=== PATIENT | male | born 1970 | race Caucasian/White ===

== ENCOUNTER 2022-01-06 07:49 | Emergency (ER) | payer MEDICAID, SELFPAY ==
[2022-01-06] VITALS (64 sets, daily range): BP systolic 132–165; BP diastolic 67–99; PULSE 59–81; RESP 0–21; TEMP 36.7; O2SAT 91–97
--- NOTE | 2022-01-06 07:30 | RT.EKG_ITS ---
APPROVED REPORT Exam: Resting ECG Reason for Exam: chest pressure Patient Location: E HR:64 bpm ECG Measurements Heart Rate 64 AXIS DE 67 P -14 QRSd 108 QRS 46 QT 437 T 88 QTc 450 Conclusion Sinus rhythm...normal P axis, V-rate 60- 99. Sinus. Normal axis. T wave inversion aVL. Less than 1mm ST elevation III and aVF. No STEMI. I have reviewed and interpreted ECG and agree with software generated interpretation.
--- NOTE | 2022-01-06 08:15 | DI.RAD_ITS ---
Exam(s) XR PORTABLE CHEST AP EXAM: XR PORTABLE CHEST AP CLINICAL HISTORY: shortness of breath, r/o acute disease TECHNIQUE: 2D digital imaging was performed of the chest. Two images were obtained. AP views were obtained. COMPARISON: No exams were available for comparison FINDINGS: MEDIASTINUM: Normal. HEART: Normal. The transvenous pacing wires are in good position. PULMONARY VASCULATURE: Normal. LUNGS: Clear. PLEURAL SPACE: No pleural effusion or pneumothorax. BONE:Within normal limits for the patient's age. OTHER FINDINGS:Normal. IMPRESSION: No acute pulmonary findings. DATA REPOSITORY: RADIATION DOSE DELIVERED:
--- NOTE | 2022-01-06 08:18 | ED.GENADUL_ITS ---
Discharge Plan Disposition Patient Disposition: HOME Condition: Stable Discharge Details Clinical Impression: Dyspnea on exertion, Noncompliance with medications Primary Care Provider: Unknown,Unknown ED Provider: Lisa Nieto Home Meds and New Rx's Prescriptions: New amiodarone 200 mg tablet 200 mg PO DAILY Qty: 30 0RF atorvastatin 80 mg tablet 80 mg PO DAILY Qty: 30 0RF bumetanide 1 mg tablet 1 mg PO BID Qty: 60 0RF citalopram 20 mg tablet 20 mg PO DAILY Qty: 30 0RF clopidogrel [Plavix] 75 mg tablet 75 mg PO DAILY Qty: 30 0RF folic acid 1 mg tablet 2 mg PO DAILY Qty: 30 0RF buspirone 15 mg tablet 30 mg PO BID Qty: 120 0RF gabapentin 300 mg capsule 300 mg PO TID Qty: 90 0RF hydralazine 50 mg tablet 50 mg PO TID Qty: 90 0RF isosorbide mononitrate 30 mg tablet extended release 24 hr 30 mg PO DAILY Qty: 30 0RF losartan 25 mg tablet 25 mg PO DAILY Qty: 30 0RF metoprolol succinate 25 mg tablet extended release 24 hr 75 mg PO DAILY Qty: 90 0RF nicotine 21 mg/24 hr patch 24 hour 1 patch transdermal DAILY Qty: 28 0RF pantoprazole [Protonix] 40 mg tablet,delayed release (DR/EC) 40 mg PO DAILY Qty: 30 0RF trazodone 50 mg tablet 50 mg PO QHS Qty: 30 0RF Continued atorvastatin 80 mg Tablet 80 mg PO QHS trazodone 50 mg Tablet 50 mg PO QHS isosorbide mononitrate 30 mg Tablet Extended Release 24 Hr 30 mg PO DAILY thiamine HCl (vitamin B1) [Vitamin B-1] 100 mg Tablet 100 mg PO DAILY clopidogrel 75 mg Tablet 75 mg PO DAILY aspirin 81 mg Tablet,Delayed Release (Dr/Ec) 81 mg PO DAILY citalopram 20 mg Tablet 30 mg PO DAILY pantoprazole 40 mg Tablet,Delayed Release (Dr/Ec) 40 mg PO DAILY losartan 25 mg Tablet 25 mg PO DAILY nicotine 21 mg/24 hr Patch 24 Hour 1 patch TRANSDERMAL Q24H bumetanide 1 mg Tablet 1 mg PO BID folic acid 1 mg Tablet 2 mg PO DAILY hydralazine 50 mg Tablet 50 mg PO TID buspirone 15 mg Tablet 30 mg PO BID multivitamin with iron-mineral Tablet 1 tab PO DAILY amiodarone 100 mg Tablet 100 mg PO DAILY gabapentin 300 mg Tablet 300 mg PO TID ranolazine 500 mg Tablet Extended Release 12 Hr 500 mg PO BID buprenorphine-naloxone 2-0.5 mg Film 1 film BUCCAL DAILY Rx Instructions: place 1 strip/tab under (each) side of tongue buprenorphine-naloxone 8-2 mg Film 1 film SUBLINGUAL DAILY metoprolol succinate 25 mg Capsule,Sprinkle,Er 24hr 75 mg PO DAILY Discharge Instructions Instructions: Dyspnea (ED) Additional Instructions: Your lab work, EKGs and imaging today are reassuring and showed no evidence of acute concerning or significant findings. Take your regular medications as directed. You were given prescriptions of all of your medications to fill tomorrow. Follow-up with [facility] services at [phone] as directed. You have been placed on care management list to arrange for a follow-up appointment with a primary care doctor for evaluation. Return immediately to the emergency department if you develop any worsening or new concerning symptoms. Discharge Data Discharge Physician: Lisa Nieto Medical Decision Making 0750 -- 51-year-old male with multiple medical problems including obesity, hypertension, hyperlipidemia, cardiac arrest, defibrillator, pacemaker and co ronary artery stent placement presents with intermittent shortness of breath and substernal chest pressure for the past few days, mostly worse with exertion. Has not taken any of his regular medications for the past 4 days as they were left in a friend's car. These meds include among others, amiodarone, Plavix, metoprolol, torsemide and Bumex, ativan, suboxone. EKG on arrival notes a rate of 64, sinus, normal axis, no STEMI. There is T wave inversion in aVL and less than [address] elevation in 3 and aVF but does not meet criteria for STEMI. EKG from [facility] October 2019 appears similar with no significant change today. He has 1+ pitting edema in the proximal lower extremities bilaterally. He has diminished lung sounds in the bases bilaterally but no obvious crackles, wheezes or rhonchi. His heart rate, blood pressure, respiratory rate and oxygen saturation are within normal limits. Differential diagnosis includes acute CHF, ACS, opiate withdrawal, benzodiazepine withdrawal, electrolyte abnormality, arrhythmia. Will obtain screening labs, chest x-ray, COVID swab and give 40 mg Lasix IV and 1 mg Ativan p.o. Review of [facility] and [facility] records note that patient has had 7 coronary stents placed dating back to 2001, ischemic cardiomyopathy with an EF of 45 to 50% and apical hypokinesis on echo 01/07/2021 who had an admission at [facility] in January 2021 for type I NSTEMI and subsequently underwent a left heart cath which noted in-stent restenosis of 4 prior stents not amenable to PCI or CABG and recommended medical management. 09 -- labs and imaging reviewed. Normal white blood cell count. Bicarb 33.6, review of [facility] records note a bicarb of 35 in January 21. BNP 1956. Troponin negative. COVID-negative. Chest x-ray no obvious acute disease. 1045 -- patient evaluated by [facility] with SBIRT due to substance abuse history and endorsed depression. He admits to self cutting. He denies any active suicidal plan. We will have evaluation by [facility]. 1200 -- Pt reassessed and still c/o shortness of breath - O2 sat 92%. Will give a dose of his bumetanide and check a d dimer. Will consult [facility] cardiology for recommendations. 1330 --patient evaluated by [facility] --patient denies suicidal plan. Safety plan made. Referral to [facility] for follow-up placed. 1500 --repeat EKG unchanged. Repeat troponin negative. Discussed with [facility] cardiology who reviewed patient's EKGs and appear unchanged compared to prior and no indication for treatment. Patient reassessed and he feels better. Oxygen saturation 97 to 99% while sitting up, and decreased to 92% while sleeping. Due to body habitus, suspected sleep apnea. Patient feels comfortable going home. Patient requested doses of his medication for this evening as well as prescriptions. Patient was given his daily dose of the medications today as well as doses for home this evening and refill all of his prescriptions. He is placed on care management list to arrange for a follow-up appoint with her primary care doctor for reevaluation. Usual and customary return precautions given prior to discharge. Medical Records Medical records reviewed: Yes I reviewed the patient's medical records. Imaging Data Radiologic Study: Radiologist's impression: XR PORTABLE CHEST AP CLINICAL HISTORY:? shortness of breath, r/o acute disease TECHNIQUE:? 2D digital imaging was performed of the chest.? Two images were obtained.? AP views were obtained. COMPARISON:? No exams were available for comparison FINDINGS: MEDIASTINUM: Normal.? HEART: Normal. The transvenous pacing wires are in good position. PULMONARY VASCULATURE: Normal. LUNGS: Clear. ? PLEURAL SPACE: No pleural effusion or pneumothorax. BONE:Within normal limits for the patient's age.? OTHER FINDINGS:Normal.? IMPRESSION: No acute pulmonary findings. CT CHEST PE CTA CLINICAL HISTORY: ? chest pain, sob, r/o PE. TECHNIQUE:? Imaging Protocol:? Axial CT angiography was performed with multi- slice acquisition and multi-planar and/or 3D reconstructions. CONTRAST MATERIAL:? Intravenous: Omnipaque 350 contrast volume:100 mL COMPARISON:? CR XR PORTABLE CHEST AP from 01/06/2022 FINDINGS: The examination is limited due to patient motion artifact.? Tracheobronchial tree: Patent where visualized. Pulmonary parenchyma: No consolidation or dominant measurable mass. No architectural distortion. Pulmonary Arteries: The peripheral pulmonary arteries are under opacified limiting evaluation.? No large central pulmonary embolus is identified.? Mediastinum and Lorraine: No dominant adenopathy or fluid collection.? The esophagus is unremarkable.? Visualized thyroid gland: Unremarkable.? Pleura: No effusion or pneumothorax. Heart: The heart is not dilated. Coronary artery calcifications are present.? There is no evidence of right heart strain.? No pericardial effusion.? Aorta: Thoracic aorta non-dilated. No evidence of dissection. Upper abdomen:? Unremarkable. Tubes, Catheters, and Lines: The patient has a dual lead pacing device. ? Soft tissues: Bilateral gynecomastia is present.? Bones: Within normal limits for the patient's age.There are old healed bilateral rib fractures noted. IMPRESSION: 1. Decreased opacification of the peripheral pulmonary arteries limiting evaluation.? No large central pulmonary embolus is identified.? No evidence of right heart strain. 2. No evidence of thoracic aortic aneurysm or dissection. 3. Results of this exam have been verbally communicated with provider. Lab Data Lab results reviewed: Yes I reviewed the patient's lab results. Labs: Laboratory Tests Range/Units 01/06/22 01/06/22 01/06/22 08:03 08:03 08:03 WBC (4.4-10.8) 10^3/uL 8.44 RBC (4.36-5.78) 10^6/uL 4.18 L Hgb (13.5-17.5) g/dL 12.7 L Hct (40.0-50.0) % 39.2 L MCV (80-95) fL 94 MCH (27.0-33.0) pg 30.4 MCHC (32.0-36.0) % 32.4 RDW (11.8-14.1) % 12.8 Plt Count (130-400) 10^3/uL 323 MPV (8.0-11.0) fL 9.7 Immature Gran % 0.7 Neutrophils % 66.5 Lymphocytes % 21.7 Monocytes % 7.8 Eosinophils % 2.6 Basophils % 0.7 Nucleated RBC % (0.0-0.3) % 0.0 Absolute Neutrophils (1.2-6.7) 10^3/uL 5.61 Absolute Lymphocytes (1.2-3.4) 10^3/uL 1.83 Absolute Monocytes (0.1-0.8) 10^3/uL 0.66 Absolute Eosinophils (0.0-0.7) 10^3/uL 0.22 Absolute Basophils (0.0-0.2) 10^3/uL 0.06 D-Dimer (<500) ng/mlFEU Sodium (136-145) mmol/L 140 Potassium (3.5-5.1) mmol/L 4.2 Chloride (98-107) mmol/L 104 Carbon Dioxide (21.0-32.0) mmol/L 33.6 H Anion Gap (3-11) mmol/L 2.4 L BUN (7-18) mg/dL 12 Creatinine (0.70-1.30) mg/dL 1.1 Est GFR (CKD-EPI 2020) (mL/min/1.73m2) 80.27 Glucose (74-106) mg/dL 123 H Calcium (8.5-10.1) mg/dL 9.0 Magnesium (1.8-2.4) mg/dL 1.8 Total Bilirubin (0.2-1.0) mg/dL 0.3 AST (15-37) U/L 10 L ALT (16-63) U/L 17 Alkaline Phosphatase (46-116) U/L 91 Troponin I (<or=60) ng/L < 50 NT-Pro-B Natriuret Pep (<300) pg/mL 1957 H Cancelled Total Protein (6.4-8.2) g/dL 7.5 Albumin (3.4-5.0) g/dL 3.5 COVID-19 Source SARS-CoV-2 (PCR) (Negative) Range/Units 01/06/22 01/06/22 01/06/22 08:03 08:30 11:18 WBC (4.4-10.8) 10^3/uL RBC (4.36-5.78) 10^6/uL Hgb (13.5-17.5) g/dL Hct (40.0-50.0) % MCV (80-95) fL MCH (27.0-33.0) pg MCHC (32.0-36.0) % RDW (11.8-14.1) % Plt Count (130-400) 10^3/uL MPV (8.0-11.0) fL Immature Gran % Neutrophils % Lymphocytes % Monocytes % Eosinophils % Basophils % Nucleated RBC % (0.0-0.3) % Absolute Neutrophils (1.2-6.7) 10^3/uL Absolute Lymphocytes (1.2-3.4) 10^3/uL Absolute Monocytes (0.1-0.8) 10^3/uL Absolute Eosinophils (0.0-0.7) 10^3/uL Absolute Basophils (0.0-0.2) 10^3/uL D-Dimer (<500) ng/mlFEU 925 H Sodium (136-145) mmol/L Potassium (3.5-5.1) mmol/L Chloride (98-107) mmol/L Carbon Dioxide (21.0-32.0) mmol/L Anion Gap (3-11) mmol/L BUN (7-18) mg/dL Creatinine (0.70-1.30) mg/dL Est GFR (CKD-EPI 2020) (mL/min/1.73m2) Glucose (74-106) mg/dL Calcium (8.5-10.1) mg/dL Magnesium (1.8-2.4) mg/dL Total Bilirubin (0.2-1.0) mg/dL AST (15-37) U/L ALT (16-63) U/L Alkaline Phosphatase (46-116) U/L Troponin I (<or=60) ng/L < 50 NT-Pro-B Natriuret Pep (<300) pg/mL Total Protein (6.4-8.2) g/dL Albumin (3.4-5.0) g/dL COVID-19 Source Nasal/Nares SARS-CoV-2 (PCR) (Negative) Negative ECG Data Attestation: I personally reviewed and interpreted this ECG (s) as follows: Interpretation: #1 -- rate of 64, sinus, t wave inversion in aVL, seen in previous, no stemi, no change from previous ekg from [facility] 2019. #2 -- rate of 59, sinus, t wave inversion in aVL, Q waves in III and aVF, seen in previous, no stemi, no change from previous. HPI General Mode of arrival: EMS . Date/Time Provider Initiated Documentation: 01/06/22 07:58 . Limitations to Documentation: no limitations . Information obtained by: patient . HPI Narrative: Patient is a 51-year-old male with a history of morbid obesity, cardiac arrest resulting in AICD and pacemaker in 2020, hypertension, hyperlipidemia, coronary artery stent placement presents for intermittent chest pain shortness of breath for the past 2 days. Patient states he recently moved to this area from . He states he picked up his medications 3 days ago including his diuretics, metoprolol, Plavix and amiodarone but left his medications in his friend's car and has not had them for a total of 4 days. He states the past 2 days he has felt intermittent substernal chest pressure and intermittent shortness of breath that becomes worse with exertion but does also occur at rest. He also admits to swelling in his legs which he noted today. Patient denies fever, cough, sore throat. He states he has not vaccinated for COVID. Related Data Home Medications Medication Instructions Recorded Confirmed amiodarone 200 mg tablet 200 mg PO DAILY 01/06/22 01/06/22 amiodarone 200 mg tablet 200 mg PO DAILY #30 tabs 01/06/22 aspirin 81 mg tablet,delayed 81 mg PO DAILY 01/06/22 01/06/22 release atorvastatin 80 mg tablet 80 mg PO DAILY #30 tabs 01/06/22 atorvastatin 80 mg tablet 80 mg PO QHS 01/06/22 01/06/22 bumetanide 1 mg tablet 1 mg PO BID 01/06/22 01/06/22 bumetanide 1 mg tablet 1 mg PO BID #60 tabs 01/06/22 buprenorphine 2 mg-naloxone 0.5 mg 1 film buccal DAILY 01/06/22 01/06/22 sublingual film buprenorphine 8 mg-naloxone 2 mg 1 film sublingual DAILY 01/06/22 01/06/22 sublingual film buspirone 15 mg tablet 30 mg PO BID 01/06/22 01/06/22 buspirone 15 mg tablet 30 mg PO BID #120 tabs 01/06/22 citalopram 20 mg tablet 20 mg PO DAILY #30 tabs 01/06/22 citalopram 20 mg tablet 30 mg PO DAILY 01/06/22 01/06/22 clopidogrel 75 mg tablet 75 mg PO DAILY 01/06/22 01/06/22 clopidogrel 75 mg tablet (Plavix) 75 mg PO DAILY #30 tabs 01/06/22 folic acid 1 mg tablet 2 mg PO DAILY 01/06/22 01/06/22 folic acid 1 mg tablet 2 mg PO DAILY #30 tabs 01/06/22 gabapentin 300 mg capsule 300 mg PO TID #90 caps 01/06/22 gabapentin 300 mg tablet 300 mg PO TID 01/06/22 01/06/22 hydralazine 50 mg tablet 50 mg PO TID 01/06/22 01/06/22 hydralazine 50 mg tablet 50 mg PO TID #90 tabs 01/06/22 isosorbide mononitrate 30 mg 30 mg PO DAILY 01/06/22 01/06/22 tablet,extended release 24 hr isosorbide mononitrate 30 mg 30 mg PO DAILY #30 tabs 01/06/22 tablet,extended release 24 hr losartan 25 mg tablet 25 mg PO DAILY 01/06/22 01/06/22 losartan 25 mg tablet 25 mg PO DAILY #30 tabs 01/06/22 metoprolol succinate 25 mg capsule 75 mg PO DAILY 01/06/22 01/06/22 sprinkle, ext. release 24 hr metoprolol succinate 25 mg 75 mg PO DAILY #90 tabs 01/06/22 tablet,extended release 24 hr multivitamin with iron-mineral 1 tab PO DAILY 01/06/22 01/06/22 nicotine 21 mg/24 hr daily 1 patch transdermal DAILY #28 ea 01/06/22 transdermal patch nicotine 21 mg/24 hr daily 1 patch transdermal Q24H 01/06/22 01/06/22 transdermal patch pantoprazole 40 mg tablet,delayed 40 mg PO DAILY 01/06/22 01/06/22 release pantoprazole 40 mg tablet,delayed 40 mg PO DAILY #30 tabs 01/06/22 release (Protonix) ranolazine 500 mg tablet,extended 500 mg PO BID 01/06/22 01/06/22 release,12 hr thiamine HCl (vitamin B1) 100 mg 100 mg PO DAILY 01/06/22 01/06/22 tablet (Vitamin B-1) trazodone 50 mg tablet 50 mg PO QHS 01/06/22 01/06/22 trazodone 50 mg tablet 50 mg PO QHS #30 tabs 01/06/22 Previous Rx's Medication Instructions Recorded amiodarone 200 mg tablet 200 mg PO DAILY #30 tabs 01/06/22 atorvastatin 80 mg tablet 80 mg PO DAILY #30 tabs 01/06/22 bumetanide 1 mg tablet 1 mg PO BID #60 tabs 01/06/22 buspirone 15 mg tablet 30 mg PO BID #120 tabs 01/06/22 citalopram 20 mg tablet 20 mg PO DAILY #30 tabs 01/06/22 clopidogrel 75 mg tablet (Plavix) 75 mg PO DAILY #30 tabs 01/06/22 folic acid 1 mg tablet 2 mg PO DAILY #30 tabs 01/06/22 gabapentin 300 mg capsule 300 mg PO TID #90 caps 01/06/22 hydralazine 50 mg tablet 50 mg PO TID #90 tabs 01/06/22 isosorbide mononitrate 30 mg 30 mg PO DAILY #30 tabs 01/06/22 tablet,extended release 24 hr losartan 25 mg tablet 25 mg PO DAILY #30 tabs 01/06/22 metoprolol succinate 25 mg 75 mg PO DAILY #90 tabs 01/06/22 tablet,extended release 24 hr nicotine 21 mg/24 hr daily 1 patch transdermal DAILY #28 ea 01/06/22 transdermal patch pantoprazole 40 mg tablet,delayed 40 mg PO DAILY #30 tabs 01/06/22 release (Protonix) trazodone 50 mg tablet 50 mg PO QHS #30 tabs 01/06/22 Allergies Allergy/AdvReac Type Severity Reaction Status Date / Time hydromorphone [From Dilaudid] Allergy Unverified 01/06/22 08:46 General Stated Complaint: Chest Pain GLADIS: 2 Review of Systems All systems reviewed & are unremarkable except as noted in HPI and below Constitutional Constitutional: Denies chills, Denies excessive sweating, Denies fatigue, Denies fever(s), Denies weakness and Denies weight loss Eyes Eyes: Reports system reviewed and no additional complaints, except as documented and Denies blurry vision ENT Ears, Nose, Mouth, and Throat: Denies vertigo, Denies dizziness, Denies otalgia, Denies nasal congestion, Denies sore throat and Denies throat swelling Cardiovascular Cardiovascular: Reports chest pain, Denies syncope, Denies rapid heart rate, Reports leg edema and Reports dyspnea Respiratory Respiratory: Denies chest congestion, Denies cough, Denies pain on inspiration and Reports dyspnea Gastrointestinal Gastrointestinal: Denies abdominal pain, Denies diarrhea and Denies vomiting Genitourinary Genitourinary: Denies hematuria, Denies dysuria and Denies flank pain Musculoskeletal Musculoskeletal: Denies back pain and Denies joint swelling Integumentary/Breasts Skin/Breast: Denies lesions and Denies rash Neurologic Neurologic: Denies behavioral changes, Denies confusion, Denies vertigo, Denies dizziness, Denies syncope, Denies localized weakness and Denies weakness Psychiatric Psychiatric: Denies behavioral changes, Denies confusion and Denies depression Endocrine Endocrine: Denies excessive sweating and Denies fatigue Hematologic/Lymphatic Hematologic/Lymphatic: Denies easy bruising and Denies lymphadenopathy Allergic/Immunologic Allergic/Immunologic: Denies throat swelling PFSH All Active Problems (Updated 01/06/22 @ 15:30 by Lisa Nieto DO) Dyspnea on exertion (Acute) Noncompliance with medications (Acute) Medical History (Updated 01/06/22 @ 15:30 by Lisa Nieto DO) Cardiac arrest HTN (hypertension) Hx of hyperlipidemia Morbid obesity Pacemaker Surgical History (Updated 01/06/22 @ 08:20 by Lisa Nieto DO) AICD (automatic cardioverter/defibrillator) present History of coronary artery stent placement History of hernia repair History of right knee joint replacement History of tonsillectomy Social History (Updated 01/06/22 @ 08:55 by Lisa Nieto DO) Smoking/Tobacco Use Status: Current-Occasional Tobacco Type: cigarettes Smoking risk assessment performed?: Yes Alcohol Intake: former Year quit: 2020 Details: Former heavy alcohol use. Substance use type: former substance user, marijuana and prescription drug Do you feel safe at home: Yes Do you feel safe in your relationship?: Yes Exam Const General: cooperative and anxious Orientation: alert, awake and oriented x3 HENMT Head: normal to inspection Ears: hearing grossly normal bilaterally and external ears normal General nose exam: external nose normal Face and sinus: normal facial exam Mouth: oral mucosae normal Throat: posterior oropharynx normal Eyes General: appearance normal, both eyes and all related structures Eyelids: eyelids normal Pupils: PERRL EOM: EOM intact bilaterally Neck Neck: normal visual inspection Chest Chest: normal inspection of the chest Resp Effort & Inspection: normal respiratory effort and able to speak in complete sentences Auscultation: diminished lung sounds bilaterally in the lower lung [place] Cardio Rate: regular rate Rhythm: regular rhythm GI Inspection: normal to inspection and obesity Palpation: soft, not firm, no guarding, no hepatosplenomegaly, no masses and nontender Auscultation: normal bowel sounds Back/Spine/Pelvis Back: no CVA tenderness Skin General skin exam: no rashes or lesions noted Neuro General: patient alert and patient awake Cognition: normal cognition Speech: speech normal Gait: normal gait Motor: muscle tone normal throughout Sensory Exam: no sensory deficits noted Extrem General: normal to inspection, full ROM, capillary refill normal and edema Laterality: bilateral (1+ pitting proximal lower legs) Psych Appearance: grossly normal Mental Status: mental status grossly normal Speech and Movement: speech and movement normal Affect: normal affect Thought Process: normal Course Vital Signs Vital signs: Vital Signs Temperature 98.1 F 01/06/22 07:48 Pulse 70 01/06/22 07:48 Respiratory Rate 21 01/06/22 07:48 Blood Pressure 148/78 H 01/06/22 07:48 Pulse Oximetry 97 01/06/22 07:48 Temperature 98.1 F 01/06/22 07:48 Temperature Source Temporal Artery Scan 01/06/22 07:48 Pulse 70 01/06/22 07:48 Respiratory Rate 21 01/06/22 08:05 Respiratory Effort Non-Labored 01/06/22 08:05 Respiratory Depth Normal 01/06/22 08:05 Respiratory Pattern Normal 01/06/22 08:05 Blood Pressure 148/78 H 01/06/22 07:48 Blood Pressure Position Sitting 01/06/22 07:48 Pulse Oximetry 97 01/06/22 07:48 Pain Level 8 01/06/22 07:48
[2022-01-06 08:24] LABS: Source Nasal/Nares
[2022-01-06] MEDS: LORazepam 1 MG TAB PO ×2 (08:24→11:25)
[2022-01-06] MEDS: Normal Saline Flush 10 ML SYR IVP ×3 (08:26→13:52)
[2022-01-06] MEDS: Furosemide 40 MG/4 ML VIAL IVP (08:26)
[2022-01-06 08:38] LABS: Abs Immature Grans 0.06 10^3/uL (0.0-0.06); Absolute Basophil Count 0.06 10^3/uL (0.0-0.2); Absolute Eosinophil Count 0.22 10^3/uL (0.0-0.7); Absolute Lymphocyte Count 1.83 10^3/uL (1.2-3.4); Absolute Monocyte Count 0.66 10^3/uL (0.1-0.8); Absolute Neutrophil Count 5.61 10^3/uL (1.2-6.7); Basophils % 0.7; Eosinophils % 2.6; HCT 39.2 % (40.0-50.0); HGB 12.7 g/dL (13.5-17.5); Immature Grans % 0.7; Lymphocytes % 21.7; MCH 30.4 pg (27.0-33.0); MCHC 32.4 % (32.0-36.0); MCV 94 fL (80-95); MPV 9.7 fL (8.0-11.0); Monocytes % 7.8; Neutrophils % 66.5; Platelet Count 323 10^3/uL (130-400); RBC 4.18 10^6/uL (4.36-5.78); RDW 12.8 % (11.8-14.1); RDW-SD 43.9 fL; WBC 8.44 10^3/uL (4.4-10.8)
[2022-01-06 08:50] LABS: ALT 17 U/L (16-63); AST 10 U/L (15-37); Albumin 3.5 g/dL (3.4-5.0); Alkaline Phosphatase 91 U/L (46-116); Anion Gap 2.4 mmol/L (3-11); BUN 12 mg/dL (7-18); Bilirubin, Total 0.3 mg/dL (0.2-1.0); CO2 33.6 mmol/L (21.0-32.0); CREATININE 1.1 mg/dL (0.70-1.30); Chloride 104 mmol/L (98-107); Estimated GFR 80.27 (mL/min/1.73m2); Glucose 123 mg/dL (74-106); Magnesium 1.8 mg/dL (1.8-2.4); NT-proBNP 1957 pg/mL (<300); Potassium 4.2 mmol/L (3.5-5.1); Sodium 140 mmol/L (136-145); Total Protein 7.5 g/dL (6.4-8.2); Troponin I < 50 ng/L (<or=60)
[2022-01-06 09:22] LABS: COVID-19 PCR Negative (Negative)
--- NOTE | 2022-01-06 09:30 | RT.EKG_ITS ---
APPROVED REPORT Exam: Resting ECG Reason for Exam: chest pain Patient Location: E HR:59 bpm ECG Measurements Heart Rate 59 AXIS DC 169 P 1 QRSd 107 QRS 45 QT 469 T 92 QTc 467 Conclusion Atrial-paced complexes...other complexes also detected Probable inferior infarct, old...Q>35mS, II III aVF. PACs. Q waves inferior leads. No STEMI. I have reviewed and interpreted ECG and agree with software generated interpretation.
[2022-01-06] MEDS: Buprenorphine/Naloxone 8 mg/2 mg FILM 1 EACH SL (11:26)
[2022-01-06 11:45] LABS: Troponin I < 50 ng/L (<or=60)
[2022-01-06 12:41] LABS: D-Dimer 925 ng/mlFEU (<500)
--- NOTE | 2022-01-06 12:45 | DI.CT_ITS ---
Exam(s) CT CHEST PE CTA EXAM: CT CHEST PE CTA CLINICAL HISTORY: chest pain, sob, r/o PE. TECHNIQUE: Imaging Protocol: Axial CT angiography was performed with multi-slice acquisition and mu lti-planar and/or 3D reconstructions. CONTRAST MATERIAL: Intravenous: Omnipaque 350 contrast volume:100 mL COMPARISON: CR XR PORTABLE CHEST AP from 01/06/2022 FINDINGS: The examination is limited due to patient motion artifact. Tracheobronchial tree: Patent where visualized. Pulmonary parenchyma: No consolidation or dominant measurable mass. No architectural distortion. Pulmonary Arteries: The peripheral pulmonary arteries are under opacified limiting evaluation. No la rge central pulmonary embolus is identified. Mediastinum and Lorraine: No dominant adenopathy or fluid collection. The esophagus is unremarkable. Visualized thyroid gland: Unremarkable. Pleura: No effusion or pneumothorax. Heart: The heart is not dilated. Coronary artery calcifications are present. There is no evidence of right heart strain. No pericardial effusion. Aorta: Thoracic aorta non-dilated. No evidence of dissection. Upper abdomen: Unremarkable. Tubes, Catheters, and Lines: The patient has a dual lead pacing device. Soft tissues: Bilateral gynecomastia is present. Bones: Within normal limits for the patient's age.There are old healed bilateral rib fractures noted. IMPRESSION: 1. Decreased opacification of the peripheral pulmonary arteries limiting evaluation. No large centra l pulmonary embolus is identified. No evidence of right heart strain. 2. No evidence of thoracic aortic aneurysm or dissection. 3. Results of this exam have been verbally communicated with provider. RADIATION DOSE DELIVERED: 740.33mGy.cm Total DLP DATA REPOSITORY: All CT scans at this facility are submitted to the National Radiology Data Registry (NRDR) Dose Index Registry (DIR) with the [employer] (A[employer]). RADIATION OPTIMIZATION: All CT scans at this facility use at least one of these dose optimization te chniques: automated exposure control; mA and/or kV adjustment per patient size (includes targeted exa ms where dose is matched to clinical indication); or iterative reconstruction.
[2022-01-06] MEDS: Bumetanide 1 MG TAB PO ×2 (12:55→16:18)
--- NOTE | 2022-01-06 13:39 | PDOC.MHCN ---
Date of service: 01/06/22 Time of Service: 13:00 PHQ-9 Over the last 2 weeks, how often have you been bothered by any of the following problems? 1. Little interest or pleasure in doing things: more than half the days 2. Feeling down, depressed, or hopeless: nearly every day 3. Trouble falling or staying asleep, or sleeping too much: nearly every day 4. Feeling tired or having little energy: nearly every day 5. Poor appetite or overeating: nearly every day 6. Feeling bad about yourself - or that you are a failure or have let yourself and your family down: nearly every day 7. Trouble concentrating on things, such as reading the newspaper or watching television: more than half the days 8. Moving or speaking so slowly that other people could have noticed? - Or the opposite - being so fidgety or restless that you have been moving around a lot more than usual: several days 9. Thoughts that you would be better off or of hurting yourself in some way: nearly every day Total score: 23 If you checked off any problems, how difficult have these problems made it for you to do your work, take care of things at home, or get along with other people?: somewhat difficult Source: Developed by Drs. Juan José Jovel, Camryn Romero, Jose Bryant and colleagues, with an educational bertha from [employer] Suicide Severity Rate CSSRS Have you wished you were or wished you could go to sleep and not wake up?: Yes Have you actually had any thoughts of killing yourself?: Yes CSSRS2 Have you been thinking about how you might do this?: Yes Have you had these thoughts and had some intention of acting on them?: No Have you started to work out or worked out the details of how to kill yourself? Do you intend to carry out this plan?: No CSSRS3 Have you ever done anything, started to do anything or prepared to do anything to end your life?: Yes CSSRS4 Was this within the past three months?: Yes Screening Score Total Score: 8 Screening: Positive Mental Health Emergency Note Release [facility] release signed:: Yes Reason for Visit Client presented to [facility] ED due to chest pains. Screener at [facility] talked with client about past drinking and drug use and at that time client endorsed SI and stated that he believes he would be better off sometimes. In the last 2 weeks has the pt presented for ES prior to today?: No Client Information Client is: Adult Outpatient Well Housed: No,status: Homeless Current Treatment Team if applicable First care steamer gum candy: Name: Julio Gaona Role: Outpatient therapist Contact Info: [phone] Second care steamer gum candy: Name: Augustina Hendrix Role: Medication provider Contact Info: [phone] Non Suicidal Self Injury Current: No History: yes, superficial cuts to forearms Safety Risk/Harm to Self or Others Current Ideation to Harm Self or Others: No Risk: Does risk to harm exist?: No Risk: Low Risk Duty to warn indicated: No Asssessment/Mental Status Appearance: Unremarkable Attitude: Cooperative Behavior: Unremarkable Speech: Normal Affect: Cogruent with mood Mood: Stressed and Anxious Thought process: Unremarkable Hallucinations: No Delusions: No Attention: Unremarkable Perception: Not impaired Orientation: Fully orientated Memory: Intact Insight: Fair Judgement: Fair Neurovegetative Symptoms Sleep: Decrease (Client states that he does not sleep at night due to racing thoughts. ) Appetitie: No change Interests: Decrease (Client states that he has no interest in doing anything. ) Energy: Decrease Libido: Not applicable Substance Use: Do you use nicotine?: Yes Have you used substances in the last 7 days?: No Additional Issues: Assaultive/Threatening Behavior: No Medical Concerns: Yes Client engaged in active self harm w/weapon: No Threatening to run away: No Child reported abuse/neglect: No Voluntarily presenting for services: Yes Domestic violence is a concern: No Extreme Psychosis or extreme behavior is present: No Impression Client appears laying down in hospital bed dressed in hospital attire when this tag writer arrives via zoom. Client is cooperative with assessment and answers all of the questions that are asked of him. Client appears to be guarded at the beginning of the assessment stating to this tag writer: I am fine for today, I am not going to do anything. As the assessment continued client stated: I am trying to get help before I get where I was a few weeks ago and need to seek treatment. Client appears to be showing fair insight and judgment, however will benefit from follow-up with outpatient service providers and [facility] ES. Resources Reosurces reviewed and given:: 988, Crisis Bed (Referral will be made for [facility] care bed) and [facility] (Therapy and medication management. ) Plan/Disposition Recommended Disposition: Crisis bed, No and [facility] Services [facility] Services: Therapy and Other (Medication management appointment). Plan: Client will be discharged from ED with pro-active safety plan which includes: referral for [facility] care bed, daily check-in phone calls initiated by [facility] at 9a through 01/09, follow-up appointment scheduled with outpatient therapist Bill Gaona 01/13/22, and outpatient medication provider Augustina Hendrix 01/26/22 @ 10a via zoom. Client is also able to provide warning signs that a crisis may be developing (isolation, anxious all of the time, deep depression, and not taking care of self) as well as internal coping strategies (deep breathes, meditation, reading, and going for a walk.) Client provided with [facility] ES phone number as well at 988 and [place] crisis text line. Person reported agreement to plan: Yes Reports/communication Outcome discussed with: ED/Personnel (Verbal passover given to ED attending physician Dr. Nieto)
[2022-01-06] MEDS: Omnipaque 350 MG/ML 100 ML BTL IJ (13:51)
[2022-01-06] MEDS: Aspirin 81 MG CHEW CH (16:15)
[2022-01-06] MEDS: Losartan 25 MG TAB PO (16:15)
[2022-01-06] MEDS: Amiodarone 200 MG TAB 100 MG PO (16:15)
[2022-01-06] MEDS: Clopidogrel 75 MG TAB PO (16:16)
[2022-01-06] MEDS: Gabapentin 300 MG CAP PO (16:16)
[2022-01-06] MEDS: busPIRone 15 MG TAB 60 MG PO (16:16)
[2022-01-06] MEDS: Isosorbide Mononitrate 30 MG TABCR PO (16:16)
[2022-01-06] MEDS: Pantoprazole 40 MG TABCR PO (16:17)
[2022-01-06] MEDS: hydrALAZINE 25 MG TAB 100 MG PO (16:17)
[2022-01-06] MEDS: Atorvastatin 40 MG TAB 80 MG PO (16:18)
[2022-01-06] MEDS: Gabapentin 300 MG CAP 600 MG PO (16:18)
[2022-01-06] MEDS: traZODone 50 MG TAB PO (16:18)
[2022-01-06] MEDS: LORazepam 1 MG TAB 2 MG PO (16:19)
--- NOTE | 2022-01-06 16:31 | NUR.NOTE ---
Nursing Note: Referral given to Care Management to call patient to see about assistance in getting prescriptions filled. Also, needs PCP for chest pain/SOB; within 1 week.
--- NOTE | 2022-01-07 11:38 | PDOC.ERCMACT ---
- If Service Date Differs Date of service: 01/07/22 Time of Service: 11:38 Care Management Activity Note Pramod is seen in the ED on 01/06/22 for chest pain and shortness of breath. CM receives a request from ED to assist patient in getting prescriptions filled and to help him establish care with a PCP. When CM calls the phone number on file ([phone]), the call is rejected. Patient has no other contact numbers listed, no one on his HIPAA, and no pharmacy listed in the chart.
== END 2022-01-06 16:28 | disposition home or self-care (01) ==
PROVIDERS: Emergency Provider Physician Assistant
DX: R06.00 Dyspnea, unspecified (principal); Z91.14 Patient's other noncompliance with medication regimen; I10 Essential (primary) hypertension; Z20.822 Contact with and (suspected) exposure to COVID-19; Z79.82 Long term (current) use of aspirin; F17.210 Nicotine dependence, cigarettes, uncomplicated
CPT/HCPCS: 36415; 71275; 80053; 87635; 93005; 96374; 99285; 71045; 83735; 83880; 84484; 85025; 85379; 93010; J1940; J3490

== ENCOUNTER 2022-01-08 16:15 | Emergency (ER) | payer OTHER, MEDICAID, SELFPAY ==
[2022-01-08] VITALS (42 sets, daily range): BP systolic 103–148; BP diastolic 48–88; PULSE 60–92; RESP 10–20; TEMP 36.6; O2SAT 94–95
--- NOTE | 2022-01-08 16:15 | RT.EKG_ITS ---
APPROVED REPORT Exam: Resting ECG Reason for Exam: CHEST PAIN Patient Location: E HR:85 bpm ECG Measurements Heart Rate 85 AXIS OR 117 P -3 QRSd 104 QRS 43 QT 390 T 93 QTc 465 Conclusion Sinus rhythm...normal P axis, V-rate 60- 99 Consider inferior infarct...Q >35mS in II III aVF. Sinus. Normal axis. No STEMI. I have reviewed and interpreted ECG and agree with software generated interpretation.
--- NOTE | 2022-01-08 17:02 | ED.GENADUL_ITS ---
Discharge Plan Disposition Patient Disposition: HOME Condition: Stable Discharge Details Clinical Impression: Chest pain, Acute exacerbation of chronic obstructive pulmonary disease Primary Care Provider: Unknown,Unknown ED Provider: Israel Rosa Home Meds and New Rx's Prescriptions: New prednisone 20 mg tablet See Rx Instructions .ROUTE .COMPLEX Qty: 18 0RF Rx Instructions: Take 3 tabs daily for 3 days, then 2 tabs daily for 3 days, then 1 tab daily for 3 days. doxycycline hyclate 100 mg tablet 100 mg PO BID 7 Days Qty: 14 0RF Continued isosorbide mononitrate 30 mg Tablet Extended Release 24 Hr 30 mg PO DAILY thiamine HCl (vitamin B1) [Vitamin B-1] 100 mg Tablet 100 mg PO DAILY aspirin 81 mg Tablet,Delayed Release (Dr/Ec) 81 mg PO DAILY multivitamin with iron-mineral Tablet 1 tab PO DAILY gabapentin 300 mg Tablet 300 mg PO TID ranolazine 500 mg Tablet Extended Release 12 Hr 500 mg PO BID buprenorphine-naloxone 8-2 mg Film 1 film SUBLINGUAL DAILY atorvastatin 80 mg tablet 80 mg PO DAILY Qty: 30 0RF bumetanide 1 mg tablet 1 mg PO BID Qty: 60 0RF citalopram 20 mg tablet 20 mg PO DAILY Qty: 30 0RF clopidogrel [Plavix] 75 mg tablet 75 mg PO DAILY Qty: 30 0RF folic acid 1 mg tablet 2 mg PO DAILY Qty: 30 0RF buspirone 15 mg tablet 30 mg PO BID Qty: 120 0RF hydralazine 50 mg tablet 50 mg PO TID Qty: 90 0RF losartan 25 mg tablet 25 mg PO DAILY Qty: 30 0RF metoprolol succinate 25 mg tablet extended release 24 hr 75 mg PO DAILY Qty: 90 0RF nicotine 21 mg/24 hr patch 24 hour 1 patch transdermal DAILY Qty: 28 0RF pantoprazole [Protonix] 40 mg tablet,delayed release (DR/EC) 40 mg PO DAILY Qty: 30 0RF trazodone 50 mg tablet 50 mg PO QHS Qty: 30 0RF amiodarone 200 mg Tablet 200 mg PO DAILY lorazepam 1 mg Tablet 1 mg PO BID Discharge Instructions Instructions: Chest Pain (ED), COPD (Chronic Obstructive Pulmonary Disease) (ED) Additional Instructions: Your blood tests, EKG and imaging today are reassuring and show no evidence of acute concerning or significant findings. Your symptoms may be secondary to a COPD exacerbation. Prescriptions for antibiotics and steroids sent electronically to your pharmacy. Use the inhaler as needed and directed for shortness of breath. Follow-up with your primary care doctor in 1 week. Return to the emergency department with any worsening or new concerning symptoms. Discharge Data Discharge Date/Time-TO BE ENTERED AT DEPARTURE: 01/08/22 20:49 Discharge Physician: Lisa Nieto Medical Decision Making <Lisa Nieto, DO - Last Filed: 01/12/22 08:40> Dr. Nieto 1640 -- 51-year-old male with a history of multiple medical problems including obesity, copd, hypertension, hyperlipidemia, cardiac arrest, defibrillator, pacemaker and coronary artery stent placement presents with persistent intermittent chest pain and shortness of breath for the past 5 days. Seen here 2 days ago for same complaint after he had not taken his medications for 4 days and had a reassuring work-up and was discharged home. He is requesting Ativan on arrival. This is not on his medication list but he states he has been prescribed this by [facility] but reports they were unable to refill this for him. Vitals within normal limits. EKG notes a rate of 85, sinus, normal axis, Q waves in inferior leads and no STEMI. His oxygen saturation is 93 to 96% on room air. He has diminished breath sounds throughout. Differential diagnosis includes COPD exacerbation, pneumonia, ACS, CHF,covid. Will obtain screening labs, portable chest x-ray, give albuterol and a dose of Ativan p.o. 1830 --labs and imaging reviewed. Normal white blood cell count. Troponin negative. BNP 786 which is better than previous result. Chest x-ray negative for acute disease. Covid negative. Patient reassessed and he feels better after neb treatment. Improved breath sounds throughout. Oxygen saturation 95% on room air. Patient is declining an additional albuterol neb. Considering his extensive cardiac history, will obtain a repeat troponin and EKG. If troponin EKG unremarkable, will plan for discharge to home with treatment for possible COPD exacerbation. 1999 --Case endorsed to Dr. Rosa to follow-up on repeat troponin. Dr. Rosa's documentation Patient was signed out pending repeat troponin. Plan was to discharge for peak troponin was negative. Repeat troponin has returned and is negative. Patient is chest free. Anxiety has diminished. Symptoms inconsistent with ACS. Patient stable for discharge. I have extensively reviewed the treatment plan and discharge instructions with the patient. I have addressed all patient concerns at this time. The patient was made aware of what symptoms to monitor for that would warrant a return to the emergency department. Discussed the plan with the patient, they demonstrate verbal understanding and agreement with our assessment and plan at this time. The documentation in this chart was dictated using Fusion[employer] dictation software. Please excuse any dictation errors. Medical Records Medical records reviewed: Yes I reviewed the patient's medical records. Imaging Data Radiologic Study: Radiologist's impression: XR Chest Exam date and time: 01/08/2022 5:26 PM Age: 51 years old Clinical indication: Shortness of breath TECHNIQUE: Imaging protocol: Radiologic exam of the chest. Views: 1 view. COMPARISON: CR XR PORTABLE CHEST AP 01/06/2022 8:53 AM FINDINGS: Tubes, catheters and devices: There is a left-sided pacemaker again seen. Lungs: Unremarkable. No consolidation. Pleural spaces: Unremarkable. No pleural effusion. No pneumothorax. Heart/Mediastinum: No change mild cardiomegaly. Bones/joints: Unremarkable. Other findings: The patient is slightly rotated to the right. IMPRESSION: No evidence for acute abnormality in the chest. Lab Data Lab results reviewed: Yes I reviewed the patient's lab results. Labs: Laboratory Tests Range/Units 01/08/22 01/08/22 01/08/22 16:54 16:54 16:54 WBC (4.4-10.8) 10^3/uL 10.48 RBC (4.36-5.78) 10^6/uL 3.96 L Hgb (13.5-17.5) g/dL 12.2 L Hct (40.0-50.0) % 36.5 L MCV (80-95) fL 92 MCH (27.0-33.0) pg 30.8 MCHC (32.0-36.0) % 33.4 RDW (11.8-14.1) % 12.8 Plt Count (130-400) 10^3/uL 297 MPV (8.0-11.0) fL 9.2 Immature Gran % 0.3 Neutrophils % 57.7 Lymphocytes % 28.5 Monocytes % 8.6 Eosinophils % 4.1 Basophils % 0.8 Nucleated RBC % (0.0-0.3) % 0.0 Absolute Neutrophils (1.2-6.7) 10^3/uL 6.05 Absolute Lymphocytes (1.2-3.4) 10^3/uL 2.99 Absolute Monocytes (0.1-0.8) 10^3/uL 0.90 H Absolute Eosinophils (0.0-0.7) 10^3/uL 0.43 Absolute Basophils (0.0-0.2) 10^3/uL 0.08 Sodium (136-145) mmol/L 139 Potassium (3.5-5.1) mmol/L 3.7 Chloride (98-107) mmol/L 101 Carbon Dioxide (21.0-32.0) mmol/L 32.6 H Anion Gap (3-11) mmol/L 5.4 BUN (7-18) mg/dL 15 Creatinine (0.70-1.30) mg/dL 1.0 Est GFR (CKD-EPI 2020) (mL/min/1.73m2) 90.00 Glucose (74-106) mg/dL 101 Calcium (8.5-10.1) mg/dL 8.8 Magnesium (1.8-2.4) mg/dL 1.9 Total Bilirubin (0.2-1.0) mg/dL 0.4 AST (15-37) U/L 13 L ALT (16-63) U/L 17 Alkaline Phosphatase (46-116) U/L 92 Troponin I (<or=60) ng/L < 50 NT-Pro-B Natriuret Pep (<300) pg/mL 786 H Total Protein (6.4-8.2) g/dL 7.1 Albumin (3.4-5.0) g/dL 3.4 COVID-19 Source SARS-CoV-2 (PCR) (Negative) Range/Units 01/08/22 01/08/22 18:00 20:00 WBC (4.4-10.8) 10^3/uL RBC (4.36-5.78) 10^6/uL Hgb (13.5-17.5) g/dL Hct (40.0-50.0) % MCV (80-95) fL MCH (27.0-33.0) pg MCHC (32.0-36.0) % RDW (11.8-14.1) % Plt Count (130-400) 10^3/uL MPV (8.0-11.0) fL Immature Gran % Neutrophils % Lymphocytes % Monocytes % Eosinophils % Basophils % Nucleated RBC % (0.0-0.3) % Absolute Neutrophils (1.2-6.7) 10^3/uL Absolute Lymphocytes (1.2-3.4) 10^3/uL Absolute Monocytes (0.1-0.8) 10^3/uL Absolute Eosinophils (0.0-0.7) 10^3/uL Absolute Basophils (0.0-0.2) 10^3/uL Sodium (136-145) mmol/L Potassium (3.5-5.1) mmol/L Chloride (98-107) mmol/L Carbon Dioxide (21.0-32.0) mmol/L Anion Gap (3-11) mmol/L BUN (7-18) mg/dL Creatinine (0.70-1.30) mg/dL Est GFR (CKD-EPI 2020) (mL/min/1.73m2) Glucose (74-106) mg/dL Calcium (8.5-10.1) mg/dL Magnesium (1.8-2.4) mg/dL Total Bilirubin (0.2-1.0) mg/dL AST (15-37) U/L ALT (16-63) U/L Alkaline Phosphatase (46-116) U/L Troponin I (<or=60) ng/L < 50 NT-Pro-B Natriuret Pep (<300) pg/mL Total Protein (6.4-8.2) g/dL Albumin (3.4-5.0) g/dL COVID-19 Source Nasal/Nares SARS-CoV-2 (PCR) (Negative) Negative ECG Data Attestation: I personally reviewed and interpreted this ECG (s) as follows: Interpretation: #1-- rate of 85, normal axis, sinus, no stemi. #2 -- rate of 60, normal axis, sinus, prolonged QT, no stemi. <Israel Rosa DO - Last Filed: 01/08/22 20:47> 1640 -- 51-year-old male with a history of multiple medical problems including obesity, copd, hypertension, hyperlipidemia, cardiac arrest, defibrillator, pacemaker and coronary artery stent placement presents with persistent intermittent chest pain and shortness of breath for the past 5 days. Seen here 2 days ago for same complaint after he had not taken his medications for 4 days and had a reassuring work-up and was discharged home. He is requesting Ativan on arrival. This is not on his medication list but he states he has been prescribed this by [facility] but reports they were unable to refill this for him. Vitals within normal limits. EKG notes a rate of 85, sinus, normal axis, Q waves in inferior leads and no STEMI. His oxygen saturation is 93 to 96% on room air. He has diminished breath sounds throughout. Differential diagnosis includes COPD exacerbation, pneumonia, ACS, CHF,covid. Will obtain screening labs, portable chest x-ray, give albuterol and a dose of Ativan p.o. 1830 --labs and imaging reviewed. Normal white blood cell count. Troponin negative. BNP 786 which is better than previous result. Chest x-ray negative for acute disease. Covid negative. Patient reassessed and he feels better after neb treatment. Improved breath sounds throughout. Oxygen saturation 95% on room air. Patient is declining an additional albuterol neb. Considering his extensive cardiac history, will obtain a repeat troponin and EKG. If troponin EKG unremarkable, will plan for discharge to home with treatment for possible COPD exacerbation. 1999 --Case endorsed to Dr. Rosa to follow-up on repeat troponin. Dr. Rosa's documentation Patient was signed out pending repeat troponin. Plan was to discharge for peak troponin was negative. Repeat troponin has returned and is negative. Patient is chest free. Anxiety has diminished. Symptoms inconsistent with ACS. Patient stable for discharge. I have extensively reviewed the treatment plan and discharge instructions with the patient. I have addressed all patient concerns at this time. The patient was made aware of what symptoms to monitor for that would warrant a return to the emergency department. Discussed the plan with the patient, they demonstrate verbal understanding and agreement with our assessment and plan at this time. The documentation in this chart was dictated using Fusion[employer] dictation software. Please excuse any dictation errors. HPI <Lisa Nieto DO - Last Filed: 01/12/22 08:40> General Mode of arrival: ambulatory . Date/Time Provider Initiated Documentation: 01/08/22 16:18 . Limitations to Documentation: no limitations . Information obtained by: patient . HPI Narrative: Patient is a 51-year-old male with a history of multiple medical problems including obesity, hypertension, hyperlipidemia, cardiac arrest, defibrillator, pacemaker and coronary artery stent placement presents with persistent intermittent chest pain and shortness of breath now with radiation of chest pain to his left arm. Patient was seen here 2 days ago for the same complaint after he was without all of his medications including multiple cardiac meds for 4 days and had a reassuring cardiac work-up and was discharged home. Patient states he was able to refill all of his medications and has been taking them as scheduled. He states he has had persistent intermittent left-sided chest pressure with intermittent radiation to his left arm in addition to intermittent shortness of breath. He states Soham is on his prescribed medications for NK cells but they were unable to refill this for him. Review of medications notes that this is not on his medication list from 2 days ago. Patient admits to a history of COPD and states he smokes occasionally. He denies any alcohol use since April 2021. He admits to a chronic nonproductive cough but denies fever, lower extremity swelling, vomiting or diarrhea. He states he did take his Suboxone this morning. Related Data Home Medications Medication Instructions Recorded Confirmed amiodarone 200 mg tablet 200 mg PO DAILY 01/06/22 01/08/22 aspirin 81 mg tablet,delayed 81 mg PO DAILY 01/06/22 01/08/22 release atorvastatin 80 mg tablet 80 mg PO DAILY #30 tabs 01/06/22 01/08/22 bumetanide 1 mg tablet 1 mg PO BID #60 tabs 01/06/22 01/08/22 buprenorphine 8 mg-naloxone 2 mg 1 film sublingual DAILY 01/06/22 01/08/22 sublingual film buspirone 15 mg tablet 30 mg PO BID #120 tabs 01/06/22 01/08/22 citalopram 20 mg tablet 20 mg PO DAILY #30 tabs 01/06/22 01/08/22 clopidogrel 75 mg tablet (Plavix) 75 mg PO DAILY #30 tabs 01/06/22 01/08/22 folic acid 1 mg tablet 2 mg PO DAILY #30 tabs 01/06/22 01/08/22 gabapentin 300 mg tablet 300 mg PO TID 01/06/22 01/08/22 hydralazine 50 mg tablet 50 mg PO TID #90 tabs 01/06/22 01/08/22 isosorbide mononitrate 30 mg 30 mg PO DAILY 01/06/22 01/08/22 tablet,extended release 24 hr losartan 25 mg tablet 25 mg PO DAILY #30 tabs 01/06/22 01/08/22 metoprolol succinate 25 mg 75 mg PO DAILY #90 tabs 01/06/22 01/08/22 tablet,extended release 24 hr multivitamin with iron-mineral 1 tab PO DAILY 01/06/22 01/08/22 nicotine 21 mg/24 hr daily 1 patch transdermal DAILY #28 ea 01/06/22 01/08/22 transdermal patch pantoprazole 40 mg tablet,delayed 40 mg PO DAILY #30 tabs 01/06/22 01/08/22 release (Protonix) ranolazine 500 mg tablet,extended 500 mg PO BID 01/06/22 01/08/22 release,12 hr thiamine HCl (vitamin B1) 100 mg 100 mg PO DAILY 01/06/22 01/08/22 tablet (Vitamin B-1) trazodone 50 mg tablet 50 mg PO QHS #30 tabs 01/06/22 01/08/22 doxycycline hyclate 100 mg tablet 100 mg PO BID 7 days #14 tabs 01/08/22 lorazepam 1 mg tablet 1 mg PO BID 01/08/22 01/08/22 prednisone 20 mg tablet See Rx Instructions .Route 01/08/22 .COMPLEX #18 tabs Previous Rx's Medication Instructions Recorded atorvastatin 80 mg tablet 80 mg PO DAILY #30 tabs 01/06/22 bumetanide 1 mg tablet 1 mg PO BID #60 tabs 01/06/22 buspirone 15 mg tablet 30 mg PO BID #120 tabs 01/06/22 citalopram 20 mg tablet 20 mg PO DAILY #30 tabs 01/06/22 clopidogrel 75 mg tablet (Plavix) 75 mg PO DAILY #30 tabs 01/06/22 folic acid 1 mg tablet 2 mg PO DAILY #30 tabs 01/06/22 hydralazine 50 mg tablet 50 mg PO TID #90 tabs 01/06/22 losartan 25 mg tablet 25 mg PO DAILY #30 tabs 01/06/22 metoprolol succinate 25 mg 75 mg PO DAILY #90 tabs 01/06/22 tablet,extended release 24 hr nicotine 21 mg/24 hr daily 1 patch transdermal DAILY #28 ea 01/06/22 transdermal patch pantoprazole 40 mg tablet,delayed 40 mg PO DAILY #30 tabs 01/06/22 release (Protonix) trazodone 50 mg tablet 50 mg PO QHS #30 tabs 01/06/22 doxycycline hyclate 100 mg tablet 100 mg PO BID 7 days #14 tabs 01/08/22 prednisone 20 mg tablet See Rx Instructions .Route 01/08/22 .COMPLEX #18 tabs Allergies Allergy/AdvReac Type Severity Reaction Status Date / Time hydromorphone [From Dilaudid] Allergy Unverified 01/08/22 16:27 General Stated Complaint: Chest Pain GLADIS: 2 Review of Systems <Lisa Nieto DO - Last Filed: 01/12/22 08:40> All systems reviewed & are unremarkable except as noted in HPI and below Constitutional Constitutional: Denies chills, Denies excessive sweating, Denies fatigue, Denies fever(s), Denies weakness and Denies weight loss Eyes Eyes: Reports system reviewed and no additional complaints, except as documented and Denies blurry vision ENT Ears, Nose, Mouth, and Throat: Denies vertigo, Denies dizziness, Denies otalgia, Denies nasal congestion, Denies sore throat and Denies throat swelling Cardiovascular Cardiovascular: Reports chest pain, Denies syncope, Denies rapid heart rate, Reports radiating jaw, neck or arm pain and Reports dyspnea Respiratory Respiratory: Denies chest congestion, Denies cough, Denies pain on inspiration and Reports dyspnea Gastrointestinal Gastrointestinal: Denies abdominal pain, Denies diarrhea and Denies vomiting Genitourinary Genitourinary: Denies hematuria, Denies dysuria and Denies flank pain Musculoskeletal Musculoskeletal: Denies back pain and Denies joint swelling Integumentary/Breasts Skin/Breast: Denies lesions and Denies rash Neurologic Neurologic: Denies behavioral changes, Denies confusion, Denies vertigo, Denies dizziness, Denies syncope, Denies localized weakness and Denies weakness Psychiatric Psychiatric: Denies behavioral changes, Denies confusion and Denies depression Endocrine Endocrine: Denies excessive sweating and Denies fatigue Hematologic/Lymphatic Hematologic/Lymphatic: Denies easy bruising and Denies lymphadenopathy Allergic/Immunologic Allergic/Immunologic: Denies throat swelling PFSH <Lisa Nieto DO - Last Filed: 01/12/22 08:40> All Active Problems (Updated 01/08/22 @ 20:15 by Lisa Nieto DO) Dyspnea on exertion (Acute) Noncompliance with medications (Acute) Chest pain (Acute) Acute exacerbation of chronic obstructive pulmonary disease (Acute) Medical History (Updated 01/08/22 @ 20:15 by Lisa Nieto DO) Cardiac arrest HTN (hypertension) Hx of hyperlipidemia Morbid obesity Pacemaker Surgical History (Updated 01/06/22 @ 08:20 by Lisa Nieto DO) AICD (automatic cardioverter/defibrillator) present History of coronary artery stent placement History of hernia repair History of right knee joint replacement History of tonsillectomy Social History (Updated 01/06/22 @ 08:55 by Lisa Nieto DO) Smoking/Tobacco Use Status: Current-Occasional Tobacco Type: cigarettes Smoking risk assessment performed?: Yes Alcohol Intake: former Year quit: 2020 Details: Former heavy alcohol use. Substance use type: former substance user, marijuana and prescription drug Do you feel safe at home: Yes Do you feel safe in your relationship?: Yes Exam <Lisa Nieto DO - Last Filed: 01/12/22 08:40> Const General: cooperative and no acute distress Orientation: alert, awake and oriented x3 HENMT Head: normal to inspection Ears: hearing grossly normal bilaterally and external ears normal General nose exam: external nose normal Face and sinus: normal facial exam Mouth: oral mucosae normal Eyes General: appearance normal, both eyes and all related structures Eyelids: eyelids normal Pupils: PERRL EOM: EOM intact bilaterally Neck Neck: normal visual inspection Lymphatic: no lymphadenopathy noted Chest Chest: normal inspection of the chest Resp Effort & Inspection: normal respiratory effort and able to speak in complete sentences Auscultation: diminished lung sounds bilaterally throughout Cardio Rate: regular rate Rhythm: regular rhythm GI Inspection: normal to inspection and obesity Palpation: soft, not firm, no guarding, no hepatosplenomegaly, no masses and nontender Auscultation: hypoactive bowel sounds Skin General skin exam: no rashes or lesions noted Neuro General: patient alert and patient awake Cognition: normal cognition Speech: speech normal Motor: muscle tone normal throughout Sensory Exam: no sensory deficits noted Extrem General: normal to inspection, full ROM, capillary refill normal and no edema Psych Appearance: grossly normal Mental Status: mental status grossly normal Speech and Movement: speech and movement normal Affect: normal affect Thought Process: normal Course <Lisa Nieto DO - Last Filed: 01/12/22 08:40> Vital Signs Vital signs: Vital Signs Temperature 97.9 F 01/08/22 16:18 Pulse 92 H 01/08/22 16:18 Respiratory Rate 18 01/08/22 16:18 Pulse Oximetry 95 01/08/22 16:18 Temperature 97.9 F 01/08/22 16:18 Temperature Source Temporal Artery Scan 01/08/22 16:18 Pulse 66 01/08/22 16:33 Respiratory Rate 12 01/08/22 16:43 Respiratory Effort Non-Labored 01/08/22 16:43 Respiratory Depth Normal 01/08/22 16:43 Respiratory Pattern Normal 01/08/22 16:43 Blood Pressure 125/70 01/08/22 16:33 Blood Pressure Mean 84 01/08/22 16:33 Blood Pressure Position Sitting 01/08/22 16:18 Pulse Oximetry 95 01/08/22 16:18 Oxygen Delivery Method Room Air 01/08/22 16:18 Oxygen Flow Rate 0 01/08/22 16:18 Pain Level 7 01/08/22 16:43 Sign Out <Lisa Nieto DO - Last Filed: 01/12/22 08:40> Sign Out Data: Sign Out Comment: Chest pain and shortness of breath. Follow-up on repeat troponin and EKG after 8:00. Consider COPD exacerbation with plan for discharge home with antibiotics, steroid prescription and inhaler. Last updated by Lisa Nieto DO at 01/08/22 19:14
[2022-01-08 17:04] LABS: Abs Immature Grans 0.03 10^3/uL (0.0-0.06); Absolute Basophil Count 0.08 10^3/uL (0.0-0.2); Absolute Eosinophil Count 0.43 10^3/uL (0.0-0.7); Absolute Lymphocyte Count 2.99 10^3/uL (1.2-3.4); Absolute Neutrophil Count 6.05 10^3/uL (1.2-6.7); Basophils % 0.8; Eosinophils % 4.1; HCT 36.5 % (40.0-50.0); HGB 12.2 g/dL (13.5-17.5); Immature Grans % 0.3; Lymphocytes % 28.5; MCH 30.8 pg (27.0-33.0); MCHC 33.4 % (32.0-36.0); MCV 92 fL (80-95); MPV 9.2 fL (8.0-11.0); Monocytes % 8.6; Neutrophils % 57.7; Platelet Count 297 10^3/uL (130-400); RBC 3.96 10^6/uL (4.36-5.78); RDW 12.8 % (11.8-14.1); RDW-SD 43.4 fL; WBC 10.48 10^3/uL (4.4-10.8)
--- NOTE | 2022-01-08 17:06 | DI.RAD_ITS ---
Exam(s) XR PORTABLE CHEST AP EXAM: XR PORTABLE CHEST AP CLINICAL HISTORY: chest pain, sob, r/o acute disease TECHNIQUE: 2D digital imaging was performed of the chest. Two images were obtained. AP views were obtained. COMPARISON: CR XR PORTABLE CHEST AP from 01/06/2022 FINDINGS: MEDIASTINUM: Normal. HEART: Normal. Transvenous pacing wires are stable. PULMONARY VASCULATURE: Normal. LUNGS: Clear. PLEURAL SPACE: No pleural effusion or pneumothorax. BONE:Within normal limits for the patient's age. OTHER FINDINGS:Normal. IMPRESSION: No acute pulmonary findings. DATA REPOSITORY: RADIATION DOSE DELIVERED:
[2022-01-08] MEDS: Normal Saline 1,000 ML 1000 ML IV (17:11)
[2022-01-08] MEDS: LORazepam 1 MG TAB PO (17:18)
[2022-01-08] MEDS: Albuterol/Ipratropium 3 ML UPD VIAL UPD (17:19)
[2022-01-08 17:36] LABS: ALT 17 U/L (16-63); AST 13 U/L (15-37); Albumin 3.4 g/dL (3.4-5.0); Alkaline Phosphatase 92 U/L (46-116); Anion Gap 5.4 mmol/L (3-11); BUN 15 mg/dL (7-18); Bilirubin, Total 0.4 mg/dL (0.2-1.0); CO2 32.6 mmol/L (21.0-32.0); Calcium 8.8 mg/dL (8.5-10.1); Chloride 101 mmol/L (98-107); Glucose 101 mg/dL (74-106); Magnesium 1.9 mg/dL (1.8-2.4); Potassium 3.7 mmol/L (3.5-5.1); Sodium 139 mmol/L (136-145); Total Protein 7.1 g/dL (6.4-8.2); Troponin I < 50 ng/L (<or=60)
[2022-01-08 17:37] LABS: NT-proBNP 786 pg/mL (<300)
[2022-01-08 18:02] LABS: Source Nasal/Nares
[2022-01-08 18:34] LABS: COVID-19 PCR Negative (Negative)
[2022-01-08] MEDS: methylPREDNISolone SUCC 125 MG VIAL IVP (18:53)
[2022-01-08] MEDS: ACETAMINOPHEN 1,000 MG/100 ML BTL 400 MG IVPB (18:56)
--- NOTE | 2022-01-08 19:24 | DI.VRAD_ITS ---
PROCEDURE INFORMATION: Exam: XR Chest Exam date and time: 01/08/2022 5:26 PM Age: 51 years old Clinical indication: Shortness of breath TECHNIQUE: Imaging protocol: Radiologic exam of the chest. Views: 1 view. COMPARISON: CR XR PORTABLE CHEST AP 01/06/2022 8:53 AM FINDINGS: Tubes, catheters and devices: There is a left-sided pacemaker again seen. Lungs: Unremarkable. No consolidation. Pleural spaces: Unremarkable. No pleural effusion. No pneumothorax. Heart/Mediastinum: No change mild cardiomegaly. Bones/joints: Unremarkable. Other findings: The patient is slightly rotated to the right. IMPRESSION: No evidence for acute abnormality in the chest. Dictated and Authenticated by: Ghazal Paulson MD. Ordering:REJI Gonzalez MD
--- NOTE | 2022-01-08 20:00 | RT.EKG_ITS ---
APPROVED REPORT Exam: Resting ECG Reason for Exam: chest pain Patient Location: E HR:60 bpm ECG Measurements Heart Rate 60 AXIS WI 109 P 10 QRSd 102 QRS 37 QT 502 T 65 QTc 501 Conclusion Atrial-paced complexes...other complexes also detected Prolonged QT interval...QTc >500mS. Sinus. PACs. Prolonged QT. No STEMI. I have reviewed and interpreted ECG and agree with software generated interpretation.
[2022-01-08 20:25] LABS: Troponin I < 50 ng/L (<or=60)
[2022-01-08] MEDS: Inhaler, Assist Device 1 EACH MC (20:37)
[2022-01-08] MEDS: Albuterol HFA 8 GM 60 PUFF INH IH (20:37)
--- NOTE | 2022-01-12 10:21 | PDOC.ERCMACT ---
- If Service Date Differs Date of service: 01/12/22 Time of Service: 10:21 Care Management Activity Note Pramod is seen in the ED for chest pain and exacerbation of COPD. At the request of ED provider, BENJI coordinates a referral to Dr. Mable Bhat of [facility], on-call provider, to assist Pramod in obtaining a follow up appointment and in establishing care with a PCP. He has [employer] for insurance.
== END 2022-01-08 20:49 | disposition home or self-care (01) ==
PROVIDERS: Physician Assistant; Emergency Provider Student in an Organized Health Care Education/Training Program
DX: J44.1 Chronic obstructive pulmonary disease with (acute) exacerbation (principal); R07.9 Chest pain, unspecified; I10 Essential (primary) hypertension; F17.210 Nicotine dependence, cigarettes, uncomplicated; Z86.74 Personal history of sudden cardiac arrest; Z95.0 Presence of cardiac pacemaker; Z20.822 Contact with and (suspected) exposure to COVID-19; Z95.5 Presence of coronary angioplasty implant and graft; Z79.82 Long term (current) use of aspirin
CPT/HCPCS: 36415; 36416; 80053; 82962; 87635; 93005; 96361; 96374; 99284; 71045; 83735; 83880; 84484; 85025; 93010; 99285; J0131; J2930; J7620

== ENCOUNTER 2022-01-26 10:47 | Emergency (ER) | payer MEDICAID, SELFPAY ==
[2022-01-26 10:53] VITALS: BP 130/67; PULSE 80; RESP 18; TEMP 36.6; O2SAT 96
[2022-01-26 11:18] LABS: Bilirubin Negative (Negative); Blood Trace-intact (Negative); Clarity Clear (Clear); Glucose Negative (Negative); Ketones Negative (Negative); Leukocyte Esterase Negative (Negative); Nitrite Negative (Negative); Urobilinogen 0.2 EU/dL (Up TO 0.2)
--- NOTE | 2022-01-26 11:18 | NUR.NOTE ---
Nursing Note:this person is sitting 1:1 with pt. nurse is in room for assessment. pt is sitting on bed. observed pt sweating heavily, rocking back and forth, holding chest.
[2022-01-26 11:24] LABS: Bacteria Negative HPF (Negative); C & S Indicated? No; Casts Negative LPF (Negative); Crystals Negative HPF (Negative); Epithelial Cells Rare HPF (Negative); Mucus Negative (Negative); WBC Negative HPF (0-5)
--- NOTE | 2022-01-26 11:32 | ED.GENADUL_ITS ---
Discharge Plan Disposition Patient Disposition: [facility] Condition: Serious Discharge Details Clinical Impression: Suicidal ideation Primary Care Provider: Unknown,Unknown ED Provider: Vance Wood Home Meds and New Rx's Prescriptions: New lorazepam [Ativan] 0.5 mg tablet 0.5 mg PO BID PRN (Reason: anxiety) Qty: 10 0RF Continued isosorbide mononitrate 30 mg Tablet Extended Release 24 Hr 30 mg PO DAILY thiamine HCl (vitamin B1) [Vitamin B-1] 100 mg Tablet 100 mg PO DAILY aspirin 81 mg Tablet,Delayed Release (Dr/Ec) 81 mg PO DAILY multivitamin with iron-mineral Tablet 1 tab PO DAILY gabapentin 300 mg Tablet 300 mg PO TID ranolazine 500 mg Tablet Extended Release 12 Hr 500 mg PO BID atorvastatin 80 mg tablet 80 mg PO DAILY Qty: 30 0RF bumetanide 1 mg tablet 1 mg PO BID Qty: 60 0RF citalopram 20 mg tablet 20 mg PO DAILY Qty: 30 0RF clopidogrel [Plavix] 75 mg tablet 75 mg PO DAILY Qty: 30 0RF folic acid 1 mg tablet 2 mg PO DAILY Qty: 30 0RF buspirone 15 mg tablet 30 mg PO BID Qty: 120 0RF hydralazine 50 mg tablet 50 mg PO TID Qty: 90 0RF losartan 25 mg tablet 25 mg PO DAILY Qty: 30 0RF metoprolol succinate 25 mg tablet extended release 24 hr 75 mg PO DAILY Qty: 90 0RF nicotine 21 mg/24 hr patch 24 hour 1 patch transdermal DAILY Qty: 28 0RF pantoprazole [Protonix] 40 mg tablet,delayed release (DR/EC) 40 mg PO DAILY Qty: 30 0RF trazodone 50 mg tablet 50 mg PO QHS Qty: 30 0RF amiodarone 200 mg Tablet 200 mg PO DAILY lorazepam 1 mg Tablet 1 mg PO BID buprenorphine-naloxone 2-0.5 mg Tablet, Sublingual 1 tab SUBLINGUAL buprenorphine-naloxone 2-0.5 mg Film 1 film sublingual DAILY Discharge Instructions Instructions: Depression (ED) Additional Instructions: Medical work-up in the emergency department included a negative SARS-CoV-2 test. You are medically stable for discharge from the emergency department. Discharge Data Discharge Date/Time-TO BE ENTERED AT DEPARTURE: 01/27/22 15:18 Medical Decision Making <SHERINE Porter - Last Filed: 01/27/22 11:11> Patient is a pleasant 51-year-old male with past medical history of hypertension, morbid obesity, anxiety, depression, presenting today for increase of his anxiety and depression as well as suicidal ideation. Patient reports that he has been hospitalized x1 for his mental health, states this is about 1 month ago at which time he is hospitalized at [facility]. He states that he was started on citalopram at that time. He reports that he has lost about 10 members of his family over the past year and also went through a divorce and has had unstable housing. He is currently placed will tell and states that this housing should be available to him through the winter. He states that he has been attempting suicide at home with a broken plastic cutlery but has not been able to get deep enough to truly cause any damage. He does not have alternative methods of suicidal plan but reports he often looks for a sharper blade to be able to harm himself with. He does reference having friends locally but sounds somewhat embarrassed around his mental health and having them involved in this. Patient states that he suffers from crippling anxiety attacks that make him have chest pain so short of breath. He states that he has been ongoing for the past several months. He denies any chest pain currently. He has been using his Ativan with some relief. On exam, patient appears nontoxic. He is resting comfortably. Has good eye contact. He seems to be forward thinking, is concerned about his future housing that may be limited by seeking care fo [facility]. He has multiple linear abrasions to the left forearm, no deep wound. Has old/scared areas in this area as well. No surrounding erythema, warmth, drainage. No pain with palpation. No active bleeding, no drainage. Lungs clear, normal cardiac exam. Concerned at this time for patient MH. He has had several panic attacks recently. He states that he has sensation of CP and SOB, with his PMH will check ECG and troponin as well. Will consult with regardin ghis deteriorating MH and suicidal intent. One to one observer. As patient appears anxiousa nd endourses anxiety currently, offered anxiolytic which patient agrees to. Patient feels much improved with ativan. Was also given his daily Citalopram as he reports he did not take it as of yet today. Eating/drinking, anxiety controlled. He reports feeling safe here. He has been safe and agreeable, remains voluntary. Evaluated by , they agree with inpatient admission in either psychiatric facility or care bed. At hte end of my shift, care transition to Neel Blackman NP with disposition from pending. Patient given another dose of Ativan as his anxiety did begin to increase. 1699-care received from SHERINE Porter. Patient pending voluntary admission to psychiatric facility. Patient in stable condition with no worsening of symptoms. We will continue to monitor and treat anxiety as needed. 1899-patient asleep and resting comfortably in bed. We will continue to monitor. 1999-patient requesting nightly meds and is otherwise calm. Will order all of patient's medications that he typically takes in the evening. 2114-patient states that he is starting to have increased anxiety so requesting a Ativan which I feel is appropriate. Will give patient 1 mg p.o. dose. Patient did take all of his evening meds <Tyrone Blackman NP - Last Filed: 01/27/22 16:13> Patient is a pleasant 51-year-old male with past medical history of hypertensi on, morbid obesity, anxiety, depression, presenting today for increase of his anxiety and depression as well as suicidal ideation. Patient reports that he has been hospitalized x1 for his mental health, states this is about 1 month ago at which time he is hospitalized at [facility]. He states that he was started on citalopram at that time. He reports that he has lost about 10 members of his family over the past year and also went through a divorce and has had unstable housing. He is currently placed will tell and states that this housing should be available to him through the winter. He states that he has been attempting suicide at home with a broken plastic cutlery but has not been able to get deep enough to truly cause any damage. He does not have alternative methods of suicidal plan but reports he often looks for a sharper blade to be able to harm himself with. He does reference having friends locally but sounds somewhat embarrassed around his mental health and having them involved in this. Patient states that he suffers from crippling anxiety attacks that make him have chest pain so short of breath. He states that he has been ongoing for the past several months. He denies any chest pain currently. He has been using his Ativan with some relief. 1699-care received from SHERINE Porter. Patient pending voluntary admission to psychiatric facility. Patient in stable condition with no worsening of symptoms. We will continue to monitor and treat anxiety as needed. 1899-patient asleep and resting comfortably in bed. We will continue to monitor. 1999-patient requesting nightly meds and is otherwise calm. Will order all of patient's medications that he typically takes in the evening. 2114-patient states that he is starting to have increased anxiety so requesting a Ativan which I feel is appropriate. Will give patient 1 mg p.o. dose. Patient did take all of his evening meds HPI <SHERINE Porter - Last Filed: 01/27/22 11:11> General Date/Time Provider Initiated Documentation: 01/26/22 11:32 . Limitations to Documentation: no limitations . Information obtained by: patient, EMS and RN notes reviewed . History of Present Illness 51 year old M presents to the emergency department with the chief complaint of suicidal ideation, described as severe, Patient started experiencing this year(s) (past year has had several increased social stressors, increased anxiety/depression) and it has been constant. No relieving factors improve symptom(s), Other factors that worsen symptoms (social stressors) . Patient notes chest pain (states he has had CP associated with his known panic attacks) and shortness of breath (associated with panic attacks); denies confusion, cough, diaphoresis, fever/chills, headaches, loss of appetite, malaise, nausea/vomiting, rash, syncope and weakness. Patient did receive the following treatments prior to arrival, none Related Data Home Medications Medication Instructions Recorded Confirmed amiodarone 200 mg tablet 200 mg PO DAILY 01/06/22 01/26/22 aspirin 81 mg tablet,delayed 81 mg PO DAILY 01/06/22 01/26/22 release atorvastatin 80 mg tablet 80 mg PO DAILY #30 tabs 01/06/22 01/26/22 bumetanide 1 mg tablet 1 mg PO BID #60 tabs 01/06/22 01/26/22 buspirone 15 mg tablet 30 mg PO BID #120 tabs 01/06/22 01/26/22 citalopram 20 mg tablet 20 mg PO DAILY #30 tabs 01/06/22 01/26/22 clopidogrel 75 mg tablet (Plavix) 75 mg PO DAILY #30 tabs 01/06/22 01/26/22 folic acid 1 mg tablet 2 mg PO DAILY #30 tabs 01/06/22 01/26/22 gabapentin 300 mg tablet 300 mg PO TID 01/06/22 01/26/22 hydralazine 50 mg tablet 50 mg PO TID #90 tabs 01/06/22 01/26/22 isosorbide mononitrate 30 mg 30 mg PO DAILY 01/06/22 01/26/22 tablet,extended release 24 hr losartan 25 mg tablet 25 mg PO DAILY #30 tabs 01/06/22 01/26/22 metoprolol succinate 25 mg 75 mg PO DAILY #90 tabs 01/06/22 01/26/22 tablet,extended release 24 hr multivitamin with iron-mineral 1 tab PO DAILY 01/06/22 01/26/22 nicotine 21 mg/24 hr daily 1 patch transdermal DAILY #28 ea 01/06/22 01/26/22 transdermal patch pantoprazole 40 mg tablet,delayed 40 mg PO DAILY #30 tabs 01/06/22 01/26/22 release (Protonix) ranolazine 500 mg tablet,extended 500 mg PO BID 01/06/22 01/26/22 release,12 hr thiamine HCl (vitamin B1) 100 mg 100 mg PO DAILY 01/06/22 01/26/22 tablet (Vitamin B-1) trazodone 50 mg tablet 50 mg PO QHS #30 tabs 01/06/22 01/26/22 lorazepam 1 mg tablet 1 mg PO BID 01/08/22 01/26/22 buprenorphine 2 mg-naloxone 0.5 mg 1 film sublingual DAILY 01/26/22 01/26/22 sublingual film buprenorphine 2 mg-naloxone 0.5 mg 1 tab sublingual 01/26/22 sublingual tablet lorazepam 0.5 mg tablet (Ativan) 0.5 mg PO BID PRN anxiety #10 tabs 01/27/22 Previous Rx's Medication Instructions Recorded atorvastatin 80 mg tablet 80 mg PO DAILY #30 tabs 01/06/22 bumetanide 1 mg tablet 1 mg PO BID #60 tabs 01/06/22 buspirone 15 mg tablet 30 mg PO BID #120 tabs 09/06/22 citalopram 20 mg tablet 20 mg PO DAILY #30 tabs 01/06/22 clopidogrel 75 mg tablet (Plavix) 75 mg PO DAILY #30 tabs 01/06/22 folic acid 1 mg tablet 2 mg PO DAILY #30 tabs 01/06/22 hydralazine 50 mg tablet 50 mg PO TID #90 tabs 01/06/22 losartan 25 mg tablet 25 mg PO DAILY #30 tabs 01/06/22 metoprolol succinate 25 mg 75 mg PO DAILY #90 tabs 01/06/22 tablet,extended release 24 hr nicotine 21 mg/24 hr daily 1 patch transdermal DAILY #28 ea 01/06/22 transdermal patch pantoprazole 40 mg tablet,delayed 40 mg PO DAILY #30 tabs 01/06/22 release (Protonix) trazodone 50 mg tablet 50 mg PO QHS #30 tabs 01/06/22 lorazepam 0.5 mg tablet (Ativan) 0.5 mg PO BID PRN anxiety #10 tabs 01/27/22 Allergies Allergy/AdvReac Type Severity Reaction Status Date / Time hydromorphone [From Dilaudid] Allergy Unverified 01/08/22 16:27 General Stated Complaint: Anxiety GLADIS: 2 Review of Systems <SHERINE Porter - Last Filed: 01/27/22 11:11> Constitutional Constitutional: Reports as per HPI, Denies chills, Denies fever(s), Reports increased appetite (feels that with the decreasein ETOH and drug use, has been eating more, gai), Denies lethargy, Denies poor appetite, Denies weakness and Reports weight gain Cardiovascular Cardiovascular: Reports as per HPI, Reports chest pain (with increased anxiety), Denies chest pain with activity, Denies irregular heart rhythm, Denies lightheadedness, Denies radiating jaw, neck or arm pain, Denies dyspnea and Denies dyspnea on exertion Respiratory Respiratory: Reports as per HPI, Denies chest congestion, Denies cough, Denies pain on inspiration, Denies pain with cough, Denies dyspnea, Denies dyspnea on exertion and Denies wheezing Gastrointestinal Gastrointestinal: Reports as per HPI, Denies abdominal pain, Denies diarrhea, Denies nausea and Denies vomiting Genitourinary Genitourinary: Denies system reviewed and no additional complaints, except as documented (denies change in urinary habits) Integumentary/Breasts Skin/Breast: Reports as per HPI and Reports wounds (self inflicted cutting to DAMON E) Neurologic Neurologic: Reports as per HPI, Denies behavioral changes, Denies paresthesias and Denies weakness Psychiatric Psychiatric: Denies abnormal sleep pattern, Reports anxiety, Denies behavioral changes, Reports depression, Denies auditory hallucinations, Reports hopelessness, Denies paranoia, Denies visual hallucinations, Denies hallucinations, Denies homicidal ideation and Reports suicidal ideation Allergic/Immunologic Allergic/Immunologic: Denies wheezing PFSH <SHERINE Porter - Last Filed: 01/27/22 11:11> All Active Problems (Updated 01/27/22 @ 11:11 by SHERINE Porter) Dyspnea on exertion (Acute) Noncompliance with medications (Acute) Chest pain (Acute) Acute exacerbation of chronic obstructive pulmonary disease (Acute) Suicidal ideation (Acute) Medical History (Updated 01/27/22 @ 11:11 by SHERINE Porter) Cardiac arrest HTN (hypertension) Hx of hyperlipidemia Morbid obesity Pacemaker Surgical History (Updated 01/06/22 @ 08:20 by Lisa Nieto DO) AICD (automatic cardioverter/defibrillator) present History of coronary artery stent placement History of hernia repair History of right knee joint replacement History of tonsillectomy Social History (Updated 01/06/22 @ 08:55 by Lisa Nieto DO) Smoking/Tobacco Use Status: Current-Occasional Tobacco Type: cigarettes Smoking risk assessment performed?: Yes Alcohol Intake: former Year quit: 2020 Details: Former heavy alcohol use. Substance use type: former substance user, marijuana and prescription drug Do you feel safe at home: Yes Do you feel safe in your relationship?: Yes Exam <SHERINE Porter - Last Filed: 01/27/22 11:11> Const General: cooperative, comfortable, no acute distress, well developed and ill appearing chronically Nutritional Appearance: well nourished and obese Orientation: alert, awake, oriented x3, oriented to person, oriented to place and oriented to time HENCT Head: normal to inspection Ears: hearing grossly normal bilaterally Mouth: moist mucous membranes Eyes General: appearance normal, both eyes and all related structures Pupils: PERRL and normal by confrontation EOM: EOM intact bilaterally Chest Chest: normal inspection of the chest, normal palpation of entire chest wall and no crepitus Resp Effort & Inspection: normal respiratory effort, able to speak in complete sentences and no respiratory distress Auscultation: clear to auscultation bilaterally, no rales, no rhonchi and no wheezes Cardio Rate: regular rate Rhythm: regular rhythm Heart Sounds: S1 normal and S2 normal GI Auscultation: normal bowel sounds Skin General skin exam: no erythema, no fluctuance, no mottling and other (sloughing, appears wet on index/thumb bilat and great toes) Trauma: abrasion (linear abrasions to LUE, no deep wounds, various stages of healing/scaring) Neuro General: patient alert, patient awake and patient oriented x3 Cognition: normal cognition Speech: speech normal Gait: normal gait Motor: muscle tone normal throughout Psych Appearance: grossly normal and well kempt Mental Status: mental status grossly normal Speech and Movement: speech and movement normal Mood: congruent mood Affect: normal affect Attitude: cooperative Thought Process: normal Thought Content: normal Insight: fair Judgment: fair Course <SHERINE Porter - Last Filed: 01/27/22 11:11> Vital Signs Vital signs: Vital Signs Temperature 36.6 C 01/26/22 10:53 Pulse 80 01/26/22 10:53 Respiratory Rate 18 01/26/22 10:53 Blood Pressure 130/67 01/26/22 10:53 Pulse Oximetry 96 01/26/22 10:53 Temperature 36.6 C 01/26/22 10:53 Temperature Source Tympanic 01/26/22 10:53 Pulse 80 01/26/22 10:53 Respiratory Rate 18 01/26/22 10:53 Respiratory Effort 01/26/22 10:57 Respiratory Depth Normal 01/26/22 10:57 Respiratory Pattern Normal 01/26/22 10:57 Blood Pressure 130/67 01/26/22 10:53 Blood Pressure Position Supine 01/26/22 10:53 Pulse Oximetry 96 01/26/22 10:53 Oxygen Delivery Method Room Air 01/26/22 10:53 Oxygen Flow Rate 0 01/26/22 10:53 Pain Level 5 01/26/22 10:53 Lab/Test Results Lab/Test Results: Laboratory Tests Range/Units 01/26/22 11:02 Urine Color (Yellow) Yellow Urine Clarity (Clear) Clear Urine pH (5-8) 6.0 Ur Specific [place] (1.005-1.025) 1.020 Urine Protein (Negative) mg/dL Negative Urine Ketones (Negative) mg/dL Negative Urine Blood (Negative) Trace-intact H Urine Nitrite (Negative) Negative Urine Bilirubin (Negative) Negative Urine Urobilinogen (Up TO 0.2) EU/dL 0.2 Ur Leukocyte Esterase (Negative) Negative Urine RBC (0-2) HPF 3-5 H Urine WBC (0-5) HPF Negative Ur Epithelial Cells (Negative) HPF Rare Urine Crystals (Negative) HPF Negative Urine Bacteria (Negative) HPF Negative Urine Casts (Negative) LPF Negative Urine Mucus (Negative) Negative Ur Culture Indicated? No Urine Glucose (Negative) mg/dL Negative Sign Out <SHERINE Porter - Last Filed: 01/27/22 11:11> Sign Out Data: Sign Out Comment: Care transition to Tyrone Blackman NP. Patient here for suicidal ideation. Patient planning to be voluntarily admitted. Has been self cutting at home. Plans to have a suicidal intent if allowed to leave the department. Last updated by Krystyna Hutchison PA at 01/26/22 17:00 Sign Out Comment: Patient pending voluntary admission for suicidal ideations which include self-harm by slitting wrist. Patient also has significant worsening anxiety. Patient has remained stable throughout emergency department stay. Last updated by Tyrone Blackman NP at 01/26/22 23:03 Sign Out Comment: Patient is a voluntary psychiatric admission who has been calm and cooperative all night. He did ask for some lorazepam early this morning for anxiety which was given. Otherwise no further issues. Last updated by Juan José Roach MD at 01/27/22 07:47
[2022-01-26 11:38] LABS: *AMPHETAMINES SCREEN URINE Negative (Negative); *BARBITURATES SCREEN URINE Negative (Negative); *BENZODIAZEPINES SCREEN URINE Negative (Negative); Cannabinoids THC Negative (Negative); Cocaine Screen,Urine Negative (Negative); METHADONE URINE SCREEN Negative (Negative); OPIATES URINE SCREEN Negative (Negative)
--- NOTE | 2022-01-26 11:38 | NUR.NOTE ---
Nursing Note:this person is sitting 1:1 with pt. provider is meeting with pt.
[2022-01-26 11:40] LABS: Tricyclic Antidepressants Negative (Negative)
[2022-01-26] MEDS: Citalopram 20 MG TAB PO (12:00)
[2022-01-26] MEDS: LORazepam 1 MG TAB PO ×3 (12:00→21:28)
[2022-01-26 12:02] VITALS: BP 111/72; PULSE 64; TEMP 36.5; O2SAT 90
[2022-01-26 12:23] LABS: Source Nasal/Nares
[2022-01-26 12:25] LABS: Abs Immature Grans 0.02 10^3/uL (0.0-0.06); Absolute Basophil Count 0.06 10^3/uL (0.0-0.2); Absolute Lymphocyte Count 2.83 10^3/uL (1.2-3.4); Absolute Monocyte Count 0.84 10^3/uL (0.1-0.8); Absolute Neutrophil Count 5.53 10^3/uL (1.2-6.7); Basophils % 0.6; Eosinophils % 4.1; HCT 41.4 % (40.0-50.0); HGB 13.1 g/dL (13.5-17.5); Immature Grans % 0.2; Lymphocytes % 29.2; MCHC 31.6 % (32.0-36.0); MCV 95 fL (80-95); Monocytes % 8.7; Neutrophils % 57.2; Platelet Count 267 10^3/uL (130-400); RBC 4.36 10^6/uL (4.36-5.78); RDW 13.1 % (11.8-14.1); RDW-SD 45.8 fL; WBC 9.68 10^3/uL (4.4-10.8)
[2022-01-26 12:45] LABS: ALT 18 U/L (16-63); AST 8 U/L (15-37); Albumin 3.4 g/dL (3.4-5.0); Alkaline Phosphatase 89 U/L (46-116); Anion Gap 2.5 mmol/L (3-11); BUN 13 mg/dL (7-18); Bilirubin, Total 0.3 mg/dL (0.2-1.0); CO2 35.5 mmol/L (21.0-32.0); CREATININE 0.9 mg/dL (0.70-1.30); Calcium 9.1 mg/dL (8.5-10.1); Chloride 100 mmol/L (98-107); ETHANOL BLOOD < 3.0 mg/dL (<10); Estimated GFR 102.12 (mL/min/1.73m2); Glucose 91 mg/dL (74-106); Potassium 4.1 mmol/L (3.5-5.1); Sodium 138 mmol/L (136-145); Total Protein 7.3 g/dL (6.4-8.2); Troponin I < 50 ng/L (<or=60)
[2022-01-26 12:52] LABS: Acetaminophen < 2 ug/mL (10-30); Salicylate 3.5 mg/dL (<2.8)
[2022-01-26 12:54] LABS: COVID-19 PCR Negative (Negative)
[2022-01-26 15:13] LABS: Acetaminophen < 2 ug/mL (10-30)
--- NOTE | 2022-01-26 15:29 | PDOC.MHCN_ITS ---
Date of service: 01/26/22 Time of Service: 13:53 PHQ-9 Over the last 2 weeks, how often have you been bothered by any of the following problems? 1. Little interest or pleasure in doing things: nearly every day 2. Feeling down, depressed, or hopeless: nearly every day 3. Trouble falling or staying asleep, or sleeping too much: nearly every day 4. Feeling tired or having little energy: nearly every day 5. Poor appetite or overeating: nearly every day (Overeating) 6. Feeling bad about yourself - or that you are a failure or have let yourself and your family down: nearly every day 7. Trouble concentrating on things, such as reading the newspaper or watching television: nearly every day 8. Moving or speaking so slowly that other people could have noticed? - Or the opposite - being so fidgety or restless that you have been moving around a lot more than usual: nearly every day (Moving slowly) 9. Thoughts that you would be better off or of hurting yourself in some way: nearly every day (Everyday, camryn) Total score: 27 If you checked off any problems, how difficult have these problems made it for you to do your work, take care of things at home, or get along with other people?: very difficult PHQ-9 Results: Positive Source: Developed by Drs. Juan José Jovel, Camryn Romero, Jose Bryant and colleagues, with an educational bertha from [employer]. Suicide Severity Rate CSSRS Have you wished you were or wished you could go to sleep and not wake up?: Yes Have you actually had any thoughts of killing yourself?: Yes CSSRS2 Have you been thinking about how you might do this?: Yes Have you had these thoughts and had some intention of acting on them?: Yes Have you started to work out or worked out the details of how to kill yourself? Do you intend to carry out this plan?: No CSSRS3 Have you ever done anything, started to do anything or prepared to do anything to end your life?: Yes CSSRS4 Was this within the past three months?: Yes Screening Score Total Score: 8 Screening: Positive Mental Health Emergency Note Release [facility] release signed:: Yes Reason for Visit Client presented to [facility] with chief complaint of panic attacks and NSSI. Client currently endorsing SI and states to ED provider that he wants to seek voluntary treatment. In the last 2 weeks has the pt presented for ES prior to today?: No Client Information Client is: Adult Outpatient Non Suicidal Self Injury Current: Yes, Client has superficial cuts on left forearm. History: yes, Superficial cuts on forearms as well as intentional overdoses. Safety Risk/Harm to Self or Others Current Ideation to Harm Self or Others: Yes to self. (Client endorsing fleeting SI, rating intent 8/10 if he were to leave the hospital with plan to slit wrists. ) Intent: yes, has intent. Plan: yes,has a plan. History of suicide attempt: No history of suicide attempt reported Risk: Does risk to harm exist?: yes. Risk: Moderate Risk Asssessment/Mental Status Appearance: Disheveled Attitude: Cooperative Behavior: Unremarkable Speech: Normal Affect: Flat Mood: Stressed, Depressed and Anxious Thought process: Unremarkable Hallucinations: yes, Auditory (Client reports that he continuously hears people calling his name, however there is never anybody there. ) Delusions: No Attention: Unremarkable Perception: Not impaired Orientation: Fully orientated Memory: Intact Insight: Poor Judgement: Poor Neurovegetative Symptoms Sleep: Decrease (Client states that he does not sleep at night due to panic attacks. ) Appetitie: No change Interests: No change Energy: No change Libido: Not applicable Substance Use: Do you use nicotine?: No Have you used substances in the last 7 days?: No Additional Issues: Assaultive/Threatening Behavior: No Medical Concerns: No Client engaged in active self harm w/weapon: No Threatening to run away: No Child reported abuse/neglect: No Voluntarily presenting for services: Yes Domestic violence is a concern: No Extreme Psychosis or extreme behavior is present: No Impression Client is a 51 y/o male that presents to [facility] due to increasing panic attacks and fleeting SI as well as NSSI. Client appears laying down in hospital bed dressed in hospital attire when this residential mortgage underwriter arrives via zoom. Client is cooperative with assessment and answers all of the questions that are asked of him. Client appears to be showing poor insight and judgment as he states that he will not be safe if he is to return home. Client appears to be struggling with depression as well as grief and loss of family members within the past year. Client would benefit from a crisis bed or inpatient treatment to learn coping skills and look at medications. Client would also benefit from case management referral to help with community resources and group therapy referral for socialization. Resources Reosurces reviewed and given:: Crisis Bed Plan/Disposition Recommended Disposition: Hospitalization facilities contacted. Plan: Client will remain at [facility] ED on voluntary status as when safety planning is mentioned by this residential mortgage underwriter client states that he does not feel that he would be safe at home if were to be released. Ref[place] will be [place] to [facility], [facility], and [facility] as well as referrals for a crisis bed. Client will be re-assessed by [facility] ES daily until placement is secured or client is able to be safety planned home.? ? Person reported agreement to plan: Yes Facilities contacted if Applicable [facility] Not accepted, No bed available [facility] Not accepted, No bed available [facility] Not accepted, No bed available, [facility] Not accepted, No bed available Reports/communication Outcome discussed with: ED/Personnel (Verbal passover given to ED provider Krystyna Wagoner) Final Disposition/Discharge Transportation Checklist completed and faxed: No
--- NOTE | 2022-01-26 17:47 | PDOC.CMSAFED ---
- If Service Date Differs Date of service: 01/26/22 Time of Service: 17:47 Care Management Safety Plan Status: Voluntary - Reason for Wait Reason for Wait: Inpatient Admission VOLUNTARY FOR INPATIENT PSYCHIATRIC STABILIZATION. Patient is appropriate in all interactions since arriving at [facility]; Pt has demonstrated appropriate coping and communication skills, has articulated his or her needs and concerns and is fully engaged during staff interactions. Safety plan has been established with patient, and care team, to adhere to patient goals, identify restrictions based on behavioral status, address nutrition, and determine allowed personal belongings, tools for hygiene and personal care. Determine level of activity including ambulation, level of supervision, visitors, and determine privileges based on behaviors and level of engagement by pt. SAFETY PLAN: 1. Will remain on suicide precautions. In Paper Clothes 2. Will remain in room under direct supervision of one-on-one staff at all times provided by [employer]; DAVID, FREIGHT CLAIM INVESTIGATOR catalyst concentration operator. 3. May have paper cups, plates, finger foods as well as a cardboard spoon with which to eat meals. 4. Follow [facility] Management of the Admitted Behavioral Health Patient policy. 5. Comfort bath system, shower permitted with escort at RN discretion. 6. No personal belongings-soft items permitted at RN discretion. 7. Visitors-none at this time. 8. Activities: soft cart items approved per RN discretion. 9. Bathroom privileges with escort in the ED, available in room without limitation on M/S. 10. Phone: via cordless phone at RN discretion. 11. Due to VOLUNTARY status, if patient wishes to leave [facility], staff will contact [facility] Crisis Screener ([phone]) and On-Call Supply And Distribution Manager ([phone]) as soon as possible. In the event of elopement, notify [facility] Police ([phone]). Patient is currently voluntarily at [facility] and seeking inpatient admission when a bed becomes available. [facility] Frontline Director Of Therapy Services will continue seeking placement. Please contact the Commissions Analyst Supply And Distribution Manager ([phone]) and [facility] Director Of Therapy Services ([phone]) for any needed changes in the Safety Plan. Safety plan has been provided to interdepartmental care team.
[2022-01-26 19:43] VITALS: BP 135/97; PULSE 83; RESP 18; TEMP 36.4; O2SAT 95
[2022-01-26] MEDS: traZODone 50 MG TAB PO (21:12)
[2022-01-26] MEDS: Gabapentin 300 MG CAP PO (21:12)
[2022-01-26] MEDS: hydrALAZINE 25 MG TAB 50 MG PO (21:12)
[2022-01-26] MEDS: busPIRone 15 MG TAB 30 MG PO (21:12)
[2022-01-27] MEDS: LORazepam 1 MG TAB PO ×3 (05:34→12:38)
[2022-01-27 08:51] VITALS: BP 127/84; PULSE 85; RESP 20; TEMP 36.5; O2SAT 95
[2022-01-27 13:08] LABS: Source Nasal/Nares
--- NOTE | 2022-01-27 13:25 | PDOC.CMSAFED ---
- If Service Date Differs Date of service: 01/27/22 Time of Service: 13:25 Care Management Safety Plan Status: Voluntary - Reason for Wait Reason for Wait: Inpatient Admission VOLUNTARY FOR INPATIENT PSYCHIATRIC STABILIZATION. Patient is appropriate in all interactions since arriving at [facility]; Pt has demonstrated appropriate coping and communication skills, has articulated his or her needs and concerns and is fully engaged during staff interactions. Safety plan has been established with patient, and care team, to adhere to patient goals, identify restrictions based on behavioral status, address nutrition, and determine allowed personal belongings, tools for hygiene and personal care. Determine level of activity including ambulation, level of supervision, visitors, and determine privileges based on behaviors and level of engagement by pt. SAFETY PLAN: 1. Will remain on suicide precautions. In Paper Clothes 2. Will remain in room under direct supervision of one-on-one staff at all times provided by [employer], LOSS PREVENTION INVESTIGATOR, FOOD BEVERAGE MANAGER edi coordinator. 3. May have paper cups, plates, finger foods as well as a cardboard spoon with which to eat meals. 4. Follow [facility] Management of the Admitted Behavioral Health Patient policy. 5. Comfort bath system, shower permitted with escort at RN discretion. 6. No personal belongings-soft items permitted at RN discretion. 7. Visitors-none at this time. 8. Activities: soft cart items approved per RN discretion. 9. Bathroom privileges with escort in the ED, available in room without limitation on M/S. 10. Phone: via cordless phone at RN discretion. 11. Due to VOLUNTARY status, if patient wishes to leave [facility], staff will contact [facility] Crisis Screener ([phone]) and On-Call Radio Sportscaster ([phone]) as soon as possible. In the event of elopement, notify [facility] Police ([phone]). Patient is currently voluntarily at [facility] and seeking inpatient admission when a bed becomes available. [facility] Frontline Last Inserter will continue seeking placement. Please contact the Audience Coordinator Radio Sportscaster ([phone]) and [facility] Last Inserter ([phone]) for any needed changes in the Safety Plan. Safety plan has been provided to interdepartmental care team.
[2022-01-27 13:44] LABS: COVID-19 PCR Negative (Negative)
--- NOTE | 2022-01-27 14:19 | NUR.NOTE ---
optimization manager in room. Nursing Note:
--- NOTE | 2022-01-27 15:04 | W.EDPROG ---
Date of service: 01/27/22 Time of Service: 15:04 Medical Decision Making Received signout from Dr. Roach on the patient for the day on January 27; see recent notes regarding details of the initial presentation, exam and plan of care. Stable throughout the day for some mild anxiety. He is accepted for placement to local care bed. He will be discharged from the ER. Sign Out Sign Out Data: Sign Out Comment: Care transition to Tyrone Blackman NP. Patient here for suicidal ideation. Patient planning to be voluntarily admitted. Has been self cutting at home. Plans to have a suicidal intent if allowed to leave the department. Last updated by Krystyna Hutchison PA at 01/26/22 17:00 Sign Out Comment: Patient pending voluntary admission for suicidal ideations which include self-harm by slitting wrist. Patient also has significant worsening anxiety. Patient has remained stable throughout emergency department stay. Last updated by Tyrone Blackman NP at 01/26/22 23:03 Sign Out Comment: Patient is a voluntary psychiatric admission who has been calm and cooperative all night. He did ask for some lorazepam early this morning for anxiety which was given. Otherwise no further issues. Last updated by Juan José Roach MD at 01/27/22 07:47 Discharge Plan Disposition Patient Disposition: COMMUNITY CARE FACILITY Condition: Serious Discharge Details Clinical Impression: Suicidal ideation Primary Care Provider: Unknown,Unknown ED Provider: Vance Wood Home Meds and New Rx's Prescriptions: New lorazepam [Ativan] 0.5 mg tablet 0.5 mg PO BID PRN (Reason: anxiety) Qty: 10 0RF Continued isosorbide mononitrate 30 mg Tablet Extended Release 24 Hr 30 mg PO DAILY thiamine HCl (vitamin B1) [Vitamin B-1] 100 mg Tablet 100 mg PO DAILY aspirin 81 mg Tablet,Delayed Release (Dr/Ec) 81 mg PO DAILY multivitamin with iron-mineral Tablet 1 tab PO DAILY gabapentin 300 mg Tablet 300 mg PO TID ranolazine 500 mg Tablet Extended Release 12 Hr 500 mg PO BID atorvastatin 80 mg tablet 80 mg PO DAILY Qty: 30 0RF bumetanide 1 mg tablet 1 mg PO BID Qty: 60 0RF citalopram 20 mg tablet 20 mg PO DAILY Qty: 30 0RF clopidogrel [Plavix] 75 mg tablet 75 mg PO DAILY Qty: 30 0RF folic acid 1 mg tablet 2 mg PO DAILY Qty: 30 0RF buspirone 15 mg tablet 30 mg PO BID Qty: 120 0RF hydralazine 50 mg tablet 50 mg PO TID Qty: 90 0RF losartan 25 mg tablet 25 mg PO DAILY Qty: 30 0RF metoprolol succinate 25 mg tablet extended release 24 hr 75 mg PO DAILY Qty: 90 0RF nicotine 21 mg/24 hr patch 24 hour 1 patch transdermal DAILY Qty: 28 0RF pantoprazole [Protonix] 40 mg tablet,delayed release (DR/EC) 40 mg PO DAILY Qty: 30 0RF trazodone 50 mg tablet 50 mg PO QHS Qty: 30 0RF amiodarone 200 mg Tablet 200 mg PO DAILY lorazepam 1 mg Tablet 1 mg PO BID buprenorphine-naloxone 2-0.5 mg Tablet, Sublingual 1 tab SUBLINGUAL buprenorphine-naloxone 2-0.5 mg Film 1 film sublingual DAILY Discharge Instructions Instructions: Depression (ED) Additional Instructions: Medical work-up in the emergency department included a negative SARS-CoV-2 test. You are medically stable for discharge from the emergency department.
[2022-01-27 15:18] VITALS: BP 127/84; PULSE 85; RESP 20; TEMP 36.5; O2SAT 95
--- NOTE | 2022-01-27 15:20 | CMPROGNOTE_ITS ---
- If Service Date Differs Date of service: 01/27/22 Time of Service: 15:20 Care Management Progress Note Pramod is accepted by the [facility] Care Bed for mood stabilization. He will follow up with [facility] and other community providers upon discharge from the crisis bed. Care Bed staff provide transportation via private vehicle. - Status Status: Voluntary - Reason for Wait Reason for Wait: Community Placement ([facility] Care Bed)
--- NOTE | 2022-01-27 15:20 | PDOC.ERCMPRO ---
- If Service Date Differs Date of service: 01/27/22 Time of Service: 15:20 Care Management Progress Note Pramod is accepted by the [facility] Care Bed for mood stabilization. He will follow up with [facility] and other community providers upon discharge from the crisis bed. Care Bed staff provide transportation via private vehicle. - Status Status: Voluntary - Reason for Wait Reason for Wait: Community Placement ([facility] Care Bed)
--- NOTE | 2022-01-28 17:21 | PDOC.ERCMPRO ---
- If Service Date Differs Date of service: 01/28/22 Time of Service: 17:21 Care Management Progress Note CM received call from Elisa Johnson [facility] RN stating the following: [facility], Trina reported they would be unable to see Pramod in follow up for at least three months. -CM called the center, and was given the same information from Trina. CM provided education central to ED PCP Follow up protocol, and reviewed CM note stating referral was faxed on 01/12/22. Trina transferred CM to MONI Gaitan CM who stated inability to reach Pramod resulted in patient letter and Ray not being added to the chart for tracking. BENJI advised patient had been in the ED and was now at the [facility] Care Bed. Kandy reported she would outreach to Elisa this afternoon with follow up appointment. CM provided Elisa's contact number: . Albuterol inhaler was empty and Pramod needed another. -CM looked in chart to determine inhaler had been ordered by ED provider on previous visit. CM advised unless Pramod was an active patient, it was unlikely refills could be provided. Elisa stated she had outreached to Augustina Lopez for orders from [facility]. - MH Services (Omit if N/A) Current MH Services: Internal [facility] (At Care Bed, uncertain if INSTRUMENT REPAIRER participant)
== END 2022-01-27 15:18 | disposition designated cancer center or children's hospital (05) ==
PROVIDERS: Physician Assistant; Emergency Provider Emergency Medicine
DX: R45.851 Suicidal ideations (principal)
CPT/HCPCS: 36415; 80053; 80307; 87635; 99285; 80320; 80329; 81003; 81015; 83735; 84484; 85025

== ENCOUNTER 2022-02-17 15:34 | Outpatient (REF) | payer MEDICAID, SELFPAY ==
[2022-02-17 20:01] LABS: Abs Immature Grans 0.03 10^3/uL (0.0-0.06); Absolute Basophil Count 0.09 10^3/uL (0.0-0.2); Absolute Eosinophil Count 0.39 10^3/uL (0.0-0.7); Absolute Lymphocyte Count 2.91 10^3/uL (1.2-3.4); Absolute Monocyte Count 1.05 10^3/uL (0.1-0.8); Absolute Neutrophil Count 5.85 10^3/uL (1.2-6.7); Basophils % 0.9; Eosinophils % 3.8; HCT 39.5 % (40.0-50.0); HGB 13.2 g/dL (13.5-17.5); Immature Grans % 0.3; Lymphocytes % 28.2; MCH 30.6 pg (27.0-33.0); MCHC 33.4 % (32.0-36.0); MCV 91 fL (80-95); MPV 9.7 fL (8.0-11.0); Monocytes % 10.2; Neutrophils % 56.6; Platelet Count 304 10^3/uL (130-400); RBC 4.32 10^6/uL (4.36-5.78); RDW-SD 43.9 fL; WBC 10.32 10^3/uL (4.4-10.8)
[2022-02-17 20:32] LABS: ALT 22 U/L (16-63); AST 12 U/L (15-37); Albumin 3.7 g/dL (3.4-5.0); Alkaline Phosphatase 93 U/L (46-116); Anion Gap 4.4 mmol/L (3-11); BUN 14 mg/dL (7-18); Bilirubin, Total 0.3 mg/dL (0.2-1.0); CO2 33.6 mmol/L (21.0-32.0); CREATININE 0.9 mg/dL (0.70-1.30); Calcium 9.2 mg/dL (8.5-10.1); Calculated LDL 63 mg/dL (<100); Chloride 102 mmol/L (98-107); Cholesterol 130 mg/dL (<200); Estimated GFR 102.12 (mL/min/1.73m2); Glucose 95 mg/dL (74-106); HDL Cholesterol 45 mg/dL (40-60); Potassium 3.9 mmol/L (3.5-5.1); Sodium 140 mmol/L (136-145); Total Protein 7.1 g/dL (6.4-8.2); Triglyceride 113 mg/dL (<150)
[2022-02-17 20:36] LABS: Hemoglobin A1C 6.1 % (<5.7)
== END 2022-02-17 15:35 | disposition home or self-care (01) ==
LOC: NCHCN 15:34
PROVIDERS: Visit Provider Nurse Practitioner Family
DX: I10 Essential (primary) hypertension (principal); E78.5 Hyperlipidemia, unspecified; R07.89 Other chest pain; I25.10 Atherosclerotic heart disease of native coronary artery without angina pectoris; E66.01 Morbid (severe) obesity due to excess calories; R73.09 Other abnormal glucose
CPT/HCPCS: 80053; 80061; 83036; 84484; 85025

== ENCOUNTER 2022-02-22 14:49 | Emergency (ER) | payer MEDICAID, SELFPAY ==
[2022-02-22] VITALS (34 sets, daily range): BP systolic 94–140; BP diastolic 45–70; PULSE 70–90; RESP 10–23; TEMP 36.6; O2SAT 91–97
--- NOTE | 2022-02-22 14:45 | RT.EKG_ITS ---
APPROVED REPORT Exam: Resting ECG Reason for Exam: sob Patient Location: E HR:83 bpm ECG Measurements Heart Rate 83 AXIS AK 160 P 45 QRSd 107 QRS 32 QT 416 T 89 QTc 489 Conclusion Sinus rhythm.Q >35mS, II III aVF Nonspecific T abnormalities, lateral leads.
--- NOTE | 2022-02-22 15:00 | DI.RAD_ITS ---
Exam(s) XR PORTABLE CHEST AP EXAM: XR PORTABLE CHEST AP CLINICAL HISTORY: cough/sob. TECHNIQUE: 2D digital imaging was performed. COMPARISON: CR,XR XR PORTABLE CHEST AP from 01/08/2022 FINDINGS: Single AP portable view. Bipolar left subclavian pacemaker with lead tips in right atrium and right ventricle again noted. Heart size is upper normal. The mediastinum is not widened. Lungs are clear. No infiltrates nor obvious pleural effusions. No evidence of pulmonary edema. IMPRESSION: No acute pulmonary findings on this single AP portable view of the chest. Cardiac pacemaker. No pulmonary edema. DATA REPOSITORY: RADIATION DOSE DELIVERED:
--- NOTE | 2022-02-22 15:08 | ED.GENADUL_ITS ---
Discharge Plan Disposition Patient Disposition: STILL A PATIENT Discharge Details Chief Complaint: SOB Primary Care Provider: Unknown,Unknown ED Provider: Bola Shepherd Home Meds and New Rx's Prescriptions: No Action isosorbide mononitrate 30 mg Tablet Extended Release 24 Hr 30 mg PO DAILY thiamine HCl (vitamin B1) [Vitamin B-1] 100 mg Tablet 100 mg PO DAILY aspirin 81 mg Tablet,Delayed Release (Dr/Ec) 81 mg PO DAILY multivitamin with iron-mineral Tablet 1 tab PO DAILY gabapentin 300 mg Tablet 300 mg PO TID ranolazine 500 mg Tablet Extended Release 12 Hr 500 mg PO BID atorvastatin 80 mg tablet 80 mg PO DAILY Qty: 30 0RF bumetanide 1 mg tablet 1 mg PO BID Qty: 60 0RF citalopram 20 mg tablet 20 mg PO DAILY Qty: 30 0RF clopidogrel [Plavix] 75 mg tablet 75 mg PO DAILY Qty: 30 0RF folic acid 1 mg tablet 2 mg PO DAILY Qty: 30 0RF buspirone 15 mg tablet 30 mg PO BID Qty: 120 0RF hydralazine 50 mg tablet 50 mg PO TID Qty: 90 0RF losartan 25 mg tablet 25 mg PO DAILY Qty: 30 0RF metoprolol succinate 25 mg tablet extended release 24 hr 75 mg PO DAILY Qty: 90 0RF nicotine 21 mg/24 hr patch 24 hour 1 patch transdermal DAILY Qty: 28 0RF pantoprazole [Protonix] 40 mg tablet,delayed release (DR/EC) 40 mg PO DAILY Qty: 30 0RF trazodone 50 mg tablet 50 mg PO QHS Qty: 30 0RF amiodarone 200 mg Tablet 200 mg PO DAILY lorazepam 1 mg Tablet 1 mg PO BID buprenorphine-naloxone 2-0.5 mg Tablet, Sublingual 1 tab SUBLINGUAL buprenorphine-naloxone 2-0.5 mg Film 1 film sublingual DAILY lorazepam [Ativan] 0.5 mg tablet 0.5 mg PO BID PRN (Reason: anxiety) Qty: 10 0RF Medical Decision Making 50-year-old gentleman with a past trauma history that includes morbid obesity, pacemaker, defibrillator, hypertension, anxiety, presenting with not feeling well for a few days with multiple complaints. Given his complicated past medical history overall presentation difficult to say whether this is secondary to infectious process, cardiac and/or pulmonary etiology, anxiety, benzodiazepine withdrawal, etc. Plan to obtain a cardiac work-up including D- dimer, provide 3 baby aspirin, 0.5 mg p.o. Ativan, and a Fluvid. I have also asked that we interrogate his pacemaker. This documentation was generated using Open-Plugation system, please disregard any oddities of phrase or misspellings. Medical Records Medical records reviewed: Yes I reviewed the patient's medical records. ECG Data Attestation: I personally reviewed and interpreted this ECG (s) as follows: Interpretation: Sinus rhythm, ventricular rate of 83, nonspecific T wave abnormalities. No STEMI HPI General Mode of arrival: ambulatory . Date/Time Provider Initiated Documentation: 02/22/22 14:51 . Limitations to Documentation: no limitations . Information obtained by: patient . HPI Narrative: The this is a 51-year-old gentleman, smoker, history of PR, pacemaker with defibrillator, multiple stent placement, anxiety, hypertension, presenting to the ER with multiple complaints that include body aches, nasal congestion, feeling warm, shortness of breath, dry cough, chest pain with coughing. Patient reports that he is out of his Ativan and wonders if he is having worsening anxiety and/or panic attacks. He is not vaccinated against COVID. Denies recent illness or trauma. Denies taking his temperature or documented fever, headaches, neck pain, sore throat, abdominal pain, vomiting. Does admit to mild nausea. Denies change in bowel or bladder function. Reports that he does occasionally get some swelling in his legs but they are actually improved at this time. Related Data Home Medications Medication Instructions Recorded Confirmed amiodarone 200 mg tablet 200 mg PO DAILY 01/06/22 01/26/22 aspirin 81 mg tablet,delayed 81 mg PO DAILY 01/06/22 01/26/22 release atorvastatin 80 mg tablet 80 mg PO DAILY #30 tabs 01/06/22 01/26/22 bumetanide 1 mg tablet 1 mg PO BID #60 tabs 01/06/22 01/26/22 buspirone 15 mg tablet 30 mg PO BID #120 tabs 01/06/22 01/26/22 citalopram 20 mg tablet 20 mg PO DAILY #30 tabs 01/06/22 01/26/22 clopidogrel 75 mg tablet (Plavix) 75 mg PO DAILY #30 tabs 01/06/22 01/26/22 folic acid 1 mg tablet 2 mg PO DAILY #30 tabs 01/06/22 01/26/22 gabapentin 300 mg tablet 300 mg PO TID 01/06/22 01/26/22 hydralazine 50 mg tablet 50 mg PO TID #90 tabs 01/06/22 01/26/22 isosorbide mononitrate 30 mg 30 mg PO DAILY 01/06/22 01/26/22 tablet,extended release 24 hr losartan 25 mg tablet 25 mg PO DAILY #30 tabs 01/06/22 01/26/22 metoprolol succinate 25 mg 75 mg PO DAILY #90 tabs 01/06/22 01/26/22 tablet,extended release 24 hr multivitamin with iron-mineral 1 tab PO DAILY 01/06/22 01/26/22 nicotine 21 mg/24 hr daily 1 patch transdermal DAILY #28 ea 01/06/22 01/26/22 transdermal patch pantoprazole 40 mg tablet,delayed 40 mg PO DAILY #30 tabs 01/06/22 01/26/22 release (Protonix) ranolazine 500 mg tablet,extended 500 mg PO BID 01/06/22 01/26/22 release,12 hr thiamine HCl (vitamin B1) 100 mg 100 mg PO DAILY 01/06/22 01/26/22 tablet (Vitamin B-1) trazodone 50 mg tablet 50 mg PO QHS #30 tabs 01/06/22 01/26/22 lorazepam 1 mg tablet 1 mg PO BID 01/08/22 01/26/22 buprenorphine 2 mg-naloxone 0.5 mg 1 film sublingual DAILY 01/26/22 01/26/22 sublingual film buprenorphine 2 mg-naloxone 0.5 mg 1 tab sublingual 01/26/22 sublingual tablet lorazepam 0.5 mg tablet (Ativan) 0.5 mg PO BID PRN anxiety #10 tabs 01/27/22 Previous Rx's Medication Instructions Recorded atorvastatin 80 mg tablet 80 mg PO DAILY #30 tabs 01/06/22 bumetanide 1 mg tablet 1 mg PO BID #60 tabs 01/06/22 buspirone 15 mg tablet 30 mg PO BID #120 tabs 01/06/22 citalopram 20 mg tablet 20 mg PO DAILY #30 tabs 01/06/22 clopidogrel 75 mg tablet (Plavix) 75 mg PO DAILY #30 tabs 01/06/22 folic acid 1 mg tablet 2 mg PO DAILY #30 tabs 01/06/22 hydralazine 50 mg tablet 50 mg PO TID #90 tabs 01/06/22 losartan 25 mg tablet 25 mg PO DAILY #30 tabs 01/06/22 metoprolol succinate 25 mg 75 mg PO DAILY #90 tabs 01/06/22 tablet,extended release 24 hr nicotine 21 mg/24 hr daily 1 patch transdermal DAILY #28 ea 01/06/22 transdermal patch pantoprazole 40 mg tablet,delayed 40 mg PO DAILY #30 tabs 01/06/22 release (Protonix) trazodone 50 mg tablet 50 mg PO QHS #30 tabs 01/06/22 lorazepam 0.5 mg tablet (Ativan) 0.5 mg PO BID PRN anxiety #10 tabs 01/27/22 Allergies Allergy/AdvReac Type Severity Reaction Status Date / Time hydromorphone [From Dilaudid] Allergy Unverified 01/08/22 16:27 General Stated Complaint: SOB GLADIS: 2 Review of Systems Constitutional Constitutional: Denies fatigue, Reports fever(s) and Reports headache(s) Eyes Eyes: Denies change in vision ENT Ears, Nose, Mouth, and Throat: Reports headache(s) and Denies neck pain Cardiovascular Cardiovascular: Reports chest pain and Reports dyspnea Respiratory Respiratory: Reports cough and Reports dyspnea Gastrointestinal Gastrointestinal: Denies abdominal pain, Reports nausea and Denies vomiting Genitourinary Genitourinary: Denies dysuria Musculoskeletal Musculoskeletal: Reports myalgias, Denies neck pain, Denies numbness and Denies tingling Integumentary/Breasts Skin/Breast: Denies rash Neurologic Neurologic: Reports headache(s), Denies numbness and Denies tingling Endocrine Endocrine: Denies fatigue Hematologic/Lymphatic Hematologic/Lymphatic: Reports easy bleeding and Reports easy bruising PFSH All Active Problems Suicidal ideation (Acute) Medical History Cardiac arrest HTN (hypertension) Hx of hyperlipidemia Morbid obesity Pacemaker Surgical History AICD (automatic cardioverter/defibrillator) present History of coronary artery stent placement History of hernia repair History of right knee joint replacement History of tonsillectomy Social History Smoking/Tobacco Use Status: Current-Occasional Tobacco Type: cigarettes Smoking risk assessment performed?: Yes Alcohol Intake: former Year quit: 2020 Details: Former heavy alcohol use. Substance use type: former substance user, marijuana and prescription drug Do you feel safe at home: Yes Do you feel safe in your relationship?: Yes Exam Const General: cooperative, comfortable and anxious Orientation: alert, awake and oriented x3 HENMT Head: normal to inspection, normocephalic and atraumatic Face and sinus: normal facial exam Mouth: moist mucous membranes Eyes General: appearance normal, both eyes and all related structures Conjunctivae: conjunctivae normal Neck Neck: normal visual inspection, full ROM, no meningeal signs, trachea midline and supple Resp Effort & Inspection: normal respiratory effort and able to speak in complete sentences Auscultation: diminished lung sounds bilaterally in the lower lung [place] Cardio Rate: regular rate Rhythm: regular rhythm GI Inspection: obesity Palpation: soft, not firm, no guarding and nontender Back/Spine/Pelvis Back: No back tenderness Skin General skin exam: no rashes or lesions noted Neuro General: patient alert, patient awake, moves all extremities and no focal motor deficits Cognition: normal cognition Speech: speech normal Gait: normal gait Motor: muscle tone normal throughout Sensory Exam: no sensory deficits noted Extrem General: normal to inspection, full ROM, capillary refill normal, no pedal edema and no calf tenderness Psych Appearance: grossly normal Mental Status: mental status grossly normal Course Vital Signs Vital signs: Vital Signs Temperature 36.6 C 02/22/22 14:52 Pulse 85 02/22/22 14:52 Respiratory Rate 20 02/22/22 14:52 Blood Pressure 140/70 02/22/22 14:52 Pulse Oximetry 97 02/22/22 14:52 Temperature 36.6 C 02/22/22 14:52 Temperature Source Oral 02/22/22 14:52 Pulse 85 02/22/22 14:52 Respiratory Rate 20 02/22/22 14:52 Blood Pressure 140/70 02/22/22 14:52 Pulse Oximetry 97 02/22/22 14:52 Oxygen Delivery Method Room Air 02/22/22 14:52 Oxygen Flow Rate 0 02/22/22 14:52 Pain Level 7 02/22/22 14:52
--- NOTE | 2022-02-22 15:49 | W.EDPROG ---
Date of service: 02/22/22 Time of Service: 15:49 Medical Decision Making Care assumed from provider (SHERINE Tucker) Please see their initial HPI, PE, and documentation. Discussed patient details and case and pending workup and disposition. Patient is hemodynamically stable, and alert and oriented. At the time of sign out workup is pending including labs and FLUVID swabs. CBC shows slight leukocytosis of white blood cell count 11.28, neutrophils 7.30, D-dimer is elevated at 721 which is over the age-adjusted D-dimer, sodium testing within normal limits, carbon dioxide is 35.2, anion gap 2.8 glucose 115, negative COVID flu and RSV. I will consider and probably do a CT chest to rule out PE. Initial troponin within normal limits. After patient reevaluation, he is still complaining of anxiety and headache. I did discuss his return of his lab work with him. We will go ahead with the CT chest rule out PE. CT is negative for PE and no acute abnormality in the chest. Will wait for serial troponin at approximately 6 PM. Patient has received an additional 0.5 of lorazepam 500 cc normal saline and Tylenol for headache. Due to differential diagnosis includes benzo withdrawal, anxiety, coronary artery disease, PE CT chest negative for PE, repeat troponin less than 50 within normal limits. Patient to be discharged with probable benzo withdrawal and anxiety. Patient was given 2 tablets of 0.5 mg of lorazepam here in the department to go. Discussed follow-up care and strict return instructions, verbalized understanding. Medical Records Medical records reviewed: Yes I reviewed the patient's medical records. Imaging Data Radiologic Study: Imaging: CT Scan Radiologist's impression: FINDINGS: Tubes, catheters and devices: Pacemaker wire noted. Left-sided pacemaker in place. Pulmonary arteries: Normal. No pulmonary emboli. Aorta: Unremarkable. No aortic aneurysm. No aortic dissection. Lungs: Unremarkable. No consolidation. No masses. Pleural spaces: Unremarkable. No pneumothorax. No pleural effusion. Heart: Coronary artery calcifications/stents identified. Lymph nodes: Unremarkable. No enlarged lymph nodes. Bones/joints: Unremarkable. No acute fracture. Soft tissues: Unremarkable. IMPRESSION: No evidence for acute abnormality in the chest. No pulmonary embolus. Thank you for allowing us to participate in the care of your patient. Dictated and Authenticated by: Ghazal Paulson MD Lab Data Lab results reviewed: Yes I reviewed the patient's lab results. Labs: Laboratory Tests Range/Units 02/22/22 02/22/22 02/22/22 15:25 15:42 15:42 WBC (4.4-10.8) 10^3/uL RBC (4.36-5.78) 10^6/uL Hgb (13.5-17.5) g/dL Hct (40.0-50.0) % MCV (80-95) fL MCH (27.0-33.0) pg MCHC (32.0-36.0) % RDW (11.8-14.1) % Plt Count (130-400) 10^3/uL MPV (8.0-11.0) fL Immature Gran % Neutrophils % Lymphocytes % Monocytes % Eosinophils % Basophils % Nucleated RBC % (0.0-0.3) % Absolute Neutrophils (1.2-6.7) 10^3/uL Absolute Lymphocytes (1.2-3.4) 10^3/uL Absolute Monocytes (0.1-0.8) 10^3/uL Absolute Eosinophils (0.0-0.7) 10^3/uL Absolute Basophils (0.0-0.2) 10^3/uL PT (9.3-11.0) sec 10.5 INR (0.9-1.1) 1.0 APTT (21.0-27.5) sec 25.2 D-Dimer (<500) ng/mlFEU 721 H Sodium (136-145) mmol/L Potassium (3.5-5.1) mmol/L Chloride (98-107) mmol/L Carbon Dioxide (21.0-32.0) mmol/L Anion Gap (3-11) mmol/L BUN (7-18) mg/dL Creatinine (0.70-1.30) mg/dL Est GFR (CKD-EPI 2020) (mL/min/1.73m2) Glucose (74-106) mg/dL Calcium (8.5-10.1) mg/dL Magnesium (1.8-2.4) mg/dL 1.9 Total Bilirubin (0.2-1.0) mg/dL AST (15-37) U/L ALT (16-63) U/L Alkaline Phosphatase (46-116) U/L Troponin I (<or=60) ng/L < 50 NT-Pro-B Natriuret Pep (<300) pg/mL 286 Total Protein (6.4-8.2) g/dL Albumin (3.4-5.0) g/dL COVID-19 Source Nasopharynx SARS-CoV-2 (PCR) (Negative) Negative Influenza Type A (PCR) (Negative) Negative Influenza Type B (PCR) (Negative) Negative RSV (PCR) (Negative) Negative Range/Units 02/22/22 02/22/22 15:42 15:42 WBC (4.4-10.8) 10^3/uL 11.28 H RBC (4.36-5.78) 10^6/uL 5.23 Hgb (13.5-17.5) g/dL 15.7 Hct (40.0-50.0) % 47.3 MCV (80-95) fL 90 MCH (27.0-33.0) pg 30.0 MCHC (32.0-36.0) % 33.2 RDW (11.8-14.1) % 13.0 Plt Count (130-400) 10^3/uL 335 MPV (8.0-11.0) fL 8.8 Immature Gran % 0.3 Neutrophils % 64.7 Lymphocytes % 23.8 Monocytes % 7.7 Eosinophils % 2.6 Basophils % 0.9 Nucleated RBC % (0.0-0.3) % 0.0 Absolute Neutrophils (1.2-6.7) 10^3/uL 7.30 H Absolute Lymphocytes (1.2-3.4) 10^3/uL 2.68 Absolute Monocytes (0.1-0.8) 10^3/uL 0.87 H Absolute Eosinophils (0.0-0.7) 10^3/uL 0.29 Absolute Basophils (0.0-0.2) 10^3/uL 0.10 PT (9.3-11.0) sec INR (0.9-1.1) APTT (21.0-27.5) sec D-Dimer (<500) ng/mlFEU Sodium (136-145) mmol/L 138 Potassium (3.5-5.1) mmol/L 4.7 Chloride (98-107) mmol/L 100 Carbon Dioxide (21.0-32.0) mmol/L 35.2 H Anion Gap (3-11) mmol/L 2.8 L BUN (7-18) mg/dL 14 Creatinine (0.70-1.30) mg/dL 0.8 Est GFR (CKD-EPI 2020) (mL/min/1.73m2) 105.82 Glucose (74-106) mg/dL 115 H Calcium (8.5-10.1) mg/dL 9.7 Magnesium (1.8-2.4) mg/dL Total Bilirubin (0.2-1.0) mg/dL 0.5 AST (15-37) U/L 18 ALT (16-63) U/L 21 Alkaline Phosphatase (46-116) U/L 115 Troponin I (<or=60) ng/L NT-Pro-B Natriuret Pep (<300) pg/mL Total Protein (6.4-8.2) g/dL 8.6 H Albumin (3.4-5.0) g/dL 4.1 COVID-19 Source SARS-CoV-2 (PCR) (Negative) Influenza Type A (PCR) (Negative) Influenza Type B (PCR) (Negative) RSV (PCR) (Negative) Sign Out Sign Out Data: Sign Out Comment: Patient presents simply not feeling well for 4 days, body aches, cough, chest pain with coughing, out of Ativan for 4 days. Presentation is unclear whether this may be an infectious process, cardiac and/or pulmonary etiology, anxiety/panic attack with benzodiazepine withdrawal. Have initiated a cardiac work-up, Fluvid, given 3 baby aspirin and 0.5 p.o. Ativan. Last updated by Bola Shepherd PA at 02/22/22 15:47 Discharge Plan Disposition Patient Disposition: HOME Condition: Stable Discharge Details Clinical Impression: Anxiety, Acute dyspnea Primary Care Provider: Unknown,Unknown ED Provider: Jennifer Waldron Home Meds and New Rx's Prescriptions: Continued isosorbide mononitrate 30 mg Tablet Extended Release 24 Hr 30 mg PO DAILY thiamine HCl (vitamin B1) [Vitamin B-1] 100 mg Tablet 100 mg PO DAILY aspirin 81 mg Tablet,Delayed Release (Dr/Ec) 81 mg PO DAILY multivitamin with iron-mineral Tablet 1 tab PO DAILY gabapentin 300 mg Tablet 300 mg PO TID ranolazine 500 mg Tablet Extended Release 12 Hr 500 mg PO BID atorvastatin 80 mg tablet 80 mg PO DAILY Qty: 30 0RF bumetanide 1 mg tablet 1 mg PO BID Qty: 60 0RF citalopram 20 mg tablet 20 mg PO DAILY Qty: 30 0RF clopidogrel [Plavix] 75 mg tablet 75 mg PO DAILY Qty: 30 0RF folic acid 1 mg tablet 2 mg PO DAILY Qty: 30 0RF buspirone 15 mg tablet 30 mg PO BID Qty: 120 0RF hydralazine 50 mg tablet 50 mg PO TID Qty: 90 0RF losartan 25 mg tablet 25 mg PO DAILY Qty: 30 0RF metoprolol succinate 25 mg tablet extended release 24 hr 75 mg PO DAILY Qty: 90 0RF nicotine 21 mg/24 hr patch 24 hour 1 patch transdermal DAILY Qty: 28 0RF pantoprazole [Protonix] 40 mg tablet,delayed release (DR/EC) 40 mg PO DAILY Qty: 30 0RF trazodone 50 mg tablet 50 mg PO QHS Qty: 30 0RF amiodarone 200 mg Tablet 200 mg PO DAILY lorazepam 1 mg Tablet 1 mg PO BID buprenorphine-naloxone 2-0.5 mg Tablet, Sublingual 1 tab SUBLINGUAL buprenorphine-naloxone 2-0.5 mg Film 1 film sublingual DAILY lorazepam [Ativan] 0.5 mg tablet 0.5 mg PO BID PRN (Reason: anxiety) Qty: 10 0RF Discharge Instructions Instructions: Anxiety (ED) Additional Instructions: At this time you have had a negative work-up for heart and lungs. I do feel that this is has been related to the lorazepam withdrawal. You have been given 2 tablets here in the department to go until you can get your prescription filled. Please take them twice daily as needed. Follow up with primary care provider in 3-5 days. Return to ED sooner if any worsening or concerns. Increase oral fluids.
[2022-02-22 15:50] LABS: Abs Immature Grans 0.03 10^3/uL (0.0-0.06); Absolute Eosinophil Count 0.29 10^3/uL (0.0-0.7); Absolute Lymphocyte Count 2.68 10^3/uL (1.2-3.4); Absolute Monocyte Count 0.87 10^3/uL (0.1-0.8); Basophils % 0.9; Eosinophils % 2.6; HCT 47.3 % (40.0-50.0); HGB 15.7 g/dL (13.5-17.5); Immature Grans % 0.3; Lymphocytes % 23.8; MCHC 33.2 % (32.0-36.0); MCV 90 fL (80-95); MPV 8.8 fL (8.0-11.0); Monocytes % 7.7; Neutrophils % 64.7; Platelet Count 335 10^3/uL (130-400); RBC 5.23 10^6/uL (4.36-5.78); RDW-SD 43.1 fL; WBC 11.28 10^3/uL (4.4-10.8)
[2022-02-22] MEDS: Aspirin 81 MG CHEW 243 MG CH (15:53)
[2022-02-22] MEDS: LORazepam 0.5 MG TAB PO ×2 (15:53→18:04)
[2022-02-22 16:10] LABS: PTT Activated 25.2 sec (21.0-27.5); Prothrombin Time 10.5 sec (9.3-11.0)
[2022-02-22 16:11] LABS: ALT 21 U/L (16-63); AST 18 U/L (15-37); Albumin 4.1 g/dL (3.4-5.0); Alkaline Phosphatase 115 U/L (46-116); Anion Gap 2.8 mmol/L (3-11); BUN 14 mg/dL (7-18); Bilirubin, Total 0.5 mg/dL (0.2-1.0); CO2 35.2 mmol/L (21.0-32.0); CREATININE 0.8 mg/dL (0.70-1.30); Calcium 9.7 mg/dL (8.5-10.1); Chloride 100 mmol/L (98-107); Estimated GFR 105.82 (mL/min/1.73m2); Glucose 115 mg/dL (74-106); Potassium 4.7 mmol/L (3.5-5.1); Sodium 138 mmol/L (136-145); Total Protein 8.6 g/dL (6.4-8.2)
[2022-02-22 16:13] LABS: COVID-19 PCR Negative (Negative); Influenza A PCR Negative (Negative); Influenza B PCR Negative (Negative); RSV PCR Negative (Negative)
[2022-02-22 16:17] LABS: Magnesium 1.9 mg/dL (1.8-2.4); NT-proBNP 286 pg/mL (<300); Troponin I < 50 ng/L (<or=60)
--- NOTE | 2022-02-22 16:17 | DI.VRAD_ITS ---
PROCEDURE INFORMATION: Exam: XR Chest Exam date and time: 02/22/2022 3:41 PM Age: 51 years old Clinical indication: Cough and shortness of breath; Patient HX: Cough/sob TECHNIQUE: Imaging protocol: Radiologic exam of the chest. Views: 1 view. Other technique: Portable exam. COMPARISON: CR XR PORTABLE CHEST AP 01/08/2022 5:26 PM FINDINGS: Tubes, catheters and devices: Left-sided pacemaker in place. Lungs: Unremarkable. No consolidation. Pleural spaces: Unremarkable. No pleural effusion. No pneumothorax. Heart/Mediastinum: No change mild cardiomegaly. Bones/joints: Unremarkable. IMPRESSION: No evidence for acute abnormality in the chest. Dictated and Authenticated by: Ghazal Paulson MD. Ordering:PATRICIA Plaza MD
[2022-02-22 16:19] LABS: Source Nasopharynx
[2022-02-22 16:45] LABS: D-Dimer 721 ng/mlFEU (<500)
--- NOTE | 2022-02-22 17:00 | DI.CT_ITS ---
Exam(s) CT CHEST PE CTA EXAM: CT CHEST PE CTA CLINICAL HISTORY: Elevated Ddimer, SOB, Anxiety, R/O PE. TECHNIQUE: Imaging Protocol: Axial CT angiography was performed with multi-slice acquisition and mu lti-planar reconstructions as well as axial, coronal and sagittal MIP reconstructions. CONTRAST MATERIAL: Intravenous: Omnipaque 350 Contrast volume:100 ml COMPARISON: CT CT CHEST PE CTA from 01/06/2022 CR,XR XR PORTABLE CHEST AP from 02/22/2022 FINDINGS: Pulmonary Arteries: No evidence of filling defect to suggest pulmonary emboli. Tracheobronchial tree: Patent where visualized. Mediastinum and [place]raine: No dominant adenopathy or fluid collection. Pulmonary parenchyma: No consolidation or dominant measurable mass. Pleura: No effusion or pneumothorax. Heart: The heart is not dilated. coronary artery stents and calcifications are seen. Aorta: Thoracic aorta non-dilated. No aneurysm. No dissection. Upper abdomen: Lower enlarged and shows fatty infiltration. Pancreas somewhat atrophic. Bones: prominent osteophytes. Tubes, Catheters, and Lines: Pacemaker. IMPRESSION: No evidence of pulmonary embolism or other acute abnormality.. RADIATION DOSE DELIVERED: 784.77mGy.cm Total DLP DATA REPOSITORY: All CT scans at this facility are submitted to the National Radiology Data Registry (NRDR) Dose Index Registry (DIR) with the [employer] (A[employer]). RADIATION OPTIMIZATION: All CT scans at this facility use at least one of these dose optimization te chniques: automated exposure control; mA and/or kV adjustment per patient size (includes targeted exa ms where dose is matched to clinical indication); or iterative reconstruction.
[2022-02-22] MEDS: Omnipaque 350 MG/ML 100 ML BTL IJ (17:15)
--- NOTE | 2022-02-22 17:40 | DI.VRAD_ITS ---
PROCEDURE INFORMATION: Exam: CTA Chest With Contrast Exam date and time: 02/22/2022 5:15 PM Age: 51 years old Clinical indication: Other: SOB, elevated d dimer, anxiety TECHNIQUE: Imaging protocol: Computed tomographic angiography of the chest with contrast. 3D rendering (Not supervised by radiologist): MIP and/or 3D reconstructed images were created by the technologist. Radiation optimization: All CT scans at this facility use at least one of these dose optimization techniques: automated exposure control; mA and/or kV adjustment per patient size (includes targeted exams where dose is matched to clinical indication); or iterative reconstruction. Contrast material: OMNIPAQUE 350; Contrast volume: 100 ml; Contrast route: INTRAVENOUS (IV); COMPARISON: CT CHEST PE CTA 01/06/2022 1:38 PM FINDINGS: Tubes, catheters and devices: Pacemaker wire noted. Left-sided pacemaker in place. Pulmonary arteries: Normal. No pulmonary emboli. Aorta: Unremarkable. No aortic aneurysm. No aortic dissection. Lungs: Unremarkable. No consolidation. No masses. Pleural spaces: Unremarkable. No pneumothorax. No pleural effusion. Heart: Coronary artery calcifications/stents identified. Lymph nodes: Unremarkable. No enlarged lymph nodes. Bones/joints: Unremarkable. No acute fracture. Soft tissues: Unremarkable. IMPRESSION: No evidence for acute abnormality in the chest. No pulmonary embolus. Dictated and Authenticated by: Ghazal Paulson MD. Ordering:DEVANTE Rodriguez MD
[2022-02-22] MEDS: Acetaminophen 325 MG TAB 650 MG PO (18:04)
[2022-02-22] MEDS: Normal Saline 250 ML 500 ML IV (18:04)
[2022-02-22 18:22] LABS: Troponin I < 50 ng/L (<or=60)
[2022-02-22] MEDS: LORazepam 0.5 MG TAB 1 MG PO (18:44)
== END 2022-02-22 18:44 | disposition home or self-care (01) ==
PROVIDERS: Physician Assistant; Emergency Provider Registered Nurse Emergency
DX: F41.9 Anxiety disorder, unspecified (principal); R06.00 Dyspnea, unspecified; R79.89 Other specified abnormal findings of blood chemistry; D72.829 Elevated white blood cell count, unspecified; I10 Essential (primary) hypertension; I25.2 Old myocardial infarction; F17.210 Nicotine dependence, cigarettes, uncomplicated; Z28.310 Unvaccinated for COVID-19; Z20.822 Contact with and (suspected) exposure to COVID-19; Z95.0 Presence of cardiac pacemaker
CPT/HCPCS: 71275; 80053; 87637; 93005; 99285; 71045; 83735; 83880; 84484; 85025; 85379; 85610; 85730; 93010; J3490

== ENCOUNTER 2022-03-31 08:55 | Outpatient (CLI) | payer MEDICAID, SELFPAY ==
--- NOTE | 2022-03-31 08:45 | RT.EKG_ITS ---
APPROVED REPORT Exam: Resting ECG Reason for Exam: afib Patient Location: O HR:82 bpm ECG Measurements Heart Rate 82 AXIS HI 108 P 51 QRSd 109 QRS 31 QT 398 T 109 QTc 465 Conclusion Sinus rhythm...normal P axis, V-rate 50- 99 Short HI interval...HI <110mS Inferior infarct, old...Q >35mS, II III aVF Lateral leads are also involved...lat Q or ST-T abnormalities Minor nondiagnostic ST abnormalities
== END 2022-03-31 08:56 | disposition home or self-care (01) ==
LOC: DI.CARD 08:55
PROVIDERS: Visit Provider Internal Medicine Cardiovascular Disease
DX: I46.9 Cardiac arrest, cause unspecified (principal); I48.91 Unspecified atrial fibrillation; R94.31 Abnormal electrocardiogram [ECG] [EKG]
CPT/HCPCS: 93010

== ENCOUNTER 2022-04-20 09:06 | Inpatient (IN) | payer MEDICAID, SELFPAY ==
[2022-04-20] VITALS (94 sets, daily range): BP systolic 112–158; BP diastolic 47–91; PULSE 63–89; RESP 9–23; TEMP 36.7–37.2; O2SAT 79–98
--- NOTE | 2022-04-20 09:15 | RT.EKG_ITS ---
APPROVED REPORT Exam: Resting ECG Reason for Exam: sob Patient Location: E HR:81 bpm ECG Measurements Heart Rate 81 AXIS MA 165 P 43 QRSd 107 QRS 35 QT 403 T 97 QTc 470 Conclusion Sinus rhythm...normal P axis, V-rate 60- 99 Probable anterolateral infarct, old...Q>35mS, abnrm ST-T, V2-V6,I,aVL st dep I, aVL unchangeed from prior
--- NOTE | 2022-04-20 09:37 | DI.RAD_ITS ---
Exam(s) XR CHEST 1V IN DI DEPT EXAM: XR CHEST 1V IN DI DEPT CLINICAL HISTORY: cough, sob TECHNIQUE: 2D digital imaging was performed. COMPARISON: CT CT CHEST PE CTA from 02/22/2022 CR,XR XR PORTABLE CHEST AP from 02/22/2022 FINDINGS: Exam is limited by patient body habitus and under penetration. LUNGS: No focal infiltrate visible.. No pleural abnormality seen. HEART: Within normal limits of size for projection. Pacemaker. AORTA: Normal diameter. BONES: Unremarkable for age. Soft tissues: Unremarkable. IMPRESSION: Limited exam. No acute findings. DATA REPOSITORY: RADIATION DOSE DELIVERED:
--- NOTE | 2022-04-20 09:41 | ED.GENADUL_ITS ---
Discharge Plan Disposition Patient Disposition: Admit to [facility] Condition: Serious Discharge Details Clinical Impression: Gabapentin overdose, Somnolence, Hypercarbia, Hypoxia Admit Date/Time: 04/20/22 12:48 Admit Provider: Andriy Collier Attending Provider: Andriy Collier Primary Care Provider: TIKI DOMINGUEZ ED Provider: Gino Dodd Discharge Data Discharge Date/Time-TO BE ENTERED AT DEPARTURE: 04/20/22 16:17 Medical Decision Making 945 --51-year-old male with multiple medical problems including history of ischemic cardiomyopathy, COPD, chronic pain, opioid use disorder, here with somnolence, fatigue and frequent falls. Patient intentionally increased dosing of gabapentin to 1800 mg a day over the past week. Patient is hypoxic and requiring nasal cannula oxygen. Patient is hemodynamically stable. Suspect gabapentin overdose combined with likely acute exacerbation of CHF. Supplemental oxygen being provided. Will check VBG. EKG was reviewed and interpreted by me, please see report, ST depressions are noted lead I and aVL, no STEMI. I compared to prior EKG from 03/31/[address] depressions at that time in same leads as well. Consider ACS and CHF. Plan to check troponin and trend and will check BNP. Also obtain chest x-ray, COVID/flu testing and assess for infectious etiologies. 1155 --labs reviewed and leukocytosis noted. Influenza/COVID/RSV negative. VBG PCO2 was 71. Chest x-ray interpreted by radiology and noted be limited but no acute cardiopulmonary disease noted. Respiratory therapy was consulted and patient initiated on BiPAP. --CT head was interpreted by radiology: No acute intracranial process. Plan for hospitalization for continued treatment of suspected gabapentin overdose. Urinalysis pending. -- I spoke with Dr. Collier, discussed ED presentation course, he will admit the patient Lab Data Lab results reviewed: Yes I reviewed the patient's lab results. Labs: Laboratory Tests Range/Units 04/20/22 04/20/22 04/20/22 09:59 10:15 10:15 WBC (4.4-10.8) 10^3/uL 14.94 H RBC (4.36-5.78) 10^6/uL 4.18 L Hgb (13.5-17.5) g/dL 12.6 L Hct (40.0-50.0) % 39.2 L MCV (80-95) fL 94 MCH (27.0-33.0) pg 30.1 MCHC (32.0-36.0) % 32.1 RDW (11.8-14.1) % 14.0 Plt Count (130-400) 10^3/uL 307 MPV (8.0-11.0) fL 8.7 Immature Gran % 0.5 Neutrophils % 78.9 Lymphocytes % 11.3 Monocytes % 7.1 Eosinophils % 1.7 Basophils % 0.5 Nucleated RBC % (0.0-0.3) % 0.0 Absolute Neutrophils (1.2-6.7) 10^3/uL 11.79 H Absolute Lymphocytes (1.2-3.4) 10^3/uL 1.69 Absolute Monocytes (0.1-0.8) 10^3/uL 1.06 H Absolute Eosinophils (0.0-0.7) 10^3/uL 0.25 Absolute Basophils (0.0-0.2) 10^3/uL 0.07 VBG pH (7.31-7.41) VBG pCO2 (41-51) mmHg VBG pO2 mmHg VBG HCO3 (23-28) mmol/L VBG Total CO2 (24-29) mmol/L VBG O2 Saturation % VBG Base Excess (-2-3) mmol/L Sodium (136-145) mmol/L 140 Potassium (3.5-5.1) mmol/L 4.2 Chloride (98-107) mmol/L 100 Carbon Dioxide (21.0-32.0) mmol/L 38.7 H Anion Gap (3-11) mmol/L 1.3 L BUN (7-18) mg/dL 10 Creatinine (0.70-1.30) mg/dL 0.8 Est GFR (CKD-EPI 2020) (mL/min/1.73m2) 105.82 Glucose (74-106) mg/dL 123 H Calcium (8.5-10.1) mg/dL 8.6 Magnesium (1.8-2.4) mg/dL 2.1 Total Bilirubin (0.2-1.0) mg/dL 0.4 AST (15-37) U/L 22 ALT (16-63) U/L 21 Alkaline Phosphatase (46-116) U/L 88 Troponin I (<or=60) ng/L 78 H* NT-Pro-B Natriuret Pep (<300) pg/mL 803 H Total Protein (6.4-8.2) g/dL 7.1 Albumin (3.4-5.0) g/dL 3.2 L TSH (0.36-3.74) uIU/mL 0.69 COVID-19 Source Nasopharynx SARS-CoV-2 (PCR) (Negative) Negative Influenza Type A (PCR) (Negative) Negative Influenza Type B (PCR) (Negative) Negative RSV (PCR) (Negative) Negative Range/Units 04/20/22 10:15 WBC (4.4-10.8) 10^3/uL RBC (4.36-5.78) 10^6/uL Hgb (13.5-17.5) g/dL Hct (40.0-50.0) % MCV (80-95) fL MCH (27.0-33.0) pg MCHC (32.0-36.0) % RDW (11.8-14.1) % Plt Count (130-400) 10^3/uL MPV (8.0-11.0) fL Immature Gran % Neutrophils % Lymphocytes % Monocytes % Eosinophils % Basophils % Nucleated RBC % (0.0-0.3) % Absolute Neutrophils (1.2-6.7) 10^3/uL Absolute Lymphocytes (1.2-3.4) 10^3/uL Absolute Monocytes (0.1-0.8) 10^3/uL Absolute Eosinophils (0.0-0.7) 10^3/uL Absolute Basophils (0.0-0.2) 10^3/uL VBG pH (7.31-7.41) 7.34 VBG pCO2 (41-51) mmHg 71 H* VBG pO2 mmHg 66 VBG HCO3 (23-28) mmol/L 38 H VBG Total CO2 (24-29) mmol/L 35 H VBG O2 Saturation % 94 VBG Base Excess (-2-3) mmol/L 13 H Sodium (136-145) mmol/L Potassium (3.5-5.1) mmol/L Chloride (98-107) mmol/L Carbon Dioxide (21.0-32.0) mmol/L Anion Gap (3-11) mmol/L BUN (7-18) mg/dL Creatinine (0.70-1.30) mg/dL Est GFR (CKD-EPI 2020) (mL/min/1.73m2) Glucose (74-106) mg/dL Calcium (8.5-10.1) mg/dL Magnesium (1.8-2.4) mg/dL Total Bilirubin (0.2-1.0) mg/dL AST (15-37) U/L ALT (16-63) U/L Alkaline Phosphatase (46-116) U/L Troponin I (<or=60) ng/L NT-Pro-B Natriuret Pep (<300) pg/mL Total Protein (6.4-8.2) g/dL Albumin (3.4-5.0) g/dL TSH (0.36-3.74) uIU/mL COVID-19 Source SARS-CoV-2 (PCR) (Negative) Influenza Type A (PCR) (Negative) Influenza Type B (PCR) (Negative) RSV (PCR) (Negative) HPI General Mode of arrival: ambulatory . Date/Time Provider Initiated Documentation: 04/20/22 09:26 . Limitations to Documentation: no limitations . Information obtained by: patient . HPI Narrative: 51-year-old male with multiple medical problems including history of COPD, coronary artery disease, ischemic cardiomyopathy, AICD, hypertension, opioid use disorder on Suboxone, chronic pain, here with chief complaint of fatigue. Patient notes increasing fatigue over the past couple days. He went to [facility] clinic today was noted to be feeling dizzy and having presyncope. He has not lost consciousness but has fallen multiple times. No head trauma or other trauma. Patient states he has been increasing his dose of gabapentin and taking approximately 1800 mg daily for the past week as opposed to the 900 mg daily that he was prescribed. He does also take Ativan 1 mg which he has been taking as prescribed and Suboxone 10 mg as prescribed daily. Patient notes he is feels like he is falling asleep today multiple times and having increased shortness of breath as well as increased bilateral lower extremity edema over the past few days. He has no chest pain. He has no pain in his lower legs. Related Data Home Medications Medication Instructions Recorded Confirmed amiodarone 200 mg tablet 200 mg PO DAILY 01/06/22 03/31/22 aspirin 81 mg tablet,delayed 81 mg PO DAILY 01/06/22 04/20/22 release atorvastatin 80 mg tablet 80 mg PO DAILY #30 tabs 01/06/22 04/20/22 bumetanide 1 mg tablet 1 mg PO BID #60 tabs 01/06/22 04/20/22 clopidogrel 75 mg tablet (Plavix) 75 mg PO DAILY #30 tabs 01/06/22 04/20/22 folic acid 1 mg tablet 2 mg PO DAILY #30 tabs 01/06/22 04/20/22 gabapentin 300 mg tablet 300 mg PO TID 01/06/22 04/20/22 hydralazine 50 mg tablet 50 mg PO TID #90 tabs 01/06/22 04/20/22 isosorbide mononitrate 30 mg 30 mg PO DAILY 01/06/22 04/20/22 tablet,extended release 24 hr losartan 25 mg tablet 25 mg PO DAILY #30 tabs 01/06/22 04/20/22 multivitamin with iron-mineral 1 tab PO DAILY 01/06/22 04/20/22 pantoprazole 40 mg tablet,delayed 40 mg PO DAILY #30 tabs 01/06/22 04/20/22 release (Protonix) ranolazine 500 mg tablet,extended 500 mg PO BID 01/06/22 04/20/22 release,12 hr thiamine HCl (vitamin B1) 100 mg 100 mg PO DAILY 01/06/22 04/20/22 tablet (Vitamin B-1) buprenorphine 2 mg-naloxone 0.5 mg 1 film sublingual DAILY 01/26/22 04/20/22 sublingual film buspirone 15 mg tablet 15 mg PO BID 03/31/22 04/20/22 citalopram 10 mg tablet 20 mg PO DAILY 03/31/22 04/20/22 nitroglycerin 0.4 mg sublingual 0.4 mg sublingual Q5-15M PRN 03/31/22 04/20/22 tablet buprenorphine 8 mg-naloxone 2 mg 1 film sublingual DAILY 04/20/22 04/20/22 sublingual film (Suboxone) lorazepam 0.5 mg tablet 0.5 mg PO BID 04/20/22 04/20/22 metoprolol succinate 25 mg 25 mg PO DAILY 04/20/22 04/20/22 tablet,extended release 24 hr trazodone 50 mg tablet 50 mg PO HS PRN 04/20/22 04/20/22 Previous Rx's Medication Instructions Recorded atorvastatin 80 mg tablet 80 mg PO DAILY #30 tabs 01/06/22 bumetanide 1 mg tablet 1 mg PO BID #60 tabs 01/06/22 clopidogrel 75 mg tablet (Plavix) 75 mg PO DAILY #30 tabs 01/06/22 folic acid 1 mg tablet 2 mg PO DAILY #30 tabs 01/06/22 hydralazine 50 mg tablet 50 mg PO TID #90 tabs 01/06/22 losartan 25 mg tablet 25 mg PO DAILY #30 tabs 01/06/22 pantoprazole 40 mg tablet,delayed 40 mg PO DAILY #30 tabs 01/06/22 release (Protonix) Allergies Allergy/AdvReac Type Severity Reaction Status Date / Time hydromorphone [From Dilaudid] Allergy Verified 04/20/22 09:17 General Stated Complaint: [id number] GLADIS: 3 Review of Systems All systems reviewed & are unremarkable except as noted in HPI and below Constitutional Constitutional: Denies fever(s) Cardiovascular Cardiovascular: Denies chest pain and Reports dyspnea Respiratory Respiratory: Reports cough and Reports dyspnea PFSH All Active Problems (Updated 04/22/22 @ 00:05 by BANDAR MORROW) Ischemic cardiomyopathy (Acute) Afib (Chronic) Tobacco use disorder (Acute) Hx of hyperlipidemia (Acute) HTN (hypertension) (Chronic) CHF (congestive heart failure) (Chronic) CAD (coronary artery disease) (Chronic) Medical History Alcohol use disorder, severe, dependence [facility] 01/21 Cardiac arrest COPD (chronic obstructive pulmonary disease) Dental infection Drug dependence ETOH abuse Exertional chest pain HLD (hyperlipidemia) Homelessness Morbid obesity Pacemaker Surgical History AICD (automatic cardioverter/defibrillator) present placed at [facility] for ischemic dilated cardiomyopathy Sruthi Robles DR 01/27/21 RH History of coronary artery stent placement History of hernia repair History of right knee joint replacement History of tonsillectomy Social History Smoking/Tobacco Use Status: Current-Occasional Tobacco Type: cigarettes Smoking risk assessment performed?: Yes Alcohol Intake: former Year quit: 2020 Details: Former heavy alcohol use. Drug use: Current Sobriety Substance use type: former substance user, marijuana and prescription drug Do you feel safe at home: Yes Do you feel safe in your relationship?: Yes Exam Const General: cooperative and no acute distress Nutritional Appearance: obese Orientation: alert Limitations: altered mental status (somnolent, arouses to voice) HENMT Mouth: moist mucous membranes Eyes Conjunctivae: normal conjunctivae Sclera: normal sclerae Neck Neck: trachea midline and supple Resp Effort & Inspection: other (depressed respirations) Auscultation: no rales, no rhonchi and wheezes (faint bilateral) Cardio Rate: regular rate and not tachycardic Rhythm: regular rhythm Heart Sounds: no murmurs GI Palpation: soft, not firm, no guarding, no masses, not rigid and nontender Skin General skin exam: no rashes or lesions noted Neuro General: patient awake, patient oriented x3 and tone normal Cognition: abnormal cognition (slowed) Extrem General: no calf tenderness and edema Laterality: bilateral (2+ pitting up to knees) Psych Appearance: grossly normal Speech and Movement: speech and movement normal Course Vital Signs Vital signs: Vital Signs Temperature 37.2 C 04/20/22 09:06 Pulse 89 04/20/22 09:06 Respiratory Rate 20 04/20/22 09:06 Blood Pressure 117/61 04/20/22 09:06 Pulse Oximetry 94 04/20/22 09:06 Temperature 37.2 C 04/20/22 09:06 Temperature Source Oral 04/20/22 09:06 Pulse 89 04/20/22 09:06 Respiratory Rate 20 04/20/22 09:06 Respiratory Effort 04/20/22 09:17 Blood Pressure 117/61 04/20/22 09:06 Blood Pressure Position Sitting 04/20/22 09:06 Pulse Oximetry 94 04/20/22 09:06 Oxygen Delivery Method Nasal Cannula 04/20/22 09:06 Oxygen Flow Rate 3 04/20/22 09:06 Critical Care Time Critical Care Time Critical Care Time: Yes Total Critical Care Time: 40 Attestation: I spent greater than 40 minutes addressing this patient's immediate life threats. Please see MDM section of note. This time was spent engaged in work d irectly related to the patient's care, exclusive of separate procedures, and failure to initiate these interventions would have likely resulted in clinically significant or life threatening deterioration in the patient's condition.
--- NOTE | 2022-04-20 09:45 | DI.CT_ITS ---
Exam(s) CT HEAD WO EXAM: CT HEAD WO CLINICAL HISTORY: altered mentation. TECHNIQUE: Imaging Protocol: Axial computed tomography images with coronal and sagittal reformatted images were created and reviewed COMPARISON: No exams were available for comparison FINDINGS: Ventricles and Extra axial spaces: Normal in size and morphology for the patient's age. Hemorrhage: None. Cerebral parenchyma: Normal. Midline shift: None. Brainstem/Cerebellum: Normal. Calvarium: Normal. Visualized Paranasal sinuses/Mastoids: Clear. Soft Tissues: Unremarkable. IMPRESSION: No acute intracranial process. RADIATION DOSE DELIVERED: 1,004.07mGy.cm Total DLP DATA REPOSITORY: All CT scans at this facility are submitted to the National Radiology Data Registry (NRDR) Dose Index Registry (DIR) with the [employer] (A[employer]). RADIATION OPTIMIZATION: All CT scans at this facility use at least one of these dose optimization te chniques: automated exposure control; mA and/or kV adjustment per patient size (includes targeted exa ms where dose is matched to clinical indication); or iterative reconstruction.
[2022-04-20 10:20] LABS: Abs Immature Grans 0.08 10^3/uL (0.0-0.06); Absolute Eosinophil Count 0.25 10^3/uL (0.0-0.7); Absolute Lymphocyte Count 1.69 10^3/uL (1.2-3.4); Absolute Monocyte Count 1.06 10^3/uL (0.1-0.8); BE (Venous) 13 mmol/L (-2-3); Basophils % 0.5; Eosinophils % 1.7; HCO3 (Venous) 38 mmol/L (23-28); HCT 39.2 % (40.0-50.0); HGB 12.6 g/dL (13.5-17.5); Immature Grans % 0.5; Lymphocytes % 11.3; MCH 30.1 pg (27.0-33.0); MCHC 32.1 % (32.0-36.0); MCV 94 fL (80-95); MPV 8.7 fL (8.0-11.0); Monocytes % 7.1; Neutrophils % 78.9; O2 Sat (Venous) 94 %; Platelet Count 307 10^3/uL (130-400); RBC 4.18 10^6/uL (4.36-5.78); RDW-SD 47.7 fL; TCO2 (Venous) 35 mmol/L (24-29); WBC 14.94 10^3/uL (4.4-10.8); pH (Venous) 7.34 (7.31-7.41); pO2 (Venous) 66 mmHg
[2022-04-20 10:21] LABS: Absolute Basophil Count 0.07 10^3/uL (0.0-0.2); Absolute Neutrophil Count 11.79 10^3/uL (1.2-6.7)
[2022-04-20 10:24] LABS: pCO2 (Venous) 71 mmHg (41-51)
[2022-04-20 10:45] LABS: COVID-19 PCR Negative (Negative); Influenza A PCR Negative (Negative); Influenza B PCR Negative (Negative); RSV PCR Negative (Negative)
[2022-04-20 10:47] LABS: Source Nasopharynx
[2022-04-20 10:50] LABS: ALT 21 U/L (16-63); AST 22 U/L (15-37); Albumin 3.2 g/dL (3.4-5.0); Alkaline Phosphatase 88 U/L (46-116); Anion Gap 1.3 mmol/L (3-11); BUN 10 mg/dL (7-18); Bilirubin, Total 0.4 mg/dL (0.2-1.0); CO2 38.7 mmol/L (21.0-32.0); CREATININE 0.8 mg/dL (0.70-1.30); Calcium 8.6 mg/dL (8.5-10.1); Chloride 100 mmol/L (98-107); Estimated GFR 105.82 (mL/min/1.73m2); Glucose 123 mg/dL (74-106); Magnesium 2.1 mg/dL (1.8-2.4); NT-proBNP 803 pg/mL (<300); Potassium 4.2 mmol/L (3.5-5.1); Sodium 140 mmol/L (136-145); TSH (W/Ref FT4) 0.69 uIU/mL (0.36-3.74); Total Protein 7.1 g/dL (6.4-8.2)
[2022-04-20 10:55] LABS: Troponin I 78 ng/L (<or=60)
[2022-04-20] MEDS: Furosemide 20 MG/2 ML VIAL IVP (12:16)
[2022-04-20 12:25] LABS: Lab Add On Test DONE
[2022-04-20 12:57] LABS: Procalcitonin < 0.1 ng/mL
[2022-04-20 14:03] LABS: Troponin I 117 ng/L (<or=60)
--- NOTE | 2022-04-20 14:57 | DI.US_ITS ---
APPROVED REPORT EXAM: Comprehensive 2D, Doppler, and color-flow Echocardiogram Patient Location: In-Patient Room/Bed: [id number] [employer] Apprentice: Erin Puri RDCS (AE) Indications: Acute CHF, Ischemic cardiomyopahty Echo Enhancing Agent Indication: Endocardial border delineation Agent(s) / Amount(s) Used: Definity 6.0 cc Comments: Contrast study was performed with 1 IV injection of 2cc of diluted definity. Other Information Study Quality: Poor. Technically limited study due to body habitus, inability to position patient exa m done supine bedside ICU. Conclusion Technically very difficult and suboptimal study Mild concentric left ventricular hypertrophy. Normal left ventricular chamber size. Estimated eject ion fraction is 60 to 65%. There may be an apical wall motion abnormality Right ventricle was not well visualized Device lead noted in the right heart Both atria are normal in size Aortic valve is sclerotic, probably trileaflet without stenosis or regurgitation No other structural or hemodynamically significant valvular disease was identified Wall motion Left Ventricle The left ventricle is normal size. The left ventricular systolic function is normal. The left ventric ular ejection fraction is within the normal range. Definity microbubble contrast injection was given. Mild concentric left ventricular hypertrophy. Possible apical wall motion abnormality LVEF is 60-65 %. Right Ventricle Right ventricle is not well visualized. Right ventricular systolic function could not be assessed. De vice lead is present in the right ventricle. Atria The left atrium size is normal. The right atrium size is normal. Aortic Valve The Aortic valve is sclerotic. Aortic valve is probably trileaflet. There is no aortic valvular steno sis. No aortic regurgitation is present. Mitral Valve The mitral valve is normal in structure. No evidence of mitral valve stenosis. Trace mitral regurgita tion. Tricuspid Valve The tricuspid valve is normal in structure. There is no tricuspid valve stenosis. Trace tricuspid reg urgitation. Pulmonic Valve Pulmonic valve is not well visualized. There is no pulmonic valvular stenosis. There is no pulmonic v alvular regurgitation. Great Vessels The aortic root is normal in size. The ascending aorta is normal in size. The IVC was not well visual ized. Pericardium There is no pericardial effusion. Technically limited sub costal imaging. 2D Dimensions IVSD d PLAX 1.31 cm M: 0.6-1.2 LV Vol A2C d MOD 61.8 mL LVPW d PLAX 1.31 cm M: 0.6 - 1.2 LV Vol A4C d MOD 180.7 mL LVID d PLAX 4.67 cm M: 4.2 - 5.8 LV EF A4C MOD 69.4 % LVDs 2.95 cm M: 2.5 - 4.0 LV EF A2C MOD 59.8 % Ao Root d 2.97 cm M: 3.1 - 3.7 LV EF Biplane MOD 65.5 % RA Area A4C 17.65 cm2 SV 74.14 mL RA Vol/ BSA A4C s A-L 19.7 mL/m2 SV Index 28.65 mL/m2 Ao Asc Diam d 3.19 cm M: 2.6 - 3.4 LV EF Teichholz 65.5 % LVEF (Singletary's) 65.55 % M: 52 - 72 LV Volume 78.41 mL M: 62 - 150 LV Volume Index 30.27 mL/m2 M: 34 - 74 LV Vol Biplane MOD 113.1 mL FS 35.85 % LV Diastology MV E' medial 0.089 (>0.07 m/s) E/A Ratio 1.1 LV E/e MED 9.90 (<14) MV E Vmax 0.88 (0.4-1.3 m/s) MV E' lateral 0.105 (>0.1 m/s) MV A Vmax 0.80 (0.4-1.3 m/s) LV E/e LAT 8.40 (<14) MV E/A Ratio 1.04 MV E/E' medial 9.90 MV E/E' lateral 8.42 Aortic Valve LVOT Area 3.50 cm2 AoV Area Vmax 3.16 cm2 LVOT Vmax 1.39 m/s AoV Area/ BSA (Vmax) 1.22 cm2/m2 LVOT Mean Sunil. 0.91 m/s JESSIE Mean Sunil. 2.87 cm2 LVOT Peak Grad 7.8 mmHg JESSIE Mean Sunil. Index 1.11 cm2/m2 LVOT Mean Grad 3.9 mmHg LVOT VTI 0.296 m LVOT Diam s 2.10 cm AoV Vmax 1.54 m/s Velocity Ratio 0.90 AoV Mean Sunil. 1.11 m/s AoV Peak Grad 9.5 mmHg LVOT SV 103.65 mL AoV Mean Grad 5.4 mmHg AoV VTI 0.283 m AoV Area VTI 3.66 cm2 AoV Area/ BSA (VTI) 1.42 cm/m2 Mitral Valve MV DT 209 (160-240 msec) MV PHT 60 msec MV Area PHT 3.64 cm2 MV VTI 0.290 m MV Area VTI 3.58 (4.0-6.0 cm2) Pulmonary Valve PV Vmax 1.24 (0.5-1.5 m/s) RVOT Peak Gr. 3.21 mmHg PV Peak Grad 6.1 mmHg RVOT Mean Gr. 1.55 mmHg PV Mean Grad 3.6 mmHg RVOT VTI 0.199 m PV VTI 0.251 m RVOT Vmax 0.90 m/s Tricuspid Valve TR Peak Grad 26.0 mmHg TR Vmax 2.55 m/s
[2022-04-20] MEDS: Perflutren Lipid Microspheres 1.5 ML VIAL IVP (16:38)
[2022-04-20] MEDS: Enoxaparin 40 MG/0.4 ML SYR SC (16:46)
[2022-04-20 17:01] LABS: Troponin I 128 ng/L (<or=60)
--- NOTE | 2022-04-20 18:20 | W.PM.HP.N ---
Date of service: 04/20/22 Time of Service: 18:21 Assessment and Plan Assessment and plan (1) Gabapentin overdose: Status: Acute Assessment and plan: Pt taking more daily for 1 week. Developed somnolence. Handling secretions and mentates normally. Hold gabapentin until more alert then resume at his prescribed dosage. (2) Ischemic cardiomyopathy: Status: Acute Assessment and plan: Followed by cardiology who was arranging an outpt echocardiogram. Will order echocardiogram. (3) AICD (automatic cardioverter/defibrillator) present: Assessment and plan: No firing reported. (4) COPD (chronic obstructive pulmonary disease): Assessment and plan: Does occasionally smoke per chart. Encourage cessation. Not on any inhalers at home. (5) CHF (congestive heart failure): Status: Chronic Assessment and plan: NTProBNP of 800. Lasix iv given in ED. Continue in AM. Troponin 78 > 128. Monitor. Echocardiogram ordered. (6) Tobacco use disorder: Status: Acute Assessment and plan: Offer nicoderm. (7) Alcohol use disorder, severe, dependence: Assessment and plan: In remission. (8) Morbid obesity: Assessment and plan: + evidence of OHS. Slept well on Bipap. He had a sleep study that indicated LARA but he did not follow through with CPAP trial. Referral to pulmonary medicine. May be would qualify for noninvasive ventilation device for home use. History of Present Illness History of Present Illness Chief Complaint: Fatigue, Presyncope Narrative: This is a 51 yo male with a PMH of ischemic cardiomyopahty, AICD, CAD, COPD, HTN, chronic pain on suboxone. He endorsed feeling increasingly fatigued for several days along with bilateral LE edema developing. + mild shortness of air on day of admission. He went to the [facility] clinic on the day of this admission and there he was feeling dizzy and felt as if he might pass out, but did not. He also endorsed falling several times recently. He did not c/o pain from the falls. He has been prescribed gabapentin 300mg TID but has increased this on his own volition to a total of 1800mg day for one week. He reported taking his ativan and suboxone as prescribed. No F/C/sputum. No abd pain/N/V. Review of Systems All systems reviewed & are unremarkable except as noted in HPI and below PFSH All Active Problems Gabapentin overdose (Acute) Somnolence (Acute) Hypercarbia (Acute) Hypoxia (Acute) Ischemic cardiomyopathy (Acute) Afib (Chronic) Tobacco use disorder (Acute) Hx of hyperlipidemia (Acute) HTN (hypertension) (Chronic) CHF (congestive heart failure) (Chronic) CAD (coronary artery disease) (Chronic) Medical History Alcohol use disorder, severe, dependence [facility] 01/21 Cardiac arrest COPD (chronic obstructive pulmonary disease) Dental infection Drug dependence ETOH abuse Exertional chest pain HLD (hyperlipidemia) Homelessness Morbid obesity Pacemaker Surgical History AICD (automatic cardioverter/defibrillator) present placed at [facility] for ischemic dilated cardiomyopathy Medrosangela Robles DR 01/27/21 [facility] History of coronary artery stent placement History of hernia repair History of right knee joint replacement History of tonsillectomy Social History Smoking/Tobacco Use Status: Current-Occasional Tobacco Type: cigarettes Smoking risk assessment performed?: Yes Alcohol Intake: former Year quit: 2020 Details: Former heavy alcohol use. Drug use: Current Sobriety Substance use type: former substance user, marijuana and prescription drug Do you feel safe at home: Yes Do you feel safe in your relationship?: Yes Meds Allergies and Home Medications Allergies Allergy/AdvReac Type Severity Reaction Status Date / Time hydromorphone [From Dilaudid] Allergy Verified 04/20/22 09:17 Home Medications Medication Instructions Recorded Confirmed Type amiodarone 200 mg tablet 200 mg PO DAILY 01/06/22 03/31/22 History aspirin 81 mg tablet,delayed 81 mg PO DAILY 01/06/22 04/20/22 History release atorvastatin 80 mg tablet 80 mg PO DAILY #30 tabs 01/06/22 04/20/22 Rx bumetanide 1 mg tablet 1 mg PO BID #60 tabs 01/06/22 04/20/22 Rx clopidogrel 75 mg tablet (Plavix) 75 mg PO DAILY #30 tabs 01/06/22 04/20/22 Rx folic acid 1 mg tablet 2 mg PO DAILY #30 tabs 01/06/22 04/20/22 Rx gabapentin 300 mg tablet 300 mg PO TID 01/06/22 04/20/22 History hydralazine 50 mg tablet 50 mg PO TID #90 tabs 01/06/22 04/20/22 Rx isosorbide mononitrate 30 mg 30 mg PO DAILY 01/06/22 04/20/22 History tablet,extended release 24 hr losartan 25 mg tablet 25 mg PO DAILY #30 tabs 01/06/22 04/20/22 Rx multivitamin with iron-mineral 1 tab PO DAILY 01/06/22 04/20/22 History pantoprazole 40 mg tablet,delayed 40 mg PO DAILY #30 tabs 01/06/22 04/20/22 Rx release (Protonix) ranolazine 500 mg tablet,extended 500 mg PO BID 01/06/22 04/20/22 History release,12 hr thiamine HCl (vitamin B1) 100 mg 100 mg PO DAILY 01/06/22 04/20/22 History tablet (Vitamin B-1) buprenorphine 2 mg-naloxone 0.5 mg 1 film sublingual DAILY 01/26/22 04/20/22 History sublingual film buspirone 15 mg tablet 15 mg PO BID 03/31/22 04/20/22 History citalopram 10 mg tablet 20 mg PO DAILY 03/31/22 04/20/22 History nitroglycerin 0.4 mg sublingual 0.4 mg sublingual Q5-15M PRN 03/31/22 04/20/22 History tablet buprenorphine 8 mg-naloxone 2 mg 1 film sublingual DAILY 04/20/22 04/20/22 History sublingual film (Suboxone) lorazepam 0.5 mg tablet 0.5 mg PO BID 04/20/22 04/20/22 History metoprolol succinate 25 mg 25 mg PO DAILY 04/20/22 04/20/22 History tablet,extended release 24 hr trazodone 50 mg tablet 50 mg PO HS PRN 04/20/22 04/20/22 History Exam Narrative Exam Narrative: Asleep with BiPAP in place. Arouses to verbal stimuli but remains lethargic. Does answer questions appropriately. Const Nutritional Appearance: obese Eyes General: appearance normal, both eyes and all related structures Sclera: sclerae normal Resp Effort & Inspection: normal respiratory effort Auscultation: diminished lung sounds and wheezes scattered wheezes (faint) Cardio Rate: regular rate Rhythm: regular rhythm Heart Sounds: S2 normal GI Inspection: non-distended and obesity Palpation: soft and nontender Skin General skin exam: no rashes or lesions noted Neuro General: no focal motor deficits Extrem General: no calf tenderness and edema Laterality: bilateral Results Labs Result diagrams: 04/21/22 05:30 04/21/22 05:30 Labs: Laboratory Results - last 24 hr 04/20/22 04/20/22 04/20/22 09:59 10:15 10:15 WBC 14.94 H RBC 4.18 L Hgb 12.6 L Hct 39.2 L MCV 94 MCH 30.1 MCHC 32.1 RDW 14.0 Plt Count 307 MPV 8.7 Immature Gran % 0.5 Neutrophils % 78.9 Lymphocytes % 11.3 Monocytes % 7.1 Eosinophils % 1.7 Basophils % 0.5 Nucleated RBC % 0.0 Absolute Neutrophils 11.79 H Absolute Lymphocytes 1.69 Absolute Monocytes 1.06 H Absolute Eosinophils 0.25 Absolute Basophils 0.07 VBG pH VBG pCO2 VBG pO2 VBG HCO3 VBG Total CO2 VBG O2 Saturation VBG Base Excess Sodium 140 Potassium 4.2 Chloride 100 Carbon Dioxide 38.7 H Anion Gap 1.3 L BUN 10 Creatinine 0.8 Est GFR (CKD-EPI 2020) 105.82 Glucose 123 H Calcium 8.6 Magnesium 2.1 Total Bilirubin 0.4 AST 22 ALT 21 Alkaline Phosphatase 88 Troponin I 78 H* NT-Pro-B Natriuret Pep 803 H Total Protein 7.1 Albumin 3.2 L Procalcitonin TSH 0.69 COVID-19 Source Nasopharynx SARS-CoV-2 (PCR) Negative Influenza Type A (PCR) Negative Influenza Type B (PCR) Negative RSV (PCR) Negative Add-On Test Request 04/20/22 04/20/22 04/20/22 10:15 10:15 10:15 WBC RBC Hgb Hct MCV MCH MCHC RDW Plt Count MPV Immature Gran % Neutrophils % Lymphocytes % Monocytes % Eosinophils % Basophils % Nucleated RBC % Absolute Neutrophils Absolute Lymphocytes Absolute Monocytes Absolute Eosinophils Absolute Basophils VBG pH 7.34 VBG pCO2 71 H* VBG pO2 66 VBG HCO3 38 H VBG Total CO2 35 H VBG O2 Saturation 94 VBG Base Excess 13 H Sodium Potassium Chloride Carbon Dioxide Anion Gap BUN Creatinine Est GFR (CKD-EPI 2020) Glucose Calcium Magnesium Total Bilirubin AST ALT Alkaline Phosphatase Troponin I NT-Pro-B Natriuret Pep Total Protein Albumin Procalcitonin < 0.1 TSH COVID-19 Source SARS-CoV-2 (PCR) Influenza Type A (PCR) Influenza Type B (PCR) RSV (PCR) Add-On Test Request DONE 04/20/22 04/20/22 13:37 16:28 WBC RBC Hgb Hct MCV MCH MCHC RDW Plt Count MPV Immature Gran % Neutrophils % Lymphocytes % Monocytes % Eosinophils % Basophils % Nucleated RBC % Absolute Neutrophils Absolute Lymphocytes Absolute Monocytes Absolute Eosinophils Absolute Basophils VBG pH VBG pCO2 VBG pO2 VBG HCO3 VBG Total CO2 VBG O2 Saturation VBG Base Excess Sodium Potassium Chloride Carbon Dioxide Anion Gap BUN Creatinine Est GFR (CKD-EPI 2020) Glucose Calcium Magnesium Total Bilirubin AST ALT Alkaline Phosphatase Troponin I 117 H* 128 H* NT-Pro-B Natriuret Pep Total Protein Albumin Procalcitonin TSH COVID-19 Source SARS-CoV-2 (PCR) Influenza Type A (PCR) Influenza Type B (PCR) RSV (PCR) Add-On Test Request Last Vital Signs Temp 37.2 C 04/20/22 09:06 Pulse 68 04/20/22 15:31 Resp 9 L 04/20/22 15:31 BP 114/65 04/20/22 14:33 Pulse Ox 93 04/20/22 15:31
[2022-04-20 18:47] LABS: Bilirubin Negative (Negative); Blood Negative (Negative); Clarity Clear (Clear); Glucose Negative (Negative); Ketones Negative (Negative); Leukocyte Esterase Negative (Negative); Nitrite Negative (Negative); Specific Gravity 1.025 (1.005-1.025); Urobilinogen 0.2 EU/dL (Up TO 0.2); pH 5.5 (5-8)
--- NOTE | 2022-04-20 20:02 | TELEP.MEDR_ITS ---
Date of service: 04/20/22 Time of Service: 20:02 [facility] Med Rec Allergies Allergies: hydromorphone [From Dilaudid] Allergy (Verified 04/20/22 09:17) Interview Person Interviewed: * Patient Quality Quality of Interview/Accuracy of Medication List: Good Sources Sources used to compile medication list: [employer] Medication List and SureScripts Changes made to Home Medication List: ADDITIONS: * none DELETIONS: * Buprenorphine patch CHANGES: * Buspirone 15mg PO BID * Citalopram 20mg QD * Hydralazine 50mg PO TID * Lorazepam 0.5mg PO BID * Metoprolol succinate 25mg PO daily * Trazodone 50mg PO qHS PRN * Suboxone: 10mg buprenorphine component daily Additional Notes Additional Notes: * Suboxone dose: Patient reports he goes to the [facility] clinic every day to get dose. They were not open at this time so I could not verify the dose with them * Trazodone: patient reports he does not like to take as it makes him dry Recommended Changes Recommended Changes(reason for recommendation): * none Attestation: The home medication list is now updated to the best of my knowledge and is ready to be reconciled by the provider. [facility] Medication Reconciliation Pharmacist at for any questions.
--- NOTE | 2022-04-20 20:02 | TELEP.MEDREC ---
Date of service: 04/20/22 Time of Service: 20:02 Telepharmacy Home Med Rec Allergies Allergies: hydromorphone [From Dilaudid] Allergy (Verified 04/20/22 09:17) Interview Person Interviewed: Patient Quality Quality of Interview/Accuracy of Medication List: Good Sources Sources used to compile medication list: [employer] Medication List and SureScripts Changes made to Home Medication List: ADDITIONS: none DELETIONS: Buprenorphine patch CHANGES: Buspirone 15mg PO BID Citalopram 20mg QD Hydralazine 50mg PO TID Lorazepam 0.5mg PO BID Metoprolol succinate 25mg PO daily Trazodone 50mg PO qHS PRN Suboxone: 10mg buprenorphine component daily Additional Notes Additional Notes: Suboxone dose: Patient reports he goes to the [facility] every day to get dose. They were not open at this time so I could not verify the dose with them Trazodone: patient reports he does not like to take as it makes him dry Recommended Changes Recommended Changes(reason for recommendation): none Attestation: The home medication list is now updated to the best of my knowledge and is ready to be reconciled by the provider. Please contact the TelePharmacy Medication Reconciliation Pharmacist at for any questions.
[2022-04-20] MEDS: Acetaminophen 325 MG TAB PO (22:24)
[2022-04-20] MEDS: Ranolazine 500 MG TABCR PO (22:24)
[2022-04-20] MEDS: Atorvastatin 40 MG TAB 80 MG PO (22:24)
[2022-04-20] MEDS: Gabapentin 300 MG CAP PO (22:25)
[2022-04-20] MEDS: Nicotine 21 MG/24 HR PATCH TD (22:25)
[2022-04-20] MEDS: Bumetanide 1 MG TAB PO (22:25)
[2022-04-21] VITALS (17 sets, daily range): BP systolic 91–105; BP diastolic 55–64; PULSE 60–95; RESP 9–19; TEMP 35.8–36.7; O2SAT 86–94
[2022-04-21] MEDS: LORazepam 0.5 MG TAB PO ×2 (00:49→08:47)
[2022-04-21] MEDS: Normal Saline Flush 10 ML SYR IVP ×2 (05:35→08:49)
[2022-04-21 06:21] LABS: Abs Immature Grans 0.04 10^3/uL (0.0-0.06); Absolute Basophil Count 0.07 10^3/uL (0.0-0.2); Absolute Eosinophil Count 0.52 10^3/uL (0.0-0.7); Absolute Lymphocyte Count 2.57 10^3/uL (1.2-3.4); Absolute Monocyte Count 0.98 10^3/uL (0.1-0.8); Absolute Neutrophil Count 5.65 10^3/uL (1.2-6.7); Basophils % 0.7; Eosinophils % 5.3; HGB 11.9 g/dL (13.5-17.5); Immature Grans % 0.4; Lymphocytes % 26.1; MCH 30.2 pg (27.0-33.0); MCHC 32.2 % (32.0-36.0); MCV 94 fL (80-95); MPV 9.1 fL (8.0-11.0); Neutrophils % 57.5; Platelet Count 274 10^3/uL (130-400); RBC 3.94 10^6/uL (4.36-5.78); RDW 14.2 % (11.8-14.1); RDW-SD 48.9 fL; WBC 9.83 10^3/uL (4.4-10.8)
[2022-04-21 06:41] LABS: Anion Gap -0.4 mmol/L (3-11); BUN 12 mg/dL (7-18); CO2 40.4 mmol/L (21.0-32.0); CREATININE 0.8 mg/dL (0.70-1.30); Calcium 8.5 mg/dL (8.5-10.1); Chloride 101 mmol/L (98-107); Estimated GFR 105.82 (mL/min/1.73m2); Glucose 115 mg/dL (74-106); Potassium 3.4 mmol/L (3.5-5.1); Sodium 141 mmol/L (136-145); Troponin I 51 ng/L (<or=60)
--- NOTE | 2022-04-21 08:25 | NUR.NOTE ---
Patient set up with breakfast tray. Patient sitting up at side of bed speaking to MD.Nursing Note:
[2022-04-21] MEDS: Amiodarone 200 MG TAB PO (08:31)
[2022-04-21] MEDS: Aspirin E.C. 81 MG TABEC PO (08:31)
[2022-04-21] MEDS: Citalopram 20 MG TAB PO (08:32)
[2022-04-21] MEDS: busPIRone 15 MG TAB PO (08:32)
[2022-04-21] MEDS: Folic Acid 1 MG TAB 2 MG PO (08:32)
[2022-04-21] MEDS: Clopidogrel 75 MG TAB PO (08:32)
[2022-04-21] MEDS: Isosorbide Mononitrate 30 MG TABCR PO (08:33)
[2022-04-21] MEDS: Furosemide 20 MG/2 ML VIAL IVP (08:33)
[2022-04-21] MEDS: Gabapentin 300 MG CAP PO (08:33)
[2022-04-21] MEDS: Pantoprazole 40 MG TABCR PO (08:34)
[2022-04-21] MEDS: Losartan 25 MG TAB PO (08:34)
[2022-04-21] MEDS: Ranolazine 500 MG TABCR PO (08:35)
[2022-04-21] MEDS: Thiamine 100 MG TAB PO (08:35)
[2022-04-21] MEDS: Buprenorphine/Naloxone 8 mg/2 mg FILM 1 EACH SL (08:46)
[2022-04-21] MEDS: Bumetanide 1 MG TAB PO (08:46)
[2022-04-21] MEDS: Buprenorphine/Naloxone 2 mg/0.5 mg FILM 1 EACH SL (08:46)
[2022-04-21] MEDS: Potassium Chloride 20 MEQ TABCR PO (08:47)
[2022-04-21] MEDS: Metoprolol CR 25 MG TABCR PO (08:47)
--- NOTE | 2022-04-21 08:54 | INITIAL_ITS ---
- If Service Date Differs Date of service: 04/21/22 Time of Service: 08:54 Care Management Initial Assess REASON FOR HOSPITALIZATION:: Unintentional overdose, Acute CHF PAST MEDICAL HISTORY/PAST SURGICAL HISTORY:: Medical History . Alcohol use disorder, severe, dependence. [facility] 01/21. Cardiac arrest. COPD (chronic obstructive pulmonary disease). Dental infection. Drug dependence. ETOH abuse. Exertional chest pain. HLD (hyperlipidemia). Homelessness. Morbid obesity. Pacemaker. Surgical History . AICD (automatic cardioverter/defibrillator) present. placed at [facility] for ischemic dilated cardiomyopathy Sruthi Robles DR 01/27/21 . History of coronary artery stent placement. History of hernia repair. History of right knee joint replacement. History of tonsillectomy PREVIOUS FUNCTIONAL STATUS/SOCIAL/FAMILY SUPPORTS:: Resides alone in [place], no contacts listed. CURRENT FUNCTIONAL STATUS:: In ICU, he was up on the side of his bed, eating breakfast and meeting with MD this morning. Per MD, he will discharge to home today. Has patient been provided with info about the portal/API?: Yes Did the patient sign up for the portal?: No CODE STATUS:: Full Code INSURANCE COVERAGE / FINANCIAL ISSUES:: Medicaid. [employer] CURRENT HOME/COMMUNITY SERVICES/EQUIPMENT:: [facility] PR[facility]ARE PHYSICIAN:: Gerri Silverman POTENTIAL DISCHARGE NEEDS:: Last dose letter, follow up appointments. PATIENT/FAMILY EDUCATION NEEDS:: Review discharge instructions, discuss [employer]. ANTICIPATED BARRIERS TO DISCHARGE:: None identified. TRANSPORTATION:: Via private vehicle with [id number]. PLAN:: Pramod will return home with no additional services at this time, last dose letter provided for [facility] follow up. He will also follow up with Pulmonology at [facility] and his PCP. He will transport via private vehicle with [facility], coordinated by [facility].
--- NOTE | 2022-04-21 09:56 | NUR.NOTE ---
Patient passes walking 02 trial with respiratory therapist.Nursing Note:
--- NOTE | 2022-04-21 10:33 | W.PM.DS.N ---
Date of service: 04/21/22 Time of Service: 10:43 DS: Diagnosis Discharge Diagnosis (1) Gabapentin overdose: Status: Acute (2) Ischemic cardiomyopathy: Status: Acute (3) AICD (automatic cardioverter/defibrillator) present: (4) COPD (chronic obstructive pulmonary disease): (5) CHF (congestive heart failure): Status: Chronic (6) Tobacco use disorder: Status: Acute (7) Alcohol use disorder, severe, dependence: (8) Morbid obesity: Discharge Plan Disposition Patient Disposition: Home Condition: Improving Discharge Details Reason For Visit: Unintentional Overdose, Acute CHF Admit Date/Time: 04/20/22 12:48 Admit Provider: Andriy Collier Attending Provider: Andriy Collier Primary Care Provider: TIKI DOMINGUEZ Hospital Course Hospital Course: This is a 51 yo male with a PMH of ischemic cardiomyopahty, AICD, CAD, COPD, HTN, chronic pain on suboxone.? He endorsed feeling increasingly fatigued for several days along with bilateral LE edema developing.? + mild shortness of air on day of admission. He went to the [facility] clinic on the day of this admission and there he was feeling dizzy and felt as if he might pass out, but did not.? He also endorsed falling several times recently.? He did not c/o pain from the falls.? He has been prescribed gabapentin 300mg TID but has increased this on his own volition to a total of 1800mg day for one week. He reported taking his ativan and suboxone as prescribed.? No F/C/sputum.? No abd pain/N/V.? He remained on BiPAP overnight and stabilized. The following morning he was tired but oriented and desired to go home. He walked with respiratory therapy and his oxygen saturations remained in the 90-93% range. Echocardiogram performed and showed: Technically very difficult and suboptimal study Mild concentric left ventricular hypertrophy.? Normal left ventricular chamber size.? Estimated ejection fraction is 60 to 65%.? There may be an apical wall motion abnormality He will resume his prescribed dose of gabapentin. He has a scheduled appt with Dr Reese, Cardiology. Referral made to Dr Hoffman, Pulmonary medicine for COPD and obesity hypoventilation syndrome. He is likely a candidate for an AVAPS device. Home Meds and New Rx's Prescriptions: Continued buspirone 15 mg tablet 15 mg PO BID citalopram 10 mg tablet 20 mg PO DAILY nitroglycerin 0.4 mg tablet, sublingual 0.4 mg sublingual Q5-15M PRN Rx Instructions: do not exceed 3 doses per episode lorazepam 0.5 mg tablet 0.5 mg PO BID metoprolol succinate 25 mg tablet extended release 24 hr 25 mg PO DAILY buprenorphine-naloxone [Suboxone] 8-2 mg Film 1 film sublingual DAILY Rx Instructions: In addition to 2mg-0.5mg film (total daily dose: 10-2.5mg SL daily) trazodone 50 mg tablet 50 mg PO HS PRN isosorbide mononitrate 30 mg Tablet Extended Release 24 Hr 30 mg PO DAILY thiamine HCl (vitamin B1) [Vitamin B-1] 100 mg Tablet 100 mg PO DAILY aspirin 81 mg Tablet,Delayed Release (Dr/Ec) 81 mg PO DAILY multivitamin with iron-mineral Tablet 1 tab PO DAILY gabapentin 300 mg Tablet 300 mg PO TID ranolazine 500 mg Tablet Extended Release 12 Hr 500 mg PO BID atorvastatin 80 mg tablet 80 mg PO DAILY Qty: 30 0RF bumetanide 1 mg tablet 1 mg PO BID Qty: 60 0RF Rx Instructions: @ 0800 & 1200 clopidogrel [Plavix] 75 mg tablet 75 mg PO DAILY Qty: 30 0RF folic acid 1 mg tablet 2 mg PO DAILY Qty: 30 0RF hydralazine 50 mg tablet 50 mg PO TID Qty: 90 0RF losartan 25 mg tablet 25 mg PO DAILY Qty: 30 0RF pantoprazole [Protonix] 40 mg tablet,delayed release (DR/EC) 40 mg PO DAILY Qty: 30 0RF amiodarone 200 mg Tablet 200 mg PO DAILY buprenorphine-naloxone 2-0.5 mg Film 1 film sublingual DAILY Rx Instructions: In addition to 8-2mg film (total daily dose: 10-2.5mg SL daily) Discharge Instructions Referrals: TIKI DOMINGUEZ [Primary Care Provider] - 05/05/22 10:00 am (An apppointment has been made for you with your primary care physician at [facility]. If you cannot make this appointment, call them at [phone] to reschedule. ) May Hoffman MD [ [facility] STAFF PHYSICIAN] - ([facility], evaluate for noninvasive ventilation device) Activity:: Activity as Tolerated Equipment/Supplies:: No Equipment Needed Diet:: Heart healthy, low Na Discharge Orders Discharge Orders: Discharge Order (Routine); Ordered 04/21/22 Ordered By: Andriy Collier Discharge Data Discharge Date/Time-TO BE ENTERED AT DEPARTURE: 04/21/22 11:45 Discharge Comment: Patient pleased with care received. DS: Summary Time Spent with Patient providing and/or coordinating discharge services: Greater than 30 minutes Status at Discharge Functional status at discharge: independent ambulation Overall status at discharge: patient is progressing back to baseline Mental Status: mental status grossly normal Speech and Movement: speech and movement normal Mood: congruent mood Affect: normal affect Exam Narrative Exam Narrative: Appears tired but is awake and conversant. Also observed walking with resp therapy in hallway while performing exercise oximetry. Const General: cooperative and no acute distress Nutritional Appearance: obese Orientation: oriented x3 Eyes General: appearance normal, both eyes and all related structures Sclera: sclerae normal Resp Effort & Inspection: normal respiratory effort Auscultation: diminished lung sounds and wheezes scattered wheezes (faint) Cardio Rate: regular rate Rhythm: regular rhythm Heart Sounds: S2 normal GI Inspection: non-distended and obesity Palpation: soft and nontender Skin General skin exam: no rashes or lesions noted Neuro General: no focal motor deficits Extrem General: no calf tenderness and edema Laterality: bilateral Psych Mental Status: mental status grossly normal Speech and Movement: speech and movement normal Mood: congruent mood Affect: normal affect DS: Data Vitals/I&O Vitals and I&O: Vital Signs Temperature 35.9 C L 04/21/22 10:27 Temperature Source Temporal Artery Scan 04/21/22 10:27 Pulse 72 04/21/22 10:27 Pulse 70 04/21/22 05:31 Respiratory Rate 15 04/21/22 10:27 Respiratory Effort 04/21/22 08:57 Respiratory Depth Normal 04/21/22 08:57 Respiratory Pattern Normal 04/21/22 08:57 Blood Pressure 102/64 04/21/22 10:27 Blood Pressure Mean 73 04/21/22 08:57 Blood Pressure Position Sitting 04/21/22 08:57 Pulse Oximetry 93 04/21/22 10:27 Oxygen Delivery Method Room Air 04/21/22 10:27 Oxygen Flow Rate 0 04/21/22 10:27 Fraction of Inspired Oxygen (FIO2) 30 04/21/22 08:19 Pain Level 4 04/21/22 10:27 Intake & Output 04/20/22 04/20/22 04/21/22 11:59 23:59 11:59 Intake Total 460 / 460 290 / 290 Output Total 850 / 850 1700 / 1700 Balance -390 / -390 -1410 / -1410 Weight 154.221 kg 154.221 kg Intake: IV Oral 450 / 450 290 / 290 Output: Urine 850 / 850 1700 / 1700 Other: Urine Color Light Lashay Yellow Urine Appearance Clear Clear Urine Odor Strong None Comment reports trouble urinating when not private but pt was able Also voided in bedside commode. unknown amount. Stool Size Large Stool Characteristics Hard Brown Voiding Methods Urinal Urinal Data Completed and Pending Labs on day of discharge: Labs from last 24 hours 04/21/22 04/21/22 04/20/22 05:30 05:30 18:31 WBC 9.83 RBC 3.94 L Hgb 11.9 L Hct 37.0 L MCV 94 MCH 30.2 MCHC 32.2 RDW 14.2 H Plt Count 274 MPV 9.1 Immature Gran % 0.4 Neutrophils % 57.5 Lymphocytes % 26.1 Monocytes % 10.0 Eosinophils % 5.3 Basophils % 0.7 Nucleated RBC % 0.0 Absolute Neutrophils 5.65 Absolute Lymphocytes 2.57 Absolute Monocytes 0.98 H Absolute Eosinophils 0.52 Absolute Basophils 0.07 Sodium 141 Potassium 3.4 L Chloride 101 Carbon Dioxide 40.4 H Anion Gap -0.4 L BUN 12 Creatinine 0.8 Est GFR (CKD-EPI 2020) 105.82 Glucose 115 H Calcium 8.5 Magnesium Total Bilirubin AST ALT Alkaline Phosphatase Troponin I 51 NT-Pro-B Natriuret Pep Total Protein Albumin Procalcitonin TSH Urine Color Yellow Urine Clarity Clear Urine pH 5.5 Ur Specific [place] 1.025 Urine Protein Negative Urine Ketones Negative Urine Blood Negative Urine Nitrite Negative Urine Bilirubin Negative Urine Urobilinogen 0.2 Ur Leukocyte Esterase Negative Urine Glucose Negative COVID-19 Source SARS-CoV-2 (PCR) Influenza Type A (PCR) Influenza Type B (PCR) RSV (PCR) Add-On Test Request 04/20/22 04/20/22 04/20/22 16:28 13:37 10:15 WBC RBC Hgb Hct MCV MCH MCHC RDW Plt Count MPV Immature Gran % Neutrophils % Lymphocytes % Monocytes % Eosinophils % Basophils % Nucleated RBC % Absolute Neutrophils Absolute Lymphocytes Absolute Monocytes Absolute Eosinophils Absolute Basophils Sodium Potassium Chloride Carbon Dioxide Anion Gap BUN Creatinine Est GFR (CKD-EPI 2020) Glucose Calcium Magnesium Total Bilirubin AST ALT Alkaline Phosphatase Troponin I 128 H* 117 H* NT-Pro-B Natriuret Pep Total Protein Albumin Procalcitonin < 0.1 TSH Urine Color Urine Clarity Urine pH Ur Specific [place] Urine Protein Urine Ketones Urine Blood Urine Nitrite Urine Bilirubin Urine Urobilinogen Ur Leukocyte Esterase Urine Glucose COVID-19 Source SARS-CoV-2 (PCR) Influenza Type A (PCR) Influenza Type B (PCR) RSV (PCR) Add-On Test Request 04/20/22 04/20/22 04/20/22 10:15 10:15 09:59 WBC RBC Hgb Hct MCV MCH MCHC RDW Plt Count MPV Immature Gran % Neutrophils % Lymphocytes % Monocytes % Eosinophils % Basophils % Nucleated RBC % Absolute Neutrophils Absolute Lymphocytes Absolute Monocytes Absolute Eosinophils Absolute Basophils Sodium 140 Potassium 4.2 Chloride 100 Carbon Dioxide 38.7 H Anion Gap 1.3 L BUN 10 Creatinine 0.8 Est GFR (CKD-EPI 2020) 105.82 Glucose 123 H Calcium 8.6 Magnesium 2.1 Total Bilirubin 0.4 AST 22 ALT 21 Alkaline Phosphatase 88 Troponin I 78 H* NT-Pro-B Natriuret Pep 803 H Total Protein 7.1 Albumin 3.2 L Procalcitonin TSH 0.69 Urine Color Urine Clarity Urine pH Ur Specific [place] Urine Protein Urine Ketones Urine Blood Urine Nitrite Urine Bilirubin Urine Urobilinogen Ur Leukocyte Esterase Urine Glucose COVID-19 Source Nasopharynx SARS-CoV-2 (PCR) Negative Influenza Type A (PCR) Negative Influenza Type B (PCR) Negative RSV (PCR) Negative Add-On Test Request DONE PFS All Active Problems Gabapentin overdose (Acute) Somnolence (Acute) Hypercarbia (Acute) Hypoxia (Acute) Ischemic cardiomyopathy (Acute) Afib (Chronic) Tobacco use disorder (Acute) Hx of hyperlipidemia (Acute) HTN (hypertension) (Chronic) CHF (congestive heart failure) (Chronic) CAD (coronary artery disease) (Chronic) Medical History Alcohol use disorder, severe, dependence [facility] 01/21 Cardiac arrest COPD (chronic obstructive pulmonary disease) Dental infection Drug dependence ETOH abuse Exertional chest pain HLD (hyperlipidemia) Homelessness Morbid obesity Pacemaker Surgical History AICD (automatic cardioverter/defibrillator) present placed at [facility] for ischemic dilated cardiomyopathy Medrosangela Robles DR 01/27/21 RH History of coronary artery stent placement History of hernia repair History of right knee joint replacement History of tonsillectomy Social History Smoking/Tobacco Use Status: Current-Occasional Tobacco Type: cigarettes Smoking risk assessment performed?: Yes Alcohol Intake: former Year quit: 2020 Details: Former heavy alcohol use. Drug use: Current Sobriety Substance use type: former substance user, marijuana and prescription drug Do you feel safe at home: Yes Do you feel safe in your relationship?: Yes
--- NOTE | 2022-04-21 11:08 | PDOC.CMDIS ---
- If Service Date Differs Date of service: 04/21/22 Time of Service: 11:08 LACE Index Scoring Tool - Questions: Length of Stay (in days): 4 - 6 Acuity (Admit via E.D.?): Yes Comorbidities: Chronic Pulmonary Disease E.D. Visits: 5 - Answers: Total Score: 13 Risk of Readmission: High Risk Care Management Discharge Reason for Hospitalization: Unintentional overdose, Acute CHF Discharge Plan: Pramod will return home with no additional services at this time, last dose letter provided for KADEN follow up. He will also follow up with Pulmonology at [facility] and his PCP. He will [facility] private [facility] with [facility] Patient/Family Education Needs: Review discharge instructions, discuss Ask Me Three. Services Needed at Discharge: Transportation ([facility])
--- NOTE | 2022-04-21 11:38 | NUR.NOTE ---
Discharge paperwork reviewed with patient. Dr. Romano's office did not return a phone call for an appointment so patient is instructed to call Dr. Romano's office to schedule the appointment himself. Patient is given a pair of scrub bottoms for transport home by [facility]. Patient is returning to the [facility] where he is temporarily residing. Discharge paperwork if reviewed with patient. There are no new medication going home with patient.Nursing Note:
== END 2022-04-21 11:45 | disposition home or self-care (01) | DRG 918 ==
LOC: ER 12:57 → ICU 14:12
PROVIDERS: Admitting Provider Family Medicine; Emergency Provider Student in an Organized Health Care Education/Training Program; PCP Nurse Practitioner Family; Visit Provider Family Medicine
DX: T42.6X1A Poisoning by other antiepileptic and sedative-hypnotic drugs, accidental (unintentional), initial encounter (principal); Z68.43 Body mass index [BMI] 50.0-59.9, adult; I25.5 Ischemic cardiomyopathy; Z95.810 Presence of automatic (implantable) cardiac defibrillator; J44.9 Chronic obstructive pulmonary disease, unspecified; I50.9 Heart failure, unspecified; F17.210 Nicotine dependence, cigarettes, uncomplicated; E66.01 Morbid (severe) obesity due to excess calories; F11.10 Opioid abuse, uncomplicated; R29.6 Repeated falls; R09.02 Hypoxemia; R40.0 Somnolence; I48.91 Unspecified atrial fibrillation; I11.0 Hypertensive heart disease with heart failure; I25.10 Atherosclerotic heart disease of native coronary artery without angina pectoris; E78.5 Hyperlipidemia, unspecified; Z86.74 Personal history of sudden cardiac arrest; Z95.5 Presence of coronary angioplasty implant and graft; Z96.651 Presence of right artificial knee joint; G47.33 Obstructive sleep apnea (adult) (pediatric); F10.21 Alcohol dependence, in remission
CPT/HCPCS: 36415; 80048; 80053; 82805; 84145; 87637; 93005; 94618; 96374; 99291; C8929; J1650; 70450; 71045; 81003; 83735; 83880; 84443; 84484; 85025; 93010; 94660; 99223; 99239; J1941; J3490

== ENCOUNTER 2022-05-20 05:35 | Inpatient (IN) | payer MEDICAID, SELFPAY ==
[2022-05-20] VITALS (59 sets, daily range): BP systolic 115–167; BP diastolic 58–97; PULSE 60–97; RESP 12–27; TEMP 36.1–37.4; O2SAT 87–95
--- NOTE | 2022-05-20 05:30 | RT.EKG_ITS ---
APPROVED REPORT Exam: Resting ECG Reason for Exam: SOB Patient Location: E HR:80 bpm ECG Measurements Heart Rate 80 AXIS MS 162 P 50 QRSd 97 QRS 32 QT 415 T 92 QTc 482 Conclusion Sinus rhythm...normal P axis, V-rate 60- 99 Probable LVH with secondary repol abnrm...multiple LVH criteria
--- NOTE | 2022-05-20 05:52 | W.ED.GENAD ---
Discharge Plan Discharge Details Chief Complaint: SOB Primary Care Provider: TIKI DOMINGUEZ ED Provider: Vance Wood Home Meds and New Rx's Prescriptions: No Action buspirone 15 mg tablet 15 mg PO BID citalopram 10 mg tablet 20 mg PO DAILY nitroglycerin 0.4 mg tablet, sublingual 0.4 mg sublingual Q5-15M PRN Rx Instructions: do not exceed 3 doses per episode lorazepam 0.5 mg tablet 0.5 mg PO BID metoprolol succinate 25 mg tablet extended release 24 hr 25 mg PO DAILY buprenorphine-naloxone [Suboxone] 8-2 mg Film 1 film sublingual DAILY Rx Instructions: In addition to 2mg-0.5mg film (total daily dose: 10-2.5mg SL daily) trazodone 50 mg tablet 50 mg PO HS PRN isosorbide mononitrate 30 mg Tablet Extended Release 24 Hr 30 mg PO DAILY thiamine HCl (vitamin B1) [Vitamin B-1] 100 mg Tablet 100 mg PO DAILY aspirin 81 mg Tablet,Delayed Release (Dr/Ec) 81 mg PO DAILY multivitamin with iron-mineral Tablet 1 tab PO DAILY gabapentin 300 mg Tablet 300 mg PO TID ranolazine 500 mg Tablet Extended Release 12 Hr 500 mg PO BID atorvastatin 80 mg tablet 80 mg PO DAILY Qty: 30 0RF bumetanide 1 mg tablet 1 mg PO BID Qty: 60 0RF Rx Instructions: @ 0800 & 1200 clopidogrel [Plavix] 75 mg tablet 75 mg PO DAILY Qty: 30 0RF folic acid 1 mg tablet 2 mg PO DAILY Qty: 30 0RF hydralazine 50 mg tablet 50 mg PO TID Qty: 90 0RF losartan 25 mg tablet 25 mg PO DAILY Qty: 30 0RF pantoprazole [Protonix] 40 mg tablet,delayed release (DR/EC) 40 mg PO DAILY Qty: 30 0RF amiodarone 200 mg Tablet 200 mg PO DAILY buprenorphine-naloxone 2-0.5 mg Film 1 film sublingual DAILY Rx Instructions: In addition to 8-2mg film (total daily dose: 10-2.5mg SL daily) Medical Decision Making This is a 51-year-old male who presents from home. He has noticed 4 to 5 days of shortness of breath that is worsened with exertion and associated with lower extremity edema. The patient notes a question of weight gain but does not check his daily weight. He does continue take his previously prescribed medications including bumetanide 1 mg twice daily which he states he increased to 3 times daily the past 2 days. On arrival to the ER the patient has room air oxygenation in the low 80% range. He corrects to mid 90s with 2 L oxygen. Patient has history of coronary artery disease, previous CHF, COPD, obesity. Presentation is most consistent with acute exacerbation of chronic CHF. Patient has known underlying ischemic coronary disease, no further indication for intervention based on his last cardiac catheterization. Patient referred for laboratory testing, chest x-ray and EKG. He has diuresis initiated with 80 mg of IV Lasix. He reports some anxiety, does have daily use of Ativan and was given 0.5 mg of Ativan. Patient's laboratories noted a white count of 12, hematocrit 41, platelets 343. Sodium 133, potassium 3.5, chloride 95, bicarb 35. BUN 11, creatinine 0.9. Troponin is 296. proBNP of 1445. Patient is beginning to improve. Will sign patient out to Dr. Langley pending repeat troponin and anticipation of admission. Please see his final impression. HPI General Mode of arrival: ambulatory. Date/Time Provider Initiated Documentation: 05/20/22 05:39. Limitations to Documentation: no limitations. Information obtained by: patient. History of Present Illness 51 year old M presents to the emergency department with the chief complaint of Shortness of breath for 4-5 days, described as moderate and similar to prior episodes, and is localized to the chest. Patient reports no radiation. Patient started experiencing this day(s) and it has been intermittent. Rest improves symptom(s), Movement worsens symptoms . Patient notes shortness of breath; denies chest pain and syncope. Patient did receive the following treatments prior to arrival, none Related Data Home Medications Medication Instructions Recorded Confirmed amiodarone 200 mg tablet 200 mg PO DAILY 01/06/22 03/31/22 aspirin 81 mg tablet,delayed 81 mg PO DAILY 01/06/22 04/20/22 release atorvastatin 80 mg tablet 80 mg PO DAILY #30 tabs 01/06/22 04/20/22 bumetanide 1 mg tablet 1 mg PO BID #60 tabs 01/06/22 04/20/22 clopidogrel 75 mg tablet (Plavix) 75 mg PO DAILY #30 tabs 09/06/22 12/19/22 folic acid 1 mg tablet 2 mg PO DAILY #30 tabs 01/06/22 04/20/22 gabapentin 300 mg tablet 300 mg PO TID 01/06/22 04/20/22 hydralazine 50 mg tablet 50 mg PO TID #90 tabs 01/06/22 04/20/22 isosorbide mononitrate 30 mg 30 mg PO DAILY 01/06/22 04/20/22 tablet,extended release 24 hr losartan 25 mg tablet 25 mg PO DAILY #30 tabs 01/06/22 04/20/22 multivitamin with iron-mineral 1 tab PO DAILY 01/06/22 04/20/22 pantoprazole 40 mg tablet,delayed 40 mg PO DAILY #30 tabs 01/06/22 04/20/22 release (Protonix) ranolazine 500 mg tablet,extended 500 mg PO BID 01/06/22 04/20/22 release,12 hr thiamine HCl (vitamin B1) 100 mg 100 mg PO DAILY 01/06/22 04/20/22 tablet (Vitamin B-1) buprenorphine 2 mg-naloxone 0.5 mg 1 film sublingual DAILY 01/26/22 04/20/22 sublingual film buspirone 15 mg tablet 15 mg PO BID 03/31/22 04/20/22 citalopram 10 mg tablet 20 mg PO DAILY 03/31/22 04/20/22 nitroglycerin 0.4 mg sublingual 0.4 mg sublingual Q5-15M PRN 03/31/22 04/20/22 tablet buprenorphine 8 mg-naloxone 2 mg 1 film sublingual DAILY 04/20/22 04/20/22 sublingual film (Suboxone) lorazepam 0.5 mg tablet 0.5 mg PO BID 04/20/22 04/20/22 metoprolol succinate 25 mg 25 mg PO DAILY 04/20/22 04/20/22 tablet,extended release 24 hr trazodone 50 mg tablet 50 mg PO HS PRN 04/20/22 04/20/22 Previous Rx's Medication Instructions Recorded atorvastatin 80 mg tablet 80 mg PO DAILY #30 tabs 01/06/22 bumetanide 1 mg tablet 1 mg PO BID #60 tabs 01/06/22 clopidogrel 75 mg tablet (Plavix) 75 mg PO DAILY #30 tabs 01/06/22 folic acid 1 mg tablet 2 mg PO DAILY #30 tabs 01/06/22 hydralazine 50 mg tablet 50 mg PO TID #90 tabs 01/06/22 losartan 25 mg tablet 25 mg PO DAILY #30 tabs 01/06/22 pantoprazole 40 mg tablet,delayed 40 mg PO DAILY #30 tabs 01/06/22 release (Protonix) Allergies Allergy/AdvReac Type Severity Reaction Status Date / Time hydromorphone [From Dilaudid] Allergy Verified 04/20/22 09:17 General Stated Complaint: SOB GLADIS: 3 Review of Systems Narrative: States he is taking his medications. No upper respiratory illness. Denies chest pain. 8 systems were reviewed [facility] All Active Problems Ischemic cardiomyopathy (Acute) Afib (Chronic) Tobacco use disorder (Acute) Hx of hyperlipidemia (Acute) HTN (hypertension) (Chronic) CHF (congestive heart failure) (Chronic) CAD (coronary artery disease) (Chronic) Medical History Alcohol use disorder, severe, dependence [facility] 01/21 Cardiac arrest COPD (chronic obstructive pulmonary disease) Dental infection Drug dependence ETOH abuse Exertional chest pain HLD (hyperlipidemia) Homelessness Morbid obesity Pacemaker Surgical History AICD (automatic cardioverter/defibrillator) present placed at [facility] for ischemic dilated cardiomyopathy Medrosangela Robles DR 01/27/21 RH History of coronary artery stent placement History of hernia repair History of right knee joint replacement History of tonsillectomy Social History Smoking/Tobacco Use Status: Current-Occasional Tobacco Type: cigarettes Smoking risk assessment performed?: Yes Alcohol Intake: former Year quit: 2020 Details: Former heavy alcohol use. Drug use: Current Sobriety Substance use type: former substance user, marijuana and prescription drug Do you feel safe at home: Yes Do you feel safe in your relationship?: Yes Exam Narrative Exam Narrative: GEN: awake, alert, oriented 3. Pleasant, well groomed, interactive. HEAD: Normocephalic, atraumatic ENT: Mucous membranes moist, oropharynx unremarkable, External ear exam unremarkable EYES: PERRL, EOMI NECK: Full ROM, no LEAH, no menigismus CHEST/RESP: Nontender, basilar rhonchi bilaterally CARDIOVASCULAR: Distant, RRR, no murmur, rub moira. 2+ Rad pulse bilateral ABDOMEN: Soft, nontender, no mass. +Bowel sounds EXT: Full ROM, 2-3+ symmetric lower extremity edema Neuro: Grossly normal neurologic exam, conversant, interactive. Psych: Speech fluent, thoughts congruent, affect normal Course Vital Signs Vital signs: Vital Signs Temperature 36.7 C 05/20/22 05:40 Pulse 85 05/20/22 05:40 Respiratory Rate 20 05/20/22 05:40 Blood Pressure 164/82 H 05/20/22 05:40 Temperature 36.7 C 05/20/22 05:40 Pulse 85 05/20/22 05:40 Respiratory Rate 20 05/20/22 05:40 Respiratory Effort Labored 05/20/22 05:46 Respiratory Pattern Normal 05/20/22 05:46 Blood Pressure 164/82 H 05/20/22 05:40 Blood Pressure Position Sitting 05/20/22 05:40 Oxygen Delivery Method Nasal Cannula 05/20/22 05:40 Oxygen Flow Rate 2 05/20/22 05:40 Pain Level 0 05/20/22 05:40 Sign Out Sign Out Data: Sign Out Comment: CHF exacerbation. Repeat troponin and probable admission Last updated by Vance Wood MD at 05/20/22 07:05
--- NOTE | 2022-05-20 06:00 | DI.RAD_ITS ---
Exam(s) XR CHEST 2V PA LATERAL EXAM: XR CHEST 2V PA LATERAL CLINICAL HISTORY: SOB, hx CHF. TECHNIQUE: 2D digital imaging was performed. COMPARISON: CR XR CHEST 1V IN DI DEPT from 04/20/2022 FINDINGS: 2 views: Bipolar left subclavian pacemaker is again noted. Heart size is unchanged. Mediastinum not widened. There are nodular infiltrates in the right lung now evident. Similar findings are not seen on the le ft side. There are no obvious pleural effusions. IMPRESSION: Right-sided nodular infiltrates.. Both infectious and neoplastic etiologies are main considerations here. Recommend CT scan. DATA REPOSITORY: RADIATION DOSE DELIVERED:
[2022-05-20 06:01] LABS: Abs Immature Grans 0.07 10^3/uL (0.0-0.06); Absolute Basophil Count 0.09 10^3/uL (0.0-0.2); Absolute Monocyte Count 1.18 10^3/uL (0.1-0.8); Basophils % 0.7; Eosinophils % 3.9; HCT 41.1 % (40.0-50.0); HGB 13.2 g/dL (13.5-17.5); Immature Grans % 0.5; Lymphocytes % 18.1; MCH 30.6 pg (27.0-33.0); MCHC 32.1 % (32.0-36.0); MCV 95 fL (80-95); MPV 8.6 fL (8.0-11.0); Monocytes % 9.2; Neutrophils % 67.6; Nucleated RBC 0.2 % (0.0-0.3); Platelet Count 343 10^3/uL (130-400); RBC 4.31 10^6/uL (4.36-5.78); RDW 13.9 % (11.8-14.1); RDW-SD 48.8 fL; WBC 12.79 10^3/uL (4.4-10.8)
[2022-05-20 06:05] LABS: Absolute Lymphocyte Count 2.31 10^3/uL (1.2-3.4); Absolute Neutrophil Count 8.65 10^3/uL (1.2-6.7)
[2022-05-20] MEDS: Furosemide 100 MG/10 ML VIAL 80 MG IVP ×2 (06:05→14:39)
[2022-05-20 06:25] LABS: ALT 22 U/L (16-63); AST 16 U/L (15-37); Albumin 3.3 g/dL (3.4-5.0); Alkaline Phosphatase 102 U/L (46-116); Anion Gap 2.1 mmol/L (3-11); BUN 11 mg/dL (7-18); Bilirubin, Total 0.7 mg/dL (0.2-1.0); CO2 35.9 mmol/L (21.0-32.0); CREATININE 0.9 mg/dL (0.70-1.30); Calcium 9.1 mg/dL (8.5-10.1); Chloride 95 mmol/L (98-107); Estimated GFR 102.12 (mL/min/1.73m2); Glucose 161 mg/dL (74-106); NT-proBNP 1445 pg/mL (<300); Potassium 3.5 mmol/L (3.5-5.1); Sodium 133 mmol/L (136-145); Total Protein 7.8 g/dL (6.4-8.2)
[2022-05-20 06:29] LABS: Troponin I 296 ng/L (<or=60)
[2022-05-20] MEDS: Aspirin 325 MG TAB PO (06:38)
[2022-05-20] MEDS: LORazepam 2 MG/ML VIAL 0.5 MG IVP (06:38)
[2022-05-20 06:46] LABS: COVID-19 PCR Negative (Negative); Influenza A PCR Negative (Negative); Influenza B PCR Negative (Negative); RSV PCR Negative (Negative)
[2022-05-20 06:48] LABS: Source Nasopharynx
--- NOTE | 2022-05-20 07:31 | DI.VRAD_ITS ---
PROCEDURE INFORMATION: Exam: XR Chest Exam date and time: 05/20/2022 6:50 AM Age: 51 years old Clinical indication: Shortness of breath; Prior surgery; Surgery date: 6+ months; Surgery type: Pacemaker; Patient HX: SOB, HX chf TECHNIQUE: Imaging protocol: Radiologic exam of the chest. Views: 2 views. COMPARISON: CR XR CHEST 1V IN DI DEPT 04/20/2022 10:32 AM FINDINGS: Tubes, catheters and devices: Cardiac pacing device. Lungs: Multifocal parenchymal opacities in both lungs right greater than left. Pleural spaces: No pleural effusion seen. Heart/Mediastinum: Cardiac silhouette not enlarged allowing for technique. Bones/joints: Degenerative changes in the spine. IMPRESSION: Bilateral pulmonary parenchymal opacities, suspicious for pneumonia. There could be a component of edema as well. Nodules or neoplasm cannot be excluded. Follow-up as clinically warranted. Dictated and Authenticated by: Anai Crawford MD. Ordering:MARILIA Woodard MD
[2022-05-20 08:30] LABS: Troponin I 322 ng/L (<or=60)
--- NOTE | 2022-05-20 09:00 | NUR.NOTE ---
Nursing Note: Accessed chart to determine orders for EKG and to determine whether or not one needs to be cancelled.
--- NOTE | 2022-05-20 09:13 | ED.PROG_ITS ---
Date of service: 05/20/22 Time of Service: 09:13 Medical Decision Making pt signed out to me pending damien troponin which is minimally elevated compared to the first troponin. Pt stable, has been making urine. Still requiring oxygen. Xray read as possible pneumonia but has no cough or fevers, discussed with hosp italist who accepts for admission and requests procalcitonin to determine if antibiotics indicated. Sign Out Sign Out Data: Sign Out Comment: CHF exacerbation. Repeat troponin and probable admission Last updated by Vance Wood MD at 05/20/22 07:05 Discharge Plan Disposition Patient Disposition: Admit to [facility] Condition: Stable Discharge Details Chief Complaint: SOB Clinical Impression: CHF (congestive heart failure) Primary Care Provider: TIKI DOMINGUEZ ED Provider: Giovani Langley [place] Meds and New Rx's Prescriptions: No Action buspirone 15 mg tablet 15 mg PO BID citalopram 10 mg tablet 20 mg PO DAILY nitroglycerin 0.4 mg tablet, sublingual 0.4 mg sublingual Q5-15M PRN Rx Instructions: do not exceed 3 doses per episode lorazepam 0.5 mg tablet 0.5 mg PO BID metoprolol succinate 25 mg tablet extended release 24 hr 25 mg PO DAILY buprenorphine-naloxone [Suboxone] 8-2 mg Film 1 film sublingual DAILY Rx Instructions: In addition to 2mg-0.5mg film (total daily dose: 10-2.5mg SL daily) trazodone 50 mg tablet 50 mg PO HS PRN isosorbide mononitrate 30 mg Tablet Extended Release 24 Hr 30 mg PO DAILY thiamine HCl (vitamin B1) [Vitamin B-1] 100 mg Tablet 100 mg PO DAILY aspirin 81 mg Tablet,Delayed Release (Dr/Ec) 81 mg PO DAILY multivitamin with iron-mineral Tablet 1 tab PO DAILY gabapentin 300 mg Tablet 300 mg PO TID ranolazine 500 mg Tablet Extended Release 12 Hr 500 mg PO BID atorvastatin 80 mg tablet 80 mg PO DAILY Qty: 30 0RF bumetanide 1 mg tablet 1 mg PO BID Qty: 60 0RF Rx Instructions: @ 0800 & 1200 clopidogrel [Plavix] 75 mg tablet 75 mg PO DAILY Qty: 30 0RF folic acid 1 mg tablet 2 mg PO DAILY Qty: 30 0RF hydralazine 50 mg tablet 50 mg PO TID Qty: 90 0RF losartan 25 mg tablet 25 mg PO DAILY Qty: 30 0RF pantoprazole [Protonix] 40 mg tablet,delayed release (DR/EC) 40 mg PO DAILY Qty: 30 0RF amiodarone 200 mg Tablet 200 mg PO DAILY buprenorphine-naloxone 2-0.5 mg Film 1 film sublingual DAILY Rx Instructions: In addition to 8-2mg film (total daily dose: 10-2.5mg SL daily)
[2022-05-20 10:10] LABS: Procalcitonin < 0.1 ng/mL
--- NOTE | 2022-05-20 13:31 | W.PM.HP.N ---
Date of service: 05/20/22 Time of Service: 13:32 Assessment and Plan Assessment and plan (1) Acute on chronic heart failure with reduced ejection fraction and diastolic dysfunction: Status: Acute Assessment and plan: Continue IV Lasix 80 mg IV every 12 hours, add spironolactone. Continue his home regimen of losartan, hydralazine, isosorbide mononitrate, metoprolol. Check a follow-up echocardiogram in the morning. Continue to trend his troponin levels. For not getting adequate response from IV Lasix pushes and we will put him on a Lasix drip. Will consult w/ cardiology in the a.m. for continuity of care. Patient is established w/ Dr. Reese. Professional time spent interviewing and examining patient, discussion of goals of care with hospital team (care management, nursing and consulting professionals) was 60 minutes. (2) Ischemic cardiomyopathy: Status: Acute Assessment and plan: As above (3) HTN (hypertension): Status: Chronic Assessment and plan: As above (4) CAD (coronary artery disease): Status: Chronic Assessment and plan: continue Ranexa and Imdur (5) Pulmonary nodules: Status: Suspected Assessment and plan: will repeat his CXR once he is diuresed and arrange CT scan of his chest once he is euvolemic. History of Present Illness History of Present Illness Chief Complaint: dyspnea Narrative: 51-year-old male with history of coronary artery disease and ischemic cardiomyopathy, LVEF reported 60 to 65% as of 04/20/2022 although previously diagnosed with an EF 40 to 45%, multiple previous PCI's with at least 7 drug-eluting stents with his last cardiac catheterization in January 2021 after V. fib arrest he had an implanted defibrillator ([employer]) and has been on long-term amiodarone as cardiac cath at that time showed in-stent restenosis of at least 4 stents none of which were amenable to percutaneous intervention and he reportedly was a poor candidate for CABG due to poor target vessels. Patient presents emergency department with 5-day history of increasing dyspnea not associated with any cough or sputum production or fever chills has had progressive bilateral leg edema. He denies any chest pain or pressure. Evaluation in the ER included routine labs chest x-ray and EKG. CMP was fairly unremarkable his troponin on admission was elevated at 296 with a 3-hour troponin of 322. His proBNP was 1445 pg/mL. Procalcitonin level is normal at less than 0.1 CBC demonstrated mild leukocytosis of 12,700 with no anemia. Chest x-ray was read by [facility] as showing bilateral pulmonary parenchymal opacities suspicious for pneumonia but a component of pulmonary edema cannot be excluded and nodules or neoplasm could not be excluded. Reading by in-house radiologist was interpreted as showing bipolar left subclavian pacemaker right sided nodular infiltrates for which both infectious and neoplastic etiologies remain considerations. No pleural effusions were seen. Similar nodular findings were seen on the left side. My independent interpretation as well as that of Dr. Langley's was that this looks like pulmonary edema. His EKG demonstrated sinus rhythm with ventricular rate of 80 bpm with LVH with secondary repolarization ST changes particularly noted in the lateral leads limb lead I and aVL as well as V4 through V6. He has inferior Q waves that are unchanged from prior ECGs. Treatment emergency department included 80 mg of Lasix IV push and was put on supplemental oxygen. He is now admitted to the medical/surgical floor for treatment of acute exacerbation of chronic heart failure with reduced ejection fraction and ischemic cardiomyopathy. Serial troponins will be monitored patient will continue to receive IV Lasix and we will work on goal-directed CHF therapy. Of note patient is already on a pretty good regimen with beta-blockers, long-acting nitrates, loop diuretics, statins as well as hydralazine. Once he is adequately diuresed we may consider adding spironolactone and Jardiance. Review of Systems All systems reviewed & are unremarkable except as noted in HPI and below Constitutional Constitutional: Reports as per HPI Cardiovascular Cardiovascular: Reports as per HPI, Denies chest pain, Reports leg edema, Reports dyspnea and Reports dyspnea on exertion Respiratory Respiratory: Reports as per HPI, Denies cough, Denies hemoptysis, Reports excessive phlegm production, Reports dyspnea and Reports dyspnea on exertion Gastrointestinal Gastrointestinal: Reports as per HPI Genitourinary Genitourinary: Reports system reviewed and no additional complaints, except as documented Musculoskeletal Musculoskeletal: Reports system reviewed and no additional complaints, except as documented Integumentary/Breasts Skin/Breast: Reports system reviewed and no additional complaints, except as documented Neurologic Neurologic: Reports system reviewed and no additional complaints, except as documented Psychiatric Psychiatric: Reports system reviewed and no additional complaints, except as documented Endocrine Endocrine: Reports system reviewed and no additional complaints, except as documented Hematologic/Lymphatic Hematologic/Lymphatic: Reports system reviewed and no additional complaints, except as documented Allergic/Immunologic Allergic/Immunologic: Reports system reviewed and no additional complaints, except as documented PFSH All Active Problems (Updated 05/20/22 @ 16:54 by Bola Coombs MD) Acute on chronic heart failure with reduced ejection fraction and diastolic dysfunction (Acute) Ischemic cardiomyopathy (Acute) Afib (Chronic) Tobacco use disorder (Acute) Hx of hyperlipidemia (Acute) HTN (hypertension) (Chronic) CHF (congestive heart failure) (Chronic) CAD (coronary artery disease) (Chronic) Medical History Alcohol use disorder, severe, dependence [facility] 01/21 Cardiac arrest COPD (chronic obstructive pulmonary disease) Dental infection Drug dependence ETOH abuse Exertional chest pain HLD (hyperlipidemia) Homelessness Morbid obesity Pacemaker Surgical History AICD (automatic cardioverter/defibrillator) present placed at [facility] for ischemic dilated cardiomyopathy [facility] [address] DR 01/27/21 History of coronary artery stent placement History of hernia repair History of right knee joint replacement History of tonsillectomy Social History Smoking/Tobacco Use Status: Current-Occasional Tobacco Type: cigarettes Smoking risk assessment performed?: Yes Alcohol Intake: former Year quit: 2020 Details: Former heavy alcohol use. Drug use: Current Sobriety Substance use type: former substance user, marijuana and prescription drug Do you feel safe at home: Yes Do you feel safe in your relationship?: Yes Meds Allergies and Home Medications Allergies Allergy/AdvReac Type Severity Reaction Status Date / Time hydromorphone [From Dilaudid] Allergy Verified 04/20/22 09:17 Home Medications Medication Instructions Recorded Confirmed Type amiodarone 200 mg tablet 200 mg PO DAILY 01/06/22 05/20/22 History aspirin 81 mg tablet,delayed 81 mg PO DAILY 01/06/22 05/20/22 History release atorvastatin 80 mg tablet 80 mg PO DAILY #30 tabs 01/06/22 05/20/22 Rx bumetanide 1 mg tablet 1 mg PO BID #60 tabs 01/06/22 05/20/22 Rx clopidogrel 75 mg tablet (Plavix) 75 mg PO DAILY #30 tabs 01/06/22 05/20/22 Rx folic acid 1 mg tablet 2 mg PO DAILY #30 tabs 01/06/22 05/20/22 Rx gabapentin 300 mg tablet 300 mg PO TID 01/06/22 05/20/22 History hydralazine 50 mg tablet 50 mg PO TID #90 tabs 01/06/22 05/20/22 Rx isosorbide mononitrate 30 mg 30 mg PO DAILY 01/06/22 05/20/22 History tablet,extended release 24 hr losartan 25 mg tablet 25 mg PO DAILY #30 tabs 01/06/22 05/20/22 Rx multivitamin with iron-mineral 1 tab PO DAILY 01/06/22 05/20/22 History pantoprazole 40 mg tablet,delayed 40 mg PO DAILY #30 tabs 01/06/22 05/20/22 Rx release (Protonix) ranolazine 500 mg tablet,extended 500 mg PO BID 01/06/22 05/20/22 History release,12 hr thiamine HCl (vitamin B1) 100 mg 100 mg PO DAILY 01/06/22 05/20/22 History tablet (Vitamin B-1) buprenorphine 2 mg-naloxone 0.5 mg 1 film sublingual DAILY 01/26/22 05/20/22 History sublingual film buspirone 15 mg tablet 15 mg PO BID 03/31/22 05/20/22 History citalopram 10 mg tablet 20 mg PO DAILY 03/31/22 05/20/22 History nitroglycerin 0.4 mg sublingual 0.4 mg sublingual Q5-15M PRN 03/31/22 05/20/22 History tablet buprenorphine 8 mg-naloxone 2 mg 1 film sublingual DAILY 04/20/22 05/20/22 History sublingual film (Suboxone) lorazepam 0.5 mg tablet 0.5 mg PO BID 04/20/22 05/20/22 History metoprolol succinate 25 mg 25 mg PO DAILY 04/20/22 05/20/22 History tablet,extended release 24 hr trazodone 50 mg tablet 50 mg PO HS PRN 04/20/22 05/20/22 History Exam Narrative Exam Narrative: Morbidly obese white male lying in bed appears to be in no acute respiratory distress is slightly lethargic but he does wake up easily answers questions appropriately he is oriented person place time circumstance. HEENT is unremarkable Neck is obese difficult to discern JVD he has normal carotid pulses no bruits Lungs with diffuse bilateral rales from the bases to usp up his chest on both sides. Heart is regular I do not appreciate a murmur or rub or gallop. No palpable thrill. No heave. Abdomen obese soft nontender no bruits no palpable organomegaly Extremities 2+ borderline 3+ pitting edema of his feet ankles and pretibial surfaces to just below his knees. Pedal pulses are intact Neuro exam grossly intact no focal cranial nerve deficits no focal motor or sensory deficits speech is clear and coherent extraocular motions intact. Results Imaging Chest x-ray: image reviewed EKG: image reviewed Labs Result diagrams: 05/20/22 05:54 05/20/22 13:58 Labs: Laboratory Results - last 24 hr 05/20/22 05/20/22 05/20/22 05:54 05:54 06:03 WBC 12.79 H RBC 4.31 L Hgb 13.2 L Hct 41.1 MCV 95 MCH 30.6 MCHC 32.1 RDW 13.9 Plt Count 343 MPV 8.6 Immature Gran % 0.5 Neutrophils % 67.6 Lymphocytes % 18.1 Monocytes % 9.2 Eosinophils % 3.9 Basophils % 0.7 Nucleated RBC % 0.2 Absolute Neutrophils 8.65 H Absolute Lymphocytes 2.31 Absolute Monocytes 1.18 H Absolute Eosinophils 0.50 Absolute Basophils 0.09 Sodium 133 L Potassium 3.5 Chloride 95 L Carbon Dioxide 35.9 H Anion Gap 2.1 L BUN 11 Creatinine 0.9 Est GFR (CKD-EPI 2020) 102.12 Glucose 161 H Calcium 9.1 Magnesium 2.0 Total Bilirubin 0.7 AST 16 ALT 22 Alkaline Phosphatase 102 Troponin I 296 H* NT-Pro-B Natriuret Pep 1445 H Total Protein 7.8 Albumin 3.3 L Procalcitonin COVID-19 Source Nasopharynx SARS-CoV-2 (PCR) Negative Influenza Type A (PCR) Negative Influenza Type B (PCR) Negative RSV (PCR) Negative 05/20/22 05/20/22 07:59 07:59 WBC RBC Hgb Hct MCV MCH MCHC RDW Plt Count MPV Immature Gran % Neutrophils % Lymphocytes % Monocytes % Eosinophils % Basophils % Nucleated RBC % Absolute Neutrophils Absolute Lymphocytes Absolute Monocytes Absolute Eosinophils Absolute Basophils Sodium Potassium Chloride Carbon Dioxide Anion Gap BUN Creatinine Est GFR (CKD-EPI 2020) Glucose Calcium Magnesium Total Bilirubin AST ALT Alkaline Phosphatase Troponin I 322 H* NT-Pro-B Natriuret Pep Total Protein Albumin Procalcitonin < 0.1 COVID-19 Source SARS-CoV-2 (PCR) Influenza Type A (PCR) Influenza Type B (PCR) RSV (PCR) Last Vital Signs Temp 36.2 C L 05/20/22 12:51 Pulse 66 05/20/22 12:51 Resp 12 05/20/22 12:51 BP 123/83 05/20/22 12:51 Pulse Ox 92 05/20/22 12:51 Time Spent Time spent with Patient: 55-74 minutes Time was spent: preparing to see the patient(eg.review tests), obtaining and/or reviewing separately otained hiistory, ordering medications,tests, procedures, referring, communicating with other health animal daycare provider, indepentently interpreting results, counseling the patient and care coordination
[2022-05-20 14:16] LABS: Anion Gap -3.3 mmol/L (3-11); BUN 12 mg/dL (7-18); CO2 41.3 mmol/L (21.0-32.0); CREATININE 0.8 mg/dL (0.70-1.30); Calcium 8.9 mg/dL (8.5-10.1); Chloride 97 mmol/L (98-107); Estimated GFR 105.82 (mL/min/1.73m2); Glucose 114 mg/dL (74-106); Potassium 3.4 mmol/L (3.5-5.1); Sodium 135 mmol/L (136-145)
[2022-05-20 14:30] LABS: Troponin I 378 ng/L (<or=60)
[2022-05-20] MEDS: Pantoprazole 40 MG TABCR PO (14:35)
[2022-05-20] MEDS: Metoprolol CR 25 MG TABCR PO (14:36)
[2022-05-20] MEDS: Isosorbide Mononitrate 30 MG TABCR PO (14:36)
[2022-05-20] MEDS: Losartan 25 MG TAB PO (14:36)
[2022-05-20] MEDS: Aspirin E.C. 81 MG TABEC PO (14:36)
[2022-05-20] MEDS: Enoxaparin 40 MG/0.4 ML SYR SC (14:37)
[2022-05-20] MEDS: Amiodarone 200 MG TAB PO (14:37)
[2022-05-20] MEDS: Normal Saline Flush 10 ML SYR IVP ×2 (14:39→23:56)
[2022-05-20] MEDS: Buprenorphine/Naloxone 8 mg/2 mg FILM 1 EACH SL (14:40)
[2022-05-20] MEDS: Buprenorphine/Naloxone 2 mg/0.5 mg FILM 1 EACH SL (14:40)
[2022-05-20] MEDS: Gabapentin 300 MG CAP PO ×2 (14:45→21:37)
[2022-05-20] MEDS: hydrALAZINE 25 MG TAB 50 MG PO ×2 (14:45→21:36)
[2022-05-20] MEDS: LORazepam 0.5 MG TAB PO (21:36)
[2022-05-20] MEDS: Atorvastatin 40 MG TAB 80 MG PO (21:36)
[2022-05-20] MEDS: busPIRone 15 MG TAB PO (21:37)
[2022-05-20] MEDS: Ranolazine 500 MG TABCR PO (21:37)
[2022-05-21] VITALS (11 sets, daily range): BP systolic 109–137; BP diastolic 68–83; PULSE 60–77; RESP 18; TEMP 36–36.6; O2SAT 91–95
--- NOTE | 2022-05-21 | DI.US_ITS ---
APPROVED REPORT EXAM: Comprehensive 2D, Doppler, and color-flow Echocardiogram Patient Location: In-Patient Room/Bed: 231 Tool Room Lathe Operator: Erin Puri RDCS (AE) Indications: Acute on chronic heart failure, Limited echo for function Other Information Study Quality: Fair. Technically limited study due to body habitus echo done bedside supine. Conclusion It was a limited echocardiogram to reassess LV function Left ventricle is top normal in size, normal wall thickness, EF 60%. No segmental wall motion abnorm alities are identified LV function is similar to previous Wall motion Left Ventricle The left ventricular systolic function is normal. The left ventricular ejection fraction is within th e normal range. There is normal LV segmental wall motion. LVEF is 60%. 2D Dimensions LVEF (Singletary's) 60.85 % M: 52 - 72 LV Vol A2C d MOD 206.4 mL LV Volume 132.39 mL M: 62 - 150 LV Vol A4C d MOD 170.3 mL LV Volume Index 49.95 mL/m2 M: 34 - 74 LV EF A4C MOD 59.9 % LV Vol Biplane MOD 192.3 mL LV EF A2C MOD 60.0 % LV EF Biplane MOD 60.9 % SV 117.00 mL SV Index 44.13 mL/m2
[2022-05-21 07:05] LABS: Abs Immature Grans 0.04 10^3/uL (0.0-0.06); Absolute Basophil Count 0.08 10^3/uL (0.0-0.2); Absolute Eosinophil Count 0.72 10^3/uL (0.0-0.7); Absolute Lymphocyte Count 2.24 10^3/uL (1.2-3.4); Absolute Monocyte Count 1.05 10^3/uL (0.1-0.8); Absolute Neutrophil Count 5.77 10^3/uL (1.2-6.7); Basophils % 0.8; Eosinophils % 7.3; HGB 12.4 g/dL (13.5-17.5); Immature Grans % 0.4; Lymphocytes % 22.6; MCH 29.7 pg (27.0-33.0); MCV 96 fL (80-95); MPV 8.8 fL (8.0-11.0); Monocytes % 10.6; Neutrophils % 58.3; Platelet Count 337 10^3/uL (130-400); RBC 4.17 10^6/uL (4.36-5.78); RDW 14.1 % (11.8-14.1); RDW-SD 49.1 fL
[2022-05-21 07:30] LABS: Anion Gap 1.1 mmol/L (3-11); BUN 13 mg/dL (7-18); CO2 40.9 mmol/L (21.0-32.0); CREATININE 0.8 mg/dL (0.70-1.30); Calcium 9.3 mg/dL (8.5-10.1); Chloride 98 mmol/L (98-107); Estimated GFR 105.82 (mL/min/1.73m2); Glucose 118 mg/dL (74-106); Magnesium 2.2 mg/dL (1.8-2.4); Potassium 3.7 mmol/L (3.5-5.1); Sodium 140 mmol/L (136-145)
[2022-05-21 07:36] LABS: Troponin I 349 ng/L (<or=60)
[2022-05-21] MEDS: Ranolazine 500 MG TABCR PO (08:26)
[2022-05-21] MEDS: Aspirin E.C. 81 MG TABEC PO (08:26)
[2022-05-21] MEDS: Citalopram 20 MG TAB PO (08:26)
[2022-05-21] MEDS: Thiamine 100 MG TAB PO (08:26)
[2022-05-21] MEDS: Gabapentin 300 MG CAP PO ×2 (08:26→13:41)
[2022-05-21] MEDS: Isosorbide Mononitrate 30 MG TABCR PO (08:27)
[2022-05-21] MEDS: Multivitamin w/Minerals TAB 1 TAB PO (08:27)
[2022-05-21] MEDS: Folic Acid 1 MG TAB 2 MG PO (08:27)
[2022-05-21] MEDS: hydrALAZINE 25 MG TAB 50 MG PO ×2 (08:27→13:41)
[2022-05-21] MEDS: LORazepam 0.5 MG TAB PO (08:27)
[2022-05-21] MEDS: Spironolactone 25 MG TAB PO (08:27)
[2022-05-21] MEDS: Losartan 25 MG TAB PO (08:27)
[2022-05-21] MEDS: Metoprolol CR 25 MG TABCR PO (08:27)
[2022-05-21] MEDS: busPIRone 15 MG TAB PO (08:28)
[2022-05-21] MEDS: Pantoprazole 40 MG TABCR PO (08:28)
[2022-05-21] MEDS: Amiodarone 200 MG TAB PO (08:28)
[2022-05-21] MEDS: Clopidogrel 75 MG TAB PO (08:28)
[2022-05-21] MEDS: Buprenorphine/Naloxone 2 mg/0.5 mg FILM 1 EACH SL (08:34)
[2022-05-21] MEDS: Buprenorphine/Naloxone 8 mg/2 mg FILM 1 EACH SL (08:34)
[2022-05-21] MEDS: Bumetanide 1 MG TAB 2 MG PO (08:34)
--- NOTE | 2022-05-21 14:38 | DSE_ITS ---
Date of service: 05/21/22 Time of Service: 14:38 DS: Diagnosis Discharge Diagnosis (1) Acute on chronic heart failure with reduced ejection fraction and diastolic dysfunction: Status: Acute Asessment and Plan: Luis is a 51-year-old male with history of coronary artery disease and ischemic cardiomyopathy with last reported LVEF at 60 to 65% as of 04/20/2022 although previous to that his EF had been 40 to 45% with a history of multiple PCI's with at least 7 drug-eluting stents but his last cardiac catheterization January 2021 after V. fib arrest he underwent implanted defibrillator and was found to have 4 stents that showed in-stent restenosis. He was noted candidate for coronary artery bypass graft due to poor target vessels and now the stents were amenable to percutaneous intervention. He presented the emergency department with increasing bilateral leg edema worsening dyspnea PND orthopnea but no chest pain or pressure. Chest x-ray on admission suggested right lower lobe pulmonary nodules admission labs showed elevated white count 12,790 which normalized to 9900 the next day without any intervention. His proBNP was elevated at 1445 pg/mL and his troponin I level was elevated at 296 ng/L and peaked at 378 for dropping down to 349 at the time of his discharge. BUN and creatinine were normal at 12 and 0.8 and remained normal at discharge. Patient was aggressively treated with IV diuretics including Lasix 80 mg IV every 12 hours he was kept on his usual goal-directed therapy for his heart failure including his losartan, spironolactone, metoprolol succinate, hydralazine, and was kept on his dual antiplatelet therapy with Plavix and aspirin. He was kept on his antiarrhythmic amiodarone. Patient diuresed 4300 mL overnight and felt markedly improved and was able to be weaned off of oxygen. Patient was insisting on leaving the hospital even though I felt medically he would benefit from another day of adjustment of his diuretics. Patient was counseled on improving his diet as the patient is not careful about his sodium intake although he does not add salt to his diet he does eat a lot of processed foods including processed meats and cheeses that are high in sodium. We talked about the importance of him following up with his tray casting machine operator and weigh himself daily and reporting any significant weight gain of 2 pounds or more per day. Patient states he is compl iant with his medications and he indicated that he will follow-up with his tray casting machine operator. Condition on discharge markedly improved. Currently hemodynamically stable. (2) Ischemic cardiomyopathy: Status: Chronic (3) HTN (hypertension): Status: Chronic (4) CAD (coronary artery disease): Status: Chronic Asessment and Plan: History of previous heart attacks and multiple coronary stents including at least 7 drug-eluting stents. Last cardiac catheterization from January 2022 showed at least 4 stents had restenosed and he was not a candidate for any new stenting or coronary artery bypass graft. Currently on aggressive med treatment including Ranexa and Imdur as well as beta-blockers Gustavo and dual antiplatelet therapy. (5) Pulmonary nodules: Status: Suspected Asessment and Plan: Patient was made aware of the radiologic findings suspicious for nodular infiltrates in the right lung and the need for follow-up CT scan of his chest in the next week. Orders are written for the CT scan. Patient understands that these could represent a malignancy although it also could be secondary changes from his acute congestive failure hence the need for repeat radiologic study now that he is adequately diuresed. Discharge Plan Disposition Patient Disposition: Home Condition: Improving Discharge Details Reason For Visit: CHF Exacerbation Admit Date/Time: 05/20/22 09:15 Admit Provider: Bola Coombs Attending Provider: Bola Coombs Primary Care Provider: TIKI DOMINGUEZ Home Meds and New Rx's Prescriptions: New spironolactone [Aldactone] 50 mg tablet 25 mg PO DAILY Qty: 30 0RF Continued buspirone 15 mg tablet 15 mg PO BID citalopram 10 mg tablet 20 mg PO DAILY nitroglycerin 0.4 mg tablet, sublingual 0.4 mg sublingual Q5-15M PRN Rx Instructions: do not exceed 3 doses per episode lorazepam 0.5 mg tablet 0.5 mg PO BID metoprolol succinate 25 mg tablet extended release 24 hr 25 mg PO DAILY buprenorphine-naloxone [Suboxone] 8-2 mg Film 1 film sublingual DAILY Rx Instructions: In addition to 2mg-0.5mg film (total daily dose: 10-2.5mg SL daily) trazodone 50 mg tablet 50 mg PO HS PRN isosorbide mononitrate 30 mg Tablet Extended Release 24 Hr 30 mg PO DAILY thiamine HCl (vitamin B1) [Vitamin B-1] 100 mg Tablet 100 mg PO DAILY aspirin 81 mg Tablet,Delayed Release (Dr/Ec) 81 mg PO DAILY multivitamin with iron-mineral Tablet 1 tab PO DAILY gabapentin 300 mg Tablet 300 mg PO TID ranolazine 500 mg Tablet Extended Release 12 Hr 500 mg PO BID atorvastatin 80 mg tablet 80 mg PO DAILY Qty: 30 0RF clopidogrel [Plavix] 75 mg tablet 75 mg PO DAILY Qty: 30 0RF folic acid 1 mg tablet 2 mg PO DAILY Qty: 30 0RF hydralazine 50 mg tablet 50 mg PO TID Qty: 90 0RF losartan 25 mg tablet 25 mg PO DAILY Qty: 30 0RF pantoprazole [Protonix] 40 mg tablet,delayed release (DR/EC) 40 mg PO DAILY Qty: 30 0RF amiodarone 200 mg Tablet 200 mg PO DAILY buprenorphine-naloxone 2-0.5 mg Film 1 film sublingual DAILY Rx Instructions: In addition to 8-2mg film (total daily dose: 10-2.5mg SL daily) Changed bumetanide 1 mg tablet 2 mg PO BID Qty: 60 0RF Rx Instructions: @ 0800 & 1200 Discharge Instructions Instructions: Spironolactone (By mouth), Heart Failure (DC), Low-Sodium Diet (DC), Pulmonary Nodules (DC) Additional Instructions: Your chest xray was read by the radiologist as showing right sided lung nodules. You should get a follow up CT scan in a week and go over these finding w/ your PCP. You have been prescribed and additional diuretic, spironolactone which you should take as prescribed and you should have repeat labs within one week to monitor your kidney function and your electrolytes. Please avoid high potassium and high sodium foods. High sodium foods can worsen your retention of water and worsen your heart failure. Because you are on losartan and spironolactone, you may retain more potassium, so avoid high potassium foods. Stand Alone Forms: Nursing Discharge Form Referrals: TIKI DOMINGUEZ [Primary Care Provider] - 06/04/22 12:15 pm Talisha Reese MD [ [facility] STAFF PHYSICIAN] - 05/28/22 2:00 pm Activity:: Activity as Tolerated Equipment/Supplies:: No Equipment Needed Diet:: Low Sodium Discharge Orders Discharge Orders: Discharge Order (Routine); Ordered 05/21/22 Ordered By: Bola Coombs Other Ambulatory Orders: Basic Metabolic Panel (Routine) Timeframe: 1 Week Facility: [facility] - Location: Laboratory Outpatient - [facility] Ordered By: Bola Coombs CT chest w (Routine) Timeframe: 1 Week Facility: [facility] - Location: DIAGNOSTIC IMAGING Ordered By: Bola Coombs Discharge Data Discharge Date/Time-TO BE ENTERED AT DEPARTURE: 05/21/22 15:29 DS: Summary Time Spent with Patient providing and/or coordinating discharge services: Greater than 30 minutes Specific discharge activities: Interview/exam of patient; review of discharge instructions, completion of prescriptions/discharge instructions; discussion w/ nursing and CM; documentation of hospital visit Status at Discharge Functional status at discharge: independent ambulation Overall status at discharge: patient is progressing back to baseline Mental Status: mental status grossly normal Speech and Movement: speech and movement normal Mood: congruent mood Affect: normal affect Exam Narrative Exam Narrative: Morbidly obese when male who is alert and oriented per his place time circumstance he is fully dressed has removed his night monitor is ready to leave the hospital whether or not he is officially discharged. I talked with him about why he is so anxious to leave the hospital. Apparently he and his he is now living at a motel and received a large bass settlement and left the bass in the hotel room. He is willing to follow-up with his tray casting machine operator and we will try to arrange for outpatient follow-up with his tray casting machine operator. Overall he feels markedly better in terms of his breathing. He denies any chest pain or pressure. He is not having any acute respiratory distress Lungs clear anteriorly posterior he has bibasilar rales no rhonchi or wheezing Heart is regular Review of his telemetry he is in sinus rhythm with occasional episodes of atrial pacing Legs are edematous but they are not taut there are 2+ pitting edema retirement up the tibia bilaterally. They are nontender to palpation Psych Mental Status: mental status grossly normal Speech and Movement: speech and movement normal Mood: congruent mood Affect: normal affect DS: Data Vitals/I&O Vitals and I&O: Vital Signs Temperature 36.0 C L 05/21/22 11:18 Temperature Source Tympanic 05/21/22 11:18 Pulse 63 05/21/22 11:18 Pulse Rhythm Regular 05/21/22 08:30 Pulse 64 05/20/22 12:01 Respiratory Rate 18 05/21/22 11:18 Respiratory Effort Non-Labored 05/21/22 08:30 Respiratory Depth Normal 05/21/22 08:30 Respiratory Pattern Normal 05/21/22 00:00 Blood Pressure 109/68 05/21/22 11:18 Blood Pressure Mean 86 05/20/22 12:01 Blood Pressure Position Sitting 05/20/22 05:40 Pulse Oximetry 92 05/21/22 13:26 Oxygen Delivery Method Nasal Cannula 05/21/22 13:26 Oxygen Flow Rate 0.5 05/21/22 13:26 Pain Level 0 05/21/22 11:18 Comment 05/21/22 07:58 Intake & Output 05/20/22 05/21/22 05/21/22 23:59 11:59 23:59 Intake Total 250 / 250 100 / 100 Output Total 2975 / 4125 800 / 1200 400 / 1200 Balance -2725 / -3875 -700 / -1100 -400 / -1100 Weight 167.7 kg 164.3 kg Intake: IV 10 / 10 Oral 240 / 240 100 / 100 Output: Urine 2975 / 4125 800 / 1200 400 / 1200 Other: Urine Color Yellow Dark Lashay Straw Urine Appearance Clear Clear Cloudy Urine Odor Normal Comment amount measured at this time. pt was forethinking and poured the urinal into the bucket of the bedside commode for the last couple hours Voiding Methods Urinal Urinal Urinal Data Completed and Pending Completed studies during hospitalization [Text1]: Chest 2 Views dated 05/20/2022 FINDINGS: 2 views: Bipolar left subclavian pacemaker is again noted. Heart size is unchanged.? Mediastinum not widened. There are nodular infiltrates in the right lung now evident.? Similar findings are not seen on the left side.? There are no obvious pleural effusions. IMPRESSION: Right-sided nodular infiltrates..? Both infectious and neoplastic etiologies are main considerations here.? Recommend CT scan. Labs on day of discharge: Labs from last 24 hours 05/21/22 05/21/22 05/21/22 06:25 06:25 06:25 WBC 9.90 RBC 4.17 L Hgb 12.4 L Hct 40.0 MCV 96 H MCH 29.7 MCHC 31.0 L RDW 14.1 Plt Count 337 MPV 8.8 Immature Gran % 0.4 Neutrophils % 58.3 Lymphocytes % 22.6 Monocytes % 10.6 Eosinophils % 7.3 Basophils % 0.8 Nucleated RBC % 0.0 Absolute Neutrophils 5.77 Absolute Lymphocytes 2.24 Absolute Monocytes 1.05 H Absolute Eosinophils 0.72 H Absolute Basophils 0.08 Sodium 140 Potassium 3.7 Chloride 98 Carbon Dioxide 40.9 H Anion Gap 1.1 L BUN 13 Creatinine 0.8 Est GFR (CKD-EPI 2020) 105.82 Glucose 118 H Calcium 9.3 Magnesium 2.2 Cancelled Troponin I 349 H* Cancelled Preliminary micro results at discharge 05/20/22 08:40 Blood Culture - Preliminary Blood NO GROWTH 24 HOURS 05/20/22 08:17 Blood Culture - Preliminary Blood NO GROWTH 24 HOURS PFSH All Active Problems (Updated 05/22/22 @ 14:12 by Bola Coombs MD) Medication monitoring encounter (Acute) Acute on chronic heart failure with reduced ejection fraction and diastolic dysfunction (Acute) Ischemic cardiomyopathy (Chronic) Afib (Chronic) Tobacco use disorder (Acute) Hx of hyperlipidemia (Acute) HTN (hypertension) (Chronic) CHF (congestive heart failure) (Chronic) CAD (coronary artery disease) (Chronic) Medical History Alcohol use disorder, severe, dependence [facility] 01/21 Cardiac arrest COPD (chronic obstructive pulmonary disease) Dental infection Drug dependence ETOH abuse Exertional chest pain HLD (hyperlipidemia) Homelessness Morbid obesity Pacemaker Surgical History AICD (automatic cardioverter/defibrillator) present placed at [facility] for ischemic dilated cardiomyopathy Sruthi Robles DR 01/27/21 RH History of coronary artery stent placement History of hernia repair History of right knee joint replacement History of tonsillectomy Social History Smoking/Tobacco Use Status: Current-Occasional Tobacco Type: cigarettes Smoking risk assessment performed?: Yes Alcohol Intake: former Year quit: 2020 Details: Former heavy alcohol use. Drug use: Current Sobriety Substance use type: former substance user, marijuana and prescription drug Do you feel safe at home: Yes Do you feel safe in your relationship?: Yes Time Spent with Patient Time Spent with Patient: <45 minutes Time was spent: obtaining and/or reviewing separately otained hiistory, ordering medications,tests, procedures, indepentently interpreting results, counseling the patient and care coordination
--- NOTE | 2022-05-21 15:05 | INITIAL_ITS ---
- If Service Date Differs Date of service: 05/21/22 Time of Service: 15:05 Care Management Initial Assess REASON FOR HOSPITALIZATION:: CHF exacerbation PAST MEDICAL HISTORY/PAST SURGICAL HISTORY:: All Active Problems. Acute on chronic heart failure with reduced ejection fraction and diastolic dysfunction (Acute). Ischemic cardiomyopathy (Acute). Afib (Chronic). Tobacco use disorder (Acute). Hx of hyperlipidemia (Acute). HTN (hypertension) (Chronic). CHF (congestive heart failure) (Chronic). CAD (coronary artery disease) (Chronic). Medical History. Alcohol use disorder, severe, dependence. [facility] 01/21. Cardiac arrest. COPD (chronic obstructive pulmonary disease). Dental infection. Drug dependence. ETOH abuse. Exertional chest pain. HLD (hyperlipidemia). Homelessness. Morbid obesity. Pacemaker. Surgical History. AICD (automatic cardioverter/defibrillator) present. placed at [facility] for ischemic dilated cardiomyopathy Medrosangela Robles DR 01/27/21 . History of coronary artery stent placement. History of hernia repair. History of right knee joint replacement. History of tonsillectomy PREVIOUS FUNCTIONAL STATUS/SOCIAL/FAMILY SUPPORTS:: Pramod lives in [place], currently at the [facility], as he is going through a separation. He has two adult children who live out of state. He is currently not employed, due to his medical needs. He is independent at baseline. CURRENT FUNCTIONAL STATUS:: Pramod was sitting up on the edge of the bed when CM met with him. He reported that he is feeling much better today, and would like to return home, if possible. Per report, he was on 3L O2 last night, and has been weaned down to .5L O2. CM discussed his O2 needs as a potential barrier to discharge, as he does not require supplemental O2 at baseline. CM will continue to follow. ADVANCE DIRECTIVES:: Not on file. Has patient been provided with info about the portal/API?: Yes Did the patient sign up for the portal?: No CODE STATUS:: Full Code INSURANCE COVERAGE / FINANCIAL ISSUES:: [employer] CURRENT HOME/COMMUNITY SERVICES/EQUIPMENT:: No known services or equipment. PRIMARY CARE PHYSICIAN:: Gerri Silverman POTENTIAL DISCHARGE NEEDS:: Evaluations for further needs, CHF education, follow up appointments. PATIENT/FAMILY EDUCATION NEEDS:: Review discharge instructions and limitations, discussion of self care needs including ask me three. ANTICIPATED BARRIERS TO DISCHARGE:: O2 requirement. TRANSPORTATION:: Via private vehicle PLAN:: Anticipate Pramod will return home once medically cleared. He will be evaluated to determine his O2 needs. He will drive himself home via private vehicle. He will follow up with his PCP and discharge plan of care. CM will continue to follow.
--- NOTE | 2022-05-21 15:38 | PDOC.CMDIS ---
- If Service Date Differs Date of service: 05/21/22 Time of Service: 15:38 LACE Index Scoring Tool - Questions: Length of Stay (in days): 1 Acuity (Admit via E.D.?): Yes Comorbidities: Previous M.I., Congestive Heart Failure, Chronic Pulmonary Disease E.D. Visits: 6 - Answers: Total Score: 13 Risk of Readmission: High Risk Care Management Discharge Reason for Hospitalization: CHF exacerbation Discharge Plan: Pramod returned home today with no new services. He drove himself home via private vehicle. He will follow up with his PCP and discharge plan of care. He is happy to be going home. Patient/Family Education Needs: Review discharge instructions and limitations, discussion of self care needs including ask me three.
== END 2022-05-21 15:29 | disposition home or self-care (01) | DRG 291 ==
LOC: ER 11:22 → MS 12:50
PROVIDERS: Emergency Medicine; Admitting Provider Internal Medicine; Emergency Provider Emergency Medicine; PCP Nurse Practitioner Family; Visit Provider Internal Medicine
DX: I11.0 Hypertensive heart disease with heart failure (principal); I50.43 Acute on chronic combined systolic (congestive) and diastolic (congestive) heart failure; Z68.43 Body mass index [BMI] 50.0-59.9, adult; T82.855A Stenosis of coronary artery stent, initial encounter; I25.5 Ischemic cardiomyopathy; I25.10 Atherosclerotic heart disease of native coronary artery without angina pectoris; R91.8 Other nonspecific abnormal finding of lung field; Z95.5 Presence of coronary angioplasty implant and graft; Z95.810 Presence of automatic (implantable) cardiac defibrillator; F17.210 Nicotine dependence, cigarettes, uncomplicated; E78.5 Hyperlipidemia, unspecified; E66.01 Morbid (severe) obesity due to excess calories; Z96.651 Presence of right artificial knee joint; Z59.01 Sheltered homelessness
CPT/HCPCS: 36415; 80048; 80053; 84145; 87040; 87637; 93005; 93308; 96374; 96375; 99285; J1650; 71046; 83735; 83880; 84484; 85025; 93010; 99223; 99238; J1940; J2060; J3490

== ENCOUNTER 2022-06-10 02:55 | Outpatient (CLI) | payer MEDICAID, SELFPAY ==
--- NOTE | 2022-06-10 07:07 | DI.CT_ITS ---
Exam(s) CT CHEST WO EXAM: CT CHEST WO CLINICAL HISTORY: rt pulmonary nodule, r91.8. TECHNIQUE: Imaging protocol: Axial computed tomography images were obtained and coronal and sagittal reformatted images were created and reviewed. COMPARISON: CT CT CHEST PE CTA from 02/22/2022 CR,XR XR CHEST 2V PA LATERAL from 05/20/2022 FINDINGS: Tracheobronchial tree: Patent where visualized. Pulmonary parenchyma: There are scattered patchy ground-glass opacities present. The findings are mo st marked in the left lower lobe. There is a pleural-based area of consolidation/opacity measuring 1 .7 x 3 cm in the medial aspect of the left lower lobe. There is a 1.2 cm nodule in the left lower lo be. None of these areas were present on the CT scan from 02/22/2022. No architectural distortion. Mediastinum and Lorraine: No dominant adenopathy or fluid collection. The esophagus is unremarkable. Thyroid gland: Unremarkable. Pleura: No pneumothorax is present. There is mild pleural thickening or tiny effusion in the medial aspect of the left lower lobe. No right pleural effusion is seen. Heart: The heart is not dilated. Moderate coronary artery calcification is present. No pericardial e ffusion. Cardiac pacing wires are in place. Aorta: Thoracic aorta non-dilated. Upper abdomen: Unremarkable. Lymph nodes: Within normal limits. Tubes, Catheters, and Lines: There is a cardiac pacing device in place. Soft tissues: There is mild gynecomastia. Bones:Within normal limits for the patient's age. There are old healed left rib fractures. IMPRESSION: 1. Scattered patchy ground-glass opacities bilaterally, most marked in the left lower lobe. An infec tious or inflammatory process should be considered. 2. Pleural based consolidation/opacity in the medial aspect of the left lower lobe. This may represe nt a rounded atelectasis or pneumonia. This was not present in January 2022. Mass cannot be entirel y excluded. A follow-up examination in 3 months is recommended. PET/CT or tissue sampling can be con sidered for re-evaluation. (Stefan et al, 2017). 3. Please correlate with patient's clinical history. RADIATION DOSE DELIVERED: 917.35mGy.cm Total DLP 917.35mGy.cm Total DLP DATA REPOSITORY: All CT scans at this facility are submitted to the National Radiology Data Registry (NRDR) Dose Index Registry (DIR) with the [employer] (A[employer]). RADIATION OPTIMIZATION: All CT scans at this facility use at least one of these dose optimization te chniques: automated exposure control; mA and/or kV adjustment per patient size (includes targeted exa ms where dose is matched to clinical indication); or iterative reconstruction.
== END 2022-06-10 03:15 ==
LOC: DI 02:55
PROVIDERS: PCP Nurse Practitioner Family; Visit Provider Internal Medicine
DX: R91.8 Other nonspecific abnormal finding of lung field (principal)
CPT/HCPCS: 71250

== ENCOUNTER 2022-06-14 10:13 | Inpatient (IN) | payer MEDICAID, SELFPAY ==
[2022-06-14] VITALS (168 sets, daily range): BP systolic 100–155; BP diastolic 49–100; PULSE 58–100; RESP 7–35; TEMP 36.6–37.1; O2SAT 86–98
--- NOTE | 2022-06-14 10:30 | DI.CT_ITS ---
Exam(s) CT CHEST PE CTA EXAM: CT CHEST PE CTA CLINICAL HISTORY: Shortness of breath. TECHNIQUE: Imaging Protocol: CT angiography of the chest was performed using pulmonary embolus candace col. Multi planar reconstructions were performed. CONTRAST MATERIAL: Intravenous: Omnipaque 350 Contrast volume: 100 cc COMPARISON: CT CT CHEST WO from 06/10/2022 FINDINGS: CHEST: PULMONARY ARTERIES: There are no obvious intraluminal filling defects to suggest acute pulmonary embo li. LUNGS: There is now a small-moderate sized left pleural effusion which was not present 4 days ago and there is increasing nodular infiltrate in the left lower lobe. There is no evidence of infiltrate n or nodules nor pleural effusion on the opposite-right side. No focal findings in the trachea and mil nstem bronchi. MEDIASTINUM: There is adenopathy in the left hilum which is probably reactive. No subcarinal adenopa thy. No adenopathy in the anterior mediastinal fat. Visualized thyroid unremarkable. CARDIAC: Heart size is upper normal. There is no pericardial effusion.Caliber of the thoracic aorta is within normal limits. Cardiac pacemaker wires noted. There is no significant shift of the interve ntricular septum. PARTIALLY VISUALIZED UPPERMOST ABDOMEN: No obvious findings OSSEOUS: No significant osseous lesions.. IMPRESSION: 1. No evidence of acute pulmonary emboli..However, there is increasing nodular infiltrate in the left lower lobe and there is now a small-moderate sized left pleural effusion which was not evident 4 day s ago. These findings require close imaging follow-up to resolution to rule out malignancy. 2. There is some adenopathy in the left hilum which is probably reactive. 3. No significant findings in the opposite-right hemithorax. RADIATION DOSE DELIVERED: 927.23mGy.cm Total DLP DATA REPOSITORY: All CT scans at this facility are submitted to the National Radiology Data Registry (NRDR) Dose Index Registry (DIR) with the [employer] (ACR). RADIATION OPTIMIZATION: All CT scans at this facility use at least one of these dose optimization te chniques: automated exposure control; mA and/or kV adjustment per patient size (includes targeted exa ms where dose is matched to clinical indication); or iterative reconstruction.
--- NOTE | 2022-06-14 10:30 | RT.EKG_ITS ---
APPROVED REPORT Exam: Resting ECG Reason for Exam: Shortness of breath Patient Location: E HR:69 bpm ECG Measurements Heart Rate 69 AXIS DE 167 P 61 QRSd 106 QRS 28 QT 454 T 103 QTc 487 Conclusion Sinus rhythm...normal P axis, V-rate 60- 99 Probable inferior infarct, old...Q>35mS, II III aVF Nonspecific T abnormalities, lateral leads...T <-0.10mV, I aVL V5 V6 Physician: no stemi, q wave in III,no significant change since prior ekg on 05/20/22
[2022-06-14 11:07] LABS: Abs Immature Grans 0.03 10^3/uL (0.0-0.06); Absolute Basophil Count 0.07 10^3/uL (0.0-0.2); Absolute Lymphocyte Count 1.67 10^3/uL (1.2-3.4); Absolute Monocyte Count 0.75 10^3/uL (0.1-0.8); Basophils % 0.7; Eosinophils % 10.6; HCT 41.7 % (40.0-50.0); HGB 12.9 g/dL (13.5-17.5); Immature Grans % 0.3; Lymphocytes % 17.7; MCH 29.3 pg (27.0-33.0); MCHC 30.9 % (32.0-36.0); MCV 95 fL (80-95); MPV 8.8 fL (8.0-11.0); Neutrophils % 62.7; Platelet Count 302 10^3/uL (130-400); RDW 13.5 % (11.8-14.1); RDW-SD 46.6 fL; WBC 9.42 10^3/uL (4.4-10.8)
--- NOTE | 2022-06-14 11:13 | W.ED.GENAD ---
Discharge Plan Disposition Condition: Improving Discharge Details Chief Complaint: SOB Admit Date/Time: 06/14/22 16:41 Admit Provider: Tanja Gaines Attending Provider: Tanja Gaines Primary Care Provider: TIKI DOMINGUEZ ED Provider: Mary Hankins Discharge Instructions Activity:: Activity as Tolerated Equipment/Supplies:: No Equipment Needed Diet:: As Tolerated Discharge Orders Discharge Orders: Discharge Order (Routine); Ordered 06/17/22 Ordered By: Mallory Booth Discharge Data Discharge Date/Time-TO BE ENTERED AT DEPARTURE: 06/16/22 15:44 Medical Decision Making Patient presenting to the emergency department for chief complaint of shortness of breath and left leg swelling and pain. Patient states this is been going on persistently for the past 4 days. Patient does report recent admission for CHF but was discharged with none of the symptoms. Patient has significant past medical history of COPD, EtOH abuse, morbid obesity, CHF, defibrillator placement, coronary stent placements hyperlipidemia. Review of vital signs show that patient is slightly hypoxic on room air with monitor showing patient at 89% on room air. Not tachycardic, slightly hypotensive with blood pressure of 100/79, not tachypneic and not febrile. Patient does not know his medications he takes he does know he takes Plavix but unsure of all other medications. Physical exam shows significant diminished lung sounds with slight crackles, significant bilateral lower extremity edema with left greater than right along with left mid thigh being acutely tender erythematous and significant edema noted to the thigh that is not present on right leg. Otherwise there is bilateral pitting edema from the knees down. I have high clinical suspicion for DVT and PE given patient's reported history along with physical exam findings. Will order labs EKG and CTA of chest. Unfortunate this time no ultrasound is available. Pending results will give patient's dose of morphine given left lower extremity pain. Please see physician interpretation for full interpretation of EKG but upon my review patient is in sinus rhythm, no findings to suggest STEMI. There is Q waves present in lead III but overall EKG is unchanged from previous EKGs. Review of labs show slightly low hemoglobin of 12.9, platelets within normal range with count of 302, PT/INR and APTT is within normal limits, D-dimer is elevated at 1896. CMP shows elevated carbon dioxide 37.3, anion gap of 0.7, glucose of 120 otherwise unremarkable. Initial troponin is negative, BNP slightly elevated at 459 but significantly lower than previous admission. I did review previous echo which showed EF of 60% and this was done mid May. At this time I have low suspicion for acute CHF being primary seasonal driver of patient's dyspnea. Reviewed CT imaging with radiologist states negative for acute PE, patchy airspace densities in the left lower lobe having infectious or inflammatory appearance recommend follow-up given nodular appearance, small left pleural effusion, and mild left hilar lymphadenopathy with them stating this is reactive. Given negative for PE we will give patient DuoNeb to see if this helps with his shortness of breath given history of COPD. I am still clinically concerned for DVT with no availability for ultrasound imaging of the leg today. Given patient's history, recent admission, hypoxia, high clinical suspicion of DVT with dyspnea I do feel patient should be admitted. We will start patient on Lovenox pending admission but unfortunately our facility has no beds available so we will call around to local facilities for discussion of admitting patient to [facility] for further monitoring, anticoagulation, and ultrasound studies when available. Patient signed out to Mary BASURTO pending transfer or bed availability Medical Records Medical records reviewed: Yes I reviewed the patient's medical records. HPI General Mode of arrival: ambulatory. Date/Time Provider Initiated Documentation: 06/14/22 10:36. Limitations to Documentation: no limitations. Information obtained by: patient and RN notes reviewed. History of Present Illness 51 year old M presents to the emergency department with the chief complaint of Shortness of breath, left leg swelling, described as severe, with intensity rated at 8. Quality is described as sharp, and is localized to the left and lower extremity. Patient reports no radiation. Patient started experiencing this day(s) (4) and it has been constant. No relieving factors improve symptom(s), No exacerbating factors reported . Patient notes shortness of breath; denies chest pain, cough and syncope. Patient did receive the following treatments prior to arrival, none Related Data Home Medications Medication Instructions Recorded Confirmed amiodarone 200 mg tablet 200 mg PO DAILY 01/06/22 06/14/22 aspirin 81 mg tablet,delayed 81 mg PO DAILY 01/06/22 06/14/22 release atorvastatin 80 mg tablet 80 mg PO DAILY #30 tabs 01/06/22 06/14/22 clopidogrel 75 mg tablet (Plavix) 75 mg PO DAILY #30 tabs 01/06/22 06/14/22 folic acid 1 mg tablet 2 mg PO DAILY #30 tabs 01/06/22 06/14/22 hydralazine 50 mg tablet 50 mg PO TID #90 tabs 01/06/22 06/14/22 isosorbide mononitrate 30 mg 30 mg PO DAILY 01/06/22 06/14/22 tablet,extended release 24 hr losartan 25 mg tablet 25 mg PO DAILY #30 tabs 01/06/22 06/14/22 pantoprazole 40 mg tablet,delayed 40 mg PO DAILY #30 tabs 01/06/22 06/14/22 release (Protonix) ranolazine 500 mg tablet,extended 500 mg PO BID 01/06/22 06/14/22 release,12 hr buprenorphine 2 mg-naloxone 0.5 mg 1 film sublingual DAILY 01/26/22 06/14/22 sublingual film buspirone 15 mg tablet 15 mg PO BID 03/31/22 06/14/22 nitroglycerin 0.4 mg sublingual 0.4 mg sublingual Q5-15M PRN 03/31/22 06/14/22 tablet buprenorphine 8 mg-naloxone 2 mg 1 film sublingual DAILY 04/20/22 06/14/22 sublingual film (Suboxone) lorazepam 0.5 mg tablet 0.5 mg PO BID PRN 04/20/22 06/14/22 metoprolol succinate 25 mg 25 mg PO DAILY 04/20/22 06/14/22 tablet,extended release 24 hr citalopram 20 mg tablet 20 mg PO DAILY 06/14/22 06/14/22 bumetanide 1 mg tablet 1 mg PO BID 06/15/22 06/15/22 gabapentin 300 mg capsule 300 mg PO TID 06/15/22 06/15/22 trazodone 50 mg tablet 50 mg PO HS 06/15/22 06/15/22 albuterol sulfate 90 mcg/actuation 2 inh inhalation Q4H PRN #1 ea 06/17/22 breath activated powder inhaler levofloxacin 750 mg tablet 750 mg PO DAILY #10 tabs 06/17/22 tiotropium 2.5 mcg-olodaterol 2.5 2 puff inhalation DAILY #4 grams 06/17/22 mcg/actuation mist for inhalation (Stiolto Respimat) Previous Rx's Medication Instructions Recorded atorvastatin 80 mg tablet 80 mg PO DAILY #30 tabs 01/06/22 clopidogrel 75 mg tablet (Plavix) 75 mg PO DAILY #30 tabs 01/06/22 folic acid 1 mg tablet 2 mg PO DAILY #30 tabs 01/06/22 hydralazine 50 mg tablet 50 mg PO TID #90 tabs 01/06/22 losartan 25 mg tablet 25 mg PO DAILY #30 tabs 01/06/22 pantoprazole 40 mg tablet,delayed 40 mg PO DAILY #30 tabs 01/06/22 release (Protonix) albuterol sulfate 90 mcg/actuation 2 inh inhalation Q4H PRN #1 ea 06/17/22 breath activated powder inhaler levofloxacin 750 mg tablet 750 mg PO DAILY #10 tabs 06/17/22 tiotropium 2.5 mcg-olodaterol 2.5 2 puff inhalation DAILY #4 grams 06/17/22 mcg/actuation mist for inhalation (Stiolto Respimat) Allergies Allergy/AdvReac Type Severity Reaction Status Date / Time hydromorphone [From Dilaudid] Allergy Verified 06/14/22 10:37 General Stated Complaint: SOB GLADIS: 2 Review of Systems Constitutional Constitutional: Denies chills and Denies fever(s) Cardiovascular Cardiovascular: Denies chest pain, Denies chest pain with activity, Denies syncope, Denies irregular heart rhythm, Reports leg edema (Left more than right), Denies palpitations, Reports dyspnea and Reports dyspnea on exertion Respiratory Respiratory: Reports as per HPI, Denies cough, Denies hemoptysis, Reports dyspnea and Reports dyspnea on exertion Gastrointestinal Gastrointestinal: Denies abdominal pain, Denies nausea and Denies vomiting Musculoskeletal Musculoskeletal: Reports other (Left leg pain) Neurologic Neurologic: Denies syncope Psychiatric Psychiatric: Denies anxiety Endocrine Endocrine: Denies palpitations PFSH All Active Problems (Updated 06/18/22 @ 00:05 by BANDAR MORROW) Consolidation of left lower lobe of lung (Acute) Anxiety (Acute) Cellulitis of leg, left (Acute) Angina pectoris (Chronic) GERD (gastroesophageal reflux disease) (Chronic) Depression (Chronic) Morbid obesity (Chronic) AICD (automatic cardioverter/defibrillator) present (Acute) placed at [facility] for ischemic dilated cardiomyopathy Sruthi Robles DR 01/27/21 RH HLD (hyperlipidemia) (Acute) ETOH abuse (Chronic) Drug dependence (Acute) COPD (chronic obstructive pulmonary disease) (Chronic) Acute on chronic heart failure with reduced ejection fraction and diastolic dysfunction (Acute) Ischemic cardiomyopathy (Chronic) Afib (Chronic) Tobacco use disorder (Acute) Hx of hyperlipidemia (Acute) HTN (hypertension) (Chronic) CAD (coronary artery disease) (Chronic) Medical History (Updated 06/18/22 @ 00:05 by BANDAR MORROW) Alcohol use disorder, severe, dependence [facility] 01/21 Cardiac arrest CHF (congestive heart failure) Dental infection Exertional chest pain Homelessness Medication monitoring encounter Pacemaker Pulmonary nodules Surgical History (Updated 06/14/22 @ 17:47 by Mallory Booth NP) History of coronary artery stent placement History of hernia repair History of right knee joint replacement History of tonsillectomy Social History Smoking/Tobacco Use Status: Current-Occasional Tobacco Type: cigarettes Smoking risk assessment performed?: Yes Alcohol Intake: former Year quit: 2020 Details: Former heavy alcohol use. Drug use: Current Sobriety Substance use type: former substance user, marijuana and prescription drug Do you feel safe at home: Yes Do you feel safe in your relationship?: Yes Exam Const General: cooperative and not diaphoretic Orientation: alert, awake and oriented x3 Limitations: mental status not altered Neck Neck: normal visual inspection, full ROM, trachea midline, supple and no anterior neck swelling Carotids: normal carotid upstroke and no bruits Chest Chest: normal inspection of the chest Resp Effort & Inspection: normal respiratory effort, able to speak in complete sentences and not labored Auscultation: diminished lung sounds (With some slight crackles) Cardio Jugular venous pressure: no JVD Palpation: normal PMI Rate: regular rate Rhythm: regular rhythm Heart Sounds: S1 normal, S2 normal, no click, no gallops, no murmurs and no rubs Bruits: no abdominal aortic bruits and no carotid bruits Pulses: radial pulses present bilaterally 2+ Neuro General: patient alert, patient awake, patient oriented x3, tone normal and moves all extremities Extrem General: no calf tenderness Right lower extremity: edema (Knee down) Details: 2+ Left lower extremity: edema (From the thigh down) Details: pitting and 3+ and hip/thigh Details: tenderness Location: of the proximal upper leg Location: medially, warmth (Medial thigh) and other (Erythema to medial thigh) Course Vital Signs Vital signs: Vital Signs Temperature 36.9 C 06/14/22 10:23 Pulse 77 06/14/22 10:23 Respiratory Rate 20 06/14/22 10:23 Blood Pressure 100/79 06/14/22 10:23 Pulse Oximetry 95 06/14/22 10:23 Temperature 36.9 C 06/14/22 10:23 Temperature Source Oral 06/14/22 10:23 Pulse 77 06/14/22 10:23 Respiratory Rate 23 06/14/22 10:31 Respiratory Effort Short of Breath 06/14/22 10:36 Respiratory Depth Shallow 06/14/22 10:31 Respiratory Pattern Normal 06/14/22 10:31 Blood Pressure 100/79 06/14/22 10:23 Blood Pressure Position Sitting 06/14/22 10:23 Pulse Oximetry 95 06/14/22 10:23 Oxygen Delivery Method Room Air 06/14/22 10:23 Oxygen Flow Rate 0 06/14/22 10:23 Pain Level 8 06/14/22 10:23 Lab/Test Results Lab/Test Results: Laboratory Tests Range/Units 06/14/22 10:55 WBC (4.4-10.8) 10^3/uL 9.42 RBC (4.36-5.78) 10^6/uL 4.40 Hgb (13.5-17.5) g/dL 12.9 L Hct (40.0-50.0) % 41.7 MCV (80-95) fL 95 MCH (27.0-33.0) pg 29.3 MCHC (32.0-36.0) % 30.9 L RDW (11.8-14.1) % 13.5 Plt Count (130-400) 10^3/uL 302 MPV (8.0-11.0) fL 8.8 Immature Gran % 0.3 Neutrophils % 62.7 Lymphocytes % 17.7 Monocytes % 8.0 Eosinophils % 10.6 Basophils % 0.7 Nucleated RBC % (0.0-0.3) % 0.0 Absolute Neutrophils (1.2-6.7) 10^3/uL 5.90 Absolute Lymphocytes (1.2-3.4) 10^3/uL 1.67 Absolute Monocytes (0.1-0.8) 10^3/uL 0.75 Absolute Eosinophils (0.0-0.7) 10^3/uL 1.00 H Absolute Basophils (0.0-0.2) 10^3/uL 0.07 Sign Out Sign Out Data: Sign Out Comment: Patient pending bed availability for admission for DVT with hypoxia and shortness of breath. Plan of care if no bed availability is to consult with hospitalist for boarding patient in the emergency department to continue Lovenox every 12 along with monitoring and symptomatic treatment as needed. Last updated by Tyrone Blackman NP at 06/14/22 16:00
[2022-06-14] MEDS: Furosemide 20 MG/2 ML VIAL IVP (11:18)
[2022-06-14 11:19] LABS: INR 1.1 (0.9-1.1); PTT Activated 25.2 sec (21.5-31.9)
[2022-06-14] MEDS: MORPHine 4 MG/ML SYR IVP ×3 (11:19→21:23)
[2022-06-14 11:28] LABS: ALT 31 U/L (16-63); AST 32 U/L (15-37); Alkaline Phosphatase 91 U/L (46-116); Anion Gap 0.7 mmol/L (3-11); BUN 11 mg/dL (7-18); Bilirubin, Total 0.6 mg/dL (0.2-1.0); CO2 37.3 mmol/L (21.0-32.0); CREATININE 0.9 mg/dL (0.70-1.30); Chloride 101 mmol/L (98-107); Estimated GFR 102.12 (mL/min/1.73m2); Glucose 120 mg/dL (74-106); NT-proBNP 459 pg/mL (<300); Potassium 4.1 mmol/L (3.5-5.1); Sodium 139 mmol/L (136-145); Total Protein 7.6 g/dL (6.4-8.2); Troponin I < 50 ng/L (<or=60)
[2022-06-14] MEDS: Normal Saline - Diluent 50 ML VIAL IJ (11:47)
[2022-06-14] MEDS: Normal Saline Flush 10 ML SYR IVP (11:47)
[2022-06-14] MEDS: Omnipaque 350 MG/ML 100 ML BTL IJ (11:47)
[2022-06-14 11:48] LABS: D-Dimer 1896 ng/mlFEU (<500)
--- NOTE | 2022-06-14 12:17 | DI.VRAD_ITS ---
PROCEDURE INFORMATION: Exam: CTA Chest With Contrast Exam date and time: 06/14/2022 11:49 AM Age: 51 years old Clinical indication: Other: SOB; Prior surgery; Surgery date: 6+ months; Surgery type: Pacemaker TECHNIQUE: Imaging protocol: Computed tomographic angiography of the chest with contrast. 3D rendering (Not supervised by radiologist): MIP and/or 3D reconstructed images were created by the technologist. Radiation optimization: All CT scans at this facility use at least one of these dose optimization techniques: automated exposure control; mA and/or kV adjustment per patient size (includes targeted exams where dose is matched to clinical indication); or iterative reconstruction. Contrast material: OMNIPAQUE 350; Contrast volume: 100 ml; Contrast route: INTRAVENOUS (IV); COMPARISON: CT CHEST PE CTA 02/22/2022 5:15 PM FINDINGS: Pulmonary arteries: Negative for acute pulmonary embolism. Aorta: Unremarkable. No aortic aneurysm. No aortic dissection. Lungs: Patchy airspace densities in the left lower lobe, having infectious or inflammatory appearance. Recommend follow-up to resolution given somewhat nodular appearance. Pleural spaces: Small left pleural effusion. Heart: Unremarkable. No cardiomegaly. No pericardial effusion. Lymph nodes: Mild left hilar lymphadenopathy, likely reactive. Bones/joints: Unremarkable. No acute fracture. Soft tissues: Unremarkable. IMPRESSION: 1. Negative for acute pulmonary embolism. 2. Patchy airspace densities in the left lower lobe, having infectious or inflammatory appearance. Recommend follow-up to resolution given somewhat nodular appearance. 3. Small left pleural effusion. 4. Mild left hilar lymphadenopathy, likely reactive. Dictated and Authenticated by: Nohelia Estrada MD. Ordering:PAUL Hansen MD
[2022-06-14] MEDS: Albuterol/Ipratropium 3 ML UPD VIAL UPD (12:37)
[2022-06-14 12:49] LABS: Source Nasal/Nares
[2022-06-14] MEDS: LORazepam 1 MG TAB PO (12:50)
[2022-06-14 13:26] LABS: COVID-19 PCR Negative (Negative)
[2022-06-14 14:19] LABS: Troponin I < 50 ng/L (<or=60)
[2022-06-14] MEDS: Nicotine 21 MG/24 HR PATCH TD (14:56)
[2022-06-14 16:35] LABS: C-Reactive Protein 2.08 mg/dL (0.0-0.3)
[2022-06-14] MEDS: PIPERACILLIN/TAZO 4.5 GM in Normal Saline 100 ML IVPB (17:02)
[2022-06-14 17:23] LABS: Procalcitonin < 0.1 ng/mL
--- NOTE | 2022-06-14 17:38 | HPE_ITS ---
Date of service: 06/14/22 Time of Service: 17:00 Assessment and Plan Assessment and plan (1) CAD (coronary artery disease): Status: Chronic Assessment and plan: AICD - s/p cardiac arrest 2021 Continue Amiodarone Continue Aspirin Continue Clopidogrel Continue Metoprolol (2) Anxiety: Status: Acute Assessment and plan: Very anxious - not new; lorazepam oral PRN; conitnue Buspar (3) Cellulitis of leg, left: Status: Acute Assessment and plan: Red, warm area to left mid medial thigh; no fevers, states he fell and was on the ground for quite sometime needing help up (a few days ago) - scabbed area to left knee - that is a prosthetic knee. Zosyn coverage Dilaudid for pain (4) AICD (automatic cardioverter/defibrillator) present: Status: Acute Assessment and plan: No firing reported. Concern for bacteremia - Zosyn started (5) Acute on chronic heart failure with reduced ejection fraction and diastolic dysfunction: Status: Acute Assessment and plan: NTProBNP of 459 Continue Bumetanide Monitor. Echocardiogram done in May 2022 (6) COPD (chronic obstructive pulmonary disease): Status: Chronic Assessment and plan: Does occasionally smoke per chart. Encourage cessation. Albuterol/Duo neb (7) Morbid obesity: Status: Chronic Assessment and plan: OHS. Does not use CPAP at home Did not go pulmonary appointment (8) Angina pectoris: Status: Chronic Assessment and plan: Continue isosorbide Continue Nitroglycerin PRN Continue Ranolazine (9) GERD (gastroesophageal reflux disease): Status: Chronic Assessment and plan: Continue Pantoprazole (10) Hx of hyperlipidemia: Status: Acute Assessment and plan: Stable, continue home meds Atorvastatin 80 mg daily (11) Tobacco use disorder: Status: Acute Assessment and plan: Offer nicoderm. (12) Alcohol use disorder, severe, dependence: Assessment and plan: In remission. Continue folic acid (13) Drug dependence: Status: Acute Assessment and plan: Continue Suboxone (14) Depression: Status: Chronic Assessment and plan: Continue Citalopram (15) DVT prophylaxis: Status: Acute Assessment and plan: Recieved enoxaparin 150 mg sc in ED for possible DVT, will provide therapeutic enoxaparin 150 mg BID (16) Discharge planning issues: Status: Acute Assessment and plan: Home when stable +/- HH Discussed with Dr Gaines History of Present Illness History of Present Illness Chief Complaint: Shortness of breath and LLE pain/swelling for four days Narrative: This is a 51 year old male patient with past medical history of COPD, ETOH abuse, morbid obesity, CHF, defibrillator placement, coronary stent placements and hyperlipidemia who presented to the [facility] emergency department with the chief complaint of shortness of breath and left lower leg swelling for 4 days. ?Patient reports no chest pain, no dizziness, no fever. No relieving or exacerbating factors.? Patient had a recent admission to [facility] for CHF. Vital signs in the ED, patient is slightly hypoxic - 89% on room air.? Not tachycardic, slightly hypotensive with blood pressure of 100/79, not tachypneic and not febrile.? Patient does not know his medications he takes he does know he takes Plavix but unsure of all other medications.?EKG in the ED read as sinus rhythm, no findings to suggest STEMI.? There is Q waves present in lead III but overall EKG is unchanged from previous EKGs. Review of labs showed slightly low hemoglobin of 12.9, platelets within normal range with count of 302, PT/INR and APTT is within normal limits, D-dimer is elevated at 1896.? CMP showed elevated carbon dioxide 37.3, anion gap of 0.7, glucose of 120 otherwise unremarkable.? Initial troponin was negative, BNP slightly elevated at 459 but significantly lower than previous admission.? Echo from 05/21/2022 showed EF of 60%. CTA chest negative for acute PE, does show patchy airspace densities in the left lower lobe having infectious or inflammatory appearance recommend follow-up given nodular appearance, small left pleural effusion, and mild left hilar lymphadenopathy with them stating this is reactive.? Given negative for PE we will give patient DuoNeb to see if this helps with his shortness of breath given history of COPD.? Clinical concern for DVT with no availability for ultrasound imaging of the leg today, patient was started on Lovenox.? Patient is being admitted to the medical surgical floor for shortness of breath requiring oxygen at rest. Patient is boarding in the ED s/t capacity on med surg. Review of Systems All systems reviewed & are unremarkable except as noted in HPI and below PFSH All Active Problems (Updated 06/15/22 @ 12:53 by May Hoffman MD) Consolidation of left lower lobe of lung (Acute) Anxiety (Acute) Cellulitis of leg, left (Acute) DVT prophylaxis (Acute) Discharge planning issues (Acute) Angina pectoris (Chronic) GERD (gastroesophageal reflux disease) (Chronic) Depression (Chronic) Morbid obesity (Chronic) AICD (automatic cardioverter/defibrillator) present (Acute) placed at [facility] for ischemic dilated cardiomyopathy [employer] Margaret MACDONALD 01/27/21 RH HLD (hyperlipidemia) (Acute) ETOH abuse (Chronic) Drug dependence (Acute) COPD (chronic obstructive pulmonary disease) (Chronic) Acute on chronic heart failure with reduced ejection fraction and diastolic dysfunction (Acute) Ischemic cardiomyopathy (Chronic) Afib (Chronic) Tobacco use disorder (Acute) Hx of hyperlipidemia (Acute) HTN (hypertension) (Chronic) CAD (coronary artery disease) (Chronic) Medical History (Updated 06/15/22 @ 12:53 by May Hoffman MD) Alcohol use disorder, severe, dependence [facility] 01/21 Cardiac arrest CHF (congestive heart failure) Dental infection Exertional chest pain Homelessness Medication monitoring encounter Pacemaker Pulmonary nodules Surgical History (Updated 06/14/22 @ 17:47 by Mallory Booth NP) History of coronary artery stent placement History of hernia repair History of right knee joint replacement History of tonsillectomy Social History Smoking/Tobacco Use Status: Current-Occasional Tobacco Type: cigarettes Smoking risk assessment performed?: Yes Alcohol Intake: former Year quit: 2020 Details: Former heavy alcohol use. Drug use: Current Sobriety Substance use type: former substance user, marijuana and prescription drug Do you feel safe at home: Yes Do you feel safe in your relationship?: Yes Meds Allergies and Home Medications Allergies Allergy/AdvReac Type Severity Reaction Status Date / Time hydromorphone [From Dilaudid] Allergy Verified 06/14/22 10:37 Home Medications Medication Instructions Recorded Confirmed Type amiodarone 200 mg tablet 200 mg PO DAILY 01/06/22 06/14/22 History aspirin 81 mg tablet,delayed 81 mg PO DAILY 01/06/22 06/14/22 History release atorvastatin 80 mg tablet 80 mg PO DAILY #30 tabs 01/06/22 06/14/22 Rx clopidogrel 75 mg tablet (Plavix) 75 mg PO DAILY #30 tabs 01/06/22 06/14/22 Rx folic acid 1 mg tablet 2 mg PO DAILY #30 tabs 01/06/22 06/14/22 Rx hydralazine 50 mg tablet 50 mg PO TID #90 tabs 01/06/22 06/14/22 Rx isosorbide mononitrate 30 mg 30 mg PO DAILY 01/06/22 06/14/22 History tablet,extended release 24 hr losartan 25 mg tablet 25 mg PO DAILY #30 tabs 01/06/22 06/14/22 Rx pantoprazole 40 mg tablet,delayed 40 mg PO DAILY #30 tabs 01/06/22 06/14/22 Rx release (Protonix) ranolazine 500 mg tablet,extended 500 mg PO BID 01/06/22 06/14/22 History release,12 hr buprenorphine 2 mg-naloxone 0.5 mg 1 film sublingual DAILY 01/26/22 06/14/22 History sublingual film buspirone 15 mg tablet 15 mg PO BID 03/31/22 06/14/22 History nitroglycerin 0.4 mg sublingual 0.4 mg sublingual Q5-15M PRN 03/31/22 06/14/22 History tablet buprenorphine 8 mg-naloxone 2 mg 1 film sublingual DAILY 04/20/22 06/14/22 History sublingual film (Suboxone) lorazepam 0.5 mg tablet 0.5 mg PO BID PRN 04/20/22 06/14/22 History metoprolol succinate 25 mg 25 mg PO DAILY 04/20/22 06/14/22 History tablet,extended release 24 hr citalopram 20 mg tablet 20 mg PO DAILY 06/14/22 06/14/22 History bumetanide 1 mg tablet 1 mg PO BID 06/15/22 06/15/22 History gabapentin 300 mg capsule 300 mg PO TID 06/15/22 06/15/22 History trazodone 50 mg tablet 50 mg PO HS 06/15/22 06/15/22 History albuterol sulfate 90 mcg/actuation 2 inh inhalation Q4H PRN #1 ea 06/17/22 Rx breath activated powder inhaler levofloxacin 750 mg tablet 750 mg PO DAILY #10 tabs 06/17/22 Rx tiotropium 2.5 mcg-olodaterol 2.5 2 puff inhalation DAILY #4 grams 06/17/22 Rx mcg/actuation mist for inhalation (Stiolto Respimat) Exam Const General: cooperative and no acute distress Orientation: alert, awake and oriented x3 HENMT Head: normal to inspection Ears: hearing grossly normal bilaterally and external ears normal General nose exam: external nose normal Face and sinus: normal facial exam Mouth: oral mucosae normal Eyes General: appearance normal, both eyes and all related structures Eyelids: eyelids normal EOM: EOM intact bilaterally Neck Neck: normal visual inspection Lymphatic: no lymphadenopathy noted Chest Chest: normal inspection of the chest Resp Effort & Inspection: normal respiratory effort and able to speak in complete sentences Auscultation: crackles bilaterally in the lower lung [place] and diminished lung sounds bilaterally throughout Cardio Rate: regular rate Rhythm: regular rhythm GI Inspection: normal to inspection Palpation: soft, not firm, no guarding and nontender Auscultation: normal bowel sounds Neuro General: patient alert and patient awake Cognition: normal cognition Speech: speech normal Sensory Exam: no sensory deficits noted Extrem General: full ROM and capillary refill normal Other: significant bilateral lower extremity edema with left greater than right along with left mid thigh being acutely tender erythematous and significant edema noted to the thigh that is not present on right leg.? Otherwise there is bilateral pitting edema from the knees down.? Left calf measures 50 cm and right calf measures 50.5 cm Psych Appearance: grossly normal Mental Status: mental status grossly normal Speech and Movement: speech and movement normal Affect: normal affect Thought Process: normal Results Labs 06/14/22 10:55 06/14/22 10:55 Labs: Laboratory Results - last 24 hr 06/14/22 06/14/22 06/14/22 10:55 10:55 10:55 WBC 9.42 RBC 4.40 Hgb 12.9 L Hct 41.7 MCV 95 MCH 29.3 MCHC 30.9 L RDW 13.5 Plt Count 302 MPV 8.8 Immature Gran % 0.3 Neutrophils % 62.7 Lymphocytes % 17.7 Monocytes % 8.0 Eosinophils % 10.6 Basophils % 0.7 Nucleated RBC % 0.0 Absolute Neutrophils 5.90 Absolute Lymphocytes 1.67 Absolute Monocytes 0.75 Absolute Eosinophils 1.00 H Absolute Basophils 0.07 PT 11.0 INR 1.1 APTT 25.2 D-Dimer 1896 H Sodium 139 Potassium 4.1 Chloride 101 Carbon Dioxide 37.3 H Anion Gap 0.7 L BUN 11 Creatinine 0.9 Est GFR (CKD-EPI 2020) 102.12 Glucose 120 H Calcium 9.0 Magnesium 2.0 Total Bilirubin 0.6 AST 32 ALT 31 Alkaline Phosphatase 91 Troponin I < 50 C-Reactive Protein NT-Pro-B Natriuret Pep 459 H Total Protein 7.6 Albumin 3.0 L Procalcitonin COVID-19 Source SARS-CoV-2 (PCR) 06/14/22 06/14/22 06/14/22 12:35 13:47 13:47 WBC RBC Hgb Hct MCV MCH MCHC RDW Plt Count MPV Immature Gran % Neutrophils % Lymphocytes % Monocytes % Eosinophils % Basophils % Nucleated RBC % Absolute Neutrophils Absolute Lymphocytes Absolute Monocytes Absolute Eosinophils Absolute Basophils PT INR APTT D-Dimer Sodium Potassium Chloride Carbon Dioxide Anion Gap BUN Creatinine Est GFR (CKD-EPI 2020) Glucose Calcium Magnesium Total Bilirubin AST ALT Alkaline Phosphatase Troponin I < 50 C-Reactive Protein 2.08 H NT-Pro-B Natriuret Pep Total Protein Albumin Procalcitonin COVID-19 Source Nasal/Nares SARS-CoV-2 (PCR) Negative 06/14/22 16:40 WBC RBC Hgb Hct MCV MCH MCHC RDW Plt Count MPV Immature Gran % Neutrophils % Lymphocytes % Monocytes % Eosinophils % Basophils % Nucleated RBC % Absolute Neutrophils Absolute Lymphocytes Absolute Monocytes Absolute Eosinophils Absolute Basophils PT INR APTT D-Dimer Sodium Potassium Chloride Carbon Dioxide Anion Gap BUN Creatinine Est GFR (CKD-EPI 2020) Glucose Calcium Magnesium Total Bilirubin AST ALT Alkaline Phosphatase Troponin I C-Reactive Protein NT-Pro-B Natriuret Pep Total Protein Albumin Procalcitonin < 0.1 COVID-19 Source SARS-CoV-2 (PCR) Last Vital Signs Temp 36.6 C 06/14/22 15:09 Pulse 58 L 06/14/22 14:31 Resp 14 06/14/22 14:40 BP 127/64 06/14/22 14:31 Pulse Ox 94 06/14/22 14:31 Time Spent Time spent with Patient: 55-74 minutes Time was spent: preparing to see the patient(eg.review tests), obtaining and/or reviewing separately otained hiistory, ordering medications,tests, procedures, referring, communicating with other health home health care case manager, indepentently interpreting results, counseling the patient and care coordination
[2022-06-14] MEDS: LORazepam 0.5 MG TAB PO (21:23)
[2022-06-14] MEDS: Gabapentin 300 MG CAP PO (21:34)
[2022-06-14] MEDS: busPIRone 15 MG TAB PO (21:38)
[2022-06-14] MEDS: Bumetanide 1 MG TAB 2 MG PO (21:39)
[2022-06-14] MEDS: Ranolazine 500 MG TABCR PO (21:40)
[2022-06-14] MEDS: PIPERACILLIN/TAZO 3.375 GM in Normal Saline 50 ML IVPB (23:48)
[2022-06-15] VITALS (148 sets, daily range): BP systolic 91–162; BP diastolic 46–115; PULSE 58–116; RESP 7–35; TEMP 36–36.9; O2SAT 87–96
--- NOTE | 2022-06-15 | DI.US_ITS ---
Exam(s) US EXTREMITY VENOUS BI EXAM: US EXTREMITY VENOUS BI CLINICAL HISTORY: BLE edema, ?DVT. TECHNIQUE: Bilateral lower extremity venous ultrasound performed using grayscale, color-flow, and sp ectral Doppler analysis. COMPARISON: No exams were available for comparison FINDINGS: The bilateral common femoral, femoral and popliteal veins demonstrate normal compressibility, augment ation, and color Doppler. The posterior tibial veins are patent. Edema in the subcutaneous fat of th e lower leg bilaterally IMPRESSION: Right: Negative for DVT Left: Negative for DVT DATA REPOSITORY:
--- NOTE | 2022-06-15 | DI.CT_ITS ---
Exam(s) CT LOWER EXTREMITY LT W EXAM: CT LOWER EXTREMITY LT W CLINICAL HISTORY: Possible abscess. TECHNIQUE: Imaging Protocol: Axial computed tomography images with coronal and sagittal reformatted images were created and reviewed. CONTRAST MATERIAL: Intravenous: Omnipaque 350 Contrast volume:100 ml Contrast route:IV - COMPARISON: No exams were available for comparison FINDINGS: Bones: A knee prosthesis is noted. There is no evidence of fracture or dislocation. No osteomyeliti c changes are identified. Soft Tissues: Soft tissue edema and venous varicosities in the upper thigh. No evidence of abscess. Normal appearing groin lymph nodes. IMPRESSION: Findings consistent with cellulitis in the medial thigh. No evidence of abscess. RADIATION DOSE DELIVERED: 398.18mGy.cm Total DLP DATA REPOSITORY: All CT scans at this facility are submitted to the National Radiology Data Registry (NRDR) Dose Index Registry (DIR) with the [employer] (ACR). RADIATION OPTIMIZATION: All CT scans at this facility use at least one of these dose optimization te chniques: automated exposure control; mA and/or kV adjustment per patient size (includes targeted exa ms where dose is matched to clinical indication); or iterative reconstruction.
[2022-06-15 05:30] LABS: Abs Immature Grans 0.04 10^3/uL (0.0-0.06); Absolute Basophil Count 0.06 10^3/uL (0.0-0.2); Absolute Eosinophil Count 0.86 10^3/uL (0.0-0.7); Absolute Lymphocyte Count 2.39 10^3/uL (1.2-3.4); Absolute Monocyte Count 0.71 10^3/uL (0.1-0.8); Basophils % 0.6; Eosinophils % 9.3; HCT 41.6 % (40.0-50.0); HGB 12.9 g/dL (13.5-17.5); Immature Grans % 0.4; Lymphocytes % 25.8; MCH 29.2 pg (27.0-33.0); MCV 94 fL (80-95); MPV 8.5 fL (8.0-11.0); Monocytes % 7.7; Neutrophils % 56.2; Platelet Count 285 10^3/uL (130-400); RBC 4.42 10^6/uL (4.36-5.78); RDW 13.7 % (11.8-14.1); RDW-SD 46.7 fL; WBC 9.26 10^3/uL (4.4-10.8)
[2022-06-15 05:49] LABS: Anion Gap 2.7 mmol/L (3-11); BUN 12 mg/dL (7-18); CO2 38.3 mmol/L (21.0-32.0); CREATININE 0.9 mg/dL (0.70-1.30); Calcium 8.9 mg/dL (8.5-10.1); Chloride 96 mmol/L (98-107); Estimated GFR 102.12 (mL/min/1.73m2); Glucose 98 mg/dL (74-106); Magnesium 1.9 mg/dL (1.8-2.4); Sodium 137 mmol/L (136-145)
[2022-06-15] MEDS: PIPERACILLIN/TAZO 3.375 GM in Normal Saline 50 ML IVPB ×3 (06:04→22:26)
[2022-06-15] MEDS: Clopidogrel 75 MG TAB PO (07:50)
[2022-06-15] MEDS: Pantoprazole 40 MG TABCR PO (07:50)
[2022-06-15] MEDS: Gabapentin 300 MG CAP PO ×2 (07:50→19:29)
[2022-06-15] MEDS: Folic Acid 1 MG TAB 2 MG PO (07:51)
[2022-06-15] MEDS: Buprenorphine/Naloxone 2 mg/0.5 mg FILM 1 EACH SL (07:51)
[2022-06-15] MEDS: LORazepam 0.5 MG TAB PO ×2 (07:51→19:29)
[2022-06-15] MEDS: Buprenorphine/Naloxone 8 mg/2 mg FILM 1 EACH SL (07:51)
[2022-06-15] MEDS: Citalopram 20 MG TAB PO (08:54)
[2022-06-15] MEDS: Multivitamin w/Minerals TAB 1 TAB PO (08:54)
[2022-06-15] MEDS: Isosorbide Mononitrate 30 MG TABCR PO (08:54)
[2022-06-15] MEDS: Metoprolol CR 25 MG TABCR PO (08:55)
[2022-06-15] MEDS: Bumetanide 1 MG TAB 2 MG PO (08:55)
[2022-06-15] MEDS: Amiodarone 200 MG TAB PO (08:55)
[2022-06-15] MEDS: Losartan 25 MG TAB PO (08:55)
[2022-06-15] MEDS: busPIRone 15 MG TAB PO ×2 (08:57→19:29)
--- NOTE | 2022-06-15 10:19 | NUR.NOTE ---
reported low oxygen level of 86-87 % room air. I left a message for the hospitalist with this information. CLB
[2022-06-15] MEDS: Acetaminophen 325 MG TAB PO (10:33)
--- NOTE | 2022-06-15 11:15 | TELEP.MEDR_ITS ---
Date of service: 06/15/22 Time of Service: 11:15 Telepharmacy Home Med Rec Allergies Allergies: hydromorphone [From Dilaudid] Allergy (Verified 06/14/22 10:37) Interview Person Interviewed: * No interview, patient reports he does not know his medications. Med list updated from [employer] bubble packing list and [facility] records Quality Quality of Interview/Accuracy of Medication List: Good Sources Sources used to compile medication list: [facility] Medication List, Retail Pharmacy ([employer]) and Other ([facility] (suboxone dose)) Changes made to Home Medication List: ADDITIONS: * Trazodone 50mg PO qHS DELETIONS: * Multivitamin CHANGES: * Bumex 1mg PO BID (@) Additional Notes Additional Notes: * Per [facility]: pt takes 10mg of opioid once daily (8-2 film + 2-0.5mg film). Patient was last sent home with a take home dose this past weekend, with an expected last dose to be taken on 06/13 Recommended Changes Recommended Changes(reason for recommendation): * None Attestation: The home medication list is now updated to the best of my knowledge and is ready to be reconciled by the provider. Please contact the TelePharmacy Medication Reconciliation Pharmacist at for any questions.
--- NOTE | 2022-06-15 11:15 | TELEP.MEDREC ---
Date of service: 06/15/22 Time of Service: 11:15 Telepharmacy Home Med Rec Allergies Allergies: hydromorphone [From Dilaudid] Allergy (Verified 06/14/22 10:37) Interview Person Interviewed: No interview, patient reports he does not know his medications. Med list updated from [employer] bubble packing list and [facility] records Quality Quality of Interview/Accuracy of Medication List: Good Sources Sources used to compile medication list: [facility] [facility] Medication List, Retail Pharmacy ([facility]) and Other ([facility] (suboxone dose)) Changes made to Home Medication List: ADDITIONS: Trazodone 50mg PO qHS DELETIONS: Multivitamin CHANGES: Bumex 1mg PO BID (@) Additional Notes Additional Notes: Per [facility]: pt takes 10mg of opioid once daily (8-2 film + 2-0.5mg film). Patient was last sent home with a take home dose this past weekend, with an expected last dose to be taken on 06/13 Recommended Changes Recommended Changes(reason for recommendation): None Attestation: The home medication list is now updated to the best of my knowledge and is ready to be reconciled by the provider. Please contact the TelePharmacy Medication Reconciliation Pharmacist at for any questions.
[2022-06-15] MEDS: Aspirin E.C. 81 MG TABEC PO (11:19)
[2022-06-15] MEDS: Ranolazine 500 MG TABCR PO ×2 (11:20→19:30)
[2022-06-15] MEDS: hydrALAZINE 25 MG TAB 50 MG PO ×2 (11:20→19:30)
[2022-06-15] MEDS: MORPHine 4 MG/ML SYR IVP ×3 (11:41→22:24)
--- NOTE | 2022-06-15 12:04 | NUR.NOTE ---
Nursing Note:Pt sitting up on side of bed, eating lunch. O2 sat 92% on 2LNC. Pt denies any need at this time.
--- NOTE | 2022-06-15 12:05 | W.PULMCON ---
General Date Of Service Date of service: 06/15/22 Time of Service: 12:07 Reason for Consult: Abnormal chest CT Assessment and Plan Assessment and plan (1) COPD (chronic obstructive pulmonary disease): Status: Chronic (2) Tobacco use disorder: Status: Acute (3) Consolidation of left lower lobe of lung: Status: Acute Assessment and plan: This is a 51 yo co-morbid man with a LLL consolidation. This was present 5 days ago and seems to have progressed with a pleural effusion now present. His CT from January found no masses or nodules, nor effusions. This makes malignancy lower on the differential. A repeat CT from an admission in May was ordered by the hospitalist, however I cannot see any follow up on this scan at that time. His most recent scan is concerning for a progressive infection (as the patient has not been treated for any infection until this admission). it is most likely that this consolidation represents an evolving untreated infectious process. He is not overtly immunocompromised, although I would argue his obesity is a risk factor for the possibility of atypical infection. I will non-invasively test for bacterial and fungal infections as well as rule out other potential causes of waxing and waning pulmonary infiltrates, such as autoimmune disease. I will see him in my clinic in 2 months time with a repeat chest CT that I will order prior to this visit. I will start him on inhaler therapy for COPD and will plan on PFT's once he is less acutely ill. As an aside, I am concerned about his upper thigh/perineal exam, specifically with the potential for an abscess so would recommend imaging of this area to ensure there is nothing drainable present. Pulmonary consolidation - agree with Zosyn - Urine antigens for: strep, legionella, histoplasma, blastomycosis - Lab testing: ANTONIO, RF, anti-CCP, ANCA panel - repeat chest CT in 2 months, will book appointment with me at this time as well Presumptive COPD - start Stiolto - on nebs - DC with albuterol inhaler prn as well as Stiolto please - will work up more fully as an outpatient History of Present Illness Narrative: This is a 51 yo comorbid man admitted for left leg cellulitis. I was consulted to assess an abnormal chest CT, namely a LLL consolidation. He has had a CT scan in January 2022 which did not find any abnormalities. in the LLL. He did have a CT scan 5 days ago which did find this infiltrate and again his CT from yesterday redemonstrates this consolidation, but now with some growth and a small left pleural effusion. He denies any respiratory prodromic illness. He has been concerned about his leg, but did not notice any worsening pulmonary symptoms. No chest pains, no cough or sputum production. he tells me he is an ex-smoker, approx 35-40 pack years but now vapes nicotine. He tells me he holds a diagnosis of COPD, although has no PFT's in our system and is not on any inhalers as an outpatient. He is not immunocompromised. Review of Systems All systems reviewed & are unremarkable except as noted in HPI and below PFSH All Active Problems (Updated 06/15/22 @ 12:53 by May Hoffman MD) Consolidation of left lower lobe of lung (Acute) Anxiety (Acute) Cellulitis of leg, left (Acute) DVT prophylaxis (Acute) Discharge planning issues (Acute) Angina pectoris (Chronic) GERD (gastroesophageal reflux disease) (Chronic) Depression (Chronic) Morbid obesity (Chronic) AICD (automatic cardioverter/defibrillator) present (Acute) placed at [facility] for ischemic dilated cardiomyopathy [employer] MACDONALD 01/27/21 RH HLD (hyperlipidemia) (Acute) ETOH abuse (Chronic) Drug dependence (Acute) COPD (chronic obstructive pulmonary disease) (Chronic) Acute on chronic heart failure with reduced ejection fraction and diastolic dysfunction (Acute) Ischemic cardiomyopathy (Chronic) Afib (Chronic) Tobacco use disorder (Acute) Hx of hyperlipidemia (Acute) HTN (hypertension) (Chronic) CAD (coronary artery disease) (Chronic) Medical History (Updated 06/15/22 @ 12:53 by May Hoffman MD) Alcohol use disorder, severe, dependence [facility] 01/21 Cardiac arrest CHF (congestive heart failure) Dental infection Exertional chest pain Homelessness Medication monitoring encounter Pacemaker Pulmonary nodules Surgical History (Updated 06/14/22 @ 17:47 by Mallory Booth NP) History of coronary artery stent placement History of hernia repair History of right knee joint replacement History of tonsillectomy Social History Smoking/Tobacco Use Status: Current-Occasional Tobacco Type: cigarettes Smoking risk assessment performed?: Yes Alcohol Intake: former Year quit: 2020 Details: Former heavy alcohol use. Drug use: Current Sobriety Substance use type: former substance user, marijuana and prescription drug Do you feel safe at home: Yes Do you feel safe in your relationship?: Yes Visit Medication and Allergies Active Medications Generic Name Dose Route Start Last Admin Trade Name Freq PRN Reason Stop Dose Admin Acetaminophen 0 mg 06/14/22 16:41 06/15/22 10:33 Acetaminophen 325 Mg Tab PO 650 mg Q4H PRN PRN Administration Al Hydrox/Mg Hydrox/Simethicone 30 ml 06/14/22 16:41 Mylanta Suspension 30 Ml Cup PO Q2H PRN PRN Albuterol Sulfate 2.5 mg 06/14/22 16:41 Albuterol 2.5 Mg/3 Ml Inh Soln Vial UPD Q2H PRN PRN Albuterol/Ipratropium 3 ml 06/14/22 16:41 Albuterol/Ipratropium 3 Ml Upd Vial UPD Q6H PRN PRN Amiodarone HCl 200 mg 06/15/22 08:30 06/15/22 08:55 Amiodarone 200 Mg Tab PO 200 mg DAILY ALFREDITO Administration Aspirin 81 mg 06/15/22 08:30 06/15/22 11:19 Aspirin E.C. 81 Mg Tabec PO 81 mg DAILY ALFREDITO Administration Atorvastatin Calcium 80 mg 06/15/22 20:00 Atorvastatin 40 Mg Tab PO QPM ALFREDITO Bumetanide 2 mg 06/14/22 20:00 06/15/22 08:55 Bumetanide 1 Mg Tab PO 2 mg BID ALFREDITO Administration Buprenorphine/Naloxone 1 each 06/15/22 08:30 06/15/22 07:51 Buprenorphine/Naloxone 2 Mg/0.5 Mg Film SL 1 each DAILY ALFREDITO Administration Buprenorphine/Naloxone 1 each 06/15/22 08:30 06/15/22 07:51 Buprenorphine/Naloxone 8 Mg/2 Mg Film SL 1 each DAILY ALFREDITO Administration Buspirone HCl 15 mg 06/14/22 20:00 06/15/22 08:57 Buspirone 15 Mg Tab PO 15 mg BID ALFREDITO Administration Citalopram Hydrobromide 20 mg 06/15/22 08:30 06/15/22 08:54 Citalopram 20 Mg Tab PO 20 mg DAILY ALFREDITO Administration Clopidogrel Bisulfate 75 mg 06/15/22 08:30 06/15/22 07:50 Clopidogrel 75 Mg Tab PO 75 mg DAILY [facility] Administration Clotrimazole 40 gm/ Zinc Oxide 0 gm 06/15/22 12:01 40 gm/ Vitamin A/Vitamin D 40 TP gm TID PRN PRN Dimethicone/Zinc Oxide 0 gm 06/14/22 16:41 Branden Protect Cream 142 Gm Tube TP PRN PRN Docusate Sodium 100 mg 06/14/22 16:41 Docusate Sodium 100 Mg Cap PO TID PRN PRN Enoxaparin Sodium 150 mg 06/14/22 23:00 06/14/22 23:54 Enoxaparin 150 Mg/Ml Syr SC 150 mg Q12H ALFREDITO Administration Folic Acid 2 mg 06/15/22 08:30 06/15/22 07:51 Folic Acid 1 Mg Tab PO 2 mg DAILY [facility] Administration Gabapentin 300 mg 06/14/22 21:30 06/15/22 07:50 Gabapentin 300 Mg Cap PO 300 mg TID [facility] Administration Hydralazine HCl 50 mg 06/15/22 08:30 06/15/22 11:20 Hydralazine 25 Mg Tab PO 50 mg TID [facility] Administration Sodium Chloride 500 mls @ 0 mls/hr 06/14/22 10:36 Saline 500ml Bag IV PRN PRN As Directed Sodium Chloride 500 mls @ 0 mls/hr 06/14/22 16:41 Saline 500ml Bag IV PRN PRN As Directed Piperacillin Sod/Tazobactam 50 mls @ 100 mls/hr 06/15/22 06:00 06/15/22 07:36 Sod 3.375 gm/ Sodium Chloride IVPB Infused Q6H [facility] Infusion Protocol IV Miscellaneous Supplies 1 each 06/14/22 16:45 Iv Access IV DIRECTED [facility] Iron/Minerals/Multivitamins 1 tab 06/15/22 08:30 06/15/22 08:54 Multivitamin W/Minerals Tab PO 1 tab DAILY [facility] Administration Isosorbide Mononitrate 30 mg 06/15/22 08:30 06/15/22 08:54 Isosorbide Mononitrate 30 Mg Tabcr PO 30 mg DAILY [facility] Administration Lorazepam 0.5 mg 06/14/22 20:00 06/15/22 07:51 Lorazepam 0.5 Mg Tab PO 0.5 mg BID ALFREDITO Administration Lorazepam 1 mg 06/14/22 18:40 Lorazepam 1 Mg Tab PO TID PRN PRN Losartan Potassium 25 mg 06/15/22 08:30 06/15/22 08:55 Losartan 25 Mg Tab PO 25 mg DAILY ALFREDIT[facility] Administration Magnesium Hydroxide 30 ml 06/14/22 16:41 Milk Of Magnesia 30 Ml Cup PO DAILY PRN PRN Metoprolol Succinate 25 mg 06/15/22 08:30 06/15/22 08:55 Metoprolol Cr 25 Mg Tabcr PO 25 mg DAILY ALFREDITO Administration Morphine Sulfate 4 mg 06/15/22 11:00 Morphine 4 Mg/Ml Syr IVP Q4H PRN PRN Nitroglycerin 0.4 mg 06/14/22 17:18 Nitroglycerin 0.4 Mg Tab SL PRN PRN Pantoprazole Sodium 40 mg 06/15/22 08:30 06/15/22 07:50 Pantoprazole 40 Mg Tabcr PO 40 mg DAILY ALFREDITO Administration Ranolazine 500 mg 06/14/22 20:00 06/15/22 11:20 Ranolazine 500 Mg Tabcr PO 500 mg BID ALFREDITO Administration Sodium Chloride 0 ml 06/14/22 16:41 Normal Saline Flush 10 Ml Syr IVP PRN PRN Allergies hydromorphone [From Dilaudid] Allergy (Verified 06/14/22 10:37) Exam Narrative Exam Narrative: Gen: NAD, normal respiratory effort, obese HENT: PERRL Chest: No respiratory distress, normal appearance of chest, clear to auscultation bilaterally, no crackles or wheezes, normal inspiratory effort Heart: regular rate and rhythym, no murmurs, rubs or gallops Abdomen: Non-distended, soft, non tender Extremities: No clubbing, + bilateral edema with stasis changes. Left thigh cellulitis patch and hardening of upper left thigh into pubis region. Neuro: AAOx3 , non focal Psych: cooperative, appropriate mental affect Results Last Vital Signs Temp 36.5 C 06/15/22 11:28 Pulse 65 06/15/22 11:40 Resp 18 06/15/22 11:40 BP 104/71 06/15/22 11:40 Pulse Ox 94 06/15/22 11:40 Labs 06/15/22 05:25 06/15/22 05:25 Labs: Laboratory Results - last 24 hr 06/14/22 06/14/22 06/14/22 12:35 13:47 13:47 WBC RBC Hgb Hct MCV MCH MCHC RDW Plt Count MPV Immature Gran % Neutrophils % Lymphocytes % Monocytes % Eosinophils % Basophils % Nucleated RBC % Absolute Neutrophils Absolute Lymphocytes Absolute Monocytes Absolute Eosinophils Absolute Basophils Sodium Potassium Chloride Carbon Dioxide Anion Gap BUN Creatinine Est GFR (CKD-EPI 2020) Glucose Calcium Magnesium Troponin I < 50 C-Reactive Protein 2.08 H Procalcitonin COVID-19 Source Nasal/Nares SARS-CoV-2 (PCR) Negative 06/14/22 06/15/22 06/15/22 16:40 05:25 05:25 WBC 9.26 RBC 4.42 Hgb 12.9 L Hct 41.6 MCV 94 MCH 29.2 MCHC 31.0 L RDW 13.7 Plt Count 285 MPV 8.5 Immature Gran % 0.4 Neutrophils % 56.2 Lymphocytes % 25.8 Monocytes % 7.7 Eosinophils % 9.3 Basophils % 0.6 Nucleated RBC % 0.0 Absolute Neutrophils 5.20 Absolute Lymphocytes 2.39 Absolute Monocytes 0.71 Absolute Eosinophils 0.86 H Absolute Basophils 0.06 Sodium 137 Potassium 4.0 Chloride 96 L Carbon Dioxide 38.3 H Anion Gap 2.7 L BUN 12 Creatinine 0.9 Est GFR (CKD-EPI 2020) 102.12 Glucose 98 Calcium 8.9 Magnesium 1.9 Troponin I C-Reactive Protein 2.00 H Procalcitonin < 0.1 COVID-19 Source SARS-CoV-2 (PCR) Imaging CT scan - chest: report reviewed and image reviewed
[2022-06-15] MEDS: Omnipaque 350 MG/ML 100 ML BTL IJ (13:42)
[2022-06-15] MEDS: Normal Saline - Diluent 50 ML VIAL IJ (13:43)
[2022-06-15] MEDS: LORazepam 1 MG TAB PO (16:41)
[2022-06-15] MEDS: Normal Saline Flush 10 ML SYR IVP (16:43)
[2022-06-15] MEDS: VANCOMYCIN/WATER (PEG) 2 GM/400 ML BAG IVPB (17:28)
--- NOTE | 2022-06-15 19:11 | PGE_ITS ---
Date of Service Date of service: 06/15/22 Time of Service: 19:11 Assessment and Plan Assessment and plan (1) Consolidation of left lower lobe of lung: Status: Acute Assessment and plan: LLL pneumonia Zosyn Started on Vancomycin Urine antigens for: strep, legionella, histoplasma, blastomycosis sent Lab testing: ANTONIO, RF, anti-CCP, ANCA panel pending pulmonary recommends repeat chest CT in 2 months, FU w pulmonary Acapella Incentive Spirometer (2) CAD (coronary artery disease): Status: Chronic Assessment and plan: AICD - s/p cardiac arrest 2021 Continue Amiodarone Continue Aspirin Continue Clopidogrel Continue Metoprolol (3) COPD (chronic obstructive pulmonary disease): Status: Chronic Assessment and plan: Does occasionally smoke per chart. Encourage cessation. Albuterol/Duo neb Started on Tiotropium Olodaterol per recommendation of pulmonary (4) Cellulitis of leg, left: Status: Acute Assessment and plan: Red, warm area to left mid medial thigh; no fevers, states he fell and was on the ground for quite sometime needing help up (a few days ago) - scabbed area to left knee - that is a prosthetic knee. Zosyn coverage Dilaudid for pain CT scan for abscess of left upper leg negative for abscess (5) Anxiety: Status: Acute Assessment and plan: Very anxixous - not new; lorazepam oral PRN; conitnue Buspar (6) AICD (automatic cardioverter/defibrillator) present: Status: Acute Assessment and plan: No firing reported. Concern for bacteremia - Zosyn continued, vancomycin added. blood culture positive for gram positive cocci (7) Acute on chronic heart failure with reduced ejection fraction and diastolic dysfunction: Status: Acute Assessment and plan: NTProBNP of 459 Continue Bumetanide Monitor. Echocardiogram done in May 2022 (8) Morbid obesity: Status: Chronic Assessment and plan: OHS. Does not use CPAP at home Did not go pulmonary appointment (9) Angina pectoris: Status: Chronic Assessment and plan: Continue isosorbide Continue Nitroglycerin PRN Continue Ranolazine (10) GERD (gastroesophageal reflux disease): Status: Chronic Assessment and plan: Continue Pantoprazole (11) Hx of hyperlipidemia: Status: Acute Assessment and plan: Stable, continue home meds Atorvastatin 80 mg daily (12) Tobacco use disorder: Status: Acute Assessment and plan: Offer nicoderm. (13) Alcohol use disorder, severe, dependence: Assessment and plan: In remission. Continue folic acid (14) Drug dependence: Status: Acute Assessment and plan: Continue Suboxone (15) Depression: Status: Chronic Assessment and plan: Continue Citalopram (16) DVT prophylaxis: Status: Acute Assessment and plan: CTA for PE negative, BLE US negative For BMI > 50 increased enoxaparin dose by 30% every 12h (uptodate) - 60 mg BID Discussed with Dr Gaines (17) Discharge planning issues: Status: Acute Assessment and plan: Home when stable +/- HH Discussed with Dr Gaines Subjective Subjective Patient reports: no new complaints, tolerating a regular diet, voiding w/o difficulty, bowel movement, shortness of breath and afebrile; denies diarrhea or vomiting Interval history since last seen: Reports pain is less, breathing easier, SPO2s ? 94% w 2 LPM NC; seen by Dr Hoffman Exam Const General: cooperative and no acute distress Orientation: alert, awake and oriented x3 HENMT Head: normal to inspection Ears: hearing grossly normal bilaterally and external ears normal General nose exam: external nose normal Face and sinus: normal facial exam Mouth: oral mucosae normal Eyes General: appearance normal, both eyes and all related structures Eyelids: eyelids normal EOM: EOM intact bilaterally Neck Neck: normal visual inspection Lymphatic: no lymphadenopathy noted Chest Chest: normal inspection of the chest Resp Effort & Inspection: normal respiratory effort and able to speak in complete sentences Auscultation: crackles bilaterally in the lower lung [place] and diminished lung sounds bilaterally throughout Cardio Rate: regular rate Rhythm: regular rhythm GI Inspection: normal to inspection Palpation: soft, not firm, no guarding and nontender Auscultation: normal bowel sounds Neuro General: patient alert and patient awake Cognition: normal cognition Speech: speech normal Sensory Exam: no sensory deficits noted Extrem General: full ROM and capillary refill normal Other: significant bilateral lower extremity edema with left greater than right along with left mid thigh being acutely tender erythematous and significant edema noted to the thigh that is not present on right leg.? Otherwise there is bilateral pitting edema from the knees down.? Psych Appearance: grossly normal Mental Status: mental status grossly normal Speech and Movement: speech and movement normal Affect: normal affect Thought Process: normal Objective Last Vital Signs Temp 36 C L 02/13/23 17:17 Pulse 64 06/15/22 17:22 Resp 20 06/15/22 17:17 BP 133/83 06/15/22 17:17 Pulse Ox 95 06/15/22 17:17 Laboratory Results - last 24 hr 06/15/22 06/15/22 06/15/22 05:25 05:25 13:58 WBC 9.26 RBC 4.42 Hgb 12.9 L Hct 41.6 MCV 94 MCH 29.2 MCHC 31.0 L RDW 13.7 Plt Count 285 MPV 8.5 Immature Gran % 0.4 Neutrophils % 56.2 Lymphocytes % 25.8 Monocytes % 7.7 Eosinophils % 9.3 Basophils % 0.6 Nucleated RBC % 0.0 Absolute Neutrophils 5.20 Absolute Lymphocytes 2.39 Absolute Monocytes 0.71 Absolute Eosinophils 0.86 H Absolute Basophils 0.06 Sodium 137 Potassium 4.0 Chloride 96 L Carbon Dioxide 38.3 H Anion Gap 2.7 L BUN 12 Creatinine 0.9 Est GFR (CKD-EPI 2020) 102.12 Glucose 98 Calcium 8.9 Magnesium 1.9 C-Reactive Protein 2.00 H Blastomyces Ag Result Cancelled Blastomyces Ag Comment Cancelled Reviewed Pertinent PMH: Yes Time Spent with Patient Time Spent with Patient: 35-49 minutes Time was spent: preparing to see the patient(eg.review tests), obtaining and/or reviewing separately otained hiistory, ordering medications,tests, procedures, referring, communicating with other health progressive care unit registered nurse, indepentently interpreting results, counseling the patient and care coordination
[2022-06-15] MEDS: Atorvastatin 40 MG TAB 80 MG PO (19:29)
[2022-06-15 21:49] LABS: Rheumatoid Factor 9.2 IU/mL (<12.0)
[2022-06-16] VITALS (7 sets, daily range): BP systolic 118–127; BP diastolic 67–90; PULSE 58–72; RESP 18–20; TEMP 36–36.9; O2SAT 92–94
[2022-06-16] MEDS: LORazepam 1 MG TAB PO ×3 (02:31→17:58)
[2022-06-16] MEDS: PIPERACILLIN/TAZO 3.375 GM in Normal Saline 50 ML IVPB ×4 (03:45→23:15)
[2022-06-16] MEDS: VANCOMYCIN/WATER (PEG) 1.5 GM/300 ML BAG IVPB ×2 (04:40→14:38)
[2022-06-16 07:03] LABS: Abs Immature Grans 0.03 10^3/uL (0.0-0.06); Absolute Basophil Count 0.06 10^3/uL (0.0-0.2); Absolute Eosinophil Count 0.92 10^3/uL (0.0-0.7); Absolute Lymphocyte Count 1.62 10^3/uL (1.2-3.4); Absolute Monocyte Count 0.74 10^3/uL (0.1-0.8); Absolute Neutrophil Count 5.33 10^3/uL (1.2-6.7); Basophils % 0.7; Eosinophils % 10.6; HCT 41.7 % (40.0-50.0); HGB 12.9 g/dL (13.5-17.5); Immature Grans % 0.3; Lymphocytes % 18.6; MCH 29.6 pg (27.0-33.0); MCHC 30.9 % (32.0-36.0); MCV 96 fL (80-95); Monocytes % 8.5; Neutrophils % 61.3; Platelet Count 320 10^3/uL (130-400); RBC 4.36 10^6/uL (4.36-5.78); RDW 13.8 % (11.8-14.1); RDW-SD 47.8 fL
[2022-06-16 07:14] LABS: Anion Gap 4.2 mmol/L (3-11); BUN 11 mg/dL (7-18); CO2 37.8 mmol/L (21.0-32.0); Calcium 9.3 mg/dL (8.5-10.1); Chloride 97 mmol/L (98-107); Glucose 99 mg/dL (74-106); Magnesium 2.1 mg/dL (1.8-2.4); Potassium 3.7 mmol/L (3.5-5.1); Sodium 139 mmol/L (136-145)
[2022-06-16] MEDS: Tiotropium/Olodaterol 10 PUFF INHALER 2 PUFF IH (08:34)
[2022-06-16] MEDS: Amiodarone 200 MG TAB PO (08:44)
[2022-06-16] MEDS: Aspirin E.C. 81 MG TABEC PO (08:44)
[2022-06-16] MEDS: Buprenorphine/Naloxone 2 mg/0.5 mg FILM 1 EACH SL (08:45)
[2022-06-16] MEDS: Buprenorphine/Naloxone 8 mg/2 mg FILM 1 EACH SL (08:45)
[2022-06-16] MEDS: Bumetanide 1 MG TAB 2 MG PO (08:45)
[2022-06-16] MEDS: Clopidogrel 75 MG TAB PO (08:47)
[2022-06-16] MEDS: busPIRone 15 MG TAB PO ×2 (08:47→20:43)
[2022-06-16] MEDS: Citalopram 20 MG TAB PO (08:47)
[2022-06-16] MEDS: Folic Acid 1 MG TAB 2 MG PO (08:48)
[2022-06-16] MEDS: LORazepam 0.5 MG TAB PO ×2 (08:49→20:43)
[2022-06-16] MEDS: Isosorbide Mononitrate 30 MG TABCR PO (08:49)
[2022-06-16] MEDS: Gabapentin 300 MG CAP PO ×3 (08:49→20:43)
[2022-06-16] MEDS: Losartan 25 MG TAB PO (08:49)
[2022-06-16] MEDS: hydrALAZINE 25 MG TAB 50 MG PO ×3 (08:49→20:43)
[2022-06-16] MEDS: Metoprolol CR 25 MG TABCR PO (08:50)
[2022-06-16] MEDS: Ranolazine 500 MG TABCR PO ×2 (08:53→20:43)
[2022-06-16] MEDS: Pantoprazole 40 MG TABCR PO (08:53)
[2022-06-16] MEDS: Multivitamin w/Minerals TAB 1 TAB PO (08:53)
[2022-06-16] MEDS: Normal Saline Flush 10 ML SYR IVP ×2 (08:54→15:15)
[2022-06-16] MEDS: MORPHine 4 MG/ML SYR IVP ×3 (09:00→23:43)
[2022-06-16 09:02] LABS: Cyclic Citrullinated Peptide <2.5 U/mL (<5.0)
--- NOTE | 2022-06-16 09:02 | W.PULMPROG ---
Assessment and Plan Assessment and plan (1) COPD (chronic obstructive pulmonary disease): Status: Chronic (2) Tobacco use disorder: Status: Acute (3) Consolidation of left lower lobe of lung: Status: Acute Assessment and plan: This is a 51 yo co-morbid man with a LLL consolidation. This was present 6 days ago and seems to have progressed with a pleural effusion now present. His CT from January found no masses or nodules, nor effusions. This makes malignancy lower on the differential. A repeat CT from an admission in May was ordered by the hospitalist, however I cannot see any follow up on this scan at that time. His most recent scan is concerning for a progressive infection (as the patient has not been treated for any infection until this admission). It is most likely that this consolidation represents an evolving untreated infectious process. He is not overtly immunocompromised, although I would argue his obesity is a risk factor for the possibility of atypical infection. I will non-invasively test for bacterial and fungal infections as well as rule out other potential causes of waxing and waning pulmonary infiltrates, such as autoimmune disease. I will see him in my clinic in 2 months time with a repeat chest CT that I will order prior to this visit. I will start him on inhaler therapy for COPD and will plan on PFT's once he is less acutely ill. Pulmonary consolidation - agree with Zosyn - Urine antigens for: strep, legionella, histoplasma, blastomycosis pending - Lab testing: ANTONIO, ANCA panel; RF and anti-CCP negative - Fungitell pending - repeat chest CT in 2 months, will book appointment with me at this time as well Presumptive COPD - Stiolto - on nebs - DC with albuterol inhaler prn as well as Stiolto please - will work up more fully as an outpatient General Date Of Service Date of service: 06/16/22 Time of Service: 08:40 Reason for Consult: Abnormal chest CT Subjective 24 Hour Events: Leg CT with no abscess Note Note: Ray is feeling ok today. No significant changes in his breathing symptoms. He is sitting in chair comfortably upon muy assessment. Exam Narrative Exam Narrative: Gen:?NAD, normal respiratory effort, obese HENT:?PERRL Chest:?No respiratory distress, normal appearance of chest, clear to auscultation bilaterally, no crackles or wheezes, normal inspiratory effort Heart:?regular rate and rhythym, no murmurs, rubs or gallops Abdomen:?Non-distended, soft, non tender Extremities:?No clubbing, + bilateral edema with stasis changes. Left thigh erythematous patch and hardening of upper left thigh into pubis region. Neuro:?AAOx3 , non focal Psych:?cooperative, appropriate mental affect Objective Last Vital Signs Temp 36.1 C L 06/16/22 07:38 Pulse 72 06/16/22 08:55 Resp 19 06/16/22 07:38 BP 121/71 06/16/22 07:38 Pulse Ox 92 06/16/22 08:55 Laboratory Results - last 24 hr 06/15/22 06/16/22 06/16/22 13:58 06:23 06:23 WBC 8.70 RBC 4.36 Hgb 12.9 L Hct 41.7 MCV 96 H MCH 29.6 MCHC 30.9 L RDW 13.8 Plt Count 320 MPV 9.0 Immature Gran % 0.3 Neutrophils % 61.3 Lymphocytes % 18.6 Monocytes % 8.5 Eosinophils % 10.6 Basophils % 0.7 Nucleated RBC % 0.0 Absolute Neutrophils 5.33 Absolute Lymphocytes 1.62 Absolute Monocytes 0.74 Absolute Eosinophils 0.92 H Absolute Basophils 0.06 Sodium 139 Potassium 3.7 Chloride 97 L Carbon Dioxide 37.8 H Anion Gap 4.2 BUN 11 Creatinine 1.0 Est GFR (CKD-EPI 2020) 90.00 Glucose 99 Calcium 9.3 Magnesium 2.1 Blastomyces Ag Result Cancelled Blastomyces Ag Comment Cancelled Results Medications Medications: Active Medications Generic Name Dose Route Start Last Admin Trade Name Freq PRN Reason Stop Dose Admin Acetaminophen 0 mg 06/14/22 16:41 06/15/22 10:33 Acetaminophen 325 Mg Tab PO 650 mg Q4H PRN PRN Administration Al Hydrox/Mg Hydrox/Simethicone 30 ml 06/14/22 16:41 Mylanta Suspension 30 Ml Cup PO Q2H PRN PRN Albuterol Sulfate 2.5 mg 06/14/22 16:41 Albuterol 2.5 Mg/3 Ml Inh Soln Vial UPD Q2H PRN PRN Albuterol/Ipratropium 3 ml 06/14/22 16:41 Albuterol/Ipratropium 3 Ml Upd Vial UPD Q6H PRN PRN Amiodarone HCl 200 mg 06/15/22 08:30 06/16/22 08:44 Amiodarone 200 Mg Tab PO 200 mg DAILY ALFREDITO Administration Aspirin 81 mg 06/15/22 08:30 06/16/22 08:44 Aspirin E.C. 81 Mg Tabec PO 81 mg DAILY ALFREDITO Administration Atorvastatin Calcium 80 mg 06/15/22 20:00 06/15/22 19:29 Atorvastatin 40 Mg Tab PO 80 mg QPM ALFREDITO Administration Bumetanide 2 mg 06/14/22 20:00 06/16/22 08:45 Bumetanide 1 Mg Tab PO 2 mg BID ALFREDITO Administration Buprenorphine/Naloxone 1 each 06/15/22 08:30 06/16/22 08:45 Buprenorphine/Naloxone 2 Mg/0.5 Mg Film SL 1 each DAILY ALFREDITO Administration Buprenorphine/Naloxone 1 each 06/15/22 08:30 06/16/22 08:45 Buprenorphine/Naloxone 8 Mg/2 Mg Film SL 1 each DAILY ALFREDITO Administration Buspirone HCl 15 mg 06/14/22 20:00 06/16/22 08:47 Buspirone 15 Mg Tab PO 15 mg BID ALFREDITO Administration Citalopram Hydrobromide 20 mg 06/15/22 08:30 06/16/22 08:47 Citalopram 20 Mg Tab PO 20 mg DAILY ALFREDITO Administration Clopidogrel Bisulfate 75 mg 06/15/22 08:30 06/16/22 08:47 Clopidogrel 75 Mg Tab PO 75 mg DAILY ALFREDITO Administration Clotrimazole 40 gm/ Zinc Oxide 0 gm 06/15/22 12:01 06/16/22 08:54 40 gm/ Vitamin A/Vitamin D 40 TP 1 applicatio gm TID PRN PRN Administration Device 1 each 06/15/22 14:00 Inhaler, Assist Device [facility] DIRECTED [facility] Dimethicone/Zinc Oxide 0 gm 06/14/22 16:41 Branden Protect Cream 142 Gm Tube TP PRN PRN Docusate Sodium 100 mg 06/14/22 16:41 Docusate Sodium 100 Mg Cap PO TID PRN PRN Enoxaparin Sodium 60 mg 06/15/22 20:00 06/16/22 08:48 Enoxaparin 150 Mg/Ml Syr SC 60 mg Q12H ALFREDITO Administration Folic Acid 2 mg 06/15/22 08:30 06/16/22 08:48 Folic Acid 1 Mg Tab PO 2 mg DAILY ALFREDITO Administration Gabapentin 300 mg 06/14/22 21:30 06/16/22 08:49 Gabapentin 300 Mg Cap PO 300 mg TID ALFREDITO Administration Hydralazine HCl 50 mg 06/15/22 08:30 06/16/22 08:49 Hydralazine 25 Mg Tab PO 50 mg TID ALFREDITO Administration Sodium Chloride 500 mls @ 0 mls/hr 06/14/22 10:36 Saline 500ml Bag IV PRN PRN As Directed Sodium Chloride 500 mls @ 0 mls/hr 06/14/22 16:41 Saline 500ml Bag IV PRN PRN As Directed Vancomycin/PEG/NADA/Lysine/Water 1.5 gm in 300 mls @ 200 mls/hr 06/16/22 04:00 06/16/22 04:40 Vancocin Injection IVPB 200 mls/hr Q10H ALFREDITO Administration Protocol Per Protocol Piperacillin Sod/Tazobactam 50 mls @ 100 mls/hr 06/15/22 16:00 06/16/22 07:49 Sod 3.375 gm/ Sodium Chloride IVPB Infused Q6H ALFREDITO Infusion Protocol IV Miscellaneous Supplies 1 each 06/14/22 16:45 Iv Access IV DIRECTED ALFREDITO Iron/Minerals/Multivitamins 1 tab 06/15/22 08:30 06/16/22 08:53 Multivitamin W/Minerals Tab PO 1 tab DAILY ALFREDITO Administration Isosorbide Mononitrate 30 mg 06/15/22 08:30 06/16/22 08:49 Isosorbide Mononitrate 30 Mg Tabcr PO 30 mg DAILY ALFREDITO Administration Lorazepam 0.5 mg 06/14/22 20:00 06/16/22 08:49 Lorazepam 0.5 Mg Tab PO 0.5 mg BID ALFREDITO Administration Lorazepam 1 mg 06/14/22 18:40 06/16/22 02:31 Lorazepam 1 Mg Tab PO 1 mg TID PRN PRN Administration Losartan Potassium 25 mg 06/15/22 08:30 06/16/22 08:49 Losartan 25 Mg Tab PO 25 mg DAILY ALFREDITO Administration Magnesium Hydroxide 30 ml 06/14/22 16:41 Milk Of Magnesia 30 Ml Cup PO DAILY PRN PRN Metoprolol Succinate 25 mg 06/15/22 08:30 06/16/22 08:50 Metoprolol Cr 25 Mg Tabcr PO 25 mg DAILY ALFREDITO Administration Morphine Sulfate 4 mg 06/15/22 11:00 06/16/22 09:00 Morphine 4 Mg/Ml Syr IVP 4 mg Q4H PRN PRN Administration Nitroglycerin 0.4 mg 06/14/22 17:18 Nitroglycerin 0.4 Mg Tab SL PRN PRN Pantoprazole Sodium 40 mg 06/15/22 08:30 06/16/22 08:53 Pantoprazole 40 Mg Tabcr PO 40 mg DAILY ALFREDITO Administration Ranolazine 500 mg 06/14/22 20:00 06/16/22 08:53 Ranolazine 500 Mg Tabcr PO 500 mg BID ALFREDITO Administration Sodium Chloride 0 ml 06/14/22 16:41 06/16/22 08:54 Normal Saline Flush 10 Ml Syr IVP 20 ml PRN PRN Administration Tiotropium [place]/Olodaterol 2 puff 06/16/22 08:30 06/16/22 08:34 Tiotropium/Olodaterol 10 Puff Inhaler IH 2 inh DAILY ALFREDITO Administration Allergies hydromorphone [From Dilaudid] Allergy (Verified 06/14/22 10:37) Labs 06/16/22 06:23 06/16/22 06:23 Labs: 06/15/22 19:20 Nose MRSA Screen - Pending 06/14/22 17:05 Blood Blood Culture - Preliminary NO GROWTH 24 HOURS 06/14/22 17:20 Blood Blood Culture - Preliminary Gram Positive Cocci Laboratory Tests Range/Units 06/14/22 06/14/22 06/14/22 10:55 10:55 10:55 WBC (4.4-10.8) 10^3/uL 9.42 RBC (4.36-5.78) 10^6/uL 4.40 Hgb (13.5-17.5) g/dL 12.9 L Hct (40.0-50.0) % 41.7 MCV (80-95) fL 95 MCH (27.0-33.0) pg 29.3 MCHC (32.0-36.0) % 30.9 L RDW (11.8-14.1) % 13.5 Plt Count (130-400) 10^3/uL 302 MPV (8.0-11.0) fL 8.8 Immature Gran % 0.3 Neutrophils % 62.7 Lymphocytes % 17.7 Monocytes % 8.0 Eosinophils % 10.6 Basophils % 0.7 Nucleated RBC % (0.0-0.3) % 0.0 Absolute Neutrophils (1.2-6.7) 10^3/uL 5.90 Absolute Lymphocytes (1.2-3.4) 10^3/uL 1.67 Absolute Monocytes (0.1-0.8) 10^3/uL 0.75 Absolute Eosinophils (0.0-0.7) 10^3/uL 1.00 H Absolute Basophils (0.0-0.2) 10^3/uL 0.07 PT (9.3-11.0) sec 11.0 INR (0.9-1.1) 1.1 APTT (21.5-31.9) sec 25.2 D-Dimer (<500) ng/mlFEU 1896 H Sodium (136-145) mmol/L 139 Potassium (3.5-5.1) mmol/L 4.1 Chloride (98-107) mmol/L 101 Carbon Dioxide (21.0-32.0) mmol/L 37.3 H Anion Gap (3-11) mmol/L 0.7 L BUN (7-18) mg/dL 11 Creatinine (0.70-1.30) mg/dL 0.9 Est GFR (CKD-EPI 2020) (mL/min/1.73m2) 102.12 Glucose (74-106) mg/dL 120 H Calcium (8.5-10.1) mg/dL 9.0 Magnesium (1.8-2.4) mg/dL 2.0 Total Bilirubin (0.2-1.0) mg/dL 0.6 AST (15-37) U/L 32 ALT (16-63) U/L 31 Alkaline Phosphatase (46-116) U/L 91 Troponin I (<or=60) ng/L < 50 C-Reactive Protein (0.0-0.3) mg/dL NT-Pro-B Natriuret Pep (<300) pg/mL 459 H Total Protein (6.4-8.2) g/dL 7.6 Albumin (3.4-5.0) g/dL 3.0 L Procalcitonin ng/mL Blastomyces Ag Result Blastomyces Ag Comment COVID-19 Source SARS-CoV-2 (PCR) (Negative) Range/Units 06/14/22 06/14/22 06/14/22 12:35 13:47 13:47 WBC (4.4-10.8) 10^3/uL RBC (4.36-5.78) 10^6/uL Hgb (13.5-17.5) g/dL Hct (40.0-50.0) % MCV (80-95) fL MCH (27.0-33.0) pg MCHC (32.0-36.0) % RDW (11.8-14.1) % Plt Count (130-400) 10^3/uL MPV (8.0-11.0) fL Immature Gran % Neutrophils % Lymphocytes % Monocytes % Eosinophils % Basophils % Nucleated RBC % (0.0-0.3) % Absolute Neutrophils (1.2-6.7) 10^3/uL Absolute Lymphocytes (1.2-3.4) 10^3/uL Absolute Monocytes (0.1-0.8) 10^3/uL Absolute Eosinophils (0.0-0.7) 10^3/uL Absolute Basophils (0.0-0.2) 10^3/uL PT (9.3-11.0) sec INR (0.9-1.1) APTT (21.5-31.9) sec D-Dimer (<500) ng/mlFEU Sodium (136-145) mmol/L Potassium (3.5-5.1) mmol/L Chloride (98-107) mmol/L Carbon Dioxide (21.0-32.0) mmol/L Anion Gap (3-11) mmol/L BUN (7-18) mg/dL Creatinine (0.70-1.30) mg/dL Est GFR (CKD-EPI 2020) (mL/min/1.73m2) Glucose (74-106) mg/dL Calcium (8.5-10.1) mg/dL Magnesium (1.8-2.4) mg/dL Total Bilirubin (0.2-1.0) mg/dL AST (15-37) U/L ALT (16-63) U/L Alkaline Phosphatase (46-116) U/L Troponin I (<or=60) ng/L < 50 C-Reactive Protein (0.0-0.3) mg/dL 2.08 H NT-Pro-B Natriuret Pep (<300) pg/mL Total Protein (6.4-8.2) g/dL Albumin (3.4-5.0) g/dL Procalcitonin ng/mL Blastomyces Ag Result Blastomyces Ag Comment COVID-19 Source Nasal/Nares SARS-CoV-2 (PCR) (Negative) Negative Range/Units 06/14/22 06/15/22 06/15/22 16:40 05:25 05:25 WBC (4.4-10.8) 10^3/uL 9.26 RBC (4.36-5.78) 10^6/uL 4.42 Hgb (13.5-17.5) g/dL 12.9 L Hct (40.0-50.0) % 41.6 MCV (80-95) fL 94 MCH (27.0-33.0) pg 29.2 MCHC (32.0-36.0) % 31.0 L RDW (11.8-14.1) % 13.7 Plt Count (130-400) 10^3/uL 285 MPV (8.0-11.0) fL 8.5 Immature Gran % 0.4 Neutrophils % 56.2 Lymphocytes % 25.8 Monocytes % 7.7 Eosinophils % 9.3 Basophils % 0.6 Nucleated RBC % (0.0-0.3) % 0.0 Absolute Neutrophils (1.2-6.7) 10^3/uL 5.20 Absolute Lymphocytes (1.2-3.4) 10^3/uL 2.39 Absolute Monocytes (0.1-0.8) 10^3/uL 0.71 Absolute Eosinophils (0.0-0.7) 10^3/uL 0.86 H Absolute Basophils (0.0-0.2) 10^3/uL 0.06 PT (9.3-11.0) sec INR (0.9-1.1) APTT (21.5-31.9) sec D-Dimer (<500) ng/mlFEU Sodium (136-145) mmol/L 137 Potassium (3.5-5.1) mmol/L 4.0 Chloride (98-107) mmol/L 96 L Carbon Dioxide (21.0-32.0) mmol/L 38.3 H Anion Gap (3-11) mmol/L 2.7 L BUN (7-18) mg/dL 12 Creatinine (0.70-1.30) mg/dL 0.9 Est GFR (CKD-EPI 2020) (mL/min/1.73m2) 102.12 Glucose (74-106) mg/dL 98 Calcium (8.5-10.1) mg/dL 8.9 Magnesium (1.8-2.4) mg/dL 1.9 Total Bilirubin (0.2-1.0) mg/dL AST (15-37) U/L ALT (16-63) U/L Alkaline Phosphatase (46-116) U/L Troponin I (<or=60) ng/L C-Reactive Protein (0.0-0.3) mg/dL 2.00 H NT-Pro-B Natriuret Pep (<300) pg/mL Total Protein (6.4-8.2) g/dL Albumin (3.4-5.0) g/dL Procalcitonin ng/mL < 0.1 Blastomyces Ag Result Blastomyces Ag Comment COVID-19 Source SARS-CoV-2 (PCR) (Negative) Range/Units 06/15/22 06/16/22 06/16/22 13:58 06:23 06:23 WBC (4.4-10.8) 10^3/uL 8.70 RBC (4.36-5.78) 10^6/uL 4.36 Hgb (13.5-17.5) g/dL 12.9 L Hct (40.0-50.0) % 41.7 MCV (80-95) fL 96 H MCH (27.0-33.0) pg 29.6 MCHC (32.0-36.0) % 30.9 L RDW (11.8-14.1) % 13.8 Plt Count (130-400) 10^3/uL 320 MPV (8.0-11.0) fL 9.0 Immature Gran % 0.3 Neutrophils % 61.3 Lymphocytes % 18.6 Monocytes % 8.5 Eosinophils % 10.6 Basophils % 0.7 Nucleated RBC % (0.0-0.3) % 0.0 Absolute Neutrophils (1.2-6.7) 10^3/uL 5.33 Absolute Lymphocytes (1.2-3.4) 10^3/uL 1.62 Absolute Monocytes (0.1-0.8) 10^3/uL 0.74 Absolute Eosinophils (0.0-0.7) 10^3/uL 0.92 H Absolute Basophils (0.0-0.2) 10^3/uL 0.06 PT (9.3-11.0) sec INR (0.9-1.1) APTT (21.5-31.9) sec D-Dimer (<500) ng/mlFEU Sodium (136-145) mmol/L 139 Potassium (3.5-5.1) mmol/L 3.7 Chloride (98-107) mmol/L 97 L Carbon Dioxide (21.0-32.0) mmol/L 37.8 H Anion Gap (3-11) mmol/L 4.2 BUN (7-18) mg/dL 11 Creatinine (0.70-1.30) mg/dL 1.0 Est GFR (CKD-EPI 2020) (mL/min/1.73m2) 90.00 Glucose (74-106) mg/dL 99 Calcium (8.5-10.1) mg/dL 9.3 Magnesium (1.8-2.4) mg/dL 2.1 Total Bilirubin (0.2-1.0) mg/dL AST (15-37) U/L ALT (16-63) U/L Alkaline Phosphatase (46-116) U/L Troponin I (<or=60) ng/L C-Reactive Protein (0.0-0.3) mg/dL NT-Pro-B Natriuret Pep (<300) pg/mL Total Protein (6.4-8.2) g/dL Albumin (3.4-5.0) g/dL Procalcitonin ng/mL Blastomyces Ag Result Cancelled Blastomyces Ag Comment Cancelled COVID-19 Source SARS-CoV-2 (PCR) (Negative)
[2022-06-16 15:12] LABS: ANA Interpretation Positive (Negative); ANA Titer Pattern 1:320 Speckled
--- NOTE | 2022-06-16 16:13 | W.EDPROG ---
Date of service: 06/14/22 Time of Service: 16:14 Medical Decision Making Care is accepted and transition from [facility] pending admission to the hospital, I personally evaluated the patient and am questioning a cellulitis on his inner thigh, he has been treated empirically for DVT with elevated D-dimer pending ultrasound as this is not available to us on weekends and I will also initiate Zosyn to treat patient for a possible infiltrate on CT scan and cellulitis on his leg Case was discussed with Dr. Gaines who admits patients to our service Patient has been cooperative throughout evaluation, secondary to capacity issues patient is boarding in the emergency department but will be admitted under Dr. Gaines pending admission likely in the morning Sign Out Sign Out Data: Sign Out Comment: Patient pending bed availability for admission for DVT with hypoxia and shortness of breath. Plan of care if no bed availability is to consult with hospitalist for boarding patient in the emergency department to continue Lovenox every 12 along with monitoring and symptomatic treatment as needed. Last updated by Tyrone Blackman NP at 06/14/22 16:00 Discharge Plan Discharge Details Chief Complaint: SOB Admit Date/Time: 06/14/22 16:41 Admit Provider: Tanja Gaines Attending Provider: Tanja Gaines Primary Care Provider: TIKI DOMINGUEZ ED Provider: Mary Hankins Discharge Data Discharge Date/Time-TO BE ENTERED AT DEPARTURE: 06/16/22 15:44
--- NOTE | 2022-06-16 17:09 | PDOC.CMIN ---
- If Service Date Differs Date of service: 06/16/22 Time of Service: 17:09 Care Management Initial Assess REASON FOR HOSPITALIZATION:: CHF, Hypoxia, Cellulitis LLE PAST MEDICAL HISTORY/PAST SURGICAL HISTORY:: Acute on chronic heart failure with reduced ejection fraction and diastolic dysfunction (Acute). Ischemic cardiomyopathy (Acute). Afib (Chronic). Tobacco use disorder (Acute). Hx of hyperlipidemia (Acute). HTN (hypertension) (Chronic). CHF (congestive heart failure) (Chronic). CAD (coronary artery disease) (Chronic). Medical History. Alcohol use disorder, severe, dependence. [facility] 01/21. Cardiac arrest. COPD (chronic obstructive pulmonary disease). Dental infection. Drug dependence. ETOH abuse. Exertional chest pain. HLD (hyperlipidemia). Homelessness. Morbid obesity. Pacemaker. Surgical History. AICD (automatic cardioverter/defibrillator) present. placed at [facility] for ischemic dilated cardiomyopathy [employer] Margaret MACDONALD 01/27/21 . History of coronary artery stent placement. History of hernia repair. History of right knee joint replacement. History of tonsillectomy PREVIOUS FUNCTIONAL STATUS/SOCIAL/FAMILY SUPPORTS:: Pramod lives in [place], currently at the [facility], as he is going through a separation. He has two adult children who live out of state. He is currently not employed, due to his medical needs. He is independent at baseline. ADVANCE DIRECTIVES:: Not on file. Has patient been provided with info about the portal/API?: Yes Did the patient sign up for the portal?: No CODE STATUS:: Full Code INSURANCE COVERAGE / FINANCIAL ISSUES:: [employer] CURRENT HOME/COMMUNITY SERVICES/EQUIPMENT:: [place] PRIMARY CARE PHYSICIAN:: Gerri Silverman POTENTIAL DISCHARGE NEEDS:: Evaluations for further needs, CHF education, follow up appointments. PATIENT/FAMILY EDUCATION NEEDS:: Review discharge instructions and limitations, discussion of self care needs including ask me three. ANTICIPATED BARRIERS TO DISCHARGE:: None identified. TRANSPORTATION:: Via private vehicle PLAN:: Pramod will follow up with community providers and discharge plan of care as prescribed. New RX's are transmitted to [facility]. He will transport home via private vehicle.
[2022-06-16 18:56] LABS: Myeloperoxidase Ab IgG <0.2 U; Proteinase 3 Ab (PR3) <0.2 U
--- NOTE | 2022-06-16 19:42 | PGE_ITS ---
Date of Service Date of service: 06/16/22 Time of Service: 13:30 Assessment and Plan Assessment and plan (1) Consolidation of left lower lobe of lung: Status: Acute Assessment and plan: LLL pneumonia Zosyn Started on Vancomycin MRSA swab pending Urine antigens for: strep, legionella, histoplasma, blastomycosis sent Lab testing: ANTONIO, RF, anti-CCP, ANCA panel pending pulmonary recommends repeat chest CT in 2 months, FU w pulmonary Acapella Incentive Spirometer (2) CAD (coronary artery disease): Status: Chronic Assessment and plan: AICD - s/p cardiac arrest 2021 Continue Amiodarone Continue Aspirin Continue Clopidogrel Continue Metoprolol (3) COPD (chronic obstructive pulmonary disease): Status: Chronic Assessment and plan: Does occasionally smoke per chart. Encourage cessation. Albuterol/Duo neb Started on Tiotropium Olodaterol per recommendation of pulmonary (4) Cellulitis of leg, left: Status: Acute Assessment and plan: Red, warm area to left mid medial thigh; no fevers, states he fell and was on the ground for quite sometime needing help up (a few days ago) - scabbed area to left knee - that is a prosthetic knee. Zosyn coverage Dilaudid for pain CT scan for abscess of left upper leg negative for abscess (5) Anxiety: Status: Acute Assessment and plan: Very anxixous - not new; lorazepam oral PRN; conitnue Buspar (6) AICD (automatic cardioverter/defibrillator) present: Status: Acute Assessment and plan: No firing reported. Concern for bacteremia - Zosyn continued, vancomycin added since blood culture positive for gram positive cocci (1/4 bottles on admission) (7) Acute on chronic heart failure with reduced ejection fraction and diastolic dysfunction: Status: Acute Assessment and plan: NTProBNP of 459 Continue Bumetanide Monitor. Echocardiogram done in May 2022 (8) Morbid obesity: Status: Chronic Assessment and plan: OHS. Does not use CPAP at home Did not go to pulmonary appointment (9) Angina pectoris: Status: Chronic Assessment and plan: Continue isosorbide Continue Nitroglycerin PRN Continue Ranolazine (10) GERD (gastroesophageal reflux disease): Status: Chronic Assessment and plan: Continue Pantoprazole (11) Hx of hyperlipidemia: Status: Acute Assessment and plan: Stable, continue home meds Atorvastatin 80 mg daily (12) Tobacco use disorder: Status: Acute Assessment and plan: Offer nicoderm. (13) Alcohol use disorder, severe, dependence: Assessment and plan: In remission. Continue folic acid (14) Drug dependence: Status: Acute Assessment and plan: Continue Suboxone (15) Depression: Status: Chronic Assessment and plan: Continue Citalopram (16) DVT prophylaxis: Status: Acute Assessment and plan: CTA for PE negative, BLE US negative For BMI > 50 increased enoxaparin dose by 30% every 12h (uptodate) - 60 mg BID Discussed with Dr Gaines (17) Discharge planning issues: Status: Acute Assessment and plan: Home when stable +/- HH Discussed with Dr Gaines Subjective Subjective Patient reports: no new complaints, tolerating a regular diet, bowel movement and afebrile; denies diarrhea, blood in stool, vomiting or shortness of breath Interval history since last seen: Sitting up in a chair, comfortable, states he slept all night in the chair, but chose that and was comfortable. Exam Narrative Exam Narrative: Awake, alert, conversant, pleasant sitting in the chair, reclined. Const General: cooperative and no acute distress Orientation: alert, awake and oriented x3 HENMT Head: normal to inspection Ears: hearing grossly normal bilaterally and external ears normal General nose exam: external nose normal Face and sinus: normal facial exam Mouth: oral mucosae normal Eyes General: appearance normal, both eyes and all related structures Eyelids: eyelids normal EOM: EOM intact bilaterally Neck Neck: normal visual inspection Lymphatic: no lymphadenopathy noted Chest Chest: normal inspection of the chest Resp Effort & Inspection: normal respiratory effort and able to speak in complete sentences Auscultation: crackles bilaterally in the lower lung mans[place] and diminished lung sounds bilaterally throughout Cardio Rate: regular rate Rhythm: regular rhythm GI Inspection: normal to inspection Palpation: soft, not firm, no guarding and nontender Auscultation: normal bowel sounds Neuro General: patient alert and patient awake Cognition: normal cognition Speech: speech normal Sensory Exam: no sensory deficits noted Extrem General: full ROM Other: significant bilateral lower extremity edema with left greater than right along with left mid thigh being acutely tender erythematous and significant edema noted to the thigh that is not present on right leg.? Otherwise there is bilateral pitting edema from the knees down.? Psych Appearance: grossly normal Mental Status: mental status grossly normal Speech and Movement: speech and movement normal Affect: normal affect Thought Process: normal Objective Last Vital Signs Temp 36.0 C L 06/16/22 19:25 Pulse 58 L 06/16/22 19:25 Resp 20 06/16/22 19:25 BP 119/67 06/16/22 19:25 Pulse Ox 93 06/16/22 19:25 Laboratory Results - last 24 hr 06/15/22 06/15/22 06/16/22 13:58 13:58 06:23 WBC RBC Hgb Hct MCV MCH MCHC RDW Plt Count MPV Immature Gran % Neutrophils % Lymphocytes % Monocytes % Eosinophils % Basophils % Nucleated RBC % Absolute Neutrophils Absolute Lymphocytes Absolute Monocytes Absolute Eosinophils Absolute Basophils Sodium 139 Potassium 3.7 Chloride 97 L Carbon Dioxide 37.8 H Anion Gap 4.2 BUN 11 Creatinine 1.0 Est GFR (CKD-EPI 2020) 90.00 Glucose 99 Calcium 9.3 Magnesium 2.1 Rheumatoid Factor 9.2 Cyclic Citrull Peptide <2.5 ANTONIO Titer 1:320 Speckled ANTONIO Titer 2 Not Applicable ANTONIO Titer 3 Not Applicable ANTONIO Interpretation Positive A 06/16/22 06:23 WBC 8.70 RBC 4.36 Hgb 12.9 L Hct 41.7 MCV 96 H MCH 29.6 MCHC 30.9 L RDW 13.8 Plt Count 320 MPV 9.0 Immature Gran % 0.3 Neutrophils % 61.3 Lymphocytes % 18.6 Monocytes % 8.5 Eosinophils % 10.6 Basophils % 0.7 Nucleated RBC % 0.0 Absolute Neutrophils 5.33 Absolute Lymphocytes 1.62 Absolute Monocytes 0.74 Absolute Eosinophils 0.92 H Absolute Basophils 0.06 Sodium Potassium Chloride Carbon Dioxide Anion Gap BUN Creatinine Est GFR (CKD-EPI 2020) Glucose Calcium Magnesium Rheumatoid Factor Cyclic Citrull Peptide ANTONIO Titer ANTONIO Titer 2 ANTONIO Titer 3 ANTONIO Interpretation Time Spent with Patient Time Spent with Patient: 35-49 minutes Time was spent: preparing to see the patient(eg.review tests), obtaining and/or reviewing separately otained hiistory, ordering medications,tests, procedures, referring, communicating with other health critical care nurse practitioner, indepentently interpreting results, counseling the patient and care coordination
[2022-06-16 20:17] LABS: Legionella Ag Detection Urine Negative (Negative)
[2022-06-16] MEDS: Atorvastatin 40 MG TAB 80 MG PO (20:43)
[2022-06-17 00:43] LABS: Fungitell Qualitative Negative (Negative); Fungitell Quantitative Value <31 pg/mL (<60 pg/mL)
[2022-06-17 00:45] VITALS: BP 111/69; PULSE 62; RESP 24; TEMP 36.4; O2SAT 94
[2022-06-17] MEDS: VANCOMYCIN/WATER (PEG) 1.5 GM/300 ML BAG IVPB (00:48)
[2022-06-17] MEDS: LORazepam 1 MG TAB PO ×2 (04:54→13:29)
[2022-06-17] MEDS: PIPERACILLIN/TAZO 3.375 GM in Normal Saline 50 ML IVPB ×2 (04:54→09:55)
[2022-06-17 04:57] VITALS: BP 107/74; PULSE 65; RESP 20; TEMP 36.4; O2SAT 94
[2022-06-17 06:21] LABS: Abs Immature Grans 0.03 10^3/uL (0.0-0.06); Absolute Basophil Count 0.07 10^3/uL (0.0-0.2); Absolute Eosinophil Count 0.95 10^3/uL (0.0-0.7); Absolute Lymphocyte Count 1.78 10^3/uL (1.2-3.4); Absolute Monocyte Count 0.84 10^3/uL (0.1-0.8); Absolute Neutrophil Count 4.95 10^3/uL (1.2-6.7); Basophils % 0.8; HCT 40.1 % (40.0-50.0); HGB 12.5 g/dL (13.5-17.5); Immature Grans % 0.3; Lymphocytes % 20.6; MCH 29.7 pg (27.0-33.0); MCHC 31.2 % (32.0-36.0); MCV 95 fL (80-95); MPV 9.1 fL (8.0-11.0); Monocytes % 9.7; Neutrophils % 57.6; Platelet Count 293 10^3/uL (130-400); RBC 4.21 10^6/uL (4.36-5.78); RDW 13.9 % (11.8-14.1); RDW-SD 47.7 fL; WBC 8.62 10^3/uL (4.4-10.8)
--- NOTE | 2022-06-17 07:06 | PGE_ITS ---
Assessment and Plan Assessment and plan (1) COPD (chronic obstructive pulmonary disease): Status: Chronic (2) Tobacco use disorder: Status: Acute (3) Consolidation of left lower lobe of lung: Status: Acute Assessment and plan: This is a 51 yo co-morbid man with a LLL consolidation. This was present several days ago and seems to have progressed with a pleural effusion now present. His CT from January found no masses or nodules, nor effusions. This makes malignancy lower on the differential. A repeat CT from an admission in May was ordered by the hospitalist, however I cannot see any follow up on this scan at that time. His most recent scan is concerning for a progressive infection (as the patient has not been treated for any infection until this admission). It is most likely that this consolidation represents an evolving untreated infectious process. He is not overtly immunocompromised, although I would argue his obesity is a risk factor for the possibility of atypical infection. I will non-invasively test for bacterial and fungal infections as well as rule out other potential causes of waxing and waning pulmonary infiltrates, such as autoimmune disease. I will see him in my clinic in 2 months time with a repeat chest CT that I will order prior to this visit. I will start him on inhaler therapy for COPD and will plan on PFT's once he is less acutely ill. Pulmonary consolidation - agree with Zosyn - can discharge on Levaquin to complete a 7 day course when ready for discharge - Urine antigens for: strep, histoplasma, blastomycosis pending - added more immunologic testing given positive ANTONIO - Fungitell negative - repeat chest CT in 2 months, will book appointment with me at this time as well Presumptive COPD - Stiolto - on [facility] with albuterol inhaler prn as well as Stiolto please - will work up more fully as an outpatient General Date Of Service Date of service: 06/17/22 Time of Service: 07:07 Reason for Consult: Abnormal chest CT Subjective 24 Hour Events: His ANTONIO did return positive at 1:320 with a speckled pattern. RA serologies were negative. Fungitell and urine antigen for legionella is negative Note Note: Pramod is doing well. He is very anxious to get home. Denies any breathing difficulty this morning. Exam Narrative Exam Narrative: Gen:?NAD, normal respiratory effort, obese HENT:?PERRL Chest:?No respiratory distress, normal appearance of chest, clear to auscultation bilaterally, no crackles or wheezes, normal inspiratory effort Heart:?regular rate and rhythym, no murmurs, rubs or gallops Abdomen:?Non-distended, soft, non tender Extremities:?No clubbing, + bilateral edema with stasis changes. Left thigh erythematous patch and hardening of upper left thigh into pubis region. Neuro:?AAOx3 , non focal Psych:?cooperative, appropriate mental affect Objective Last Vital Signs Temp 36.4 C L 06/17/22 04:57 Pulse 65 06/17/22 04:57 Resp 20 06/17/22 04:57 BP 107/74 06/17/22 04:57 Pulse Ox 94 06/17/22 04:57 Laboratory Results - last 24 hr 06/15/22 06/15/22 06/16/22 13:58 13:58 06:23 WBC RBC Hgb Hct MCV MCH MCHC RDW Plt Count MPV Immature Gran % Neutrophils % Lymphocytes % Monocytes % Eosinophils % Basophils % Nucleated RBC % Absolute Neutrophils Absolute Lymphocytes Absolute Monocytes Absolute Eosinophils Absolute Basophils Sodium 139 Potassium 3.7 Chloride 97 L Carbon Dioxide 37.8 H Anion Gap 4.2 BUN 11 Creatinine 1.0 Est GFR (CKD-EPI 2020) 90.00 Glucose 99 Calcium 9.3 Magnesium 2.1 Rheumatoid Factor 9.2 Cyclic Citrull Peptide <2.5 ANTONIO Titer 1:320 Speckled ANTONIO Titer 2 Not Applicable ANTONIO Titer 3 Not Applicable ANTONIO Interpretation Positive A 06/16/22 06/17/22 06:23 06:08 WBC 8.70 8.62 RBC 4.36 4.21 L Hgb 12.9 L 12.5 L Hct 41.7 40.1 MCV 96 H 95 MCH 29.6 29.7 MCHC 30.9 L 31.2 L RDW 13.8 13.9 Plt Count 320 293 MPV 9.0 9.1 Immature Gran % 0.3 0.3 Neutrophils % 61.3 57.6 Lymphocytes % 18.6 20.6 Monocytes % 8.5 9.7 Eosinophils % 10.6 11.0 Basophils % 0.7 0.8 Nucleated RBC % 0.0 0.0 Absolute Neutrophils 5.33 4.95 Absolute Lymphocytes 1.62 1.78 Absolute Monocytes 0.74 0.84 H Absolute Eosinophils 0.92 H 0.95 H Absolute Basophils 0.06 0.07 Sodium Potassium Chloride Carbon Dioxide Anion Gap BUN Creatinine Est GFR (CKD-EPI 2020) Glucose Calcium Magnesium Rheumatoid Factor Cyclic Citrull Peptide ANTONIO Titer ANTONIO Titer 2 ANTONIO Titer 3 ANTONIO Interpretation Results Medications Medications: Active Medications Generic Name Dose Route Start Last Admin Trade Name Freq PRN Reason Stop Dose Admin Acetaminophen 0 mg 06/14/22 16:41 06/15/22 10:33 Acetaminophen 325 Mg Tab PO 650 mg Q4H PRN PRN Administration Al Hydrox/Mg Hydrox/Simethicone 30 ml 06/14/22 16:41 Mylanta Suspension 30 Ml Cup PO Q2H PRN PRN Albuterol Sulfate 2.5 mg 06/14/22 16:41 Albuterol 2.5 Mg/3 Ml Inh Soln Vial UPD Q2H PRN PRN Albuterol/Ipratropium 3 ml 06/14/22 16:41 Albuterol/Ipratropium 3 Ml Upd Vial UPD Q6H PRN PRN Amiodarone HCl 200 mg 06/15/22 08:30 06/16/22 08:44 Amiodarone 200 Mg Tab PO 200 mg DAILY ALFREDITO Administration Aspirin 81 mg 06/15/22 08:30 06/16/22 08:44 Aspirin E.C. 81 Mg Tabec PO 81 mg DAILY ALFREDITO Administration Atorvastatin Calcium 80 mg 06/15/22 20:00 06/16/22 20:43 Atorvastatin 40 Mg Tab PO 80 mg QPM ALFREDITO Administration Bumetanide 2 mg 06/14/22 20:00 06/16/22 20:44 Bumetanide 1 Mg Tab PO Not Given BID ALFREDITO Buprenorphine/Naloxone 1 each 06/15/22 08:30 06/16/22 08:45 Buprenorphine/Naloxone 2 Mg/0.5 Mg Film SL 1 each DAILY ALFREDITO Administration Buprenorphine/Naloxone 1 each 06/15/22 08:30 06/16/22 08:45 Buprenorphine/Naloxone 8 Mg/2 Mg Film SL 1 each DAILY ALFREDITO Administration Buspirone HCl 15 mg 06/14/22 20:00 06/16/22 20:43 Buspirone 15 Mg Tab PO 15 mg BID ALFREDITO Administration Citalopram Hydrobromide 20 mg 06/15/22 08:30 06/16/22 08:47 Citalopram 20 Mg Tab PO 20 mg DAILY ALFREDITO Administration Clopidogrel Bisulfate 75 mg 06/15/22 08:30 06/16/22 08:47 Clopidogrel 75 Mg Tab PO 75 mg DAILY [facility] Administration Clotrimazole 40 gm/ Zinc Oxide 0 gm 06/15/22 12:01 06/16/22 08:54 40 gm/ Vitamin A/Vitamin D 40 TP 1 applicatio gm TID PRN PRN Administration Device 1 each 06/15/22 14:00 Inhaler, Assist Device DIRECTED [facility] Dimethicone/Zinc Oxide 0 gm 06/14/22 16:41 Branden Protect Cream 142 Gm Tube TP PRN PRN Docusate Sodium 100 mg 06/14/22 16:41 Docusate Sodium 100 Mg Cap PO TID PRN PRN Enoxaparin Sodium 60 mg 06/15/22 20:00 06/16/22 20:43 Enoxaparin 150 Mg/Ml Syr SC 60 mg Q12H ALFREDITO Administration Folic Acid 2 mg 06/15/22 08:30 06/16/22 08:48 Folic Acid 1 Mg Tab PO 2 mg DAILY ALFREDITO Administration Gabapentin 300 mg 06/14/22 21:30 06/16/22 20:43 Gabapentin 300 Mg Cap PO 300 mg TID ALFREDITO Administration Hydralazine HCl 50 mg 06/15/22 08:30 06/16/22 20:43 Hydralazine 25 Mg Tab PO 50 mg TID ALFREDITO Administration Sodium Chloride 500 mls @ 0 mls/hr 06/14/22 10:36 Saline 500ml Bag IV PRN PRN As Directed Sodium Chloride 500 mls @ 0 mls/hr 06/14/22 16:41 Saline 500ml Bag IV PRN PRN As Directed Vancomycin/PEG/NADA/Lysine/Water 1.5 gm in 300 mls @ 200 mls/hr 06/16/22 04:00 06/17/22 02:20 Vancocin Injection IVPB Infused Q10H [facility] Infusion Protocol Per Protocol Piperacillin Sod/Tazobactam 50 mls @ 100 mls/hr 06/15/22 16:00 06/17/22 04:54 Sod 3.375 gm/ Sodium Chloride IVPB 100 mls/hr Q6H [facility] Administration Protocol IV Miscellaneous Supplies 1 each 06/14/22 16:45 Iv Access IV DIRECTED [facility] Iron/Minerals/Multivitamins 1 tab 06/15/22 08:30 06/16/22 08:53 Multivitamin W/Minerals Tab PO 1 tab DAILY ALFREDITO Administration Isosorbide Mononitrate 30 mg 06/15/22 08:30 06/16/22 08:49 Isosorbide Mononitrate 30 Mg Tabcr PO 30 mg DAILY ALFREDITO Administration Lorazepam 0.5 mg 06/14/22 20:00 06/16/22 20:43 Lorazepam 0.5 Mg Tab PO 0.5 mg BID ALFREDITO Administration Lorazepam 1 mg 06/14/22 18:40 06/17/22 04:54 Lorazepam 1 Mg Tab PO 1 mg TID PRN PRN Administration Losartan Potassium 25 mg 06/15/22 08:30 06/16/22 08:49 Losartan 25 Mg Tab PO 25 mg DAILY ALFREDITO Administration Magnesium Hydroxide 30 ml 06/14/22 16:41 Milk Of Magnesia 30 Ml Cup PO DAILY PRN PRN Metoprolol Succinate 25 mg 06/15/22 08:30 06/16/22 08:50 Metoprolol Cr 25 Mg Tabcr PO 25 mg DAILY ALFREDITO Administration Morphine Sulfate 4 mg 06/15/22 11:00 06/16/22 23:43 Morphine 4 Mg/Ml Syr IVP 4 mg Q4H PRN PRN Administration Nitroglycerin 0.4 mg 06/14/22 17:18 Nitroglycerin 0.4 Mg Tab SL PRN PRN Pantoprazole Sodium 40 mg 06/15/22 08:30 06/16/22 08:53 Pantoprazole 40 Mg Tabcr PO 40 mg DAILY ALFREDITO Administration Ranolazine 500 mg 06/14/22 20:00 06/16/22 20:43 Ranolazine 500 Mg Tabcr PO 500 mg BID ALFREDITO Administration Sodium Chloride 0 ml 06/14/22 16:41 06/16/22 15:15 Normal Saline Flush 10 Ml Syr IVP 20 ml PRN PRN Administration Tiotropium [place]/Olodaterol 2 puff 06/16/22 08:30 06/16/22 08:34 Tiotropium/Olodaterol 10 Puff Inhaler IH 2 inh DAILY ALFREDITO Administration Allergies hydromorphone [From Dilaudid] Allergy (Verified 06/14/22 10:37) Labs 06/17/22 06:08 06/16/22 06:23 Labs: 06/14/22 17:05 Blood Blood Culture - Preliminary NO GROWTH 48 HOURS 06/14/22 17:20 Blood Blood Culture - Preliminary Staphylococcus Species 06/15/22 19:20 Nose MRSA Screen - Pending Laboratory Tests Range/Units 06/14/22 06/14/22 06/14/22 10:55 10:55 10:55 WBC (4.4-10.8) 10^3/uL 9.42 RBC (4.36-5.78) 10^6/uL 4.40 Hgb (13.5-17.5) g/dL 12.9 L Hct (40.0-50.0) % 41.7 MCV (80-95) fL 95 MCH (27.0-33.0) pg 29.3 MCHC (32.0-36.0) % 30.9 L RDW (11.8-14.1) % 13.5 Plt Count (130-400) 10^3/uL 302 MPV (8.0-11.0) fL 8.8 Immature Gran % 0.3 Neutrophils % 62.7 Lymphocytes % 17.7 Monocytes % 8.0 Eosinophils % 10.6 Basophils % 0.7 Nucleated RBC % (0.0-0.3) % 0.0 Absolute Neutrophils (1.2-6.7) 10^3/uL 5.90 Absolute Lymphocytes (1.2-3.4) 10^3/uL 1.67 Absolute Monocytes (0.1-0.8) 10^3/uL 0.75 Absolute Eosinophils (0.0-0.7) 10^3/uL 1.00 H Absolute Basophils (0.0-0.2) 10^3/uL 0.07 PT (9.3-11.0) sec 11.0 INR (0.9-1.1) 1.1 APTT (21.5-31.9) sec 25.2 D-Dimer (<500) ng/mlFEU 1896 H Sodium (136-145) mmol/L 139 Potassium (3.5-5.1) mmol/L 4.1 Chloride (98-107) mmol/L 101 Carbon Dioxide (21.0-32.0) mmol/L 37.3 H Anion Gap (3-11) mmol/L 0.7 L BUN (7-18) mg/dL 11 Creatinine (0.70-1.30) mg/dL 0.9 Est GFR (CKD-EPI 2021) (mL/min/1.73m2) 102.12 Glucose (74-106) mg/dL 120 H Calcium (8.5-10.1) mg/dL 9.0 Magnesium (1.8-2.4) mg/dL 2.0 Total Bilirubin (0.2-1.0) mg/dL 0.6 AST (15-37) U/L 32 ALT (16-63) U/L 31 Alkaline Phosphatase (46-116) U/L 91 Troponin I (<or=60) ng/L < 50 C-Reactive Protein (0.0-0.3) mg/dL NT-Pro-B Natriuret Pep (<300) pg/mL 459 H Total Protein (6.4-8.2) g/dL 7.6 Albumin (3.4-5.0) g/dL 3.0 L Procalcitonin ng/mL Rheumatoid Factor (<12.0) IU/mL Cyclic Citrull Peptide (<5.0) U/mL ANTONIO Titer ANTONIO Titer 2 ANTONIO Titer 3 ANTONIO Interpretation (Negative) Blastomyces Ag Result Blastomyces Ag Comment COVID-19 Source SARS-CoV-2 (PCR) (Negative) Range/Units 06/14/22 06/14/22 06/14/22 12:35 13:47 13:47 WBC (4.4-10.8) 10^3/uL RBC (4.36-5.78) 10^6/uL Hgb (13.5-17.5) g/dL Hct (40.0-50.0) % MCV (80-95) fL MCH (27.0-33.0) pg MCHC (32.0-36.0) % RDW (11.8-14.1) % Plt Count (130-400) 10^3/uL MPV (8.0-11.0) fL Immature Gran % Neutrophils % Lymphocytes % Monocytes % Eosinophils % Basophils % Nucleated RBC % (0.0-0.3) % Absolute Neutrophils (1.2-6.7) 10^3/uL Absolute Lymphocytes (1.2-3.4) 10^3/uL Absolute Monocytes (0.1-0.8) 10^3/uL Absolute Eosinophils (0.0-0.7) 10^3/uL Absolute Basophils (0.0-0.2) 10^3/uL PT (9.3-11.0) sec INR (0.9-1.1) APTT (21.5-31.9) sec D-Dimer (<500) ng/mlFEU Sodium (136-145) mmol/L Potassium (3.5-5.1) mmol/L Chloride (98-107) mmol/L Carbon Dioxide (21.0-32.0) mmol/L Anion Gap (3-11) mmol/L BUN (7-18) mg/dL Creatinine (0.70-1.30) mg/dL Est GFR (CKD-EPI 2020) (mL/min/1.73m2) Glucose (74-106) mg/dL Calcium (8.5-10.1) mg/dL Magnesium (1.8-2.4) mg/dL Total Bilirubin (0.2-1.0) mg/dL AST (15-37) U/L ALT (16-63) U/L Alkaline Phosphatase (46-116) U/L Troponin I (<or=60) ng/L < 50 C-Reactive Protein (0.0-0.3) mg/dL 2.08 H NT-Pro-B Natriuret Pep (<300) pg/mL Total Protein (6.4-8.2) g/dL Albumin (3.4-5.0) g/dL Procalcitonin ng/mL Rheumatoid Factor (<12.0) IU/mL Cyclic Citrull Peptide (<5.0) U/mL ANTONIO Titer ANTONIO Titer 2 ANTONIO Titer 3 ANTONIO Interpretation (Negative) Blastomyces Ag Result Blastomyces Ag Comment COVID-19 Source Nasal/Nares SARS-CoV-2 (PCR) (Negative) Negative Range/Units 06/14/22 06/15/22 06/15/22 16:40 05:25 05:25 WBC (4.4-10.8) 10^3/uL 9.26 RBC (4.36-5.78) 10^6/uL 4.42 Hgb (13.5-17.5) g/dL 12.9 L Hct (40.0-50.0) % 41.6 MCV (80-95) fL 94 MCH (27.0-33.0) pg 29.2 MCHC (32.0-36.0) % 31.0 L RDW (11.8-14.1) % 13.7 Plt Count (130-400) 10^3/uL 285 MPV (8.0-11.0) fL 8.5 Immature Gran % 0.4 Neutrophils % 56.2 Lymphocytes % 25.8 Monocytes % 7.7 Eosinophils % 9.3 Basophils % 0.6 Nucleated RBC % (0.0-0.3) % 0.0 Absolute Neutrophils (1.2-6.7) 10^3/uL 5.20 Absolute Lymphocytes (1.2-3.4) 10^3/uL 2.39 Absolute Monocytes (0.1-0.8) 10^3/uL 0.71 Absolute Eosinophils (0.0-0.7) 10^3/uL 0.86 H Absolute Basophils (0.0-0.2) 10^3/uL 0.06 PT (9.3-11.0) sec INR (0.9-1.1) APTT (21.5-31.9) sec D-Dimer (<500) ng/mlFEU Sodium (136-145) mmol/L 137 Potassium (3.5-5.1) mmol/L 4.0 Chloride (98-107) mmol/L 96 L Carbon Dioxide (21.0-32.0) mmol/L 38.3 H Anion Gap (3-11) mmol/L 2.7 L BUN (7-18) mg/dL 12 Creatinine (0.70-1.30) mg/dL 0.9 Est GFR (CKD-EPI 2020) (mL/min/1.73m2) 102.12 Glucose (74-106) mg/dL 98 Calcium (8.5-10.1) mg/dL 8.9 Magnesium (1.8-2.4) mg/dL 1.9 Total Bilirubin (0.2-1.0) mg/dL AST (15-37) U/L ALT (16-63) U/L Alkaline Phosphatase (46-116) U/L Troponin I (<or=60) ng/L C-Reactive Protein (0.0-0.3) mg/dL 2.00 H NT-Pro-B Natriuret Pep (<300) pg/mL Total Protein (6.4-8.2) g/dL Albumin (3.4-5.0) g/dL Procalcitonin ng/mL < 0.1 Rheumatoid Factor (<12.0) IU/mL Cyclic Citrull Peptide (<5.0) U/mL ANTONIO Titer ANTONIO Titer 2 ANTONIO Titer 3 ANTONIO Interpretation (Negative) Blastomyces Ag Result Blastomyces Ag Comment COVID-19 Source SARS-CoV-2 (PCR) (Negative) Range/Units 06/15/22 06/15/22 06/16/22 13:58 13:58 06:23 WBC (4.4-10.8) 10^3/uL RBC (4.36-5.78) 10^6/uL Hgb (13.5-17.5) g/dL Hct (40.0-50.0) % MCV (80-95) fL MCH (27.0-33.0) pg MCHC (32.0-36.0) % RDW (11.8-14.1) % Plt Count (130-400) 10^3/uL MPV (8.0-11.0) fL Immature Gran % Neutrophils % Lymphocytes % Monocytes % Eosinophils % Basophils % Nucleated RBC % (0.0-0.3) % Absolute Neutrophils (1.2-6.7) 10^3/uL Absolute Lymphocytes (1.2-3.4) 10^3/uL Absolute Monocytes (0.1-0.8) 10^3/uL Absolute Eosinophils (0.0-0.7) 10^3/uL Absolute Basophils (0.0-0.2) 10^3/uL PT (9.3-11.0) sec INR (0.9-1.1) APTT (21.5-31.9) sec D-Dimer (<500) ng/mlFEU Sodium (136-145) mmol/L 139 Potassium (3.5-5.1) mmol/L 3.7 Chloride (98-107) mmol/L 97 L Carbon Dioxide (21.0-32.0) mmol/L 37.8 H Anion Gap (3-11) mmol/L 4.2 BUN (7-18) mg/dL 11 Creatinine (0.70-1.30) mg/dL 1.0 Est GFR (CKD-EPI 2020) (mL/min/1.73m2) 90.00 Glucose (74-106) mg/dL 99 Calcium (8.5-10.1) mg/dL 9.3 Magnesium (1.8-2.4) mg/dL 2.1 Total Bilirubin (0.2-1.0) mg/dL AST (15-37) U/L ALT (16-63) U/L Alkaline Phosphatase (46-116) U/L Troponin I (<or=60) ng/L C-Reactive Protein (0.0-0.3) mg/dL NT-Pro-B Natriuret Pep (<300) pg/mL Total Protein (6.4-8.2) g/dL Albumin (3.4-5.0) g/dL Procalcitonin ng/mL Rheumatoid Factor (<12.0) IU/mL 9.2 Cyclic Citrull Peptide (<5.0) U/mL <2.5 ANTONIO Titer 1:320 Speckled ANTONIO Titer 2 Not Applicable ANTONIO Titer 3 Not Applicable ANTONIO Interpretation (Negative) Positive A Blastomyces Ag Result Cancelled Blastomyces Ag Comment Cancelled COVID-19 Source SARS-CoV-2 (PCR) (Negative) Range/Units 06/16/22 06/17/22 06:23 06:08 WBC (4.4-10.8) 10^3/uL 8.70 8.62 RBC (4.36-5.78) 10^6/uL 4.36 4.21 L Hgb (13.5-17.5) g/dL 12.9 L 12.5 L Hct (40.0-50.0) % 41.7 40.1 MCV (80-95) fL 96 H 95 MCH (27.0-33.0) pg 29.6 29.7 MCHC (32.0-36.0) % 30.9 L 31.2 L RDW (11.8-14.1) % 13.8 13.9 Plt Count (130-400) 10^3/uL 320 293 MPV (8.0-11.0) fL 9.0 9.1 Immature Gran % 0.3 0.3 Neutrophils % 61.3 57.6 Lymphocytes % 18.6 20.6 Monocytes % 8.5 9.7 Eosinophils % 10.6 11.0 Basophils % 0.7 0.8 Nucleated RBC % (0.0-0.3) % 0.0 0.0 Absolute Neutrophils (1.2-6.7) 10^3/uL 5.33 4.95 Absolute Lymphocytes (1.2-3.4) 10^3/uL 1.62 1.78 Absolute Monocytes (0.1-0.8) 10^3/uL 0.74 0.84 H Absolute Eosinophils (0.0-0.7) 10^3/uL 0.92 H 0.95 H Absolute Basophils (0.0-0.2) 10^3/uL 0.06 0.07 PT (9.3-11.0) sec INR (0.9-1.1) APTT (21.5-31.9) sec D-Dimer (<500) ng/mlFEU Sodium (136-145) mmol/L Potassium (3.5-5.1) mmol/L Chloride (98-107) mmol/L Carbon Dioxide (21.0-32.0) mmol/L Anion Gap (3-11) mmol/L BUN (7-18) mg/dL Creatinine (0.70-1.30) mg/dL Est GFR (CKD-EPI 2020) (mL/min/1.73m2) Glucose (74-106) mg/dL Calcium (8.5-10.1) mg/dL Magnesium (1.8-2.4) mg/dL Total Bilirubin (0.2-1.0) mg/dL AST (15-37) U/L ALT (16-63) U/L Alkaline Phosphatase (46-116) U/L Troponin I (<or=60) ng/L C-Reactive Protein (0.0-0.3) mg/dL NT-Pro-B Natriuret Pep (<300) pg/mL Total Protein (6.4-8.2) g/dL Albumin (3.4-5.0) g/dL Procalcitonin ng/mL Rheumatoid Factor (<12.0) IU/mL Cyclic Citrull Peptide (<5.0) U/mL ANTONIO Titer ANTONIO Titer 2 ANTONIO Titer 3 ANTONIO Interpretation (Negative) Blastomyces Ag Result Blastomyces Ag Comment COVID-19 Source SARS-CoV-2 (PCR) (Negative)
[2022-06-17 07:23] LABS: Anion Gap 6.1 mmol/L (3-11); BUN 15 mg/dL (7-18); CO2 33.9 mmol/L (21.0-32.0); Chloride 97 mmol/L (98-107); Glucose 134 mg/dL (74-106); Magnesium 2.2 mg/dL (1.8-2.4); Potassium 3.8 mmol/L (3.5-5.1); Sodium 137 mmol/L (136-145)
[2022-06-17 07:35] VITALS: BP 109/70; PULSE 65; RESP 14; TEMP 36.5; O2SAT 94
[2022-06-17] MEDS: hydrALAZINE 25 MG TAB 50 MG PO ×2 (09:34→13:28)
[2022-06-17] MEDS: Metoprolol CR 25 MG TABCR PO (09:34)
[2022-06-17] MEDS: Losartan 25 MG TAB PO (09:34)
[2022-06-17] MEDS: Folic Acid 1 MG TAB 2 MG PO (09:34)
[2022-06-17] MEDS: Bumetanide 1 MG TAB 2 MG PO (09:34)
[2022-06-17] MEDS: Citalopram 20 MG TAB PO (09:34)
[2022-06-17] MEDS: Aspirin E.C. 81 MG TABEC PO (09:35)
[2022-06-17] MEDS: Multivitamin w/Minerals TAB 1 TAB PO (09:35)
[2022-06-17] MEDS: Isosorbide Mononitrate 30 MG TABCR PO (09:35)
[2022-06-17] MEDS: Clopidogrel 75 MG TAB PO (09:35)
[2022-06-17] MEDS: Gabapentin 300 MG CAP PO ×2 (09:35→13:28)
[2022-06-17] MEDS: LORazepam 0.5 MG TAB PO (09:35)
[2022-06-17] MEDS: busPIRone 15 MG TAB PO (09:35)
[2022-06-17] MEDS: Pantoprazole 40 MG TABCR PO (09:35)
[2022-06-17] MEDS: Ranolazine 500 MG TABCR PO (09:35)
[2022-06-17] MEDS: Amiodarone 200 MG TAB PO (09:35)
[2022-06-17] MEDS: Buprenorphine/Naloxone 8 mg/2 mg FILM 1 EACH SL (09:36)
[2022-06-17] MEDS: Buprenorphine/Naloxone 2 mg/0.5 mg FILM 1 EACH SL (09:36)
[2022-06-17] MEDS: MORPHine 4 MG/ML SYR IVP (09:38)
[2022-06-17] MEDS: Tiotropium/Olodaterol 10 PUFF INHALER 2 PUFF IH (11:54)
[2022-06-17 11:56] VITALS: BP 113/77; PULSE 64; RESP 16; TEMP 35.5; O2SAT 94
[2022-06-17 12:03] VITALS: PULSE 103; PULSE 65; PULSE 85; RESP 12; RESP 16; O2SAT 92; O2SAT 95
--- NOTE | 2022-06-17 13:40 | DSE_ITS ---
Date of service: 06/17/22 Time of Service: 13:40 DS: Diagnosis Discharge Diagnosis (1) COPD (chronic obstructive pulmonary disease): Status: Chronic Asessment and Plan: Continue home COPD medications; start Stiolto per recommendation of Dr Hoffman, continue albuterol prn (2) Tobacco use disorder: Status: Acute (3) Consolidation of left lower lobe of lung: Status: Acute Asessment and Plan: Start levofloxacin 750 mg daily for 5 days; follow up with Dr Hoffman Discharge Plan Disposition Patient Disposition: Home Condition: Improving Discharge Details Reason For Visit: CHF, Hypoxia, Cellulitis LLE, ?PNA Admit Date/Time: 06/14/22 16:41 Admit Provider: Tanja Gaines Attending Provider: Tanja Gaines Primary Care Provider: GERRI SILVERMAN Hospital Course Hospital Course: This is a 51 year old male patient with past medical history of COPD, ETOH abuse, morbid obesity, CHF, defibrillator placement, coronary stent placements and hyperlipidemia who presented to the [facility] emergency department on 06/14/2022 with the chief complaint of shortness of breath and left lower leg swelling for 4 days. ?Patient reported no chest pain, no dizziness, no fever. Patient had a recent admission to [facility] for CHF. Vital signs in the ED, patient was slightly hypoxic - 89% on room air.? Not tachycardic, slightly hypotensive with blood pressure of 100/79, not tachypneic and not febrile.? Patient did not know his medications he takes, he does know he takes Plavix but unsure of all other medications.?EKG in the ED read as sinus rhythm, no findings to suggest STEMI.? There is Q waves present in lead III but overall EKG is unchanged from previous EKGs. Review of labs showed slightly low hemoglobin of 12.9, platelets within normal range with count of 302, PT/INR and APTT is within normal limits, D-dimer is elevated at 1896.? CMP showed elevated carbon dioxide 37.3, anion gap of 0.7, glucose of 120 otherwise unremarkable.? Initial troponin was negative, BNP slightly elevated at 459 but significantly lower than previous admission.? Echo from 05/21/2022 showed EF of 60%. CTA chest negative for acute PE, does show patchy airspace densities in the left lower lobe having infectious or inflammatory appearance recommend follow-up given nodular appearance, small left pleural effusion, and mild left hilar lymphadenopathy with them stating this is reactive.? Clinical concern for DVT with no availability for ultrasound imaging of the leg today.? Patient was started on Lovenox.? Patient was admitted to the medical surgical floor for shortness of breath requiring oxygen at rest. Patient improved and no longer required oxygen. He was able to walk around the unit without needing oxygen, oxygen saturation did not go below 94% with exertion. He was seen by pulmonology.? The cellulitis on his upper left thigh has improved significantly, and pain is mostly alleviated.? He is anxious to go home.? His blood cultures, 1 pedi bottle is positive for staph epi, probable contaminant.? We will have PCP follow up on repeat BC.? He will take Levofloxacin for 5 days and follow up in 2 months with pulmonary and have a repeat chest CT.? He is discharged home, stable, improved.? He is in agreement with this plan. Discussed with Dr Coombs [place] Meds and New Rx's Prescriptions: New Stiolto Respimat 2.5-2.5 mcg/actuation mist 2 puff inhalation DAILY Qty: 4 0RF albuterol sulfate 90 mcg/actuation aerosol powdr breath activated 2 inh inhalation Q4H PRNQty: 1 0RF levofloxacin 750 mg tablet 750 mg PO DAILY Qty: 10 0RF No Action buspirone 15 mg tablet 15 mg PO BID nitroglycerin 0.4 mg tablet, sublingual 0.4 mg sublingual Q5-15M PRN Rx Instructions: do not exceed 3 doses per episode lorazepam 0.5 mg tablet 0.5 mg PO BID PRN metoprolol succinate 25 mg tablet extended release 24 hr 25 mg PO DAILY buprenorphine-naloxone [Suboxone] 8-2 mg Film 1 film sublingual DAILY Rx Instructions: In addition to 2mg-0.5mg film (total daily dose: 10-2.5mg SL daily) citalopram 20 mg Tablet 20 mg PO DAILY bumetanide 1 mg Tablet 1 mg PO BID Rx Instructions: @ 12 trazodone 50 mg tablet 50 mg PO HS gabapentin 300 mg Capsule 300 mg PO TID isosorbide mononitrate 30 mg Tablet Extended Release 24 Hr 30 mg PO DAILY aspirin 81 mg Tablet,Delayed Release (Dr/Ec) 81 mg PO DAILY ranolazine 500 mg Tablet Extended Release 12 Hr 500 mg PO BID atorvastatin 80 mg tablet 80 mg PO DAILY Qty: 30 0RF clopidogrel [Plavix] 75 mg tablet 75 mg PO DAILY Qty: 30 0RF folic acid 1 mg tablet 2 mg PO DAILY Qty: 30 0RF hydralazine 50 mg tablet 50 mg PO TID Qty: 90 0RF losartan 25 mg tablet 25 mg PO DAILY Qty: 30 0RF pantoprazole [Protonix] 40 mg tablet,delayed release (DR/EC) 40 mg PO DAILY Qty: 30 0RF amiodarone 200 mg Tablet 200 mg PO DAILY buprenorphine-naloxone 2-0.5 mg Film 1 film sublingual DAILY Rx Instructions: In addition to 8-2mg film (total daily dose: 10-2.5mg SL daily) Discharge Instructions Instructions: Cellulitis (DC) Additional Instructions: Start Stiolto,use inhaler. Take Levoquin once a day for 5 days. Stand Alone Forms: Nursing Discharge Form Referrals: GERRI SILVERMAN [Primary Care Provider] - (A Nurse from your PCP will give you a call with an Appointment Gerri Silverman should review blood culture that is pending to assure it is negative; continue Levofloxacin until it is finished. ) May Hoffman MD [ [facility] STAFF PHYSICIAN] - 08/19/22 10:00 am () Activity:: Activity as Tolerated Equipment/Supplies:: No Equipment Needed Diet:: As Tolerated Discharge Orders Discharge Orders: Discharge Order (Routine); Ordered 06/17/22 Ordered By: Mallory Booth Discharge Data Discharge Date/Time-TO BE ENTERED AT DEPARTURE: 06/17/22 15:01 DS: Summary Time Spent with Patient providing and/or coordinating discharge services: Greater than 30 minutes Status at Discharge Functional status at discharge: independent ambulation Overall status at discharge: patient is progressing back to baseline Mental Status: mental status grossly normal Speech and Movement: speech and movement normal Mood: congruent mood Affect: normal affect Exam Narrative Exam Narrative: Awake, alert, conversant, pleasant sitting in the chair, reclined. Const General: cooperative and no acute distress Orientation: alert, awake and oriented x3 HENMT Head: normal to inspection Ears: hearing grossly normal bilaterally and external ears normal General nose exam: external nose normal Face and sinus: normal facial exam Mouth: oral mucosae normal Eyes General: appearance normal, both eyes and all related structures Eyelids: eyelids normal EOM: EOM intact bilaterally Neck Neck: normal visual inspection Lymphatic: no lymphadenopathy noted Chest Chest: normal inspection of the chest Resp Effort & Inspection: normal respiratory effort and able to speak in complete sentences Auscultation: crackles bilaterally in the lower lung [place] and diminished lung sounds bilaterally throughout Cardio Rate: regular rate Rhythm: regular rhythm GI Inspection: normal to inspection Palpation: soft, not firm, no guarding and nontender Auscultation: normal bowel sounds Neuro General: patient alert and patient awake Cognition: normal cognition Speech: speech normal Sensory Exam: no sensory deficits noted Extrem General: full ROM Other: significant bilateral lower extremity edema with left greater than right along with left mid thigh being acutely tender erythematous and significant edema noted to the thigh that is not present on right leg.? Otherwise there is bilateral pitting edema from the knees down.? Psych Appearance: grossly normal Mental Status: mental status grossly normal Speech and Movement: speech and movement normal Mood: congruent mood Affect: normal affect Thought Process: normal DS: Data Vitals/I&O Vitals and I&O: Vital Signs Temperature 35.5 C L 06/17/22 11:56 Temperature Source Tympanic 06/17/22 11:56 Pulse 64 06/17/22 11:56 Pulse Rhythm Regular 06/17/22 06:05 Pulse 69 06/15/22 09:34 Respiratory Rate 16 06/17/22 11:56 Respiratory Effort Normal 06/17/22 11:16 Respiratory Depth Normal 06/17/22 11:16 Respiratory Pattern Tachypnea 06/15/22 17:17 Blood Pressure 113/77 06/17/22 11:56 Blood Pressure Mean 73 06/15/22 09:16 Blood Pressure Position Sitting 06/14/22 10:23 Pulse Oximetry 94 06/17/22 11:56 Oxygen Delivery Method Room Air 06/17/22 11:56 Oxygen Flow Rate 0 06/17/22 11:56 Pain Level 1 06/17/22 11:56 Comment patient O2 was increased to 2L as he sated to desat while sleeping (90%) 06/17/22 00:45 Intake & Output 06/16/22 06/17/22 06/17/22 23:59 11:59 23:59 Intake Total 400 / 1280 350 / 350 Output Total 525 / 2000 350 / 350 Balance -125 / -720 0 / 0 Intake: IV 400 / 800 350 / 350 Output: Urine / 1999 350 / 350 Other: Urine Color Yellow Yellow Urine Appearance Clear Clear Voiding Methods Urinal Urinal Data Completed and Pending Labs on day of discharge: Labs from last 24 hours 06/17/22 06/17/22 06/17/22 09:27 09:27 09:00 WBC RBC Hgb Hct MCV MCH MCHC RDW Plt Count MPV Immature Gran % Neutrophils % Lymphocytes % Monocytes % Eosinophils % Basophils % Nucleated RBC % Absolute Neutrophils Absolute Lymphocytes Absolute Monocytes Absolute Eosinophils Absolute Basophils Sodium Potassium Chloride Carbon Dioxide Anion Gap BUN Creatinine Est GFR (CKD-EPI 2020) Glucose Calcium Magnesium Vancomycin Trough Cancelled ANTONIO Titer ANTONIO Titer 2 ANTONIO Titer 3 ANTONIO Interpretation Proteinase 3 (PR3) Myeloperoxidase Ab FLOWER-1 Antibody Pending EJ Antibody Pending Ku Antibody Pending OJ Antibody Pending Mi-2 Antibody Pending NXP-[address]-12 Antibody Pending [id number] Pending Myositis TIF1-gamma Ab Pending SS-A Antibody Pending SS-A/Ro 52 kDa Ab Pending SS-B Antibody Pending Sm (Yusuf) Antibody Pending Scl-70 IgG Ab Pending A-PM Scleroderma 100 Ab Pending Anti-U1-MUSIC THEORY PROFESSOR IgG, Quant Pending U2-snRNP Antibody Pending U3-MUSIC THEORY PROFESSOR (Fibrillarin) Ab Pending Anti-SRP Antibody Pending Urine Legionella Ag B-(1,3)-D-Glucan Quant B-(1,3)-D-Glucan Qual 06/17/22 06/17/22 06/15/22 06:08 06:08 16:18 WBC 8.62 RBC 4.21 L Hgb 12.5 L Hct 40.1 MCV 95 MCH 29.7 MCHC 31.2 L RDW 13.9 Plt Count 293 MPV 9.1 Immature Gran % 0.3 Neutrophils % 57.6 Lymphocytes % 20.6 Monocytes % 9.7 Eosinophils % 11.0 Basophils % 0.8 Nucleated RBC % 0.0 Absolute Neutrophils 4.95 Absolute Lymphocytes 1.78 Absolute Monocytes 0.84 H Absolute Eosinophils 0.95 H Absolute Basophils 0.07 Sodium 137 Potassium 3.8 Chloride 97 L Carbon Dioxide 33.9 H Anion Gap 6.1 BUN 15 Creatinine 1.0 Est GFR (CKD-EPI 2020) 90.00 Glucose 134 H Calcium 9.0 Magnesium 2.2 Vancomycin Trough ANTONIO Titer ANTONIO Titer 2 ANTONIO Titer 3 ANTONIO Interpretation Proteinase 3 (PR3) Myeloperoxidase Ab FLOWER-1 Antibody EJ Antibody Ku Antibody OJ Antibody Mi-2 Antibody NXP-[address]12 Antibody [id number] Myositis TIF1-gamma Ab SS-A Antibody SS-A/Ro 52 kDa Ab SS-B Antibody Sm (Yusuf) Antibody Scl-70 IgG Ab A-PM Scleroderma 100 Ab Anti-U1-MUSIC THEORY PROFESSOR IgG, Quant U2-snRNP Antibody U3-MUSIC THEORY PROFESSOR (Fibrillarin) Ab Anti-SRP Antibody Urine Legionella Ag Negative B-(1,3)-D-Glucan Quant B-(1,3)-D-Glucan Qual 06/15/22 06/15/22 06/15/22 13:58 13:58 13:58 WBC RBC Hgb Hct MCV MCH MCHC RDW Plt Count MPV Immature Gran % Neutrophils % Lymphocytes % Monocytes % Eosinophils % Basophils % Nucleated RBC % Absolute Neutrophils Absolute Lymphocytes Absolute Monocytes Absolute Eosinophils Absolute Basophils Sodium Potassium Chloride Carbon Dioxide Anion Gap BUN Creatinine Est GFR (CKD-EPI 2020) Glucose Calcium Magnesium Vancomycin Trough ANTONIO Titer 1:320 Speckled ANTONIO Titer 2 Not Applicable ANTONIO Titer 3 Not Applicable ANTONIO Interpretation Positive A Proteinase 3 (PR3) <0.2 Myeloperoxidase Ab <0.2 FLOWER-1 Antibody EJ Antibody Ku Antibody OJ Antibody Mi-2 Antibody NXP-[address]-12 Antibody [id number] Myositis TIF1-gamma Ab SS-A Antibody SS-A/Ro 52 kDa Ab SS-B Antibody Sm (Yusuf) Antibody Scl-70 IgG Ab A-PM Scleroderma 100 Ab Anti-U1-MUSIC THEORY PROFESSOR IgG, Quant U2-snRNP Antibody U3-MUSIC THEORY PROFESSOR (Fibrillarin) Ab Anti-SRP Antibody Urine Legionella Ag B-(1,3)-D-Glucan Quant <31 B-(1,3)-D-Glucan Qual Negative 06/17/22 09:44 Blood Blood Culture - Pending 06/17/22 09:27 Blood Blood Culture - Pending Preliminary micro results at discharge 06/17/22 09:44 Blood Culture - Pending Blood 06/17/22 09:27 Blood Culture - Pending Blood 06/14/22 17:05 Blood Culture - Preliminary Blood NO GROWTH 48 HOURS PFSH All Active Problems (Updated 06/15/22 @ 12:53 by May Hoffman MD) Consolidation of left lower lobe of lung (Acute) Anxiety (Acute) Cellulitis of leg, left (Acute) DVT prophylaxis (Acute) Discharge planning issues (Acute) Angina pectoris (Chronic) GERD (gastroesophageal reflux disease) (Chronic) Depression (Chronic) Morbid obesity (Chronic) AICD (automatic cardioverter/defibrillator) present (Acute) placed at [facility] for ischemic dilated cardiomyopathy [employer] Margaert MACDONALD 01/27/21 RH HLD (hyperlipidemia) (Acute) ETOH abuse (Chronic) Drug dependence (Acute) COPD (chronic obstructive pulmonary disease) (Chronic) Acute on chronic heart failure with reduced ejection fraction and diastolic dysfunction (Acute) Ischemic cardiomyopathy (Chronic) Afib (Chronic) Tobacco use disorder (Acute) Hx of hyperlipidemia (Acute) HTN (hypertension) (Chronic) CAD (coronary artery disease) (Chronic) Medical History (Updated 06/15/22 @ 12:53 by May Hoffman MD) Alcohol use disorder, severe, dependence [facility] 01/21 Cardiac arrest CHF (congestive heart failure) Dental infection Exertional chest pain Homelessness Medication monitoring encounter Pacemaker Pulmonary nodules Surgical History (Updated 06/14/22 @ 17:47 by Mallory Booth NP) History of coronary artery stent placement History of hernia repair History of right knee joint replacement History of tonsillectomy Social History Smoking/Tobacco Use Status: Current-Occasional Tobacco Type: cigarettes Smoking risk assessment performed?: Yes Alcohol Intake: former Year quit: 2020 Details: Former heavy alcohol use. Drug use: Current Sobriety Substance use type: former substance user, marijuana and prescription drug Do you feel safe at home: Yes Do you feel safe in your relationship?: Yes Time Spent with Patient Time Spent with Patient: <45 minutes Time was spent: preparing to see the patient(eg.review tests), obtaining and/or reviewing separately otained hiistory, ordering medications,tests, procedures, referring, communicating with other health foster care worker, indepentently interpreting results, counseling the patient and care coordination
--- NOTE | 2022-06-17 13:51 | CHAPLAIN ---
Pramod was dressed and ready to be discharged. He was waiting for the discharge paperwork when I stopped. We remembered meeting during his last admission. Pramod said he is anxious waiting and is hoping to get his paperwork soon. The hospitalist told him at 11 am he'd be discharged, Pramod said, and it was after 1:30 pm when I saw him. He has friends waiting in the parking lot to give him a ride home. He was going to suggest they go to the cafeteria to wait.
--- NOTE | 2022-06-17 14:25 | PDOC.CMDIS ---
- If Service Date Differs Date of service: 06/17/22 Time of Service: 14:25 LACE Index Scoring Tool - Questions: Length of Stay (in days): 3 Acuity (Admit via E.D.?): Yes Comorbidities: Congestive Heart Failure E.D. Visits: 7 - Answers: Total Score: 12 Risk of Readmission: High Risk Care Management Discharge Reason for Hospitalization: CHF, Hypoxia, Cellulites, PNA Discharge Plan: Pramod is discharged home via private vehicle. He will follow up with community providers and discharge plan of care as prescribed. New RX's are transmitted to [facility]. No new services are ordered. Patient/Family Education Needs: Review discharge instructions, limitations, medications and plan to follow up with community providers. Discuss ask me three.
[2022-06-17 16:37] LABS: Streptococcus Pneumoniae Ag, U Negative (Negative)
[2022-06-18 16:10] LABS: Blastomyces Ag Result Not Detected; Blastomyces Ag Value Not Detected
[2022-06-18 17:12] LABS: Scl 70 Antibodies, IgG <0.2 U
[2022-06-19 15:19] LABS: SS-A Antibody 5.9 Units (<20.0)
[2022-06-19 15:23] LABS: SS-B (La) Ab, IgG 14.5 Units (<20.0)
[2022-06-19 15:33] LABS: Sm (Smith) Ab, IgG 6.9 Units (<20.0)
[2022-07-03 04:10] LABS: Anti-EJ Ab Negative (Negative); Anti-Jo-1 Ab <20 Units (<20); Anti-Ku Ab Negative (Negative); Anti-MDA-5 Ab (CADM-140) <20 Units (<20); Anti-Mi-2-Ab Negative (Negative); Anti-NXP-2 (P140) Ab <20 Units (<20); Anti-OJ Ab Negative (Negative); Anti-PL-12 Ab Negative (Negative); Anti-PL-7 Ab Negative (Negative); Anti-PM/Scl-100 Ab <20 Units (<20); Anti-SRP Ab Negative (Negative); Anti-SS-A 52kD Ab, IgG <20 Units (<20); Anti-TIF-1gamma Ab <20 Units (<20); Anti-U1 RNP Ab 25 Units (<20); Anti-U2 RNP Ab Negative (Negative); Anti-U3 RNP (Fibrillarin) Negative (Negative)
== END 2022-06-17 15:01 | disposition home or self-care (01) | DRG 291 ==
LOC: ER 17:13 → MS 06-15 15:21
PROVIDERS: Nurse Practitioner Family; Student in an Organized Health Care Education/Training Program; Admitting Provider Internal Medicine; Emergency Provider Physician Assistant; PCP Nurse Practitioner Family; Visit Provider Internal Medicine
DX: I11.0 Hypertensive heart disease with heart failure (principal); I50.43 Acute on chronic combined systolic (congestive) and diastolic (congestive) heart failure; J18.9 Pneumonia, unspecified organism; L03.116 Cellulitis of left lower limb; F11.20 Opioid dependence, uncomplicated; Z68.43 Body mass index [BMI] 50.0-59.9, adult; J44.0 Chronic obstructive pulmonary disease with (acute) lower respiratory infection; F41.9 Anxiety disorder, unspecified; F17.210 Nicotine dependence, cigarettes, uncomplicated; E66.01 Morbid (severe) obesity due to excess calories; I25.118 Atherosclerotic heart disease of native coronary artery with other forms of angina pectoris; I25.5 Ischemic cardiomyopathy; K21.9 Gastro-esophageal reflux disease without esophagitis; E78.5 Hyperlipidemia, unspecified; F10.20 Alcohol dependence, uncomplicated; Z96.652 Presence of left artificial knee joint; F32.A Depression, unspecified; Z95.5 Presence of coronary angioplasty implant and graft; Z95.810 Presence of automatic (implantable) cardiac defibrillator; W19.XXXA Unspecified fall, initial encounter; R79.1 Abnormal coagulation profile; R59.0 Localized enlarged lymph nodes
CPT/HCPCS: 36410; 36415; 71275; 80048; 80053; 83516; 84145; 86200; 86235; 87040; 87077; 87081; 87449; 87635; 93005; 94618; 94640; 96365; 96366; 96367; 96375; 96376; 99285; 73701; 80202; 83735; 83880; 84484; 85025; 85379; 85610; 85730; 86038; 86140; 86431; 87186; 87385; 87581; 87899; 93010; 93970; 94664; 94667; 94668; 99223; 99232; 99239; J1650; J1941; J2270; J2543; J3490; J7620

== ENCOUNTER 2022-06-26 06:30 | Emergency (ER) | payer MEDICAID, SELFPAY ==
[2022-06-26] VITALS (26 sets, daily range): BP systolic 87–133; BP diastolic 43–84; PULSE 60–93; RESP 11–27; TEMP 36.1; O2SAT 87–97
--- NOTE | 2022-06-26 06:30 | RT.EKG_ITS ---
APPROVED REPORT Exam: Resting ECG Reason for Exam: SOB Patient Location: E HR:66 bpm ECG Measurements Heart Rate 66 AXIS WV 107 P 34 QRSd 106 QRS 35 QT 424 T 76 QTc 444 Conclusion Sinus rhythm...normal P axis, V-rate 60- 99 Probable anterolateral infarct, old...Q>35mS, abnrm ST-T, V2-V6,I,aVL Borderline ST depression, lateral leads...ST <-0.07mV, I aVL V5 V6. Sinus. Normal axis. No STEMI. I have reviewed and interpreted ECG and agree with software generated interpretation.
--- NOTE | 2022-06-26 07:30 | DI.US_ITS ---
Exam(s) US LOWER EXTREMITY VENOUS LT EXAM: US LOWER EXTREMITY VENOUS LT CLINICAL HISTORY: leg swelling, L thigh mass, r/o abscess/dvt. TECHNIQUE: Lower extremity venous ultrasound performed using grayscale, color-flow, and spectral Do ppler analysis. COMPARISON: No exams were available for comparison FINDINGS: The common femoral, femoral and popliteal veins demonstrate normal compressibility, augmentation, and color Doppler. The posterior tibial veins are patent. No saphenous vein thrombosis or other superfi cial venous thrombosis is seen. No hematoma or Brennan's cyst is seen. No evidence of mass. There is some soft tissue edema in the subcutaneous fat of the thigh. IMPRESSION: Soft tissue swelling left thigh. No evidence of DVT. DATA REPOSITORY:
--- NOTE | 2022-06-26 07:30 | DI.CT_ITS ---
Exam(s) CT CHEST PE CTA EXAM: CT CHEST PE CTA CLINICAL HISTORY: shortness of breath, r/o pe, pneumonia. TECHNIQUE: Imaging Protocol: Axial CT angiography was performed with multi-slice acquisition and mu lti-planar reconstructions as well as axial, coronal and sagittal MIP reconstructions. CONTRAST MATERIAL: Intravenous: Omnipaque 350 Contrast volume:100 ml COMPARISON: CT CT CHEST WO from 06/10/[address] CHEST PE CTA from 06/14/2022 FINDINGS: Exam mildly limited by respiratory motion. Lungs poorly evaluated due to expiratory scanning which i s part of the pulmonary embolism protocol. Stable appearance of left pleural effusion. Basilar atel ectasis left greater than right, mildly Increasing from prior exam. The previously noted rounded are a of consolidation is much less prominent on the current exam. The heart is enlarged. Pacemaker leads are again noted.. There is no evidence of pulmonary emboli. IMPRESSION: No evidence of pulmonary embolism. Stable size of right pleural effusion. Mildly increased basilar atelectasis. The previous infiltrat e medially has decreased in size on the current exam. RADIATION DOSE DELIVERED: 744.43mGy.cm Total DLP DATA REPOSITORY: All CT scans at this facility are submitted to the National Radiology Data Registry (NRDR) Dose Index Registry (DIR) with the [employer] ([employer]). RADIATION OPTIMIZATION: All CT scans at this facility use at least one of these dose optimization te chniques: automated exposure control; mA and/or kV adjustment per patient size (includes targeted exa ms where dose is matched to clinical indication); or iterative reconstruction.
--- NOTE | 2022-06-26 07:41 | ED.GENADUL_ITS ---
Discharge Plan Disposition Patient Disposition: Home Condition: Good Discharge Details Chief Complaint: SOB Clinical Impression: Cough Primary Care Provider: TIKI DOMINGUEZ ED Provider: Israel Rosa Home Meds and New Rx's Prescriptions: No Action buspirone 15 mg tablet 15 mg PO BID nitroglycerin 0.4 mg tablet, sublingual 0.4 mg sublingual Q5-15M PRN Rx Instructions: do not exceed 3 doses per episode lorazepam 0.5 mg tablet 0.5 mg PO BID PRN metoprolol succinate 25 mg tablet extended release 24 hr 25 mg PO DAILY buprenorphine-naloxone [Suboxone] 8-2 mg Film 1 film sublingual DAILY Rx Instructions: In addition to 2mg-0.5mg film (total daily dose: 10-2.5mg SL daily) citalopram 20 mg Tablet 20 mg PO DAILY bumetanide 1 mg Tablet 1 mg PO BID Rx Instructions: @ 08,12 trazodone 50 mg tablet 50 mg PO HS gabapentin 300 mg Capsule 300 mg PO TID Stiolto Respimat 2.5-2.5 mcg/actuation mist 2 puff inhalation DAILY Qty: 4 0RF albuterol sulfate 90 mcg/actuation aerosol powdr breath activated 2 inh inhalation Q4H PRNQty: 1 0RF levofloxacin 750 mg tablet 750 mg PO DAILY Qty: 10 0RF isosorbide mononitrate 30 mg Tablet Extended Release 24 Hr 30 mg PO DAILY aspirin 81 mg Tablet,Delayed Release (Dr/Ec) 81 mg PO DAILY ranolazine 500 mg Tablet Extended Release 12 Hr 500 mg PO BID atorvastatin 80 mg tablet 80 mg PO DAILY Qty: 30 0RF clopidogrel [Plavix] 75 mg tablet 75 mg PO DAILY Qty: 30 0RF folic acid 1 mg tablet 2 mg PO DAILY Qty: 30 0RF hydralazine 50 mg tablet 50 mg PO TID Qty: 90 0RF losartan 25 mg tablet 25 mg PO DAILY Qty: 30 0RF pantoprazole [Protonix] 40 mg tablet,delayed release (DR/EC) 40 mg PO DAILY Qty: 30 0RF amiodarone 200 mg Tablet 200 mg PO DAILY buprenorphine-naloxone 2-0.5 mg Film 1 film sublingual DAILY Rx Instructions: In addition to 8-2mg film (total daily dose: 10-2.5mg SL daily) Discharge Instructions Instructions: Chronic Cough (ED) Additional Instructions: At this time your CT scan shows no evidence of blood clots. Your pneumonia is improving on your CAT scan. Your blood work shows no evidence of sepsis. Your heart markers are normal, your COVID/flu/RSV is negative. Your ultrasound shows no clots, and there is no evidence of significant infection. Please finish your antibiotic dose. Please follow-up closely with your primary care provider and your banquet manager for reassessment. If you notice any worsening of your symptoms, or any new symptoms such as vomiting, diarrhea, fever, chills, shortness of breath, chest pain, numbness, weakness, or fainting , please return immediately to the emergency department for reevaluation. Please follow up with your primary care provider as soon as possible for reassessment and reevaluation. As always, it was a pleasure participating in your medical care today. Referrals: TIKI DOMINGUEZ [Primary Care Provider] - Medical Decision Making <Lisa Nieto DO - Last Filed: 06/26/22 08:05> 0715 -- 51-year-old male with a history of morbid obesity, hypertension, hyperlipidemia, GERD, coronary artery disease, cardiac arrest with history of ischemic cardiomyopathy and AICD, atrial fibrillation, GERD, depression, anxiety, formal alcohol and opiate use in remission on Suboxone presents with worsening shortness of breath with exertion and worsening left thigh pain and swelling. EKG notes a rate of 66, sinus, normal axis, no STEMI and nondiagnostic. Patient is morbidly obese. His oxygen saturation is 91% on room air but he appears in no acute respiratory distress. He is afebrile and appears nontoxic. He has diminished breath sounds throughout, mostly in lower lobes. He has +1 pitting edema and rubor discoloration to bilateral lower extremities likely consistent with venous stasis. He has a 4 x 4 centimeter area of induration to the left proximal medial thigh which he reports is worse than previous. There is no significant erythema or fluctuance. History and presentation does not appear consistent with ACS or dissection. Considered PE with report of worsening left leg swelling. Consider worsening pneumonia. Differential diagnosis also includes COPD, COVID, RSV. We will place an IV, small bolus IV fluids, screening labs, fluid, CT chest, left leg ultrasound and give a dose of IV Tylenol and DuoNeb. Patient also requests medication for anxiety as he reports he is significantly anxious when in the hospital due to his previous history. We will give a dose of Ativan IV. 0800 -- Case endorsed to Dr. Rosa to follow-up on labs and imaging and final disposition. Medical Records Medical records reviewed: Yes I reviewed the patient's medical records. ECG Data Attestation: I personally reviewed and interpreted this ECG (s) as follows: Interpretation: Rate of 66, sinus, normal axis, no STEMI. No significant ST depression noted. <Israel Rosa, DO - Last Filed: 06/26/22 09:44> 0715 -- 51-year-old male with a history of morbid obesity, hypertension, hyperlipidemia, GERD, coronary artery disease, cardiac arrest with history of ischemic cardiomyopathy and AICD, atrial fibrillation, GERD, depression, anxiety, formal alcohol and opiate use in remission on Suboxone presents with worsening shortness of breath with exertion and worsening left thigh pain and swelling. EKG notes a rate of 66, sinus, normal axis, no STEMI and nondiagnostic. Patient is morbidly obese. His oxygen saturation is 91% on room air but he appears in no acute respiratory distress. He is afebrile and appears nontoxic. He has diminished breath sounds throughout, mostly in lower lobes. He has +1 pitting edema and rubor discoloration to bilateral lower extremities likely consistent with venous stasis. He has a 4 x 4 centimeter area of induration to the left proximal medial thigh which he reports is worse than previous. There is no significant erythema or fluctuance. History and presentation does not appear consistent with ACS or dissection. Considered PE with report of worsening left leg swelling. Consider worsening pneumonia. Differential diagnosis also includes COPD, COVID, RSV. We will place an IV, small bolus IV fluids, screening labs, fluid, CT chest, left leg ultrasound and give a dose of IV Tylenol and DuoNeb. Patient also requests medication for anxiety as he reports he is significantly anxious when in the hospital due to his previous history. We will give a dose of Ativan IV. 0800 -- Case endorsed to Dr. Rosa to follow-up on labs and imaging and final disposition. 9:38 AM Patient was signed out to me by my colleague Dr. Lisa Nieto. Please refer to HPI, physical exam, assessment and plan. Laboratory work-up demonstrates stable white count, no bandemia or left shift whatsoever. There were few low blood pressures initially noted, but his blood pressure is now 120/80, he feels well and is afebrile. No clinical evidence of sepsis on exam whatsoever. Blood pressure cuff was not fitting well initially, and I do attribute this for a component of the atypical blood pressures. Patient is morbidly obese. CTA shows no evidence of blood clot, but does show improving pneumonia. Atelectasis is still present. Patient's oxygen remained stable. Patient's COVID flu and RSV is negative. Patient looks clinically well. The area on his thigh demonstrates no evidence of clots, no redness, no erythema. He does have a birthmark which is atypically but is the baseline. No evidence of infection. Patient is otherwise clinically stable for discharge. Recommend continued use of his Levaquin until the prescription is finished. Discussed red flags which to return. Symptoms at this time are inconsistent with ACS, PE, sepsis, or other life-threatening etiology currently based on clinical reassessment at time of discharge. I have extensively reviewed the treatment plan and discharge instructions with the patient. I have addressed all patient concerns at this time. The patient was made aware of what symptoms to monitor for that would warrant a return to the emergency department. Discussed the plan with the patient, they demonstrate verbal understanding and agreement with our assessment and plan at this time. The documentation in this chart was dictated using [employer] dictation software. Please excuse any dictation errors. FINDINGS: The common femoral, femoral and popliteal veins demonstrate normal compressibility, augmentation, and color Doppler. The posterior tibial veins are patent. No saphenous vein thrombosis or other superficial venous thrombosis is seen. No hematoma or Brennan's cyst is seen. No evidence of mass. There is some soft tissue edema in the subcutaneous fat of the thigh. IMPRESSION: Soft tissue swelling left thigh. No evidence of DVT. FINDINGS: Exam mildly limited by respiratory motion. Lungs poorly evaluated due to expiratory scanning which is part of the pulmonary embolism protocol. Stable appearance of left pleural effusion. Basilar atelectasis left greater than right, mildly Increasing from prior exam. The previously noted rounded area of consolidation is much less prominent on the current exam. The heart is enlarged. Pacemaker leads are again noted.. There is no evidence of pulmonary emboli. IMPRESSION: No evidence of pulmonary embolism. Stable size of right pleural effusion. Mildly increased basilar atelectasis. The previous infiltrate medially has decreased in size on the current exam. HPI <Lisa Nieto DO - Last Filed: 06/26/22 08:05> General Mode of arrival: ambulatory . Date/Time Provider Initiated Documentation: 06/26/22 06:32 . Limitations to Documentation: no limitations . Information obtained by: patient . HPI Narrative: Patient is a 51-year-old male with a history of multiple comorbidities including morbid obesity, hypertension, hyperlipidemia, COPD, CHF, GERD, coronary artery disease, history of cardiac arrest, AICD, former alcohol abuse now in remission, former opiate abuse now on Suboxone presents for worsening shortness of breath and left leg pain and swelling. Patient was admitted here 2 weeks ago for left lower node pneumonia and left thigh cellulitis and found to be negative for DVT and discharged home on Levaquin. He states he is taking his last dose of Levaquin today. He states his shortness of breath is significantly worse with exertion and states he can only walk a few steps without becoming significantly short of breath. He does also endorse a cough with green-kolb sputum. He states he has had worsening left foot and leg swelling as well. He denies any known fever, chest pain, vomiting, abdominal pain or diarrhea. Related Data Home Medications Medication Instructions Recorded Confirmed amiodarone 200 mg tablet 200 mg PO DAILY 01/06/22 06/26/22 aspirin 81 mg tablet,delayed 81 mg PO DAILY 01/06/22 06/26/22 release atorvastatin 80 mg tablet 80 mg PO DAILY #30 tabs 01/06/22 06/26/22 clopidogrel 75 mg tablet (Plavix) 75 mg PO DAILY #30 tabs 01/06/22 06/26/22 folic acid 1 mg tablet 2 mg PO DAILY #30 tabs 01/06/22 06/26/22 hydralazine 50 mg tablet 50 mg PO TID #90 tabs 01/06/22 06/26/22 isosorbide mononitrate 30 mg 30 mg PO DAILY 01/06/22 06/26/22 tablet,extended release 24 hr losartan 25 mg tablet 25 mg PO DAILY #30 tabs 01/06/22 06/26/22 pantoprazole 40 mg tablet,delayed 40 mg PO DAILY #30 tabs 01/06/22 06/26/22 release (Protonix) ranolazine 500 mg tablet,extended 500 mg PO BID 01/06/22 06/26/22 release,12 hr buprenorphine 2 mg-naloxone 0.5 mg 1 film sublingual DAILY 01/26/22 06/26/22 sublingual film buspirone 15 mg tablet 15 mg PO BID 03/31/22 06/26/22 nitroglycerin 0.4 mg sublingual 0.4 mg sublingual Q5-15M PRN 03/31/22 06/26/22 tablet buprenorphine 8 mg-naloxone 2 mg 1 film sublingual DAILY 04/20/22 06/26/22 sublingual film (Suboxone) lorazepam 0.5 mg tablet 0.5 mg PO BID PRN 04/20/22 06/26/22 metoprolol succinate 25 mg 25 mg PO DAILY 04/20/22 06/26/22 tablet,extended release 24 hr citalopram 20 mg tablet 20 mg PO DAILY 06/14/22 06/26/22 bumetanide 1 mg tablet 1 mg PO BID 06/15/22 06/26/22 gabapentin 300 mg capsule 300 mg PO TID 06/15/22 06/26/22 trazodone 50 mg tablet 50 mg PO HS 06/15/22 06/26/22 albuterol sulfate 90 mcg/actuation 2 inh inhalation Q4H PRN #1 ea 06/17/22 06/26/22 breath activated powder inhaler levofloxacin 750 mg tablet 750 mg PO DAILY #10 tabs 06/17/22 06/26/22 tiotropium 2.5 mcg-olodaterol 2.5 2 puff inhalation DAILY #4 grams 06/17/22 06/26/22 mcg/actuation mist for inhalation (Stiolto Respimat) Previous Rx's Medication Instructions Recorded atorvastatin 80 mg tablet 80 mg PO DAILY #30 tabs 01/06/22 clopidogrel 75 mg tablet (Plavix) 75 mg PO DAILY #30 tabs 01/06/22 folic acid 1 mg tablet 2 mg PO DAILY #30 tabs 01/06/22 hydralazine 50 mg tablet 50 mg PO TID #90 tabs 01/06/22 losartan 25 mg tablet 25 mg PO DAILY #30 tabs 01/06/22 pantoprazole 40 mg tablet,delayed 40 mg PO DAILY #30 tabs 01/06/22 release (Protonix) albuterol sulfate 90 mcg/actuation 2 inh inhalation Q4H PRN #1 ea 06/17/22 breath activated powder inhaler levofloxacin 750 mg tablet 750 mg PO DAILY #10 tabs 06/17/22 tiotropium 2.5 mcg-olodaterol 2.5 2 puff inhalation DAILY #4 grams 06/17/22 mcg/actuation mist for inhalation (Stiolto Respimat) Allergies Allergy/AdvReac Type Severity Reaction Status Date / Time hydromorphone [From Dilaudid] Allergy Verified 06/26/22 07:18 General Stated Complaint: SOB GLADIS: 3 Review of Systems <Lisa Nieto DO - Last Filed: 06/26/22 08:05> All systems reviewed & are unremarkable except as noted in HPI and below Constitutional Constitutional: Reports as per HPI, Denies chills and Denies fever(s) Eyes Eyes: Denies blurry vision ENT Ears, Nose, Mouth, and Throat: Denies dizziness, Denies sore throat and Denies throat swelling Cardiovascular Cardiovascular: Denies chest pain and Denies dyspnea Respiratory Respiratory: Denies cough and Denies dyspnea Gastrointestinal Gastrointestinal: Denies abdominal pain, Denies diarrhea and Denies vomiting Genitourinary Genitourinary: Denies hematuria and Denies dysuria Musculoskeletal Musculoskeletal: Denies back pain and Denies numbness Integumentary/Breasts Skin/Breast: Denies lesions and Denies rash Neurologic Neurologic: Denies dizziness, Denies localized weakness and Denies numbness Allergic/Immunologic Allergic/Immunologic: Denies throat swelling PFSH <Lisa Nieto DO - Last Filed: 06/26/22 08:05> All Active Problems (Updated 06/26/22 @ 09:37 by Israel Rosa DO) Cough (Acute) Consolidation of left lower lobe of lung (Acute) Anxiety (Acute) Cellulitis of leg, left (Acute) Angina pectoris (Chronic) GERD (gastroesophageal reflux disease) (Chronic) Depression (Chronic) Morbid obesity (Chronic) AICD (automatic cardioverter/defibrillator) present (Acute) placed at [facility] for ischemic dilated cardiomyopathy Sruthi Robles DR 01/27/21 RH HLD (hyperlipidemia) (Acute) ETOH abuse (Chronic) Drug dependence (Acute) COPD (chronic obstructive pulmonary disease) (Chronic) Acute on chronic heart failure with reduced ejection fraction and diastolic dysfunction (Acute) Ischemic cardiomyopathy (Chronic) Afib (Chronic) Tobacco use disorder (Acute) Hx of hyperlipidemia (Acute) HTN (hypertension) (Chronic) CAD (coronary artery disease) (Chronic) Medical History (Updated 06/26/22 @ 09:37 by Israel Rosa DO) Alcohol use disorder, severe, dependence [id number] 01/21 Cardiac arrest CHF (congestive heart failure) Dental infection Exertional chest pain Homelessness Medication monitoring encounter Pacemaker Pulmonary nodules Surgical History (Updated 06/14/22 @ 17:47 by Mallory Booth NP) History of coronary artery stent placement History of hernia repair History of right knee joint replacement History of tonsillectomy Social History Smoking/Tobacco Use Status: Current-Occasional Tobacco Type: cigarettes Smoking risk assessment performed?: Yes Alcohol Intake: former Year quit: 2020 Details: Former heavy alcohol use. Drug use: Current Sobriety Substance use type: former substance user, marijuana and prescription drug Do you feel safe at home: Yes Do you feel safe in your relationship?: Yes Exam <Lisa Nieto DO - Last Filed: 06/26/22 08:05> Const General: cooperative and no acute distress Nutritional Appearance: obese morbidly obese Orientation: alert, awake and oriented x3 HENMT Head: normal to inspection Face and sinus: normal facial exam Eyes General: appearance normal, both eyes and all related structures Pupils: PERRL EOM: EOM intact bilaterally Neck Neck: normal visual inspection and No submandibular swelling Lymphatic: no lymphadenopathy noted Chest Chest: normal inspection of the chest and no tenderness Resp Effort & Inspection: normal respiratory effort and able to speak in complete sentences Auscultation: diminished lung sounds bilaterally throughout Cardio Rate: regular rate Rhythm: regular rhythm GI Inspection: normal to inspection and obesity Palpation: soft, not firm, not rigid and nontender Auscultation: hypoactive bowel sounds Skin General skin exam: no rashes or lesions noted Neuro General: patient alert, patient awake and patient oriented x3 Cognition: normal cognition Speech: speech normal Motor: muscle tone normal throughout Sensory Exam: no sensory deficits noted Extrem General: full ROM and calf tenderness Upper/lower leg/hip images: 1. There is an approximate 4 x 4 centimeter area of induration and tenderness to the left medial thigh. There is minimal surrounding erythema. There is no obvious fluctuance, drainage or bleeding. No crepitus. Other: 1+ pitting edema bilateral lower extremities. Rubor discoloration to bilateral lower extremities likely consistent with venous stasis. Psych Appearance: grossly normal Mental Status: mental status grossly normal Speech and Movement: speech and movement normal Affect: normal affect Course <Lisa Nieto DO - Last Filed: 06/26/22 08:05> Vital Signs Vital signs: Vital Signs Temperature 97.0 F L 06/26/22 06:34 Pulse 76 06/26/22 06:34 Respiratory Rate 22 06/26/22 06:34 Blood Pressure 133/75 06/26/22 06:34 Pulse Oximetry 97 06/26/22 06:34 Temperature 97.0 F L 06/26/22 06:34 Temperature Source Oral 06/26/22 06:34 Pulse 68 06/26/22 07:20 Pulse 65 06/26/22 07:21 Respiratory Rate 23 06/26/22 07:21 Respiratory Effort Short of Breath 06/26/22 07:02 Respiratory Depth Normal 06/26/22 07:02 Respiratory Pattern Tachypnea 06/26/22 07:02 Blood Pressure 120/84 06/26/22 07:20 Blood Pressure Mean 93 06/26/22 07:20 Pulse Oximetry 91 L 06/26/22 07:21 Oxygen Delivery Method Room Air 06/26/22 06:34 Oxygen Flow Rate 0 06/26/22 06:34 Pain Level 8 06/26/22 06:34 Sign Out <Lisa Nieto DO - Last Filed: 06/26/22 08:05> Sign Out Data: Sign Out Comment: Worsening shortness of breath and left thigh pain and swelling. Admitted here recently and treated for left lower lobe pneumonia and left thigh cellulitis. Last dose of oral Levaquin today. Follow-up on labs and imaging and disposition. Last updated by Lisa Nieto DO at 06/26/22 08:08
[2022-06-26 07:51] LABS: Abs Immature Grans 0.04 10^3/uL (0.0-0.06); Absolute Eosinophil Count 1.21 10^3/uL (0.0-0.7); Absolute Lymphocyte Count 2.42 10^3/uL (1.2-3.4); Absolute Monocyte Count 0.87 10^3/uL (0.1-0.8); Absolute Neutrophil Count 6.19 10^3/uL (1.2-6.7); Basophils % 0.9; Eosinophils % 11.2; HCT 40.8 % (40.0-50.0); HGB 12.7 g/dL (13.5-17.5); Immature Grans % 0.4; Lymphocytes % 22.3; MCH 29.1 pg (27.0-33.0); MCHC 31.1 % (32.0-36.0); MCV 93 fL (80-95); MPV 9.1 fL (8.0-11.0); Neutrophils % 57.2; Platelet Count 490 10^3/uL (130-400); RBC 4.37 10^6/uL (4.36-5.78); RDW 14.1 % (11.8-14.1); RDW-SD 47.8 fL; WBC 10.83 10^3/uL (4.4-10.8)
[2022-06-26] MEDS: Albuterol/Ipratropium 3 ML UPD VIAL UPD (07:55)
[2022-06-26] MEDS: LORazepam 2 MG/ML VIAL 1 MG IVP (07:55)
[2022-06-26] MEDS: ACETAMINOPHEN 1,000 MG/100 ML BTL 400 MG IVPB (07:55)
[2022-06-26] MEDS: Normal Saline 250 ML IV (07:56)
[2022-06-26 08:13] LABS: ALT 17 U/L (16-63); AST 16 U/L (15-37); Albumin 3.3 g/dL (3.4-5.0); Alkaline Phosphatase 86 U/L (46-116); Anion Gap 5.6 mmol/L (3-11); BUN 9 mg/dL (7-18); Bilirubin, Total 0.6 mg/dL (0.2-1.0); CO2 30.4 mmol/L (21.0-32.0); Calcium 9.1 mg/dL (8.5-10.1); Chloride 99 mmol/L (98-107); Glucose 134 mg/dL (74-106); Lipase 14 U/L (16-77); Magnesium 1.8 mg/dL (1.8-2.4); Potassium 3.6 mmol/L (3.5-5.1); Sodium 135 mmol/L (136-145); Total Protein 8.3 g/dL (6.4-8.2); Troponin I < 50 ng/L (<or=60)
[2022-06-26] MEDS: Normal Saline - Diluent 50 ML VIAL IJ (08:28)
[2022-06-26] MEDS: Omnipaque 350 MG/ML 100 ML BTL IJ (08:28)
[2022-06-26 09:11] LABS: COVID-19 PCR Negative (Negative); Influenza A PCR Negative (Negative); Influenza B PCR Negative (Negative); RSV PCR Negative (Negative)
[2022-06-26 09:13] LABS: Source Nasopharynx
== END 2022-06-26 09:51 | disposition home or self-care (01) ==
PROVIDERS: Physician Assistant; Emergency Provider Student in an Organized Health Care Education/Training Program; PCP Nurse Practitioner Family
DX: R05.9 Cough, unspecified (principal); R06.02 Shortness of breath; M79.652 Pain in left thigh; M79.89 Other specified soft tissue disorders; E66.01 Morbid (severe) obesity due to excess calories; J98.11 Atelectasis; I11.0 Hypertensive heart disease with heart failure; I50.9 Heart failure, unspecified; J44.9 Chronic obstructive pulmonary disease, unspecified; I25.10 Atherosclerotic heart disease of native coronary artery without angina pectoris; F17.210 Nicotine dependence, cigarettes, uncomplicated; Z86.74 Personal history of sudden cardiac arrest; Z79.82 Long term (current) use of aspirin; Z95.5 Presence of coronary angioplasty implant and graft; Z20.822 Contact with and (suspected) exposure to COVID-19
CPT/HCPCS: 71275; 80053; 83690; 87637; 93005; 94640; 96365; 96375; 99285; 83735; 84484; 85025; 93010; 93971; J0131; J2060; J3490; J7620

== ENCOUNTER 2022-07-01 08:26 | Outpatient (CLI) | payer MEDICAID, SELFPAY ==
--- NOTE | 2022-07-01 08:15 | RT.EKG_ITS ---
APPROVED REPORT Exam: Resting ECG Reason for Exam: NPW, Baseline needed Patient Location: O HR:79 bpm ECG Measurements Heart Rate 79 AXIS RI 110 P 63 QRSd 108 QRS 36 QT 408 T 104 QTc 468 Conclusion Sinus rhythm...normal P axis, V-rate 50- 99 Borderline short RI interval...RI int <120mS Abnormal inferior Q waves...Qs add to 80 mS in II III aVF Abnormal T, consider ischemia, lateral leads...T <-0.20mV, I aVL V5 V6
== END 2022-07-01 08:27 | disposition home or self-care (01) ==
LOC: DI.CARD 08:27
PROVIDERS: PCP Nurse Practitioner Family; Visit Provider Internal Medicine Cardiovascular Disease
DX: I25.10 Atherosclerotic heart disease of native coronary artery without angina pectoris (principal); R94.31 Abnormal electrocardiogram [ECG] [EKG]
CPT/HCPCS: 93010

== ENCOUNTER 2022-07-22 16:50 | Inpatient (IN) | payer MEDICAID, SELFPAY ==
[2022-07-22] VITALS (28 sets, daily range): BP systolic 100–166; BP diastolic 61–97; PULSE 68–85; RESP 11–24; TEMP 36.5–36.8; O2SAT 92–100
--- NOTE | 2022-07-22 | DI.RAD_ITS ---
Exam(s) XR PORTABLE CHEST AP EXAM: XR PORTABLE CHEST AP CLINICAL HISTORY: CHEST PAIN TECHNIQUE: 2D digital imaging was performed of the chest. One images were obtained. AP views were obtained. COMPARISON: CR,XR XR PORTABLE CHEST AP from 02/22/2022 FINDINGS: MEDIASTINUM: Normal. HEART: Normal. There is a stable cardiac pacing device. PULMONARY VASCULATURE: There is mild pulmonary venous congestion. LUNGS: Clear. PLEURAL SPACE: No pleural effusion or pneumothorax. BONE:Within normal limits for the patient's age. OTHER FINDINGS:Normal. IMPRESSION: Question of mild pulmonary venous congestion. No focal consolidating infiltrates. Please correlate clinically. DATA REPOSITORY: RADIATION DOSE DELIVERED:
--- NOTE | 2022-07-22 16:45 | RT.EKG_ITS ---
APPROVED REPORT Exam: Resting ECG Reason for Exam: SOB Patient Location: E HR:73 bpm ECG Measurements Heart Rate 73 AXIS AZ 173 P 42 QRSd 109 QRS 18 QT 412 T 111 QTc 455 Conclusion Sinus rhythm...normal P axis, V-rate 60- 99 Inferior infarct, old...Q >35mS, II III aVF Nonspecific T abnormalities, lateral leads...T <-0.10mV, I aVL V5 V6 st dep I, aVL
[2022-07-22 22:30] LABS: Source Nasal/Nares
[2022-07-22 23:06] LABS: COVID-19 PCR Negative (Negative)
--- NOTE | 2022-07-22 23:29 | HPE_ITS ---
Date of service: 07/22/22 Time of Service: 23:29 Assessment and Plan Assessment and plan (1) Acute on chronic diastolic (congestive) heart failure: Status: Acute Assessment and plan: Will diurese with furosemide 40 mg IV BID. Monitor on tele. Monitor I/Os, daily weights, Cr. (2) Intermittent chest pain: Status: Acute Assessment and plan: No evidence of ACS by troponins or EKGs. CP is musculoskeletal based on my evaluation. No further testing needed. Will trial a lidocaine patch. (3) COPD (chronic obstructive pulmonary disease): Status: Chronic Assessment and plan: Continue home therapy (4) Drug dependence: Status: Chronic Assessment and plan: Continue suboxone. (5) CAD (coronary artery disease): Status: Chronic Assessment and plan: Continue home therapy (6) DVT prophylaxis: Status: Acute Assessment and plan: SC enoxaparin (7) Discharge planning issues: Status: Acute Assessment and plan: Full code History of Present Illness History of Present Illness Chief Complaint: BLE swelling and discomfort Narrative: Mr Gunderson is a 51 year old male with PMHx of CAD [place] [place]ICD, as well as h/o chronic diastolic CHF, ICMO, Afib on amiodarone and not on anticoagulation, HTN, hyperlipidemia, who presented to [facility] ED today c/o worsening swelling of BLEs despite compliance with home torsemide 20 mg PO BID. The patient does state that he is not watching his salt intake like he should and does not currently have a weight scale at home. Good response to 20 mg of IV furosemide in the ER. The patient also reported ongoing intermittent chest pains. They are described as sharp, like a broken rib, at the left of his anterior chest, reproducible with palpation. He ruled out for ACS by serial troponins and EKGs. Hospitalist admission was requested for continued diuresis. His last admission with us at [facility] was 06/14/22-06/17/22 for CHF as well as COPD exacerbations. Review of Systems All systems reviewed & are unremarkable except as noted in HPI and below PFSH All Active Problems (Updated 07/22/22 @ 23:55 by Tanja Gaines MD) Discharge planning issues (Acute) DVT prophylaxis (Acute) Intermittent chest pain (Acute) Acute on chronic diastolic (congestive) heart failure (Acute) Diastolic heart failure (Acute) Cough (Acute) Consolidation of left lower lobe of lung (Acute) Anxiety (Acute) Cellulitis of leg, left (Acute) Angina pectoris (Chronic) GERD (gastroesophageal reflux disease) (Chronic) Depression (Chronic) Morbid obesity (Chronic) AICD (automatic cardioverter/defibrillator) present (Acute) placed at [facility] for ischemic dilated cardiomyopathy [employer] Stephonpeter MACDONALD 01/27/21 RH HLD (hyperlipidemia) (Acute) ETOH abuse (Chronic) Drug dependence (Chronic) COPD (chronic obstructive pulmonary disease) (Chronic) Acute on chronic heart failure with reduced ejection fraction and diastolic dysfunction (Acute) Ischemic cardiomyopathy (Chronic) Afib (Chronic) Tobacco use disorder (Acute) Hx of hyperlipidemia (Acute) HTN (hypertension) (Chronic) CAD (coronary artery disease) (Chronic) Medical History Alcohol use disorder, severe, dependence [facility] 01/21 Cardiac arrest CHF (congestive heart failure) Dental infection Exertional chest pain Homelessness Medication monitoring encounter Pacemaker Pulmonary nodules Surgical History History of coronary artery stent placement History of hernia repair History of right knee joint replacement History of tonsillectomy Social History Smoking/Tobacco Use Status: Current-Occasional Tobacco Type: cigarettes Smoking risk assessment performed?: Yes Alcohol Intake: former Year quit: 2020 Details: Former heavy alcohol use. Drug use: Current Sobriety Substance use type: former substance user, marijuana and prescription drug Do you feel safe at home: Yes Do you feel safe in your relationship?: Yes Meds Allergies and Home Medications Allergies Allergy/AdvReac Type Severity Reaction Status Date / Time hydromorphone [From Dilaudid] Allergy Verified 07/03/22 09:47 Home Medications Medication Instructions Recorded Confirmed Type amiodarone 200 mg tablet 200 mg PO DAILY 01/06/22 07/22/22 History aspirin 81 mg tablet,delayed 81 mg PO DAILY 01/06/22 07/22/22 History release atorvastatin 80 mg tablet 80 mg PO DAILY #30 tabs 01/06/22 07/22/22 Rx clopidogrel 75 mg tablet (Plavix) 75 mg PO DAILY #30 tabs 01/06/22 07/22/22 Rx folic acid 1 mg tablet 2 mg PO DAILY #30 tabs 01/06/22 07/22/22 Rx hydralazine 50 mg tablet 50 mg PO TID #90 tabs 01/06/22 07/22/22 Rx isosorbide mononitrate 30 mg 30 mg PO DAILY 01/06/22 07/22/22 History tablet,extended release 24 hr losartan 25 mg tablet 25 mg PO DAILY #30 tabs 01/06/22 07/22/22 Rx pantoprazole 40 mg tablet,delayed 40 mg PO DAILY #30 tabs 01/06/22 07/22/22 Rx release (Protonix) ranolazine 500 mg tablet,extended 500 mg PO BID 01/06/22 07/22/22 History release,12 hr buprenorphine 2 mg-naloxone 0.5 mg 1 film sublingual DAILY 01/26/22 07/22/22 History sublingual film buspirone 15 mg tablet 15 mg PO BID 03/31/22 07/22/22 History buprenorphine 8 mg-naloxone 2 mg 1 film sublingual DAILY 04/20/22 07/22/22 History sublingual film (Suboxone) lorazepam 0.5 mg tablet 0.5 mg PO BID PRN 04/20/22 07/22/22 History metoprolol succinate 25 mg 25 mg PO DAILY 04/20/22 07/22/22 History tablet,extended release 24 hr citalopram 20 mg tablet 20 mg PO DAILY 06/14/22 07/22/22 History gabapentin 300 mg capsule 300 mg PO TID 06/15/22 07/22/22 History albuterol sulfate 90 mcg/actuation 2 inh inhalation Q4H PRN #1 ea 06/17/22 07/22/22 Rx breath activated powder inhaler tiotropium 2.5 mcg-olodaterol 2.5 2 puff inhalation DAILY #4 grams 06/17/22 07/22/22 Rx mcg/actuation mist for inhalation (Stiolto Respimat) nitroglycerin 0.4 mg sublingual 0.4 mg sublingual Q5-15M PRN chest 07/03/22 Rx tablet pain #90 tabs torsemide 20 mg tablet 20 mg PO BID #180 tabs 07/03/22 07/22/22 Rx Exam Narrative Exam Narrative: General: Somnolent arousable middle-aged male who is A&Ox3, NAD Neurological: A&Ox3, no focal deficits Psychiatric: Appropriate speech pattern/content Skin: Visible skin dry, intact; BLE chronic venous stasis. HEENT: Atraumatic, normocephalic, EOMI, MMM, large neck diameter, no submandibular or cervical lymphadenopathy, ?goiter/JVD (unable to tell due to a natomy) Cardiovascular: RRR, no m/r/g, CP is reproducible with palpation Lungs: very faint bibasilar crackles Gastrointestinal: soft, nontender, nondsistended Genitourinary: deferred Extremities: 2+ BLE edema to B thighs, R>L, no c/c; I am unable to palpate pedal pulses Results Imaging Additional studies: CXR: possible mild CHF EKG #1: HR 73, NSR, nonspecific ST-T changes, no acute ischemia EKG #2: HR 71, NSR, unchanged Labs 07/22/22 17:28 07/22/22 17:28 Labs: Laboratory Results - last 24 hr 07/22/22 22:26 COVID-19 Source Nasal/Nares SARS-CoV-2 (PCR) Negative Labs in the ER: CBC: WBC 7.96, H/H 13.1/42.0, Plts 441 Chemistry: Na 140 K 4.0 Cl 103 Bicarb 34 BUN 5 Cr 0.91 Glucose 126 NT-proBNP 450 Troponin negative x 2 Last Vital Signs Temp 36.8 C 07/22/22 16:56 Pulse 75 07/22/22 20:01 Resp 15 07/22/22 20:01 BP 166/97 H 07/22/22 20:01 Pulse Ox 97 07/22/22 19:46 Time Spent Time spent with Patient: 55-74 minutes Time was spent: preparing to see the patient(eg.review tests), obtaining and/or reviewing separately otained hiistory, ordering medications,tests, procedures, referring, communicating with other health care consultant, indepentently interpreting results, counseling the patient and care coordination
[2022-07-23] VITALS (9 sets, daily range): BP systolic 101–130; BP diastolic 63–71; PULSE 62–78; RESP 14–18; TEMP 36.1–36.7; O2SAT 89–94
[2022-07-23] MEDS: Enoxaparin 40 MG/0.4 ML SYR SC (00:12)
[2022-07-23] MEDS: Acetaminophen 325 MG TAB PO ×2 (02:29→10:53)
[2022-07-23] MEDS: LORazepam 0.5 MG TAB PO ×2 (02:30→18:51)
[2022-07-23 07:02] LABS: Abs Immature Grans 0.01 10^3/uL (0.0-0.06); Absolute Basophil Count 0.07 10^3/uL (0.0-0.2); Absolute Eosinophil Count 0.69 10^3/uL (0.0-0.7); Absolute Lymphocyte Count 2.04 10^3/uL (1.2-3.4); Absolute Monocyte Count 0.84 10^3/uL (0.1-0.8); Absolute Neutrophil Count 3.72 10^3/uL (1.2-6.7); Basophils % 0.9; Eosinophils % 9.4; HCT 37.8 % (40.0-50.0); HGB 11.8 g/dL (13.5-17.5); Immature Grans % 0.1; Lymphocytes % 27.7; MCH 28.9 pg (27.0-33.0); MCHC 31.2 % (32.0-36.0); MCV 92 fL (80-95); MPV 8.6 fL (8.0-11.0); Monocytes % 11.4; Neutrophils % 50.5; Platelet Count 365 10^3/uL (130-400); RBC 4.09 10^6/uL (4.36-5.78); RDW 13.9 % (11.8-14.1); RDW-SD 46.9 fL; WBC 7.37 10^3/uL (4.4-10.8)
[2022-07-23 07:28] LABS: Anion Gap 2.2 mmol/L (3-11); BUN 6 mg/dL (7-18); CO2 33.8 mmol/L (21.0-32.0); CREATININE 0.9 mg/dL (0.70-1.30); Calcium 8.7 mg/dL (8.5-10.1); Chloride 104 mmol/L (98-107); Estimated GFR 102.12 (mL/min/1.73m2); Glucose 109 mg/dL (74-106); Magnesium 1.8 mg/dL (1.8-2.4); Potassium 3.7 mmol/L (3.5-5.1); Sodium 140 mmol/L (136-145); TSH (W/Ref FT4) 1.85 uIU/mL (0.36-3.74)
--- NOTE | 2022-07-23 08:00 | DI.US_ITS ---
Exam(s) US EXTREMITY VENOUS BI EXAM: US EXTREMITY VENOUS BI CLINICAL HISTORY: BLE edema. TECHNIQUE: Bilateral lower extremity venous ultrasound performed using grayscale, color-flow, and sp ectral Doppler analysis. COMPARISON: US US EXTREMITY VENOUS BI from 06/15/2022 FINDINGS: The right common femoral, femoral and popliteal veins demonstrate normal compressibility, augmentatio n, and color Doppler. The posterior tibial veins are patent. The saphenofemoral junctions are unremar kable. There is no evidence of a Brennan's cyst. The soft tissues are unremarkable. The left common femoral, femoral and popliteal veins demonstrate normal compressibility, augmentation , and color Doppler. The posterior tibial veins are patent. The saphenofemoral junctions are unremark able. There is no evidence of a Brennan's cyst. The soft tissues are unremarkable. IMPRESSION: 1. No evidence of a right lower extremity DVT. 2. No evidence of a left lower extremity DVT. DATA REPOSITORY:
[2022-07-23] MEDS: Atorvastatin 40 MG TAB 80 MG PO (08:35)
[2022-07-23] MEDS: Isosorbide Mononitrate 30 MG TABCR PO (08:35)
[2022-07-23] MEDS: hydrALAZINE 25 MG TAB 50 MG PO ×2 (08:35→13:38)
[2022-07-23] MEDS: Folic Acid 1 MG TAB 2 MG PO (08:35)
[2022-07-23] MEDS: Citalopram 20 MG TAB PO (08:36)
[2022-07-23] MEDS: Pantoprazole 40 MG TABCR PO (08:36)
[2022-07-23] MEDS: Ranolazine 500 MG TABCR PO ×2 (08:36→18:59)
[2022-07-23] MEDS: Gabapentin 300 MG CAP PO ×3 (08:36→18:51)
[2022-07-23] MEDS: Losartan 25 MG TAB PO (08:40)
[2022-07-23] MEDS: Metoprolol CR 25 MG TABCR PO (08:41)
[2022-07-23] MEDS: Aspirin E.C. 81 MG TABEC PO (08:41)
[2022-07-23] MEDS: Clopidogrel 75 MG TAB PO (08:41)
[2022-07-23] MEDS: Amiodarone 200 MG TAB PO (08:41)
[2022-07-23] MEDS: Lidocaine 5% Patch 1 PATCH TP (08:41)
[2022-07-23] MEDS: Tiotropium/Olodaterol 10 PUFF INHALER 2 PUFF IH (08:57)
--- NOTE | 2022-07-23 09:03 | PDOC.CMIN ---
- If Service Date Differs Date of service: 07/23/22 Time of Service: 09:03 Care Management Initial Assess REASON FOR HOSPITALIZATION:: CHF PAST MEDICAL HISTORY/PAST SURGICAL HISTORY:: All Active Problems (Updated 07/22/22 @ 23:55 by Tanja Gaines MD). Discharge planning issues (Acute). DVT prophylaxis (Acute). Intermittent chest pain (Acute). Acute on chronic diastolic (congestive) heart failure (Acute). Diastolic heart failure (Acute). Cough (Acute). Consolidation of left lower lobe of lung (Acute). Anxiety (Acute). Cellulitis of leg, left (Acute). Angina pectoris (Chronic). GERD (gastroesophageal reflux disease) (Chronic). Depression (Chronic). Morbid obesity (Chronic). AICD (automatic cardioverter/defibrillator) present (Acute). placed at [facility] for ischemic dilated cardiomyopathy [employer] Margaret MACDONALD 01/27/21 RH. HLD (hyperlipidemia) (Acute). ETOH abuse (Chronic). Drug dependence (Chronic). COPD (chronic obstructive pulmonary disease) (Chronic). Acute on chronic heart failure with reduced ejection fraction and diastolic dysfunction (Acute). Ischemic cardiomyopathy (Chronic). Afib (Chronic). Tobacco use disorder (Acute). Hx of hyperlipidemia (Acute). HTN (hypertension) (Chronic). CAD (coronary artery disease) (Chronic). Medical History . Alcohol use disorder, severe, dependence. [facility] 01/21. Cardiac arrest. CHF (congestive heart failure). Dental infection. Exertional chest pain. Homelessness. Medication monitoring encounter. Pacemaker. Pulmonary nodules. Surgical History . History of coronary artery stent placement. History of hernia repair. History of right knee joint replacement. History of tonsillectomy PREVIOUS FUNCTIONAL STATUS/SOCIAL/FAMILY SUPPORTS:: Pramod lives in [place]. He has a room at the [facility] through [employer]. Luis is going through a separation. He has two adult children who live out of state. He is currently not employed, due to his medical needs. He is independent at baseline but uses a cane on occasion. Luis also receives [employer] CURRENT FUNCTIONAL STATUS:: BENJI agreed to follow up tomorrow. Luis was laying in bed dozing when CM met with him. He apologized for being so sleepy and asked if CM could continue the conversation tomorrow. He explained that he has been up for over 24 hours and just needs rest. CM agreed to follow up tomorrow. ADVANCE DIRECTIVES:: none on file Has patient been provided with info about the portal/API?: Yes Did the patient sign up for the portal?: No CODE STATUS:: Full Code INSURANCE COVERAGE / FINANCIAL ISSUES:: Medicaid CURRENT HOME/COMMUNITY SERVICES/EQUIPMENT:: none PRIMARY CARE PHYSICIAN:: Gerri Silverman POTENTIAL DISCHARGE NEEDS:: Follow up with PCP, cardiology and plan of care PATIENT/FAMILY EDUCATION NEEDS:: Review of discharge instructions, activity, limitations, follow up plan, discuss Ask Me Three. TRANSPORTATION:: likely RCT coordinated by CM PLAN:: Anticipate Pramod will be discharged home with no new services. He will follow up with his community providers and plan of care and transport via [facility]. CM will follow and assess for dischgarge planning concerns.
[2022-07-23] MEDS: busPIRone 15 MG TAB PO ×2 (09:40→18:51)
[2022-07-23] MEDS: Buprenorphine/Naloxone 8 mg/2 mg FILM 1 EACH SL (09:40)
[2022-07-23] MEDS: Buprenorphine/Naloxone 2 mg/0.5 mg FILM 1 EACH SL (09:40)
[2022-07-23 11:04] LABS: Calcium 9.1 mg/dL (8.5-10.1)
[2022-07-23 11:05] LABS: ALT 84 U/L (16-63); AST 42 U/L (15-37); Alkaline Phosphatase 84 U/L (46-116); Anion Gap 2.9 mmol/L (3-11); BUN 5 mg/dL (7-18); Bilirubin, Total 0.6 mg/dL (0.2-1.0); CO2 34.1 mmol/L (21.0-32.0); CREATININE 0.9 mg/dL (0.70-1.30); Chloride 103 mmol/L (98-107); Estimated GFR 102.12 (mL/min/1.73m2); Glucose 126 mg/dL (74-106); Magnesium 1.8 mg/dL (1.8-2.4); NT-proBNP 450 pg/mL (<300); Sodium 140 mmol/L (136-145); Total Protein 7.8 g/dL (6.4-8.2); Troponin I < 50 ng/L (<or=60)
[2022-07-23 11:06] LABS: HGB 13.1 g/dL (13.5-17.5); MCH 28.9 pg (27.0-33.0); MCHC 31.2 % (32.0-36.0); MCV 93 fL (80-95); Platelet Count 441 10^3/uL (130-400); RBC 4.53 10^6/uL (4.36-5.78); RDW 14.2 % (11.8-14.1); RDW-SD 47.8 fL; WBC 7.96 10^3/uL (4.4-10.8)
[2022-07-23 11:07] LABS: Abs Immature Grans 0.02 10^3/uL (0.0-0.06); Absolute Basophil Count 0.06 10^3/uL (0.0-0.2); Absolute Eosinophil Count 0.73 10^3/uL (0.0-0.7); Absolute Lymphocyte Count 2.18 10^3/uL (1.2-3.4); Absolute Monocyte Count 0.81 10^3/uL (0.1-0.8); Absolute Neutrophil Count 4.16 10^3/uL (1.2-6.7); Basophils % 0.8; Eosinophils % 9.2; Immature Grans % 0.3; Lymphocytes % 27.4; Monocytes % 10.2; Neutrophils % 52.1
[2022-07-23] MEDS: metOLazone 2.5 MG TAB PO (12:11)
[2022-07-23] MEDS: Normal Saline Flush 10 ML SYR IVP ×2 (12:11→17:11)
[2022-07-23] MEDS: Furosemide 40 MG/4 ML VIAL IVP (12:11)
[2022-07-23] MEDS: Spironolactone 50 MG TAB PO (12:11)
[2022-07-23 12:37] LABS: Troponin I < 50 ng/L (<or=60)
--- NOTE | 2022-07-23 16:16 | W.PM.PROGNOT ---
Date of Service Date of service: 07/23/22 Time of Service: 16:16 Assessment and Plan Assessment and plan (1) Acute on chronic diastolic (congestive) heart failure: Status: Acute Assessment and plan: Begin spironolactone. Started Lasix drip goal is to diurese him to a net negative intake and output of 1 to 2 L/day. Patient is currently on losartan. Consider switching him to a Entresto once he is euvolemic. Continue hydralazine and isosorbide. Consider Jardiance once he is euvolemic. Professional time spent interviewing and examining patient, discussion of goals of care with hospital team (care management, nursing and consulting professionals) was 30 minutes. (2) COPD (chronic obstructive pulmonary disease): Status: Chronic Assessment and plan: Continue home therapy which includes Stiolto Respimat and albuterol as needed. (3) Drug dependence: Status: Chronic Assessment and plan: Continue suboxone. (4) CAD (coronary artery disease): Status: Chronic Assessment and plan: Continue home therapy which is at spread and and told to stay at noon as well as Plavix and isosorbide mononitrate and metoprolol succinate (5) DVT prophylaxis: Status: Acute Assessment and plan: SC enoxaparin Consider the addition of a D.O.A.C. given his known history of atrial fibrillation. (6) Discharge planning issues: Status: Acute Assessment and plan: Full code Subjective Subjective Interval history since last seen: Mr Gunderson is admitted for acute on chronic HFPEF. He reports progressive bilateral leg edema and dyspnea including orthopnea. He has a history of coronary artery disease with previous [place], [place] [facility] [place] post AICD placement, ischemic cardiomyopathy, atrial fibrillation on amiodarone but not anticoagulated, hypertension hyperlipidemia. Patient reportedly has been compliant with taking his home torsemide 20 mg twice a day. He says he does not add salt to his food but he is not careful about the type of foods he eats including salty crackers and chips etc. Does not have a weight scale at home so has not been monitoring his weight. Patient reportedly had a good response to 20 mg of Lasix in the emergency department last night. He was admitted for treatment of his acute CHF exacerbation however he was not put on any ongoing diuretics. Tonight we will get a put him on a Lasix drip give him spironolactone and I will give him a dose of metolazone. Exam Narrative Exam Narrative: Morbidly obese male lying in bed in semirecumbent position. He is alert and oriented person place time circumstance. Neck is obese difficult to discern JVD. Lungs with diminished breath sounds at the bases no rhonchi he does have some fine bibasilar rales. Heart is regular no appreciable murmur rub or thrill Abdomen is obese soft and nontender Lower extremities with 3+ pitting edema from his feet all the way up to his thighs. Neuro exam grossly intact nonfocal Objective Last Vital Signs Temp 36.1 C L 07/23/22 15:37 Pulse 62 07/23/22 15:37 Resp 18 07/23/22 15:37 BP 101/63 07/23/22 15:37 Pulse Ox 91 L 07/23/22 15:37 Laboratory Results - last 24 hr 07/22/22 07/22/22 07/22/22 17:20 17:20 20:05 WBC 7.96 RBC 4.53 Hgb 13.1 L Hct 42.0 MCV 93 MCH 28.9 MCHC 31.2 L RDW 14.2 H Plt Count 441 H MPV 9.0 Immature Gran % 0.3 Neutrophils % 52.1 Lymphocytes % 27.4 Monocytes % 10.2 Eosinophils % 9.2 Basophils % 0.8 Nucleated RBC % 0.0 Absolute Neutrophils 4.16 Absolute Lymphocytes 2.18 Absolute Monocytes 0.81 H Absolute Eosinophils 0.73 H Absolute Basophils 0.06 Sodium 140 Potassium 4.0 Chloride 103 Carbon Dioxide 34.1 H Anion Gap 2.9 L BUN 5 L Creatinine 0.9 Est GFR (CKD-EPI 2020) 102.12 Glucose 126 H Calcium 9.1 Magnesium 1.8 Total Bilirubin 0.6 AST 42 H ALT 84 H Alkaline Phosphatase 84 Troponin I < 50 < 50 NT-Pro-B Natriuret Pep 450 H Total Protein 7.8 Albumin 3.0 L TSH COVID-19 Source SARS-CoV-2 (PCR) 07/22/22 07/23/22 07/23/22 22:26 06:54 06:54 WBC 7.37 RBC 4.09 L Hgb 11.8 L Hct 37.8 L MCV 92 MCH 28.9 MCHC 31.2 L RDW 13.9 Plt Count 365 MPV 8.6 Immature Gran % 0.1 Neutrophils % 50.5 Lymphocytes % 27.7 Monocytes % 11.4 Eosinophils % 9.4 Basophils % 0.9 Nucleated RBC % 0.0 Absolute Neutrophils 3.72 Absolute Lymphocytes 2.04 Absolute Monocytes 0.84 H Absolute Eosinophils 0.69 Absolute Basophils 0.07 Sodium 140 Potassium 3.7 Chloride 104 Carbon Dioxide 33.8 H Anion Gap 2.2 L BUN 6 L Creatinine 0.9 Est GFR (CKD-EPI 2020) 102.12 Glucose 109 H Calcium 8.7 Magnesium 1.8 Total Bilirubin AST ALT Alkaline Phosphatase Troponin I NT-Pro-B Natriuret Pep Total Protein Albumin TSH 1.85 COVID-19 Source Nasal/Nares SARS-CoV-2 (PCR) Negative Time Spent with Patient Time Spent with Patient: 25-34 minutes Time was spent: preparing to see the patient(eg.review tests), obtaining and/or reviewing separately otained hiistory, ordering medications,tests, procedures, referring, communicating with other health intensive care ambulance paramedic, indepentently interpreting results, counseling the patient and care coordination
[2022-07-24] VITALS (10 sets, daily range): BP systolic 100–122; BP diastolic 50–74; PULSE 66–75; RESP 16–19; TEMP 36.1–36.8; O2SAT 93–98
[2022-07-24] MEDS: Enoxaparin 40 MG/0.4 ML SYR SC ×2 (00:39→23:10)
[2022-07-24] MEDS: Normal Saline Flush 10 ML SYR IVP (02:40)
[2022-07-24] MEDS: LORazepam 0.5 MG TAB PO ×3 (02:40→23:10)
[2022-07-24 07:11] LABS: Anion Gap 1.9 mmol/L (3-11); BUN 10 mg/dL (7-18); CO2 40.1 mmol/L (21.0-32.0); CREATININE 1.3 mg/dL (0.70-1.30); Calcium 9.7 mg/dL (8.5-10.1); Chloride 93 mmol/L (98-107); Estimated GFR 65.69 (mL/min/1.73m2); Glucose 107 mg/dL (74-106); Magnesium 1.9 mg/dL (1.8-2.4); Potassium 3.7 mmol/L (3.5-5.1); Sodium 135 mmol/L (136-145)
[2022-07-24] MEDS: Tiotropium/Olodaterol 10 PUFF INHALER 2 PUFF IH (08:32)
[2022-07-24] MEDS: Pantoprazole 40 MG TABCR PO (09:17)
[2022-07-24] MEDS: Aspirin E.C. 81 MG TABEC PO (09:18)
[2022-07-24] MEDS: Isosorbide Mononitrate 30 MG TABCR PO (09:18)
[2022-07-24] MEDS: Acetaminophen 325 MG TAB PO (09:18)
[2022-07-24] MEDS: Clopidogrel 75 MG TAB PO (09:18)
[2022-07-24] MEDS: Atorvastatin 40 MG TAB 80 MG PO (09:18)
[2022-07-24] MEDS: Losartan 25 MG TAB PO (09:18)
[2022-07-24] MEDS: Citalopram 20 MG TAB PO (09:18)
[2022-07-24] MEDS: Potassium Chloride 20 MEQ TABCR PO (09:19)
[2022-07-24] MEDS: Ranolazine 500 MG TABCR PO ×2 (09:19→20:17)
[2022-07-24] MEDS: Gabapentin 300 MG CAP PO ×3 (09:19→20:17)
[2022-07-24] MEDS: busPIRone 15 MG TAB PO ×2 (09:19→20:16)
[2022-07-24] MEDS: Spironolactone 50 MG TAB PO (09:19)
[2022-07-24] MEDS: Amiodarone 200 MG TAB PO (09:19)
[2022-07-24] MEDS: Buprenorphine/Naloxone 2 mg/0.5 mg FILM 1 EACH SL (09:20)
[2022-07-24] MEDS: Furosemide 40 MG/4 ML VIAL IVP ×2 (09:20→15:08)
[2022-07-24] MEDS: Buprenorphine/Naloxone 8 mg/2 mg FILM 1 EACH SL (09:20)
[2022-07-24] MEDS: hydrALAZINE 25 MG TAB 50 MG PO ×3 (09:20→20:17)
[2022-07-24] MEDS: Folic Acid 1 MG TAB 2 MG PO (09:20)
[2022-07-24] MEDS: Metoprolol CR 25 MG TABCR PO (09:20)
[2022-07-24] MEDS: Lidocaine 5% Patch 1 PATCH TP (09:21)
--- NOTE | 2022-07-24 14:06 | CMPROGNOTE_ITS ---
- If Service Date Differs Date of service: 07/24/22 Time of Service: 14:06 Care Management Progress Note S/O: Per report, Pramod continues to diurese well, and his lasiks was changed from a drip to IV push BID. He may require some medication changes. He continues to be closely monitored, and is not yet medically cleared. CM will continue to follow. A: Pramod is a 51 year old male admitted to [facility] on 07/22/22 for acute on chronic diastolic CHF. P: Anticipate Pramod will be discharged home with no new services. He will follow up with his community providers and plan of care and transport via [facility]. CM will follow and assess for dischgarge planning concerns.
--- NOTE | 2022-07-24 14:17 | W.PM.PROGNOT ---
Date of Service Date of service: 07/24/22 Time of Service: 14:17 Assessment and Plan Assessment and plan (1) Acute on chronic diastolic (congestive) heart failure: Status: Acute Assessment and plan: Continue spironolactone. Initiated on Lasix drip over night goal is to diurese him to a net negative intake and output of 1 to 2 L/day. He responded better than expected with I&O balance of -[id number] yesterday and -[phone] so far today. Changed from lasix drip to IV lasix pushes, 40mg BID. Patient is currently on losartan. Consider switching him to a Entresto once he is euvolemic. Continue hydralazine and isosorbide. Consider Jardiance once he is euvolemic. (2) COPD (chronic obstructive pulmonary disease): Status: Chronic Assessment and plan: Continue home therapy which includes Stiolto Respimat and albuterol as needed. (3) Drug dependence: Status: Chronic Assessment and plan: Continue suboxone. (4) CAD (coronary artery disease): Status: Chronic Assessment and plan: Continue home therapy of ASA, Plavix, isosorbide mononitrate and metoprolol succinate Denies CP. (5) DVT prophylaxis: Status: Acute Assessment and plan: SC enoxaparin Consider the addition of a D.O.A.C. given his known history of atrial fibrillation. (6) Discharge planning issues: Status: Acute Assessment and plan: Full code Subjective Subjective Patient reports: no new complaints (Somewhat less short of air with ambulation. ), tolerating a regular diet and afebrile; denies diarrhea or nausea Exam Narrative Exam Narrative: Morbidly obese male lying in bed in semirecumbent position. Neck is obese difficult to discern JVD. + FROM Lungs with diminished breath sounds at the bases. Clear. NC at 2L O2 in place. Heart is regular no appreciable murmur Abdomen is obese soft and nontender Lower extremities with 2+ pitting edema from his feet all the way up to his thighs. Neuro exam grossly intact nonfocal Objective Last Vital Signs Temp 36.8 C 07/24/22 07:30 Pulse 75 07/24/22 12:51 Resp 16 07/24/22 07:30 BP 122/74 07/24/22 07:30 Pulse Ox 93 07/24/22 08:33 Laboratory Results - last 24 hr 07/24/22 06:50 Sodium 135 L Potassium 3.7 Chloride 93 L Carbon Dioxide 40.1 H Anion Gap 1.9 L BUN 10 Creatinine 1.3 Est GFR (CKD-EPI 2020) 65.69 Glucose 107 H Calcium 9.7 Magnesium 1.9 Time Spent with Patient Time Spent with Patient: 25-34 minutes Time was spent: preparing to see the patient(eg.review tests), obtaining and/or reviewing separately otained hiistory, ordering medications,tests, procedures and indepentently interpreting results
[2022-07-24] MEDS: Docusate Sodium 100 MG CAP PO (15:02)
[2022-07-24] MEDS: diazePAM 2 MG TAB PO ×2 (15:45→20:17)
[2022-07-24] MEDS: Patch Removal 1 EACH TP (22:16)
[2022-07-25 03:28] VITALS: BP 116/67; PULSE 70; RESP 20; TEMP 36.5; O2SAT 96
[2022-07-25] MEDS: LORazepam 0.5 MG TAB PO (03:49)
[2022-07-25] MEDS: Acetaminophen 325 MG TAB PO (03:49)
[2022-07-25 06:22] VITALS: BP 133/81; PULSE 68; RESP 18; TEMP 36.4; O2SAT 94
[2022-07-25 06:49] LABS: ALT 52 U/L (16-63); AST 22 U/L (15-37); Albumin 3.1 g/dL (3.4-5.0); Alkaline Phosphatase 81 U/L (46-116); Anion Gap 3.2 mmol/L (3-11); BUN 15 mg/dL (7-18); Bilirubin, Total 0.5 mg/dL (0.2-1.0); CO2 39.8 mmol/L (21.0-32.0); Calcium 9.5 mg/dL (8.5-10.1); Chloride 95 mmol/L (98-107); Glucose 118 mg/dL (74-106); Potassium 3.6 mmol/L (3.5-5.1); Sodium 138 mmol/L (136-145); Total Protein 8.4 g/dL (6.4-8.2)
[2022-07-25] MEDS: Gabapentin 300 MG CAP PO ×2 (07:31→14:01)
[2022-07-25] MEDS: Losartan 25 MG TAB PO (07:31)
[2022-07-25] MEDS: Metoprolol CR 25 MG TABCR PO (07:32)
[2022-07-25] MEDS: Folic Acid 1 MG TAB 2 MG PO (07:32)
[2022-07-25] MEDS: Spironolactone 50 MG TAB PO (07:32)
[2022-07-25] MEDS: Ranolazine 500 MG TABCR PO (07:32)
[2022-07-25] MEDS: busPIRone 15 MG TAB PO (07:33)
[2022-07-25] MEDS: hydrALAZINE 25 MG TAB 50 MG PO ×2 (07:33→14:02)
[2022-07-25] MEDS: Amiodarone 200 MG TAB PO (07:33)
[2022-07-25] MEDS: Isosorbide Mononitrate 30 MG TABCR PO (07:33)
[2022-07-25] MEDS: Aspirin E.C. 81 MG TABEC PO (07:34)
[2022-07-25] MEDS: Potassium Chloride 20 MEQ TABCR PO (07:34)
[2022-07-25] MEDS: Atorvastatin 40 MG TAB 80 MG PO (07:34)
[2022-07-25] MEDS: diazePAM 2 MG TAB PO ×2 (07:34→14:02)
[2022-07-25] MEDS: Citalopram 20 MG TAB PO (07:34)
[2022-07-25] MEDS: Buprenorphine/Naloxone 2 mg/0.5 mg FILM 1 EACH SL (07:35)
[2022-07-25] MEDS: Buprenorphine/Naloxone 8 mg/2 mg FILM 1 EACH SL (07:35)
[2022-07-25] MEDS: Clopidogrel 75 MG TAB PO (07:52)
[2022-07-25] MEDS: Normal Saline Flush 10 ML SYR IVP (07:52)
[2022-07-25] MEDS: Pantoprazole 40 MG TABCR PO (07:52)
[2022-07-25] MEDS: Docusate Sodium 100 MG CAP PO (07:52)
[2022-07-25] MEDS: Furosemide 40 MG/4 ML VIAL IVP (07:53)
[2022-07-25] MEDS: Tiotropium/Olodaterol 10 PUFF INHALER 2 PUFF IH (08:40)
[2022-07-25] MEDS: Lidocaine 5% Patch 1 PATCH TP (09:15)
[2022-07-25 12:41] VITALS: PULSE 80; PULSE 82; PULSE 96; RESP 17; RESP 18; RESP 22; O2SAT 91; O2SAT 95; O2SAT 96
--- NOTE | 2022-07-25 13:08 | DSE_ITS ---
Date of service: 07/25/22 Time of Service: 13:08 DS: Diagnosis Discharge Diagnosis (1) Acute on chronic diastolic (congestive) heart failure: Status: Acute Asessment and Plan: Initiated on lasix 40mg IV BID initially, then changed to lasix drip then back to IV push lasix. He diuresed over 10L with a 5+ kg wt decrease. He was weaned from supplemental O2. He is well-versed on the need to maintain a low Na diet and has resources for reference regarding Na in foods. He will resume his home torsemide and may need this increased by his PCP if he starts to accumulate extra fluid again. (2) COPD (chronic obstructive pulmonary disease): Status: Chronic Asessment and Plan: Stable. Cont Stiolto and albuterol. (3) Drug dependence: Status: Chronic Asessment and Plan: Cont Suboxone. (4) CAD (coronary artery disease): Status: Chronic Asessment and Plan: Negative troponins x 2. No EKG changes concerning for acute ischemia. Cont ASA, Plavix, Imdur, Metoprolol. Also continue Ranolazine. Discharge Plan Disposition Patient Disposition: Home Condition: Good Discharge Details Reason For Visit: Acute on Chronic Diastolic CHF Admit Date/Time: 07/22/22 22:09 Admit Provider: Tanja Gaines Attending Provider: Tnaja Gaines Primary Care Provider: TIKI DOMINGUEZ Hospital Course Hospital Course: Mr Gunderson is a 51 year old male with PMHx of CAD s/p [place] [place]ICD, as well as h/o chronic diastolic CHF, ICMO, Afib on amiodarone and not on anticoagulation, HTN, hyperlipidemia, who presented to [facility] ED today c/o worsening swelling of BLEs despite compliance with home torsemide 20 mg PO BID. The patient does state that he is not watching his salt intake like he should and does not currently have a weight scale at home. Good response to 20 mg of IV furosemide in the ER. The patient also reported ongoing intermittent chest pains. They are described as sharp, like a broken rib, at the left of his anterior chest, reproducible with palpation. He ruled out for ACS by serial troponins and EKGs.? Hospitalist admission was requested for continued diuresis. His last admission with us at [facility] was 06/14/22-06/17/22 for CHF as well as COPD exacerbations. See Diagnosis PCP follow up in 1-2 weeks. Home Meds and New Rx's Prescriptions: Continued buspirone 15 mg tablet 15 mg PO BID nitroglycerin 0.4 mg tablet, sublingual 0.4 mg sublingual Q5-15M PRN (Reason: chest pain) Qty: 90 3RF Rx Instructions: do not exceed 3 doses per episode torsemide 20 mg tablet 20 mg PO BID Qty: 180 3RF lorazepam 0.5 mg tablet 0.5 mg PO BID PRN metoprolol succinate 25 mg tablet extended release 24 hr 25 mg PO DAILY citalopram 20 mg Tablet 20 mg PO DAILY gabapentin 300 mg Capsule 300 mg PO TID Stiolto Respimat 2.5-2.5 mcg/actuation mist 2 puff inhalation DAILY Qty: 4 0RF albuterol sulfate 90 mcg/actuation aerosol powdr breath activated 2 inh inhalation Q4H PRNQty: 1 0RF isosorbide mononitrate 30 mg Tablet Extended Release 24 Hr 30 mg PO DAILY aspirin 81 mg Tablet,Delayed Release (Dr/Ec) 81 mg PO DAILY ranolazine 500 mg Tablet Extended Release 12 Hr 500 mg PO BID atorvastatin 80 mg tablet 80 mg PO DAILY Qty: 30 0RF clopidogrel [Plavix] 75 mg tablet 75 mg PO DAILY Qty: 30 0RF folic acid 1 mg tablet 2 mg PO DAILY Qty: 30 0RF hydralazine 50 mg tablet 50 mg PO TID Qty: 90 0RF losartan 25 mg tablet 25 mg PO DAILY Qty: 30 0RF pantoprazole [Protonix] 40 mg tablet,delayed release (DR/EC) 40 mg PO DAILY Qty: 30 0RF amiodarone 200 mg Tablet 200 mg PO DAILY buprenorphine-naloxone 2-0.5 mg Film 1 film sublingual DAILY Rx Instructions: In addition to 8-2mg film (total daily dose: 10-2.5mg SL daily) No Action buprenorphine-naloxone [Suboxone] 8-2 mg Film 1 film sublingual DAILY Rx Instructions: In addition to 2mg-0.5mg film (total daily dose: 10-2.5mg SL daily) Discharge Instructions Instructions: Heart Failure (DC) Stand Alone Forms: Nursing Discharge Form Referrals: TIKI DOMINGUEZ [Primary Care Provider] - (Please call [phone] Wednesday to make an Appointment in the next 1-2 weeks ) Activity:: Activity as Tolerated Equipment/Supplies:: No Equipment Needed Diet:: heart healthy Discharge Orders Discharge Orders: Discharge Order (Routine); Ordered 07/25/22 Ordered By: Andriy Collier DS: Summary Time Spent with Patient providing and/or coordinating discharge services: Greater than 30 minutes Status at Discharge Functional status at discharge: independent ambulation Overall status at discharge: patient is progressing back to baseline Mental Status: mental status grossly normal Speech and Movement: speech clear Mood: congruent mood Affect: normal affect Exam Psych Mental Status: mental status grossly normal Speech and Movement: speech clear Mood: congruent mood Affect: normal affect DS: Data Vitals/I&O Vitals and I&O: Vital Signs Temperature 36.4 C L 07/25/22 06:22 Temperature Source Tympanic 07/25/22 06:22 Pulse 68 07/25/22 06:22 Pulse Rhythm Regular 07/25/22 07:40 Pulse 77 07/22/22 20:01 Respiratory Rate 18 07/25/22 06:22 Respiratory Effort Normal, Non-Labored 07/25/22 07:40 Respiratory Depth Normal 07/25/22 07:40 Respiratory Pattern Normal 07/25/22 07:40 Blood Pressure 133/81 07/25/22 06:22 Blood Pressure Mean 113 07/22/22 20:01 Pulse Oximetry 94 07/25/22 06:22 Oxygen Delivery Method Nasal Cannula 07/25/22 06:22 Oxygen Flow Rate 1 07/25/22 06:22 Pain Level 8 07/25/22 07:40 Comment Pt O2 was 89% so O2 via nasal cannula was applied. 07/23/22 07:40 Intake & Output 07/24/22 07/25/22 07/25/22 23:59 11:59 23:59 Output Total 1625 / 4650 1175 / 1175 Balance -1625 / -4536.833 -1175 / -1175 Weight 161.3 kg Output: Urine 1625 / 4650 1175 / 1175 Other: Urine Color Yellow Yellow Straw Urine Appearance Clear Clear Urine Odor Normal Normal Voiding Methods Urinal Urinal Data Completed and Pending Labs on day of discharge: Labs from last 24 hours 07/25/22 05:23 Sodium 138 Potassium 3.6 Chloride 95 L Carbon Dioxide 39.8 H Anion Gap 3.2 BUN 15 Creatinine 1.0 Est GFR (CKD-EPI 2020) 90.00 Glucose 118 H Calcium 9.5 Total Bilirubin 0.5 AST 22 ALT 52 Alkaline Phosphatase 81 Total Protein 8.4 H Albumin 3.1 L PFSH All Active Problems Discharge planning issues (Acute) DVT prophylaxis (Acute) Intermittent chest pain (Acute) Acute on chronic diastolic (congestive) heart failure (Acute) Diastolic heart failure (Acute) Cough (Acute) Consolidation of left lower lobe of lung (Acute) Anxiety (Acute) Cellulitis of leg, left (Acute) Angina pectoris (Chronic) GERD (gastroesophageal reflux disease) (Chronic) Depression (Chronic) Morbid obesity (Chronic) AICD (automatic cardioverter/defibrillator) present (Acute) placed at [facility] for ischemic dilated cardiomyopathy [employer] 01/27/21 RH HLD (hyperlipidemia) (Acute) ETOH abuse (Chronic) Drug dependence (Chronic) COPD (chronic obstructive pulmonary disease) (Chronic) Acute on chronic heart failure with reduced ejection fraction and diastolic dysfunction (Acute) Ischemic cardiomyopathy (Chronic) Afib (Chronic) Tobacco use disorder (Acute) Hx of hyperlipidemia (Acute) HTN (hypertension) (Chronic) CAD (coronary artery disease) (Chronic) Medical History Alcohol use disorder, severe, dependence [facility] 01/21 Cardiac arrest CHF (congestive heart failure) Dental infection Exertional chest pain Homelessness Medication monitoring encounter Pacemaker Pulmonary nodules Surgical History History of coronary artery stent placement History of hernia repair History of right knee joint replacement History of tonsillectomy Social History Smoking/Tobacco Use Status: Current-Occasional Tobacco Type: cigarettes Smoking risk assessment performed?: Yes Alcohol Intake: former Year quit: 2020 Details: Former heavy alcohol use. Drug use: Current Sobriety Substance use type: former substance user, marijuana and prescription drug Do you feel safe at home: Yes Do you feel safe in your relationship?: Yes Time Spent with Patient Time Spent with Patient: <45 minutes Time was spent: preparing to see the patient(eg.review tests), indepentently interpreting results, counseling the patient and care coordination
[2022-07-25 14:08] VITALS: BP 122/68; PULSE 72; RESP 17; TEMP 36.5; O2SAT 93
--- NOTE | 2022-07-25 18:16 | PDOC.CMDIS ---
- If Service Date Differs Date of service: 07/25/22 Time of Service: 18:16 LACE Index Scoring Tool - Questions: Length of Stay (in days): 3 Acuity (Admit via E.D.?): Yes Comorbidities: Congestive Heart Failure, Chronic Pulmonary Disease E.D. Visits: 9 - Answers: Total Score: 15 Risk of Readmission: High Risk Care Management Discharge Reason for Hospitalization: CHF Discharge Plan: Pramod returned home today with no new services. He will need to return to the ED tomorrow to have his dose of Suboxone, as [facility] is closed on Sundays. CM communicated this with the pharmacy (through the CC), and the ED. CM will provide his last dose letter after his visit tomorrow. He transported via private vehicle. He will follow up with his PCP and discharge plan of care. Patient/Family Education Needs: Review discharge instructions and limitations, discussion of self care needs including ask me three.
== END 2022-07-25 15:42 | disposition home or self-care (01) | DRG 291 ==
LOC: ER 17:13 → MS 23:08
PROVIDERS: Family Medicine; Internal Medicine; Admitting Provider Internal Medicine; Emergency Provider Student in an Organized Health Care Education/Training Program; PCP Nurse Practitioner Family; Visit Provider Internal Medicine
DX: I11.0 Hypertensive heart disease with heart failure (principal); I50.33 Acute on chronic diastolic (congestive) heart failure; Z68.43 Body mass index [BMI] 50.0-59.9, adult; F19.20 Other psychoactive substance dependence, uncomplicated; R07.89 Other chest pain; J44.9 Chronic obstructive pulmonary disease, unspecified; I25.10 Atherosclerotic heart disease of native coronary artery without angina pectoris; I25.2 Old myocardial infarction; Z95.810 Presence of automatic (implantable) cardiac defibrillator; Z86.74 Personal history of sudden cardiac arrest; I48.91 Unspecified atrial fibrillation; E78.5 Hyperlipidemia, unspecified; R05.9 Cough, unspecified; K21.9 Gastro-esophageal reflux disease without esophagitis; F17.210 Nicotine dependence, cigarettes, uncomplicated; I25.5 Ischemic cardiomyopathy; F10.10 Alcohol abuse, uncomplicated; E66.01 Morbid (severe) obesity due to excess calories; Z95.5 Presence of coronary angioplasty implant and graft; Z96.651 Presence of right artificial knee joint; R91.8 Other nonspecific abnormal finding of lung field; F32.A Depression, unspecified; F41.9 Anxiety disorder, unspecified
CPT/HCPCS: 36415; 80048; 80053; 87635; 93005; 94618; 94640; 99285; J1650; 71045; 83735; 83880; 84443; 84484; 85025; 93010; 93970; 94664; 94760; 99223; 99232; 99239; J1940; J3490

== ENCOUNTER 2022-07-26 09:22 | Emergency (ER) | payer MEDICAID, SELFPAY ==
[2022-07-26 09:24] VITALS: BP 129/78; PULSE 80; RESP 18; TEMP 36.7; O2SAT 98
--- NOTE | 2022-07-26 09:29 | W.ED.GENAD ---
Discharge Plan Disposition Patient Disposition: Home Discharge Details Clinical Impression: Patient receiving medication management services from refill clinic Primary Care Provider: TIKI DOMINGUEZ ED Provider: Tyrone Blackman Home Meds and New Rx's Prescriptions: Continued buspirone 15 mg tablet 15 mg PO BID nitroglycerin 0.4 mg tablet, sublingual 0.4 mg sublingual Q5-15M PRN (Reason: chest pain) Qty: 90 3RF Rx Instructions: do not exceed 3 doses per episode torsemide 20 mg tablet 20 mg PO BID Qty: 180 3RF lorazepam 0.5 mg tablet 0.5 mg PO BID PRN metoprolol succinate 25 mg tablet extended release 24 hr 25 mg PO DAILY buprenorphine-naloxone [Suboxone] 8-2 mg Film 1 film sublingual DAILY Rx Instructions: In addition to 2mg-0.5mg film (total daily dose: 10-2.5mg SL daily) citalopram 20 mg Tablet 20 mg PO DAILY gabapentin 300 mg Capsule 300 mg PO TID Stiolto Respimat 2.5-2.5 mcg/actuation mist 2 puff inhalation DAILY Qty: 4 0RF albuterol sulfate 90 mcg/actuation aerosol powdr breath activated 2 inh inhalation Q4H PRNQty: 1 0RF isosorbide mononitrate 30 mg Tablet Extended Release 24 Hr 30 mg PO DAILY aspirin 81 mg Tablet,Delayed Release (Dr/Ec) 81 mg PO DAILY ranolazine 500 mg Tablet Extended Release 12 Hr 500 mg PO BID atorvastatin 80 mg tablet 80 mg PO DAILY Qty: 30 0RF clopidogrel [Plavix] 75 mg tablet 75 mg PO DAILY Qty: 30 0RF folic acid 1 mg tablet 2 mg PO DAILY Qty: 30 0RF hydralazine 50 mg tablet 50 mg PO TID Qty: 90 0RF losartan 25 mg tablet 25 mg PO DAILY Qty: 30 0RF pantoprazole [Protonix] 40 mg tablet,delayed release (DR/EC) 40 mg PO DAILY Qty: 30 0RF amiodarone 200 mg Tablet 200 mg PO DAILY buprenorphine-naloxone 2-0.5 mg Film 1 film sublingual DAILY Rx Instructions: In addition to 8-2mg film (total daily dose: 10-2.5mg SL daily) Discharge Instructions Additional Instructions: Please continue to follow your discharge instructions and follow-up from your inpatient admission. If you have any new or significant worsening of symptoms or concerns feel free to return the emergency department for reassessment otherwise follow-up your primary care provider. Referrals: TIKI DOMINGUEZ [Primary Care Provider] - Medical Decision Making Patient presenting to the emergency department for Suboxone dose. Patient was discharged from inpatient unit yesterday but due to clinic closure he is unable to have his Suboxone. He is here for a 10 mg dose along with a last dose letter so that he can return to the clinic tomorrow. Patient actually states that he is improving and feels a lot better. Patient has clear lung sounds normal cardiac exam and is not short of breath. Verify that patient was receiving 10 mg of Suboxone inpatient so we will order this and get patient his last dose letter. Patient states no other needs at this time and I feel he is safe to discharge home and continue previous recommended follow-up. After discussion of diagnosis and plan of care patient has no further needs, questions, or concerns and states clear understanding to return to the emergency department for any worsening symptoms. This documentation was generated using [employer] dictation system, please disregard any oddities of phrase or misspellings. HPI General Mode of arrival: ambulatory. Date/Time Provider Initiated Documentation: 07/26/22 09:26. Limitations to Documentation: no limitations. Information obtained by: patient and RN notes reviewed. History of Present Illness 51 year old M presents to the emergency department with the chief complaint of Need of methadone and last dose letter, Patient notes no other symptoms.. Related Data Home Medications Medication Instructions Recorded Confirmed amiodarone 200 mg tablet 200 mg PO DAILY 01/06/22 07/26/22 aspirin 81 mg tablet,delayed 81 mg PO DAILY 01/06/22 07/26/22 release atorvastatin 80 mg tablet 80 mg PO DAILY #30 tabs 01/06/22 07/26/22 clopidogrel 75 mg tablet (Plavix) 75 mg PO DAILY #30 tabs 01/06/22 07/26/22 folic acid 1 mg tablet 2 mg PO DAILY #30 tabs 01/06/22 07/26/22 hydralazine 50 mg tablet 50 mg PO TID #90 tabs 01/06/22 07/26/22 isosorbide mononitrate 30 mg 30 mg PO DAILY 01/06/22 07/26/22 tablet,extended release 24 hr losartan 25 mg tablet 25 mg PO DAILY #30 tabs 01/06/22 07/26/22 pantoprazole 40 mg tablet,delayed 40 mg PO DAILY #30 tabs 01/06/22 07/26/22 release (Protonix) ranolazine 500 mg tablet,extended 500 mg PO BID 01/06/22 07/26/22 release,12 hr buprenorphine 2 mg-naloxone 0.5 mg 1 film sublingual DAILY 01/26/22 07/26/22 sublingual film buspirone 15 mg tablet 15 mg PO BID 03/31/22 07/26/22 buprenorphine 8 mg-naloxone 2 mg 1 film sublingual DAILY 04/20/22 07/26/22 sublingual film (Suboxone) lorazepam 0.5 mg tablet 0.5 mg PO BID PRN 04/20/22 07/26/22 metoprolol succinate 25 mg 25 mg PO DAILY 04/20/22 07/26/22 tablet,extended release 24 hr citalopram 20 mg tablet 20 mg PO DAILY 06/14/22 07/26/22 gabapentin 300 mg capsule 300 mg PO TID 06/15/22 07/26/22 albuterol sulfate 90 mcg/actuation 2 inh inhalation Q4H PRN #1 ea 06/17/22 07/26/22 breath activated powder inhaler tiotropium 2.5 mcg-olodaterol 2.5 2 puff inhalation DAILY #4 grams 06/17/22 07/26/22 mcg/actuation mist for inhalation (Stiolto Respimat) nitroglycerin 0.4 mg sublingual 0.4 mg sublingual Q5-15M PRN chest 07/03/22 07/26/22 tablet pain #90 tabs torsemide 20 mg tablet 20 mg PO BID #180 tabs 07/03/22 07/26/22 Previous Rx's Medication Instructions Recorded atorvastatin 80 mg tablet 80 mg PO DAILY #30 tabs 01/06/22 clopidogrel 75 mg tablet (Plavix) 75 mg PO DAILY #30 tabs 01/06/22 folic acid 1 mg tablet 2 mg PO DAILY #30 tabs 01/06/22 hydralazine 50 mg tablet 50 mg PO TID #90 tabs 01/06/22 losartan 25 mg tablet 25 mg PO DAILY #30 tabs 01/06/22 pantoprazole 40 mg tablet,delayed 40 mg PO DAILY #30 tabs 01/06/22 release (Protonix) albuterol sulfate 90 mcg/actuation 2 inh inhalation Q4H PRN #1 ea 06/17/22 breath activated powder inhaler tiotropium 2.5 mcg-olodaterol 2.5 2 puff inhalation DAILY #4 grams 06/17/22 mcg/actuation mist for inhalation (Stiolto Respimat) nitroglycerin 0.4 mg sublingual 0.4 mg sublingual Q5-15M PRN chest 07/03/22 tablet pain #90 tabs torsemide 20 mg tablet 20 mg PO BID #180 tabs 07/03/22 Allergies Allergy/AdvReac Type Severity Reaction Status Date / Time hydromorphone [From Dilaudid] Allergy Verified 07/03/22 09:47 General Stated Complaint: RX Refill GLADIS: 5 Review of Systems Narrative: 6 systems reviewed and unremarkable except what is marked below. PFSH All Active Problems (Updated 07/26/22 @ 09:42 by Tyrone Blackman NP) Patient receiving medication management services from refill clinic (Acute) Diastolic heart failure (Acute) Cough (Acute) Consolidation of left lower lobe of lung (Acute) Anxiety (Acute) Cellulitis of leg, left (Acute) Angina pectoris (Chronic) GERD (gastroesophageal reflux disease) (Chronic) Depression (Chronic) Morbid obesity (Chronic) AICD (automatic cardioverter/defibrillator) present (Acute) placed at [facility] for ischemic dilated cardiomyopathy [employer] Margaret MACDONALD 01/27/21 RH HLD (hyperlipidemia) (Acute) ETOH abuse (Chronic) Drug dependence (Chronic) COPD (chronic obstructive pulmonary disease) (Chronic) Acute on chronic heart failure with reduced ejection fraction and diastolic dysfunction (Acute) Ischemic cardiomyopathy (Chronic) Afib (Chronic) Tobacco use disorder (Acute) Hx of hyperlipidemia (Acute) HTN (hypertension) (Chronic) CAD (coronary artery disease) (Chronic) Medical History Alcohol use disorder, severe, dependence [facility] 01/21 Cardiac arrest CHF (congestive heart failure) Dental infection Exertional chest pain Homelessness Medication monitoring encounter Pacemaker Pulmonary nodules Surgical History History of coronary artery stent placement History of hernia repair History of right knee joint replacement History of tonsillectomy Social History Smoking/Tobacco Use Status: Current-Occasional Tobacco Type: cigarettes Smoking risk assessment performed?: Yes Alcohol Intake: former Year quit: 2020 Details: Former heavy alcohol use. Drug use: Current Sobriety Substance use type: former substance user, marijuana and prescription drug Do you feel safe at home: Yes Do you feel safe in your relationship?: Yes Exam Const General: cooperative, no acute distress and not ill appearing Orientation: alert, awake and oriented x3 Resp Effort & Inspection: normal respiratory effort, able to speak in complete sentences and no respiratory distress Auscultation: clear to auscultation bilaterally Cardio Rate: regular rate Rhythm: regular rhythm Heart Sounds: S1 normal and S2 normal Skin General skin exam: no rashes or lesions noted Neuro General: patient alert, patient awake, patient oriented x3, moves all extremities and no focal motor deficits Sensory Exam: no sensory deficits noted Course Vital Signs Vital signs: Vital Signs Temperature 36.7 C 07/26/22 09:24 Pulse 80 07/26/22 09:24 Respiratory Rate 18 07/26/22 09:24 Blood Pressure 129/78 07/26/22 09:24 Pulse Oximetry 98 07/26/22 09:24 Temperature 36.7 C 07/26/22 09:24 Temperature Source Tympanic 07/26/22 09:24 Pulse 80 07/26/22 09:24 Respiratory Rate 18 07/26/22 09:24 Blood Pressure 129/78 07/26/22 09:24 Blood Pressure Position Sitting 07/26/22 09:24 Pulse Oximetry 98 07/26/22 09:24 Oxygen Delivery Method Room Air 07/26/22 09:24 Oxygen Flow Rate 0 07/26/22 09:24 Pain Level 0 07/26/22 09:24
[2022-07-26] MEDS: Buprenorphine/Naloxone 2 mg/0.5 mg FILM 1 EACH SL (10:14)
[2022-07-26] MEDS: Buprenorphine/Naloxone 8 mg/2 mg FILM 1 EACH SL (10:14)
== END 2022-07-26 10:16 | disposition home or self-care (01) ==
PROVIDERS: Emergency Provider Nurse Practitioner Family; PCP Nurse Practitioner Family
DX: Z79.891 Long term (current) use of opiate analgesic (principal); Z51.81 Encounter for therapeutic drug level monitoring
CPT/HCPCS: 99283; 99284

== ENCOUNTER 2022-08-19 05:28 | Emergency (ER) | payer MEDICAID, SELFPAY ==
[2022-08-19] VITALS (37 sets, daily range): BP systolic 75–129; BP diastolic 21–83; PULSE 52–98; RESP 8–27; TEMP 37.1; O2SAT 94
--- NOTE | 2022-08-19 05:15 | RT.EKG_ITS ---
APPROVED REPORT Exam: Resting ECG Reason for Exam: chest pain Patient Location: E HR:87 bpm ECG Measurements Heart Rate 87 AXIS LA 172 P 54 QRSd 94 QRS 36 QT 388 T 100 QTc 468 Conclusion Sinus rhythm...normal P axis, V-rate 60- 99 Physician: minimal elevation in v1, no stemi, old q waves, stable from prior ekg on 07/22/22
--- NOTE | 2022-08-19 05:54 | DI.CT_ITS ---
Exam(s) CT CHEST PE ABD PELVIS W EXAM: CT CHEST PE ABD PELVIS W CLINICAL HISTORY: CP, SOB, drug use. TECHNIQUE: Imaging Protocol: Axial CT angiography was performed with multi-slice acquisition and mu lti-planar and/or 3D reconstructions. CONTRAST MATERIAL: Intravenous: Omnipaque 350contrast volume:100 mL COMPARISON: CT CT CHEST PE CTA from 06/14/[address] CHEST PE CTA from 06/26/2022 FINDINGS: The examination is limited due to patient motion artifact. CHEST: Tracheobronchial tree: Patent where visualized. Pulmonary parenchyma: No consolidation or dominant measurable mass. No architectural distortion. Ther e are dependent areas of atelectasis seen in the lungs posteriorly bilaterally. No focal consolidati ng infiltrates are seen. There are low lung volumes. Pulmonary Arteries: No evidence of filling defect to suggest pulmonary emboli. Mediastinum and Lorraine: No dominant adenopathy or fluid collection. The esophagus is unremarkable. Visualized thyroid gland: Unremarkable. Pleura: No effusion or pneumothorax. Heart: The heart is not dilated. Coronary artery calcification and/or stents are present. No pericar dial effusion. Aorta: Thoracic aorta non-dilated. No evidence of dissection. Bones: Within normal limits for the patient's age. There is a fracture of the anterolateral aspect of the left 7th rib. There is some callus formation about the fracture suggesting some interval healin g. This likely is a subacute fracture or nonunion possibly. There are old healed left rib fractures present. Soft tissues: Mild gynecomastia. There is a pacer in the left chest wall. ABDOMEN: Liver: Normal density. No measurable mass. Portal, Superior Mesenteric, and Splenic Veins: Unremarkable. Gallbladder and Biliary Tract: No stones are seen. No biliary ductal dilatation. Appears to be gallbl adder sludge present. Pancreas: There is fatty replacement of the pancreas. No peripancreatic inflammatory changes are seen . Spleen: Normal. Adrenals: No masses seen. Kidneys: Normal size, contour and axis. No radiodense stones or obstructive uropathy. No masses seen. Abdominal Aorta: Abdominal portion non-dilated. Atherosclerosis is present. Bowel: No obstruction or bowel wall thickening. Appendix is unremarkable. Peritoneal Cavity: No ascites, collection or mesenteric inflammatory response. No free air. Lymph Nodes: There are enlarged external iliac and inguinal lymph nodes bilaterally. The largest lymp h node in the left is in the left inguinal region and measures 2.9 cm. There is a 3.2 cm right inguin al lymph node which is the largest. Bones: Within normal limits for the patient's age. Soft Tissues: There bilateral small fat containing inguinal hernias. There is a 5.3 x 2.3 cm fluid co llection within the medial left thigh musculature. No fluid level is seen. PELVIS: Bladder: Symmetric distention, no gross wall thickening. Reproductive Organs: There is scrotal skin thickening. Lymph Nodes: Within normal limits. Bones: Within normal limits. IMPRESSION: 1. No evidence pulmonary embolism, thoracic aortic dissection or aneurysm. 2. No acute pulmonary process. 3. Mild skin thickening of the scrotum there is also some air demonstrated in the posterior scrotal m argin. This may represent skin ulceration or emphysematous inflammation. Please correlate with physic al exam. 4. Intramuscular fluid collection in the medial left thigh musculature. Abscess cannot be excluded. H ematoma should also be considered. Please correlate with physical exam. 5. No acute intra-abdominal or pelvic abnormality. RADIATION DOSE DELIVERED: 2,823.03mGy.cm Total DLP DATA REPOSITORY: All CT scans at this facility are submitted to the National Radiology Data Registry (NRDR) Dose Index Registry (DIR) with the [employer] (ACR). RADIATION OPTIMIZATION: All CT scans at this facility use at least one of these dose optimization te chniques: automated exposure control; mA and/or kV adjustment per patient size (includes targeted exa ms where dose is matched to clinical indication); or iterative reconstruction.
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
[2022-08-19 06:05] LABS: BE (Venous) 10 mmol/L (-2-3); HCO3 (Venous) 35 mmol/L (23-28); O2 Sat (Venous) 82 %; TCO2 (Venous) 32 mmol/L (24-29); pCO2 (Venous) 58 mmHg (41-51); pH (Venous) 7.39 (7.31-7.41); pO2 (Venous) 43 mmHg
[2022-08-19 06:11] LABS: Lactate 2.1 mmol/L (0.6-1.4)
[2022-08-19 06:13] LABS: Abs Immature Grans 0.14 10^3/uL (0.0-0.06); Absolute Monocyte Count 1.59 10^3/uL (0.1-0.8); Basophils % 0.3; Eosinophils % 0.8; HCT 39.1 % (40.0-50.0); HGB 12.6 g/dL (13.5-17.5); Immature Grans % 0.7; Lymphocytes % 9.5; MCH 29.3 pg (27.0-33.0); MCHC 32.2 % (32.0-36.0); MCV 91 fL (80-95); MPV 8.9 fL (8.0-11.0); Monocytes % 7.8; Neutrophils % 80.9; Platelet Count 440 10^3/uL (130-400); RDW-SD 49.9 fL; WBC 20.36 10^3/uL (4.4-10.8)
[2022-08-19 06:17] LABS: Absolute Basophil Count 0.06 10^3/uL (0.0-0.2); Absolute Eosinophil Count 0.16 10^3/uL (0.0-0.7); Absolute Lymphocyte Count 1.93 10^3/uL (1.2-3.4); Absolute Neutrophil Count 16.47 10^3/uL (1.2-6.7); ESR 60 mm/hr (0-20)
[2022-08-19] MEDS: Albuterol/Ipratropium 3 ML UPD VIAL 6 ML UPD (06:20)
[2022-08-19] MEDS: LORazepam 2 MG/ML VIAL 1 MG IVP (06:31)
[2022-08-19 06:40] LABS: C-Reactive Protein 15.83 mg/dL (0.0-0.3)
[2022-08-19 06:42] LABS: Troponin I 642 ng/L (<or=60)
[2022-08-19 06:43] LABS: ALT 19 U/L (16-63); AST 19 U/L (15-37); Albumin 3.2 g/dL (3.4-5.0); Alkaline Phosphatase 78 U/L (46-116); Anion Gap 5.5 mmol/L (3-11); BUN 12 mg/dL (7-18); Bilirubin, Total 0.9 mg/dL (0.2-1.0); CO2 34.5 mmol/L (21.0-32.0); CREATININE 1.1 mg/dL (0.70-1.30); Calcium 8.8 mg/dL (8.5-10.1); Chloride 97 mmol/L (98-107); Estimated GFR 80.27 (mL/min/1.73m2); Glucose 176 mg/dL (74-106); NT-proBNP 3288 pg/mL (<300); Potassium 3.6 mmol/L (3.5-5.1); Sodium 137 mmol/L (136-145); Total Protein 7.9 g/dL (6.4-8.2)
[2022-08-19 06:44] LABS: PTT Activated 25.9 sec (21.5-31.9); Prothrombin Time 12.7 sec (9.3-11.0)
[2022-08-19] MEDS: PIPERACILLIN/TAZO 4.5 GM in Normal Saline 100 ML IVPB (06:44)
[2022-08-19] MEDS: CLINDAMYCIN 600 MG/50 ML BAG 100 MG IVPB (06:45)
[2022-08-19 06:48] LABS: INR 1.2 (0.9-1.1)
[2022-08-19] MEDS: Omnipaque 350 MG/ML 100 ML BTL IJ (06:56)
[2022-08-19 06:57] LABS: COVID-19 PCR Negative (Negative); Influenza A PCR Negative (Negative); Influenza B PCR Negative (Negative); RSV PCR Negative (Negative)
[2022-08-19] MEDS: Normal Saline - Diluent 50 ML VIAL IJ (07:00)
--- NOTE | 2022-08-19 07:11 | NUR.NOTE ---
BP 84/48 reported to MD Shelley. Report given to day shift RN.
[2022-08-19 07:13] LABS: Source Nasopharynx
[2022-08-19] MEDS: Normal Saline 500 ML IV (07:19)
[2022-08-19] MEDS: VANCOMYCIN/WATER (PEG) 2 GM/400 ML BAG IVPB (07:40)
--- NOTE | 2022-08-19 10:02 | DI.VRAD_ITS ---
Addendum created by Gabino Henson MD on 08/19/2022 10:03:38 AM EDT: THIS REPORT CONTAINS FINDINGS THAT MAY BE CRITICAL TO PATIENT CARE. The findings were verbally communicated via telephone conference at 10:03 AM EDT on 08/19/[address] Pineda. The findings were acknowledged and understood. Initial report created on 08/19/2022 10:01:34 AM EDT: PROCEDURE INFORMATION: Exam: CTA Chest With Contrast Exam date and time: 08/19/2022 6:53 AM Age: 51 years old Clinical indication: Abdominal pain; Localized; Other: Scrotum; On breathing; Prior surgery; Surgery date: 6+ months; Surgery type: Pacemaker; Additional info: Cp, SOB, drug use. scrotum, infection.No history of trauma or recent surgery is provided. TECHNIQUE: Imaging protocol: Computed tomographic angiography of the chest with contrast. 3D rendering (Not supervised by radiologist): MIP and/or 3D reconstructed images were created by the technologist. Radiation optimization: All CT scans at this facility use at least one of these dose optimization techniques: automated exposure control; mA and/or kV adjustment per patient size (includes targeted exams where dose is matched to clinical indication); or iterative reconstruction. Contrast material: OMNI 350; Contrast volume: 100 ml; Contrast route: INTRAVENOUS (IV); Other technique: Axial images are available with sagittal and coronal reconstruction views. Automated dose exposure control is utilized. The DLP is 2823. COMPARISON: 1. CT CHEST PE CTA 06/26/2022 8:[address] chest report of 06/10/2022. 2. CR XR PORTABLE CHEST AP 07/22/2022 7:11 PM FINDINGS: Pulmonary arteries: No pulmonary thromboembolism is appreciated. Aorta: The aortic contours are unremarkable. No aneurysmal dilatation, intimal irregularity or periaortic fluid collections are appreciated. Trachea: The central airways are patent. Lungs: There are some apical blebs present similar overall. There is linear subsegmental atelectasis versus post inflammatory scarring demonstrated.No lobar consolidation is appreciated. There is some subpleural patchy opacification anterior right upper lobe which could be seen with some inflammatory related sequela in the interval. There is some subpleural ground-glass nodularity or bronchovascular thickening similar posterior aspect left apicoposterior segment. Pleural spaces: No significant interval layering pleural effusion is appreciated as compared to the previous study. Heart: No cardiac chamber enlargement or significant pericardial effusion is appreciated. Lymph nodes: There are subcentimeter predominant short axis mediastinal and hilar lymph nodes relatively similar overall. Intraperitoneal space: The intraperitoneal space abdominal findings correlates with the dedicated CT abdomen description same day. Bones/joints: Osseous alignment is maintained.No interval displaced fracture or dislocation is appreciated. There is some flowing thoracic osteophytosis demonstrated. There is some chronic appearing rib deformities present. There is some nonunion fracture appearance without significant displacement at approximally the 7th rib level. Soft tissues: No radiopaque foreign body or subcutaneous emphysema is appreciated. Other findings: There is streak artifact from the cardiac lead hardware. There is some motion artifact present. There is some slight fissure thickening similar overall. IMPRESSION: 1. No interval pulmonary thromboembolism is appreciated. 2. There are multiple rib deformities with some chronicity overall bilaterally. One demonstrates nonunion for example left 7th rib. PROCEDURE INFORMATION: Exam: CT Abdomen And Pelvis With Contrast Exam date and time: 08/19/2022 6:53 AM Age: 51 years old Clinical indication: Abdominal pain; Localized; Other: Scrotum; On breathing; Prior surgery; Surgery date: 6+ months; Surgery type: Pacemaker; Additional info: Cp, SOB, drug use. scrotum, infection.No history of trauma or recent surgery is provided. TECHNIQUE: Imaging protocol: Computed tomography of the abdomen and pelvis with contrast. 4035image(s) are provided. Contrast material: OMNI 350; Contrast volume: 100 ml; Contrast route: INTRAVENOUS (IV); Other technique: Axial images are available with sagittal and coronal reconstruction views. Automated dose exposure control is utilized. The DLP is 2823. COMPARISON: CT CHEST PE CTA 06/26/2022 8:17 AM FINDINGS: Liver: There is some hepatic steatosis appearance overall. Gallbladder and bile ducts: There appears to be some trace gallbladder sludge. Pancreas: There is some fatty replacement of the pancreas overall. Spleen: Unremarkable. Adrenal glands: Unremarkable. Kidneys and ureters: There is homogeneous renal parenchymal enhancement with no radiopaque obstructive renal calculus or hydronephrosis appreciated. Stomach and bowel: Some aspects of the colon are undistended. This may also be peristaltic related.There is abundant stool present limiting mucosal detail evaluation. The bowel gas pattern appears nonobstructive overall. There is a small sliding-type hiatal hernia demonstrated with slight gastroesophageal fold thickening. Appendix: There is an unremarkable appearance of the appendix demonstrated. Intraperitoneal space: No significant abdominal fluid or free air is currently appreciated. There is some trace pelvic fluid present. Vasculature: No abdominal aortic aneurysmal dilatation or periaortic fluid is appreciated. Lymph nodes: There are borderline periaortic and mesenteric lymph nodes are appreciated.This can be seen with previous inflammation or adenitis sequela. There are some enlarged groin and inguinal level lymph nodes demonstrated overall bilaterally. Urinary bladder: The bladder is incompletely fluid filled for evaluation which may exagerate the wall thickness. This can also be seen with post inflammation sequela. Reproductive: There appears to be some scrotal and peritesticular fluid present with otherwise limited internal evaluation. Bones/joints: Osseous alignment is maintained.No displaced fracture or dislocation is appreciated. There is some multilevel spurring along with vacuum phenomenon of the lower lumbar spine predominantly. This contributes to some osseous neural foraminal narrowing. Soft tissues: No radiopaque foreign body or diffuse subcutaneous emphysema is appreciated. There is some slight edematous stranding of the anterior abdominal bernard left slightly more so than right. There is soft tissue swelling demonstrated about the penile base and scrotal margin. Also appears to be some scrotal margin air present at the posterior aspect. Consider if there is history of skin ulceration or laceration as this can also be seen with processes including some emphysematous inflammation. There is some nonspecific fluid density also present about the left medial thigh musculature measuring approximally 6.1 x 2 cm series 16, image 23. No air-fluid level within is currently appreciated. Other findings: The chest findings correlate with the CT chest description same day. IMPRESSION: 1. There is penile base and scrotal soft tissue swelling along with fluid overall demonstrated. There is also some air demonstrated of the posterior scrotal margin which could be seen with processes including skin ulceration as well as emphysematous inflammation including gangrenous change. There are associated abnormally enlarged groin as well as inguinal level lymph nodes. 2. There is some fluid which could represent inflammation or early abscess related change about the left medial thigh musculature. No definite tract to the skin surface is currently appreciated. Dictated and Authenticated by: Gabino Henson MD. Ordering:ELEUTERIO Wood MD
[2022-08-19 10:23] LABS: Troponin I 657 ng/L (<or=60)
[2022-08-19] MEDS: Normal Saline 1,000 ML 1000 ML IV (10:33)
--- NOTE | 2022-08-19 11:12 | ED.PROG_ITS ---
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 Patient started empiric antibiotics by prior provider started on vancomycin Zosyn and clindamycin. Was given light fluid on initial presentation given history of CHF and lower extremity edema, I have added further fluid bolus given soft blood pressures in the 90s systolic. Despite normal heart rate patient may likely have advanced tachycardia due to beta-donald use. Discussed case with team at [facility], has been accepted ED to ED for transfer for likely surgical debridement. Patient currently resting comfortably chest pain-free no respiratory symptoms. Heparin has been discontinued given likelihood of surgical intervention needed. Patient is consented for transfer. Sign Out Sign Out Data: Sign Out Comment: NSTEMI, sepsis. Pending imaging and expecting transfer to [facility] Last updated by Israel Rosa DO at 08/19/22 07:36 Discharge Plan Discharge Details Chief Complaint: Chest Pain Primary Care Provider: TIKI DOMINGUEZ ED Provider: Andriy Negro Home Meds and New Rx's Prescriptions: No Action buspirone 15 mg tablet 15 mg PO BID nitroglycerin 0.4 mg tablet, sublingual 0.4 mg sublingual Q5-15M PRN (Reason: chest pain) Qty: 90 3RF Rx Instructions: do not exceed 3 doses per episode torsemide 20 mg tablet 20 mg PO BID Qty: 180 3RF amiodarone 100 mg tablet 100 mg PO DAILY Patient Comments: 08/05/[address] More on 07/01/22, PCP office noticed change RH lorazepam 0.5 mg tablet 0.5 mg PO BID PRN metoprolol succinate 25 mg tablet extended release 24 hr 25 mg PO DAILY buprenorphine-naloxone [Suboxone] 8-2 mg Film 1 film sublingual DAILY Rx Instructions: In addition to 2mg-0.5mg film (total daily dose: 10-2.5mg SL daily) citalopram 20 mg Tablet 20 mg PO DAILY gabapentin 300 mg Capsule 300 mg PO TID Stiolto Respimat 2.5-2.5 mcg/actuation mist 2 puff inhalation DAILY Qty: 4 0RF albuterol sulfate 90 mcg/actuation aerosol powdr breath activated 2 inh inhalation Q4H PRNQty: 1 0RF isosorbide mononitrate 30 mg Tablet Extended Release 24 Hr 30 mg PO DAILY aspirin 81 mg Tablet,Delayed Release (Dr/Ec) 81 mg PO DAILY ranolazine 500 mg Tablet Extended Release 12 Hr 500 mg PO BID atorvastatin 80 mg tablet 80 mg PO DAILY Qty: 30 0RF clopidogrel [Plavix] 75 mg tablet 75 mg PO DAILY Qty: 30 0RF folic acid 1 mg tablet 2 mg PO DAILY Qty: 30 0RF hydralazine 50 mg tablet 50 mg PO TID Qty: 90 0RF losartan 25 mg tablet 25 mg PO DAILY Qty: 30 0RF pantoprazole [Protonix] 40 mg tablet,delayed release (DR/EC) 40 mg PO DAILY Qty: 30 0RF buprenorphine-naloxone 2-0.5 mg Film 1 film sublingual DAILY Rx Instructions: In addition to 8-2mg film (total daily dose: 10-2.5mg SL daily)
[2022-08-19] MEDS: LORazepam 0.5 MG TAB PO (11:28)
== END 2022-08-19 11:53 | disposition short-term general hospital (02) ==
PROVIDERS: Student in an Organized Health Care Education/Training Program; Emergency Provider Emergency Medicine; PCP Nurse Practitioner Family
DX: I21.4 Non-ST elevation (NSTEMI) myocardial infarction (principal); A41.9 Sepsis, unspecified organism; N49.3 Fournier gangrene; F11.90 Opioid use, unspecified, uncomplicated; I50.9 Heart failure, unspecified; I25.10 Atherosclerotic heart disease of native coronary artery without angina pectoris; Z95.0 Presence of cardiac pacemaker; Z95.5 Presence of coronary angioplasty implant and graft
CPT/HCPCS: 36415; 71275; 74177; 80053; 82805; 85652; 87040; 87637; 93005; 94640; 96361; 96365; 96366; 96367; 96368; 96375; 99285; 83605; 83880; 84484; 85025; 85610; 85730; 86140; 93010; J2060; J2543; J3490; J7620

== ENCOUNTER 2022-09-17 07:35 | Inpatient (IN) | payer MEDICAID, SELFPAY ==
[2022-09-17] VITALS (100 sets, daily range): BP systolic 102–149; BP diastolic 53–97; PULSE 64–168; RESP 2–26; TEMP 36.3–37.3; O2SAT 45–98
--- NOTE | 2022-09-17 07:45 | DI.RAD_ITS ---
Exam(s) XR PORTABLE CHEST AP EXAM: XR PORTABLE CHEST AP CLINICAL HISTORY: sob, cough, r/o acute disease TECHNIQUE: 2D digital imaging was performed of the chest. One image was obtained. An AP view was ob tained. COMPARISON: CR,XR XR PORTABLE CHEST AP from 07/22/[address] CHEST PE ABD PELVIS W from 08/19/2022 FINDINGS: MEDIASTINUM: Normal. HEART: Normal. There is again seen a dual lead cardiac pacer in place. PULMONARY VASCULATURE: Normal. LUNGS: Since the prior CT scan on 08/19/2022 there have developed bilateral pulmonary airspace opaciti es. PLEURAL SPACE: No pleural effusion or pneumothorax. BONE:Within normal limits for the patient's age. OTHER FINDINGS:Normal. IMPRESSION: Development of bilateral pulmonary infiltrates. The findings may represent multifocal pneumonia. Pl ease correlate clinically. Pulmonary edema cannot be entirely excluded. DATA REPOSITORY: RADIATION DOSE DELIVERED:
--- NOTE | 2022-09-17 07:45 | RT.EKG_ITS ---
APPROVED REPORT Exam: Resting ECG Reason for Exam: sob Patient Location: E HR:107 bpm ECG Measurements Heart Rate 107 AXIS MN 191 P 59 QRSd 96 QRS 45 QT 361 T 169 QTc 461 Conclusion Sinus rhythm...normal P axis, V-rate 60- 99 Paired ventricular premature complexes...sequence of 2 V complexes Probable left atrial enlargement...P >50mS, <-0.10mV V1 Anterior infarct, old...Q >40mS, abnormal ST-T, V2-V5 Repol abnrm suggests ischemia, anterolateral...ST dep, T neg, I aVL V2-V6. Sinus, p waves visible with rate variation, PVCs. Normal axis. Morphology in V2-3 appears different compared to previous. No STEMI.
[2022-09-17 08:00] LABS: Abs Immature Grans 0.04 10^3/uL (0.0-0.06); Absolute Lymphocyte Count 1.78 10^3/uL (1.2-3.4); Basophils % 0.7; Eosinophils % 5.4; HCT 46.6 % (40.0-50.0); Immature Grans % 0.3; Lymphocytes % 12.1; MCH 27.9 pg (27.0-33.0); MCV 93 fL (80-95); MPV 8.3 fL (8.0-11.0); Monocytes % 2.7; Neutrophils % 78.8; Platelet Count 619 10^3/uL (130-400); RBC 5.02 10^6/uL (4.36-5.78); RDW 15.9 % (11.8-14.1)
[2022-09-17 08:02] LABS: Absolute Eosinophil Count 0.79 10^3/uL (0.0-0.7); Absolute Neutrophil Count 11.58 10^3/uL (1.2-6.7)
--- NOTE | 2022-09-17 08:03 | ED.GENADUL_ITS ---
Discharge Plan Discharge Details Chief Complaint: SOB Primary Care Provider: Gerri Silverman ED Provider: Giovani Langley Home Meds and New Rx's Prescriptions: No Action buspirone 15 mg tablet 15 mg PO BID nitroglycerin 0.4 mg tablet, sublingual 0.4 mg sublingual Q5-15M PRN (Reason: chest pain) Qty: 90 3RF Rx Instructions: do not exceed 3 doses per episode torsemide 20 mg tablet 20 mg PO BID Qty: 180 3RF amiodarone 100 mg tablet 100 mg PO DAILY Patient Comments: 08/05/[address] More on 07/01/22, PCP office noticed change RH lorazepam 0.5 mg tablet 0.5 mg PO BID PRN metoprolol succinate 25 mg tablet extended release 24 hr 25 mg PO DAILY buprenorphine-naloxone [Suboxone] 8-2 mg Film 1 film sublingual DAILY Rx Instructions: In addition to 2mg-0.5mg film (total daily dose: 10-2.5mg SL daily) citalopram 20 mg Tablet 20 mg PO DAILY gabapentin 300 mg Capsule 300 mg PO TID Stiolto Respimat 2.5-2.5 mcg/actuation mist 2 puff inhalation DAILY Qty: 4 0RF albuterol sulfate 90 mcg/actuation aerosol powdr breath activated 2 inh inhalation Q4H PRNQty: 1 0RF isosorbide mononitrate 30 mg Tablet Extended Release 24 Hr 30 mg PO DAILY aspirin 81 mg Tablet,Delayed Release (Dr/Ec) 81 mg PO DAILY ranolazine 500 mg Tablet Extended Release 12 Hr 500 mg PO BID atorvastatin 80 mg tablet 80 mg PO DAILY Qty: 30 0RF clopidogrel [Plavix] 75 mg tablet 75 mg PO DAILY Qty: 30 0RF folic acid 1 mg tablet 2 mg PO DAILY Qty: 30 0RF hydralazine 50 mg tablet 50 mg PO TID Qty: 90 0RF losartan 25 mg tablet 25 mg PO DAILY Qty: 30 0RF pantoprazole [Protonix] 40 mg tablet,delayed release (DR/EC) 40 mg PO DAILY Qty: 30 0RF buprenorphine-naloxone 2-0.5 mg Film 1 film sublingual DAILY Rx Instructions: In addition to 8-2mg film (total daily dose: 10-2.5mg SL daily) Medical Decision Making 4047 -- 51-year-old male with history of morbid obesity, coronary artery disease with history of cardiac arrest, pacemaker, AICD, coronary stent placement, COPD, CHF, hypertension, hyperlipidemia, atrial fibrillation, chronic tobacco abuse, former alcohol abuse, anxiety, depression, GERD presents for shortness of breath this morning. Patient reports he was recently discharged from [facility] for leg surgery secondary to infection. 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 Patient appeared kolb and diaphoretic while being wheeled into room 3. He is morbidly obese. He is speaking fairly comfortably however his oxygen saturation is 46% on room air. Patient placed immediately on nonrebreather and respiratory paged. Patient placed on BiPAP with DuoNebs and oxygen saturation increased to 93%. Patient appears to be breathing more comfortably, and color improved, more pink. He has crackles and rhonchi throughout. Heart rate 120s and appears sinus. Reassuring blood pressure on monitor. He has pitting bilateral lower extremity edema which appear consistent with chronic lymphedema versus venous stasis. He denies any tearing or ripping chest pain to suggest dissection. Considering his extensive history, consider COPD, CHF, pneumonia, ACS. Will obtain screening labs, portable chest, give IV Solu-Medrol, IV Lasix. 0800 -- Case endorsed to Dr. Langley to follow-up on labs and imaging and final disposition. Medical Records Medical records reviewed: Yes I reviewed the patient's medical records. ECG Data Attestation: I personally reviewed and interpreted this ECG (s) as follows: Interpretation: Rate of 107, sinus with rate variation, PVCs, normal axis, morphology in V2 and V3 appears different compared to previous August 2022 but no acute ischemic findings. HPI General Mode of arrival: wheelchair . Date/Time Provider Initiated Documentation: 09/17/22 07:48 . Limitations to Documentation: no limitations . Information obtained by: patient . HPI Narrative: Patient is a 51-year-old male with a history of morbid obesity, COPD, CHF, coronary artery disease, NSTEMI, cardiac arrest with history of pacemaker/AICD, coronary stent placement, chronic tobacco abuse, former alcohol abuse, hypertension, hyperlipidemia, ischemic cardiomyopathy, atrial fibrillation, anxiety, depression, GERD presents for shortness of breath worse with activity this morning. Patient reports he was recently at [facility] for a leg surgery related to an infection. He states he is not currently on any antibiotics. Patient states he is not on home oxygen. Patient states he has had chest congestion but denies any sputum production. He denies any known fever. Patient states he drove himself to the ED. Related Data Home Medications Medication Instructions Recorded Confirmed aspirin 81 mg tablet,delayed 81 mg PO DAILY 01/06/22 08/19/22 release atorvastatin 80 mg tablet 80 mg PO DAILY #30 tabs 01/06/22 08/19/22 clopidogrel 75 mg tablet (Plavix) 75 mg PO DAILY #30 tabs 01/06/22 08/19/22 folic acid 1 mg tablet 2 mg PO DAILY #30 tabs 01/06/22 08/19/22 hydralazine 50 mg tablet 50 mg PO TID #90 tabs 01/06/22 08/19/22 isosorbide mononitrate 30 mg 30 mg PO DAILY 01/06/22 08/19/22 tablet,extended release 24 hr losartan 25 mg tablet 25 mg PO DAILY #30 tabs 01/06/22 08/19/22 pantoprazole 40 mg tablet,delayed 40 mg PO DAILY #30 tabs 01/06/22 08/19/22 release (Protonix) ranolazine 500 mg tablet,extended 500 mg PO BID 01/06/22 08/19/22 release,12 hr buprenorphine 2 mg-naloxone 0.5 mg 1 film sublingual DAILY 01/26/22 08/19/22 sublingual film buspirone 15 mg tablet 15 mg PO BID 03/31/22 08/19/22 buprenorphine 8 mg-naloxone 2 mg 1 film sublingual DAILY 04/20/22 08/19/22 sublingual film (Suboxone) lorazepam 0.5 mg tablet 0.5 mg PO BID PRN 04/20/22 08/19/22 metoprolol succinate 25 mg 25 mg PO DAILY 04/20/22 08/19/22 tablet,extended release 24 hr citalopram 20 mg tablet 20 mg PO DAILY 06/14/22 08/19/22 gabapentin 300 mg capsule 300 mg PO TID 06/15/22 08/19/22 albuterol sulfate 90 mcg/actuation 2 inh inhalation Q4H PRN #1 ea 06/17/22 08/19/22 breath activated powder inhaler tiotropium 2.5 mcg-olodaterol 2.5 2 puff inhalation DAILY #4 grams 06/17/22 08/19/22 mcg/actuation mist for inhalation (Stiolto Respimat) nitroglycerin 0.4 mg sublingual 0.4 mg sublingual Q5-15M PRN chest 07/03/22 08/19/22 tablet pain #90 tabs torsemide 20 mg tablet 20 mg PO BID #180 tabs 07/03/22 08/19/22 amiodarone 100 mg tablet 100 mg PO DAILY 08/05/22 08/19/22 Previous Rx's Medication Instructions Recorded atorvastatin 80 mg tablet 80 mg PO DAILY #30 tabs 01/06/22 clopidogrel 75 mg tablet (Plavix) 75 mg PO DAILY #30 tabs 01/06/22 folic acid 1 mg tablet 2 mg PO DAILY #30 tabs 01/06/22 hydralazine 50 mg tablet 50 mg PO TID #90 tabs 01/06/22 losartan 25 mg tablet 25 mg PO DAILY #30 tabs 01/06/22 pantoprazole 40 mg tablet,delayed 40 mg PO DAILY #30 tabs 01/06/22 release (Protonix) albuterol sulfate 90 mcg/actuation 2 inh inhalation Q4H PRN #1 ea 06/17/22 breath activated powder inhaler tiotropium 2.5 mcg-olodaterol 2.5 2 puff inhalation DAILY #4 grams 06/17/22 mcg/actuation mist for inhalation (Stiolto Respimat) nitroglycerin 0.4 mg sublingual 0.4 mg sublingual Q5-15M PRN chest 07/03/22 tablet pain #90 tabs torsemide 20 mg tablet 20 mg PO BID #180 tabs 07/03/22 Allergies Allergy/AdvReac Type Severity Reaction Status Date / Time hydromorphone [From Dilaudid] Allergy Verified 08/19/22 10:14 General Stated Complaint: SOB GLADIS: 2 Review of Systems All systems reviewed & are unremarkable except as noted in HPI and below Constitutional Constitutional: Reports as per HPI, Denies chills and Denies fever(s) Eyes Eyes: Denies blurry vision ENT Ears, Nose, Mouth, and Throat: Denies dizziness, Denies sore throat and Denies throat swelling Cardiovascular Cardiovascular: Denies chest pain, Reports dyspnea and Reports dyspnea on exertion Respiratory Respiratory: Reports cough, Reports dyspnea and Reports dyspnea on exertion Gastrointestinal Gastrointestinal: Denies abdominal pain, Denies diarrhea and Denies vomiting Genitourinary Genitourinary: Denies hematuria and Denies dysuria Musculoskeletal Musculoskeletal: Denies back pain and Denies numbness Integumentary/Breasts Skin/Breast: Denies lesions and Denies rash Neurologic Neurologic: Denies dizziness, Denies localized weakness and Denies numbness Allergic/Immunologic Allergic/Immunologic: Denies throat swelling PFSH All Active Problems (Updated 08/26/22 @ 00:05 by BANDAR MORROW) Brittany gangrene (Acute) Non-ST elevation MD (NSTEMI) (Acute) Diastolic heart failure (Acute) Consolidation of left lower lobe of lung (Acute) Anxiety (Acute) Cellulitis of leg, left (Acute) Angina pectoris (Chronic) GERD (gastroesophageal reflux disease) (Chronic) Depression (Chronic) Morbid obesity (Chronic) AICD (automatic cardioverter/defibrillator) present (Acute) placed at [facility] for ischemic dilated cardiomyopathy Medrosangela Robles DR 01/27/21 RH HLD (hyperlipidemia) (Acute) ETOH abuse (Chronic) Drug dependence (Chronic) COPD (chronic obstructive pulmonary disease) (Chronic) Acute on chronic heart failure with reduced ejection fraction and diastolic dysfunction (Acute) Ischemic cardiomyopathy (Chronic) Afib (Chronic) Tobacco use disorder (Acute) Hx of hyperlipidemia (Acute) HTN (hypertension) (Chronic) CAD (coronary artery disease) (Chronic) Medical History Alcohol use disorder, severe, dependence [facility] 01/21 Cardiac arrest CHF (congestive heart failure) Dental infection Exertional chest pain Homelessness Medication monitoring encounter Pacemaker Pulmonary nodules Surgical History History of coronary artery stent placement History of hernia repair History of right knee joint replacement History of tonsillectomy Social History Smoking/Tobacco Use Status: Current-Occasional Tobacco Type: cigarettes Smoking risk assessment performed?: Yes Alcohol Intake: former Year quit: 2020 Details: Former heavy alcohol use. Drug use: Current Sobriety Substance use type: former substance user, marijuana and prescription drug Do you feel safe at home: Yes Do you feel safe in your relationship?: Yes Exam Const General: cooperative and acute distress respiratory Nutritional Appearance: obese morbidly obese Orientation: alert, awake and oriented x3 HENMT Head: normal to inspection Face and sinus: normal facial exam Eyes General: appearance normal, both eyes and all related structures Neck Neck: normal visual inspection and No submandibular swelling Lymphatic: no lymphadenopathy noted Chest Chest: normal inspection of the chest and no tenderness Resp Effort & Inspection: normal respiratory effort and able to speak in complete sentences Auscultation: crackles bilaterally throughout and rhonchi upper bilaterally and lower bilaterally Cardio Rate: tachycardic Rhythm: regular rhythm GI Inspection: normal to inspection and obesity Palpation: soft, not firm, not rigid and nontender Auscultation: hypoactive bowel sounds Skin General skin exam: no rashes or lesions noted Neuro General: patient alert, patient awake and patient oriented x3 Cognition: normal cognition Speech: speech normal Motor: muscle tone normal throughout Sensory Exam: no sensory deficits noted Extrem General: edema Laterality: bilateral (red/purple discoloration, indurated, pitting 1+) Psych Appearance: grossly normal Mental Status: mental status grossly normal Speech and Movement: speech and movement normal Affect: normal affect Course Vital Signs Vital signs: Vital Signs Pulse 121 H 09/17/22 07:40 Pulse Oximetry 45 L 09/17/22 07:40 Pulse 102 H 09/17/22 07:51 Respiratory Rate 22 09/17/22 07:51 Respiratory Effort Short of Breath, Accessory Muscle Use 09/17/22 07:59 Respiratory Pattern Normal 09/17/22 07:48 Pulse Oximetry 93 09/17/22 07:51 Oxygen Delivery Method Room Air 09/17/22 07:40 Oxygen Flow Rate 0 09/17/22 07:40 Fraction of Inspired Oxygen (FIO2) 55 09/17/22 07:51 Lab/Test Results Lab/Test Results: Laboratory Tests Range/Units 09/17/22 07:53 WBC (4.4-10.8) 10^3/uL 14.70 H RBC (4.36-5.78) 10^6/uL 5.02 Hgb (13.5-17.5) g/dL 14.0 Hct (40.0-50.0) % 46.6 MCV (80-95) fL 93 MCH (27.0-33.0) pg 27.9 MCHC (32.0-36.0) % 30.0 L RDW (11.8-14.1) % 15.9 H Plt Count (130-400) 10^3/uL 619 H MPV (8.0-11.0) fL 8.3 Immature Gran % 0.3 Neutrophils % 78.8 Lymphocytes % 12.1 Monocytes % 2.7 Eosinophils % 5.4 Basophils % 0.7 Nucleated RBC % (0.0-0.3) % 0.0 Absolute Neutrophils (1.2-6.7) 10^3/uL 11.58 H Absolute Lymphocytes (1.2-3.4) 10^3/uL 1.78 Absolute Monocytes (0.1-0.8) 10^3/uL 0.40 Absolute Eosinophils (0.0-0.7) 10^3/uL 0.79 H Absolute Basophils (0.0-0.2) 10^3/uL 0.10 Critical Care Time Critical Care Time Critical Care Time: Yes Total Critical Care Time: 30 Attestation: I spent 30 minutes of critical care time with this patient. This does not include time spent on separately reported billable procedures. Sign Out Sign Out Data: Sign Out Comment: Morbidly obese male with history of AICD, COPD and CHF here for shortness of breath since this morning. Oxygen saturation 46% on room air on arrival. Reportedly discharged from [facility] recently for leg surgery status post infection. Patient now doing better after DuoNebs and on BiPAP. Follow-up on labs and imaging and final disposition. Last updated by Lisa Nieto DO at 09/17/22 08:10
[2022-09-17 08:07] LABS: Lactate 3.3 mmol/L (0.6-1.4)
[2022-09-17] MEDS: LORazepam 2 MG/ML VIAL 1 MG IVP (08:08)
[2022-09-17] MEDS: Furosemide 100 MG/10 ML VIAL 80 MG IVP ×2 (08:08→11:29)
--- NOTE | 2022-09-17 08:15 | DI.CT_ITS ---
Exam(s) CT CHEST PE ABD PELVIS W EXAM: CT CHEST PE ABD PELVIS W CLINICAL HISTORY: hypoxia, recent cuba's gangrene. TECHNIQUE: Imaging Protocol: Axial CT angiography was performed with multi-slice acquisition and mu lti-planar and/or 3D reconstructions. CONTRAST MATERIAL: Intravenous: Omnipaque 350contrast volume:125 mL COMPARISON: CT CT CHEST PE CTA from 02/22/[address] CHEST PE CTA from 06/14/[address] CHEST PE ABD PELVIS W from 08/19/2022 FINDINGS: The examination is limited due to patient motion artifact. CHEST: Tracheobronchial tree: Patent where visualized. Pulmonary parenchyma: Multifocal bilateral airspace opacities are present consistent with multifocal pneumonia. No architectural distortion. Pulmonary Arteries: No evidence of filling defect to suggest pulmonary emboli. Mediastinum and Lorraine: There are mildly enlarged lymph nodes in the mediastinum and hilum likely react jenni. The esophagus is unremarkable. Visualized thyroid gland: Unremarkable. Pleura: There is a small left pleural effusion. No pneumothorax or right pleural effusion. Heart: The heart is not dilated. Coronary artery calcification and/or stents are present. No pericar dial effusion. Aorta: Thoracic aorta non-dilated. No evidence of dissection. Bones: Within normal limits for the patient's age. There is again seen a healing left 7th rib fractur e. Soft tissues: Unremarkable. Tubes, Catheters, and Lines: There is a cardiac pacer seen. ABDOMEN: Liver: Normal density. No measurable mass. Portal, Superior Mesenteric, and Splenic Veins: Unremarkable. Gallbladder and Biliary Tract: No radiodense calculus or dilation. Pancreas: There is unchanged fatty atrophy the head and body of the pancreas. Spleen: Normal. Adrenals: No masses seen. Kidneys: Normal size, contour and axis. No radiodense stones or obstructive uropathy. No masses seen. Abdominal Aorta: Abdominal portion non-dilated. Mild atherosclerosis. Bowel: No obstruction or bowel wall thickening. Appendix is unremarkable. Peritoneal Cavity: No ascites, collection or mesenteric inflammatory response. No free air. Lymph Nodes: Within normal limits. Bones: Within normal limits for the patient's age. Soft Tissues: Unremarkable. PELVIS: Bladder: Symmetric distention, no gross wall thickening. Reproductive Organs: Unremarkable as visualized. There is still mild edema seen in the scrotal soft t issues. No focal fluid collection is seen. There is a persistent fluid collection in the soft tissu es in the medial left thigh musculature. It measures 4.2 x 1.6 cm. This compares to a 5.3 x 2.3 cm. Lymph Nodes: Within normal limits. Bones: Within normal limits. IMPRESSION: 1. No evidence pulmonary embolism, thoracic aortic dissection or aneurysm. 2. Bilateral multifocal pneumonia. 3. Interval decrease in size of the fluid collection in the medial left thigh musculature. 4. No acute abdominal or pelvic process. 5. Findings were discussed with Dr. Langley at 9:25 a.m. on 09/17/2022. RADIATION DOSE DELIVERED: Total DLP DATA REPOSITORY: All CT scans at this facility are submitted to the National Radiology Data Registry (NRDR) Dose Index Registry (DIR) with the [employer] (ACR). RADIATION OPTIMIZATION: All CT scans at this facility use at least one of these dose optimization te chniques: automated exposure control; mA and/or kV adjustment per patient size (includes targeted exa ms where dose is matched to clinical indication); or iterative reconstruction.
[2022-09-17] MEDS: methylPREDNISolone SUCC 125 MG VIAL IVP (08:20)
[2022-09-17 08:29] LABS: ALT 25 U/L (16-63); AST 20 U/L (15-37); Albumin 3.3 g/dL (3.4-5.0); Alkaline Phosphatase 120 U/L (46-116); Anion Gap 3.7 mmol/L (3-11); BUN 9 mg/dL (7-18); Bilirubin, Total 0.4 mg/dL (0.2-1.0); CO2 38.3 mmol/L (21.0-32.0); CREATININE 1.1 mg/dL (0.70-1.30); Calcium 9.2 mg/dL (8.5-10.1); Chloride 95 mmol/L (98-107); Estimated GFR 80.27 (mL/min/1.73m2); Glucose 189 mg/dL (74-106); Magnesium 1.8 mg/dL (1.8-2.4); NT-proBNP 1439 pg/mL (<300); Potassium 3.3 mmol/L (3.5-5.1); Sodium 137 mmol/L (136-145); Troponin I < 50 ng/L (<or=60)
[2022-09-17 08:49] LABS: BE 11 mmol/L (-2-3); HCO3 38 mmol/L (22-26); pH 7.27 (7.35-7.45); pO2 73 mmHg (80-105); sO2 94 % (95-98); tCO2 35 mmol/L (23-27)
[2022-09-17 08:51] LABS: FIO2 55 %; Site Left Radial
[2022-09-17 08:53] LABS: pCO2 83 mmHg (35-45)
[2022-09-17] MEDS: Normal Saline - Diluent 50 ML VIAL IJ (08:57)
[2022-09-17 09:01] LABS: Procalcitonin < 0.1 ng/mL
[2022-09-17] MEDS: Omnipaque 350 MG/ML 500 ML BTL-Imaging package IJ (09:05)
--- NOTE | 2022-09-17 10:07 | ED.PROG_ITS ---
Date of service: 09/17/22 Time of Service: 10:08 Medical Decision Making pt signed out to me pending lab work, ct and reassessment. He is feeling better on the bipap, speaking in 3-4 word sentences, has diminished breath sounds at the bases bilaterally. He is noted to be hypercarbic on abg and on ct has no acute findings in the ct abd/pelvis, does have smaller fluid collection in the left medial thigh on ct today then [place] [facility] [place] but does have multifocal bilateral pneumonia, given recent hospital admission and severity of illness on presentation vanco and zosyn ordered. Discussed case with general surgery given continued left medial thigh fluid collection though is smaller in size, spoke with Dr. Yusuf who advised likely not the cause of his current illness but would consult and possibly do bedside u/s to evaluate for possible drainage. Will discuss with hospitalist about admission hospitalist accepts for admission, pt doing well on bipap. after patient was sent to the icu his second troponin came back elevated, he denies chest pain when I last saw him in the ED, hospitalist paged to inform of lab abnormality, suspect demand ischemic in setting of sepsis. Imaging Data Radiologic Study: Attestation: I personally reviewed and interpreted this imaging study as follows: Imaging: CT Scan Radiologist's impression: multifocal pneumonia Lab Data Lab results reviewed: Yes I reviewed the patient's lab results. Sign Out Sign Out Data: Sign Out Comment: Morbidly obese male with history of AICD, COPD and CHF here for shortness of breath since this morning. Oxygen saturation 46% on room air on arrival. Reportedly discharged from [facility] recently for leg surgery status post infection. Patient now doing better after DuoNebs and on BiPAP. Follow-up on labs and imaging and final disposition. Last updated by Lisa Nieto DO at 09/17/22 08:10 Discharge Plan Disposition Patient Disposition: Admit to [facility] Condition: Serious Discharge Details Chief Complaint: SOB Clinical Impression: Acute respiratory failure with hypoxia, Multifocal pneumonia Admit Date/Time: 09/17/22 10:56 Admit Provider: Bola Coombs Attending Provider: Bola Coombs Primary Care Provider: Gerri Silverman ED Provider: Giovani Langley
[2022-09-17 10:25] LABS: BE 12 mmol/L (-2-3); HCO3 38 mmol/L (22-26); pH 7.27 (7.35-7.45); pO2 68 mmHg (80-105); sO2 93 % (95-98); tCO2 36 mmol/L (23-27)
[2022-09-17 10:27] LABS: pCO2 83 mmHg (35-45)
[2022-09-17 10:29] LABS: Site Left Radial
[2022-09-17] MEDS: Albuterol/Ipratropium 3 ML UPD VIAL UPD ×2 (10:30→13:42)
--- NOTE | 2022-09-17 11:25 | PUCC_ITS ---
General Date of Service Date of service: 09/17/22 Time of Service: 11:25 Reason for Admission to ICU: Hypoxic and Hypercapnic respiratory failure Assessment and Plan Assessment and plan (1) Cellulitis of leg, left: Status: Acute (2) Respiratory failure with hypoxia and hypercapnia: Status: Acute (3) CHF exacerbation: Status: Acute (4) COPD (chronic obstructive pulmonary disease): Status: Chronic (5) Leukocytosis: Status: Acute (6) Thrombocytosis: Status: Acute (7) Lactic acidosis: Status: Acute (8) Hypokalemia: Status: Acute (9) Non-ST elevation [place] (NSTEMI): Status: Acute (10) CAD (coronary artery disease): Status: Chronic (11) Morbid obesity: Status: Chronic (12) AICD (automatic cardioverter/defibrillator) present: Status: Acute Assessment and plan: This is a 51 yo man with ischemic CHF s/p AICD, COPD and a recent [facility] hospitalization for cellulitis. Surgery has been consulted to assess this infection (although by imaging is is smaller). Clinically, I beleive he is in heart failure. He responded well to diuresis and I was able to decrease his BiPAP settings from 22/10, 50% to 16/10, 40% with sats maintaining over 90%. His chest CT is likely pulmonary edema (particularly given the clinical presentation), however cannot rule out infection. He had a recent MRSA screen which was negative, so Zosyn or cefepime should be sufficient (recent hospitalization). I do recommend repeat CXR tomorrow morning to assess for radiologic improvement of pulmonary edema. I agree with a repeat echo. I do recommend aggressive diuresis (with bid electrolytes). He has a history of COPD, although I do not feel strongly that he is in exacerbation of this. We can give him prednisone 40mg daily for 5 days for possible pneumonia. His bicarb is chronically elevated, indicating a significant degree of chronic hypercapnia (likely combo of OHS and COPD). I would keep him on BiPAP overnight to facilitate diuresis and attempt to wean off in the morning. A repeat VBG in the am would be helpful. He has troponin elevation, that could easily be ischemic or demand in nature (given his history). I agree with trending troponins and recommend repeat EKG at time of troponin jump. (13) Somnolence: Status: Acute Recommendations Pulmonary: Acute on Chronic Hypoxic and Hypercapnic respiratory failure - CHF exacerbation, OHS, COPD - agree with BiPAP, settings weaned to 16/10 at 40% s/p diuresius - O2 sat goal >90% - recommend diuresis as below COPD - I do not feel strongly that he is in exacerbation - Duonebs QID - continue home Stiolto when able - albuterol HFA prn Cardiac: CHF Exacerbaiton - likely has 30lbs+ excess fluid - recommend diuresis - 2L negative within 24 hours - electrolytes bid during aggressive diuresis - would hold blood pressure lowering agents currently, with reassessment tomorrow - has AICD NSTEMI - unclear Type 1 versus Type 2 versus combination - trend troponins, EKG prn and with troponin bump Renal: Lactic acidosis - repeat lactate, if decreasing no need to trend Hypokalemia - goal 4.0 I&O: Intake & Output 09/14/22 09/15/22 09/16/22 09/17/22 23:59 23:59 23:59 23:59 Output Total 1100 / 1100 Balance -1100 / -1100 Weight 154.221 kg Daily Fluid Goal:: negative 2 L in 24 hours GI Nutrition: NPO for now - BiPAP Infectious Disease: Possible HAP - negative MRSA nares 06/2022 - Cefepime for 5 days - prednisone 40mg daily for 5 days - sputum culture if able - blood cultures pending - recommend CXR tomorrow Cellulitis - blood cultures pending - on cefepime - surgery has been consulted Hematologic: Leukocytosis - reactive versus infection - continue to monitor Thrombocytosis - reactive Neurologic: Somnolence - due to hypoxia and hypercapnia - BiPAP and diuresis - continue to assess Endocrine: No acute concerns Lines: PIV Puente Prophylaxis: Lovenox Code Status: Full Subjective Critical and life-threatening events over the past 24 hours: This is a 51 yo man with a significant cardiac history including CAD (JULIETH, non surgical candidate), CHF with AICD and COPD who is being admitted to the ICU for hypoxic and hypercapnic respiratory failure. In the ED he has been given Lasix (with excellent response) and placed on BiPAP. He recently was admitted at [facility] for a skin infection. He had a C/A/P CT in the ED which found bilateral multifocal airspace opacities with mildly enlarged mediastinal lymph nodes. It was also significant for a persistent fluid collection in the soft tissues in the medial left thigh musculature (4.2x1.6cm - which is smaller than prior). On my evaluation of the chest CT: the infiltrates are alveolar 'fluffy' infiltrates with a vascular distribution that would be consistent with volume overload. Certainly infection is on the differential as well. He was unable to participate in interview given sleepiness, however he was arousable. Exam Narrative Exam Narrative: Gen: NAD, normal respiratory effort, obese HENT: PERRL Chest: No respiratory distress, on BiPAP. Bilateral crackles present. Heart: regular rate and rhythym, no murmurs, rubs or gallops Abdomen: Non-distended, soft, non tender Extremities: No clubbing, 3++ edema up through abdomen. Left upper inner thigh erythematous region Neuro: AAOx1, sleepy Psych: unable to assess Most Recent VS/Results Last Vital Signs Pulse 83 09/17/22 10:30 Resp 18 09/17/22 10:30 Pulse Ox 93 09/17/22 10:30 Laboratory Results - last 24 hr 09/17/22 09/17/22 09/17/22 07:53 07:53 07:53 WBC 14.70 H RBC 5.02 Hgb 14.0 Hct 46.6 MCV 93 MCH 27.9 MCHC 30.0 L RDW 15.9 H Plt Count 619 H MPV 8.3 Immature Gran % 0.3 Neutrophils % 78.8 Lymphocytes % 12.1 Monocytes % 2.7 Eosinophils % 5.4 Basophils % 0.7 Nucleated RBC % 0.0 Absolute Neutrophils 11.58 H Absolute Lymphocytes 1.78 Absolute Monocytes 0.40 Absolute Eosinophils 0.79 H Absolute Basophils 0.10 ABG Sample Site ABG pH ABG pCO2 ABG pO2 ABG HCO3 ABG Total CO2 ABG O2 Saturation ABG Base Excess VBG Lactate 3.3 H* FiO2 Sodium 137 Potassium 3.3 L Chloride 95 L Carbon Dioxide 38.3 H Anion Gap 3.7 BUN 9 Creatinine 1.1 Est GFR (CKD-EPI 2020) 80.27 Glucose 189 H Calcium 9.2 Magnesium 1.8 Total Bilirubin 0.4 AST 20 ALT 25 Alkaline Phosphatase 120 H Troponin I < 50 NT-Pro-B Natriuret Pep 1439 H Total Protein 9.0 H Albumin 3.3 L Procalcitonin < 0.1 09/17/22 09/17/22 08:46 10:00 WBC RBC Hgb Hct MCV MCH MCHC RDW Plt Count MPV Immature Gran % Neutrophils % Lymphocytes % Monocytes % Eosinophils % Basophils % Nucleated RBC % Absolute Neutrophils Absolute Lymphocytes Absolute Monocytes Absolute Eosinophils Absolute Basophils ABG Sample Site Left Radial Left Radial ABG pH 7.27 L 7.27 L ABG pCO2 83 H* 83 H* ABG pO2 73 L 68 L ABG HCO3 38 H 38 H ABG Total CO2 35 H 36 H ABG O2 Saturation 94 L 93 L ABG Base Excess 11 H 12 H VBG Lactate FiO2 55 Sodium Potassium Chloride Carbon Dioxide Anion Gap BUN Creatinine Est GFR (CKD-EPI 2020) Glucose Calcium Magnesium Total Bilirubin AST ALT Alkaline Phosphatase Troponin I NT-Pro-B Natriuret Pep Total Protein Albumin Procalcitonin Review of Systems Unobtainable due to mental status Time spent with patient Time spent in Critical Care: 60 Time spent in Critical care included: Chart review, Documenting critically ill care, Time at immediate bedside and Discussing critically ill care with other medical staff Multi-Disciplinary Checklist Lines/Tubes CENTRAL LINE: no ARTERIAL LINE: no PUENTE: yes, Puente Day#: 0 ENDOTRACHEAL TUBE: no ICU Maintenance GLUCOSE 140-180mg/dL: yes NUTRITION AT GOAL: no, Reason/Intervention: NPO while on BiPAP PRESSURE ULCER: yes, Left thigh and sacral cellulitis/infection, POA RESTRAINTS: no ANTIBIOTICS(if yes, consider Stewardship): Yes Social Issues FAMILY UPDATED: no, Reason/Intervention: deferred to hospitalist team PT/OT: no, Reason/Intervention: not currently appropriate GOALS/DISPOSITION/ROOF DESIGNER: yes CODE STATUS: Full Prophylaxis DVT PROPHYLAXIS: yes GI PROPHYLAXIS: no
[2022-09-17] MEDS: Albuterol/Ipratropium 3 ML UPD VIAL ×2 (11:28→11:29)
[2022-09-17] MEDS: VANCOMYCIN/WATER (PEG) 2 GM/400 ML BAG IV (11:28)
[2022-09-17] MEDS: Furosemide 40 MG/4 ML VIAL (11:28)
[2022-09-17] MEDS: PIPERACILLIN/TAZO 4.5 GM in Normal Saline 100 ML IVPB (11:29)
[2022-09-17 11:30] LABS: Source Nasal/Nares
--- NOTE | 2022-09-17 11:57 | W.SURGCON ---
Date of service: 09/17/22 Time of Service: 11:58 Assessment and Plan Assessment and plan (1) Left thigh pain: Status: Acute Assessment and plan: The CAT scan shows a fluid collection and what appears to be the area of the abductor kale muscle, just deep to the overlying gracilis muscle. It looks like he has some changes in the area back on the CAT scan performed in June, and there is certainly present on the CAT scan performed on August 19. I agree that the collection seems smaller on this more recent CAT scan, and there really is not much evidence of it on superficial physical exam. I think right now the most important thing is to treat his pneumonia and/or heart failure to improve his pulmonary mechanics. Once he is more comfortable, we can try to get some more detailed history and perhaps a better physical exam to help localize the area. I did attempt a bedside ultrasound to see if I could find the collection, but given his body habitus it is nearly impossible for me to see. Draining this area would require a big incision, with a fair amount of dissection into the deep muscle planes, which I do not think would add much benefit at this point. Percutaneous drainage would also be an option, but he would need to go down to [facility] to have it accessed with the assistance of some other imaging modality. We can follow along with exams to see how it evolves over the next few days. History of Present Illness History of Present Illness Chief Complaint: shortness of breath Narrative: Pramod is a 51-year-old male who comes to the emergency department with a chief complaint of difficulty breathing. He reports a subjective sense of dyspnea on exertion, that has been getting worse through the morning time. He is now short of breath with any activity at all. On initial evaluation in the emergency department, he had a pulse oximetry of 40s to 50s on room air. This improved with the addition of a nonrebreather. He was treated for acute hypoxic respiratory failure, with improvement of his dyspnea and pulse oximetry. Significant findings from that work-up include bilateral multifocal pneumonia, as well as a fluid collection in the medial aspect of the left thigh. On further review, he was recently hospitalized at [facility] with some type of cellulitis or soft tissue infection. It looks like he underwent some kind of surgical debridement of the scrotum and perineum. Other records are not available to me at this point. I was asked to see him for the fluid collection in the left thigh. By the time I saw the patient, he had been moved to the intensive care unit. He is being treated with BiPAP therapy. He tells me he has pain in both legs. The right and left side are about equal. Pain radiates from his hips down through his feet. He is dependent upon position. He is not able to fully communicate the history of the perineal incision and drainage. Review of Systems Constitutional Constitutional: Denies chills, Reports difficulty sleeping and Reports snoring Eyes Eyes: Reports system reviewed and no additional complaints, except as documented ENT Ears, Nose, Mouth, and Throat: Reports system reviewed and no additional complaints, except as documented Cardiovascular Cardiovascular: Denies chest pain, Reports claudication, Reports dyspnea and Reports dyspnea on exertion Respiratory Respiratory: Reports chest congestion, Reports cough, Reports dyspnea, Reports dyspnea on exertion and Reports snoring Gastrointestinal Gastrointestinal: Denies abdominal pain, Denies nausea and Denies vomiting Genitourinary Genitourinary: Denies dysuria and Denies scrotal swelling Musculoskeletal Musculoskeletal: Reports abnormal gait, Reports back pain and Reports myalgias Neurologic Neurologic: Reports abnormal gait Hematologic/Lymphatic Hematologic/Lymphatic: Denies easy bleeding and Denies easy bruising PFSH All Active Problems (Updated 09/17/22 @ 19:19 by Zenon Yusuf MD) Left thigh pain (Acute) Acute respiratory failure with hypoxia (Acute) Multifocal pneumonia (Acute) Somnolence (Acute) Hypokalemia (Acute) Lactic acidosis (Acute) Thrombocytosis (Acute) Leukocytosis (Acute) CHF exacerbation (Acute) Respiratory failure with hypoxia and hypercapnia (Acute) Brittany gangrene (Acute) Non-ST elevation [place] (NSTEMI) (Acute) Diastolic heart failure (Acute) Consolidation of left lower lobe of lung (Acute) Anxiety (Acute) Cellulitis of leg, left (Acute) Angina pectoris (Chronic) GERD (gastroesophageal reflux disease) (Chronic) Depression (Chronic) Morbid obesity (Chronic) AICD (automatic cardioverter/defibrillator) present (Acute) placed at [facility] for ischemic dilated cardiomyopathy Sruthi Robles DR 01/27/21 RH HLD (hyperlipidemia) (Acute) ETOH abuse (Chronic) Drug dependence (Chronic) COPD (chronic obstructive pulmonary disease) (Chronic) Acute on chronic heart failure with reduced ejection fraction and diastolic dysfunction (Acute) Ischemic cardiomyopathy (Chronic) Afib (Chronic) Tobacco use disorder (Acute) Hx of hyperlipidemia (Acute) HTN (hypertension) (Chronic) CAD (coronary artery disease) (Chronic) Medical History Alcohol use disorder, severe, dependence [facility] 01/21 Cardiac arrest CHF (congestive heart failure) Dental infection Exertional chest pain Homelessness Medication monitoring encounter Pacemaker Pulmonary nodules Surgical History History of coronary artery stent placement History of hernia repair History of right knee joint replacement History of tonsillectomy Social History Smoking/Tobacco Use Status: Current-Occasional Tobacco Type: cigarettes Smoking risk assessment performed?: Yes Alcohol Intake: former Year quit: 2020 Details: Former heavy alcohol use. Drug use: Current Sobriety Substance use type: former substance user, marijuana and prescription drug Do you feel safe at home: Yes Do you feel safe in your relationship?: Yes Exam Other: He has some mild erythema of the posterior portion of the scrotum down onto the perineal body. Is not tender. There is no fluctuance. The incision is clean and there is no obvious infection. He does have some absorbable sutures along the midline raphae Extrem General: full ROM, edema (Bilateral lower extremities) and pedal edema Right lower extremity: edema Left lower extremity: edema Other: There is no fluctuance or erythema over the left thigh. He does have a birthmark on the left anterior thigh. Results Last Vital Signs Pulse 83 09/17/22 10:30 Resp 18 09/17/22 10:30 Pulse Ox 93 09/17/22 10:30 Labs 09/17/22 07:53 09/17/22 18:03 Labs: Laboratory Results - last 24 hr 09/17/22 09/17/22 09/17/22 07:53 07:53 07:53 WBC 14.70 H RBC 5.02 Hgb 14.0 Hct 46.6 MCV 93 MCH 27.9 MCHC 30.0 L RDW 15.9 H Plt Count 619 H MPV 8.3 Immature Gran % 0.3 Neutrophils % 78.8 Lymphocytes % 12.1 Monocytes % 2.7 Eosinophils % 5.4 Basophils % 0.7 Nucleated RBC % 0.0 Absolute Neutrophils 11.58 H Absolute Lymphocytes 1.78 Absolute Monocytes 0.40 Absolute Eosinophils 0.79 H Absolute Basophils 0.10 ABG Sample Site ABG pH ABG pCO2 ABG pO2 ABG HCO3 ABG Total CO2 ABG O2 Saturation ABG Base Excess VBG Lactate 3.3 H* FiO2 Sodium 137 Potassium 3.3 L Chloride 95 L Carbon Dioxide 38.3 H Anion Gap 3.7 BUN 9 Creatinine 1.1 Est GFR (CKD-EPI 2020) 80.27 Glucose 189 H Calcium 9.2 Magnesium 1.8 Total Bilirubin 0.4 AST 20 ALT 25 Alkaline Phosphatase 120 H Troponin I < 50 NT-Pro-B Natriuret Pep 1439 H Total Protein 9.0 H Albumin 3.3 L Procalcitonin < 0.1 COVID-19 Source 09/17/22 09/17/22 09/17/22 08:46 10:00 11:25 WBC RBC Hgb Hct MCV MCH MCHC RDW Plt Count MPV Immature Gran % Neutrophils % Lymphocytes % Monocytes % Eosinophils % Basophils % Nucleated RBC % Absolute Neutrophils Absolute Lymphocytes Absolute Monocytes Absolute Eosinophils Absolute Basophils ABG Sample Site Left Radial Left Radial ABG pH 7.27 L 7.27 L ABG pCO2 83 H* 83 H* ABG pO2 73 L 68 L ABG HCO3 38 H 38 H ABG Total CO2 35 H 36 H ABG O2 Saturation 94 L 93 L ABG Base Excess 11 H 12 H VBG Lactate FiO2 55 Sodium Potassium Chloride Carbon Dioxide Anion Gap BUN Creatinine Est GFR (CKD-EPI 2020) Glucose Calcium Magnesium Total Bilirubin AST ALT Alkaline Phosphatase Troponin I NT-Pro-B Natriuret Pep Total Protein Albumin Procalcitonin COVID-19 Source Nasal/Nares Imaging Abdomen CT scan report/results: report reviewed and image reviewed CT scan - chest: report reviewed and image reviewed CT scan - pelvis: report reviewed and image reviewed
[2022-09-17 12:14] LABS: COVID-19 PCR Negative (Negative)
--- NOTE | 2022-09-17 12:24 | HPE_ITS ---
Date of service: 09/17/22 Time of Service: 12:24 Assessment and Plan Assessment and plan (1) Acute on chronic heart failure with reduced ejection fraction and diastolic dysfunction: Status: Acute Assessment and plan: although most recent echo demonstrates his LVEF to be preserved at 60 to 65%, historically he has HFrEF w/ prior LVEF 40 TO 45% and hx of VT arrest requiring AICD and 7 prior drug elution stents. Patient now is decompensated and in acute CHF exacerbation w/ elevated troponin. Unclear whether this is primary ACS vs secondary stress induced ischemic troponin leak from his CHF. We will heparinize him continue ASA and Plavix, begin Ntg drip and lasix drip, support him w/ BIPAP, monitor urine output and electrolytes; repeat his CXR in the morning. I will request formal echocardiogram in the morning. I did put in an order for echo but d/t time constraints this did not get done today. Critical care time spent interviewing and examining the patient, reviewing studies, discussing case with patient's nurse and consulting physicians was 60 minutes (2) Respiratory failure with hypoxia and hypercapnia: Status: Acute Assessment and plan: He initially was billed as a multifocal pneumonia but it is now more clear that the primary process is CHF. Nevertheless, he recently was hospitalized for cellulitis of his groin and has leukocytosis (may be reactive to his NSTEMI and CHF), I laina continue w/ cefepime pending his blood cultures (3) Non-ST elevation [place] (NSTEMI): Status: Acute Assessment and plan: as above. 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 He was discharged last Friday 09/08. He presents to the ED this morning w/ acute dyspnea and bilateral leg edema, orthopnea and PND that began 2 to 3 days ago. He has had intermitted chest tightness that he describes as like a pulled muscle in his chest. His comorbidites include CAD w/ prior stents, in hospital cardiac arrest w/ placement of AICD (@ [facility] [place]), chronic diastolic CHF, ischemic cardiomyopathy, afib on amiodarone (but not anticoagulated), HTN, HLD. Patient denies use of home oxygen. he has had referral to Dr. Hoffman to be evaluated for LARA and get set up on home CPAP, however, has failed to follow up in the office. He denies any symptoms of sputum production, cough, fever, rigors. Evaluation in the ED included CXR and CT of chest/abdomen and pelvis. Results are as follows: CXR: Development of bilateral pulmonary infiltrates.? The findings may represent multifocal pneumonia.? Please correlate clinically.? Pulmonary edema cannot be entirely excluded.? EXAM: ? CT CHEST PE ABD ? PELVIS W: IMPRESSION: 1. No evidence pulmonary embolism, thoracic aortic dissection or aneurysm. 2. Bilateral multifocal pneumonia.? 3. Interval decrease in size of the fluid collection in the medial left thigh musculature. 4. No acute abdominal or pelvic process. 5. Findings were discussed with Dr. Langley at 9:25 a.m. on 09/17/2022. Patient was given lasix 80 mg IVP w/ good urine output of 2400 mL, he was also given mutlitple DuoNeb treatments in the ED and started on Zosyn and Vancomycin empirically for multifocal pneumonia. Labs were pertinent for WBC 14,000, normal Hb 14 GM, pro-BNP 1400, initial troponin I <50 but repeat levels of 756 and 1027. K of 3.3, normal BUN and creatinine of 9 and 1.1. chronically elevated HCO3 of 38. normal procalcitonin of <0.1, Elevated lactated of 3.3 and ABG consistent w/ acute on chronic respiratory acidosis w/ pH of 7.27 and pCO2 of 83. Patient was placed on BIPAP. After initial diuresis his BIPAP was weaned from 222/10 cm and 50% FIO2 to 40% FIO2 and 16/8. Patient is now admitted to ICU for treatment of acute on chronic CHF, NSTEMI. He will be placed on heparin drip and NTG drip and continued on his ASA and plavix, placed on lasix drip (goal of urine output 100 mL/hr), supported on BIPAP. He will receive empiric cefepime but we will not continue vancomycin. Monitor electrolytes, troponin; get formal repeat echocardiogram (last one done was 04/20/22 and was difficult and had to have echo contrast. Lvef 60 to 65%, mild concentric LVH, RV was not well visualized. Review of Systems All systems reviewed & are unremarkable except as noted in HPI and below PFSH All Active Problems Acute respiratory failure with hypoxia (Acute) Multifocal pneumonia (Acute) Somnolence (Acute) Hypokalemia (Acute) Lactic acidosis (Acute) Thrombocytosis (Acute) Leukocytosis (Acute) CHF exacerbation (Acute) Respiratory failure with hypoxia and hypercapnia (Acute) Brittany gangrene (Acute) Non-ST elevation [place] (NSTEMI) (Acute) Diastolic heart failure (Acute) Consolidation of left lower lobe of lung (Acute) Anxiety (Acute) Cellulitis of leg, left (Acute) Angina pectoris (Chronic) GERD (gastroesophageal reflux disease) (Chronic) Depression (Chronic) Morbid obesity (Chronic) AICD (automatic cardioverter/defibrillator) present (Acute) placed at [facility] for ischemic dilated cardiomyopathy [employer] Margaret MACDONALD 01/27/21 HLD (hyperlipidemia) (Acute) ETOH abuse (Chronic) Drug dependence (Chronic) COPD (chronic obstructive pulmonary disease) (Chronic) Acute on chronic heart failure with reduced ejection fraction and diastolic dysfunction (Acute) Ischemic cardiomyopathy (Chronic) Afib (Chronic) Tobacco use disorder (Acute) Hx of hyperlipidemia (Acute) HTN (hypertension) (Chronic) CAD (coronary artery disease) (Chronic) Medical History Alcohol use disorder, severe, dependence [facility] 01/21 Cardiac arrest CHF (congestive heart failure) Dental infection Exertional chest pain Homelessness Medication monitoring encounter Pacemaker Pulmonary nodules Surgical History History of coronary artery stent placement History of hernia repair History of right knee joint replacement History of tonsillectomy Social History Smoking/Tobacco Use Status: Current-Occasional Tobacco Type: cigarettes Smoking risk assessment performed?: Yes Alcohol Intake: former Year quit: 2020 Details: Former heavy alcohol use. Drug use: Current Sobriety Substance use type: former substance user, marijuana and prescription drug Do you feel safe at home: Yes Do you feel safe in your relationship?: Yes Meds Allergies and Home Medications Allergies Allergy/AdvReac Type Severity Reaction Status Date / Time hydromorphone [From Dilaudid] Allergy Verified 08/19/22 10:14 Home Medications Medication Instructions Recorded Confirmed Type aspirin 81 mg tablet,delayed 81 mg PO DAILY 01/06/22 08/19/22 History release atorvastatin 80 mg tablet 80 mg PO DAILY #30 tabs 01/06/22 08/19/22 Rx clopidogrel 75 mg tablet (Plavix) 75 mg PO DAILY #30 tabs 01/06/22 08/19/22 Rx folic acid 1 mg tablet 2 mg PO DAILY #30 tabs 01/06/22 08/19/22 Rx hydralazine 50 mg tablet 50 mg PO TID #90 tabs 01/06/22 08/19/22 Rx isosorbide mononitrate 30 mg 30 mg PO DAILY 01/06/22 08/19/22 History tablet,extended release 24 hr losartan 25 mg tablet 25 mg PO DAILY #30 tabs 01/06/22 08/19/22 Rx pantoprazole 40 mg tablet,delayed 40 mg PO DAILY #30 tabs 01/06/22 08/19/22 Rx release (Protonix) ranolazine 500 mg tablet,extended 500 mg PO BID 01/06/22 08/19/22 History release,12 hr buprenorphine 2 mg-naloxone 0.5 mg 1 film sublingual DAILY 01/26/22 08/19/22 History sublingual film buspirone 15 mg tablet 15 mg PO BID 03/31/22 08/19/22 History buprenorphine 8 mg-naloxone 2 mg 1 film sublingual DAILY 04/20/22 08/19/22 History sublingual film (Suboxone) lorazepam 0.5 mg tablet 0.5 mg PO BID PRN 04/20/22 08/19/22 History metoprolol succinate 25 mg 25 mg PO DAILY 04/20/22 08/19/22 History tablet,extended release 24 hr citalopram 20 mg tablet 20 mg PO DAILY 06/14/22 08/19/22 History gabapentin 300 mg capsule 300 mg PO TID 06/15/22 08/19/22 History albuterol sulfate 90 mcg/actuation 2 inh inhalation Q4H PRN #1 ea 06/17/22 08/19/22 Rx breath activated powder inhaler tiotropium 2.5 mcg-olodaterol 2.5 2 puff inhalation DAILY #4 grams 06/17/22 08/19/22 Rx mcg/actuation mist for inhalation (Stiolto Respimat) nitroglycerin 0.4 mg sublingual 0.4 mg sublingual Q5-15M PRN chest 07/03/22 08/19/22 Rx tablet pain #90 tabs torsemide 20 mg tablet 20 mg PO BID #180 tabs 07/03/22 08/19/22 Rx amiodarone 100 mg tablet 100 mg PO DAILY 08/05/22 08/19/22 History Exam Narrative Exam Narrative: Morbidly obese white male wearing BiPAP. Bearded. Slow lethargic but arousable answers questions appropriately. Neck is short obese difficult to discern JVD Lungs with diffuse bilateral rales heard throughout his chest Heart is regular rate and rhythm no appreciable murmur rub Abdomen obese soft nontender normal bowel sounds. Lower extremities 3+ pitting edema from the feet up to the groin. no cyanosis. pedal pulses intact Groin is examined he has diffuse erythema of the inguinal skin folds. Evaluation of the scrotum shows healing surgical scar over the raphae no purulent drainage no palpable induration Results Imaging Chest x-ray: report reviewed and image reviewed Abdomen CT scan report/results: report reviewed CT scan - chest: report reviewed and image reviewed CT scan - pelvis: report reviewed EKG: image reviewed Labs 09/17/22 07:53 09/17/22 07:53 Labs: Laboratory Results - last 24 hr 09/17/22 09/17/22 09/17/22 07:53 07:53 07:53 WBC 14.70 H RBC 5.02 Hgb 14.0 Hct 46.6 MCV 93 MCH 27.9 MCHC 30.0 L RDW 15.9 H Plt Count 619 H MPV 8.3 Immature Gran % 0.3 Neutrophils % 78.8 Lymphocytes % 12.1 Monocytes % 2.7 Eosinophils % 5.4 Basophils % 0.7 Nucleated RBC % 0.0 Absolute Neutrophils 11.58 H Absolute Lymphocytes 1.78 Absolute Monocytes 0.40 Absolute Eosinophils 0.79 H Absolute Basophils 0.10 ABG Sample Site ABG pH ABG pCO2 ABG pO2 ABG HCO3 ABG Total CO2 ABG O2 Saturation ABG Base Excess VBG Lactate 3.3 H* FiO2 Sodium 137 Potassium 3.3 L Chloride 95 L Carbon Dioxide 38.3 H Anion Gap 3.7 BUN 9 Creatinine 1.1 Est GFR (CKD-EPI 2020) 80.27 Glucose 189 H Calcium 9.2 Magnesium 1.8 Total Bilirubin 0.4 AST 20 ALT 25 Alkaline Phosphatase 120 H Troponin I < 50 NT-Pro-B Natriuret Pep 1439 H Total Protein 9.0 H Albumin 3.3 L Procalcitonin < 0.1 COVID-19 Source SARS-CoV-2 (PCR) 09/17/22 09/17/22 09/17/22 08:46 10:00 11:25 WBC RBC Hgb Hct MCV MCH MCHC RDW Plt Count MPV Immature Gran % Neutrophils % Lymphocytes % Monocytes % Eosinophils % Basophils % Nucleated RBC % Absolute Neutrophils Absolute Lymphocytes Absolute Monocytes Absolute Eosinophils Absolute Basophils ABG Sample Site Left Radial Left Radial ABG pH 7.27 L 7.27 L ABG pCO2 83 H* 83 H* ABG pO2 73 L 68 L ABG HCO3 38 H 38 H ABG Total CO2 35 H 36 H ABG O2 Saturation 94 L 93 L ABG Base Excess 11 H 12 H VBG Lactate FiO2 55 Sodium Potassium Chloride Carbon Dioxide Anion Gap BUN Creatinine Est GFR (CKD-EPI 2020) Glucose Calcium Magnesium Total Bilirubin AST ALT Alkaline Phosphatase Troponin I NT-Pro-B Natriuret Pep Total Protein Albumin Procalcitonin COVID-19 Source Nasal/Nares SARS-CoV-2 (PCR) Negative Last Vital Signs Pulse 71 09/17/22 12:18 Resp 16 09/17/22 12:18 Pulse Ox 93 09/17/22 12:18 Time Spent Time spent with Patient: 55-74 minutes Time was spent: preparing to see the patient(eg.review tests), obtaining and/or reviewing separately otained hiistory, ordering medications,tests, procedures, referring, communicating with other health chronic care nurse, indepentently interpreting results, counseling the patient and care coordination
[2022-09-17 12:54] LABS: Troponin I 756 ng/L (<or=60)
[2022-09-17 13:55] LABS: BE (Venous) 12 mmol/L (-2-3); HCO3 (Venous) 38 mmol/L (23-28); O2 Sat (Venous) 99 %; TCO2 (Venous) 35 mmol/L (24-29); pH (Venous) 7.33 (7.31-7.41); pO2 (Venous) 96 mmHg
[2022-09-17 14:00] LABS: pCO2 (Venous) 73 mmHg (41-51)
[2022-09-17 15:10] LABS: Lactate 3.3 mmol/L (0.6-1.4)
[2022-09-17] MEDS: CEFEPIME 2 GM in Normal Saline 100 ML IVPB ×2 (15:30→23:18)
--- NOTE | 2022-09-17 15:30 | RT.EKG_ITS ---
APPROVED REPORT Exam: Resting ECG Reason for Exam: elevated troponin Patient Location: I HR:75 bpm ECG Measurements Heart Rate 75 AXIS MT 173 P 61 QRSd 113 QRS 34 QT 428 T 78 QTc 479 Conclusion Sinus rhythm...normal P axis, V-rate 50- 99 Left atrial enlargement...P, P'>60mS, <-0.15mV V1 Borderline intraventricular conduction delay...QRSd >112mS Abnormal inferior Q waves...Qs add to 80 mS in II III aVF Nonspecific repol abnormality, diffuse leads...ST dep, T flat/neg, ant/lat/inf Borderline prolonged QT interval...QTc >475mS Baseline wander in lead(s) V1
[2022-09-17 15:37] LABS: Troponin I 1027 ng/L (<or=60)
[2022-09-17] MEDS: Enoxaparin 40 MG/0.4 ML SYR SC (15:43)
[2022-09-17] MEDS: Normal Saline Flush 10 ML SYR IVP (16:30)
[2022-09-17] MEDS: POTASSIUM CHLORIDE 20 MEQ/100 ML BAG 50 MEQ IVPB ×2 (16:30→23:18)
[2022-09-17] MEDS: Aspirin E.C. 325 MG TABEC PO ×2 (16:32→17:05)
[2022-09-17] MEDS: methylPREDNISolone SUCC 125 MG VIAL 60 MG IVP (16:33)
[2022-09-17 16:38] LABS: INR 1.1 (0.9-1.1); PTT Activated 25.4 sec (21.5-31.9); Prothrombin Time 11.6 sec (9.3-11.0)
--- NOTE | 2022-09-17 16:38 | W.POCUS ---
Pocus Exam Limited Cardiac Exam DATE OF EXAM: 09/17/22 TIME OF EXAM: 16:12 PROVIDER THAT PERFORMED THE STUDY: Bola Coombs REASON FOR EXAM: Congestive heart failure and RI VISUALIZED STRUCTURES: four chambers, LVOT, aortic valve and IVC VIEW OBTAINED: Apical 4-Chamber, Parasternal long-axis and Subxiphoid PERTINENT FINDINGS/IMPRESSION: LV dysfunction :mild; no IVC inspiratory collapsability, No RV dilation and No RV dysfunction INCIDENTAL FINDINGS: Suboptimal images. Recommend full echo w/ echo enhancing contrast. LV appears to have mild dysfunction particularly apical and anterolateral apical segments, however I would perform contrast enhancing study to better visualize LV endocardial borders. IVC is not plethoric however, it has less than 50% inspiratory variability consistent w/ moderate RAP of 8 cm. RV is not dilated and appears to have good contractility. Exam complete
[2022-09-17] MEDS: Clopidogrel 75 MG TAB PO (17:04)
[2022-09-17] MEDS: Allopurinol 100 MG TAB PO (17:04)
[2022-09-17] MEDS: Pantoprazole 40 MG TABCR PO (17:04)
[2022-09-17] MEDS: Normal Saline 500 ML IV (17:42)
[2022-09-17 18:23] LABS: Anion Gap 4.1 mmol/L (3-11); BUN 11 mg/dL (7-18); CO2 37.9 mmol/L (21.0-32.0); CREATININE 1.1 mg/dL (0.70-1.30); Calcium 8.7 mg/dL (8.5-10.1); Chloride 96 mmol/L (98-107); Estimated GFR 80.27 (mL/min/1.73m2); Glucose 189 mg/dL (74-106); Potassium 3.9 mmol/L (3.5-5.1); Sodium 138 mmol/L (136-145)
[2022-09-17 18:33] LABS: Troponin I 995 ng/L (<or=60)
[2022-09-17] MEDS: busPIRone 15 MG TAB PO (21:02)
[2022-09-17] MEDS: Atorvastatin 40 MG TAB 80 MG PO (21:02)
[2022-09-17] MEDS: Gabapentin 300 MG CAP PO (21:02)
[2022-09-17 23:51] LABS: PTT Activated 27.1 sec (21.5-31.9)
[2022-09-18] VITALS (130 sets, daily range): BP systolic 91–168; BP diastolic 48–124; PULSE 49–145; RESP 7–30; TEMP 36–36.9; O2SAT 83–97
--- NOTE | 2022-09-18 | DI.US_ITS ---
APPROVED REPORT EXAM: Comprehensive 2D, Doppler, and color-flow Echocardiogram Patient Location: In-Patient Room/Bed: icu [place] Bender: Erin Puri RDCS (AE) Indications: CHF,Evaluate LV and RV function, AICD, CAD Echo Enhancing Agent Indication: Endocardial border delineation Agent(s) / Amount(s) Used: Definity 3.0 cc Comments: Contrast study was performed with 1 IV injection of 2cc of diluted definity. Other Information Study Quality: Poor. Technically limited study due to body habitus, inability to position patient exa m done supine. Conclusion LV appears mildly dilated. Ejection fraction is 55%. Left ventricular apex and anteroapical segment are akinetic Right ventricle appears grossly normal in size and systolic function The left atrium is mildly dilated. Right atrial size is normal Device lead noted in the right heart Aortic valve is sclerotic without stenosis or regurgitation No additional structural valvular disease is identified Immediate right ventricular systolic pressure is 42 mmHg Wall motion Left Ventricle Technically limited imaging. LV appears mildly dilated Definity microbubble contrast injection was gi josé. Able to assess wall thickness There is no ventricular septal defect visualized. LVEF is 55%. Right Ventricle Right ventricle is not well visualized, grossly normal. Right ventricular systolic function is gross ly normal. The RVSP is 42.6mmHg. Device lead is present in the right ventricle. Atria The left atrium size is mildly dilated The right atrium size is normal. The interatrial septum is int act with no evidence for an atrial septal defect. Aortic Valve The Aortic valve is sclerotic. Aortic valve is probably trileaflet. No hemodynamically significant va lvular aortic stenosis. No aortic regurgitation is present. Mitral Valve Mitral valve is normal in structure. No evidence of mitral valve stenosis. Trace mitral regurgitation . Tricuspid Valve The tricuspid valve is normal in structure. There is no tricuspid valve stenosis. Trace to mild tricu spid regurgitation. Pulmonic Valve Pulmonic valve is not well visualized. There is no pulmonic valvular stenosis. There is no pulmonic v alvular regurgitation. Great Vessels The aortic root is normal in size. The ascending aorta is normal in size. The IVC collapses <50% with inspiration. Pericardium There is no pericardial effusion. 2D Dimensions Ao Root d 3.13 cm M: 3.1 - 3.7 LV Vol A2C d MOD 280.2 mL Ao Asc Diam d 3.21 cm M: 2.6 - 3.4 LV Vol A4C d MOD 379.6 mL LVEF (Singletary's) 36.84 % M: 52 - 72 LV EF A4C MOD 31.8 % LV Volume 235.57 mL M: 62 - 150 LV EF A2C MOD 40.4 % LV Volume Index 89.91 mL/m2 M: 34 - 74 LV EF Biplane MOD 36.8 % LV Vol Biplane MOD 340.8 mL SV 125.55 mL SV Index 48.03 mL/m2 M-Mode TAPSE 2.52 cm (M/F) >1.7 LV Diastology MV E' medial 0.158 (>0.07 m/s) E/A Ratio 1.6 LV E/e MED 8.10 (<14) MV E Vmax 1.28 (0.4-1.3 m/s) MV E' lateral 0.140 (>0.1 m/s) MV A Vmax 0.80 (0.4-1.3 m/s) LV E/e LAT 9.15 (<14) MV E/A Ratio 1.59 MV E/E' medial 8.11 MV E/E' lateral 9.15 Aortic Valve LVOT Area 3.46 cm2 AoV Area Vmax 2.56 cm2 LVOT Vmax 1.43 m/s AoV Area/ BSA (Vmax) 0.98 cm2/m2 LVOT Mean Sunil. 0.91 m/s JESSIE Mean Sunil. 2.22 cm2 LVOT Peak Grad 8.2 mmHg JESSIE Mean Sunil. Index 0.85 cm2/m2 LVOT Mean Grad 3.9 mmHg LVOT VTI 0.304 m LVOT Diam s 2.05 cm AoV Vmax 1.94 m/s Velocity Ratio 0.74 AoV Mean Sunil. 1.41 m/s AoV Peak Grad 15.0 mmHg LVOT SV 105.23 mL AoV Mean Grad 8.8 mmHg AoV VTI 0.437 m AoV Area VTI 2.41 cm2 AoV Area/ BSA (VTI) 0.92 cm/m2 Mitral Valve MV DT 173 (160-240 msec) MV PHT 50 msec MV Area PHT 4.39 cm2 Pulmonary Valve PV Vmax 1.14 (0.5-1.5 m/s) RVOT Peak Gr. 2.70 mmHg PV Peak Grad 5.2 mmHg RVOT Mean Gr. 1.40 mmHg PV Mean Grad 3.3 mmHg RVOT VTI 0.191 m PV VTI 0.248 m RVOT Vmax 0.82 m/s Tricuspid Valve TR Peak Grad 34.6 mmHg TR Vmax 2.94 m/s RA Pressure 8.00 mmHg RVSP (TR) 42.6 mmHg
--- NOTE | 2022-09-18 | DI.RAD_ITS ---
Exam(s) XR PORTABLE CHEST AP EXAM: XR PORTABLE CHEST AP CLINICAL HISTORY: pulmonary edema TECHNIQUE: 2D digital imaging was performed of the chest. Two images were obtained. AP views were obtained. COMPARISON: CR XR PORTABLE CHEST AP from 09/17/2022 FINDINGS: MEDIASTINUM: Normal. HEART: Normal. The dual lead pacing device is stable in position. PULMONARY VASCULATURE: Normal. LUNGS: There are bilateral airspace opacities again noted. There does appear to be improved aeration particularly in the right lung base. No new infiltrates are seen. PLEURAL SPACE: No pleural effusion or pneumothorax. BONE:Within normal limits for the patient's age. OTHER FINDINGS:Normal. IMPRESSION: Persistent bilateral airspace opacities with a question of slight improved appearance in the right lyndsey ng base. DATA REPOSITORY: RADIATION DOSE DELIVERED:
[2022-09-18] MEDS: POTASSIUM CHLORIDE 10 MEQ/100 ML BAG 50 MEQ (02:28)
[2022-09-18] MEDS: POTASSIUM CHLORIDE 20 MEQ/100 ML BAG 25 MEQ (02:35)
[2022-09-18 06:35] LABS: Abs Immature Grans 0.11 10^3/uL (0.0-0.06); Absolute Basophil Count 0.04 10^3/uL (0.0-0.2); Absolute Eosinophil Count 0.06 10^3/uL (0.0-0.7); Basophils % 0.2; Eosinophils % 0.3; HCT 37.5 % (40.0-50.0); HGB 11.3 g/dL (13.5-17.5); Immature Grans % 0.5; Lymphocytes % 5.4; MCH 27.6 pg (27.0-33.0); MCHC 30.1 % (32.0-36.0); MCV 92 fL (80-95); MPV 8.6 fL (8.0-11.0); Monocytes % 4.7; Neutrophils % 88.9; Platelet Count 453 10^3/uL (130-400); RBC 4.09 10^6/uL (4.36-5.78); WBC 20.54 10^3/uL (4.4-10.8)
[2022-09-18 06:45] LABS: Absolute Lymphocyte Count 1.11 10^3/uL (1.2-3.4); Absolute Monocyte Count 0.97 10^3/uL (0.1-0.8); Absolute Neutrophil Count 18.26 10^3/uL (1.2-6.7); PTT Activated 37.9 sec (21.5-31.9)
[2022-09-18 06:48] LABS: ALT 15 U/L (16-63); AST 17 U/L (15-37); Albumin 2.4 g/dL (3.4-5.0); Alkaline Phosphatase 81 U/L (46-116); Anion Gap 2.2 mmol/L (3-11); BUN 15 mg/dL (7-18); Bilirubin, Total 0.4 mg/dL (0.2-1.0); CO2 40.8 mmol/L (21.0-32.0); CREATININE 0.9 mg/dL (0.70-1.30); Calcium 8.4 mg/dL (8.5-10.1); Calculated LDL 36 mg/dL (<100); Chloride 98 mmol/L (98-107); Cholesterol 95 mg/dL (<200); Estimated GFR 102.12 (mL/min/1.73m2); Glucose 144 mg/dL (74-106); HDL Cholesterol 48 mg/dL (40-60); Potassium 4.4 mmol/L (3.5-5.1); Sodium 141 mmol/L (136-145); Total Protein 7.6 g/dL (6.4-8.2); Triglyceride 55 mg/dL (<150)
[2022-09-18 07:01] LABS: Hemoglobin A1C 5.8 % (<5.7)
--- NOTE | 2022-09-18 07:04 | PUCC_ITS ---
General Date of Service Date of service: 09/18/22 Time of Service: 08:00 Reason for Admission to ICU: Hypoxic and Hypercapnic respiratory failure Assessment and Plan Assessment and plan (1) Cellulitis of leg, left: Status: Acute (2) Respiratory failure with hypoxia and hypercapnia: Status: Acute (3) CHF exacerbation: Status: Acute (4) COPD (chronic obstructive pulmonary disease): Status: Chronic (5) Leukocytosis: Status: Acute (6) Somnolence: Status: Acute (7) Thrombocytosis: Status: Acute (8) Lactic acidosis: Status: Acute (9) Hypokalemia: Status: Acute (10) Non-ST elevation DC (NSTEMI): Status: Acute (11) CAD (coronary artery disease): Status: Chronic (12) Morbid obesity: Status: Chronic (13) AICD (automatic cardioverter/defibrillator) present: Status: Acute Assessment and plan: This is a 51 yo man with ischemic CHF s/p AICD, COPD and a recent [facility] hospitalization for cellulitis. Surgery has been consulted to assess this infection (although by imaging is is smaller) and does not feel as though an additional incision would be beneficial at this point. Clinically, I believe he is in heart failure. He responded well to diuresis and his respiratory support continues to decrease. His chest CT is likely pulmonary edema (particularly given the clinical presentation), however cannot rule out infection so he is on cefepime. I do recommend repeat CXRand have ordered this to assess for radiologic improvement of pulmonary edema. I agree with a repeat echo. I do recommend aggressive diuresis (with bid electrolytes). I do not think he needs a Lasix drip and would recommend bolus Lasix dosing as needed to achieve -1 to -2 L fluid balance in 24 hours. He has troponin elevation, that could easily be ischemic or demand in nature (given his history), however do not think a heparin drip offers any benefit, so would discontinue this. Recommendations Pulmonary: Acute on Chronic Hypoxic and Hypercapnic respiratory failure - CHF exacerbation, OHS, COPD - agree with BiPAP, settings weaned to 16/10 at 40% s/p diuresius - O2 sat goal >90% - recommend diuresis as below - once more medically stable will work on Trilogy qualification - he will need: ABG, inpatient spirometry, overnight oximetry, likely early next week COPD - I do not feel strongly that he is in exacerbation - Duonebs QID - continue home Stiolto when able - albuterol HFA prn Cardiac: CHF Exacerbaiton - likely has 30lbs+ excess fluid - recommend diuresis -1 to -2L negative within 24 hours - electrolytes bid during aggressive diuresis - recommend stopping Lasix drip and giving bolus Lasix as needed to achieve I/O goal - would hold blood pressure lowering agents currently, with reassessment tomorrow - has AICD NSTEMI - unclear Type 1 versus Type 2 versus combination - heparin unlikely to add clinical benefit Renal: Lactic acidosis - repeat lactate, if decreasing no need to trend - I have ordered a repeat Hypokalemia - goal 4.0 I&O: Intake & Output 09/15/22 09/16/22 09/17/22 09/18/22 23:59 23:59 23:59 23:59 Intake Total 387.250 / 387.250 332.675 / 332.675 Output Total 3960 / 3960 625 / 625 Balance -3572.750 / -3572.750 -292.325 / -292.325 Weight 158.3 kg 154.3 kg Daily Fluid Goal:: negative 2 L in 24 hours GI Nutrition: OK for diet Date of Last Bowel Movement: 09/14/22 Infectious Disease: Possible HAP - negative MRSA nares 06/2022 - Cefepime for 5 days - sputum culture if able - blood cultures pending - recommend CXR tomorrow Cellulitis - blood cultures pending - on cefepime - surgery has been consulted Hematologic: Leukocytosis - reactive versus infection - continue to monitor Thrombocytosis - reactive Neurologic: Somnolence - due to hypoxia and hypercapnia - BiPAP and diuresis - continue to assess Endocrine: No acute concerns Lines: PIV Puente Prophylaxis: on heparin Protonix - home med Code Status: Resuscitation Status Full Code Subjective Critical and life-threatening events over the past 24 hours: Luis is much more awake today. He was transitioned to nasal cannula, although is still somewhat sleepy. He is feeling much better and does not remember much of yesterday aside from saying he needed to go the the ED in the morning. Exam Narrative Exam Narrative: Gen: NAD, normal respiratory effort, obese HENT: PERRL Chest: No respiratory distress, on BiPAP. Bilateral crackles present. Heart: regular rate and rhythym, no murmurs, rubs or gallops Abdomen: Non-distended, soft, non tender Extremities: No clubbing, 3++ edema up through abdomen. Left upper inner thigh erythematous region Neuro: AAOx1, sleepy Psych: unable to assess Most Recent VS/Results Last Vital Signs Temp 36.9 C 09/18/22 04:00 Pulse 58 L 09/18/22 06:01 Resp 11 L 09/18/22 06:20 BP 118/54 L 09/18/22 06:01 Pulse Ox 91 L 09/18/22 06:20 Laboratory Results - last 24 hr 09/17/22 09/17/22 09/17/22 07:53 07:53 07:53 WBC 14.70 H RBC 5.02 Hgb 14.0 Hct 46.6 MCV 93 MCH 27.9 MCHC 30.0 L RDW 15.9 H Plt Count 619 H MPV 8.3 Immature Gran % 0.3 Neutrophils % 78.8 Lymphocytes % 12.1 Monocytes % 2.7 Eosinophils % 5.4 Basophils % 0.7 Nucleated RBC % 0.0 Absolute Neutrophils 11.58 H Absolute Lymphocytes 1.78 Absolute Monocytes 0.40 Absolute Eosinophils 0.79 H Absolute Basophils 0.10 PT INR APTT ABG Sample Site ABG pH ABG pCO2 ABG pO2 ABG HCO3 ABG Total CO2 ABG O2 Saturation ABG Base Excess VBG pH VBG pCO2 VBG pO2 VBG HCO3 VBG Total CO2 VBG O2 Saturation VBG Base Excess VBG Lactate 3.3 H* FiO2 Sodium 137 Potassium 3.3 L Chloride 95 L Carbon Dioxide 38.3 H Anion Gap 3.7 BUN 9 Creatinine 1.1 Est GFR (CKD-EPI 2020) 80.27 Glucose 189 H Hemoglobin A1c Calcium 9.2 Magnesium 1.8 Total Bilirubin 0.4 AST 20 ALT 25 Alkaline Phosphatase 120 H Troponin I < 50 NT-Pro-B Natriuret Pep 1439 H Total Protein 9.0 H Albumin 3.3 L Triglycerides Total Cholesterol LDL Cholesterol, Calc HDL Cholesterol Procalcitonin < 0.1 COVID-19 Source SARS-CoV-2 (PCR) 09/17/22 09/17/22 09/17/22 08:46 10:00 10:48 WBC RBC Hgb Hct MCV MCH MCHC RDW Plt Count MPV Immature Gran % Neutrophils % Lymphocytes % Monocytes % Eosinophils % Basophils % Nucleated RBC % Absolute Neutrophils Absolute Lymphocytes Absolute Monocytes Absolute Eosinophils Absolute Basophils PT INR APTT ABG Sample Site Left Radial Left Radial ABG pH 7.27 L 7.27 L ABG pCO2 83 H* 83 H* ABG pO2 73 L 68 L ABG HCO3 38 H 38 H ABG Total CO2 35 H 36 H ABG O2 Saturation 94 L 93 L ABG Base Excess 11 H 12 H VBG pH VBG pCO2 VBG pO2 VBG HCO3 VBG Total CO2 VBG O2 Saturation VBG Base Excess VBG Lactate FiO2 55 Sodium Potassium Chloride Carbon Dioxide Anion Gap BUN Creatinine Est GFR (CKD-EPI 2020) Glucose Hemoglobin A1c Calcium Magnesium Total Bilirubin AST ALT Alkaline Phosphatase Troponin I 756 H* NT-Pro-B Natriuret Pep Total Protein Albumin Triglycerides Total Cholesterol LDL Cholesterol, Calc HDL Cholesterol Procalcitonin COVID-19 Source SARS-CoV-2 (PCR) 09/17/22 09/17/22 09/17/22 11:25 13:45 14:59 WBC RBC Hgb Hct MCV MCH MCHC RDW Plt Count MPV Immature Gran % Neutrophils % Lymphocytes % Monocytes % Eosinophils % Basophils % Nucleated RBC % Absolute Neutrophils Absolute Lymphocytes Absolute Monocytes Absolute Eosinophils Absolute Basophils PT INR APTT ABG Sample Site ABG pH ABG pCO2 ABG pO2 ABG HCO3 ABG Total CO2 ABG O2 Saturation ABG Base Excess VBG pH 7.33 VBG pCO2 73 H* VBG pO2 96 VBG HCO3 38 H VBG Total CO2 35 H VBG O2 Saturation 99 VBG Base Excess 12 H VBG Lactate 3.3 H* FiO2 Sodium Potassium Chloride Carbon Dioxide Anion Gap BUN Creatinine Est GFR (CKD-EPI 2020) Glucose Hemoglobin A1c Calcium Magnesium Total Bilirubin AST ALT Alkaline Phosphatase Troponin I NT-Pro-B Natriuret Pep Total Protein Albumin Triglycerides Total Cholesterol LDL Cholesterol, Calc HDL Cholesterol Procalcitonin COVID-19 Source Nasal/Nares SARS-CoV-2 (PCR) Negative 09/17/22 09/17/22 09/17/22 14:59 15:06 16:14 WBC RBC Hgb Hct MCV MCH MCHC RDW Plt Count MPV Immature Gran % Neutrophils % Lymphocytes % Monocytes % Eosinophils % Basophils % Nucleated RBC % Absolute Neutrophils Absolute Lymphocytes Absolute Monocytes Absolute Eosinophils Absolute Basophils PT 11.6 H INR 1.1 APTT 25.4 ABG Sample Site ABG pH ABG pCO2 ABG pO2 ABG HCO3 ABG Total CO2 ABG O2 Saturation ABG Base Excess VBG pH VBG pCO2 VBG pO2 VBG HCO3 VBG Total CO2 VBG O2 Saturation VBG Base Excess VBG Lactate FiO2 Sodium Potassium Chloride Carbon Dioxide Anion Gap BUN Creatinine Est GFR (CKD-EPI 2020) Glucose Hemoglobin A1c Calcium Magnesium Total Bilirubin AST ALT Alkaline Phosphatase Troponin I 1027 H* Cancelled NT-Pro-B Natriuret Pep Total Protein Albumin Triglycerides Total Cholesterol LDL Cholesterol, Calc HDL Cholesterol Procalcitonin COVID-19 Source SARS-CoV-2 (PCR) 09/17/22 09/17/22 09/17/22 18:03 18:03 23:05 WBC RBC Hgb Hct MCV MCH MCHC RDW Plt Count MPV Immature Gran % Neutrophils % Lymphocytes % Monocytes % Eosinophils % Basophils % Nucleated RBC % Absolute Neutrophils Absolute Lymphocytes Absolute Monocytes Absolute Eosinophils Absolute Basophils PT INR APTT 27.1 ABG Sample Site ABG pH ABG pCO2 ABG pO2 ABG HCO3 ABG Total CO2 ABG O2 Saturation ABG Base Excess VBG pH VBG pCO2 VBG pO2 VBG HCO3 VBG Total CO2 VBG O2 Saturation VBG Base Excess VBG Lactate FiO2 Sodium 138 Potassium 3.9 Chloride 96 L Carbon Dioxide 37.9 H Anion Gap 4.1 BUN 11 Creatinine 1.1 Est GFR (CKD-EPI 2020) 80.27 Glucose 189 H Hemoglobin A1c Calcium 8.7 Magnesium Total Bilirubin AST ALT Alkaline Phosphatase Troponin I 995 H* NT-Pro-B Natriuret Pep Total Protein Albumin Triglycerides Total Cholesterol LDL Cholesterol, Calc HDL Cholesterol Procalcitonin COVID-19 Source SARS-CoV-2 (PCR) 09/18/22 09/18/22 09/18/22 06:20 06:20 06:20 WBC 20.54 H RBC 4.09 L Hgb 11.3 L D Hct 37.5 L MCV 92 MCH 27.6 MCHC 30.1 L RDW 16.0 H Plt Count 453 H MPV 8.6 Immature Gran % 0.5 Neutrophils % 88.9 Lymphocytes % 5.4 Monocytes % 4.7 Eosinophils % 0.3 Basophils % 0.2 Nucleated RBC % 0.0 Absolute Neutrophils 18.26 H Absolute Lymphocytes 1.11 L Absolute Monocytes 0.97 H Absolute Eosinophils 0.06 Absolute Basophils 0.04 PT INR APTT ABG Sample Site ABG pH ABG pCO2 ABG pO2 ABG HCO3 ABG Total CO2 ABG O2 Saturation ABG Base Excess VBG pH VBG pCO2 VBG pO2 VBG HCO3 VBG Total CO2 VBG O2 Saturation VBG Base Excess VBG Lactate FiO2 Sodium 141 Potassium 4.4 Chloride 98 Carbon Dioxide 40.8 H Anion Gap 2.2 L BUN 15 Creatinine 0.9 Est GFR (CKD-EPI 2020) 102.12 Glucose 144 H Hemoglobin A1c 5.8 H Calcium 8.4 L Magnesium Total Bilirubin 0.4 AST 17 ALT 15 L Alkaline Phosphatase 81 Troponin I NT-Pro-B Natriuret Pep Total Protein 7.6 Albumin 2.4 L Triglycerides 55 Total Cholesterol 95 LDL Cholesterol, Calc 36 HDL Cholesterol 48 Procalcitonin COVID-19 Source SARS-CoV-2 (PCR) 09/18/22 06:20 WBC RBC Hgb Hct MCV MCH MCHC RDW Plt Count MPV Immature Gran % Neutrophils % Lymphocytes % Monocytes % Eosinophils % Basophils % Nucleated RBC % Absolute Neutrophils Absolute Lymphocytes Absolute Monocytes Absolute Eosinophils Absolute Basophils PT INR APTT 37.9 H ABG Sample Site ABG pH ABG pCO2 ABG pO2 ABG HCO3 ABG Total CO2 ABG O2 Saturation ABG Base Excess VBG pH VBG pCO2 VBG pO2 VBG HCO3 VBG Total CO2 VBG O2 Saturation VBG Base Excess VBG Lactate FiO2 Sodium Potassium Chloride Carbon Dioxide Anion Gap BUN Creatinine Est GFR (CKD-EPI 2020) Glucose Hemoglobin A1c Calcium Magnesium Total Bilirubin AST ALT Alkaline Phosphatase Troponin I NT-Pro-B Natriuret Pep Total Protein Albumin Triglycerides Total Cholesterol LDL Cholesterol, Calc HDL Cholesterol Procalcitonin COVID-19 Source SARS-CoV-2 (PCR) Review of Systems All systems reviewed & are unremarkable except as noted in HPI and below Time spent with patient Time spent in Critical Care: 40 Time spent in Critical care included: Chart review, Documenting critically ill care, Time at immediate bedside and Discussing critically ill care with other medical staff Multi-Disciplinary Checklist Lines/Tubes CENTRAL LINE: no ARTERIAL LINE: no PUENTE: yes, Puente Day#: 1 ENDOTRACHEAL TUBE: no ICU Maintenance GLUCOSE 140-180mg/dL: yes NUTRITION AT GOAL: yes PRESSURE ULCER: yes, RESTRAINTS: no ANTIBIOTICS(if yes, consider Stewardship): Yes Social Issues FAMILY UPDATED: no, Reason/Intervention: patient capable of this today PT/OT: no, Reason/Intervention: not currently appropriate GOALS/DISPOSITION/ENVIRONMENTAL HEALTH AND SAFETY INTERN: yes CODE STATUS: Full Prophylaxis DVT PROPHYLAXIS: yes GI PROPHYLAXIS: yes, Indication: home med
[2022-09-18] MEDS: Tiotropium/Olodaterol 10 PUFF INHALER 2 PUFF IH (07:56)
[2022-09-18] MEDS: busPIRone 15 MG TAB PO ×2 (08:01→20:04)
[2022-09-18] MEDS: Clopidogrel 75 MG TAB PO (08:01)
[2022-09-18] MEDS: Aspirin E.C. 81 MG TABEC PO (08:01)
[2022-09-18] MEDS: Citalopram 20 MG TAB PO (08:01)
[2022-09-18] MEDS: Folic Acid 1 MG TAB 2 MG PO (08:03)
[2022-09-18] MEDS: Allopurinol 100 MG TAB PO (08:04)
[2022-09-18] MEDS: Pantoprazole 40 MG TABCR PO (08:04)
[2022-09-18] MEDS: Gabapentin 300 MG CAP PO ×3 (08:04→20:04)
[2022-09-18] MEDS: CEFEPIME 2 GM in Normal Saline 100 ML IVPB ×3 (08:40→23:25)
[2022-09-18] MEDS: Buprenorphine/Naloxone 2 mg/0.5 mg FILM 2 EACH SL (08:45)
[2022-09-18] MEDS: Buprenorphine/Naloxone 8 mg/2 mg FILM 1 EACH SL (08:45)
--- NOTE | 2022-09-18 08:51 | PDOC.CMIN ---
Date of service: 09/18/22 Time of Service: 08:51 Care Management Initial Assmt Initial Assessment REASON FOR HOSPITALIZATION:: heart failure PREVIOUS FUNCTIONAL STATUS/SOCIAL/FAMILY SUPPORTS:: Pramod lives in [place] He has a room at the [facility] through [employer] [facility] until 10/30/22. Luis is going through a separation. He has two adult children who live out of state in [place]. He is currently not employed, and, just recently, was granted disability. He is independent at baseline with ADLs but uses a walker and a cane as needed. Luis also receives home health services for RN, PT and OT and [employer]. CURRENT FUNCTIONAL STATUS:: Luis was sitting on the side of the bed when CM met with him. He was cordial and agreeable to conversation. Luis informed CM that he has been sick and in and out of hospitals most of the past 2-3 of months. He was at [facility] in July, [facility] for almost a month in August and now he is at [facility] again after only a week at home. He is still living at [facility] but only until 10/30/22. Luis stated that he has no ides where he will go from there. He has just begun receiving disability payments of about $1200 per month so may be eligible for subsidized housing. He verbalized that he recognizes the need to meet with [employer] regarding housing options after October. CM suggested [facility] and Luis stated that he felt it may be helpful, particularly if he is able to have community case management. The referral was sent. ADVANCE DIRECTIVES:: does not have advanced directives Has patient been provided with info about the portal/API?: Yes Did the patient sign up for the portal?: No CODE STATUS:: Full Code INSURANCE COVERAGE / FINANCIAL ISSUES:: Medicaid CURRENT HOME/COMMUNITY SERVICES/EQUIPMENT:: has a cane and a walker Receives home health services for nursing, PT and OT. PRIMARY CARE PHYSICIAN:: Gerri Silverman POTENTIAL DISCHARGE NEEDS:: Follow up with PCP and plan of care PATIENT/FAMILY EDUCATION NEEDS:: Review of discharge instructions, activity, limitations, follow up plan, Ask Me Three TRANSPORTATION:: via RCT coordinated by CM PLAN:: Anticipate Luis will return to the community when medically cleared with a resumption of home health services for nursing, PT and OT. A referral has been sent to [facility] for Options Counseling and community case management. He will follow up with his PCP, Cardiology and plan of care and transport via [facility]. CM will follow and assess for discharge concerns. PFSH All Active Problems (Updated 09/17/22 @ 19:19 by Zenon Yusuf MD) Left thigh pain (Acute) Acute respiratory failure with hypoxia (Acute) Multifocal pneumonia (Acute) Somnolence (Acute) Hypokalemia (Acute) Lactic acidosis (Acute) Thrombocytosis (Acute) Leukocytosis (Acute) CHF exacerbation (Acute) Respiratory failure with hypoxia and hypercapnia (Acute) Brittany gangrene (Acute) Non-ST elevation ID (NSTEMI) (Acute) Diastolic heart failure (Acute) Consolidation of left lower lobe of lung (Acute) Anxiety (Acute) Cellulitis of leg, left (Acute) Angina pectoris (Chronic) GERD (gastroesophageal reflux disease) (Chronic) Depression (Chronic) Morbid obesity (Chronic) AICD (automatic cardioverter/defibrillator) present (Acute) placed at [facility] for ischemic dilated cardiomyopathy [employer] Margaret MACDONALD 01/27/21 RH HLD (hyperlipidemia) (Acute) ETOH abuse (Chronic) Drug dependence (Chronic) COPD (chronic obstructive pulmonary disease) (Chronic) Acute on chronic heart failure with reduced ejection fraction and diastolic dysfunction (Acute) Ischemic cardiomyopathy (Chronic) Afib (Chronic) Tobacco use disorder (Acute) Hx of hyperlipidemia (Acute) HTN (hypertension) (Chronic) CAD (coronary artery disease) (Chronic) Medical History Alcohol use disorder, severe, dependence [facility] 01/21 Cardiac arrest CHF (congestive heart failure) Dental infection Exertional chest pain Homelessness Medication monitoring encounter Pacemaker Pulmonary nodules Surgical History History of coronary artery stent placement History of hernia repair History of right knee joint replacement History of tonsillectomy Social History Smoking/Tobacco Use Status: Current-Occasional Tobacco Type: cigarettes Smoking risk assessment performed?: Yes Alcohol Intake: former Year quit: 2020 Details: Former heavy alcohol use. Drug use: Current Sobriety Substance use type: former substance user, marijuana and prescription drug Do you feel safe at home: Yes Do you feel safe in your relationship?: Yes
[2022-09-18 09:13] LABS: Lab Add On Test DONE
[2022-09-18 09:53] LABS: NT-proBNP 3108 pg/mL (<300)
[2022-09-18 09:55] LABS: Troponin I 619 ng/L (<or=60)
--- NOTE | 2022-09-18 09:59 | NUR.NOTE ---
RN gives patient some wheat bread with butter and a cup of custard and a glass of orange juice.Nursing Note:
--- NOTE | 2022-09-18 10:14 | NUR.NOTE ---
Blood sugar is 160.Nursing Note:
[2022-09-18 10:43] LABS: Lactate 3.2 mmol/L (0.6-1.4)
--- NOTE | 2022-09-18 11:18 | NUR.NOTE ---
Patient placed back on BIPAP.Nursing Note:
--- NOTE | 2022-09-18 11:25 | TELEP.MEDR_ITS ---
Date of service: 09/18/22 Time of Service: 11:25 Telepharmacy Home Med Rec Allergies Allergies: hydromorphone [From Dilaudid] Allergy (Verified 08/19/22 10:14) Interview Person Interviewed: Patient with nurse to assist with BIPAP Quality Quality of Interview/Accuracy of Medication List: Good Sources Sources used to compile medication list: [employer] Medication List and [employer] Changes made to Home Medication List: ADDITIONS: none DELETIONS: metoprolol CHANGES: Buprenophine increased from 10mg to 12 mg daily via film Siri is unsure if he takes hydralazine Additional Notes Additional Notes: none Recommended Changes Recommended Changes(reason for recommendation): none Attestation: The home medication list is now updated to the best of my knowledge and is ready to be reconciled by the provider. Please contact the TelePharmacy Medication Reconciliation Pharmacist at for any questions.
--- NOTE | 2022-09-18 12:03 | NUR.NOTE ---
RN calls cafeteria to bring up a lunch for patient.Nursing Note:
--- NOTE | 2022-09-18 12:12 | NUR.NOTE ---
Patient taken off BIPAP and is placed on high flow nasal cannulat at 7 liters. Nursing Note:
--- NOTE | 2022-09-18 12:13 | NUR.NOTE ---
Patient is set up with lunch tray.Nursing Note:
[2022-09-18] MEDS: LORazepam 0.5 MG TAB PO ×2 (12:25→21:10)
[2022-09-18] MEDS: Perflutren Lipid Microspheres 1.5 ML VIAL IVP (13:57)
--- NOTE | 2022-09-18 14:03 | PGE_ITS ---
Date of Service Date of service: 09/18/22 Time of Service: 14:07 Assessment and Plan Assessment and plan (1) Acute on chronic heart failure with reduced ejection fraction and diastolic dysfunction: Status: Acute Assessment and plan: Echo of 04/20/22 demonstrated his LVEF to be preserved at 60 to 65% with apical wall motion abnormality. Historically he has HFrEF w/ prior LVEF 40 TO 45% and hx of VT arrest requiring AICD and 7 prior drug elution stents. Current echo report showed EF of 55% with left ventricular apex and anteroapical segment akinesis. Unclear whether this is primary ACS vs secondary stress induced ischemic troponin leak from his CHF. Troponin trending downward. Continue ASA and Plavix. No likely benefit from further heparin / d/c'd. D/C nitro drip. Pumonary/Intensivitst following. (2) Respiratory failure with hypoxia and hypercapnia: Status: Acute Assessment and plan: He initially was billed as a multifocal pneumonia but it is now more clear that the primary process is CHF. Nevertheless, he recently was hospitalized for cell ulitis of his groin and has leukocytosis (may be reactive to his NSTEMI and CHF), I laina continue w/ cefepime pending his blood cultures Lactic acidosis; remains elevated today. IV fluids and antibiotics continued. Recheck in AM. BiPAP at 16/10 with 40%. O2 goal of > 90%. ABG and overnight oximetry planned when further stabilized; in preperation for qualifying him for a Trilogy. (3) Non-ST elevation [place] (NSTEMI): Status: Acute Assessment and plan: as above. (4) COPD (chronic obstructive pulmonary disease): Status: Chronic Assessment and plan: Symbicort and Spiriva along w/ prn DuoNeb; upon discharge he will resume his Stiolto Respimat Does not appear to be in exacerbation. (5) Ischemic cardiomyopathy: Status: Chronic Assessment and plan: as above (6) CAD (coronary artery disease): Status: Chronic Assessment and plan: as above Subjective Subjective Patient reports: no new complaints, feels better, shortness of breath (Improved.) and afebrile; denies nausea or vomiting Exam Narrative Exam Narrative: Morbidly obese white male sitting in chair. Conversant. Neck is short obese difficult to discern JVD Lungs with diffuse bilateral rales heard throughout but more prominent in bases. Heart is regular rate and rhythm no appreciable murmur rub Abdomen obese soft nontender normal bowel sounds. Lower extremities 3+ firm, pitting edema from the feet up to the groin. no cyanosis. pedal pulses intact Groin is examined he has diffuse erythema of the inguinal skin folds. Evaluation of the scrotum shows healing surgical scar over the raphae no purulent drainage no palpable induration Objective Last Vital Signs Temp 36.0 C L 09/18/22 10:15 Pulse 145 H 09/18/22 12:01 Resp 19 09/18/22 12:01 BP 117/84 09/18/22 12:01 Pulse Ox 88 L 09/18/22 12:01 Laboratory Results - last 24 hr 09/17/22 09/17/22 09/17/22 14:59 14:59 15:06 WBC RBC Hgb Hct MCV MCH MCHC RDW Plt Count MPV Immature Gran % Neutrophils % Lymphocytes % Monocytes % Eosinophils % Basophils % Nucleated RBC % Absolute Neutrophils Absolute Lymphocytes Absolute Monocytes Absolute Eosinophils Absolute Basophils PT INR APTT VBG Lactate 3.3 H* Sodium Potassium Chloride Carbon Dioxide Anion Gap BUN Creatinine Est GFR (CKD-EPI 2020) Glucose Hemoglobin A1c Calcium Total Bilirubin AST ALT Alkaline Phosphatase Troponin I 1027 H* Cancelled NT-Pro-B Natriuret Pep Total Protein Albumin Triglycerides Total Cholesterol LDL Cholesterol, Calc HDL Cholesterol Add-On Test Request 09/17/22 09/17/22 09/17/22 16:14 18:03 18:03 WBC RBC Hgb Hct MCV MCH MCHC RDW Plt Count MPV Immature Gran % Neutrophils % Lymphocytes % Monocytes % Eosinophils % Basophils % Nucleated RBC % Absolute Neutrophils Absolute Lymphocytes Absolute Monocytes Absolute Eosinophils Absolute Basophils PT 11.6 H INR 1.1 APTT 25.4 VBG Lactate Sodium 138 Potassium 3.9 Chloride 96 L Carbon Dioxide 37.9 H Anion Gap 4.1 BUN 11 Creatinine 1.1 Est GFR (CKD-EPI 2020) 80.27 Glucose 189 H Hemoglobin A1c Calcium 8.7 Total Bilirubin AST ALT Alkaline Phosphatase Troponin I 995 H* NT-Pro-B Natriuret Pep Total Protein Albumin Triglycerides Total Cholesterol LDL Cholesterol, Calc HDL Cholesterol Add-On Test Request 09/17/22 09/18/22 09/18/22 23:05 06:20 06:20 WBC 20.54 H RBC 4.09 L Hgb 11.3 L D Hct 37.5 L MCV 92 MCH 27.6 MCHC 30.1 L RDW 16.0 H Plt Count 453 H MPV 8.6 Immature Gran % 0.5 Neutrophils % 88.9 Lymphocytes % 5.4 Monocytes % 4.7 Eosinophils % 0.3 Basophils % 0.2 Nucleated RBC % 0.0 Absolute Neutrophils 18.26 H Absolute Lymphocytes 1.11 L Absolute Monocytes 0.97 H Absolute Eosinophils 0.06 Absolute Basophils 0.04 PT INR APTT 27.1 VBG Lactate Sodium 141 Potassium 4.4 Chloride 98 Carbon Dioxide 40.8 H Anion Gap 2.2 L BUN 15 Creatinine 0.9 Est GFR (CKD-EPI 2020) 102.12 Glucose 144 H Hemoglobin A1c Calcium 8.4 L Total Bilirubin 0.4 AST 17 ALT 15 L Alkaline Phosphatase 81 Troponin I NT-Pro-B Natriuret Pep Total Protein 7.6 Albumin 2.4 L Triglycerides 55 Total Cholesterol 95 LDL Cholesterol, Calc 36 HDL Cholesterol 48 Add-On Test Request 09/18/22 09/18/22 09/18/22 06:20 06:20 06:20 WBC RBC Hgb Hct MCV MCH MCHC RDW Plt Count MPV Immature Gran % Neutrophils % Lymphocytes % Monocytes % Eosinophils % Basophils % Nucleated RBC % Absolute Neutrophils Absolute Lymphocytes Absolute Monocytes Absolute Eosinophils Absolute Basophils PT INR APTT 37.9 H VBG Lactate Sodium Potassium Chloride Carbon Dioxide Anion Gap BUN Creatinine Est GFR (CKD-EPI 2020) Glucose Hemoglobin A1c 5.8 H Calcium Total Bilirubin AST ALT Alkaline Phosphatase Troponin I NT-Pro-B Natriuret Pep Total Protein Albumin Triglycerides Total Cholesterol LDL Cholesterol, Calc HDL Cholesterol Add-On Test Request DONE 09/18/22 09/18/22 06:20 10:40 WBC RBC Hgb Hct MCV MCH MCHC RDW Plt Count MPV Immature Gran % Neutrophils % Lymphocytes % Monocytes % Eosinophils % Basophils % Nucleated RBC % Absolute Neutrophils Absolute Lymphocytes Absolute Monocytes Absolute Eosinophils Absolute Basophils PT INR APTT VBG Lactate 3.2 H* Sodium Potassium Chloride Carbon Dioxide Anion Gap BUN Creatinine Est GFR (CKD-EPI 2020) Glucose Hemoglobin A1c Calcium Total Bilirubin AST ALT Alkaline Phosphatase Troponin I 619 H* NT-Pro-B Natriuret Pep 3108 H Total Protein Albumin Triglycerides Total Cholesterol LDL Cholesterol, Calc HDL Cholesterol Add-On Test Request Time Spent with Patient Time Spent with Patient: 35-49 minutes Time was spent: preparing to see the patient(eg.review tests), obtaining and/or reviewing separately otained hiistory, ordering medications,tests, procedures, referring, communicating with other health mall plant caretaker, indepentently interpreting results, counseling the patient and care coordination
--- NOTE | 2022-09-18 15:01 | NUR.NOTE ---
Patient reposes on his back in bed having been dangling his feet for most of this shift.Nursing Note:
--- NOTE | 2022-09-18 15:02 | NUR.NOTE ---
Scrotum is simply red. Clotrimazole is applied.Nursing Note:
[2022-09-18] MEDS: Normal Saline Flush 10 ML SYR IVP ×2 (16:07→23:24)
[2022-09-18] MEDS: Furosemide 40 MG/4 ML VIAL IVP (16:07)
[2022-09-18] MEDS: LORazepam 1 MG TAB PO (16:59)
[2022-09-18] MEDS: Atorvastatin 40 MG TAB 80 MG PO (20:04)
[2022-09-18] MEDS: Ranolazine 500 MG TABCR PO (20:04)
[2022-09-18] MEDS: Magnesium Oxide 400 MG TAB PO (21:10)
[2022-09-18] MEDS: Nicotine 21 MG/24 HR PATCH TD (21:14)
[2022-09-18 23:54] LABS: Legionella Ag Detection Urine Negative (Negative)
[2022-09-19] VITALS (38 sets, daily range): BP systolic 107–204; BP diastolic 50–178; PULSE 74–207; RESP 10–33; TEMP 36.6–38.4; O2SAT 83–95
[2022-09-19] MEDS: Tiotropium/Olodaterol 10 PUFF INHALER 2 PUFF IH (07:24)
[2022-09-19] MEDS: Buprenorphine/Naloxone 12 mg/3 mg FILM 1 EACH SL (08:53)
[2022-09-19] MEDS: Aspirin E.C. 81 MG TABEC PO (08:53)
[2022-09-19] MEDS: Allopurinol 100 MG TAB PO (08:53)
[2022-09-19] MEDS: Citalopram 20 MG TAB PO (08:54)
[2022-09-19] MEDS: busPIRone 15 MG TAB PO ×2 (08:54→20:05)
[2022-09-19] MEDS: CEFEPIME 2 GM in Normal Saline 100 ML IVPB ×2 (08:54→16:47)
[2022-09-19] MEDS: Folic Acid 1 MG TAB 2 MG PO (08:55)
[2022-09-19] MEDS: Furosemide 40 MG/4 ML VIAL IVP ×2 (08:55→15:57)
[2022-09-19] MEDS: Clopidogrel 75 MG TAB PO (08:55)
[2022-09-19] MEDS: Gabapentin 300 MG CAP PO ×3 (08:55→20:04)
[2022-09-19] MEDS: Nicotine 21 MG/24 HR PATCH TD (08:56)
[2022-09-19] MEDS: Normal Saline Flush 10 ML SYR IVP ×5 (08:57→22:22)
[2022-09-19] MEDS: Pantoprazole 40 MG TABCR PO (08:58)
[2022-09-19] MEDS: Ranolazine 500 MG TABCR PO ×2 (08:58→20:05)
--- NOTE | 2022-09-19 09:58 | PHA.REVIEW2 ---
Pharmacy Admission Review - Admission Clinical Review (Last Reviewed 09/17/22 @ 17:12 by Bola Coombs MD) Left thigh pain (Acute) Acute respiratory failure with hypoxia (Acute) Multifocal pneumonia (Acute) Somnolence (Acute) Hypokalemia (Acute) Lactic acidosis (Acute) Thrombocytosis (Acute) Leukocytosis (Acute) CHF exacerbation (Acute) Respiratory failure with hypoxia and hypercapnia (Acute) Cellulitis of leg, left (Acute) AICD (automatic cardioverter/defibrillator) present (Acute) Acute on chronic heart failure with reduced ejection fraction and diastolic dysfunction (Acute) hydromorphone [From Dilaudid] Allergy (Verified 08/19/22 10:14) Resuscitation Status Full Code Height 5 ft 9 in Weight 152.3 kg - Renal Dosing Renal Dosing: BUN 15 mg/dL (7-18) 09/18/22 06:20 Creatinine 0.9 mg/dL (0.70-1.30) 09/18/22 06:20 Medications needing adjustments: Reviewed List of meds needing interventions: eCrCl >100 ml/min - Anticoagulation Anticoagulation: Hgb Cancelled 09/19/22 05:35 Hct Cancelled 09/19/22 05:35 Plt Count Cancelled 09/19/22 05:35 INR 1.1 (0.9-1.1) 09/17/22 16:14 Creatinine 0.9 mg/dL (0.70-1.30) 09/18/22 06:20 DVT Prophylaxis: Reviewed Medications: Aspirin (was on heparin gtt, no further benefit per progress note - continue plavix + ASA) - Opiate Usage Evaluate Pain Scale/Pains Meds: Reviewed (MAT tx with suboxone) Scheduled Bowel Reg ordered if on Opiates?: No (+ large BM today) - Relevant Labs Sodium 141 mmol/L (136-145) 09/18/22 06:20 Potassium 4.4 mmol/L (3.5-5.1) 09/18/22 06:20 Chloride 98 mmol/L (98-107) 09/18/22 06:20 Magnesium 1.8 mg/dL (1.8-2.4) 09/17/22 07:53 Electrolytes, C-Reactive P, ESR: Reviewed - DM Control DM Control: Glucose 144 mg/dL (74-106) H 09/18/22 06:20 Hemoglobin A1c 5.8 % (<5.7) H 09/18/22 06:20 DM Control: Reviewed Insulin Dosing, Diabetic Medication: AIC 5.8, not dx'd with dm so no home meds - will continue to monitor - Cardiac Review Cardiac Review: Troponin I 619 ng/L (<or=60) H* 09/18/22 06:20 NT-Pro-B Natriuret Pep 3108 pg/mL (<300) H 09/18/22 06:20 BP, HR, EF%: Reviewed - Qtc Review If Elevated, List meds needing intervention: QTc 461 on admission - IV to PO Switch IV Medications: Reviewed - Home Meds Home Med List reviewed: Reviewed Relevent Home Meds Not ordered & why?: not ordered: amiodarone, hydralazine, isosorbide, nitro prn, torsemide - Current meds Current Medication Order Review: Reviewed (IVP furosemide ordered, - 2-3 L past 3 days, todays labs are still pending)
[2022-09-19] MEDS: LORazepam 1 MG TAB PO (10:01)
--- NOTE | 2022-09-19 10:07 | W.PM.PROGNOT ---
Date of Service Date of service: 09/19/22 Time of Service: 10:08 Assessment and Plan Assessment and plan (1) Acute on chronic heart failure with reduced ejection fraction and diastolic dysfunction: Status: Acute Assessment and plan: Echo of 04/20/22 demonstrated his LVEF to be preserved at 60 to 65% with apical wall motion abnormality. Historically he has HFrEF w/ prior LVEF 40 TO 45% and hx of VT arrest requiring AICD and 7 prior drug elution stents. Current echo report showed EF of 55% with left ventricular apex and anteroapical segment akinesis. Unclear whether this is primary ACS vs secondary stress induced ischemic troponin leak from his CHF. Troponin trending downward. Continue ASA and Plavix. Pulmonary/Business Relations Manager following. (2) Respiratory failure with hypoxia and hypercapnia: Status: Acute Assessment and plan: He initially was billed as a multifocal pneumonia but it is now more clear that the primary process is CHF. Nevertheless, he recently was hospitalized for cellulitis of his groin and has leukocytosis (may be reactive to his NSTEMI and CHF), I laina continue w/ cefepime pending his blood cultures Lactic acidosis; remain elevated yesterday; pending today. BiPAP at 16/10 with 40% when asleep. O2 goal of > 90%. ABG and overnight oximetry planned when further stabilized; in preparation for qualifying him for a Trilogy. (3) Non-ST elevation [place] (NSTEMI): Status: Inactive Assessment and plan: as above. (4) COPD (chronic obstructive pulmonary disease): Status: Chronic Assessment and plan: Symbicort and Spiriva along w/ prn DuoNeb; upon discharge he will resume his Stiolto Respimat Does not appear to be in exacerbation. (5) Ischemic cardiomyopathy: Status: Chronic Assessment and plan: as above (6) CAD (coronary artery disease): Status: Chronic Assessment and plan: as above Subjective Subjective Patient reports: tolerating a regular diet, shortness of breath (Requiring supplemental O2 per NC) and afebrile Interval history since last seen: He states he is very anxious. The typical home dose of lorazepam 0.5mg BID prn has't been sufficient to control his anxiety. A 1mg dose given yesterday was somewhat more helpful. Exam Narrative Exam Narrative: Morbidly obese white male sitting in chair. Conversant. O2 saturation drops with conversation. Neck is short obese difficult to discern JVD Lungs with diffuse bilateral rales heard throughout but more prominent in bases. Heart is regular rate and rhythm no appreciable murmur rub Abdomen obese soft nontender normal bowel sounds. Lower extremities 3+ firm, pitting edema from the feet up to the groin. no cyanosis. pedal pulses intact Psych: anxious affect. Objective Last Vital Signs Temp 36.6 C 09/19/22 09:12 Pulse 93 H 09/19/22 09:12 Resp 18 09/19/22 09:12 BP 131/79 09/19/22 06:01 Pulse Ox 87 L 09/19/22 09:12 Laboratory Results - last 24 hr 09/18/22 09/18/22 09/19/22 10:40 12:30 05:35 WBC Cancelled RBC Cancelled Hgb Cancelled Hct Cancelled MCV Cancelled MCH Cancelled MCHC Cancelled RDW Cancelled Plt Count Cancelled MPV Cancelled Immature Gran % Cancelled Neutrophils % Cancelled Band Neutrophils % Cancelled Lymphocytes % Cancelled Atypical Lymphs % Cancelled Monocytes % Cancelled Eosinophils % Cancelled Basophils % Cancelled Metamyelocytes % Cancelled Myelocytes % Cancelled Promyelocytes % Cancelled Other Cells % Cancelled Nucleated RBC % Cancelled Absolute Neutrophils Cancelled Absolute Lymphocytes Cancelled Absolute Monocytes Cancelled Absolute Eosinophils Cancelled Absolute Basophils Cancelled RBC Morphology Cancelled Polychromasia Cancelled Hypochromasia Cancelled Poikilocytosis Cancelled Basophilic Stippling Cancelled Anisocytosis Cancelled Microcytosis Cancelled Macrocytosis Cancelled Spherocytes Cancelled Tear Drop Cells Cancelled Ovalocytes Cancelled Stomatocytes Cancelled [place] Bodies Cancelled Dagmar Cells/Echinocytes Cancelled Acanthocytes (Spur) Cancelled Schistocytes Cancelled APTT Cancelled VBG Lactate 3.2 H* Time Spent with Patient Time Spent with Patient: 25-34 minutes Time was spent: preparing to see the patient(eg.review tests), obtaining and/or reviewing separately otained hiistory, ordering medications,tests, procedures, indepentently interpreting results and counseling the patient
[2022-09-19 12:22] LABS: Abs Immature Grans 0.11 10^3/uL (0.0-0.06); Basophils % 0.3; Eosinophils % 0.2; HCT 42.5 % (40.0-50.0); Immature Grans % 0.6; Lymphocytes % 9.2; MCHC 30.6 % (32.0-36.0); MCV 91 fL (80-95); MPV 8.3 fL (8.0-11.0); Monocytes % 5.8; Neutrophils % 83.9; Platelet Count 470 10^3/uL (130-400); RBC 4.65 10^6/uL (4.36-5.78); RDW-SD 53.8 fL; WBC 18.71 10^3/uL (4.4-10.8)
[2022-09-19 12:23] LABS: Absolute Basophil Count 0.06 10^3/uL (0.0-0.2); Absolute Eosinophil Count 0.04 10^3/uL (0.0-0.7); Absolute Lymphocyte Count 1.72 10^3/uL (1.2-3.4); Absolute Monocyte Count 1.09 10^3/uL (0.1-0.8)
[2022-09-19 12:32] LABS: Anion Gap 4.6 mmol/L (3-11); BUN 17 mg/dL (7-18); CO2 39.4 mmol/L (21.0-32.0); CREATININE 0.9 mg/dL (0.70-1.30); Calcium 9.7 mg/dL (8.5-10.1); Chloride 96 mmol/L (98-107); Estimated GFR 102.12 (mL/min/1.73m2); Glucose 102 mg/dL (74-106); Potassium 3.8 mmol/L (3.5-5.1); Sodium 140 mmol/L (136-145)
[2022-09-19 12:34] LABS: Lactate 2.7 mmol/L (0.6-1.4)
--- NOTE | 2022-09-19 12:59 | NUR.NOTE ---
Patient placed back on BIPAP - 40% FIO2 12/6.Nursing Note:
--- NOTE | 2022-09-19 14:54 | NUR.NOTE ---
Transfer from ICU at 1445 via wheel chair accompanied by Farhat Deal and respiratory. Pt on BIPAP . Alert and oriented x3. Pt able to transfer from wheel chair to bed with stand by assist. Nursing Note:
[2022-09-19] MEDS: LORazepam 0.5 MG TAB PO ×3 (15:57→21:50)
[2022-09-19] MEDS: Atorvastatin 40 MG TAB 80 MG PO (20:04)
[2022-09-19] MEDS: Magnesium Oxide 400 MG TAB PO (20:08)
[2022-09-20] VITALS (12 sets, daily range): BP systolic 113–136; BP diastolic 60–72; PULSE 70–103; RESP 10–29; TEMP 36.7–37.5; O2SAT 82–94
[2022-09-20] MEDS: CEFEPIME 2 GM in Normal Saline 100 ML IVPB ×2 (00:17→09:45)
[2022-09-20] MEDS: Normal Saline Flush 10 ML SYR IVP ×3 (00:17→16:11)
[2022-09-20 07:04] LABS: Lactate 0.9 mmol/L (0.6-1.4)
[2022-09-20 07:19] LABS: Anion Gap 0.3 mmol/L (3-11); BUN 15 mg/dL (7-18); CO2 41.7 mmol/L (21.0-32.0); CREATININE 0.8 mg/dL (0.70-1.30); Calcium 9.2 mg/dL (8.5-10.1); Chloride 98 mmol/L (98-107); Estimated GFR 105.82 (mL/min/1.73m2); Glucose 114 mg/dL (74-106); Potassium 3.6 mmol/L (3.5-5.1); Sodium 140 mmol/L (136-145)
[2022-09-20 07:35] LABS: Abs Immature Grans 0.09 10^3/uL (0.0-0.06); Absolute Basophil Count 0.05 10^3/uL (0.0-0.2); Absolute Eosinophil Count 0.17 10^3/uL (0.0-0.7); Absolute Monocyte Count 1.28 10^3/uL (0.1-0.8); Basophils % 0.3; Eosinophils % 1.1; HCT 35.7 % (40.0-50.0); HGB 10.9 g/dL (13.5-17.5); Immature Grans % 0.6; Lymphocytes % 12.9; MCH 27.8 pg (27.0-33.0); MCHC 30.5 % (32.0-36.0); MCV 91 fL (80-95); MPV 8.7 fL (8.0-11.0); Monocytes % 8.4; Neutrophils % 76.7; Platelet Count 411 10^3/uL (130-400); RBC 3.92 10^6/uL (4.36-5.78); RDW 16.1 % (11.8-14.1); WBC 15.23 10^3/uL (4.4-10.8)
[2022-09-20 07:39] LABS: Absolute Lymphocyte Count 1.96 10^3/uL (1.2-3.4); Absolute Neutrophil Count 11.68 10^3/uL (1.2-6.7)
[2022-09-20] MEDS: Tiotropium/Olodaterol 10 PUFF INHALER 2 PUFF IH (08:30)
[2022-09-20] MEDS: Allopurinol 100 MG TAB PO (08:32)
[2022-09-20] MEDS: Furosemide 40 MG/4 ML VIAL IVP ×2 (08:32→16:10)
[2022-09-20] MEDS: Citalopram 20 MG TAB PO (08:33)
[2022-09-20] MEDS: Folic Acid 1 MG TAB 2 MG PO (08:33)
[2022-09-20] MEDS: Clopidogrel 75 MG TAB PO (08:33)
[2022-09-20] MEDS: Aspirin E.C. 81 MG TABEC PO (08:33)
[2022-09-20] MEDS: Pantoprazole 40 MG TABCR PO (08:33)
[2022-09-20] MEDS: Nicotine 21 MG/24 HR PATCH TD (08:37)
[2022-09-20] MEDS: Ranolazine 500 MG TABCR PO ×2 (08:38→20:44)
[2022-09-20] MEDS: Gabapentin 300 MG CAP PO ×3 (08:38→20:43)
[2022-09-20] MEDS: Buprenorphine/Naloxone 12 mg/3 mg FILM 1 EACH SL (08:38)
[2022-09-20] MEDS: busPIRone 15 MG TAB PO ×2 (08:39→20:44)
[2022-09-20] MEDS: LORazepam 0.5 MG TAB PO ×2 (08:41→09:35)
--- NOTE | 2022-09-20 13:05 | W.PM.PROGNOT ---
Date of Service Date of service: 09/20/22 Time of Service: 13:06 Assessment and Plan Assessment and plan (1) Acute on chronic heart failure with reduced ejection fraction and diastolic dysfunction: Status: Acute Assessment and plan: Echo of 04/20/22 demonstrated his LVEF to be preserved at 60 to 65% with apical wall motion abnormality. Historically he has HFrEF w/ prior LVEF 40 TO 45% and hx of VT arrest requiring AICD and 7 prior drug elution stents. Current echo report showed EF of 55% with left ventricular apex and anteroapical segment akinesis. Unclear whether this is primary ACS vs secondary stress induced ischemic troponin leak from his CHF. Troponin trending downward. Continue ASA and Plavix. Pulmonary/Clinical Practice Consultant following. (2) Respiratory failure with hypoxia and hypercapnia: Status: Acute Assessment and plan: He initially was billed as a multifocal pneumonia but it is now more clear that the primary process is CHF. Nevertheless, he recently was hospitalized for cellulitis of his groin and has leukocytosis (may be reactive to his NSTEMI and CHF) Blood cxs negative x 72 hours; d/c cefepime. Lactic acidosis; resolved. BiPAP at 16/10 with 40% when asleep. O2 goal of > 90%. ABG and overnight oximetry planned when further stabilized; in preparation for qualifying him for a Trilogy. (3) Non-ST elevation [place] (NSTEMI): Status: Inactive Assessment and plan: as above. (4) COPD (chronic obstructive pulmonary disease): Status: Chronic Assessment and plan: Symbicort and Spiriva along w/ prn DuoNeb; upon discharge he will resume his Stiolto Respimat Does not appear to be in exacerbation. (5) Ischemic cardiomyopathy: Status: Chronic Assessment and plan: as above (6) CAD (coronary artery disease): Status: Chronic Assessment and plan: as above Subjective Subjective Patient reports: no new complaints, feels better, tolerating a regular diet, shortness of breath and afebrile; denies nausea or vomiting Interval history since last seen: Less anxious this AM. Exam Narrative Exam Narrative: Morbidly obese white male sitting on edge of bed. Conversant. NC in place. Neck is short obese difficult to discern JVD Lungs with diffuse bilateral rales in bases. Heart is regular rate and rhythm no appreciable murmur rub Abdomen obese soft nontender normal bowel sounds. Lower extremities 3+ firm, pitting edema. Psych: Affect appropriate; doesn't appear anxious. Objective Last Vital Signs Temp 37 C 09/20/22 11:16 Pulse 71 09/20/22 11:16 Resp 22 09/20/22 11:16 BP 115/72 09/20/22 11:16 Pulse Ox 91 L 09/20/22 11:16 Laboratory Results - last 24 hr 09/20/22 09/20/22 09/20/22 06:08 06:57 06:57 WBC 15.23 H RBC 3.92 L Hgb 10.9 L D Hct 35.7 L MCV 91 MCH 27.8 MCHC 30.5 L RDW 16.1 H Plt Count 411 H MPV 8.7 Immature Gran % 0.6 Neutrophils % 76.7 Lymphocytes % 12.9 Monocytes % 8.4 Eosinophils % 1.1 Basophils % 0.3 Nucleated RBC % 0.0 Absolute Neutrophils 11.68 H Absolute Lymphocytes 1.96 Absolute Monocytes 1.28 H Absolute Eosinophils 0.17 Absolute Basophils 0.05 VBG Lactate 0.9 Sodium 140 Potassium 3.6 Chloride 98 Carbon Dioxide 41.7 H Anion Gap 0.3 L BUN 15 Creatinine 0.8 Est GFR (CKD-EPI 2020) 105.82 Glucose 114 H Calcium 9.2 Time Spent with Patient Time Spent with Patient: 25-34 minutes Time was spent: preparing to see the patient(eg.review tests), ordering medications,tests, procedures, referring, communicating with other health career and guidance counselor, indepentently interpreting results and counseling the patient
[2022-09-20 13:56] LABS: Streptococcus Pneumoniae Ag, U Negative (Negative)
[2022-09-20] MEDS: LORazepam 1 MG TAB PO ×2 (14:44→20:43)
[2022-09-20] MEDS: Atorvastatin 40 MG TAB 80 MG PO (20:43)
[2022-09-20] MEDS: Magnesium Oxide 400 MG TAB PO (21:41)
[2022-09-21] VITALS (12 sets, daily range): BP systolic 104–125; BP diastolic 63–73; PULSE 62–73; RESP 10–24; TEMP 36.8–37; O2SAT 90–98
[2022-09-21 06:43] LABS: Abs Immature Grans 0.06 10^3/uL (0.0-0.06); Absolute Basophil Count 0.07 10^3/uL (0.0-0.2); Absolute Lymphocyte Count 1.96 10^3/uL (1.2-3.4); Absolute Monocyte Count 1.26 10^3/uL (0.1-0.8); Absolute Neutrophil Count 8.33 10^3/uL (1.2-6.7); Basophils % 0.6; Eosinophils % 5.3; HCT 32.8 % (40.0-50.0); HGB 10.2 g/dL (13.5-17.5); Immature Grans % 0.5; Lymphocytes % 15.9; MCH 28.1 pg (27.0-33.0); MCHC 31.1 % (32.0-36.0); MCV 90 fL (80-95); MPV 8.3 fL (8.0-11.0); Monocytes % 10.2; Neutrophils % 67.5; Platelet Count 326 10^3/uL (130-400); RBC 3.63 10^6/uL (4.36-5.78); RDW 15.7 % (11.8-14.1); RDW-SD 52.4 fL; WBC 12.34 10^3/uL (4.4-10.8)
[2022-09-21 06:48] LABS: Absolute Eosinophil Count 0.65 10^3/uL (0.0-0.7)
--- NOTE | 2022-09-21 07:07 | W.PULMPROG ---
Documented by User: May Hoffman MD 09/22/22 07:14 Assessment and Plan Assessment and plan (1) Respiratory failure with hypoxia and hypercapnia: Status: Acute (2) CHF exacerbation: Status: Acute (3) COPD (chronic obstructive pulmonary disease): Status: Chronic (4) CAD (coronary artery disease): Status: Chronic (5) Morbid obesity: Status: Chronic (6) AICD (automatic cardioverter/defibrillator) present: Status: Acute Assessment and plan: This is a 51 yo man with ischemic CHF s/p AICD, COPD and a recent [facility] hospitalization for cellulitis. Initially, he was thought to have pneumonia/sepsis secondary to COPD exacerbation, acute on chronic hypoxic and hypercapnic respiratory failure and cellulitis. Initial CXR was wet appearing but could not disclude infection. After aggressive diureses his respiratory status and CRX improved. Blood cultures returned negative after 72 hours and abx were stopped. Repeat echo was completed without significantly new findings in comparison to prior studies. EF stable at an estimated 55%. He had an ABG and spirometry completed today which support the diagnosis of OHS. He would benefit from NIV HS upon discharge. He is requiring up to 6lpm of O2 today, continue to wean O2 to keep SpO2 >90%. It is medically necessary and beneficial that Luis receive NIV via Trilogy ADARSH in the home to treat his Chronic Respiratory Failure secondary to COPD with hypoxia and hypercapnia.? Luis experiences frequent on going periods of shortness of breath, lethargy, frequent hospitalizations (currently in-patient) and as a result an overall poor quality of life and his chronic disease process will inevitability worsen.? The Trilogy ADARSH will allow Luis to function at his baseline by treating the underlying chronic disease process causing his shortness of breath that is currently limiting him on a daily basis. A traditional BI-PAP has been tried and failed and patient remained symptomatic. The patient is ventilated with BiPAP and a back up respiratory rate and he remains hypercapnic and with respiratory symptoms. A slightly more advance bi-pap with AVAPS have all been ruled out as they would not be the most effective in managing his current chronic co-morbidities as a long-term plan.. LARA is not a factor in this current chronic DX. The Trilogy ADARSH has multiple setting modes not found in other standard devices this will allow us for 3 different settings, a day time setting, a night time setting and a sick setting for cases of extreme SOB. The Trilogy ADARSH NIV via AVAPS AE mode (AVAPS-AE can only be found in a Respironics Trilogy no other standard devices has the AE option) will be used during the sleeping hours this setting would treat any underlying LARA but also will have the added benefits of meeting her ventilation needs for her other ?Chronic Respiratory Co-Morbidities? including a varying tidal volumes and minute ventilation based on his ideal weight, it will decrease his work of breathing, decreases carbon dioxide retention, increases oxygenation, allowing for a long respiratory time to reduce the effects of flow limitation, air trapping and breath stacking, this will improve his overall quality of life and reduce further hospitalizations that may occur without proper treatment. The patient can also use the secondary mode that is exclusive to the Trilogy ADARSH NIV device called Mouth Piece Ventilation (MPV) this would be used during the daytime waking hours to help with shortness of breath via a mouth piece device. As a treating provider of this patient, it is medically necessary that she use NIV therapy via the Trilogy ADARSH Non-Invasive Ventilator. The Trilogy Adarsh also operates on a battery which will allow for continued usage during power outages which [place] [facility] can be problematic and frequent or medical appointment?s as a lapse in usage or interruption in ventilation may lead to life-threatening consequences, this is extremely important as he will depend on the usage of the equipment on and off threw waking hours in addition to nocturnally for life support. Acute on Chronic Hypoxic and Hypercapnic respiratory failure - CHF exacerbation, OHS, COPD - continue BiPAP at night - O2 sat goal >90% - Qualifies for Trilogy - I will order this for him COPD - spirometry today with restriction - would recommend full PFT's as outpatient - continue Duonebs prn - continue home Stiolto when able - albuterol HFA prn CHF Exacerbaiton - diuresis per hospitalist team - has JACKELYN General Date Of Service Date of service: 09/21/22 Time of Service: 07:07 Reason for Consult: Hypoxic and hypercapnic respiratory failure Subjective 24 Hour Events: Ray has significantly improved with continued BiPAP and diuresis. He has lost around 30lbs and is -13,000L. I think he required AVAPS at night due to his OHS/Restrictive lung disease as well as cardiac disease. I ordered for an ABG and inpatient spirometry this morning, which has been completed. Exam Narrative Exam Narrative: Gen: NAD, normal respiratory effort, obese HENT: PERRL, nasal turbinates normal without erythema or inflammation, moist oral mucosa, Mallampati 2, No LAD or JVD Chest: No respiratory distress, normal appearance of chest, clear to auscultation bilaterally, improved crackles Heart: regular rate and rhythym, no murmurs, rubs or gallops Abdomen: Non-distended, soft, non tender Extremities: No clubbing, + edema, cyanosis, rashes Neuro: AAOx3 , non focal Psych: cooperative, appropriate mental affect Objective Last Vital Signs Temp 37 C 09/21/22 01:18 Pulse 67 09/21/22 01:18 Resp 20 09/21/22 05:35 BP 113/72 09/21/22 01:18 Pulse Ox 98 09/21/22 01:18 Laboratory Results - last 24 hr 09/20/22 09/20/22 09/21/22 06:57 06:57 06:30 WBC 15.23 H 12.34 H RBC 3.92 L 3.63 L Hgb 10.9 L D 10.2 L Hct 35.7 L 32.8 L MCV 91 90 MCH 27.8 28.1 MCHC 30.5 L 31.1 L RDW 16.1 H 15.7 H Plt Count 411 H 326 MPV 8.7 8.3 Immature Gran % 0.6 0.5 Neutrophils % 76.7 67.5 Lymphocytes % 12.9 15.9 Monocytes % 8.4 10.2 Eosinophils % 1.1 5.3 Basophils % 0.3 0.6 Nucleated RBC % 0.0 0.0 Absolute Neutrophils 11.68 H 8.33 H Absolute Lymphocytes 1.96 1.96 Absolute Monocytes 1.28 H 1.26 H Absolute Eosinophils 0.17 0.65 Absolute Basophils 0.05 0.07 Sodium 140 Potassium 3.6 Chloride 98 Carbon Dioxide 41.7 H Anion Gap 0.3 L BUN 15 Creatinine 0.8 Est GFR (CKD-EPI 2020) 105.82 Glucose 114 H Calcium 9.2 Results Medications Medications: Active Medications Generic Name Dose Route Start Last Admin Trade Name Freq PRN Reason Stop Dose Admin Acetaminophen 0 mg 09/17/22 12:02 Acetaminophen 325 Mg Tab PO Q4H PRN PRN Al Hydrox/Mg Hydrox/Simethicone 30 ml 09/17/22 12:02 Mylanta Suspension 30 Ml Cup PO Q2H PRN PRN Albuterol Sulfate 2.5 mg 09/17/22 12:02 Albuterol 2.5 Mg/3 Ml Inh Soln Vial UPD Q2H PRN PRN Albuterol/Ipratropium 3 ml 09/17/22 18:42 Albuterol/Ipratropium 3 Ml Upd Vial UPD Q6H PRN PRN wheezing Allopurinol 100 mg 09/17/22 17:00 09/20/22 08:32 Allopurinol 100 Mg Tab PO 100 mg DAILY ALFREDITO Administration Aspirin 81 mg 09/18/22 08:30 09/20/22 08:33 Aspirin E.C. 81 Mg Tabec PO 81 mg DAILY ALFREDITO Administration Atorvastatin Calcium 80 mg 09/17/22 20:00 09/20/22 20:43 Atorvastatin 40 Mg Tab PO 80 mg QPM ALFREDITO Administration Buprenorphine/Naloxone 1 each 09/19/22 08:30 09/20/22 08:38 Buprenorphine/Naloxone 12 Mg/3 Mg Film SL 1 each DAILY ALFREDITO Administration Buspirone HCl 15 mg 09/17/22 20:00 09/20/22 20:44 Buspirone 15 Mg Tab PO 15 mg BID ALFREDITO Administration Citalopram Hydrobromide 20 mg 09/18/22 08:30 09/20/22 08:33 Citalopram 20 Mg Tab PO 20 mg DAILY ALFREDITO Administration Clopidogrel Bisulfate 75 mg 09/17/22 16:40 09/20/22 08:33 Clopidogrel 75 Mg Tab PO 75 mg DAILY ALFREDITO Administration Clotrimazole 40 gm/ Zinc Oxide 0 gm 09/17/22 20:00 09/20/22 21:41 40 gm/ Vitamin A/Vitamin D 40 TP Not Given gm TID ALFREDITO Device 1 each 09/17/22 17:00 Inhaler, Assist Device DIRECTED [facility] Dimethicone/Zinc Oxide 0 gm 09/17/22 11:57 Branden Protect Cream 142 Gm Tube TP PRN PRN Docusate Sodium 100 mg 09/17/22 12:02 Docusate Sodium 100 Mg Cap PO TID PRN PRN Folic Acid 2 mg 09/18/22 08:30 09/20/22 08:33 Folic Acid 1 Mg Tab PO 2 mg DAILY ALFREDITO Administration Furosemide 40 mg 09/18/22 16:00 09/20/22 16:10 Furosemide 40 Mg/4 Ml Vial IVP 40 mg BID@0800,1600 ALFREDITO Administration Gabapentin 300 mg 09/17/22 20:00 09/20/22 20:43 Gabapentin 300 Mg Cap PO 300 mg TID ALFREDITO Administration Sodium Chloride 500 mls @ 0 mls/hr 09/17/22 12:02 09/17/22 17:42 Saline 500ml Bag IV 1 mls/hr PRN PRN Administration As Directed IV Miscellaneous Supplies 1 each 09/17/22 12:15 Iv Access IV DIRECTED ALFREDITO Lorazepam 1 mg 09/20/22 14:37 09/20/22 20:43 Lorazepam 1 Mg Tab PO 1 mg TID PRN PRN Administration Magnesium Hydroxide 30 ml 09/17/22 12:02 Milk Of Magnesia 30 Ml Cup PO DAILY PRN PRN Magnesium Oxide 400 mg 09/18/22 22:00 09/20/22 21:41 Magnesium Oxide 400 Mg Tab PO 400 mg HS ALFREDITO Administration Nicotine 21 mg 09/19/22 08:30 09/20/22 08:37 Nicotine 21 Mg/24 Hr Patch TD 21 mg DAILY ALFREDITO Administration Pantoprazole Sodium 40 mg 09/17/22 17:00 09/20/22 08:33 Pantoprazole 40 Mg Tabcr PO 40 mg DAILY@0730 ALFREDITO Administration Polyethylene Glycol 17 gm 09/17/22 12:02 Polyethylene Glycol 3350 17 Gm Packet PO DAILY PRN PRN Constipation Potassium Chloride 20 meq 09/21/22 08:30 Potassium Chloride 20 Meq Tabcr PO DAILY ALFREDITO Ranolazine 500 mg 09/18/22 20:00 09/20/22 20:44 Ranolazine 500 Mg Tabcr PO 500 mg BID ALFREDITO Administration Sodium Chloride 0 ml 09/17/22 12:02 09/20/22 16:11 Normal Saline Flush 10 Ml Syr IVP 20 ml PRN PRN Administration Sodium Chloride 44 ml 09/19/22 11:23 Sodium Chloride-Nasal [place]-Adult 44 Ml Btl NS QID PRN PRN Tiotropium [place]/Olodaterol 2 puff 09/18/22 08:30 09/20/22 08:30 Tiotropium/Olodaterol 10 Puff Inhaler IH 2 inh DAILY ALFREDITO Administration Allergies hydromorphone [From Dilaudid] Allergy (Verified 08/19/22 10:14) Labs 09/21/22 06:30 09/21/22 06:30 Labs: 09/17/22 23:30 Nose MRSA Screen - Final 09/17/22 09:50 Blood Blood Culture - Preliminary NO GROWTH 72 HOURS 09/17/22 10:18 Blood Blood Culture - Preliminary NO GROWTH 72 HOURS 09/18/22 16:10 Sputum - Expectorated Sputum Culture - Preliminary Normal Krista Bernice Albicans 09/18/22 16:10 Sputum - Expectorated Gram Stain - Final Laboratory Tests Range/Units 09/17/22 09/17/22 09/17/22 07:53 07:53 07:53 WBC (4.4-10.8) 10^3/uL 14.70 H RBC (4.36-5.78) 10^6/uL 5.02 Hgb (13.5-17.5) g/dL 14.0 Hct (40.0-50.0) % 46.6 MCV (80-95) fL 93 MCH (27.0-33.0) pg 27.9 MCHC (32.0-36.0) % 30.0 L RDW (11.8-14.1) % 15.9 H Plt Count (130-400) 10^3/uL 619 H MPV (8.0-11.0) fL 8.3 Immature Gran % 0.3 Neutrophils % 78.8 Band Neutrophils % Lymphocytes % 12.1 Atypical Lymphs % Monocytes % 2.7 Eosinophils % 5.4 Basophils % 0.7 Metamyelocytes % Myelocytes % Promyelocytes % Other Cells % Nucleated RBC % (0.0-0.3) % 0.0 Absolute Neutrophils (1.2-6.7) 10^3/uL 11.58 H Absolute Lymphocytes (1.2-3.4) 10^3/uL 1.78 Absolute Monocytes (0.1-0.8) 10^3/uL 0.40 Absolute Eosinophils (0.0-0.7) 10^3/uL 0.79 H Absolute Basophils (0.0-0.2) 10^3/uL 0.10 RBC Morphology Polychromasia Hypochromasia Poikilocytosis Basophilic Stippling Anisocytosis Microcytosis Macrocytosis Spherocytes Tear Drop Cells Ovalocytes Stomatocytes [address] Bodies [place] Cells/Echinocytes Acanthocytes (Spur) Schistocytes PT (9.3-11.0) sec INR (0.9-1.1) APTT (21.5-31.9) sec ABG Sample Site ABG pH (7.35-7.45) ABG pCO2 (35-45) mmHg ABG pO2 (80-105) mmHg ABG HCO3 (22-26) mmol/L ABG Total CO2 (23-27) mmol/L ABG O2 Saturation (95-98) % ABG Base Excess (-2-3) mmol/L VBG pH (7.31-7.41) VBG pCO2 (41-51) mmHg VBG pO2 mmHg VBG HCO3 (23-28) mmol/L VBG Total CO2 (24-29) mmol/L VBG O2 Saturation % VBG Base Excess (-2-3) mmol/L VBG Lactate (0.6-1.4) mmol/L 3.3 H* FiO2 % Sodium (136-145) mmol/L 137 Potassium (3.5-5.1) mmol/L 3.3 L Chloride (98-107) mmol/L 95 L Carbon Dioxide (21.0-32.0) mmol/L 38.3 H Anion Gap (3-11) mmol/L 3.7 BUN (7-18) mg/dL 9 Creatinine (0.70-1.30) mg/dL 1.1 Est GFR (CKD-EPI 2020) (mL/min/1.73m2) 80.27 Glucose (74-106) mg/dL 189 H Hemoglobin A1c (<5.7) % Calcium (8.5-10.1) mg/dL 9.2 Magnesium (1.8-2.4) mg/dL 1.8 Total Bilirubin (0.2-1.0) mg/dL 0.4 AST (15-37) U/L 20 ALT (16-63) U/L 25 Alkaline Phosphatase (46-116) U/L 120 H Troponin I (<or=60) ng/L < 50 NT-Pro-B Natriuret Pep (<300) pg/mL 1439 H Total Protein (6.4-8.2) g/dL 9.0 H Albumin (3.4-5.0) g/dL 3.3 L Triglycerides (<150) mg/dL Total Cholesterol (<200) mg/dL LDL Cholesterol, Calc (<100) mg/dL HDL Cholesterol (40-60) mg/dL Procalcitonin ng/mL < 0.1 COVID-19 Source SARS-CoV-2 (PCR) (Negative) Add-On Test Request Range/Units 09/17/22 09/17/22 09/17/22 08:46 10:00 10:48 WBC (4.4-10.8) 10^3/uL RBC (4.36-5.78) 10^6/uL Hgb (13.5-17.5) g/dL Hct (40.0-50.0) % MCV (80-95) fL MCH (27.0-33.0) pg MCHC (32.0-36.0) % RDW (11.8-14.1) % Plt Count (130-400) 10^3/uL MPV (8.0-11.0) fL Immature Gran % Neutrophils % Band Neutrophils % Lymphocytes % Atypical Lymphs % Monocytes % Eosinophils % Basophils % Metamyelocytes % Myelocytes % Promyelocytes % Other Cells % Nucleated RBC % (0.0-0.3) % Absolute Neutrophils (1.2-6.7) 10^3/uL Absolute Lymphocytes (1.2-3.4) 10^3/uL Absolute Monocytes (0.1-0.8) 10^3/uL Absolute Eosinophils (0.0-0.7) 10^3/uL Absolute Basophils (0.0-0.2) 10^3/uL RBC Morphology Polychromasia Hypochromasia Poikilocytosis Basophilic Stippling Anisocytosis Microcytosis Macrocytosis Spherocytes Tear Drop Cells Ovalocytes Stomatocytes [address] Bodies [place] Cells/Echinocytes Acanthocytes (Spur) Schistocytes PT (9.3-11.0) sec INR (0.9-1.1) APTT (21.5-31.9) sec ABG Sample Site Left Radial Left Radial ABG pH (7.35-7.45) 7.27 L 7.27 L ABG pCO2 (35-45) mmHg 83 H* 83 H* ABG pO2 (80-105) mmHg 73 L 68 L ABG HCO3 (22-26) mmol/L 38 H 38 H ABG Total CO2 (23-27) mmol/L 35 H 36 H ABG O2 Saturation (95-98) % 94 L 93 L ABG Base Excess (-2-3) mmol/L 11 H 12 H VBG pH (7.31-7.41) VBG pCO2 (41-51) mmHg VBG pO2 mmHg VBG HCO3 (23-28) mmol/L VBG Total CO2 (24-29) mmol/L VBG O2 Saturation % VBG Base Excess (-2-3) mmol/L VBG Lactate (0.6-1.4) mmol/L FiO2 % 55 Sodium (136-145) mmol/L Potassium (3.5-5.1) mmol/L Chloride (98-107) mmol/L Carbon Dioxide (21.0-32.0) mmol/L Anion Gap (3-11) mmol/L BUN (7-18) mg/dL Creatinine (0.70-1.30) mg/dL Est GFR (CKD-EPI 2020) (mL/min/1.73m2) Glucose (74-106) mg/dL Hemoglobin A1c (<5.7) % Calcium (8.5-10.1) mg/dL Magnesium (1.8-2.4) mg/dL Total Bilirubin (0.2-1.0) mg/dL AST (15-37) U/L ALT (16-63) U/L Alkaline Phosphatase (46-116) U/L Troponin I (<or=60) ng/L 756 H* NT-Pro-B Natriuret Pep (<300) pg/mL Total Protein (6.4-8.2) g/dL Albumin (3.4-5.0) g/dL Triglycerides (<150) mg/dL Total Cholesterol (<200) mg/dL LDL Cholesterol, Calc (<100) mg/dL HDL Cholesterol (40-60) mg/dL Procalcitonin ng/mL COVID-19 Source SARS-CoV-2 (PCR) (Negative) Add-On Test Request Range/Units 09/17/22 09/17/22 09/17/22 11:25 13:45 14:59 WBC (4.4-10.8) 10^3/uL RBC (4.36-5.78) 10^6/uL Hgb (13.5-17.5) g/dL Hct (40.0-50.0) % MCV (80-95) fL MCH (27.0-33.0) pg MCHC (32.0-36.0) % RDW (11.8-14.1) % Plt Count (130-400) 10^3/uL MPV (8.0-11.0) fL Immature Gran % Neutrophils % Band Neutrophils % Lymphocytes % Atypical Lymphs % Monocytes % Eosinophils % Basophils % Metamyelocytes % Myelocytes % Promyelocytes % Other Cells % Nucleated RBC % (0.0-0.3) % Absolute Neutrophils (1.2-6.7) 10^3/uL Absolute Lymphocytes (1.2-3.4) 10^3/uL Absolute Monocytes (0.1-0.8) 10^3/uL Absolute Eosinophils (0.0-0.7) 10^3/uL Absolute Basophils (0.0-0.2) 10^3/uL RBC Morphology Polychromasia Hypochromasia Poikilocytosis Basophilic Stippling Anisocytosis Microcytosis Macrocytosis Spherocytes Tear Drop Cells Ovalocytes Stomatocytes [address] Bodies [place] Cells/Echinocytes Acanthocytes (Spur) Schistocytes PT (9.3-11.0) sec INR (0.9-1.1) APTT (21.5-31.9) sec ABG Sample Site ABG pH (7.35-7.45) ABG pCO2 (35-45) mmHg ABG pO2 (80-105) mmHg ABG HCO3 (22-26) mmol/L ABG Total CO2 (23-27) mmol/L ABG O2 Saturation (95-98) % ABG Base Excess (-2-3) mmol/L VBG pH (7.31-7.41) 7.33 VBG pCO2 (41-51) mmHg 73 H* VBG pO2 mmHg 96 VBG HCO3 (23-28) mmol/L 38 H VBG Total CO2 (24-29) mmol/L 35 H VBG O2 Saturation % 99 VBG Base Excess (-2-3) mmol/L 12 H VBG Lactate (0.6-1.4) mmol/L 3.3 H* FiO2 % Sodium (136-145) mmol/L Potassium (3.5-5.1) mmol/L Chloride (98-107) mmol/L Carbon Dioxide (21.0-32.0) mmol/L Anion Gap (3-11) mmol/L BUN (7-18) mg/dL Creatinine (0.70-1.30) mg/dL Est GFR (CKD-EPI 2020) (mL/min/1.73m2) Glucose (74-106) mg/dL Hemoglobin A1c (<5.7) % Calcium (8.5-10.1) mg/dL Magnesium (1.8-2.4) mg/dL Total Bilirubin (0.2-1.0) mg/dL AST (15-37) U/L ALT (16-63) U/L Alkaline Phosphatase (46-116) U/L Troponin I (<or=60) ng/L NT-Pro-B Natriuret Pep (<300) pg/mL Total Protein (6.4-8.2) g/dL Albumin (3.4-5.0) g/dL Triglycerides (<150) mg/dL Total Cholesterol (<200) mg/dL LDL Cholesterol, Calc (<100) mg/dL HDL Cholesterol (40-60) mg/dL Procalcitonin ng/mL COVID-19 Source Nasal/Nares SARS-CoV-2 (PCR) (Negative) Negative Add-On Test Request Range/Units 09/17/22 09/17/22 09/17/22 14:59 15:06 16:14 WBC (4.4-10.8) 10^3/uL RBC (4.36-5.78) 10^6/uL Hgb (13.5-17.5) g/dL Hct (40.0-50.0) % MCV (80-95) fL MCH (27.0-33.0) pg MCHC (32.0-36.0) % RDW (11.8-14.1) % Plt Count (130-400) 10^3/uL MPV (8.0-11.0) fL Immature Gran % Neutrophils % Band Neutrophils % Lymphocytes % Atypical Lymphs % Monocytes % Eosinophils % Basophils % Metamyelocytes % Myelocytes % Promyelocytes % Other Cells % Nucleated RBC % (0.0-0.3) % Absolute Neutrophils (1.2-6.7) 10^3/uL Absolute Lymphocytes (1.2-3.4) 10^3/uL Absolute Monocytes (0.1-0.8) 10^3/uL Absolute Eosinophils (0.0-0.7) 10^3/uL Absolute Basophils (0.0-0.2) 10^3/uL RBC Morphology Polychromasia Hypochromasia Poikilocytosis Basophilic Stippling Anisocytosis Microcytosis Macrocytosis Spherocytes Tear Drop Cells Ovalocytes Stomatocytes [address] Bodies [place] Cells/Echinocytes Acanthocytes (Spur) Schistocytes PT (9.3-11.0) sec 11.6 H INR (0.9-1.1) 1.1 APTT (21.5-31.9) sec 25.4 ABG Sample Site ABG pH (7.35-7.45) ABG pCO2 (35-45) mmHg ABG pO2 (80-105) mmHg ABG HCO3 (22-26) mmol/L ABG Total CO2 (23-27) mmol/L ABG O2 Saturation (95-98) % ABG Base Excess (-2-3) mmol/L VBG pH (7.31-7.41) VBG pCO2 (41-51) mmHg VBG pO2 mmHg VBG HCO3 (23-28) mmol/L VBG Total CO2 (24-29) mmol/L VBG O2 Saturation % VBG Base Excess (-2-3) mmol/L VBG Lactate (0.6-1.4) mmol/L FiO2 % Sodium (136-145) mmol/L Potassium (3.5-5.1) mmol/L Chloride (98-107) mmol/L Carbon Dioxide (21.0-32.0) mmol/L Anion Gap (3-11) mmol/L BUN (7-18) mg/dL Creatinine (0.70-1.30) mg/dL Est GFR (CKD-EPI 2020) (mL/min/1.73m2) Glucose (74-106) mg/dL Hemoglobin A1c (<5.7) % Calcium (8.5-10.1) mg/dL Magnesium (1.8-2.4) mg/dL Total Bilirubin (0.2-1.0) mg/dL AST (15-37) U/L ALT (16-63) U/L Alkaline Phosphatase (46-116) U/L Troponin I (<or=60) ng/L 1027 H* Cancelled NT-Pro-B Natriuret Pep (<300) pg/mL Total Protein (6.4-8.2) g/dL Albumin (3.4-5.0) g/dL Triglycerides (<150) mg/dL Total Cholesterol (<200) mg/dL LDL Cholesterol, Calc (<100) mg/dL HDL Cholesterol (40-60) mg/dL Procalcitonin ng/mL COVID-19 Source SARS-CoV-2 (PCR) (Negative) Add-On Test Request Range/Units 09/17/22 09/17/22 09/17/22 18:03 18:03 23:05 WBC (4.4-10.8) 10^3/uL RBC (4.36-5.78) 10^6/uL Hgb (13.5-17.5) g/dL Hct (40.0-50.0) % MCV (80-95) fL MCH (27.0-33.0) pg MCHC (32.0-36.0) % RDW (11.8-14.1) % Plt Count (130-400) 10^3/uL MPV (8.0-11.0) fL Immature Gran % Neutrophils % Band Neutrophils % Lymphocytes % Atypical Lymphs % Monocytes % Eosinophils % Basophils % Metamyelocytes % Myelocytes % Promyelocytes % Other Cells % Nucleated RBC % (0.0-0.3) % Absolute Neutrophils (1.2-6.7) 10^3/uL Absolute Lymphocytes (1.2-3.4) 10^3/uL Absolute Monocytes (0.1-0.8) 10^3/uL Absolute Eosinophils (0.0-0.7) 10^3/uL Absolute Basophils (0.0-0.2) 10^3/uL RBC Morphology Polychromasia Hypochromasia Poikilocytosis Basophilic Stippling Anisocytosis Microcytosis Macrocytosis Spherocytes Tear Drop Cells Ovalocytes Stomatocytes [address] Bodies [place] Cells/Echinocytes Acanthocytes (Spur) Schistocytes PT (9.3-11.0) sec INR (0.9-1.1) APTT (21.5-31.9) sec 27.1 ABG Sample Site ABG pH (7.35-7.45) ABG pCO2 (35-45) mmHg ABG pO2 (80-105) mmHg ABG HCO3 (22-26) mmol/L ABG Total CO2 (23-27) mmol/L ABG O2 Saturation (95-98) % ABG Base Excess (-2-3) mmol/L VBG pH (7.31-7.41) VBG pCO2 (41-51) mmHg VBG pO2 mmHg VBG HCO3 (23-28) mmol/L VBG Total CO2 (24-29) mmol/L VBG O2 Saturation % VBG Base Excess (-2-3) mmol/L VBG Lactate (0.6-1.4) mmol/L FiO2 % Sodium (136-145) mmol/L 138 Potassium (3.5-5.1) mmol/L 3.9 Chloride (98-107) mmol/L 96 L Carbon Dioxide (21.0-32.0) mmol/L 37.9 H Anion Gap (3-11) mmol/L 4.1 BUN (7-18) mg/dL 11 Creatinine (0.70-1.30) mg/dL 1.1 Est GFR (CKD-EPI 2020) (mL/min/1.73m2) 80.27 Glucose (74-106) mg/dL 189 H Hemoglobin A1c (<5.7) % Calcium (8.5-10.1) mg/dL 8.7 Magnesium (1.8-2.4) mg/dL Total Bilirubin (0.2-1.0) mg/dL AST (15-37) U/L ALT (16-63) U/L Alkaline Phosphatase (46-116) U/L Troponin I (<or=60) ng/L 995 H* NT-Pro-B Natriuret Pep (<300) pg/mL Total Protein (6.4-8.2) g/dL Albumin (3.4-5.0) g/dL Triglycerides (<150) mg/dL Total Cholesterol (<200) mg/dL LDL Cholesterol, Calc (<100) mg/dL HDL Cholesterol (40-60) mg/dL Procalcitonin ng/mL COVID-19 Source SARS-CoV-2 (PCR) (Negative) Add-On Test Request Range/Units 09/18/22 09/18/22 09/18/22 06:20 06:20 06:20 WBC (4.4-10.8) 10^3/uL 20.54 H RBC (4.36-5.78) 10^6/uL 4.09 L Hgb (13.5-17.5) g/dL 11.3 L D Hct (40.0-50.0) % 37.5 L MCV (80-95) fL 92 MCH (27.0-33.0) pg 27.6 MCHC (32.0-36.0) % 30.1 L RDW (11.8-14.1) % 16.0 H Plt Count (130-400) 10^3/uL 453 H MPV (8.0-11.0) fL 8.6 Immature Gran % 0.5 Neutrophils % 88.9 Band Neutrophils % Lymphocytes % 5.4 Atypical Lymphs % Monocytes % 4.7 Eosinophils % 0.3 Basophils % 0.2 Metamyelocytes % Myelocytes % Promyelocytes % Other Cells % Nucleated RBC % (0.0-0.3) % 0.0 Absolute Neutrophils (1.2-6.7) 10^3/uL 18.26 H Absolute Lymphocytes (1.2-3.4) 10^3/uL 1.11 L Absolute Monocytes (0.1-0.8) 10^3/uL 0.97 H Absolute Eosinophils (0.0-0.7) 10^3/uL 0.06 Absolute Basophils (0.0-0.2) 10^3/uL 0.04 RBC Morphology Polychromasia Hypochromasia Poikilocytosis Basophilic Stippling Anisocytosis Microcytosis Macrocytosis Spherocytes Tear Drop Cells Ovalocytes Stomatocytes [address] Bodies Dagmar Cells/Echinocytes Acanthocytes (Spur) Schistocytes PT (9.3-11.0) sec INR (0.9-1.1) APTT (21.5-31.9) sec ABG Sample Site ABG pH (7.35-7.45) ABG pCO2 (35-45) mmHg ABG pO2 (80-105) mmHg ABG HCO3 (22-26) mmol/L ABG Total CO2 (23-27) mmol/L ABG O2 Saturation (95-98) % ABG Base Excess (-2-3) mmol/L VBG pH (7.31-7.41) VBG pCO2 (41-51) mmHg VBG pO2 mmHg VBG HCO3 (23-28) mmol/L VBG Total CO2 (24-29) mmol/L VBG O2 Saturation % VBG Base Excess (-2-3) mmol/L VBG Lactate (0.6-1.4) mmol/L FiO2 % Sodium (136-145) mmol/L 141 Potassium (3.5-5.1) mmol/L 4.4 Chloride (98-107) mmol/L 98 Carbon Dioxide (21.0-32.0) mmol/L 40.8 H Anion Gap (3-11) mmol/L 2.2 L BUN (7-18) mg/dL 15 Creatinine (0.70-1.30) mg/dL 0.9 Est GFR (CKD-EPI 2020) (mL/min/1.73m2) 102.12 Glucose (74-106) mg/dL 144 H Hemoglobin A1c (<5.7) % 5.8 H Calcium (8.5-10.1) mg/dL 8.4 L Magnesium (1.8-2.4) mg/dL Total Bilirubin (0.2-1.0) mg/dL 0.4 AST (15-37) U/L 17 ALT (16-63) U/L 15 L Alkaline Phosphatase (46-116) U/L 81 Troponin I (<or=60) ng/L NT-Pro-B Natriuret Pep (<300) pg/mL Total Protein (6.4-8.2) g/dL 7.6 Albumin (3.4-5.0) g/dL 2.4 L Triglycerides (<150) mg/dL 55 Total Cholesterol (<200) mg/dL 95 LDL Cholesterol, Calc (<100) mg/dL 36 HDL Cholesterol (40-60) mg/dL 48 Procalcitonin ng/mL COVID-19 Source SARS-CoV-2 (PCR) (Negative) Add-On Test Request Range/Units 09/18/22 09/18/22 09/18/22 06:20 06:20 06:20 WBC (4.4-10.8) 10^3/uL RBC (4.36-5.78) 10^6/uL Hgb (13.5-17.5) g/dL Hct (40.0-50.0) % MCV (80-95) fL MCH (27.0-33.0) pg MCHC (32.0-36.0) % RDW (11.8-14.1) % Plt Count (130-400) 10^3/uL MPV (8.0-11.0) fL Immature Gran % Neutrophils % Band Neutrophils % Lymphocytes % Atypical Lymphs % Monocytes % Eosinophils % Basophils % Metamyelocytes % Myelocytes % Promyelocytes % Other Cells % Nucleated RBC % (0.0-0.3) % Absolute Neutrophils (1.2-6.7) 10^3/uL Absolute Lymphocytes (1.2-3.4) 10^3/uL Absolute Monocytes (0.1-0.8) 10^3/uL Absolute Eosinophils (0.0-0.7) 10^3/uL Absolute Basophils (0.0-0.2) 10^3/uL RBC Morphology Polychromasia Hypochromasia Poikilocytosis Basophilic Stippling Anisocytosis Microcytosis Macrocytosis Spherocytes Tear Drop Cells Ovalocytes Stomatocytes [address] Bodies [place] Cells/Echinocytes Acanthocytes (Spur) Schistocytes PT (9.3-11.0) sec INR (0.9-1.1) APTT (21.5-31.9) sec 37.9 H ABG Sample Site ABG pH (7.35-7.45) ABG pCO2 (35-45) mmHg ABG pO2 (80-105) mmHg ABG HCO3 (22-26) mmol/L ABG Total CO2 (23-27) mmol/L ABG O2 Saturation (95-98) % ABG Base Excess (-2-3) mmol/L VBG pH (7.31-7.41) VBG pCO2 (41-51) mmHg VBG pO2 mmHg VBG HCO3 (23-28) mmol/L VBG Total CO2 (24-29) mmol/L VBG O2 Saturation % VBG Base Excess (-2-3) mmol/L VBG Lactate (0.6-1.4) mmol/L FiO2 % Sodium (136-145) mmol/L Potassium (3.5-5.1) mmol/L Chloride (98-107) mmol/L Carbon Dioxide (21.0-32.0) mmol/L Anion Gap (3-11) mmol/L BUN (7-18) mg/dL Creatinine (0.70-1.30) mg/dL Est GFR (CKD-EPI 2020) (mL/min/1.73m2) Glucose (74-106) mg/dL Hemoglobin A1c (<5.7) % Calcium (8.5-10.1) mg/dL Magnesium (1.8-2.4) mg/dL Total Bilirubin (0.2-1.0) mg/dL AST (15-37) U/L ALT (16-63) U/L Alkaline Phosphatase (46-116) U/L Troponin I (<or=60) ng/L 619 H* NT-Pro-B Natriuret Pep (<300) pg/mL 3108 H Total Protein (6.4-8.2) g/dL Albumin (3.4-5.0) g/dL Triglycerides (<150) mg/dL Total Cholesterol (<200) mg/dL LDL Cholesterol, Calc (<100) mg/dL HDL Cholesterol (40-60) mg/dL Procalcitonin ng/mL COVID-19 Source SARS-CoV-2 (PCR) (Negative) Add-On Test Request DONE Range/Units 09/18/22 09/18/22 09/19/22 10:40 12:30 05:35 WBC (4.4-10.8) 10^3/uL Cancelled RBC (4.36-5.78) 10^6/uL Cancelled Hgb (13.5-17.5) g/dL Cancelled Hct (40.0-50.0) % Cancelled MCV (80-95) fL Cancelled MCH (27.0-33.0) pg Cancelled MCHC (32.0-36.0) % Cancelled RDW (11.8-14.1) % Cancelled Plt Count (130-400) 10^3/uL Cancelled MPV (8.0-11.0) fL Cancelled Immature Gran % Cancelled Neutrophils % Cancelled Band Neutrophils % Cancelled Lymphocytes % Cancelled Atypical Lymphs % Cancelled Monocytes % Cancelled Eosinophils % Cancelled Basophils % Cancelled Metamyelocytes % Cancelled Myelocytes % Cancelled Promyelocytes % Cancelled Other Cells % Cancelled Nucleated RBC % (0.0-0.3) % Cancelled Absolute Neutrophils (1.2-6.7) 10^3/uL Cancelled Absolute Lymphocytes (1.2-3.4) 10^3/uL Cancelled Absolute Monocytes (0.1-0.8) 10^3/uL Cancelled Absolute Eosinophils (0.0-0.7) 10^3/uL Cancelled Absolute Basophils (0.0-0.2) 10^3/uL Cancelled RBC Morphology Cancelled Polychromasia Cancelled Hypochromasia Cancelled Poikilocytosis Cancelled Basophilic Stippling Cancelled Anisocytosis Cancelled Microcytosis Cancelled Macrocytosis Cancelled Spherocytes Cancelled Tear Drop Cells Cancelled Ovalocytes Cancelled Stomatocytes Cancelled [address] Bodies Cancelled [place] Cells/Echinocytes Cancelled Acanthocytes (Spur) Cancelled Schistocytes Cancelled PT (9.3-11.0) sec INR (0.9-1.1) APTT (21.5-31.9) sec Cancelled ABG Sample Site ABG pH (7.35-7.45) ABG pCO2 (35-45) mmHg ABG pO2 (80-105) mmHg ABG HCO3 (22-26) mmol/L ABG Total CO2 (23-27) mmol/L ABG O2 Saturation (95-98) % ABG Base Excess (-2-3) mmol/L VBG pH (7.31-7.41) VBG pCO2 (41-51) mmHg VBG pO2 mmHg VBG HCO3 (23-28) mmol/L VBG Total CO2 (24-29) mmol/L VBG O2 Saturation % VBG Base Excess (-2-3) mmol/L VBG Lactate (0.6-1.4) mmol/L 3.2 H* FiO2 % Sodium (136-145) mmol/L Potassium (3.5-5.1) mmol/L Chloride (98-107) mmol/L Carbon Dioxide (21.0-32.0) mmol/L Anion Gap (3-11) mmol/L BUN (7-18) mg/dL Creatinine (0.70-1.30) mg/dL Est GFR (CKD-EPI 2020) (mL/min/1.73m2) Glucose (74-106) mg/dL Hemoglobin A1c (<5.7) % Calcium (8.5-10.1) mg/dL Magnesium (1.8-2.4) mg/dL Total Bilirubin (0.2-1.0) mg/dL AST (15-37) U/L ALT (16-63) U/L Alkaline Phosphatase (46-116) U/L Troponin I (<or=60) ng/L NT-Pro-B Natriuret Pep (<300) pg/mL Total Protein (6.4-8.2) g/dL Albumin (3.4-5.0) g/dL Triglycerides (<150) mg/dL Total Cholesterol (<200) mg/dL LDL Cholesterol, Calc (<100) mg/dL HDL Cholesterol (40-60) mg/dL Procalcitonin ng/mL COVID-19 Source SARS-CoV-2 (PCR) (Negative) Add-On Test Request Range/Units 09/19/22 09/19/22 09/19/22 12:03 12:03 12:03 WBC (4.4-10.8) 10^3/uL 18.71 H RBC (4.36-5.78) 10^6/uL 4.65 Hgb (13.5-17.5) g/dL 13.0 L Hct (40.0-50.0) % 42.5 MCV (80-95) fL 91 MCH (27.0-33.0) pg 28.0 MCHC (32.0-36.0) % 30.6 L RDW (11.8-14.1) % 16.0 H Plt Count (130-400) 10^3/uL 470 H MPV (8.0-11.0) fL 8.3 Immature Gran % 0.6 Neutrophils % 83.9 Band Neutrophils % Lymphocytes % 9.2 Atypical Lymphs % Monocytes % 5.8 Eosinophils % 0.2 Basophils % 0.3 Metamyelocytes % Myelocytes % Promyelocytes % Other Cells % Nucleated RBC % (0.0-0.3) % 0.0 Absolute Neutrophils (1.2-6.7) 10^3/uL 15.70 H Absolute Lymphocytes (1.2-3.4) 10^3/uL 1.72 Absolute Monocytes (0.1-0.8) 10^3/uL 1.09 H Absolute Eosinophils (0.0-0.7) 10^3/uL 0.04 Absolute Basophils (0.0-0.2) 10^3/uL 0.06 RBC Morphology Polychromasia Hypochromasia Poikilocytosis Basophilic Stippling Anisocytosis Microcytosis Macrocytosis Spherocytes Tear Drop Cells Ovalocytes Stomatocytes [address] Bodies [place] Cells/Echinocytes Acanthocytes (Spur) Schistocytes PT (9.3-11.0) sec INR (0.9-1.1) APTT (21.5-31.9) sec ABG Sample Site ABG pH (7.35-7.45) ABG pCO2 (35-45) mmHg ABG pO2 (80-105) mmHg ABG HCO3 (22-26) mmol/L ABG Total CO2 (23-27) mmol/L ABG O2 Saturation (95-98) % ABG Base Excess (-2-3) mmol/L VBG pH (7.31-7.41) VBG pCO2 (41-51) mmHg VBG pO2 mmHg VBG HCO3 (23-28) mmol/L VBG Total CO2 (24-29) mmol/L VBG O2 Saturation % VBG Base Excess (-2-3) mmol/L VBG Lactate (0.6-1.4) mmol/L 2.7 H* FiO2 % Sodium (136-145) mmol/L 140 Potassium (3.5-5.1) mmol/L 3.8 Chloride (98-107) mmol/L 96 L Carbon Dioxide (21.0-32.0) mmol/L 39.4 H Anion Gap (3-11) mmol/L 4.6 BUN (7-18) mg/dL 17 Creatinine (0.70-1.30) mg/dL 0.9 Est GFR (CKD-EPI 2020) (mL/min/1.73m2) 102.12 Glucose (74-106) mg/dL 102 Hemoglobin A1c (<5.7) % Calcium (8.5-10.1) mg/dL 9.7 Magnesium (1.8-2.4) mg/dL Total Bilirubin (0.2-1.0) mg/dL AST (15-37) U/L ALT (16-63) U/L Alkaline Phosphatase (46-116) U/L Troponin I (<or=60) ng/L NT-Pro-B Natriuret Pep (<300) pg/mL Total Protein (6.4-8.2) g/dL Albumin (3.4-5.0) g/dL Triglycerides (<150) mg/dL Total Cholesterol (<200) mg/dL LDL Cholesterol, Calc (<100) mg/dL HDL Cholesterol (40-60) mg/dL Procalcitonin ng/mL COVID-19 Source SARS-CoV-2 (PCR) (Negative) Add-On Test Request Range/Units 09/20/22 09/20/22 09/20/22 06:08 06:57 06:57 WBC (4.4-10.8) 10^3/uL 15.23 H RBC (4.36-5.78) 10^6/uL 3.92 L Hgb (13.5-17.5) g/dL 10.9 L D Hct (40.0-50.0) % 35.7 L MCV (80-95) fL 91 MCH (27.0-33.0) pg 27.8 MCHC (32.0-36.0) % 30.5 L RDW (11.8-14.1) % 16.1 H Plt Count (130-400) 10^3/uL 411 H MPV (8.0-11.0) fL 8.7 Immature Gran % 0.6 Neutrophils % 76.7 Band Neutrophils % Lymphocytes % 12.9 Atypical Lymphs % Monocytes % 8.4 Eosinophils % 1.1 Basophils % 0.3 Metamyelocytes % Myelocytes % Promyelocytes % Other Cells % Nucleated RBC % (0.0-0.3) % 0.0 Absolute Neutrophils (1.2-6.7) 10^3/uL 11.68 H Absolute Lymphocytes (1.2-3.4) 10^3/uL 1.96 Absolute Monocytes (0.1-0.8) 10^3/uL 1.28 H Absolute Eosinophils (0.0-0.7) 10^3/uL 0.17 Absolute Basophils (0.0-0.2) 10^3/uL 0.05 RBC Morphology Polychromasia Hypochromasia Poikilocytosis Basophilic Stippling Anisocytosis Microcytosis Macrocytosis Spherocytes Tear Drop Cells Ovalocytes Stomatocytes [address] Bodies [place] Cells/Echinocytes Acanthocytes (Spur) Schistocytes PT (9.3-11.0) sec INR (0.9-1.1) APTT (21.5-31.9) sec ABG Sample Site ABG pH (7.35-7.45) ABG pCO2 (35-45) mmHg ABG pO2 (80-105) mmHg ABG HCO3 (22-26) mmol/L ABG Total CO2 (23-27) mmol/L ABG O2 Saturation (95-98) % ABG Base Excess (-2-3) mmol/L VBG pH (7.31-7.41) VBG pCO2 (41-51) mmHg VBG pO2 mmHg VBG HCO3 (23-28) mmol/L VBG Total CO2 (24-29) mmol/L VBG O2 Saturation % VBG Base Excess (-2-3) mmol/L VBG Lactate (0.6-1.4) mmol/L 0.9 FiO2 % Sodium (136-145) mmol/L 140 Potassium (3.5-5.1) mmol/L 3.6 Chloride (98-107) mmol/L 98 Carbon Dioxide (21.0-32.0) mmol/L 41.7 H Anion Gap (3-11) mmol/L 0.3 L BUN (7-18) mg/dL 15 Creatinine (0.70-1.30) mg/dL 0.8 Est GFR (CKD-EPI 2020) (mL/min/1.73m2) 105.82 Glucose (74-106) mg/dL 114 H Hemoglobin A1c (<5.7) % Calcium (8.5-10.1) mg/dL 9.2 Magnesium (1.8-2.4) mg/dL Total Bilirubin (0.2-1.0) mg/dL AST (15-37) U/L ALT (16-63) U/L Alkaline Phosphatase (46-116) U/L Troponin I (<or=60) ng/L NT-Pro-B Natriuret Pep (<300) pg/mL Total Protein (6.4-8.2) g/dL Albumin (3.4-5.0) g/dL Triglycerides (<150) mg/dL Total Cholesterol (<200) mg/dL LDL Cholesterol, Calc (<100) mg/dL HDL Cholesterol (40-60) mg/dL Procalcitonin ng/mL COVID-19 Source SARS-CoV-2 (PCR) (Negative) Add-On Test Request Range/Units 09/21/22 06:30 WBC (4.4-10.8) 10^3/uL 12.34 H RBC (4.36-5.78) 10^6/uL 3.63 L Hgb (13.5-17.5) g/dL 10.2 L Hct (40.0-50.0) % 32.8 L MCV (80-95) fL 90 MCH (27.0-33.0) pg 28.1 MCHC (32.0-36.0) % 31.1 L RDW (11.8-14.1) % 15.7 H Plt Count (130-400) 10^3/uL 326 MPV (8.0-11.0) fL 8.3 Immature Gran % 0.5 Neutrophils % 67.5 Band Neutrophils % Lymphocytes % 15.9 Atypical Lymphs % Monocytes % 10.2 Eosinophils % 5.3 Basophils % 0.6 Metamyelocytes % Myelocytes % Promyelocytes % Other Cells % Nucleated RBC % (0.0-0.3) % 0.0 Absolute Neutrophils (1.2-6.7) 10^3/uL 8.33 H Absolute Lymphocytes (1.2-3.4) 10^3/uL 1.96 Absolute Monocytes (0.1-0.8) 10^3/uL 1.26 H Absolute Eosinophils (0.0-0.7) 10^3/uL 0.65 Absolute Basophils (0.0-0.2) 10^3/uL 0.07 RBC Morphology Polychromasia Hypochromasia Poikilocytosis Basophilic Stippling Anisocytosis Microcytosis Macrocytosis Spherocytes Tear Drop Cells Ovalocytes Stomatocytes [address] Bodies [place] Cells/Echinocytes Acanthocytes (Spur) Schistocytes PT (9.3-11.0) sec INR (0.9-1.1) APTT (21.5-31.9) sec ABG Sample Site ABG pH (7.35-7.45) ABG pCO2 (35-45) mmHg ABG pO2 (80-105) mmHg ABG HCO3 (22-26) mmol/L ABG Total CO2 (23-27) mmol/L ABG O2 Saturation (95-98) % ABG Base Excess (-2-3) mmol/L VBG pH (7.31-7.41) VBG pCO2 (41-51) mmHg VBG pO2 mmHg VBG HCO3 (23-28) mmol/L VBG Total CO2 (24-29) mmol/L VBG O2 Saturation % VBG Base Excess (-2-3) mmol/L VBG Lactate (0.6-1.4) mmol/L FiO2 % Sodium (136-145) mmol/L Potassium (3.5-5.1) mmol/L Chloride (98-107) mmol/L Carbon Dioxide (21.0-32.0) mmol/L Anion Gap (3-11) mmol/L BUN (7-18) mg/dL Creatinine (0.70-1.30) mg/dL Est GFR (CKD-EPI 2020) (mL/min/1.73m2) Glucose (74-106) mg/dL Hemoglobin A1c (<5.7) % Calcium (8.5-10.1) mg/dL Magnesium (1.8-2.4) mg/dL Total Bilirubin (0.2-1.0) mg/dL AST (15-37) U/L ALT (16-63) U/L Alkaline Phosphatase (46-116) U/L Troponin I (<or=60) ng/L NT-Pro-B Natriuret Pep (<300) pg/mL Total Protein (6.4-8.2) g/dL Albumin (3.4-5.0) g/dL Triglycerides (<150) mg/dL Total Cholesterol (<200) mg/dL LDL Cholesterol, Calc (<100) mg/dL HDL Cholesterol (40-60) mg/dL Procalcitonin ng/mL COVID-19 Source SARS-CoV-2 (PCR) (Negative) Add-On Test Request Documented by User: SHERINE Zuniga 09/21/22 15:18 Assessment and Plan Assessment and plan (1) Respiratory failure with hypoxia and hypercapnia: Status: Acute (2) CHF exacerbation: Status: Acute (3) COPD (chronic obstructive pulmonary disease): Status: Chronic (4) CAD (coronary artery disease): Status: Chronic (5) Morbid obesity: Status: Chronic (6) AICD (automatic cardioverter/defibrillator) present: Status: Acute Assessment and plan: This is a 51 yo man with ischemic CHF s/p AICD, COPD and a recent [facility] hospitalization for cellulitis. Initially, he was thought to have pneumonia/sepsis secondary to COPD exacerbation, acute on chronic hypoxic and hypercapnic respiratory failure and cellulitis. Initial CXR was wet appearing but could not disclude infection. After aggressive diureses his respiratory status and CRX improved. Blood cultures returned negative after 72 hours and abx were stopped. Repeat echo was completed without significantly new findings in comparison to prior studies. EF stable at an estimated 55%. He had an ABG and spirometry completed today which support the diagnosis of OHS. He would benefit from NIV HS upon discharge. He is requiring up to 6lpm of O2 today, continue to wean O2 to keep SpO2 >90% Pulmonary: Acute on Chronic Hypoxic and Hypercapnic respiratory failure - CHF exacerbation, OHS, COPD - continue BiPAP, settings weaned to 16/10 at 40% - O2 sat goal >90% - recommend diuresis as below - Trilogy qualification - ABG (completed), inpatient spirometry (completed), overnight oximetry COPD - spirometry today with restriction - would recommend full PFT's as outpatient - continue Duonebs prn - continue home Stiolto when able - albuterol HFA prn Cardiac: CHF Exacerbaiton - continue lasix BID to maintain successful diuresis - has AICD Renal: Lactic acidosis - resolved Hypokalemia - continues to be low, provide supplement - goal 4.0 It is medically necessary and beneficial that Luis receive NIV via Trilogy ADARSH in the home to treat his Chronic Respiratory Failure secondary to COPD with hypoxia and hypercapnia.? Luis experiences frequent on going periods of shortness of breath, lethargy, frequent hospitalizations (currently in-patient) and as a result an overall poor quality of life and his chronic disease process will inevitability worsen.? The Trilogy ADARSH will allow Luis to function at his baseline by treating the underlying chronic disease process causing his shortness of breath that is currently limiting him on a daily basis. A traditional BI-PAP has been tried and failed and patient remained symptomatic. The patient is ventilated with BiPAP and a back up respiratory rate and he remains hypercapnic and with respiratory symptoms. A slightly more advance bi-pap with AVAPS have all been ruled out as they would not be the most effective in managing his current chronic co-morbidities as a long-term plan.. LARA is not a factor in this current chronic DX. The Trilogy ADARSH has multiple setting modes not found in other standard devices this will allow us for 3 different settings, a day time setting, a night time setting and a sick setting for cases of extreme SOB. The Trilogy ADARSH NIV via AVAPS AE mode (AVAPS-AE can only be found in a Respironics Trilogy no other standard devices has the AE option) will be used during the sleeping hours this setting would treat any underlying LARA but also will have the added benefits of meeting her ventilation needs for her other ?Chronic Respiratory Co-Morbidities? including a varying tidal volumes and minute ventilation based on his ideal weight, it will decrease his work of breathing, decreases carbon dioxide retention, increases oxygenation, allowing for a long respiratory time to reduce the effects of flow limitation, air trapping and breath stacking, this will improve his overall quality of life and reduce further hospitalizations that may occur without proper treatment. The patient can also use the secondary mode that is exclusive to the Trilogy ADARSH NIV device called Mouth Piece Ventilation (MPV) this would be used during the daytime waking hours to help with shortness of breath via a mouth piece device. As a treating provider of this patient, it is medically necessary that she use NIV therapy via the Trilogy ADARSH Non-Invasive Ventilator. The Trilogy Adarsh also operates on a battery which will allow for continued usage during power outages which [place] [facility] can be problematic and frequent or medical appointment?s as a lapse in usage or interruption in ventilation may lead to life-threatening consequences, this is extremely important as he will depend on the usage of the equipment on and off threw waking hours in addition to nocturnally for life support. Subjective 24 Hour Events: Ray has significantly improved with continued BiPAP and diuresis. He has lost around 30lbs and is -13,000L. I think he required AVAPS at night due to his OHS/Restrictive lung disease as well as cardiac disease. I ordered for an ABG and inpatient spirometry this morning, which has been completed. He also had spirometry completed. Exam Resp Effort & Inspection: normal respiratory effort, able to speak in complete sentences and not labored Auscultation: rales bilaterally at the base, no rhonchi and no wheezes Cardio Rate: regular rate Rhythm: regular rhythm Heart Sounds: S1 normal, S2 normal, no gallops, no murmurs and no rubs Results Labs 09/21/22 06:30 09/21/22 06:30
[2022-09-21 07:11] LABS: Anion Gap -0.3 mmol/L (3-11); BUN 13 mg/dL (7-18); CO2 43.3 mmol/L (21.0-32.0); CREATININE 0.8 mg/dL (0.70-1.30); Calcium 8.8 mg/dL (8.5-10.1); Chloride 97 mmol/L (98-107); Estimated GFR 105.82 (mL/min/1.73m2); Glucose 112 mg/dL (74-106); NT-proBNP 1203 pg/mL (<300); Potassium 3.4 mmol/L (3.5-5.1); Sodium 140 mmol/L (136-145)
[2022-09-21] MEDS: Tiotropium/Olodaterol 10 PUFF INHALER 2 PUFF IH (07:34)
[2022-09-21 08:09] LABS: HCO3 44 mmol/L (22-26); pH 7.44 (7.35-7.45); pO2 51 mmHg (80-105); sO2 89 % (95-98); tCO2 41 mmol/L (23-27)
[2022-09-21 08:12] LABS: BE > 15 mmol/L (-2-3); FIO2L 6 L; Site Left Radial
[2022-09-21 08:13] LABS: pCO2 66 mmHg (35-45)
[2022-09-21] MEDS: Nicotine 21 MG/24 HR PATCH TD (08:21)
[2022-09-21] MEDS: Buprenorphine/Naloxone 12 mg/3 mg FILM 1 EACH SL (08:21)
[2022-09-21] MEDS: Pantoprazole 40 MG TABCR PO (08:29)
[2022-09-21] MEDS: Ranolazine 500 MG TABCR PO ×2 (08:29→20:17)
[2022-09-21] MEDS: Folic Acid 1 MG TAB 2 MG PO (08:29)
[2022-09-21] MEDS: Clopidogrel 75 MG TAB PO (08:29)
[2022-09-21] MEDS: Allopurinol 100 MG TAB PO (08:30)
[2022-09-21] MEDS: Aspirin E.C. 81 MG TABEC PO (08:30)
[2022-09-21] MEDS: Potassium Chloride 20 MEQ TABCR PO (08:30)
[2022-09-21] MEDS: busPIRone 15 MG TAB PO ×2 (08:30→20:17)
[2022-09-21] MEDS: Gabapentin 300 MG CAP PO ×3 (08:30→20:17)
[2022-09-21] MEDS: Citalopram 20 MG TAB PO (08:30)
[2022-09-21] MEDS: LORazepam 1 MG TAB PO ×3 (08:39→20:17)
[2022-09-21] MEDS: Normal Saline Flush 10 ML SYR IVP (08:39)
--- NOTE | 2022-09-21 09:08 | CMPROGNOTE_ITS ---
Date of service: 09/21/22 Time of Service: 09:10 Care Management Progress Note Progress Note Text Progress Note Text: S/O:Luis was sitting up in a chair when CM met with him. He stated that he was not feeling well at all today, but that he is better than he was on the weekend. He stated that he is coughing a lot and expectoatring sputum that looks like strawberry jam. He stated it is thick and red in color and it is difficult to get it up and out. He is also experiencing trouble breathing. Per provider, Luis has diuresed well and has lost about 12 kg. A: Luis is a 51 year old man admitted on 09/17/22 with respiratory failure P:Anticipate Luis will return to the community when medically cleared with a resumption of home health services for nursing, PT and OT. A referral has been sent to [facility] for [facility] and community case management. He will follow up with his PCP, Cardiology and plan of care and transport via [facility]. CM will follow and assess for discharge concerns.
[2022-09-21] MEDS: Torsemide 20 MG TAB 60 MG PO (11:48)
--- NOTE | 2022-09-21 13:47 | W.PFT ---
Date of service: 09/21/22 Time of Service: 08:55 Pulmonary Function Test Result Indications: Trilogy qualification Interpretation Spirometry: Restrictive spirometry. There is no airflow limitation present. Note: Restrictive process with no airflow obstruction seen. Clinical Correlation therefore is recommended.
[2022-09-21] MEDS: Acetaminophen 325 MG TAB PO (14:04)
--- NOTE | 2022-09-21 14:47 | W.PM.PROGNOT ---
Date of Service Date of service: 09/21/22 Time of Service: 14:47 Assessment and Plan Assessment and plan (1) Acute on chronic heart failure with reduced ejection fraction and diastolic dysfunction: Status: Acute Assessment and plan: Echo of 04/20/22 demonstrated his LVEF to be preserved at 60 to 65% with apical wall motion abnormality. Historically he has HFrEF w/ prior LVEF 40 TO 45% and hx of VT arrest requiring AICD and 7 prior drug elution stents. AICD Current echo report showed EF of 55% with left ventricular apex and anteroapical segment akinesis. Unclear whether this is primary ACS vs secondary stress induced ischemic troponin leak from his CHF. Troponin trended downward. Continue ASA and Plavix. Pulmonary/Senior Accounts Payable Clerk following. (2) Respiratory failure with hypoxia and hypercapnia: Status: Acute Assessment and plan: He initially was billed as a multifocal pneumonia but it is now more clear that the primary process is CHF. Nevertheless, he recently was hospitalized for cellulitis of his groin and has leukocytosis (may be reactive to his NSTEMI and CHF) Blood cxs negative x 72 hours; d/c cefepime. Lactic acidosis; resolved. BiPAP at 16/10 with 40% when asleep. O2 goal of > 90%. ABG and spirometry completed on 09/21; supports dx of OHS. Dr Hoffman has initiated obtaining NIV support to use at . (3) Non-ST elevation UT (NSTEMI): Status: Inactive Assessment and plan: as above. (4) COPD (chronic obstructive pulmonary disease): Status: Chronic Assessment and plan: Symbicort and Spiriva along w/ prn DuoNeb; upon discharge he will resume his Stiolto Respimat Does not appear to be in exacerbation. (5) Ischemic cardiomyopathy: Status: Chronic Assessment and plan: as above (6) CAD (coronary artery disease): Status: Chronic Assessment and plan: as above Subjective Subjective Patient reports: no new complaints, feels better, tolerating a regular diet and afebrile; denies nausea or vomiting Exam Narrative Exam Narrative: Morbidly obese white male sitting in recliner. Conversant. NC in place. Lungs with diffuse bilateral rales in bases. Heart is regular rate and rhythm no appreciable murmur rub Abdomen obese soft nontender normal bowel sounds. Lower extremities 3+ pitting edema; less firm when compressed in pretibial areas. Psych: Affect appropriate; doesn't appear anxious. Objective Last Vital Signs Temp 36.8 C 09/21/22 14:38 Pulse 73 09/21/22 14:38 Resp 18 09/21/22 14:38 BP 125/73 09/21/22 14:38 Pulse Ox 90 L 09/21/22 14:38 Laboratory Results - last 24 hr 09/18/22 09/21/22 09/21/22 01:30 06:30 06:30 WBC 12.34 H RBC 3.63 L Hgb 10.2 L Hct 32.8 L MCV 90 MCH 28.1 MCHC 31.1 L RDW 15.7 H Plt Count 326 MPV 8.3 Immature Gran % 0.5 Neutrophils % 67.5 Lymphocytes % 15.9 Monocytes % 10.2 Eosinophils % 5.3 Basophils % 0.6 Nucleated RBC % 0.0 Absolute Neutrophils 8.33 H Absolute Lymphocytes 1.96 Absolute Monocytes 1.26 H Absolute Eosinophils 0.65 Absolute Basophils 0.07 ABG Sample Site ABG pH ABG pCO2 ABG pO2 ABG HCO3 ABG Total CO2 ABG O2 Saturation ABG Base Excess Oxygen Liter Flow Sodium 140 Potassium 3.4 L Chloride 97 L Carbon Dioxide 43.3 H Anion Gap -0.3 L BUN 13 Creatinine 0.8 Est GFR (CKD-EPI 2020) 105.82 Glucose 112 H Calcium 8.8 NT-Pro-B Natriuret Pep 1203 H Urine Legionella Ag Negative Ur Strep pneumoniae Ag Negative 09/21/22 08:04 WBC RBC Hgb Hct MCV MCH MCHC RDW Plt Count MPV Immature Gran % Neutrophils % Lymphocytes % Monocytes % Eosinophils % Basophils % Nucleated RBC % Absolute Neutrophils Absolute Lymphocytes Absolute Monocytes Absolute Eosinophils Absolute Basophils ABG Sample Site Left Radial ABG pH 7.44 ABG pCO2 66 H* ABG pO2 51 L ABG HCO3 44 H ABG Total CO2 41 H ABG O2 Saturation 89 L ABG Base Excess > 15 H Oxygen Liter Flow 6 Sodium Potassium Chloride Carbon Dioxide Anion Gap BUN Creatinine Est GFR (CKD-EPI 2020) Glucose Calcium NT-Pro-B Natriuret Pep Urine Legionella Ag Ur Strep pneumoniae Ag Time Spent with Patient Time Spent with Patient: 25-34 minutes Time was spent: preparing to see the patient(eg.review tests), obtaining and/or reviewing separately otained hiistory, ordering medications,tests, procedures, referring, communicating with other health rental boats caretaker and indepentently interpreting results
[2022-09-21] MEDS: Atorvastatin 40 MG TAB 80 MG PO (20:17)
[2022-09-21] MEDS: Magnesium Oxide 400 MG TAB PO (21:02)
[2022-09-22] VITALS (11 sets, daily range): BP systolic 105–145; BP diastolic 67–81; PULSE 60–70; RESP 10–19; TEMP 36.5–37.4; O2SAT 90–99
--- NOTE | 2022-09-22 07:14 | W.PULMPROG ---
Assessment and Plan Assessment and plan (1) Respiratory failure with hypoxia and hypercapnia: Status: Acute (2) CHF exacerbation: Status: Acute (3) COPD (chronic obstructive pulmonary disease): Status: Chronic (4) CAD (coronary artery disease): Status: Chronic (5) Morbid obesity: Status: Chronic (6) AICD (automatic cardioverter/defibrillator) present: Status: Acute Assessment and plan: This is a 51 yo man with ischemic CHF s/p AICD, COPD and a recent [facility] [place] for cellulitis. Initially, he was thought to have pneumonia/sepsis secondary to COPD exacerbation, acute on chronic hypoxic and hypercapnic respiratory failure and cellulitis. Initial CXR was wet appearing but could not disclude infection. After aggressive diureses his respiratory status and CRX improved. Blood cultures returned negative after 72 hours and abx were stopped. Repeat echo was completed without significantly new findings in comparison to prior studies. EF stable at an estimated 55%. He had an ABG and spirometry completed today which support the diagnosis of OHS. He would benefit and does qualify for NIV HS upon discharge. Acute on Chronic Hypoxic and Hypercapnic respiratory failure - CHF exacerbation, OHS, COPD - continue BiPAP at night - Qualifies for Trilogy - I will order this for him - supplemental O2 for sats >90% - he may need to be discharged with O2 COPD - spirometry today with restriction - would recommend full PFT's as outpatient - continue Duonebs prn - continue home Stiolto when able - albuterol HFA prn CHF Exacerbaiton - diuresis per hospitalist team - has AICD General Date Of Service Date of service: 09/22/22 Time of Service: 07:14 Subjective 24 Hour Events: Luis continues to be diureses, with stability of his renal function. His O2 has been weaned to 3.5LPM Note Note: Luis is feeling well. We discussed that he qualifies for Trilogy (AVAPS) device and that I will send in this order. He is open to this as well as open to following up in clinic with me. Exam Narrative Exam Narrative: Gen: NAD, normal respiratory effort, obese HENT: PERRL, nasal turbinates normal without erythema or inflammation, moist oral mucosa, Mallampati 2, No LAD or JVD Chest: No respiratory distress, normal appearance of chest, clear to auscultation bilaterally, improved crackles Heart: regular rate and rhythym, no murmurs, rubs or gallops Abdomen: Non-distended, soft, non tender Extremities: No clubbing, + edema, cyanosis, rashes Neuro: AAOx3 , non focal Psych: cooperative, appropriate mental affect Objective Last Vital Signs Temp 37.2 C 09/22/22 01:31 Pulse 70 09/22/22 01:31 Resp 19 09/22/22 02:45 BP 111/67 09/22/22 01:31 Pulse Ox 92 09/22/22 01:31 Laboratory Results - last 24 hr 09/18/22 09/21/22 01:30 08:04 ABG Sample Site Left Radial ABG pH 7.44 ABG pCO2 66 H* ABG pO2 51 L ABG HCO3 44 H ABG Total CO2 41 H ABG O2 Saturation 89 L ABG Base Excess > 15 H Oxygen Liter Flow 6 Urine Legionella Ag Negative Ur Strep pneumoniae Ag Negative Results Medications Medications: Active Medications Generic Name Dose Route Start Last Admin Trade Name Freq PRN Reason Stop Dose Admin Acetaminophen 0 mg 09/17/22 12:02 09/21/22 14:04 Acetaminophen 325 Mg Tab PO 325 mg Q4H PRN PRN Administration Al Hydrox/Mg Hydrox/Simethicone 30 ml 09/17/22 12:02 Mylanta Suspension 30 Ml Cup PO Q2H PRN PRN Albuterol Sulfate 2.5 mg 09/17/22 12:02 Albuterol 2.5 Mg/3 Ml Inh Soln Vial UPD Q2H PRN PRN Albuterol/Ipratropium 3 ml 09/17/22 18:42 Albuterol/Ipratropium 3 Ml Upd Vial UPD Q6H PRN PRN wheezing Allopurinol 100 mg 09/17/22 17:00 09/21/22 08:30 Allopurinol 100 Mg Tab PO 100 mg DAILY ALFREDITO Administration Aspirin 81 mg 09/18/22 08:30 09/21/22 08:30 Aspirin E.C. 81 Mg Tabec PO 81 mg DAILY ALFREDITO Administration Atorvastatin Calcium 80 mg 09/17/22 20:00 09/21/22 20:17 Atorvastatin 40 Mg Tab PO 80 mg QPM ALFREDITO Administration Buprenorphine/Naloxone 1 each 09/19/22 08:30 09/21/22 08:21 Buprenorphine/Naloxone 12 Mg/3 Mg Film SL 1 each DAILY ALFREDITO Administration Buspirone HCl 15 mg 09/17/22 20:00 09/21/22 20:17 Buspirone 15 Mg Tab PO 15 mg BID ALFREDITO Administration Citalopram Hydrobromide 20 mg 09/18/22 08:30 09/21/22 08:30 Citalopram 20 Mg Tab PO 20 mg DAILY ALFREDITO Administration Clopidogrel Bisulfate 75 mg 09/17/22 16:40 09/21/22 08:29 Clopidogrel 75 Mg Tab PO 75 mg DAILY ALFREDITO Administration Clotrimazole 40 gm/ Zinc Oxide 0 gm 09/17/22 20:00 09/21/22 20:17 40 gm/ Vitamin A/Vitamin D 40 TP 1 applicatio gm TID ALFREDITO Administration Device 1 each 09/17/22 17:00 Inhaler, Assist Device MC DIRECTED [facility] Dimethicone/Zinc Oxide 0 gm 09/17/22 11:57 Branden Protect Cream 142 Gm Tube TP PRN PRN Docusate Sodium 100 mg 09/17/22 12:02 Docusate Sodium 100 Mg Cap PO TID PRN PRN Folic Acid 2 mg 09/18/22 08:30 09/21/22 08:29 Folic Acid 1 Mg Tab PO 2 mg DAILY ALFREDITO Administration Gabapentin 300 mg 09/17/22 20:00 09/21/22 20:17 Gabapentin 300 Mg Cap PO 300 mg TID ALFREDITO Administration Sodium Chloride 500 mls @ 0 mls/hr 09/17/22 12:02 09/17/22 17:42 Saline 500ml Bag IV 1 mls/hr PRN PRN Administration As Directed IV Miscellaneous Supplies 1 each 09/17/22 12:15 Iv Access IV DIRECTED [facility] Lorazepam 1 mg 09/20/22 14:37 09/21/22 20:17 Lorazepam 1 Mg Tab PO 1 mg TID PRN PRN Administration Magnesium Hydroxide 30 ml 09/17/22 12:02 Milk Of Magnesia 30 Ml Cup PO DAILY PRN PRN Magnesium Oxide 400 mg 09/18/22 22:00 09/21/22 21:02 Magnesium Oxide 400 Mg Tab PO 400 mg HS ALFREDITO Administration Nicotine 21 mg 09/19/22 08:30 09/21/22 08:21 Nicotine 21 Mg/24 Hr Patch TD 21 mg DAILY ALFREDITO Administration Pantoprazole Sodium 40 mg 09/17/22 17:00 09/21/22 08:29 Pantoprazole 40 Mg Tabcr PO 40 mg DAILY@0730 ALFREDITO Administration Polyethylene Glycol 17 gm 09/17/22 12:02 Polyethylene Glycol 3350 17 Gm Packet PO DAILY PRN PRN Constipation Potassium Chloride 20 meq 09/21/22 08:30 09/21/22 08:30 Potassium Chloride 20 Meq Tabcr PO 20 meq DAILY ALFREDITO Administration Ranolazine 500 mg 09/18/22 20:00 09/21/22 20:17 Ranolazine 500 Mg Tabcr PO 500 mg BID ALFREDITO Administration Sodium Chloride 0 ml 09/17/22 12:02 09/21/22 08:39 Normal Saline Flush 10 Ml Syr IVP 20 ml PRN PRN Administration Sodium Chloride 44 ml 09/19/22 11:23 Sodium Chloride-Nasal [place]-Adult 44 Ml Btl NS QID PRN PRN Tiotropium [place]/Olodaterol 2 puff 09/18/22 08:30 09/21/22 07:34 Tiotropium/Olodaterol 10 Puff Inhaler IH 2 inh DAILY ALFREDITO Administration Torsemide 60 mg 09/21/22 11:30 09/21/22 11:48 Torsemide 20 Mg Tab PO 60 mg DAILY ALFREDITO Administration Allergies hydromorphone [From Dilaudid] Allergy (Verified 08/19/22 10:14) Labs 09/21/22 06:30 09/21/22 06:30 Labs: 09/18/22 16:10 Sputum - Expectorated Sputum Culture - Preliminary Normal Krista Bernice Albicans 09/18/22 16:10 Sputum - Expectorated Gram Stain - Final 09/17/22 09:50 Blood Blood Culture - Preliminary NO GROWTH 96 HOURS 09/17/22 10:18 Blood Blood Culture - Preliminary NO GROWTH 96 HOURS 09/17/22 23:30 Nose MRSA Screen - Final Laboratory Tests Range/Units 09/17/22 09/17/22 09/17/22 07:53 07:53 07:53 WBC (4.4-10.8) 10^3/uL 14.70 H RBC (4.36-5.78) 10^6/uL 5.02 Hgb (13.5-17.5) g/dL 14.0 Hct (40.0-50.0) % 46.6 MCV (80-95) fL 93 MCH (27.0-33.0) pg 27.9 MCHC (32.0-36.0) % 30.0 L RDW (11.8-14.1) % 15.9 H Plt Count (130-400) 10^3/uL 619 H MPV (8.0-11.0) fL 8.3 Immature Gran % 0.3 Neutrophils % 78.8 Band Neutrophils % Lymphocytes % 12.1 Atypical Lymphs % Monocytes % 2.7 Eosinophils % 5.4 Basophils % 0.7 Metamyelocytes % Myelocytes % Promyelocytes % Other Cells % Nucleated RBC % (0.0-0.3) % 0.0 Absolute Neutrophils (1.2-6.7) 10^3/uL 11.58 H Absolute Lymphocytes (1.2-3.4) 10^3/uL 1.78 Absolute Monocytes (0.1-0.8) 10^3/uL 0.40 Absolute Eosinophils (0.0-0.7) 10^3/uL 0.79 H Absolute Basophils (0.0-0.2) 10^3/uL 0.10 RBC Morphology Polychromasia Hypochromasia Poikilocytosis Basophilic Stippling Anisocytosis Microcytosis Macrocytosis Spherocytes Tear Drop Cells Ovalocytes Stomatocytes [place] Bodies [place] Cells/Echinocytes Acanthocytes (Spur) Schistocytes PT (9.3-11.0) sec INR (0.9-1.1) APTT (21.5-31.9) sec ABG Sample Site ABG pH (7.35-7.45) ABG pCO2 (35-45) mmHg ABG pO2 (80-105) mmHg ABG HCO3 (22-26) mmol/L ABG Total CO2 (23-27) mmol/L ABG O2 Saturation (95-98) % ABG Base Excess (-2-3) mmol/L VBG pH (7.31-7.41) VBG pCO2 (41-51) mmHg VBG pO2 mmHg VBG HCO3 (23-28) mmol/L VBG Total CO2 (24-29) mmol/L VBG O2 Saturation % VBG Base Excess (-2-3) mmol/L VBG Lactate (0.6-1.4) mmol/L 3.3 H* Oxygen Liter Flow L FiO2 % Sodium (136-145) mmol/L 137 Potassium (3.5-5.1) mmol/L 3.3 L Chloride (98-107) mmol/L 95 L Carbon Dioxide (21.0-32.0) mmol/L 38.3 H Anion Gap (3-11) mmol/L 3.7 BUN (7-18) mg/dL 9 Creatinine (0.70-1.30) mg/dL 1.1 Est GFR (CKD-EPI 2020) (mL/min/1.73m2) 80.27 Glucose (74-106) mg/dL 189 H Hemoglobin A1c (<5.7) % Calcium (8.5-10.1) mg/dL 9.2 Magnesium (1.8-2.4) mg/dL 1.8 Total Bilirubin (0.2-1.0) mg/dL 0.4 AST (15-37) U/L 20 ALT (16-63) U/L 25 Alkaline Phosphatase (46-116) U/L 120 H Troponin I (<or=60) ng/L < 50 NT-Pro-B Natriuret Pep (<300) pg/mL 1439 H Total Protein (6.4-8.2) g/dL 9.0 H Albumin (3.4-5.0) g/dL 3.3 L Triglycerides (<150) mg/dL Total Cholesterol (<200) mg/dL LDL Cholesterol, Calc (<100) mg/dL HDL Cholesterol (40-60) mg/dL Procalcitonin ng/mL < 0.1 COVID-19 Source SARS-CoV-2 (PCR) (Negative) Urine Legionella Ag (Negative) Ur Strep pneumoniae Ag (Negative) Add-On Test Request Range/Units 09/17/22 09/17/22 09/17/22 08:46 10:00 10:48 WBC (4.4-10.8) 10^3/uL RBC (4.36-5.78) 10^6/uL Hgb (13.5-17.5) g/dL Hct (40.0-50.0) % MCV (80-95) fL MCH (27.0-33.0) pg MCHC (32.0-36.0) % RDW (11.8-14.1) % Plt Count (130-400) 10^3/uL MPV (8.0-11.0) fL Immature Gran % Neutrophils % Band Neutrophils % Lymphocytes % Atypical Lymphs % Monocytes % Eosinophils % Basophils % Metamyelocytes % Myelocytes % Promyelocytes % Other Cells % Nucleated RBC % (0.0-0.3) % Absolute Neutrophils (1.2-6.7) 10^3/uL Absolute Lymphocytes (1.2-3.4) 10^3/uL Absolute Monocytes (0.1-0.8) 10^3/uL Absolute Eosinophils (0.0-0.7) 10^3/uL Absolute Basophils (0.0-0.2) 10^3/uL RBC Morphology Polychromasia Hypochromasia Poikilocytosis Basophilic Stippling Anisocytosis Microcytosis Macrocytosis Spherocytes Tear Drop Cells Ovalocytes Stomatocytes [place] Bodies [place] Cells/Echinocytes Acanthocytes (Spur) Schistocytes PT (9.3-11.0) sec INR (0.9-1.1) APTT (21.5-31.9) sec ABG Sample Site Left Radial Left Radial ABG pH (7.35-7.45) 7.27 L 7.27 L ABG pCO2 (35-45) mmHg 83 H* 83 H* ABG pO2 (80-105) mmHg 73 L 68 L ABG HCO3 (22-26) mmol/L 38 H 38 H ABG Total CO2 (23-27) mmol/L 35 H 36 H ABG O2 Saturation (95-98) % 94 L 93 L ABG Base Excess (-2-3) mmol/L 11 H 12 H VBG pH (7.31-7.41) VBG pCO2 (41-51) mmHg VBG pO2 mmHg VBG HCO3 (23-28) mmol/L VBG Total CO2 (24-29) mmol/L VBG O2 Saturation % VBG Base Excess (-2-3) mmol/L VBG Lactate (0.6-1.4) mmol/L Oxygen Liter Flow L FiO2 % 55 Sodium (136-145) mmol/L Potassium (3.5-5.1) mmol/L Chloride (98-107) mmol/L Carbon Dioxide (21.0-32.0) mmol/L Anion Gap (3-11) mmol/L BUN (7-18) mg/dL Creatinine (0.70-1.30) mg/dL Est GFR (CKD-EPI 2020) (mL/min/1.73m2) Glucose (74-106) mg/dL Hemoglobin A1c (<5.7) % Calcium (8.5-10.1) mg/dL Magnesium (1.8-2.4) mg/dL Total Bilirubin (0.2-1.0) mg/dL AST (15-37) U/L ALT (16-63) U/L Alkaline Phosphatase (46-116) U/L Troponin I (<or=60) ng/L 756 H* NT-Pro-B Natriuret Pep (<300) pg/mL Total Protein (6.4-8.2) g/dL Albumin (3.4-5.0) g/dL Triglycerides (<150) mg/dL Total Cholesterol (<200) mg/dL LDL Cholesterol, Calc (<100) mg/dL HDL Cholesterol (40-60) mg/dL Procalcitonin ng/mL COVID-19 Source SARS-CoV-2 (PCR) (Negative) Urine Legionella Ag (Negative) Ur Strep pneumoniae Ag (Negative) Add-On Test Request Range/Units 09/17/22 09/17/22 09/17/22 11:25 13:45 14:59 WBC (4.4-10.8) 10^3/uL RBC (4.36-5.78) 10^6/uL Hgb (13.5-17.5) g/dL Hct (40.0-50.0) % MCV (80-95) fL MCH (27.0-33.0) pg MCHC (32.0-36.0) % RDW (11.8-14.1) % Plt Count (130-400) 10^3/uL MPV (8.0-11.0) fL Immature Gran % Neutrophils % Band Neutrophils % Lymphocytes % Atypical Lymphs % Monocytes % Eosinophils % Basophils % Metamyelocytes % Myelocytes % Promyelocytes % Other Cells % Nucleated RBC % (0.0-0.3) % Absolute Neutrophils (1.2-6.7) 10^3/uL Absolute Lymphocytes (1.2-3.4) 10^3/uL Absolute Monocytes (0.1-0.8) 10^3/uL Absolute Eosinophils (0.0-0.7) 10^3/uL Absolute Basophils (0.0-0.2) 10^3/uL RBC Morphology Polychromasia Hypochromasia Poikilocytosis Basophilic Stippling Anisocytosis Microcytosis Macrocytosis Spherocytes Tear Drop Cells Ovalocytes Stomatocytes [place] Bodies [place] Cells/Echinocytes Acanthocytes (Spur) Schistocytes PT (9.3-11.0) sec INR (0.9-1.1) APTT (21.5-31.9) sec ABG Sample Site ABG pH (7.35-7.45) ABG pCO2 (35-45) mmHg ABG pO2 (80-105) mmHg ABG HCO3 (22-26) mmol/L ABG Total CO2 (23-27) mmol/L ABG O2 Saturation (95-98) % ABG Base Excess (-2-3) mmol/L VBG pH (7.31-7.41) 7.33 VBG pCO2 (41-51) mmHg 73 H* VBG pO2 mmHg 96 VBG HCO3 (23-28) mmol/L 38 H VBG Total CO2 (24-29) mmol/L 35 H VBG O2 Saturation % 99 VBG Base Excess (-2-3) mmol/L 12 H VBG Lactate (0.6-1.4) mmol/L 3.3 H* Oxygen Liter Flow L FiO2 % Sodium (136-145) mmol/L Potassium (3.5-5.1) mmol/L Chloride (98-107) mmol/L Carbon Dioxide (21.0-32.0) mmol/L Anion Gap (3-11) mmol/L BUN (7-18) mg/dL Creatinine (0.70-1.30) mg/dL Est GFR (CKD-EPI 2020) (mL/min/1.73m2) Glucose (74-106) mg/dL Hemoglobin A1c (<5.7) % Calcium (8.5-10.1) mg/dL Magnesium (1.8-2.4) mg/dL Total Bilirubin (0.2-1.0) mg/dL AST (15-37) U/L ALT (16-63) U/L Alkaline Phosphatase (46-116) U/L Troponin I (<or=60) ng/L NT-Pro-B Natriuret Pep (<300) pg/mL Total Protein (6.4-8.2) g/dL Albumin (3.4-5.0) g/dL Triglycerides (<150) mg/dL Total Cholesterol (<200) mg/dL LDL Cholesterol, Calc (<100) mg/dL HDL Cholesterol (40-60) mg/dL Procalcitonin ng/mL COVID-19 Source Nasal/Nares SARS-CoV-2 (PCR) (Negative) Negative Urine Legionella Ag (Negative) Ur Strep pneumoniae Ag (Negative) Add-On Test Request Range/Units 09/17/22 09/17/22 09/17/22 14:59 15:06 16:14 WBC (4.4-10.8) 10^3/uL RBC (4.36-5.78) 10^6/uL Hgb (13.5-17.5) g/dL Hct (40.0-50.0) % MCV (80-95) fL MCH (27.0-33.0) pg MCHC (32.0-36.0) % RDW (11.8-14.1) % Plt Count (130-400) 10^3/uL MPV (8.0-11.0) fL Immature Gran % Neutrophils % Band Neutrophils % Lymphocytes % Atypical Lymphs % Monocytes % Eosinophils % Basophils % Metamyelocytes % Myelocytes % Promyelocytes % Other Cells % Nucleated RBC % (0.0-0.3) % Absolute Neutrophils (1.2-6.7) 10^3/uL Absolute Lymphocytes (1.2-3.4) 10^3/uL Absolute Monocytes (0.1-0.8) 10^3/uL Absolute Eosinophils (0.0-0.7) 10^3/uL Absolute Basophils (0.0-0.2) 10^3/uL RBC Morphology Polychromasia Hypochromasia Poikilocytosis Basophilic Stippling Anisocytosis Microcytosis Macrocytosis Spherocytes Tear Drop Cells Ovalocytes Stomatocytes [place] Bodies [place] Cells/Echinocytes Acanthocytes (Spur) Schistocytes PT (9.3-11.0) sec 11.6 H INR (0.9-1.1) 1.1 APTT (21.5-31.9) sec 25.4 ABG Sample Site ABG pH (7.35-7.45) ABG pCO2 (35-45) mmHg ABG pO2 (80-105) mmHg ABG HCO3 (22-26) mmol/L ABG Total CO2 (23-27) mmol/L ABG O2 Saturation (95-98) % ABG Base Excess (-2-3) mmol/L VBG pH (7.31-7.41) VBG pCO2 (41-51) mmHg VBG pO2 mmHg VBG HCO3 (23-28) mmol/L VBG Total CO2 (24-29) mmol/L VBG O2 Saturation % VBG Base Excess (-2-3) mmol/L VBG Lactate (0.6-1.4) mmol/L Oxygen Liter Flow L FiO2 % Sodium (136-145) mmol/L Potassium (3.5-5.1) mmol/L Chloride (98-107) mmol/L Carbon Dioxide (21.0-32.0) mmol/L Anion Gap (3-11) mmol/L BUN (7-18) mg/dL Creatinine (0.70-1.30) mg/dL Est GFR (CKD-EPI 2020) (mL/min/1.73m2) Glucose (74-106) mg/dL Hemoglobin A1c (<5.7) % Calcium (8.5-10.1) mg/dL Magnesium (1.8-2.4) mg/dL Total Bilirubin (0.2-1.0) mg/dL AST (15-37) U/L ALT (16-63) U/L Alkaline Phosphatase (46-116) U/L Troponin I (<or=60) ng/L 1027 H* Cancelled NT-Pro-B Natriuret Pep (<300) pg/mL Total Protein (6.4-8.2) g/dL Albumin (3.4-5.0) g/dL Triglycerides (<150) mg/dL Total Cholesterol (<200) mg/dL LDL Cholesterol, Calc (<100) mg/dL HDL Cholesterol (40-60) mg/dL Procalcitonin ng/mL COVID-19 Source SARS-CoV-2 (PCR) (Negative) Urine Legionella Ag (Negative) Ur Strep pneumoniae Ag (Negative) Add-On Test Request Range/Units 05/09/17/22 09/17/22 18:03 18:03 23:05 WBC (4.4-10.8) 10^3/uL RBC (4.36-5.78) 10^6/uL Hgb (13.5-17.5) g/dL Hct (40.0-50.0) % MCV (80-95) fL MCH (27.0-33.0) pg MCHC (32.0-36.0) % RDW (11.8-14.1) % Plt Count (130-400) 10^3/uL MPV (8.0-11.0) fL Immature Gran % Neutrophils % Band Neutrophils % Lymphocytes % Atypical Lymphs % Monocytes % Eosinophils % Basophils % Metamyelocytes % Myelocytes % Promyelocytes % Other Cells % Nucleated RBC % (0.0-0.3) % Absolute Neutrophils (1.2-6.7) 10^3/uL Absolute Lymphocytes (1.2-3.4) 10^3/uL Absolute Monocytes (0.1-0.8) 10^3/uL Absolute Eosinophils (0.0-0.7) 10^3/uL Absolute Basophils (0.0-0.2) 10^3/uL RBC Morphology Polychromasia Hypochromasia Poikilocytosis Basophilic Stippling Anisocytosis Microcytosis Macrocytosis Spherocytes Tear Drop Cells Ovalocytes Stomatocytes [place] Bodies [place] Cells/Echinocytes Acanthocytes (Spur) Schistocytes PT (9.3-11.0) sec INR (0.9-1.1) APTT (21.5-31.9) sec 27.1 ABG Sample Site ABG pH (7.35-7.45) ABG pCO2 (35-45) mmHg ABG pO2 (80-105) mmHg ABG HCO3 (22-26) mmol/L ABG Total CO2 (23-27) mmol/L ABG O2 Saturation (95-98) % ABG Base Excess (-2-3) mmol/L VBG pH (7.31-7.41) VBG pCO2 (41-51) mmHg VBG pO2 mmHg VBG HCO3 (23-28) mmol/L VBG Total CO2 (24-29) mmol/L VBG O2 Saturation % VBG Base Excess (-2-3) mmol/L VBG Lactate (0.6-1.4) mmol/L Oxygen Liter Flow L FiO2 % Sodium (136-145) mmol/L 138 Potassium (3.5-5.1) mmol/L 3.9 Chloride (98-107) mmol/L 96 L Carbon Dioxide (21.0-32.0) mmol/L 37.9 H Anion Gap (3-11) mmol/L 4.1 BUN (7-18) mg/dL 11 Creatinine (0.70-1.30) mg/dL 1.1 Est GFR (CKD-EPI 2020) (mL/min/1.73m2) 80.27 Glucose (74-106) mg/dL 189 H Hemoglobin A1c (<5.7) % Calcium (8.5-10.1) mg/dL 8.7 Magnesium (1.8-2.4) mg/dL Total Bilirubin (0.2-1.0) mg/dL AST (15-37) U/L ALT (16-63) U/L Alkaline Phosphatase (46-116) U/L Troponin I (<or=60) ng/L 995 H* NT-Pro-B Natriuret Pep (<300) pg/mL Total Protein (6.4-8.2) g/dL Albumin (3.4-5.0) g/dL Triglycerides (<150) mg/dL Total Cholesterol (<200) mg/dL LDL Cholesterol, Calc (<100) mg/dL HDL Cholesterol (40-60) mg/dL Procalcitonin ng/mL COVID-19 Source SARS-CoV-2 (PCR) (Negative) Urine Legionella Ag (Negative) Ur Strep pneumoniae Ag (Negative) Add-On Test Request Range/Units 09/18/22 09/18/22 09/18/22 01:30 06:20 06:20 WBC (4.4-10.8) 10^3/uL 20.54 H RBC (4.36-5.78) 10^6/uL 4.09 L Hgb (13.5-17.5) g/dL 11.3 L D Hct (40.0-50.0) % 37.5 L MCV (80-95) fL 92 MCH (27.0-33.0) pg 27.6 MCHC (32.0-36.0) % 30.1 L RDW (11.8-14.1) % 16.0 H Plt Count (130-400) 10^3/uL 453 H MPV (8.0-11.0) fL 8.6 Immature Gran % 0.5 Neutrophils % 88.9 Band Neutrophils % Lymphocytes % 5.4 Atypical Lymphs % Monocytes % 4.7 Eosinophils % 0.3 Basophils % 0.2 Metamyelocytes % Myelocytes % Promyelocytes % Other Cells % Nucleated RBC % (0.0-0.3) % 0.0 Absolute Neutrophils (1.2-6.7) 10^3/uL 18.26 H Absolute Lymphocytes (1.2-3.4) 10^3/uL 1.11 L Absolute Monocytes (0.1-0.8) 10^3/uL 0.97 H Absolute Eosinophils (0.0-0.7) 10^3/uL 0.06 Absolute Basophils (0.0-0.2) 10^3/uL 0.04 RBC Morphology Polychromasia Hypochromasia Poikilocytosis Basophilic Stippling Anisocytosis Microcytosis Macrocytosis Spherocytes Tear Drop Cells Ovalocytes Stomatocytes [place] Bodies [place] Cells/Echinocytes Acanthocytes (Spur) Schistocytes PT (9.3-11.0) sec INR (0.9-1.1) APTT (21.5-31.9) sec ABG Sample Site ABG pH (7.35-7.45) ABG pCO2 (35-45) mmHg ABG pO2 (80-105) mmHg ABG HCO3 (22-26) mmol/L ABG Total CO2 (23-27) mmol/L ABG O2 Saturation (95-98) % ABG Base Excess (-2-3) mmol/L VBG pH (7.31-7.41) VBG pCO2 (41-51) mmHg VBG pO2 mmHg VBG HCO3 (23-28) mmol/L VBG Total CO2 (24-29) mmol/L VBG O2 Saturation % VBG Base Excess (-2-3) mmol/L VBG Lactate (0.6-1.4) mmol/L Oxygen Liter Flow L FiO2 % Sodium (136-145) mmol/L 141 Potassium (3.5-5.1) mmol/L 4.4 Chloride (98-107) mmol/L 98 Carbon Dioxide (21.0-32.0) mmol/L 40.8 H Anion Gap (3-11) mmol/L 2.2 L BUN (7-18) mg/dL 15 Creatinine (0.70-1.30) mg/dL 0.9 Est GFR (CKD-EPI 2020) (mL/min/1.73m2) 102.12 Glucose (74-106) mg/dL 144 H Hemoglobin A1c (<5.7) % Calcium (8.5-10.1) mg/dL 8.4 L Magnesium (1.8-2.4) mg/dL Total Bilirubin (0.2-1.0) mg/dL 0.4 AST (15-37) U/L 17 ALT (16-63) U/L 15 L Alkaline Phosphatase (46-116) U/L 81 Troponin I (<or=60) ng/L NT-Pro-B Natriuret Pep (<300) pg/mL Total Protein (6.4-8.2) g/dL 7.6 Albumin (3.4-5.0) g/dL 2.4 L Triglycerides (<150) mg/dL 55 Total Cholesterol (<200) mg/dL 95 LDL Cholesterol, Calc (<100) mg/dL 36 HDL Cholesterol (40-60) mg/dL 48 Procalcitonin ng/mL COVID-19 Source SARS-CoV-2 (PCR) (Negative) Urine Legionella Ag (Negative) Negative Ur Strep pneumoniae Ag (Negative) Negative Add-On Test Request Range/Units 09/18/22 09/18/22 09/18/22 06:20 06:20 06:20 WBC (4.4-10.8) 10^3/uL RBC (4.36-5.78) 10^6/uL Hgb (13.5-17.5) g/dL Hct (40.0-50.0) % MCV (80-95) fL MCH (27.0-33.0) pg MCHC (32.0-36.0) % RDW (11.8-14.1) % Plt Count (130-400) 10^3/uL MPV (8.0-11.0) fL Immature Gran % Neutrophils % Band Neutrophils % Lymphocytes % Atypical Lymphs % Monocytes % Eosinophils % Basophils % Metamyelocytes % Myelocytes % Promyelocytes % Other Cells % Nucleated RBC % (0.0-0.3) % Absolute Neutrophils (1.2-6.7) 10^3/uL Absolute Lymphocytes (1.2-3.4) 10^3/uL Absolute Monocytes (0.1-0.8) 10^3/uL Absolute Eosinophils (0.0-0.7) 10^3/uL Absolute Basophils (0.0-0.2) 10^3/uL RBC Morphology Polychromasia Hypochromasia Poikilocytosis Basophilic Stippling Anisocytosis Microcytosis Macrocytosis Spherocytes Tear Drop Cells Ovalocytes Stomatocytes [place] Bodies [place] Cells/Echinocytes Acanthocytes (Spur) Schistocytes PT (9.3-11.0) sec INR (0.9-1.1) APTT (21.5-31.9) sec 37.9 H ABG Sample Site ABG pH (7.35-7.45) ABG pCO2 (35-45) mmHg ABG pO2 (80-105) mmHg ABG HCO3 (22-26) mmol/L ABG Total CO2 (23-27) mmol/L ABG O2 Saturation (95-98) % ABG Base Excess (-2-3) mmol/L VBG pH (7.31-7.41) VBG pCO2 (41-51) mmHg VBG pO2 mmHg VBG HCO3 (23-28) mmol/L VBG Total CO2 (24-29) mmol/L VBG O2 Saturation % VBG Base Excess (-2-3) mmol/L VBG Lactate (0.6-1.4) mmol/L Oxygen Liter Flow L FiO2 % Sodium (136-145) mmol/L Potassium (3.5-5.1) mmol/L Chloride (98-107) mmol/L Carbon Dioxide (21.0-32.0) mmol/L Anion Gap (3-11) mmol/L BUN (7-18) mg/dL Creatinine (0.70-1.30) mg/dL Est GFR (CKD-EPI 2020) (mL/min/1.73m2) Glucose (74-106) mg/dL Hemoglobin A1c (<5.7) % 5.8 H Calcium (8.5-10.1) mg/dL Magnesium (1.8-2.4) mg/dL Total Bilirubin (0.2-1.0) mg/dL AST (15-37) U/L ALT (16-63) U/L Alkaline Phosphatase (46-116) U/L Troponin I (<or=60) ng/L NT-Pro-B Natriuret Pep (<300) pg/mL Total Protein (6.4-8.2) g/dL Albumin (3.4-5.0) g/dL Triglycerides (<150) mg/dL Total Cholesterol (<200) mg/dL LDL Cholesterol, Calc (<100) mg/dL HDL Cholesterol (40-60) mg/dL Procalcitonin ng/mL COVID-19 Source SARS-CoV-2 (PCR) (Negative) Urine Legionella Ag (Negative) Ur Strep pneumoniae Ag (Negative) Add-On Test Request DONE Range/Units 09/18/22 09/18/22 09/18/22 06:20 10:40 12:30 WBC (4.4-10.8) 10^3/uL RBC (4.36-5.78) 10^6/uL Hgb (13.5-17.5) g/dL Hct (40.0-50.0) % MCV (80-95) fL MCH (27.0-33.0) pg MCHC (32.0-36.0) % RDW (11.8-14.1) % Plt Count (130-400) 10^3/uL MPV (8.0-11.0) fL Immature Gran % Neutrophils % Band Neutrophils % Lymphocytes % Atypical Lymphs % Monocytes % Eosinophils % Basophils % Metamyelocytes % Myelocytes % Promyelocytes % Other Cells % Nucleated RBC % (0.0-0.3) % Absolute Neutrophils (1.2-6.7) 10^3/uL Absolute Lymphocytes (1.2-3.4) 10^3/uL Absolute Monocytes (0.1-0.8) 10^3/uL Absolute Eosinophils (0.0-0.7) 10^3/uL Absolute Basophils (0.0-0.2) 10^3/uL RBC Morphology Polychromasia Hypochromasia Poikilocytosis Basophilic Stippling Anisocytosis Microcytosis Macrocytosis Spherocytes Tear Drop Cells Ovalocytes Stomatocytes [place] Bodies [place] Cells/Echinocytes Acanthocytes (Spur) Schistocytes PT (9.3-11.0) sec INR (0.9-1.1) APTT (21.5-31.9) sec Cancelled ABG Sample Site ABG pH (7.35-7.45) ABG pCO2 (35-45) mmHg ABG pO2 (80-105) mmHg ABG HCO3 (22-26) mmol/L ABG Total CO2 (23-27) mmol/L ABG O2 Saturation (95-98) % ABG Base Excess (-2-3) mmol/L VBG pH (7.31-7.41) VBG pCO2 (41-51) mmHg VBG pO2 mmHg VBG HCO3 (23-28) mmol/L VBG Total CO2 (24-29) mmol/L VBG O2 Saturation % VBG Base Excess (-2-3) mmol/L VBG Lactate (0.6-1.4) mmol/L 3.2 H* Oxygen Liter Flow L FiO2 % Sodium (136-145) mmol/L Potassium (3.5-5.1) mmol/L Chloride (98-107) mmol/L Carbon Dioxide (21.0-32.0) mmol/L Anion Gap (3-11) mmol/L BUN (7-18) mg/dL Creatinine (0.70-1.30) mg/dL Est GFR (CKD-EPI 2020) (mL/min/1.73m2) Glucose (74-106) mg/dL Hemoglobin A1c (<5.7) % Calcium (8.5-10.1) mg/dL Magnesium (1.8-2.4) mg/dL Total Bilirubin (0.2-1.0) mg/dL AST (15-37) U/L ALT (16-63) U/L Alkaline Phosphatase (46-116) U/L Troponin I (<or=60) ng/L 619 H* NT-Pro-B Natriuret Pep (<300) pg/mL 3108 H Total Protein (6.4-8.2) g/dL Albumin (3.4-5.0) g/dL Triglycerides (<150) mg/dL Total Cholesterol (<200) mg/dL LDL Cholesterol, Calc (<100) mg/dL HDL Cholesterol (40-60) mg/dL Procalcitonin ng/mL COVID-19 Source SARS-CoV-2 (PCR) (Negative) Urine Legionella Ag (Negative) Ur Strep pneumoniae Ag (Negative) Add-On Test Request Range/Units 09/19/22 09/19/22 09/19/22 05:35 12:03 12:03 WBC (4.4-10.8) 10^3/uL Cancelled RBC (4.36-5.78) 10^6/uL Cancelled Hgb (13.5-17.5) g/dL Cancelled Hct (40.0-50.0) % Cancelled MCV (80-95) fL Cancelled MCH (27.0-33.0) pg Cancelled MCHC (32.0-36.0) % Cancelled RDW (11.8-14.1) % Cancelled Plt Count (130-400) 10^3/uL Cancelled MPV (8.0-11.0) fL Cancelled Immature Gran % Cancelled Neutrophils % Cancelled Band Neutrophils % Cancelled Lymphocytes % Cancelled Atypical Lymphs % Cancelled Monocytes % Cancelled Eosinophils % Cancelled Basophils % Cancelled Metamyelocytes % Cancelled Myelocytes % Cancelled Promyelocytes % Cancelled Other Cells % Cancelled Nucleated RBC % (0.0-0.3) % Cancelled Absolute Neutrophils (1.2-6.7) 10^3/uL Cancelled Absolute Lymphocytes (1.2-3.4) 10^3/uL Cancelled Absolute Monocytes (0.1-0.8) 10^3/uL Cancelled Absolute Eosinophils (0.0-0.7) 10^3/uL Cancelled Absolute Basophils (0.0-0.2) 10^3/uL Cancelled RBC Morphology Cancelled Polychromasia Cancelled Hypochromasia Cancelled Poikilocytosis Cancelled Basophilic Stippling Cancelled Anisocytosis Cancelled Microcytosis Cancelled Macrocytosis Cancelled Spherocytes Cancelled Tear Drop Cells Cancelled Ovalocytes Cancelled Stomatocytes Cancelled [place] Bodies Cancelled [place] Cells/Echinocytes Cancelled Acanthocytes (Spur) Cancelled Schistocytes Cancelled PT (9.3-11.0) sec INR (0.9-1.1) APTT (21.5-31.9) sec ABG Sample Site ABG pH (7.35-7.45) ABG pCO2 (35-45) mmHg ABG pO2 (80-105) mmHg ABG HCO3 (22-26) mmol/L ABG Total CO2 (23-27) mmol/L ABG O2 Saturation (95-98) % ABG Base Excess (-2-3) mmol/L VBG pH (7.31-7.41) VBG pCO2 (41-51) mmHg VBG pO2 mmHg VBG HCO3 (23-28) mmol/L VBG Total CO2 (24-29) mmol/L VBG O2 Saturation % VBG Base Excess (-2-3) mmol/L VBG Lactate (0.6-1.4) mmol/L 2.7 H* Oxygen Liter Flow L FiO2 % Sodium (136-145) mmol/L 140 Potassium (3.5-5.1) mmol/L 3.8 Chloride (98-107) mmol/L 96 L Carbon Dioxide (21.0-32.0) mmol/L 39.4 H Anion Gap (3-11) mmol/L 4.6 BUN (7-18) mg/dL 17 Creatinine (0.70-1.30) mg/dL 0.9 Est GFR (CKD-EPI 2020) (mL/min/1.73m2) 102.12 Glucose (74-106) mg/dL 102 Hemoglobin A1c (<5.7) % Calcium (8.5-10.1) mg/dL 9.7 Magnesium (1.8-2.4) mg/dL Total Bilirubin (0.2-1.0) mg/dL AST (15-37) U/L ALT (16-63) U/L Alkaline Phosphatase (46-116) U/L Troponin I (<or=60) ng/L NT-Pro-B Natriuret Pep (<300) pg/mL Total Protein (6.4-8.2) g/dL Albumin (3.4-5.0) g/dL Triglycerides (<150) mg/dL Total Cholesterol (<200) mg/dL LDL Cholesterol, Calc (<100) mg/dL HDL Cholesterol (40-60) mg/dL Procalcitonin ng/mL COVID-19 Source SARS-CoV-2 (PCR) (Negative) Urine Legionella Ag (Negative) Ur Strep pneumoniae Ag (Negative) Add-On Test Request Range/Units 09/19/22 09/20/22 09/20/22 12:03 06:08 06:57 WBC (4.4-10.8) 10^3/uL 18.71 H RBC (4.36-5.78) 10^6/uL 4.65 Hgb (13.5-17.5) g/dL 13.0 L Hct (40.0-50.0) % 42.5 MCV (80-95) fL 91 MCH (27.0-33.0) pg 28.0 MCHC (32.0-36.0) % 30.6 L RDW (11.8-14.1) % 16.0 H Plt Count (130-400) 10^3/uL 470 H MPV (8.0-11.0) fL 8.3 Immature Gran % 0.6 Neutrophils % 83.9 Band Neutrophils % Lymphocytes % 9.2 Atypical Lymphs % Monocytes % 5.8 Eosinophils % 0.2 Basophils % 0.3 Metamyelocytes % Myelocytes % Promyelocytes % Other Cells % Nucleated RBC % (0.0-0.3) % 0.0 Absolute Neutrophils (1.2-6.7) 10^3/uL 15.70 H Absolute Lymphocytes (1.2-3.4) 10^3/uL 1.72 Absolute Monocytes (0.1-0.8) 10^3/uL 1.09 H Absolute Eosinophils (0.0-0.7) 10^3/uL 0.04 Absolute Basophils (0.0-0.2) 10^3/uL 0.06 RBC Morphology Polychromasia Hypochromasia Poikilocytosis Basophilic Stippling Anisocytosis Microcytosis Macrocytosis Spherocytes Tear Drop Cells Ovalocytes Stomatocytes [place] Bodies [place] Cells/Echinocytes Acanthocytes (Spur) Schistocytes PT (9.3-11.0) sec INR (0.9-1.1) APTT (21.5-31.9) sec ABG Sample Site ABG pH (7.35-7.45) ABG pCO2 (35-45) mmHg ABG pO2 (80-105) mmHg ABG HCO3 (22-26) mmol/L ABG Total CO2 (23-27) mmol/L ABG O2 Saturation (95-98) % ABG Base Excess (-2-3) mmol/L VBG pH (7.31-7.41) VBG pCO2 (41-51) mmHg VBG pO2 mmHg VBG HCO3 (23-28) mmol/L VBG Total CO2 (24-29) mmol/L VBG O2 Saturation % VBG Base Excess (-2-3) mmol/L VBG Lactate (0.6-1.4) mmol/L 0.9 Oxygen Liter Flow L FiO2 % Sodium (136-145) mmol/L 140 Potassium (3.5-5.1) mmol/L 3.6 Chloride (98-107) mmol/L 98 Carbon Dioxide (21.0-32.0) mmol/L 41.7 H Anion Gap (3-11) mmol/L 0.3 L BUN (7-18) mg/dL 15 Creatinine (0.70-1.30) mg/dL 0.8 Est GFR (CKD-EPI 2020) (mL/min/1.73m2) 105.82 Glucose (74-106) mg/dL 114 H Hemoglobin A1c (<5.7) % Calcium (8.5-10.1) mg/dL 9.2 Magnesium (1.8-2.4) mg/dL Total Bilirubin (0.2-1.0) mg/dL AST (15-37) U/L ALT (16-63) U/L Alkaline Phosphatase (46-116) U/L Troponin I (<or=60) ng/L NT-Pro-B Natriuret Pep (<300) pg/mL Total Protein (6.4-8.2) g/dL Albumin (3.4-5.0) g/dL Triglycerides (<150) mg/dL Total Cholesterol (<200) mg/dL LDL Cholesterol, Calc (<100) mg/dL HDL Cholesterol (40-60) mg/dL Procalcitonin ng/mL COVID-19 Source SARS-CoV-2 (PCR) (Negative) Urine Legionella Ag (Negative) Ur Strep pneumoniae Ag (Negative) Add-On Test Request Range/Units 09/20/22 09/21/22 09/21/22 06:57 06:30 06:30 WBC (4.4-10.8) 10^3/uL 15.23 H 12.34 H RBC (4.36-5.78) 10^6/uL 3.92 L 3.63 L Hgb (13.5-17.5) g/dL 10.9 L D 10.2 L Hct (40.0-50.0) % 35.7 L 32.8 L MCV (80-95) fL 91 90 MCH (27.0-33.0) pg 27.8 28.1 MCHC (32.0-36.0) % 30.5 L 31.1 L RDW (11.8-14.1) % 16.1 H 15.7 H Plt Count (130-400) 10^3/uL 411 H 326 MPV (8.0-11.0) fL 8.7 8.3 Immature Gran % 0.6 0.5 Neutrophils % 76.7 67.5 Band Neutrophils % Lymphocytes % 12.9 15.9 Atypical Lymphs % Monocytes % 8.4 10.2 Eosinophils % 1.1 5.3 Basophils % 0.3 0.6 Metamyelocytes % Myelocytes % Promyelocytes % Other Cells % Nucleated RBC % (0.0-0.3) % 0.0 0.0 Absolute Neutrophils (1.2-6.7) 10^3/uL 11.68 H 8.33 H Absolute Lymphocytes (1.2-3.4) 10^3/uL 1.96 1.96 Absolute Monocytes (0.1-0.8) 10^3/uL 1.28 H 1.26 H Absolute Eosinophils (0.0-0.7) 10^3/uL 0.17 0.65 Absolute Basophils (0.0-0.2) 10^3/uL 0.05 0.07 RBC Morphology Polychromasia Hypochromasia Poikilocytosis Basophilic Stippling Anisocytosis Microcytosis Macrocytosis Spherocytes Tear Drop Cells Ovalocytes Stomatocytes [place] Bodies [place] Cells/Echinocytes Acanthocytes (Spur) Schistocytes PT (9.3-11.0) sec INR (0.9-1.1) APTT (21.5-31.9) sec ABG Sample Site ABG pH (7.35-7.45) ABG pCO2 (35-45) mmHg ABG pO2 (80-105) mmHg ABG HCO3 (22-26) mmol/L ABG Total CO2 (23-27) mmol/L ABG O2 Saturation (95-98) % ABG Base Excess (-2-3) mmol/L VBG pH (7.31-7.41) VBG pCO2 (41-51) mmHg VBG pO2 mmHg VBG HCO3 (23-28) mmol/L VBG Total CO2 (24-29) mmol/L VBG O2 Saturation % VBG Base Excess (-2-3) mmol/L VBG Lactate (0.6-1.4) mmol/L Oxygen Liter Flow L FiO2 % Sodium (136-145) mmol/L 140 Potassium (3.5-5.1) mmol/L 3.4 L Chloride (98-107) mmol/L 97 L Carbon Dioxide (21.0-32.0) mmol/L 43.3 H Anion Gap (3-11) mmol/L -0.3 L BUN (7-18) mg/dL 13 Creatinine (0.70-1.30) mg/dL 0.8 Est GFR (CKD-EPI 2020) (mL/min/1.73m2) 105.82 Glucose (74-106) mg/dL 112 H Hemoglobin A1c (<5.7) % Calcium (8.5-10.1) mg/dL 8.8 Magnesium (1.8-2.4) mg/dL Total Bilirubin (0.2-1.0) mg/dL AST (15-37) U/L ALT (16-63) U/L Alkaline Phosphatase (46-116) U/L Troponin I (<or=60) ng/L NT-Pro-B Natriuret Pep (<300) pg/mL 1203 H Total Protein (6.4-8.2) g/dL Albumin (3.4-5.0) g/dL Triglycerides (<150) mg/dL Total Cholesterol (<200) mg/dL LDL Cholesterol, Calc (<100) mg/dL HDL Cholesterol (40-60) mg/dL Procalcitonin ng/mL COVID-19 Source SARS-CoV-2 (PCR) (Negative) Urine Legionella Ag (Negative) Ur Strep pneumoniae Ag (Negative) Add-On Test Request Range/Units 09/21/22 08:04 WBC (4.4-10.8) 10^3/uL RBC (4.36-5.78) 10^6/uL Hgb (13.5-17.5) g/dL Hct (40.0-50.0) % MCV (80-95) fL MCH (27.0-33.0) pg MCHC (32.0-36.0) % RDW (11.8-14.1) % Plt Count (130-400) 10^3/uL MPV (8.0-11.0) fL Immature Gran % Neutrophils % Band Neutrophils % Lymphocytes % Atypical Lymphs % Monocytes % Eosinophils % Basophils % Metamyelocytes % Myelocytes % Promyelocytes % Other Cells % Nucleated RBC % (0.0-0.3) % Absolute Neutrophils (1.2-6.7) 10^3/uL Absolute Lymphocytes (1.2-3.4) 10^3/uL Absolute Monocytes (0.1-0.8) 10^3/uL Absolute Eosinophils (0.0-0.7) 10^3/uL Absolute Basophils (0.0-0.2) 10^3/uL RBC Morphology Polychromasia Hypochromasia Poikilocytosis Basophilic Stippling Anisocytosis Microcytosis Macrocytosis Spherocytes Tear Drop Cells Ovalocytes Stomatocytes [place] Bodies [place] Cells/Echinocytes Acanthocytes (Spur) Schistocytes PT (9.3-11.0) sec INR (0.9-1.1) APTT (21.5-31.9) sec ABG Sample Site Left Radial ABG pH (7.35-7.45) 7.44 ABG pCO2 (35-45) mmHg 66 H* ABG pO2 (80-105) mmHg 51 L ABG HCO3 (22-26) mmol/L 44 H ABG Total CO2 (23-27) mmol/L 41 H ABG O2 Saturation (95-98) % 89 L ABG Base Excess (-2-3) mmol/L > 15 H VBG pH (7.31-7.41) VBG pCO2 (41-51) mmHg VBG pO2 mmHg VBG HCO3 (23-28) mmol/L VBG Total CO2 (24-29) mmol/L VBG O2 Saturation % VBG Base Excess (-2-3) mmol/L VBG Lactate (0.6-1.4) mmol/L Oxygen Liter Flow L 6 FiO2 % Sodium (136-145) mmol/L Potassium (3.5-5.1) mmol/L Chloride (98-107) mmol/L Carbon Dioxide (21.0-32.0) mmol/L Anion Gap (3-11) mmol/L BUN (7-18) mg/dL Creatinine (0.70-1.30) mg/dL Est GFR (CKD-EPI 2020) (mL/min/1.73m2) Glucose (74-106) mg/dL Hemoglobin A1c (<5.7) % Calcium (8.5-10.1) mg/dL Magnesium (1.8-2.4) mg/dL Total Bilirubin (0.2-1.0) mg/dL AST (15-37) U/L ALT (16-63) U/L Alkaline Phosphatase (46-116) U/L Troponin I (<or=60) ng/L NT-Pro-B Natriuret Pep (<300) pg/mL Total Protein (6.4-8.2) g/dL Albumin (3.4-5.0) g/dL Triglycerides (<150) mg/dL Total Cholesterol (<200) mg/dL LDL Cholesterol, Calc (<100) mg/dL HDL Cholesterol (40-60) mg/dL Procalcitonin ng/mL COVID-19 Source SARS-CoV-2 (PCR) (Negative) Urine Legionella Ag (Negative) Ur Strep pneumoniae Ag (Negative) Add-On Test Request
[2022-09-22] MEDS: LORazepam 1 MG TAB PO ×3 (07:49→20:08)
[2022-09-22] MEDS: Pantoprazole 40 MG TABCR PO (07:50)
[2022-09-22] MEDS: Ranolazine 500 MG TABCR PO ×2 (07:50→20:03)
[2022-09-22] MEDS: Torsemide 20 MG TAB 60 MG PO (07:50)
[2022-09-22] MEDS: Potassium Chloride 20 MEQ TABCR PO (07:51)
[2022-09-22] MEDS: busPIRone 15 MG TAB PO ×2 (07:51→20:03)
[2022-09-22] MEDS: Folic Acid 1 MG TAB 2 MG PO (07:51)
[2022-09-22] MEDS: Allopurinol 100 MG TAB PO (07:51)
[2022-09-22] MEDS: Citalopram 20 MG TAB PO (07:51)
[2022-09-22] MEDS: Aspirin E.C. 81 MG TABEC PO (07:51)
[2022-09-22] MEDS: Gabapentin 300 MG CAP PO ×3 (07:51→20:03)
[2022-09-22] MEDS: Clopidogrel 75 MG TAB PO (07:51)
[2022-09-22] MEDS: Buprenorphine/Naloxone 12 mg/3 mg FILM 1 EACH SL (07:52)
[2022-09-22] MEDS: Nicotine 21 MG/24 HR PATCH TD (07:52)
[2022-09-22] MEDS: Tiotropium/Olodaterol 10 PUFF INHALER 2 PUFF IH (08:39)
--- NOTE | 2022-09-22 10:05 | PDOC.CMPRO ---
Date of service: 09/22/22 Time of Service: 10:05 Care Management Progress Note Progress Note Text Progress Note Text: S/O:Luis was Laying in bed when CM met with him. He stated that he is not feeling at all well today. He stated that his breathing is difficult and he requires the use of his Bipap. He was wearing it at the time of the visit. luis hads been qualified for a Trilogy machine for home use but is not clear when it will arrive.CM kept the visit short as Luis's ability to communicate verbally while wearing Bipap is limited. A: Luis is a 51 year old man admitted on 09/17/22 with respiratory failure P:Anticipate Luis will return to the community when medically cleared with a resumption of home health services for nursing, PT and OT. A referral has been sent to [facility] for Options Counseling and community case management. He will follow up with his PCP, Cardiology and plan of care and transport via [facility]. CM will follow and assess for discharge concerns.
--- NOTE | 2022-09-22 13:15 | PGE_ITS ---
Date of Service Date of service: 09/22/22 Time of Service: 13:15 Assessment and Plan Assessment and plan (1) Acute on chronic heart failure with reduced ejection fraction and diastolic dysfunction: Status: Acute Assessment and plan: Oral diuretic now. Has diuresed 12kg. Echo of 04/20/22 demonstrated his LVEF to be preserved at 60 to 65% with apical wall motion abnormality. Historically he has HFrEF w/ prior LVEF 40 TO 45% and hx of VT arrest requiring AICD and 7 prior drug elution stents. AICD Current echo report showed EF of 55% with left ventricular apex and anteroapical segment akinesis. Troponin trended downward. Continue ASA and Plavix. Pulmonary/[employer] following. (2) Respiratory failure with hypoxia and hypercapnia: Status: Acute Assessment and plan: Multifactorial: CHF with exacerbation, OHS, COPD. He initially was billed as a multifocal pneumonia but it is now more clear that the primary process is CHF. Nevertheless, he recently was hospitalized for cellulitis of his groin and has leukocytosis (may be reactive to his NSTEMI and CHF) Blood cxs negative x 72 hours; d/c cefepime. Lactic acidosis; resolved. BiPAP at 16/10 with 40% when asleep. O2 goal of > 90%. ABG and spirometry completed on 09/21; supports dx of OHS. Dr Hoffman has initiated obtaining NIV support to use at . (3) Non-ST elevation [place] (NSTEMI): Status: Inactive Assessment and plan: as above. (4) COPD (chronic obstructive pulmonary disease): Status: Chronic Assessment and plan: Symbicort and Spiriva along w/ prn DuoNeb; upon discharge he will resume his Stiolto Respimat Does not appear to be in exacerbation. (5) Ischemic cardiomyopathy: Status: Chronic Assessment and plan: as above (6) CAD (coronary artery disease): Status: Chronic Assessment and plan: as above Subjective Subjective Interval history since last seen: Stated, to nursing this AM, that he didn't feel as good as usual. VSS. Napping with CPAP in place. Exam Narrative Exam Narrative: Pt asleep with BiPAP Appears comfortable. Lungs clear anteriorly. Exts: Improvement in pedal edema noted; small skin wrinkles now noticeable. Objective Last Vital Signs Temp 36.5 C 09/22/22 11:23 Pulse 60 09/22/22 11:23 Resp 18 09/22/22 11:23 BP 111/70 09/22/22 11:23 Pulse Ox 97 09/22/22 11:23 Time Spent with Patient Time Spent with Patient: <25 minutes Time was spent: preparing to see the patient(eg.review tests), obtaining and/or reviewing separately otained hiistory, ordering medications,tests, procedures, referring, communicating with other health md do resident urgent care and indepentently interpreting results
[2022-09-22] MEDS: Atorvastatin 40 MG TAB 80 MG PO (20:03)
[2022-09-22] MEDS: Magnesium Oxide 400 MG TAB PO (21:14)
[2022-09-23] VITALS (11 sets, daily range): BP systolic 103–132; BP diastolic 65–76; PULSE 56–101; RESP 10–22; TEMP 36.1–37.3; O2SAT 83–99
[2022-09-23 07:14] LABS: Abs Immature Grans 0.08 10^3/uL (0.0-0.06); Absolute Lymphocyte Count 2.43 10^3/uL (1.2-3.4); Absolute Monocyte Count 0.86 10^3/uL (0.1-0.8); Basophils % 0.8; Eosinophils % 6.7; HCT 37.6 % (40.0-50.0); HGB 11.4 g/dL (13.5-17.5); Immature Grans % 0.7; Lymphocytes % 20.2; MCH 27.5 pg (27.0-33.0); MCHC 30.3 % (32.0-36.0); MCV 91 fL (80-95); MPV 8.8 fL (8.0-11.0); Monocytes % 7.2; Neutrophils % 64.4; Platelet Count 423 10^3/uL (130-400); RBC 4.14 10^6/uL (4.36-5.78); RDW 15.5 % (11.8-14.1); RDW-SD 51.1 fL; WBC 12.01 10^3/uL (4.4-10.8)
[2022-09-23 07:20] LABS: Absolute Neutrophil Count 7.73 10^3/uL (1.2-6.7); Magnesium 2.2 mg/dL (1.8-2.4)
[2022-09-23 07:21] LABS: BUN 16 mg/dL (7-18); CREATININE 0.9 mg/dL (0.70-1.30); Calcium 9.5 mg/dL (8.5-10.1); Chloride 95 mmol/L (98-107); Estimated GFR 102.12 (mL/min/1.73m2); Glucose 112 mg/dL (74-106); Potassium 3.8 mmol/L (3.5-5.1); Sodium 141 mmol/L (136-145)
[2022-09-23 07:22] LABS: CO2 > 45.0 mmol/L (21.0-32.0)
[2022-09-23] MEDS: Tiotropium/Olodaterol 10 PUFF INHALER 2 PUFF IH (07:32)
[2022-09-23] MEDS: LORazepam 1 MG TAB PO ×3 (07:39→20:31)
[2022-09-23] MEDS: Torsemide 20 MG TAB 60 MG PO (07:39)
[2022-09-23] MEDS: Buprenorphine/Naloxone 12 mg/3 mg FILM 1 EACH SL (07:39)
[2022-09-23] MEDS: Aspirin E.C. 81 MG TABEC PO (07:39)
[2022-09-23] MEDS: Nicotine 21 MG/24 HR PATCH TD (07:39)
[2022-09-23] MEDS: Ranolazine 500 MG TABCR PO ×2 (07:40→20:31)
[2022-09-23] MEDS: Folic Acid 1 MG TAB 2 MG PO (07:40)
[2022-09-23] MEDS: Citalopram 20 MG TAB PO (07:40)
[2022-09-23] MEDS: Allopurinol 100 MG TAB PO (07:40)
[2022-09-23] MEDS: Clopidogrel 75 MG TAB PO (07:40)
[2022-09-23] MEDS: Potassium Chloride 20 MEQ TABCR PO (07:40)
[2022-09-23] MEDS: Gabapentin 300 MG CAP PO ×3 (07:40→20:31)
[2022-09-23] MEDS: Pantoprazole 40 MG TABCR PO (07:40)
[2022-09-23] MEDS: busPIRone 15 MG TAB PO ×2 (07:40→20:31)
--- NOTE | 2022-09-23 15:51 | PDOC.CMPRO ---
Date of service: 09/23/22 Time of Service: 15:52 Care Management Progress Note Progress Note Text Progress Note Text: S/O: Luis was sleeping with his BiPAP on when CM attempted to visit; CM did not wake him. Per provider, he is not medically cleared for discharge. He is currently on 3LO2. Pulmonology is working on getting his Trilogy approved through [facility]. He is being evaluated by PT today. CM will continue to follow. A: Luis is a 51 year old man admitted on 09/17/22 with respiratory failure P:Anticipate Luis will return to the community when medically cleared with a resumption of home health services for nursing, PT and OT. A referral has been sent to [facility] for Options Counseling and community case management. He will follow up with his PCP, Cardiology and plan of care and transport via [facility]. CM will follow and assess for discharge concerns.
--- NOTE | 2022-09-23 16:00 | PT.INIE ---
Date of service: 09/23/22 Time of Service: 15:18 PT Notes Visit Reasons: acute hypoxic and hypercarbic respiratory failure, Physical Therapy Inpatient Initial Evaluation Date: 09/23/2022 Referring Doctor: Andriy Collier MD PT Orders: PT CONSULT: Eval/Treat Precautions: Fall. Standard. Activity as tolerated. Patient Profile/Admitting Diagnosis: Pramod is a 51-year-old male who presented to the ED on 09/17/2022 due to shortness of breath. Patient is admitted for management of acute on chronic heart failure with HFrEF with most current ejection fraction of 55%, respiratory failure with hypoxia and hypercapnia, NSTEMI, COPD, and ischemic cardiomyopathy. PMHX: All Active Problems? Acute respiratory failure with hypoxia (Acute) Multifocal pneumonia (Acute) Somnolence (Acute) Hypokalemia (Acute) Lactic acidosis (Acute) Thrombocytosis (Acute) Leukocytosis (Acute) CHF exacerbation (Acute) Respiratory failure with hypoxia and hypercapnia (Acute) Brittany gangrene (Acute) Non-ST elevation [place] (NSTEMI) (Acute) Diastolic heart failure (Acute) Consolidation of left lower lobe of lung (Acute) Anxiety (Acute) Cellulitis of leg, left (Acute) Angina pectoris (Chronic) GERD (gastroesophageal reflux disease) (Chronic) Depression (Chronic) Morbid obesity (Chronic) AICD (automatic cardioverter/defibrillator) present (Acute) placed at [facility] for ischemic dilated cardiomyopathy [employer]? Margaret MACDONALD 01/27/21 [facility] Hhyperlipidemia (Acute) ETOH abuse (Chronic) Drug dependence (Chronic) COPD (chronic obstructive pulmonary disease) (Chronic) Acute on chronic heart failure with reduced ejection fraction and diastolic dysfunction (Acute) Ischemic cardiomyopathy (Chronic) Afib (Chronic) Tobacco use disorder (Acute) Hx of hyperlipidemia (Acute) HTN (hypertension) (Chronic) CAD (coronary artery disease) (Chronic) Medical History? Alcohol use disorder, severe, dependence [facility] 01/21 Cardiac arrest CHF (congestive heart failure) Dental infection Exertional chest pain Homelessness Medication monitoring encounter Pacemaker Pulmonary nodules Surgical History? History of coronary artery stent placement History of hernia repair History of right knee joint replacement History of tonsillectomy Social History/Home Situation: Lives alone in a private home with one-step to enter. Recently . Independent with all aspects of ADLs prior to admission Equipment Owned/DME: None Subjective: Reports still feeling sick but overall better than previous days. Denies pain. Did report shortness of breath and fatigue after walking activity. Her Nurse Swati, CPAP machine may be off for PT session. Objective: General Observation: Supine in bed with HOB at [address] machine in place. Mental Status: Alert and oriented as to person, place, time, and purpose. Able to pay attention, focus, and respond appropriately. Pain: Denies Vital Signs: Closely monitored by nursing staff ROM: Right Upper Extremity: Shoulder Flexion WFL. Shoulder abduction WFL. Elbow flexion WFL. Wrist flexion WFL. Functional opening and closing of hand WFL. Left Upper Extremity: Shoulder Flexion WFL. Shoulder abduction WFL. Elbow flexion WFL. Wrist flexion WFL. Functional opening and closing of hand WFL. Right Lower Extremity: Hip flexion WFL. Hip abduction WFL. Knee flexion WFL. Ankle dorsiflexion WFL. Ankle plantarflexion WFL. Left Lower Extremity: Hip flexion WFL. Hip abduction WFL. Knee flexion WFL. Ankle dorsiflexion WFL. Ankle plantarflexion WFL. Strength: Right Upper Extremity: Shoulder flexors 4/5. Shoulder abductors 4/5. Elbow flexors 4/5. Elbow extensors 5/5. Traffic Controller Cable strong. Left Upper Extremity: Shoulder flexors 4/5. Shoulder abductors 4/5. Elbow flexors 4/5. Elbow extensors 5/5. Traffic Controller Cable strong. Right Lower Extremity: Hip flexors 4/5. Hip abductors 4/5. Knee flexors 5/5. Knee extensors 5/5. Ankle dorsiflexors 5/5. Ankle plantarflexors 5/5. Left Lower Extremity: Hip flexors 4/5. Hip abductors 4/5. Knee flexors 5/5. Knee extensors 5/5. Ankle dorsiflexors 5/5. Ankle plantarflexors 5/5. Bed Mobility/Transfers: Rolling independent Supine to sit independent Sit to supine independent Sit to stand independent Stand to sit independent Reclining chair to bed independent Gait: Instructed patient with level surface ambulation of 100 feet requiring standby assist. No assistive device needed however gait speed minimally reduced. 3 L of oxygen via NC needed. Patient did report shortness of breath and fatigue after activity. No loss of balance. No report of chest pain. Balance: Static Sitting: Normal Dynamic Sitting: Normal Static Standing: Good Dynamic Standing: Good Special Tests: Mobility Limitations Standardized Measure [facility] AM-PAC 6 clicks Basic Mobility Inpatient Short Form: Raw Score: 23 CMS Score: 11% deficit 30-second chair rise: 7x 4-stage balance test: 10 seconds for feet together, unable to do semi-tandem, full tandem and one-legged stance due to feeling weak Informed Consent/Education: Patient was instructed in purpose of PT consult and plan of care. Agreeable to proceed with established PT POC to achieve personal goals. Assessment: Low endurance requires rest. Will plan on seeing patient for progression of ambulation distance and strengthening exercises for bilateral lower extremities. Patient presents with clinical signs and symptoms consistent with current/admitting diagnoses that have resulted to mobility limitations, gait instability, generalized weakness, and overall ADL decline as demonstrated by the following impairment level findings: 1. Decreased strength to B LE major muscle groups 2. Impaired standing balance 3. Impaired activity tolerance 4. Shortness of breath 5. Fatigue Impairments are contributing to the following functional limitations: 1. Difficulty with ambulation 2. Increased completion time for mobility ADL performance 3. Increased risk for falls Patient is assessed as a 53977 moderate complexity based on the following: History: 51-year-old male with past medical history as indicated above Examination: Demonstrable impairment in strength, balance, and mobility level with underlying impairments and functional limitations as exhibited above as well as deficit score of 11% utilizing the [facility] Mobility Inpatient Short Form Presentation: Evolving Decision Makin moderate complexity Goals: Goals X1 week 1. Independent gait on level surface with use of no AD for at least 300 feet without report of pain nor dyspnea 2. Independent stair negotiation while holding onto 1 rails for at least 3 steps without report of pain nor dyspnea 3. Independent with home exercise program 4. Good static and dynamic standing balance/tolerance Plan of Care/Treatment Plan: 1-2x/day, 7 days/week x 1 week. Plan of care has been reviewed with the [employer] providing the service under Physical Therapy direction. Initiate Physical Therapy intervention for pain management as needed, strengthening, bed mobility, transfers, gait, stairs, balance training, and use of assistive device. DISCHARGE RECOMMENDATIONS: [X] Home with no services. [] Home with services [specify] [] Home with outpatient PT [] [] SNF for continued rehabilitation [] [] [facility] Disciplined Language Analyst [facility] [] [] SNF versus LTC based on ability to participate and progress [] [X] Outpatient cardiac rehab program TREATMENT CODE/TIME: 48495 x 20 minutes, 43106 x 16 minutes beginning at 15:18 PM. Thank you for the opportunity to participate in the care of this patient. Rosangela Bansal PT, DPT, CLT [facility] [place], [place]
--- NOTE | 2022-09-23 17:43 | W.PM.PROGNOT ---
Date of Service Date of service: 09/23/22 Time of Service: 17:43 Assessment and Plan Assessment and plan (1) Acute on chronic heart failure with reduced ejection fraction and diastolic dysfunction: Status: Acute Assessment and plan: Oral diuretic now. Has diuresed 12kg. Echo of 04/20/22 demonstrated his LVEF to be preserved at 60 to 65% with apical wall motion abnormality. Historically he has HFrEF w/ prior LVEF 40 TO 45% and hx of VT arrest requiring AICD and 7 prior drug elution stents. AICD Current echo report showed EF of 55% with left ventricular apex and anteroapical segment akinesis. Troponin trended downward. Continue ASA and Plavix. Pulmonary/Injection Maintenance Technician following. (2) Respiratory failure with hypoxia and hypercapnia: Status: Acute Assessment and plan: Multifactorial: CHF with exacerbation, OHS, COPD. He initially was billed as a multifocal pneumonia but it is now more clear that the primary process is CHF. Nevertheless, he recently was hospitalized for cellulitis of his groin and has leukocytosis (may be reactive to his NSTEMI and CHF) Blood cxs negative x 72 hours; d/c cefepime. Lactic acidosis; resolved. BiPAP at 16/10 with 40% when asleep. O2 goal of > 90%. 95% on 2 liters at rest currently. ABG and spirometry completed on 09/21; supports dx of OHS. Trelegy device prescribed and should be available late this week. (3) Non-ST elevation MS (NSTEMI): Status: Inactive Assessment and plan: as above. (4) COPD (chronic obstructive pulmonary disease): Status: Chronic Assessment and plan: Symbicort and Spiriva along w/ prn DuoNeb; upon discharge he will resume his Stiolto Respimat Does not appear to be in exacerbation. (5) Ischemic cardiomyopathy: Status: Chronic Assessment and plan: as above (6) CAD (coronary artery disease): Status: Chronic Assessment and plan: as above Subjective Subjective Patient reports: no new complaints, tolerating a regular diet and afebrile; denies nausea, vomiting or shortness of breath Interval history since last seen: Walked in hallway x2 today. Exam Narrative Exam Narrative: NAD. Sitting on edge of bed. Appears comfortable. Lungs clear anteriorly. Distant breath sounds. Exts: Improvement in pedal edema noted; small skin wrinkles now noticeable. Psych: Affect is bright. Objective Last Vital Signs Temp 36.3 C L 09/23/22 16:31 Pulse 56 L 09/23/22 16:31 Resp 20 09/23/22 16:31 BP 103/65 09/23/22 16:31 Pulse Ox 98 09/23/22 16:31 Laboratory Results - last 24 hr 09/23/22 09/23/22 09/23/22 06:30 06:30 06:30 WBC 12.01 H RBC 4.14 L Hgb 11.4 L Hct 37.6 L MCV 91 MCH 27.5 MCHC 30.3 L RDW 15.5 H Plt Count 423 H MPV 8.8 Immature Gran % 0.7 Neutrophils % 64.4 Lymphocytes % 20.2 Monocytes % 7.2 Eosinophils % 6.7 Basophils % 0.8 Nucleated RBC % 0.0 Absolute Neutrophils 7.73 H Absolute Lymphocytes 2.43 Absolute Monocytes 0.86 H Absolute Eosinophils 0.80 H Absolute Basophils 0.10 Sodium 141 Potassium 3.8 Chloride 95 L Carbon Dioxide > 45.0 H Anion Gap BUN 16 Creatinine 0.9 Est GFR (CKD-EPI 2020) 102.12 Glucose 112 H Calcium 9.5 Magnesium 2.2 Time Spent with Patient Time Spent with Patient: 25-34 minutes Time was spent: preparing to see the patient(eg.review tests), ordering medications,tests, procedures, referring, communicating with other health care manager cna, indepentently interpreting results, counseling the patient and care coordination
[2022-09-23] MEDS: Atorvastatin 40 MG TAB 80 MG PO (20:31)
[2022-09-23] MEDS: Mylanta Suspension 30 ML CUP PO (20:31)
[2022-09-23] MEDS: Magnesium Oxide 400 MG TAB PO (20:31)
[2022-09-24] VITALS (12 sets, daily range): BP systolic 114–130; BP diastolic 57–83; PULSE 55–75; RESP 10–20; TEMP 36.2–37.6; O2SAT 87–96
--- NOTE | 2022-09-24 06:59 | PGE_ITS ---
Assessment and Plan Assessment and plan (1) Respiratory failure with hypoxia and hypercapnia: Status: Acute (2) CHF exacerbation: Status: Acute (3) COPD (chronic obstructive pulmonary disease): Status: Chronic (4) CAD (coronary artery disease): Status: Chronic (5) Morbid obesity: Status: Chronic (6) AICD (automatic cardioverter/defibrillator) present: Status: Acute Assessment and plan: This is a 51 yo man with ischemic CHF s/p AICD, COPD and a recent [facility] [place] for cellulitis. Initially, he was thought to have pneumonia/s epsis secondary to COPD exacerbation, acute on chronic hypoxic and hypercapnic respiratory failure and cellulitis. I felt him to be more in CHF exacerbation. After aggressive diureses his respiratory status and CRX improved. Blood cultures returned negative and abx were stopped. Repeat echo was completed without significantly new findings in comparison to prior studies. EF stable at an estimated 55%. I have ordered him for Trilogy for OHS/restrictive lung disease. He appears to be looking good for discharge in the next day. He is ok to be discharged prior to physically receiving the Trilogy in my opinion. Acute on Chronic Hypoxic and Hypercapnic respiratory failure - CHF exacerbation, OHS, COPD - continue BiPAP at night - Qualifies for Trilogy - has been ordered - supplemental O2 for sats >90% - he may need to be discharged with O2 COPD - spirometry today with restriction - would recommend full PFT's as outpatient - continue Duonebs prn - continue home Stiolto when able - albuterol HFA prn CHF Exacerbaiton - diuresis per hospitalist team - has AICD General Date Of Service Date of service: 09/24/22 Time of Service: 07:00 Reason for Consult: Respiratory failure Subjective Note Note: Ray continues to do well today. His Trilogy has been ordered and we are awaiting insurance approval. Exam Narrative Exam Narrative: Gen: NAD, normal respiratory effort, obese HENT: PERRL, nasal turbinates normal without erythema or inflammation, moist oral mucosa, Mallampati 2, No LAD or JVD Chest: No respiratory distress, normal appearance of chest, clear to auscultation bilaterally, improved crackles Heart: regular rate and rhythym, no murmurs, rubs or gallops Abdomen: Non-distended, soft, non tender Extremities: No clubbing, + edema, cyanosis, rashes Neuro: AAOx3 , non focal Psych: cooperative, appropriate mental affect Objective Last Vital Signs Temp 36.6 C 09/24/22 03:00 Pulse 60 09/24/22 04:06 Resp 15 09/24/22 04:06 BP 120/83 09/24/22 03:00 Pulse Ox 92 09/24/22 04:06 Laboratory Results - last 24 hr 09/23/22 09/23/22 09/23/22 06:30 06:30 06:30 WBC 12.01 H RBC 4.14 L Hgb 11.4 L Hct 37.6 L MCV 91 MCH 27.5 MCHC 30.3 L RDW 15.5 H Plt Count 423 H MPV 8.8 Immature Gran % 0.7 Neutrophils % 64.4 Lymphocytes % 20.2 Monocytes % 7.2 Eosinophils % 6.7 Basophils % 0.8 Nucleated RBC % 0.0 Absolute Neutrophils 7.73 H Absolute Lymphocytes 2.43 Absolute Monocytes 0.86 H Absolute Eosinophils 0.80 H Absolute Basophils 0.10 Sodium 141 Potassium 3.8 Chloride 95 L Carbon Dioxide > 45.0 H Anion Gap BUN 16 Creatinine 0.9 Est GFR (CKD-EPI 2020) 102.12 Glucose 112 H Calcium 9.5 Magnesium 2.2 Results Medications Medications: Active Medications Generic Name Dose Route Start Last Admin Trade Name Freq PRN Reason Stop Dose Admin Acetaminophen 0 mg 09/17/22 12:02 09/21/22 14:04 Acetaminophen 325 Mg Tab PO 325 mg Q4H PRN PRN Administration Al Hydrox/Mg Hydrox/Simethicone 30 ml 09/17/22 12:02 09/23/22 20:31 Mylanta Suspension 30 Ml Cup PO 30 ml Q2H PRN PRN Administration Albuterol Sulfate 2.5 mg 09/17/22 12:02 Albuterol 2.5 Mg/3 Ml Inh Soln Vial UPD Q2H PRN PRN Albuterol/Ipratropium 3 ml 09/17/22 18:42 Albuterol/Ipratropium 3 Ml Upd Vial UPD Q6H PRN PRN wheezing Allopurinol 100 mg 09/17/22 17:00 09/23/22 07:40 Allopurinol 100 Mg Tab PO 100 mg DAILY ALFREDITO Administration Aspirin 81 mg 09/18/22 08:30 09/23/22 07:39 Aspirin E.C. 81 Mg Tabec PO 81 mg DAILY ALFREDITO Administration Atorvastatin Calcium 80 mg 09/17/22 20:00 09/23/22 20:31 Atorvastatin 40 Mg Tab PO 80 mg QPM ALFREDITO Administration Buprenorphine/Naloxone 1 each 09/19/22 08:30 09/23/22 07:39 Buprenorphine/Naloxone 12 Mg/3 Mg Film SL 1 each DAILY ALFREDITO Administration Buspirone HCl 15 mg 09/17/22 20:00 09/23/22 20:31 Buspirone 15 Mg Tab PO 15 mg BID ALFREDITO Administration Citalopram Hydrobromide 20 mg 09/18/22 08:30 09/23/22 07:40 Citalopram 20 Mg Tab PO 20 mg DAILY ALFREDITO Administration Clopidogrel Bisulfate 75 mg 09/17/22 16:40 09/23/22 07:40 Clopidogrel 75 Mg Tab PO 75 mg DAILY ALFREDITO Administration Clotrimazole 40 gm/ Zinc Oxide 0 gm 09/17/22 20:00 09/23/22 20:31 40 gm/ Vitamin A/Vitamin D 40 TP 1 applicatio gm TID ALFREDITO Administration Device 1 each 09/17/22 17:00 Inhaler, Assist Device [facility] DIRECTED [facility] Dimethicone/Zinc Oxide 0 gm 09/17/22 11:57 Branden Protect Cream 142 Gm Tube TP PRN PRN Docusate Sodium 100 mg 09/17/22 12:02 Docusate Sodium 100 Mg Cap PO TID PRN PRN Folic Acid 2 mg 09/18/22 08:30 09/23/22 07:40 Folic Acid 1 Mg Tab PO 2 mg DAILY ALFREDITO Administration Gabapentin 300 mg 09/17/22 20:00 09/23/22 20:31 Gabapentin 300 Mg Cap PO 300 mg TID ALFREDITO Administration Sodium Chloride 500 mls @ 0 mls/hr 09/17/22 12:02 09/17/22 17:42 Saline 500ml Bag IV 1 mls/hr PRN PRN Administration As Directed IV Miscellaneous Supplies 1 each 09/17/22 12:15 Iv Access IV DIRECTED ALFREDITO Lorazepam 1 mg 09/20/22 14:37 09/23/22 20:31 Lorazepam 1 Mg Tab PO 1 mg TID PRN PRN Administration Magnesium Hydroxide 30 ml 09/17/22 12:02 Milk Of Magnesia 30 Ml Cup PO DAILY PRN PRN Magnesium Oxide 400 mg 09/18/22 22:00 09/23/22 20:31 Magnesium Oxide 400 Mg Tab PO 400 mg HS ALFREDITO Administration Nicotine 21 mg 09/19/22 08:30 09/23/22 07:39 Nicotine 21 Mg/24 Hr Patch TD 21 mg DAILY ALFREDITO Administration Pantoprazole Sodium 40 mg 09/17/22 17:00 09/23/22 07:40 Pantoprazole 40 Mg Tabcr PO 40 mg DAILY@0730 ALFREDITO Administration Polyethylene Glycol 17 gm 09/17/22 12:02 Polyethylene Glycol 3350 17 Gm Packet PO DAILY PRN PRN Constipation Potassium Chloride 20 meq 09/21/22 08:30 09/23/22 07:40 Potassium Chloride 20 Meq Tabcr PO 20 meq DAILY ALFREDITO Administration Ranolazine 500 mg 09/18/22 20:00 09/23/22 20:31 Ranolazine 500 Mg Tabcr PO 500 mg BID ALFREDITO Administration Sodium Chloride 0 ml 09/17/22 12:02 09/21/22 08:39 Normal Saline Flush 10 Ml Syr IVP 20 ml PRN PRN Administration Sodium Chloride 44 ml 09/19/22 11:23 Sodium Chloride-Nasal [place]-Adult 44 Ml Btl NS QID PRN PRN Tiotropium [place]/Olodaterol 2 puff 09/18/22 08:30 09/23/22 07:32 Tiotropium/Olodaterol 10 Puff Inhaler IH 2 inh DAILY ALFREDITO Administration Torsemide 60 mg 09/21/22 11:30 09/23/22 07:39 Torsemide 20 Mg Tab PO 60 mg DAILY ALFREDITO Administration Allergies hydromorphone [From Dilaudid] Allergy (Verified 08/19/22 10:14) Labs 09/24/22 07:40 09/24/22 07:40 Labs: 09/18/22 16:10 Sputum - Expectorated Sputum Culture - Final Normal Krista Bernice Albicans 09/18/22 16:10 Sputum - Expectorated Gram Stain - Final 09/17/22 09:50 Blood Blood Culture - Final NO GROWTH 120 HOURS 09/17/22 10:18 Blood Blood Culture - Final NO GROWTH 120 HOURS 09/17/22 23:30 Nose MRSA Screen - Final Laboratory Tests Range/Units 09/17/22 09/17/22 09/17/22 07:53 07:53 07:53 WBC (4.4-10.8) 10^3/uL 14.70 H RBC (4.36-5.78) 10^6/uL 5.02 Hgb (13.5-17.5) g/dL 14.0 Hct (40.0-50.0) % 46.6 MCV (80-95) fL 93 MCH (27.0-33.0) pg 27.9 MCHC (32.0-36.0) % 30.0 L RDW (11.8-14.1) % 15.9 H Plt Count (130-400) 10^3/uL 619 H MPV (8.0-11.0) fL 8.3 Immature Gran % 0.3 Neutrophils % 78.8 Band Neutrophils % Lymphocytes % 12.1 Atypical Lymphs % Monocytes % 2.7 Eosinophils % 5.4 Basophils % 0.7 Metamyelocytes % Myelocytes % Promyelocytes % Other Cells % Nucleated RBC % (0.0-0.3) % 0.0 Absolute Neutrophils (1.2-6.7) 10^3/uL 11.58 H Absolute Lymphocytes (1.2-3.4) 10^3/uL 1.78 Absolute Monocytes (0.1-0.8) 10^3/uL 0.40 Absolute Eosinophils (0.0-0.7) 10^3/uL 0.79 H Absolute Basophils (0.0-0.2) 10^3/uL 0.10 RBC Morphology Polychromasia Hypochromasia Poikilocytosis Basophilic Stippling Anisocytosis Microcytosis Macrocytosis Spherocytes Tear Drop Cells Ovalocytes Stomatocytes [place] Bodies [place] Cells/Echinocytes Acanthocytes (Spur) Schistocytes PT (9.3-11.0) sec INR (0.9-1.1) APTT (21.5-31.9) sec ABG Sample Site ABG pH (7.35-7.45) ABG pCO2 (35-45) mmHg ABG pO2 (80-105) mmHg ABG HCO3 (22-26) mmol/L ABG Total CO2 (23-27) mmol/L ABG O2 Saturation (95-98) % ABG Base Excess (-2-3) mmol/L VBG pH (7.31-7.41) VBG pCO2 (41-51) mmHg VBG pO2 mmHg VBG HCO3 (23-28) mmol/L VBG Total CO2 (24-29) mmol/L VBG O2 Saturation % VBG Base Excess (-2-3) mmol/L VBG Lactate (0.6-1.4) mmol/L 3.3 H* Oxygen Liter Flow L FiO2 % Sodium (136-145) mmol/L 137 Potassium (3.5-5.1) mmol/L 3.3 L Chloride (98-107) mmol/L 95 L Carbon Dioxide (21.0-32.0) mmol/L 38.3 H Anion Gap (3-11) mmol/L 3.7 BUN (7-18) mg/dL 9 Creatinine (0.70-1.30) mg/dL 1.1 Est GFR (CKD-EPI 2020) (mL/min/1.73m2) 80.27 Glucose (74-106) mg/dL 189 H Hemoglobin A1c (<5.7) % Calcium (8.5-10.1) mg/dL 9.2 Magnesium (1.8-2.4) mg/dL 1.8 Total Bilirubin (0.2-1.0) mg/dL 0.4 AST (15-37) U/L 20 ALT (16-63) U/L 25 Alkaline Phosphatase (46-116) U/L 120 H Troponin I (<or=60) ng/L < 50 NT-Pro-B Natriuret Pep (<300) pg/mL 1439 H Total Protein (6.4-8.2) g/dL 9.0 H Albumin (3.4-5.0) g/dL 3.3 L Triglycerides (<150) mg/dL Total Cholesterol (<200) mg/dL LDL Cholesterol, Calc (<100) mg/dL HDL Cholesterol (40-60) mg/dL Procalcitonin ng/mL < 0.1 COVID-19 Source SARS-CoV-2 (PCR) (Negative) Urine Legionella Ag (Negative) Ur Strep pneumoniae Ag (Negative) Add-On Test Request Range/Units 09/17/22 09/17/22 09/17/22 08:46 10:00 10:48 WBC (4.4-10.8) 10^3/uL RBC (4.36-5.78) 10^6/uL Hgb (13.5-17.5) g/dL Hct (40.0-50.0) % MCV (80-95) fL MCH (27.0-33.0) pg MCHC (32.0-36.0) % RDW (11.8-14.1) % Plt Count (130-400) 10^3/uL MPV (8.0-11.0) fL Immature Gran % Neutrophils % Band Neutrophils % Lymphocytes % Atypical Lymphs % Monocytes % Eosinophils % Basophils % Metamyelocytes % Myelocytes % Promyelocytes % Other Cells % Nucleated RBC % (0.0-0.3) % Absolute Neutrophils (1.2-6.7) 10^3/uL Absolute Lymphocytes (1.2-3.4) 10^3/uL Absolute Monocytes (0.1-0.8) 10^3/uL Absolute Eosinophils (0.0-0.7) 10^3/uL Absolute Basophils (0.0-0.2) 10^3/uL RBC Morphology Polychromasia Hypochromasia Poikilocytosis Basophilic Stippling Anisocytosis Microcytosis Macrocytosis Spherocytes Tear Drop Cells Ovalocytes Stomatocytes [place] Bodies [place] Cells/Echinocytes Acanthocytes (Spur) Schistocytes PT (9.3-11.0) sec INR (0.9-1.1) APTT (21.5-31.9) sec ABG Sample Site Left Radial Left Radial ABG pH (7.35-7.45) 7.27 L 7.27 L ABG pCO2 (35-45) mmHg 83 H* 83 H* ABG pO2 (80-105) mmHg 73 L 68 L ABG HCO3 (22-26) mmol/L 38 H 38 H ABG Total CO2 (23-27) mmol/L 35 H 36 H ABG O2 Saturation (95-98) % 94 L 93 L ABG Base Excess (-2-3) mmol/L 11 H 12 H VBG pH (7.31-7.41) VBG pCO2 (41-51) mmHg VBG pO2 mmHg VBG HCO3 (23-28) mmol/L VBG Total CO2 (24-29) mmol/L VBG O2 Saturation % VBG Base Excess (-2-3) mmol/L VBG Lactate (0.6-1.4) mmol/L Oxygen Liter Flow L FiO2 % 55 Sodium (136-145) mmol/L Potassium (3.5-5.1) mmol/L Chloride (98-107) mmol/L Carbon Dioxide (21.0-32.0) mmol/L Anion Gap (3-11) mmol/L BUN (7-18) mg/dL Creatinine (0.70-1.30) mg/dL Est GFR (CKD-EPI 2020) (mL/min/1.73m2) Glucose (74-106) mg/dL Hemoglobin A1c (<5.7) % Calcium (8.5-10.1) mg/dL Magnesium (1.8-2.4) mg/dL Total Bilirubin (0.2-1.0) mg/dL AST (15-37) U/L ALT (16-63) U/L Alkaline Phosphatase (46-116) U/L Troponin I (<or=60) ng/L 756 H* NT-Pro-B Natriuret Pep (<300) pg/mL Total Protein (6.4-8.2) g/dL Albumin (3.4-5.0) g/dL Triglycerides (<150) mg/dL Total Cholesterol (<200) mg/dL LDL Cholesterol, Calc (<100) mg/dL HDL Cholesterol (40-60) mg/dL Procalcitonin ng/mL COVID-19 Source SARS-CoV-2 (PCR) (Negative) Urine Legionella Ag (Negative) Ur Strep pneumoniae Ag (Negative) Add-On Test Request Range/Units 09/17/22 09/17/22 09/17/22 11:25 13:45 14:59 WBC (4.4-10.8) 10^3/uL RBC (4.36-5.78) 10^6/uL Hgb (13.5-17.5) g/dL Hct (40.0-50.0) % MCV (80-95) fL MCH (27.0-33.0) pg MCHC (32.0-36.0) % RDW (11.8-14.1) % Plt Count (130-400) 10^3/uL MPV (8.0-11.0) fL Immature Gran % Neutrophils % Band Neutrophils % Lymphocytes % Atypical Lymphs % Monocytes % Eosinophils % Basophils % Metamyelocytes % Myelocytes % Promyelocytes % Other Cells % Nucleated RBC % (0.0-0.3) % Absolute Neutrophils (1.2-6.7) 10^3/uL Absolute Lymphocytes (1.2-3.4) 10^3/uL Absolute Monocytes (0.1-0.8) 10^3/uL Absolute Eosinophils (0.0-0.7) 10^3/uL Absolute Basophils (0.0-0.2) 10^3/uL RBC Morphology Polychromasia Hypochromasia Poikilocytosis Basophilic Stippling Anisocytosis Microcytosis Macrocytosis Spherocytes Tear Drop Cells Ovalocytes Stomatocytes [place] Bodies [place] Cells/Echinocytes Acanthocytes (Spur) Schistocytes PT (9.3-11.0) sec INR (0.9-1.1) APTT (21.5-31.9) sec ABG Sample Site ABG pH (7.35-7.45) ABG pCO2 (35-45) mmHg ABG pO2 (80-105) mmHg ABG HCO3 (22-26) mmol/L ABG Total CO2 (23-27) mmol/L ABG O2 Saturation (95-98) % ABG Base Excess (-2-3) mmol/L VBG pH (7.31-7.41) 7.33 VBG pCO2 (41-51) mmHg 73 H* VBG pO2 mmHg 96 VBG HCO3 (23-28) mmol/L 38 H VBG Total CO2 (24-29) mmol/L 35 H VBG O2 Saturation % 99 VBG Base Excess (-2-3) mmol/L 12 H VBG Lactate (0.6-1.4) mmol/L 3.3 H* Oxygen Liter Flow L FiO2 % Sodium (136-145) mmol/L Potassium (3.5-5.1) mmol/L Chloride (98-107) mmol/L Carbon Dioxide (21.0-32.0) mmol/L Anion Gap (3-11) mmol/L BUN (7-18) mg/dL Creatinine (0.70-1.30) mg/dL Est GFR (CKD-EPI 2020) (mL/min/1.73m2) Glucose (74-106) mg/dL Hemoglobin A1c (<5.7) % Calcium (8.5-10.1) mg/dL Magnesium (1.8-2.4) mg/dL Total Bilirubin (0.2-1.0) mg/dL AST (15-37) U/L ALT (16-63) U/L Alkaline Phosphatase (46-116) U/L Troponin I (<or=60) ng/L NT-Pro-B Natriuret Pep (<300) pg/mL Total Protein (6.4-8.2) g/dL Albumin (3.4-5.0) g/dL Triglycerides (<150) mg/dL Total Cholesterol (<200) mg/dL LDL Cholesterol, Calc (<100) mg/dL HDL Cholesterol (40-60) mg/dL Procalcitonin ng/mL COVID-19 Source Nasal/Nares SARS-CoV-2 (PCR) (Negative) Negative Urine Legionella Ag (Negative) Ur Strep pneumoniae Ag (Negative) Add-On Test Request Range/Units 09/17/22 09/17/22 09/17/22 14:59 15:06 16:14 WBC (4.4-10.8) 10^3/uL RBC (4.36-5.78) 10^6/uL Hgb (13.5-17.5) g/dL Hct (40.0-50.0) % MCV (80-95) fL MCH (27.0-33.0) pg MCHC (32.0-36.0) % RDW (11.8-14.1) % Plt Count (130-400) 10^3/uL MPV (8.0-11.0) fL Immature Gran % Neutrophils % Band Neutrophils % Lymphocytes % Atypical Lymphs % Monocytes % Eosinophils % Basophils % Metamyelocytes % Myelocytes % Promyelocytes % Other Cells % Nucleated RBC % (0.0-0.3) % Absolute Neutrophils (1.2-6.7) 10^3/uL Absolute Lymphocytes (1.2-3.4) 10^3/uL Absolute Monocytes (0.1-0.8) 10^3/uL Absolute Eosinophils (0.0-0.7) 10^3/uL Absolute Basophils (0.0-0.2) 10^3/uL RBC Morphology Polychromasia Hypochromasia Poikilocytosis Basophilic Stippling Anisocytosis Microcytosis Macrocytosis Spherocytes Tear Drop Cells Ovalocytes Stomatocytes [place] Bodies [place] Cells/Echinocytes Acanthocytes (Spur) Schistocytes PT (9.3-11.0) sec 11.6 H INR (0.9-1.1) 1.1 APTT (21.5-31.9) sec 25.4 ABG Sample Site ABG pH (7.35-7.45) ABG pCO2 (35-45) mmHg ABG pO2 (80-105) mmHg ABG HCO3 (22-26) mmol/L ABG Total CO2 (23-27) mmol/L ABG O2 Saturation (95-98) % ABG Base Excess (-2-3) mmol/L VBG pH (7.31-7.41) VBG pCO2 (41-51) mmHg VBG pO2 mmHg VBG HCO3 (23-28) mmol/L VBG Total CO2 (24-29) mmol/L VBG O2 Saturation % VBG Base Excess (-2-3) mmol/L VBG Lactate (0.6-1.4) mmol/L Oxygen Liter Flow L FiO2 % Sodium (136-145) mmol/L Potassium (3.5-5.1) mmol/L Chloride (98-107) mmol/L Carbon Dioxide (21.0-32.0) mmol/L Anion Gap (3-11) mmol/L BUN (7-18) mg/dL Creatinine (0.70-1.30) mg/dL Est GFR (CKD-EPI 2020) (mL/min/1.73m2) Glucose (74-106) mg/dL Hemoglobin A1c (<5.7) % Calcium (8.5-10.1) mg/dL Magnesium (1.8-2.4) mg/dL Total Bilirubin (0.2-1.0) mg/dL AST (15-37) U/L ALT (16-63) U/L Alkaline Phosphatase (46-116) U/L Troponin I (<or=60) ng/L 1027 H* Cancelled NT-Pro-B Natriuret Pep (<300) pg/mL Total Protein (6.4-8.2) g/dL Albumin (3.4-5.0) g/dL Triglycerides (<150) mg/dL Total Cholesterol (<200) mg/dL LDL Cholesterol, Calc (<100) mg/dL HDL Cholesterol (40-60) mg/dL Procalcitonin ng/mL COVID-19 Source SARS-CoV-2 (PCR) (Negative) Urine Legionella Ag (Negative) Ur Strep pneumoniae Ag (Negative) Add-On Test Request Range/Units 09/17/22 09/17/22 09/17/22 18:03 18:03 23:05 WBC (4.4-10.8) 10^3/uL RBC (4.36-5.78) 10^6/uL Hgb (13.5-17.5) g/dL Hct (40.0-50.0) % MCV (80-95) fL MCH (27.0-33.0) pg MCHC (32.0-36.0) % RDW (11.8-14.1) % Plt Count (130-400) 10^3/uL MPV (8.0-11.0) fL Immature Gran % Neutrophils % Band Neutrophils % Lymphocytes % Atypical Lymphs % Monocytes % Eosinophils % Basophils % Metamyelocytes % Myelocytes % Promyelocytes % Other Cells % Nucleated RBC % (0.0-0.3) % Absolute Neutrophils (1.2-6.7) 10^3/uL Absolute Lymphocytes (1.2-3.4) 10^3/uL Absolute Monocytes (0.1-0.8) 10^3/uL Absolute Eosinophils (0.0-0.7) 10^3/uL Absolute Basophils (0.0-0.2) 10^3/uL RBC Morphology Polychromasia Hypochromasia Poikilocytosis Basophilic Stippling Anisocytosis Microcytosis Macrocytosis Spherocytes Tear Drop Cells Ovalocytes Stomatocytes [place] Bodies [place] Cells/Echinocytes Acanthocytes (Spur) Schistocytes PT (9.3-11.0) sec INR (0.9-1.1) APTT (21.5-31.9) sec 27.1 ABG Sample Site ABG pH (7.35-7.45) ABG pCO2 (35-45) mmHg ABG pO2 (80-105) mmHg ABG HCO3 (22-26) mmol/L ABG Total CO2 (23-27) mmol/L ABG O2 Saturation (95-98) % ABG Base Excess (-2-3) mmol/L VBG pH (7.31-7.41) VBG pCO2 (41-51) mmHg VBG pO2 mmHg VBG HCO3 (23-28) mmol/L VBG Total CO2 (24-29) mmol/L VBG O2 Saturation % VBG Base Excess (-2-3) mmol/L VBG Lactate (0.6-1.4) mmol/L Oxygen Liter Flow L FiO2 % Sodium (136-145) mmol/L 138 Potassium (3.5-5.1) mmol/L 3.9 Chloride (98-107) mmol/L 96 L Carbon Dioxide (21.0-32.0) mmol/L 37.9 H Anion Gap (3-11) mmol/L 4.1 BUN (7-18) mg/dL 11 Creatinine (0.70-1.30) mg/dL 1.1 Est GFR (CKD-EPI 2020) (mL/min/1.73m2) 80.27 Glucose (74-106) mg/dL 189 H Hemoglobin A1c (<5.7) % Calcium (8.5-10.1) mg/dL 8.7 Magnesium (1.8-2.4) mg/dL Total Bilirubin (0.2-1.0) mg/dL AST (15-37) U/L ALT (16-63) U/L Alkaline Phosphatase (46-116) U/L Troponin I (<or=60) ng/L 995 H* NT-Pro-B Natriuret Pep (<300) pg/mL Total Protein (6.4-8.2) g/dL Albumin (3.4-5.0) g/dL Triglycerides (<150) mg/dL Total Cholesterol (<200) mg/dL LDL Cholesterol, Calc (<100) mg/dL HDL Cholesterol (40-60) mg/dL Procalcitonin ng/mL COVID-19 Source SARS-CoV-2 (PCR) (Negative) Urine Legionella Ag (Negative) Ur Strep pneumoniae Ag (Negative) Add-On Test Request Range/Units 09/18/22 09/18/22 09/18/22 01:30 06:20 06:20 WBC (4.4-10.8) 10^3/uL 20.54 H RBC (4.36-5.78) 10^6/uL 4.09 L Hgb (13.5-17.5) g/dL 11.3 L D Hct (40.0-50.0) % 37.5 L MCV (80-95) fL 92 MCH (27.0-33.0) pg 27.6 MCHC (32.0-36.0) % 30.1 L RDW (11.8-14.1) % 16.0 H Plt Count (130-400) 10^3/uL 453 H MPV (8.0-11.0) fL 8.6 Immature Gran % 0.5 Neutrophils % 88.9 Band Neutrophils % Lymphocytes % 5.4 Atypical Lymphs % Monocytes % 4.7 Eosinophils % 0.3 Basophils % 0.2 Metamyelocytes % Myelocytes % Promyelocytes % Other Cells % Nucleated RBC % (0.0-0.3) % 0.0 Absolute Neutrophils (1.2-6.7) 10^3/uL 18.26 H Absolute Lymphocytes (1.2-3.4) 10^3/uL 1.11 L Absolute Monocytes (0.1-0.8) 10^3/uL 0.97 H Absolute Eosinophils (0.0-0.7) 10^3/uL 0.06 Absolute Basophils (0.0-0.2) 10^3/uL 0.04 RBC Morphology Polychromasia Hypochromasia Poikilocytosis Basophilic Stippling Anisocytosis Microcytosis Macrocytosis Spherocytes Tear Drop Cells Ovalocytes Stomatocytes [place] Bodies [place] Cells/Echinocytes Acanthocytes (Spur) Schistocytes PT (9.3-11.0) sec INR (0.9-1.1) APTT (21.5-31.9) sec ABG Sample Site ABG pH (7.35-7.45) ABG pCO2 (35-45) mmHg ABG pO2 (80-105) mmHg ABG HCO3 (22-26) mmol/L ABG Total CO2 (23-27) mmol/L ABG O2 Saturation (95-98) % ABG Base Excess (-2-3) mmol/L VBG pH (7.31-7.41) VBG pCO2 (41-51) mmHg VBG pO2 mmHg VBG HCO3 (23-28) mmol/L VBG Total CO2 (24-29) mmol/L VBG O2 Saturation % VBG Base Excess (-2-3) mmol/L VBG Lactate (0.6-1.4) mmol/L Oxygen Liter Flow L FiO2 % Sodium (136-145) mmol/L 141 Potassium (3.5-5.1) mmol/L 4.4 Chloride (98-107) mmol/L 98 Carbon Dioxide (21.0-32.0) mmol/L 40.8 H Anion Gap (3-11) mmol/L 2.2 L BUN (7-18) mg/dL 15 Creatinine (0.70-1.30) mg/dL 0.9 Est GFR (CKD-EPI 2020) (mL/min/1.73m2) 102.12 Glucose (74-106) mg/dL 144 H Hemoglobin A1c (<5.7) % Calcium (8.5-10.1) mg/dL 8.4 L Magnesium (1.8-2.4) mg/dL Total Bilirubin (0.2-1.0) mg/dL 0.4 AST (15-37) U/L 17 ALT (16-63) U/L 15 L Alkaline Phosphatase (46-116) U/L 81 Troponin I (<or=60) ng/L NT-Pro-B Natriuret Pep (<300) pg/mL Total Protein (6.4-8.2) g/dL 7.6 Albumin (3.4-5.0) g/dL 2.4 L Triglycerides (<150) mg/dL 55 Total Cholesterol (<200) mg/dL 95 LDL Cholesterol, Calc (<100) mg/dL 36 HDL Cholesterol (40-60) mg/dL 48 Procalcitonin ng/mL COVID-19 Source SARS-CoV-2 (PCR) (Negative) Urine Legionella Ag (Negative) Negative Ur Strep pneumoniae Ag (Negative) Negative Add-On Test Request Range/Units 09/18/22 09/18/22 09/18/22 06:20 06:20 06:20 WBC (4.4-10.8) 10^3/uL RBC (4.36-5.78) 10^6/uL Hgb (13.5-17.5) g/dL Hct (40.0-50.0) % MCV (80-95) fL MCH (27.0-33.0) pg MCHC (32.0-36.0) % RDW (11.8-14.1) % Plt Count (130-400) 10^3/uL MPV (8.0-11.0) fL Immature Gran % Neutrophils % Band Neutrophils % Lymphocytes % Atypical Lymphs % Monocytes % Eosinophils % Basophils % Metamyelocytes % Myelocytes % Promyelocytes % Other Cells % Nucleated RBC % (0.0-0.3) % Absolute Neutrophils (1.2-6.7) 10^3/uL Absolute Lymphocytes (1.2-3.4) 10^3/uL Absolute Monocytes (0.1-0.8) 10^3/uL Absolute Eosinophils (0.0-0.7) 10^3/uL Absolute Basophils (0.0-0.2) 10^3/uL RBC Morphology Polychromasia Hypochromasia Poikilocytosis Basophilic Stippling Anisocytosis Microcytosis Macrocytosis Spherocytes Tear Drop Cells Ovalocytes Stomatocytes [place] Bodies [place] Cells/Echinocytes Acanthocytes (Spur) Schistocytes PT (9.3-11.0) sec INR (0.9-1.1) APTT (21.5-31.9) sec 37.9 H ABG Sample Site ABG pH (7.35-7.45) ABG pCO2 (35-45) mmHg ABG pO2 (80-105) mmHg ABG HCO3 (22-26) mmol/L ABG Total CO2 (23-27) mmol/L ABG O2 Saturation (95-98) % ABG Base Excess (-2-3) mmol/L VBG pH (7.31-7.41) VBG pCO2 (41-51) mmHg VBG pO2 mmHg VBG HCO3 (23-28) mmol/L VBG Total CO2 (24-29) mmol/L VBG O2 Saturation % VBG Base Excess (-2-3) mmol/L VBG Lactate (0.6-1.4) mmol/L Oxygen Liter Flow L FiO2 % Sodium (136-145) mmol/L Potassium (3.5-5.1) mmol/L Chloride (98-107) mmol/L Carbon Dioxide (21.0-32.0) mmol/L Anion Gap (3-11) mmol/L BUN (7-18) mg/dL Creatinine (0.70-1.30) mg/dL Est GFR (CKD-EPI 2020) (mL/min/1.73m2) Glucose (74-106) mg/dL Hemoglobin A1c (<5.7) % 5.8 H Calcium (8.5-10.1) mg/dL Magnesium (1.8-2.4) mg/dL Total Bilirubin (0.2-1.0) mg/dL AST (15-37) U/L ALT (16-63) U/L Alkaline Phosphatase (46-116) U/L Troponin I (<or=60) ng/L NT-Pro-B Natriuret Pep (<300) pg/mL Total Protein (6.4-8.2) g/dL Albumin (3.4-5.0) g/dL Triglycerides (<150) mg/dL Total Cholesterol (<200) mg/dL LDL Cholesterol, Calc (<100) mg/dL HDL Cholesterol (40-60) mg/dL Procalcitonin ng/mL COVID-19 Source SARS-CoV-2 (PCR) (Negative) Urine Legionella Ag (Negative) Ur Strep pneumoniae Ag (Negative) Add-On Test Request DONE Range/Units 09/18/22 09/18/22 09/18/22 06:20 10:40 12:30 WBC (4.4-10.8) 10^3/uL RBC (4.36-5.78) 10^6/uL Hgb (13.5-17.5) g/dL Hct (40.0-50.0) % MCV (80-95) fL MCH (27.0-33.0) pg MCHC (32.0-36.0) % RDW (11.8-14.1) % Plt Count (130-400) 10^3/uL MPV (8.0-11.0) fL Immature Gran % Neutrophils % Band Neutrophils % Lymphocytes % Atypical Lymphs % Monocytes % Eosinophils % Basophils % Metamyelocytes % Myelocytes % Promyelocytes % Other Cells % Nucleated RBC % (0.0-0.3) % Absolute Neutrophils (1.2-6.7) 10^3/uL Absolute Lymphocytes (1.2-3.4) 10^3/uL Absolute Monocytes (0.1-0.8) 10^3/uL Absolute Eosinophils (0.0-0.7) 10^3/uL Absolute Basophils (0.0-0.2) 10^3/uL RBC Morphology Polychromasia Hypochromasia Poikilocytosis Basophilic Stippling Anisocytosis Microcytosis Macrocytosis Spherocytes Tear Drop Cells Ovalocytes Stomatocytes [place] Bodies [place] Cells/Echinocytes Acanthocytes (Spur) Schistocytes PT (9.3-11.0) sec INR (0.9-1.1) APTT (21.5-31.9) sec Cancelled ABG Sample Site ABG pH (7.35-7.45) ABG pCO2 (35-45) mmHg ABG pO2 (80-105) mmHg ABG HCO3 (22-26) mmol/L ABG Total CO2 (23-27) mmol/L ABG O2 Saturation (95-98) % ABG Base Excess (-2-3) mmol/L VBG pH (7.31-7.41) VBG pCO2 (41-51) mmHg VBG pO2 mmHg VBG HCO3 (23-28) mmol/L VBG Total CO2 (24-29) mmol/L VBG O2 Saturation % VBG Base Excess (-2-3) mmol/L VBG Lactate (0.6-1.4) mmol/L 3.2 H* Oxygen Liter Flow L FiO2 % Sodium (136-145) mmol/L Potassium (3.5-5.1) mmol/L Chloride (98-107) mmol/L Carbon Dioxide (21.0-32.0) mmol/L Anion Gap (3-11) mmol/L BUN (7-18) mg/dL Creatinine (0.70-1.30) mg/dL Est GFR (CKD-EPI 2020) (mL/min/1.73m2) Glucose (74-106) mg/dL Hemoglobin A1c (<5.7) % Calcium (8.5-10.1) mg/dL Magnesium (1.8-2.4) mg/dL Total Bilirubin (0.2-1.0) mg/dL AST (15-37) U/L ALT (16-63) U/L Alkaline Phosphatase (46-116) U/L Troponin I (<or=60) ng/L 619 H* NT-Pro-B Natriuret Pep (<300) pg/mL 3108 H Total Protein (6.4-8.2) g/dL Albumin (3.4-5.0) g/dL Triglycerides (<150) mg/dL Total Cholesterol (<200) mg/dL LDL Cholesterol, Calc (<100) mg/dL HDL Cholesterol (40-60) mg/dL Procalcitonin ng/mL COVID-19 Source SARS-CoV-2 (PCR) (Negative) Urine Legionella Ag (Negative) Ur Strep pneumoniae Ag (Negative) Add-On Test Request Range/Units 09/19/22 09/19/22 09/19/22 05:35 12:03 12:03 WBC (4.4-10.8) 10^3/uL Cancelled RBC (4.36-5.78) 10^6/uL Cancelled Hgb (13.5-17.5) g/dL Cancelled Hct (40.0-50.0) % Cancelled MCV (80-95) fL Cancelled MCH (27.0-33.0) pg Cancelled MCHC (32.0-36.0) % Cancelled RDW (11.8-14.1) % Cancelled Plt Count (130-400) 10^3/uL Cancelled MPV (8.0-11.0) fL Cancelled Immature Gran % Cancelled Neutrophils % Cancelled Band Neutrophils % Cancelled Lymphocytes % Cancelled Atypical Lymphs % Cancelled Monocytes % Cancelled Eosinophils % Cancelled Basophils % Cancelled Metamyelocytes % Cancelled Myelocytes % Cancelled Promyelocytes % Cancelled Other Cells % Cancelled Nucleated RBC % (0.0-0.3) % Cancelled Absolute Neutrophils (1.2-6.7) 10^3/uL Cancelled Absolute Lymphocytes (1.2-3.4) 10^3/uL Cancelled Absolute Monocytes (0.1-0.8) 10^3/uL Cancelled Absolute Eosinophils (0.0-0.7) 10^3/uL Cancelled Absolute Basophils (0.0-0.2) 10^3/uL Cancelled RBC Morphology Cancelled Polychromasia Cancelled Hypochromasia Cancelled Poikilocytosis Cancelled Basophilic Stippling Cancelled Anisocytosis Cancelled Microcytosis Cancelled Macrocytosis Cancelled Spherocytes Cancelled Tear Drop Cells Cancelled Ovalocytes Cancelled Stomatocytes Cancelled [place] Bodies Cancelled [place] Cells/Echinocytes Cancelled Acanthocytes (Spur) Cancelled Schistocytes Cancelled PT (9.3-11.0) sec INR (0.9-1.1) APTT (21.5-31.9) sec ABG Sample Site ABG pH (7.35-7.45) ABG pCO2 (35-45) mmHg ABG pO2 (80-105) mmHg ABG HCO3 (22-26) mmol/L ABG Total CO2 (23-27) mmol/L ABG O2 Saturation (95-98) % ABG Base Excess (-2-3) mmol/L VBG pH (7.31-7.41) VBG pCO2 (41-51) mmHg VBG pO2 mmHg VBG HCO3 (23-28) mmol/L VBG Total CO2 (24-29) mmol/L VBG O2 Saturation % VBG Base Excess (-2-3) mmol/L VBG Lactate (0.6-1.4) mmol/L 2.7 H* Oxygen Liter Flow L FiO2 % Sodium (136-145) mmol/L 140 Potassium (3.5-5.1) mmol/L 3.8 Chloride (98-107) mmol/L 96 L Carbon Dioxide (21.0-32.0) mmol/L 39.4 H Anion Gap (3-11) mmol/L 4.6 BUN (7-18) mg/dL 17 Creatinine (0.70-1.30) mg/dL 0.9 Est GFR (CKD-EPI 2020) (mL/min/1.73m2) 102.12 Glucose (74-106) mg/dL 102 Hemoglobin A1c (<5.7) % Calcium (8.5-10.1) mg/dL 9.7 Magnesium (1.8-2.4) mg/dL Total Bilirubin (0.2-1.0) mg/dL AST (15-37) U/L ALT (16-63) U/L Alkaline Phosphatase (46-116) U/L Troponin I (<or=60) ng/L NT-Pro-B Natriuret Pep (<300) pg/mL Total Protein (6.4-8.2) g/dL Albumin (3.4-5.0) g/dL Triglycerides (<150) mg/dL Total Cholesterol (<200) mg/dL LDL Cholesterol, Calc (<100) mg/dL HDL Cholesterol (40-60) mg/dL Procalcitonin ng/mL COVID-19 Source SARS-CoV-2 (PCR) (Negative) Urine Legionella Ag (Negative) Ur Strep pneumoniae Ag (Negative) Add-On Test Request Range/Units 09/19/22 09/20/22 09/20/22 12:03 06:08 06:57 WBC (4.4-10.8) 10^3/uL 18.71 H RBC (4.36-5.78) 10^6/uL 4.65 Hgb (13.5-17.5) g/dL 13.0 L Hct (40.0-50.0) % 42.5 MCV (80-95) fL 91 MCH (27.0-33.0) pg 28.0 MCHC (32.0-36.0) % 30.6 L RDW (11.8-14.1) % 16.0 H Plt Count (130-400) 10^3/uL 470 H MPV (8.0-11.0) fL 8.3 Immature Gran % 0.6 Neutrophils % 83.9 Band Neutrophils % Lymphocytes % 9.2 Atypical Lymphs % Monocytes % 5.8 Eosinophils % 0.2 Basophils % 0.3 Metamyelocytes % Myelocytes % Promyelocytes % Other Cells % Nucleated RBC % (0.0-0.3) % 0.0 Absolute Neutrophils (1.2-6.7) 10^3/uL 15.70 H Absolute Lymphocytes (1.2-3.4) 10^3/uL 1.72 Absolute Monocytes (0.1-0.8) 10^3/uL 1.09 H Absolute Eosinophils (0.0-0.7) 10^3/uL 0.04 Absolute Basophils (0.0-0.2) 10^3/uL 0.06 RBC Morphology Polychromasia Hypochromasia Poikilocytosis Basophilic Stippling Anisocytosis Microcytosis Macrocytosis Spherocytes Tear Drop Cells Ovalocytes Stomatocytes [place] Bodies [place] Cells/Echinocytes Acanthocytes (Spur) Schistocytes PT (9.3-11.0) sec INR (0.9-1.1) APTT (21.5-31.9) sec ABG Sample Site ABG pH (7.35-7.45) ABG pCO2 (35-45) mmHg ABG pO2 (80-105) mmHg ABG HCO3 (22-26) mmol/L ABG Total CO2 (23-27) mmol/L ABG O2 Saturation (95-98) % ABG Base Excess (-2-3) mmol/L VBG pH (7.31-7.41) VBG pCO2 (41-51) mmHg VBG pO2 mmHg VBG HCO3 (23-28) mmol/L VBG Total CO2 (24-29) mmol/L VBG O2 Saturation % VBG Base Excess (-2-3) mmol/L VBG Lactate (0.6-1.4) mmol/L 0.9 Oxygen Liter Flow L FiO2 % Sodium (136-145) mmol/L 140 Potassium (3.5-5.1) mmol/L 3.6 Chloride (98-107) mmol/L 98 Carbon Dioxide (21.0-32.0) mmol/L 41.7 H Anion Gap (3-11) mmol/L 0.3 L BUN (7-18) mg/dL 15 Creatinine (0.70-1.30) mg/dL 0.8 Est GFR (CKD-EPI 2020) (mL/min/1.73m2) 105.82 Glucose (74-106) mg/dL 114 H Hemoglobin A1c (<5.7) % Calcium (8.5-10.1) mg/dL 9.2 Magnesium (1.8-2.4) mg/dL Total Bilirubin (0.2-1.0) mg/dL AST (15-37) U/L ALT (16-63) U/L Alkaline Phosphatase (46-116) U/L Troponin I (<or=60) ng/L NT-Pro-B Natriuret Pep (<300) pg/mL Total Protein (6.4-8.2) g/dL Albumin (3.4-5.0) g/dL Triglycerides (<150) mg/dL Total Cholesterol (<200) mg/dL LDL Cholesterol, Calc (<100) mg/dL HDL Cholesterol (40-60) mg/dL Procalcitonin ng/mL COVID-19 Source SARS-CoV-2 (PCR) (Negative) Urine Legionella Ag (Negative) Ur Strep pneumoniae Ag (Negative) Add-On Test Request Range/Units 09/20/22 09/21/22 09/21/22 06:57 06:30 06:30 WBC (4.4-10.8) 10^3/uL 15.23 H 12.34 H RBC (4.36-5.78) 10^6/uL 3.92 L 3.63 L Hgb (13.5-17.5) g/dL 10.9 L D 10.2 L Hct (40.0-50.0) % 35.7 L 32.8 L MCV (80-95) fL 91 90 MCH (27.0-33.0) pg 27.8 28.1 MCHC (32.0-36.0) % 30.5 L 31.1 L RDW (11.8-14.1) % 16.1 H 15.7 H Plt Count (130-400) 10^3/uL 411 H 326 MPV (8.0-11.0) fL 8.7 8.3 Immature Gran % 0.6 0.5 Neutrophils % 76.7 67.5 Band Neutrophils % Lymphocytes % 12.9 15.9 Atypical Lymphs % Monocytes % 8.4 10.2 Eosinophils % 1.1 5.3 Basophils % 0.3 0.6 Metamyelocytes % Myelocytes % Promyelocytes % Other Cells % Nucleated RBC % (0.0-0.3) % 0.0 0.0 Absolute Neutrophils (1.2-6.7) 10^3/uL 11.68 H 8.33 H Absolute Lymphocytes (1.2-3.4) 10^3/uL 1.96 1.96 Absolute Monocytes (0.1-0.8) 10^3/uL 1.28 H 1.26 H Absolute Eosinophils (0.0-0.7) 10^3/uL 0.17 0.65 Absolute Basophils (0.0-0.2) 10^3/uL 0.05 0.07 RBC Morphology Polychromasia Hypochromasia Poikilocytosis Basophilic Stippling Anisocytosis Microcytosis Macrocytosis Spherocytes Tear Drop Cells Ovalocytes Stomatocytes [place] Bodies [place] Cells/Echinocytes Acanthocytes (Spur) Schistocytes PT (9.3-11.0) sec INR (0.9-1.1) APTT (21.5-31.9) sec ABG Sample Site ABG pH (7.35-7.45) ABG pCO2 (35-45) mmHg ABG pO2 (80-105) mmHg ABG HCO3 (22-26) mmol/L ABG Total CO2 (23-27) mmol/L ABG O2 Saturation (95-98) % ABG Base Excess (-2-3) mmol/L VBG pH (7.31-7.41) VBG pCO2 (41-51) mmHg VBG pO2 mmHg VBG HCO3 (23-28) mmol/L VBG Total CO2 (24-29) mmol/L VBG O2 Saturation % VBG Base Excess (-2-3) mmol/L VBG Lactate (0.6-1.4) mmol/L Oxygen Liter Flow L FiO2 % Sodium (136-145) mmol/L 140 Potassium (3.5-5.1) mmol/L 3.4 L Chloride (98-107) mmol/L 97 L Carbon Dioxide (21.0-32.0) mmol/L 43.3 H Anion Gap (3-11) mmol/L -0.3 L BUN (7-18) mg/dL 13 Creatinine (0.70-1.30) mg/dL 0.8 Est GFR (CKD-EPI 2020) (mL/min/1.73m2) 105.82 Glucose (74-106) mg/dL 112 H Hemoglobin A1c (<5.7) % Calcium (8.5-10.1) mg/dL 8.8 Magnesium (1.8-2.4) mg/dL Total Bilirubin (0.2-1.0) mg/dL AST (15-37) U/L ALT (16-63) U/L Alkaline Phosphatase (46-116) U/L Troponin I (<or=60) ng/L NT-Pro-B Natriuret Pep (<300) pg/mL 1203 H Total Protein (6.4-8.2) g/dL Albumin (3.4-5.0) g/dL Triglycerides (<150) mg/dL Total Cholesterol (<200) mg/dL LDL Cholesterol, Calc (<100) mg/dL HDL Cholesterol (40-60) mg/dL Procalcitonin ng/mL COVID-19 Source SARS-CoV-2 (PCR) (Negative) Urine Legionella Ag (Negative) Ur Strep pneumoniae Ag (Negative) Add-On Test Request Range/Units 09/21/22 09/23/22 09/23/22 08:04 06:30 06:30 WBC (4.4-10.8) 10^3/uL 12.01 H RBC (4.36-5.78) 10^6/uL 4.14 L Hgb (13.5-17.5) g/dL 11.4 L Hct (40.0-50.0) % 37.6 L MCV (80-95) fL 91 MCH (27.0-33.0) pg 27.5 MCHC (32.0-36.0) % 30.3 L RDW (11.8-14.1) % 15.5 H Plt Count (130-400) 10^3/uL 423 H MPV (8.0-11.0) fL 8.8 Immature Gran % 0.7 Neutrophils % 64.4 Band Neutrophils % Lymphocytes % 20.2 Atypical Lymphs % Monocytes % 7.2 Eosinophils % 6.7 Basophils % 0.8 Metamyelocytes % Myelocytes % Promyelocytes % Other Cells % Nucleated RBC % (0.0-0.3) % 0.0 Absolute Neutrophils (1.2-6.7) 10^3/uL 7.73 H Absolute Lymphocytes (1.2-3.4) 10^3/uL 2.43 Absolute Monocytes (0.1-0.8) 10^3/uL 0.86 H Absolute Eosinophils (0.0-0.7) 10^3/uL 0.80 H Absolute Basophils (0.0-0.2) 10^3/uL 0.10 RBC Morphology Polychromasia Hypochromasia Poikilocytosis Basophilic Stippling Anisocytosis Microcytosis Macrocytosis Spherocytes Tear Drop Cells Ovalocytes Stomatocytes [place] Bodies [place] Cells/Echinocytes Acanthocytes (Spur) Schistocytes PT (9.3-11.0) sec INR (0.9-1.1) APTT (21.5-31.9) sec ABG Sample Site Left Radial ABG pH (7.35-7.45) 7.44 ABG pCO2 (35-45) mmHg 66 H* ABG pO2 (80-105) mmHg 51 L ABG HCO3 (22-26) mmol/L 44 H ABG Total CO2 (23-27) mmol/L 41 H ABG O2 Saturation (95-98) % 89 L ABG Base Excess (-2-3) mmol/L > 15 H VBG pH (7.31-7.41) VBG pCO2 (41-51) mmHg VBG pO2 mmHg VBG HCO3 (23-28) mmol/L VBG Total CO2 (24-29) mmol/L VBG O2 Saturation % VBG Base Excess (-2-3) mmol/L VBG Lactate (0.6-1.4) mmol/L Oxygen Liter Flow L 6 FiO2 % Sodium (136-145) mmol/L 141 Potassium (3.5-5.1) mmol/L 3.8 Chloride (98-107) mmol/L 95 L Carbon Dioxide (21.0-32.0) mmol/L > 45.0 H Anion Gap (3-11) mmol/L BUN (7-18) mg/dL 16 Creatinine (0.70-1.30) mg/dL 0.9 Est GFR (CKD-EPI 2020) (mL/min/1.73m2) 102.12 Glucose (74-106) mg/dL 112 H Hemoglobin A1c (<5.7) % Calcium (8.5-10.1) mg/dL 9.5 Magnesium (1.8-2.4) mg/dL Total Bilirubin (0.2-1.0) mg/dL AST (15-37) U/L ALT (16-63) U/L Alkaline Phosphatase (46-116) U/L Troponin I (<or=60) ng/L NT-Pro-B Natriuret Pep (<300) pg/mL Total Protein (6.4-8.2) g/dL Albumin (3.4-5.0) g/dL Triglycerides (<150) mg/dL Total Cholesterol (<200) mg/dL LDL Cholesterol, Calc (<100) mg/dL HDL Cholesterol (40-60) mg/dL Procalcitonin ng/mL COVID-19 Source SARS-CoV-2 (PCR) (Negative) Urine Legionella Ag (Negative) Ur Strep pneumoniae Ag (Negative) Add-On Test Request Range/Units 09/23/22 06:30 WBC (4.4-10.8) 10^3/uL RBC (4.36-5.78) 10^6/uL Hgb (13.5-17.5) g/dL Hct (40.0-50.0) % MCV (80-95) fL MCH (27.0-33.0) pg MCHC (32.0-36.0) % RDW (11.8-14.1) % Plt Count (130-400) 10^3/uL MPV (8.0-11.0) fL Immature Gran % Neutrophils % Band Neutrophils % Lymphocytes % Atypical Lymphs % Monocytes % Eosinophils % Basophils % Metamyelocytes % Myelocytes % Promyelocytes % Other Cells % Nucleated RBC % (0.0-0.3) % Absolute Neutrophils (1.2-6.7) 10^3/uL Absolute Lymphocytes (1.2-3.4) 10^3/uL Absolute Monocytes (0.1-0.8) 10^3/uL Absolute Eosinophils (0.0-0.7) 10^3/uL Absolute Basophils (0.0-0.2) 10^3/uL RBC Morphology Polychromasia Hypochromasia Poikilocytosis Basophilic Stippling Anisocytosis Microcytosis Macrocytosis Spherocytes Tear Drop Cells Ovalocytes Stomatocytes [place] Bodies [place] Cells/Echinocytes Acanthocytes (Spur) Schistocytes PT (9.3-11.0) sec INR (0.9-1.1) APTT (21.5-31.9) sec ABG Sample Site ABG pH (7.35-7.45) ABG pCO2 (35-45) mmHg ABG pO2 (80-105) mmHg ABG HCO3 (22-26) mmol/L ABG Total CO2 (23-27) mmol/L ABG O2 Saturation (95-98) % ABG Base Excess (-2-3) mmol/L VBG pH (7.31-7.41) VBG pCO2 (41-51) mmHg VBG pO2 mmHg VBG HCO3 (23-28) mmol/L VBG Total CO2 (24-29) mmol/L VBG O2 Saturation % VBG Base Excess (-2-3) mmol/L VBG Lactate (0.6-1.4) mmol/L Oxygen Liter Flow L FiO2 % Sodium (136-145) mmol/L Potassium (3.5-5.1) mmol/L Chloride (98-107) mmol/L Carbon Dioxide (21.0-32.0) mmol/L Anion Gap (3-11) mmol/L BUN (7-18) mg/dL Creatinine (0.70-1.30) mg/dL Est GFR (CKD-EPI 2020) (mL/min/1.73m2) Glucose (74-106) mg/dL Hemoglobin A1c (<5.7) % Calcium (8.5-10.1) mg/dL Magnesium (1.8-2.4) mg/dL 2.2 Total Bilirubin (0.2-1.0) mg/dL AST (15-37) U/L ALT (16-63) U/L Alkaline Phosphatase (46-116) U/L Troponin I (<or=60) ng/L NT-Pro-B Natriuret Pep (<300) pg/mL Total Protein (6.4-8.2) g/dL Albumin (3.4-5.0) g/dL Triglycerides (<150) mg/dL Total Cholesterol (<200) mg/dL LDL Cholesterol, Calc (<100) mg/dL HDL Cholesterol (40-60) mg/dL Procalcitonin ng/mL COVID-19 Source SARS-CoV-2 (PCR) (Negative) Urine Legionella Ag (Negative) Ur Strep pneumoniae Ag (Negative) Add-On Test Request
[2022-09-24] MEDS: Tiotropium/Olodaterol 10 PUFF INHALER 2 PUFF IH (07:40)
[2022-09-24 08:13] LABS: Abs Immature Grans 0.07 10^3/uL (0.0-0.06); Absolute Basophil Count 0.08 10^3/uL (0.0-0.2); Absolute Eosinophil Count 0.65 10^3/uL (0.0-0.7); Absolute Monocyte Count 0.62 10^3/uL (0.1-0.8); Basophils % 0.7; Eosinophils % 5.5; HCT 40.2 % (40.0-50.0); HGB 12.5 g/dL (13.5-17.5); Immature Grans % 0.6; Lymphocytes % 16.8; MCHC 31.1 % (32.0-36.0); MCV 90 fL (80-95); MPV 8.9 fL (8.0-11.0); Monocytes % 5.3; Neutrophils % 71.1; Platelet Count 519 10^3/uL (130-400); RBC 4.46 10^6/uL (4.36-5.78); RDW 15.3 % (11.8-14.1); RDW-SD 50.7 fL; WBC 11.76 10^3/uL (4.4-10.8)
[2022-09-24 08:15] LABS: Absolute Lymphocyte Count 1.98 10^3/uL (1.2-3.4); Absolute Neutrophil Count 8.36 10^3/uL (1.2-6.7)
[2022-09-24 08:25] LABS: Anion Gap 0.3 mmol/L (3-11); BUN 15 mg/dL (7-18); CO2 43.7 mmol/L (21.0-32.0); CREATININE 0.9 mg/dL (0.70-1.30); Calcium 9.8 mg/dL (8.5-10.1); Chloride 95 mmol/L (98-107); Estimated GFR 102.12 (mL/min/1.73m2); Glucose 119 mg/dL (74-106); Magnesium 2.3 mg/dL (1.8-2.4); Potassium 3.7 mmol/L (3.5-5.1); Sodium 139 mmol/L (136-145)
[2022-09-24] MEDS: Clopidogrel 75 MG TAB PO (08:43)
[2022-09-24] MEDS: Pantoprazole 40 MG TABCR PO (08:43)
[2022-09-24] MEDS: Folic Acid 1 MG TAB 2 MG PO (08:43)
[2022-09-24] MEDS: Potassium Chloride 20 MEQ TABCR PO (08:44)
[2022-09-24] MEDS: Gabapentin 300 MG CAP PO ×3 (08:44→20:06)
[2022-09-24] MEDS: LORazepam 1 MG TAB PO ×3 (08:44→20:06)
[2022-09-24] MEDS: busPIRone 15 MG TAB PO ×2 (08:44→20:06)
[2022-09-24] MEDS: Allopurinol 100 MG TAB PO (08:44)
[2022-09-24] MEDS: Citalopram 20 MG TAB PO (08:44)
[2022-09-24] MEDS: Ranolazine 500 MG TABCR PO ×2 (08:44→20:06)
[2022-09-24] MEDS: Aspirin E.C. 81 MG TABEC PO (08:44)
[2022-09-24] MEDS: Torsemide 20 MG TAB 60 MG PO (08:44)
[2022-09-24] MEDS: Nicotine 21 MG/24 HR PATCH TD (08:45)
[2022-09-24] MEDS: Buprenorphine/Naloxone 12 mg/3 mg FILM 1 EACH SL (08:45)
--- NOTE | 2022-09-24 08:55 | PDOC.CMPRO ---
Date of service: 09/24/22 Time of Service: 08:55 Care Management Progress Note Progress Note Text Progress Note Text: S/O: Luis was lying in bed when CM met with him. He was receiving oxygen via nasal cannula instead of bipap and stated that he is doing and feeling much better. Luis has been approved for a Trilogy and should receive the device tomorrow morning. He will need nasal O2 at home; 2L at rest and 4L with activity.Luis will have home health services resumed and will likely be discharged tomorrow. CM will coordinate transportation with [facility]. A: Luis is a 51 year old man admitted on 09/17/22 with respiratory failure P:Anticipate Luis will return to the community when medically cleared with a resumption of home health services for nursing, PT and OT. A referral has been sent to [facility] for [facility] and community case management. He will follow up with his PCP, Cardiology and plan of care and transport via [facility]. CM will follow and assess for discharge concerns.
--- NOTE | 2022-09-24 16:54 | PTTR_ITS ---
Time of Service: 15:18 PT Notes Visit Reasons: acute hypoxic and hypercarbic respiratory failure, Inpatient Physical Therapy Treatment Note [facility] Date: 09/24/22 PRECAUTIONS: Fall, Standard, Activity as tolerated. SUBJECTIVE: patient feeling better, supine in bed, agreeable to therapy. OBJECTIVE: PAIN: none reported BED MOBILITY/TRANSFERS Rolling L/R: Independent Supine-sit: Independent Sit-supine: Independent Sit-stand: contact guard Stand-sit: contact guard Bed-Chair: contact guard Chair-bed: contact guard GAIT Assistive Device: single point cane Weight bearing: full Assist: contact guard Distance: 16 feet Deviation: decreased step length, adequate step height, verbal cues for O2 management. Patient became notably short of breath with effort, recovered quickly, did not report any dizziness etc. THEREX: 2x10 heel raises, toe raises, seated marches, standing marches, long arc quads, hip abduction, hip adduction (3 second holds). 2x5 sit to stands. Therapist observed for momentary muscle fatigue, verbal cues for optimal muscle recruitment and activity performance. ASSESSMENT: Patient tolerates therapy well, returns to supine in bed at end of treatment. Expresses thinking he will be discharged home in the morning. Wishes to check cell phone, which this therapist helps him retrieve, as well as notifying a nurse that he requires a body press operator for the phone. PLAN: Create HEP to review in the morning. Continue strengthening per plan of care until patient is medically ready for discharge. TREATMENT CODE/TIME: [id number] TherEx 34 minutes beginning at 1518
--- NOTE | 2022-09-24 17:37 | W.PM.PROGNOT ---
Date of Service Date of service: 09/24/22 Time of Service: 17:37 Assessment and Plan Assessment and plan (1) Respiratory failure with hypoxia and hypercapnia: Status: Acute Assessment and plan: Multifactorial, due to acute on chronic CHFrEF, OHS, COPD. Pneumonia is less likely. Off abx. Leucocytosis is actually better. Blood cxs negative. Continue to monitor fever curve off of abx. Lactic acidosis; resolved. Continue BiPAP at night/with sleep with plans for trilogy on discharge. O2 goal of greater than 90%. Qualifiers: Chronicity: acute on chronic Qualified Code(s): J96.21 - Acute and chronic respiratory failure with hypoxia; J96.22 - Acute and chronic respiratory failure with hypercapnia; J96.22 - Acute and chronic respiratory failure with hypercapnia (2) Acute on chronic heart failure with reduced ejection fraction and diastolic dysfunction: Status: Acute Assessment and plan: LVEF is now much better - 55%, but used to be 40-45% H/o sudden cardiac /VT s/p AICD. Continue torsemide. Has left ventricular apical and anteroapical segment akinesis. Continue ASA and Plavix. Will need cardiology follow up. (3) Non-ST elevation GA (NSTEMI): Status: Inactive Assessment and plan: as above. (4) COPD (chronic obstructive pulmonary disease): Status: Chronic Assessment and plan: Continue Symbicort and Spiriva, prn duonebs. Will need Stiolto Respimat resumed on d/c. Not in acute exacerbation at this time. (5) Ischemic cardiomyopathy: Status: Chronic Assessment and plan: as above (6) CAD (coronary artery disease): Status: Chronic Assessment and plan: as above (7) Obesity hypoventilation syndrome: Status: Chronic Assessment and plan: As above (8) DVT prophylaxis: Status: Acute Assessment and plan: SC heparin (9) Discharge planning issues: Status: Acute Assessment and plan: Full code Anticipate discharge home tomorrow w/ new O2 and trilogy. Subjective Subjective Interval history since last seen: I Just feel anxious. It's almost like PTSD. Mr Gunderson feels better. Denies dizziness, CP, SOB, n/v. Has been working with PT. His Trilogy machine is supposed to be ready tomorrow. Exam Narrative Exam Narrative: General: Pleasant obese male who is on 2L of O2 by NC, A&Ox3, NAD HEENT: EOMI, MMM Heart: RRR, no m/r/g Lungs: CTAB/diminished breath sounds B Abdomen: soft, nontender, nondistended Extremities: no edema BLEs Objective Last Vital Signs Temp 37.6 C H 09/24/22 14:49 Pulse 66 09/24/22 14:49 Resp 16 09/24/22 14:49 BP 122/75 09/24/22 14:49 Pulse Ox 92 09/24/22 14:49 Laboratory Results - last 24 hr 09/24/22 09/24/22 07:40 07:40 WBC 11.76 H RBC 4.46 Hgb 12.5 L Hct 40.2 MCV 90 MCH 28.0 MCHC 31.1 L RDW 15.3 H Plt Count 519 H MPV 8.9 Immature Gran % 0.6 Neutrophils % 71.1 Lymphocytes % 16.8 Monocytes % 5.3 Eosinophils % 5.5 Basophils % 0.7 Nucleated RBC % 0.0 Absolute Neutrophils 8.36 H Absolute Lymphocytes 1.98 Absolute Monocytes 0.62 Absolute Eosinophils 0.65 Absolute Basophils 0.08 Sodium 139 Potassium 3.7 Chloride 95 L Carbon Dioxide 43.7 H Anion Gap 0.3 L BUN 15 Creatinine 0.9 Est GFR (CKD-EPI 2020) 102.12 Glucose 119 H Calcium 9.8 Magnesium 2.3 Time Spent with Patient Time Spent with Patient: 25-34 minutes Time was spent: preparing to see the patient(eg.review tests), obtaining and/or reviewing separately otained hiistory, ordering medications,tests, procedures, referring, communicating with other health customer care assistant, indepentently interpreting results, counseling the patient and care coordination
[2022-09-24] MEDS: Heparin 5,000 UNITS/ML VIAL 5000 UNITS SC (18:17)
[2022-09-24] MEDS: Atorvastatin 40 MG TAB 80 MG PO (20:06)
[2022-09-24] MEDS: Magnesium Oxide 400 MG TAB PO (20:06)
[2022-09-25 01:00] VITALS: PULSE 65; RESP 10; RESP 12; RESP 15; O2SAT 97
[2022-09-25 01:07] VITALS: PULSE 62; RESP 10; RESP 12; O2SAT 93
[2022-09-25] MEDS: Heparin 5,000 UNITS/ML VIAL 5000 UNITS SC ×2 (01:24→10:57)
[2022-09-25 03:05] VITALS: BP 126/77; PULSE 54; RESP 16; TEMP 36.5; O2SAT 93
[2022-09-25 07:31] LABS: Abs Immature Grans 0.05 10^3/uL (0.0-0.06); Absolute Basophil Count 0.09 10^3/uL (0.0-0.2); Absolute Eosinophil Count 0.53 10^3/uL (0.0-0.7); Absolute Lymphocyte Count 2.01 10^3/uL (1.2-3.4); Absolute Monocyte Count 0.69 10^3/uL (0.1-0.8); Absolute Neutrophil Count 6.98 10^3/uL (1.2-6.7); Basophils % 0.9; Eosinophils % 5.1; HCT 40.8 % (40.0-50.0); Immature Grans % 0.5; Lymphocytes % 19.4; MCH 28.4 pg (27.0-33.0); MCHC 31.9 % (32.0-36.0); MCV 89 fL (80-95); Monocytes % 6.7; Neutrophils % 67.4; Platelet Count 531 10^3/uL (130-400); RBC 4.58 10^6/uL (4.36-5.78); RDW 15.5 % (11.8-14.1); RDW-SD 50.9 fL; WBC 10.35 10^3/uL (4.4-10.8)
[2022-09-25 07:47] LABS: Anion Gap 2.4 mmol/L (3-11); BUN 16 mg/dL (7-18); CO2 39.6 mmol/L (21.0-32.0); CREATININE 0.9 mg/dL (0.70-1.30); Calcium 9.7 mg/dL (8.5-10.1); Chloride 97 mmol/L (98-107); Estimated GFR 101.49 (mL/min/1.73m2); Glucose 120 mg/dL (74-106); Magnesium 2.4 mg/dL (1.8-2.4); Potassium 3.9 mmol/L (3.5-5.1); Sodium 139 mmol/L (136-145)
[2022-09-25 08:10] VITALS: BP 134/82; PULSE 73; RESP 17; TEMP 36.3; O2SAT 93
[2022-09-25] MEDS: Folic Acid 1 MG TAB 2 MG PO (08:28)
[2022-09-25] MEDS: Nicotine 21 MG/24 HR PATCH TD (08:28)
[2022-09-25] MEDS: Torsemide 20 MG TAB 60 MG PO (08:28)
[2022-09-25] MEDS: Pantoprazole 40 MG TABCR PO (08:29)
[2022-09-25] MEDS: busPIRone 15 MG TAB PO (08:29)
[2022-09-25] MEDS: Citalopram 20 MG TAB PO (08:29)
[2022-09-25] MEDS: Gabapentin 300 MG CAP PO ×2 (08:29→14:04)
[2022-09-25] MEDS: Clopidogrel 75 MG TAB PO (08:29)
[2022-09-25] MEDS: Aspirin E.C. 81 MG TABEC PO (08:29)
[2022-09-25] MEDS: LORazepam 1 MG TAB PO ×2 (08:29→10:57)
[2022-09-25] MEDS: Ranolazine 500 MG TABCR PO (08:29)
[2022-09-25] MEDS: Buprenorphine/Naloxone 12 mg/3 mg FILM 1 EACH SL (08:29)
[2022-09-25] MEDS: Potassium Chloride 20 MEQ TABCR PO (08:29)
[2022-09-25] MEDS: Allopurinol 100 MG TAB PO (08:29)
[2022-09-25] MEDS: Tiotropium/Olodaterol 10 PUFF INHALER 2 PUFF IH (08:46)
[2022-09-25 11:01] VITALS: BP 110/71; PULSE 72; RESP 18; TEMP 36.6; O2SAT 95
--- NOTE | 2022-09-25 13:08 | W.PM.DS.N ---
Date of service: 09/25/22 Time of Service: 13:08 DS: Diagnosis Discharge Diagnosis (1) Respiratory failure with hypoxia and hypercapnia: Status: Acute (2) Acute on chronic heart failure with reduced ejection fraction and diastolic dysfunction: Status: Acute (3) Non-ST elevation AK (NSTEMI): Status: Inactive (4) COPD (chronic obstructive pulmonary disease): Status: Chronic (5) Ischemic cardiomyopathy: Status: Chronic (6) CAD (coronary artery disease): Status: Chronic (7) Obesity hypoventilation syndrome: Status: Chronic (8) Obesity, morbid, BMI 40.0-49.9: Status: Acute (9) Anxiety: Status: Acute Discharge Plan Disposition Patient Disposition: Home W/Home Health Services Condition: Improving Discharge Details Reason For Visit: acute hypoxic and hypercarbic respiratory failure, Admit Date/Time: 09/17/22 10:56 Admit Provider: Bola Coombs Attending Provider: Bola Coombs Primary Care Provider: Gerri Silverman Hospital Course Hospital Course: Mr Gunderson is a 52 year old male with PMHx of CHFrEF/ICMO w/ h/o Vtach arrest s/p AICD, as well as h/o CAD s/p AK and 7 JULIETH, Afib on amiodarone but not anticoagulation, COPD not previously on oxygen, obesity with BMI of 44.8 kg/m2, who was admitted to [facility] ICU on 09/17/22 with acute on chronic systolic CHF and suspicion for a multifocal pneumonia. He had evidence of acute on chronic respiratory acidosis of pH of 7.27 and pCO2 of 83 on VBG and was hypoxic, so he was diuresed, started on empiric vancomycin and zosyn, nebulizer treatments, and placed on BiPAP. He did at that point require 40-50% FiO2. He also had evidence of elevated troponins c/w NSTEMI. He was initiated on heparin and nitroglycerin drips as well as continued on his aspirin and plavix. He was also started on furosemide gtt. His abx were changed to cefepime. The patient also had a fluid collection in his left thigh muscle, where the patient was reporting pain (and he was just recently treated for groin/perineal abscess requiring a surgical debridgement at [facility]), he was evaluated by general surgery, who felt there did not need to be an immediate intervention, with focus of treatment shifting to CHF and his possible pneumonia. A formal echocardiogram was obtained and showed an LVEF of 55% with akinetic LV apex and anteroapical segments. His RVSP was 42 mmHg with RV appearing grossly normal in size and systolic function. Dr Hoffman of pulmonology also felt the patient had a component of OHS. She felt the patient may benefit from a Trilogy machine on discharge, given his overall clinical picture. He was not strongly felt to be in a COPD exacerbation. He was treated with scheduled duonebs and was to be resumed on stiolto on discharge. The patient underwent PFTs showing primarily a restrictive defect with no obstruction. This supported his diagnosis of OHS. Process of coordination for an outpatient trilogy machine was initiated. He would need full PFTs as outpatient. At this point, the patient was felt to have had a type 2 NSTEMI rather than a true ACS/type 1 NSTEMI. The patient's heparin gtt and nitroglycerin drips were discontinued. He continued to be diuresed while he was being weaned off of the BiPAP, at least during awake hours. His antibiotics were continued for 72 hours and were discontinued once blood cultures were negative. It was felt that his multifocal infiltrates on his imaging were due to CHF rather than an infectious process. The patient now required 2L of O2 at rest and 4L with activity. He was switched to oral diuretic therapy. He was maintained on BiPAP at night/with naps. His anxiety was treated with increased dose of lorazepam (1 mg PO TID prn). The patient is being discharged today with a prescription for torsemide 60 mg PO daily, new home oxygen at 2L at rest and 4L with activity, and after confirmation that [facility] would provide his triology machine to him today. Patient was medically stable for discharge and agreeable to discharge. He was also being discharged home with resumption of home health nursing and PT. Care for patient as well as completion of his discharge summary on day of discharge took 60 minutes. Home Meds and New Rx's Prescriptions: New nicotine 21 mg/24 hr Patch 24 Hour 21 mg transdermal DAILY Qty: 30 0RF ipratropium-albuterol 0.5 mg-3 mg(2.5 mg base)/3 mL Solution For Nebulization 3 ml UPD Q6H PRN PRN (Reason: wheezing) Qty: 180 0RF lorazepam 1 mg Tablet 1 mg PO TID PRN PRN (Reason: anxiety) Qty: 10 0RF potassium chloride [Klor-Con M20] 20 mEq Tablet,Er Particles/Crystals 20 meq PO DAILY Qty: 10 0RF Deep Sea Nasal 0.65 % Aerosol,Spencer 2 spray NS QID PRN PRN (Reason: nasal congestion) Qty: 44 0RF Continued buspirone 15 mg tablet 15 mg PO BID nitroglycerin 0.4 mg tablet, sublingual 0.4 mg sublingual Q5-15M PRN (Reason: chest pain) Qty: 90 3RF Rx Instructions: do not exceed 3 doses per episode amiodarone 100 mg tablet 100 mg PO DAILY Patient Comments: 08/05/[address] More on 07/01/22, PCP office noticed change RH citalopram 20 mg Tablet 20 mg PO DAILY gabapentin 300 mg Capsule 300 mg PO TID Stiolto Respimat 2.5-2.5 mcg/actuation mist 2 puff inhalation DAILY Qty: 4 0RF albuterol sulfate 90 mcg/actuation aerosol powdr breath activated 2 inh inhalation Q4H PRNQty: 1 0RF buprenorphine-naloxone [Suboxone] 12-3 mg Film 1 film BUCCAL Q24H isosorbide mononitrate 30 mg Tablet Extended Release 24 Hr 30 mg PO DAILY aspirin 81 mg Tablet,Delayed Release (Dr/Ec) 81 mg PO DAILY ranolazine 500 mg Tablet Extended Release 12 Hr 500 mg PO BID atorvastatin 80 mg tablet 80 mg PO DAILY Qty: 30 0RF clopidogrel [Plavix] 75 mg tablet 75 mg PO DAILY Qty: 30 0RF folic acid 1 mg tablet 2 mg PO DAILY Qty: 30 0RF pantoprazole [Protonix] 40 mg tablet,delayed release (DR/EC) 40 mg PO DAILY Qty: 30 0RF Changed torsemide 20 mg tablet 60 mg PO DAILY Qty: 90 3RF Discontinued lorazepam 0.5 mg tablet 0.5 mg PO BID PRN hydralazine 50 mg tablet 50 mg PO TID Qty: 90 0RF losartan 25 mg tablet 25 mg PO DAILY Qty: 30 0RF Discharge Instructions Instructions: Using Oxygen at Home (DC), Low-Sodium Diet (DC), BiPAP (GEN), Chronic Respiratory Failure (DC), Acute Respiratory Failure (ED) Additional Instructions: Return to the hospital with any worsening in your breathing, with fever, chest pain or shortness of breath. Follow up with your PCP in 1-2 weeks. Follow up with Dr Hoffman in the office. Bloodwork 1 week. Follow a low sodium diet. Weigh yourself daily. Record your weights. Inform your PCP if you have gained more than 3 lbs in 3 days. Care Plan Goals: Home with resumption of home health nursing and PT. Nursing to draw CBC w/ diff, BMP, magnesium on 10/02/22 -results to PCP. Stand Alone Forms: Nursing Discharge Form Referrals: Gerri Silverman [Primary Care Provider] - 10/02/22 1:00 pm May Hoffman MD [ [facility] STAFF PHYSICIAN] - (Please call Wednesday to make a follow up appointment. ) Zenon Yusuf MD [ [facility] STAFF PHYSICIAN] - (L thigh collection) Activity:: Activity as Tolerated Equipment/Supplies:: Oxygen (L/min Below) Diet:: Low Sodium Discharge Orders Discharge Orders: Discharge Order (Routine); Ordered 09/25/22 Ordered By: Tanja Gaines Discharge Data Discharge Date/Time-TO BE ENTERED AT DEPARTURE: 09/25/22 16:09 DS: Summary Time Spent with Patient providing and/or coordinating discharge services: Greater than 30 minutes Status at Discharge Functional status at discharge: independent ambulation Overall status at discharge: patient is progressing back to baseline Mental Status: mental status grossly normal Speech and Movement: speech and movement normal Mood: congruent mood and anxious mood Affect: normal affect Exam Narrative Exam Narrative: General: Pleasant obese male who is on 2L of O2 by NC, A&Ox3, NAD HEENT: EOMI, MMM Heart: RRR, no m/r/g Lungs: CTAB/diminished breath sounds B Abdomen: soft, nontender, nondistended Extremities: no edema BLEs Psych Mental Status: mental status grossly normal Speech and Movement: speech and movement normal Mood: congruent mood and anxious mood Affect: normal affect DS: Data Vitals/I&O Vitals and I&O: Vital Signs Temperature 36.6 C 09/25/22 11:01 Temperature Source Tympanic 09/25/22 11:01 Pulse 72 09/25/22 11:01 Pulse Rhythm Regular 09/25/22 08:30 Pulse 105 H 05/20/23 13:00 Respiratory Rate 18 09/25/22 11:01 Respiratory Effort Normal, Non-Labored 09/25/22 08:30 Respiratory Depth Normal 09/25/22 08:30 Respiratory Pattern Normal 09/25/22 08:30 Blood Pressure 110/71 09/25/22 11:01 Blood Pressure Mean 108 09/19/22 14:04 Blood Pressure Position Sitting 09/19/22 14:04 Pulse Oximetry 95 09/25/22 11:01 Oxygen Delivery Method Nasal Cannula 09/25/22 11:01 Oxygen Flow Rate 2 09/25/22 11:01 Fraction of Inspired Oxygen (FIO2) 30 09/25/22 01:07 Pain Level 0 09/24/22 14:49 Comment Pt. denies pain at this time. 09/22/22 07:00 Intake & Output 09/24/22 09/25/22 09/25/22 23:59 11:59 23:59 Output Total 450 / 1850 850 / 850 Balance -450 / -1850 -850 / -850 Weight 137.7 kg Output: Urine 450 / 1850 850 / 850 Other: Urine Color Light Lashay Yellow Urine Appearance Clear Clear Urine Odor Normal Normal Voiding Methods Urinal Urinal Data Completed and Pending Completed studies during hospitalization [Text1]: CXR 09/17/22: Development of bilateral pulmonary infiltrates.? The findings may represent multifocal pneumonia.? Please correlate clinically.? Pulmonary edema cannot be entirely excluded CT chest/abdomen/pelvis 09/17/22: 1. No evidence pulmonary embolism, thoracic aortic dissection or aneurysm. 2. Bilateral multifocal pneumonia.? 3. Interval decrease in size of the fluid collection in the medial left thigh musculature. 4. No acute abdominal or pelvic process. CXR 09/18/22: Persistent bilateral airspace opacities with a question of slight improved appearance in the right lung base.? Echo 09/18/22: LV appears mildly dilated.? Ejection fraction is 55%.? Left ventricular apex and anteroapical segment are akinetic Right ventricle appears grossly normal in size and systolic function The left atrium is mildly dilated.? Right atrial size is normal Device lead noted in the right heart Aortic valve is sclerotic without stenosis or regurgitation No additional structural valvular disease is identified Immediate right ventricular systolic pressure is 42 mmHg Labs on day of discharge: Labs from last 24 hours 09/25/22 09/25/22 07:00 07:00 WBC 10.35 RBC 4.58 Hgb 13.0 L Hct 40.8 MCV 89 MCH 28.4 MCHC 31.9 L RDW 15.5 H Plt Count 531 H MPV 9.0 Immature Gran % 0.5 Neutrophils % 67.4 Lymphocytes % 19.4 Monocytes % 6.7 Eosinophils % 5.1 Basophils % 0.9 Nucleated RBC % 0.0 Absolute Neutrophils 6.98 H Absolute Lymphocytes 2.01 Absolute Monocytes 0.69 Absolute Eosinophils 0.53 Absolute Basophils 0.09 Sodium 139 Potassium 3.9 Chloride 97 L Carbon Dioxide 39.6 H Anion Gap 2.4 L BUN 16 Creatinine 0.9 Est GFR (CKD-EPI 2020) 101.49 Glucose 120 H Calcium 9.7 Magnesium 2.4 PFSH All Active Problems (Updated 09/25/22 @ 13:09 by Tanja Gaines MD) Obesity, morbid, BMI 40.0-49.9 (Acute) Discharge planning issues (Acute) DVT prophylaxis (Acute) Obesity hypoventilation syndrome (Chronic) Left thigh pain (Acute) Acute respiratory failure with hypoxia (Acute) Multifocal pneumonia (Acute) Somnolence (Acute) Hypokalemia (Acute) Lactic acidosis (Acute) Thrombocytosis (Acute) Leukocytosis (Acute) CHF exacerbation (Acute) Respiratory failure with hypoxia and hypercapnia (Acute) Diastolic heart failure (Acute) Consolidation of left lower lobe of lung (Acute) Anxiety (Acute) Cellulitis of leg, left (Acute) Angina pectoris (Chronic) GERD (gastroesophageal reflux disease) (Chronic) Depression (Chronic) Morbid obesity (Chronic) AICD (automatic cardioverter/defibrillator) present (Acute) placed at [facility] for ischemic dilated cardiomyopathy [employer] Margaret MACDONALD 01/27/21 HLD (hyperlipidemia) (Acute) ETOH abuse (Chronic) Drug dependence (Chronic) COPD (chronic obstructive pulmonary disease) (Chronic) Acute on chronic heart failure with reduced ejection fraction and diastolic dysfunction (Acute) Ischemic cardiomyopathy (Chronic) Afib (Chronic) Tobacco use disorder (Acute) Hx of hyperlipidemia (Acute) HTN (hypertension) (Chronic) CAD (coronary artery disease) (Chronic) Medical History Alcohol use disorder, severe, dependence [facility] 01/21 Cardiac arrest CHF (congestive heart failure) Dental infection Exertional chest pain Homelessness Medication monitoring encounter Pacemaker Pulmonary nodules Surgical History History of coronary artery stent placement History of hernia repair History of right knee joint replacement History of tonsillectomy Social History Smoking/Tobacco Use Status: Current-Occasional Tobacco Type: cigarettes Smoking risk assessment performed?: Yes Alcohol Intake: former Year quit: 2020 Details: Former heavy alcohol use. Drug use: Current Sobriety Substance use type: former substance user, marijuana and prescription drug Do you feel safe at home: Yes Do you feel safe in your relationship?: Yes Time Spent with Patient Time Spent with Patient: 45-69 minutes Time was spent: preparing to see the patient(eg.review tests), obtaining and/or reviewing separately otained hiistory, ordering medications,tests, procedures, referring, communicating with other health healthcare administration intern, indepentently interpreting results, counseling the patient and care coordination
--- NOTE | 2022-09-25 14:23 | PDOC.CMDIS ---
Date of service: 09/25/22 Time of Service: 14:23 LACE Index Scoring Tool Questions: Length of Stay (in days): 7 - 13 Was the patient admitted via the E.D.?: Yes Comorbidities: Previous M.I., Congestive Heart Failure and Chronic Pulmonary Disease E.D. Visits: 8 Answers: Total Score: 17 Risk of Readmission: High Risk Care Management Discharge Plan Reason for Hospitalization: heart failure Discharge Plan: Luis will return to the [facility] with a resumption of home health services for nursing, PT and OT. Luis was also provided with a new Trilogy machine and will have new home oxygen. A referral has been sent to [facility] for [facility]ing and community case management. He will follow up with his PCP, Cardiology and plan of care and transport via [facility]. Patient/Family Education Needs: Review of discharge instructions, activity, limitations, follow up plan, Ask Me Three Services Needed at Discharge: Home Health Care Services
--- NOTE | 2022-09-25 15:29 | CHAPLAIN ---
Pramod was up in the chair when I visited. He said he is being discharged today and that's making him anxious. He lives in the [place] right now. He and his are . He knows some of the people in the hotel, he said, but they are not friends of his. Although he's anxious about being discharged, he said he'd also like to just get going if I'm gong to out of here. He was still here about 3:30 p.m. but his discharge orders are in.
--- NOTE | 2022-09-25 17:38 | PT.INTREAT ---
Date of service: 09/25/22 Time of Service: 09:52 PT Notes Visit Reasons: acute hypoxic and hypercarbic respiratory failure, Inpatient Physical Therapy Treatment Note [facility] Date: 09/25/22 PRECAUTIONS: Fall, standard, activity as tolerated SUBJECTIVE: Patient reports heightened anxiety, not sure he will have a ride home. Sitting up in recliner, agreeable to some therapy but doesn't feel up for much due to concerns over finding a ride. OBJECTIVE: PAIN: none reported THEREX: Created HEP program as follows: Access Code: [email or web address] URL: [email or web address] Date: 09/25/2022 Prepared by: Lily Briscoe Exercises - Tandem Stance with Support? - 1 x daily - 7 x weekly - 3 sets - 10 reps - Clamshell? - 1 x daily - 7 x weekly - 3 sets - 10 reps - Bird Dog? - 1 x daily - 7 x weekly - 3 sets - 10 reps - Sit to Stand? - 1 x daily - 7 x weekly - 3 sets - 10 reps - Standing Shoulder Row with Anchored Resistance? - 1 x daily - 7 x weekly - 3 sets - 10 reps - Shoulder extension with resistance - Neutral? - 1 x daily - 7 x weekly - 3 sets - 10 reps - Standing Shoulder Horizontal Abduction with Resistance? - 1 x daily - 7 x weekly - 3 sets - 10 reps Reviewed with patient, observed patient demonstrate each exercise x3, verbal and tactile corrections. ASSESSMENT: Patient agreeable to HEP, return demonstration 100% on all exercises. PLAN: Patient to return home today. TREATMENT CODE/TIME: 25513 Ther Ex 11 minutes beginning at 9:41
== END 2022-09-25 16:09 | disposition home health service (06) | DRG 280 ==
LOC: ER 12:06 → ICU 13:24 → MS 09-19 14:46
PROVIDERS: Family Medicine; Internal Medicine; Physician Assistant; Student in an Organized Health Care Education/Training Program; Admitting Provider Internal Medicine; Emergency Provider Emergency Medicine; PCP Nurse Practitioner Family; Visit Provider Internal Medicine
DX: I11.0 Hypertensive heart disease with heart failure (principal); I50.43 Acute on chronic combined systolic (congestive) and diastolic (congestive) heart failure; I21.A1 Myocardial infarction type 2; J96.21 Acute and chronic respiratory failure with hypoxia; J96.22 Acute and chronic respiratory failure with hypercapnia; L03.116 Cellulitis of left lower limb; E87.20 Acidosis, unspecified; Z68.41 Body mass index [BMI] 40.0-44.9, adult; E87.21 Acute metabolic acidosis; E66.2 Morbid (severe) obesity with alveolar hypoventilation; I25.5 Ischemic cardiomyopathy; Z95.5 Presence of coronary angioplasty implant and graft; Z95.810 Presence of automatic (implantable) cardiac defibrillator; Z86.74 Personal history of sudden cardiac arrest; I48.91 Unspecified atrial fibrillation; E78.5 Hyperlipidemia, unspecified; E87.6 Hypokalemia; D75.839 Thrombocytosis, unspecified; F41.9 Anxiety disorder, unspecified; K21.9 Gastro-esophageal reflux disease without esophagitis; I25.119 Atherosclerotic heart disease of native coronary artery with unspecified angina pectoris; F17.210 Nicotine dependence, cigarettes, uncomplicated; Z96.651 Presence of right artificial knee joint; R91.8 Other nonspecific abnormal finding of lung field; F10.11 Alcohol abuse, in remission; F19.91 Other psychoactive substance use, unspecified, in remission; F32.A Depression, unspecified; R40.0 Somnolence; D72.829 Elevated white blood cell count, unspecified; J44.9 Chronic obstructive pulmonary disease, unspecified; Z59.01 Sheltered homelessness; I25.2 Old myocardial infarction
CPT/HCPCS: 36415; 51702; 71275; 74177; 80048; 80053; 80061; 82805; 84145; 87040; 87077; 87081; 87449; 87635; 93005; 93308; 94618; 94640; 96365; 96368; 96375; 96376; 97110; 97162; 97530; 99285; 99291; C8929; J1650; 36600; 71045; 83036; 83605; 83735; 83880; 84484; 85025; 85610; 85730; 87070; 87205; 87899; 93010; 94010; 94660; 94664; 94667; 94668; 94760; 99232; 99233; 99239; J1644; J1940; J2060; J2543; J2930; J3480; J3490; J7620

== ENCOUNTER 2022-10-02 15:45 | Outpatient (REF) | payer MEDICAID, SELFPAY ==
[2022-10-02 18:59] LABS: Abs Immature Grans 0.02 10^3/uL (0.0-0.06); Absolute Basophil Count 0.16 10^3/uL (0.0-0.2); Absolute Eosinophil Count 0.67 10^3/uL (0.0-0.7); Absolute Lymphocyte Count 3.04 10^3/uL (1.2-3.4); Absolute Monocyte Count 0.88 10^3/uL (0.1-0.8); Absolute Neutrophil Count 4.25 10^3/uL (1.2-6.7); Basophils % 1.8; Eosinophils % 7.4; HCT 38.5 % (40.0-50.0); HGB 12.1 g/dL (13.5-17.5); Immature Grans % 0.2; Lymphocytes % 33.7; MCHC 31.4 % (32.0-36.0); MCV 89 fL (80-95); MPV 9.2 fL (8.0-11.0); Monocytes % 9.8; Neutrophils % 47.1; RBC 4.32 10^6/uL (4.36-5.78); RDW 15.9 % (11.8-14.1); WBC 9.02 10^3/uL (4.4-10.8)
[2022-10-02 19:12] LABS: Anion Gap 3.2 mmol/L (3-11); BUN 10 mg/dL (7-18); CO2 38.8 mmol/L (21.0-32.0); CREATININE 1.1 mg/dL (0.70-1.30); Calcium 9.6 mg/dL (8.5-10.1); Chloride 92 mmol/L (98-107); Estimated GFR 79.77 (mL/min/1.73m2); Glucose 101 mg/dL (74-106); Potassium 4.4 mmol/L (3.5-5.1); Sodium 134 mmol/L (136-145)
[2022-10-02 19:28] LABS: Platelet Count 845 10^3/uL (130-400)
== END 2022-10-02 15:46 | disposition home or self-care (01) ==
LOC: NCHCN 15:45
PROVIDERS: PCP Nurse Practitioner Family; Visit Provider Nurse Practitioner Family
DX: J96.21 Acute and chronic respiratory failure with hypoxia (principal); I11.0 Hypertensive heart disease with heart failure; D75.839 Thrombocytosis, unspecified
CPT/HCPCS: 80048; 83735; 85025

== ENCOUNTER 2022-10-05 16:47 | Outpatient (REF) | payer MEDICAID, SELFPAY ==
[2022-10-05 16:05] LABS: Abs Immature Grans 0.03 10^3/uL (0.0-0.06); Absolute Basophil Count 0.12 10^3/uL (0.0-0.2); Absolute Eosinophil Count 0.62 10^3/uL (0.0-0.7); Absolute Lymphocyte Count 1.48 10^3/uL (1.2-3.4); Absolute Monocyte Count 0.64 10^3/uL (0.1-0.8); Absolute Neutrophil Count 5.17 10^3/uL (1.2-6.7); Basophils % 1.5; Eosinophils % 7.7; HCT 39.5 % (40.0-50.0); HGB 12.1 g/dL (13.5-17.5); Immature Grans % 0.4; Lymphocytes % 18.4; MCH 27.8 pg (27.0-33.0); MCHC 30.6 % (32.0-36.0); MCV 91 fL (80-95); MPV 8.8 fL (8.0-11.0); Monocytes % 7.9; Neutrophils % 64.1; RBC 4.35 10^6/uL (4.36-5.78); RDW-SD 53.6 fL; WBC 8.06 10^3/uL (4.4-10.8)
[2022-10-05 16:43] LABS: Platelet Count 756 10^3/uL (130-400)
== END 2022-10-05 16:48 | disposition home or self-care (01) ==
LOC: NCHCN 16:47
PROVIDERS: PCP Nurse Practitioner Family; Visit Provider Family Medicine
DX: D47.3 Essential (hemorrhagic) thrombocythemia (principal)
CPT/HCPCS: 85025

== ENCOUNTER 2022-10-19 14:42 | Outpatient (REF) | payer MEDICAID, SELFPAY ==
[2022-10-19 18:14] LABS: Abs Immature Grans 0.03 10^3/uL (0.0-0.06); Absolute Basophil Count 0.08 10^3/uL (0.0-0.2); Absolute Eosinophil Count 0.09 10^3/uL (0.0-0.7); Absolute Monocyte Count 0.77 10^3/uL (0.1-0.8); Absolute Neutrophil Count 7.68 10^3/uL (1.2-6.7); Basophils % 0.7; Eosinophils % 0.8; HCT 42.7 % (40.0-50.0); HGB 13.9 g/dL (13.5-17.5); Immature Grans % 0.3; Lymphocytes % 21.6; MCHC 32.6 % (32.0-36.0); MCV 86 fL (80-95); MPV 9.1 fL (8.0-11.0); Neutrophils % 69.6; Platelet Count 456 10^3/uL (130-400); RBC 4.97 10^6/uL (4.36-5.78); RDW 16.6 % (11.8-14.1); RDW-SD 51.9 fL; WBC 11.04 10^3/uL (4.4-10.8)
[2022-10-19 18:28] LABS: Absolute Lymphocyte Count 2.38 10^3/uL (1.2-3.4)
[2022-10-19 18:49] LABS: ALT 18 U/L (16-63); AST 21 U/L (15-37); Albumin 3.9 g/dL (3.4-5.0); Alkaline Phosphatase 105 U/L (46-116); Anion Gap 8.5 mmol/L (3-11); BUN 12 mg/dL (7-18); Bilirubin, Total 0.9 mg/dL (0.2-1.0); CO2 29.5 mmol/L (21.0-32.0); CREATININE 0.9 mg/dL (0.70-1.30); Calcium 9.8 mg/dL (8.5-10.1); Chloride 98 mmol/L (98-107); Estimated GFR 101.49 (mL/min/1.73m2); Glucose 117 mg/dL (74-106); Potassium 4.1 mmol/L (3.5-5.1); Sodium 136 mmol/L (136-145); Total Protein 8.7 g/dL (6.4-8.2)
== END 2022-10-19 14:43 | disposition home or self-care (01) ==
LOC: NCHCN 14:42
PROVIDERS: PCP Nurse Practitioner Family; Visit Provider Nurse Practitioner Family
DX: I50.43 Acute on chronic combined systolic (congestive) and diastolic (congestive) heart failure (principal); J96.01 Acute respiratory failure with hypoxia; R11.0 Nausea; R42 Dizziness and giddiness; D47.3 Essential (hemorrhagic) thrombocythemia
CPT/HCPCS: 80053; 85025

== ENCOUNTER 2022-10-28 12:32 | Emergency (ER) | payer MEDICAID, SELFPAY ==
[2022-10-28 12:46] VITALS: BP 97/57; PULSE 80; RESP 20; TEMP 36.4; O2SAT 94
--- NOTE | 2022-10-28 13:19 | ED.GENADUL_ITS ---
Discharge Plan Disposition Patient Disposition: Home Condition: Good Discharge Details Clinical Impression: Acute hypokalemia, Fluid overload, Folliculitis Primary Care Provider: Gerri Silverman ED Provider: Israel Rosa Home Meds and New Rx's Prescriptions: New clindamycin HCl [Cleocin HCl] 150 mg capsule 150 mg PO TID 7 Days Qty: 21 0RF potassium chloride [Klor-Con] 20 mEq packet 20 meq PO BID 5 Days Qty: 10 0RF No Action nitroglycerin 0.4 mg tablet, sublingual 0.4 mg sublingual Q5-15M PRN (Reason: chest pain) Qty: 90 3RF Rx Instructions: do not exceed 3 doses per episode folic acid 1 mg tablet 1,000 mcg PO DAILY Patient Comments: 10/07/22 per PCP prescribed as 1 mg daily RH amiodarone 100 mg tablet 100 mg PO DAILY Patient Comments: 08/05/[address] More on 07/01/22, PCP office noticed change RH buspirone 15 mg tablet 15 mg PO TID gabapentin 100 mg capsule 500 mg PO QID budesonide-formoterol 80-4.5 mcg/actuation HFA aerosol inhaler 2 puff inhalation BID acetaminophen 500 mg capsule 1,000 mg PO Q6H PRN spironolactone 25 mg tablet 25 mg PO DAILY Super Multiple Tablet 1 tab PO DAILY melatonin 10 mg capsule 10 mg PO HS PRN trazodone 50 mg tablet 50 mg PO QHS PRN (DME) Oxygen Tank See Rx Instructions .Route Rx Instructions: As directed hydralazine 50 mg tablet 50 mg PO TID Patient Comments: 10/12/22 verified from pcp med list jwo buprenorphine-naloxone 2-0.5 mg film 2 film buccal QID Patient Comments: 10/12/22 updated from pcp list jwo Rx Instructions: place 2 strip/tab under (each) side of tongue citalopram 20 mg Tablet 20 mg PO DAILY Stiolto Respimat 2.5-2.5 mcg/actuation mist 2 puff inhalation DAILY Qty: 4 0RF albuterol sulfate 90 mcg/actuation aerosol powdr breath activated 2 inh inhalation Q4H PRNQty: 1 0RF nicotine 21 mg/24 hr Patch 24 Hour 21 mg transdermal DAILY Qty: 30 0RF ipratropium-albuterol 0.5 mg-3 mg(2.5 mg base)/3 mL Solution For Nebulization 3 ml UPD Q6H PRN PRN (Reason: wheezing) Qty: 180 0RF lorazepam 1 mg Tablet 1 mg PO TID PRN PRN (Reason: anxiety) Qty: 10 0RF potassium chloride [Klor-Con M20] 20 mEq Tablet,Er Particles/Crystals 20 meq PO DAILY Qty: 10 0RF Deep Sea Nasal 0.65 % Aerosol,Foster 2 spray NS QID PRN PRN (Reason: nasal congestion) Qty: 44 0RF torsemide 20 mg tablet 60 mg PO DAILY Qty: 90 3RF isosorbide mononitrate 30 mg Tablet Extended Release 24 Hr 30 mg PO DAILY aspirin 81 mg Tablet,Delayed Release (Dr/Ec) 81 mg PO DAILY ranolazine 500 mg Tablet Extended Release 12 Hr 500 mg PO BID atorvastatin 80 mg tablet 80 mg PO DAILY Qty: 30 0RF clopidogrel [Plavix] 75 mg tablet 75 mg PO DAILY Qty: 30 0RF pantoprazole [Protonix] 40 mg tablet,delayed release (DR/EC) 40 mg PO DAILY Qty: 30 0RF Discharge Instructions Instructions: Hypokalemia (ED), Folliculitis (ED), Edema (ED) Additional Instructions: Please double your Lasix dose tomorrow. And then continue taking your regular Lasix. Please take the antibiotic clindamycin as directed. Please continue to take the potassium over the next 5 days to correct your potassium levels. If you notice any worsening of your symptoms, or any new symptoms such as vomiting, diarrhea, fever, chills, shortness of breath, chest pain, numbness, weakness, or fainting , please return immediately to the emergency department for reevaluation. Please follow up with your primary care provider as soon as possible for reassessment and reevaluation. As always, it was a pleasure participating in your medical care today. Referrals: Gerri Silverman [Primary Care Provider] - Medical Decision Making This is a 52-year-old male with a past medical history of illicit drug use, COPD, obesity, GERD, congestive heart failure, coronary artery disease with stenting in 2011 as well as 2019, pacemaker defibrillator,?previous cellulitis of the lower extremities and groin, who presents today for evaluation of lower extremity edema and 11 pound weight gain. Patient states that over the last 3 to 4 days it has been extremely hot out because of this he has been drinking a lot of extra water. He has been taking his water pill as directed but is noticed continuous gaining weight and feeling of edema. He denies any shortness of breath or chest pain. He denies any vomiting or diarrhea. He denies any fever or chills. He has also noticed a small nodule on the suprapubic region in the subcutaneous fat which is slightly tender. He denies any other complaints. No other modifying factors. He denies any chest pain or pleuritic chest pain. Exam demonstrates pitting edema of the lower extremities. Lungs are clear. No hypoxemia or shortness of breath. Additionally the patient has a small nodule in the suprapubic region, likely an early infection. No evidence of cellulitis necrotizing fasciitis or gangrene. We will treat for congestive heart failure with fluid overload/edema secondary to his increased water intake. We will give 60 to 80 mg of IV Lasix. Additionally as a precaution secondary to his history of previous infections which developed rather rapidly we will start the patient on clindamycin therapy for the small early area of infection. No evidence of large abscess needs drainage at this time. 1:14 PM Laboratory work-up demonstrates a low potassium, magnesium is normal. Patient was given 40 of oral potassium. We will also give some IV potassium but patient did not tolerate this well. We will transition to an extended oral potassium dosing. Will give 20 mEq twice daily for the next 5 days. Patient is urinating and peeing well. No signs of obstruction. Will recommend double dose of Lasix tomorrow, and then transition back to normal after that. Will give clindamycin to help stave off any worsening of the very mild and early infection that he does have currently in the subcutaneous area near his suprapubic space. No evidence of cellulitis or other concerning infection otherwise. Patient otherwise stable for discharge. Diagnosis mild fluid overload and mild folliculitis. Discussed red flags for which to return. I have extensively reviewed the treatment plan and discharge instructions with the patient. I have addressed all patient concerns at this time. The patient was made aware of what symptoms to monitor for that would warrant a return to the emergency department. Discussed the plan with the patient, they demonstrate verbal understanding and agreement with our assessment and plan at this time. The documentation in this chart was dictated using [employer] dictation software. Please excuse any dictation errors. HPI General Date/Time Provider Initiated Documentation: 10/28/22 12:52 . HPI Narrative: This is a 52-year-old male with a past medical history of illicit drug use, COPD, obesity, GERD, congestive heart failure, coronary artery disease with stenting in 2011 as well as 2020, pacemaker defibrillator,?previous cellulitis of the lower extremities and groin, who presents today for evaluation of lower extremity edema and 11 pound weight gain. Patient states that over the last 3 to 4 days it has been extremely hot out because of this he has been drinking a lot of extra water. He has been taking his water pill as directed but is noticed continuous gaining weight and feeling of edema. He denies any shortness of breath or chest pain. He denies any vomiting or diarrhea. He denies any fever or chills. He has also noticed a small nodule on the suprapubic region in the subcutaneous fat which is slightly tender. He denies any other complaints. No other modifying factors. He denies any chest pain or pleuritic chest pain. Related Data Home Medications Medication Instructions Recorded Confirmed aspirin 81 mg tablet,delayed 81 mg PO DAILY 01/06/22 10/14/22 release atorvastatin 80 mg tablet 80 mg PO DAILY #30 tabs 01/06/22 10/14/22 clopidogrel 75 mg tablet (Plavix) 75 mg PO DAILY #30 tabs 01/06/22 10/14/22 isosorbide mononitrate 30 mg 30 mg PO DAILY 01/06/22 10/14/22 tablet,extended release 24 hr pantoprazole 40 mg tablet,delayed 40 mg PO DAILY #30 tabs 01/06/22 10/14/22 release (Protonix) ranolazine 500 mg tablet,extended 500 mg PO BID 01/06/22 10/14/22 release,12 hr citalopram 20 mg tablet 20 mg PO DAILY 06/14/22 10/14/22 albuterol sulfate 90 mcg/actuation 2 inh inhalation Q4H PRN #1 ea 06/17/22 10/14/22 breath activated powder inhaler tiotropium 2.5 mcg-olodaterol 2.5 2 puff inhalation DAILY #4 grams 06/17/22 10/14/22 mcg/actuation mist for inhalation (Stiolto Respimat) nitroglycerin 0.4 mg sublingual 0.4 mg sublingual Q5-15M PRN chest 07/03/22 10/14/22 tablet pain #90 tabs amiodarone 100 mg tablet 100 mg PO DAILY 08/05/22 10/14/22 ipratropium 0.5 mg-albuterol 3 mg 3 ml UPD Q6H PRN PRN wheezing #180 09/25/22 10/14/22 (2.5 mg base)/3 mL nebulization mL soln lorazepam 1 mg tablet 1 mg PO TID PRN PRN anxiety #10 09/25/22 10/14/22 tabs nicotine 21 mg/24 hr daily 21 mg transdermal DAILY #30 ea 09/25/22 10/14/22 transdermal patch potassium chloride 20 mEq 20 meq PO DAILY #10 tabs 09/25/22 10/14/22 tablet,extended release(part/cryst) (Klor-Con M) sodium chloride 0.65 % nasal spray 2 spray NS QID PRN PRN nasal 09/25/22 10/14/22 aerosol (Deep Sea Nasal) congestion #44 mL torsemide 20 mg tablet 60 mg PO DAILY #90 tabs 09/25/22 10/14/22 Oxygen 10/05/22 10/14/22 acetaminophen 500 mg capsule 1,000 mg PO Q6H PRN 10/05/22 10/14/22 budesonide-formoterol HFA 80 2 puff inhalation BID 10/05/22 10/14/22 mcg-4.5 mcg/actuation aerosol inhaler buspirone 15 mg tablet 15 mg PO TID 10/05/22 10/14/22 gabapentin 100 mg capsule 500 mg PO QID 10/05/22 10/14/22 melatonin 10 mg capsule 10 mg PO HS PRN 10/05/22 10/14/22 multivitamin with iron-mineral 1 tab PO DAILY 10/05/22 10/14/22 (Super Multiple tablet) spironolactone 25 mg tablet 25 mg PO DAILY 10/05/22 10/14/22 trazodone 50 mg tablet 50 mg PO QHS PRN 10/05/22 10/14/22 folic acid 1 mg tablet 1,000 mcg PO DAILY 10/08/22 buprenorphine 2 mg-naloxone 0.5 mg 2 film buccal QID 10/12/22 sublingual film hydralazine 50 mg tablet 50 mg PO TID 10/12/22 clindamycin HCl 150 mg capsule 150 mg PO TID 7 days #21 caps 10/28/22 (Cleocin HCl) potassium chloride 20 mEq oral 20 meq PO BID 5 days #10 ea 10/28/22 packet (Klor-Con) Previous Rx's Medication Instructions Recorded atorvastatin 80 mg tablet 80 mg PO DAILY #30 tabs 01/06/22 clopidogrel 75 mg tablet (Plavix) 75 mg PO DAILY #30 tabs 01/06/22 pantoprazole 40 mg tablet,delayed 40 mg PO DAILY #30 tabs 01/06/22 release (Protonix) albuterol sulfate 90 mcg/actuation 2 inh inhalation Q4H PRN #1 ea 06/17/22 breath activated powder inhaler tiotropium 2.5 mcg-olodaterol 2.5 2 puff inhalation DAILY #4 grams 06/17/22 mcg/actuation mist for inhalation (Stiolto Respimat) nitroglycerin 0.4 mg sublingual 0.4 mg sublingual Q5-15M PRN chest 07/03/22 tablet pain #90 tabs ipratropium 0.5 mg-albuterol 3 mg 3 ml UPD Q6H PRN PRN wheezing #180 09/25/22 (2.5 mg base)/3 mL nebulization mL soln lorazepam 1 mg tablet 1 mg PO TID PRN PRN anxiety #10 09/25/22 tabs nicotine 21 mg/24 hr daily 21 mg transdermal DAILY #30 ea 09/25/22 transdermal patch potassium chloride 20 mEq 20 meq PO DAILY #10 tabs 09/25/22 tablet,extended release(part/cryst) (Klor-Con M) sodium chloride 0.65 % nasal spray 2 spray NS QID PRN PRN nasal 09/25/22 aerosol (Deep Sea Nasal) congestion #44 mL torsemide 20 mg tablet 60 mg PO DAILY #90 tabs 09/25/22 clindamycin HCl 150 mg capsule 150 mg PO TID 7 days #21 caps 10/28/22 (Cleocin HCl) potassium chloride 20 mEq oral 20 meq PO BID 5 days #10 ea 10/28/22 packet (Klor-Con) Allergies Allergy/AdvReac Type Severity Reaction Status Date / Time hydromorphone [From Dilaudid] Allergy Verified 10/08/22 14:07 General Stated Complaint: SOB GLADIS: 3 Review of Systems All systems reviewed & are unremarkable except as noted in HPI and below PFSH All Active Problems (Updated 10/28/22 @ 15:14 by Israel Rosa DO) Acute hypokalemia (Acute) Fluid overload (Acute) Folliculitis (Acute) Erectile dysfunction (Acute) On senior care drug therapy (Acute) Acute respiratory failure with hypoxia and hypercapnia (Acute) Acute on chronic combined systolic (congestive) and diastolic (congestive) heart failure (Acute) Sepsis (Acute) History of Brittany's gangrene (Acute) Obesity, morbid, BMI 40.0-49.9 (Acute) Obesity hypoventilation syndrome (Chronic) Left thigh pain (Acute) Acute respiratory failure with hypoxia (Acute) Multifocal pneumonia (Acute) Somnolence (Acute) Hypokalemia (Acute) Lactic acidosis (Acute) Thrombocytosis (Acute) Leukocytosis (Acute) CHF exacerbation (Acute) Respiratory failure with hypoxia and hypercapnia (Acute) Diastolic heart failure (Acute) Consolidation of left lower lobe of lung (Acute) Anxiety (Acute) Cellulitis of leg, left (Acute) Angina pectoris (Chronic) GERD (gastroesophageal reflux disease) (Chronic) Depression (Chronic) Morbid obesity (Chronic) AICD (automatic cardioverter/defibrillator) present (Acute) placed at [facility] for ischemic dilated cardiomyopathy [employer] Margaret MACDONALD 01/27/21 RH HLD (hyperlipidemia) (Acute) ETOH abuse (Chronic) Drug dependence (Chronic) COPD (chronic obstructive pulmonary disease) (Chronic) Acute on chronic heart failure with reduced ejection fraction and diastolic dysfunction (Acute) Ischemic cardiomyopathy (Chronic) Afib (Chronic) Tobacco use disorder (Acute) Hx of hyperlipidemia (Acute) HTN (hypertension) (Chronic) CAD (coronary artery disease) (Chronic) Medical History Alcohol use disorder, severe, dependence [facility] 01/21 Cardiac arrest CHF (congestive heart failure) Dental infection Exertional chest pain Homelessness Medication monitoring encounter Pacemaker Pulmonary nodules Surgical History History of coronary artery stent placement History of hernia repair History of right knee joint replacement History of tonsillectomy Social History Smoking/Tobacco Use Status: Current every day Tobacco Type: cigarettes Smoking risk assessment performed?: Yes Alcohol Intake: former Year quit: 2020 Details: Former heavy alcohol use. Drug use: Current Sobriety Substance use type: former substance user, marijuana and prescription drug Do you feel safe at home: Yes Do you feel safe in your relationship?: Yes Exam Narrative Exam Narrative: 1.Const: Well-nourished, Well-developed, appearing stated age 2.Eyes: PERRL, no conjunctival injection, and symmetrical lids. 3.ENT: Atraumatic external nose and ears. Moist MM. Neck: Symmetric, trachea midline, No thyromegaly. 4.CVS: +S1/S2, No murmurs or gallops. Peripheral pulses 2+ and equal in all extremities. Brisk capillary refill in all extremities. 5.RESP: Unlabored respiratory effort. Clear to auscultation bilaterally. No wheezes rales or rhonchi 6.GI: Soft, Nontender/Nondistended, No hepatosplenomegaly. No guarding or rebound. 7.MSK: Normocephalic/Atraumatic, Extremities w/o deformity or ttp No cyanosis or clubbing, Normal movement of all extremities. +2 pitting edema lower extremities bilaterally. 8.Skin: Warm, Dry. No rashes. Patient does demonstrate evidence of a small lesion in the suprapubic region there is minimally indurated. No drainage or discharge. No redness or erythema. No subcutaneous crepitus. Diameter is palpable at about 0.5 centimeters. 9.Neuro: cartridge filler II-XII grossly intact. Sensation grossly intact, no focal neurologic deficits. 10.Psych: (AAO) x3. Appropriate mood and affect Course Vital Signs Vital signs: Vital Signs Temperature 36.4 C L 10/28/22 12:46 Pulse 80 10/28/22 12:46 Respiratory Rate 20 10/28/22 12:46 Blood Pressure 97/57 L 10/28/22 12:46 Pulse Oximetry 94 10/28/22 12:46 Temperature 36.4 C L 10/28/22 12:46 Temperature Source Skin 10/28/22 12:46 Pulse 80 10/28/22 12:46 Respiratory Rate 20 10/28/22 12:46 Blood Pressure 97/57 L 10/28/22 12:46 Blood Pressure Position Sitting 10/28/22 12:46 Pulse Oximetry 94 10/28/22 12:46 Oxygen Delivery Method Room Air 10/28/22 12:46 Oxygen Flow Rate 0 10/28/22 12:46
[2022-10-28 13:24] LABS: Abs Immature Grans 0.03 10^3/uL (0.0-0.06); Absolute Basophil Count 0.09 10^3/uL (0.0-0.2); Absolute Eosinophil Count 0.47 10^3/uL (0.0-0.7); Absolute Lymphocyte Count 3.34 10^3/uL (1.2-3.4); Absolute Neutrophil Count 5.26 10^3/uL (1.2-6.7); Basophils % 0.9; Eosinophils % 4.7; HCT 40.2 % (40.0-50.0); Immature Grans % 0.3; Lymphocytes % 33.4; MCH 28.5 pg (27.0-33.0); MCHC 32.3 % (32.0-36.0); MCV 88 fL (80-95); MPV 8.8 fL (8.0-11.0); Neutrophils % 52.7; Platelet Count 518 10^3/uL (130-400); RBC 4.56 10^6/uL (4.36-5.78); RDW 15.9 % (11.8-14.1); RDW-SD 51.7 fL; WBC 9.99 10^3/uL (4.4-10.8)
[2022-10-28] MEDS: CLINDAMYCIN 600 MG/50 ML BAG 100 MG IVPB (13:25)
[2022-10-28] MEDS: Furosemide 100 MG/10 ML VIAL 80 MG IVP (13:25)
[2022-10-28 13:36] VITALS: BP 123/73; PULSE 70; RESP 18; O2SAT 94
[2022-10-28 13:54] LABS: ALT 24 U/L (16-63); AST 16 U/L (15-37); Albumin 3.6 g/dL (3.4-5.0); Alkaline Phosphatase 111 U/L (46-116); Anion Gap 4.5 mmol/L (3-11); BUN 13 mg/dL (7-18); Bilirubin, Total 0.3 mg/dL (0.2-1.0); CO2 38.5 mmol/L (21.0-32.0); Calcium 9.2 mg/dL (8.5-10.1); Chloride 91 mmol/L (98-107); Estimated GFR 89.44 (mL/min/1.73m2); Glucose 119 mg/dL (74-106); NT-proBNP 316 pg/mL (<300); Sodium 134 mmol/L (136-145); Total Protein 8.2 g/dL (6.4-8.2)
[2022-10-28 13:58] LABS: Potassium 2.9 mmol/L (3.5-5.1)
[2022-10-28] MEDS: Potassium Chloride 20 MEQ TABCR 40 MEQ PO (14:25)
[2022-10-28] MEDS: POTASSIUM CHLORIDE 20 MEQ/100 ML BAG 50 MEQ IVPB (14:26)
== END 2022-10-28 15:22 | disposition home or self-care (01) ==
PROVIDERS: Emergency Provider Student in an Organized Health Care Education/Training Program; PCP Nurse Practitioner Family
DX: R22.43 Localized swelling, mass and lump, lower limb, bilateral (principal); E87.6 Hypokalemia; E87.70 Fluid overload, unspecified; L73.9 Follicular disorder, unspecified; J44.9 Chronic obstructive pulmonary disease, unspecified; I11.0 Hypertensive heart disease with heart failure; I50.32 Chronic diastolic (congestive) heart failure; I25.10 Atherosclerotic heart disease of native coronary artery without angina pectoris; Z95.5 Presence of coronary angioplasty implant and graft; Z95.810 Presence of automatic (implantable) cardiac defibrillator
CPT/HCPCS: 36415; 80053; 96365; 96367; 96375; 99284; 83735; 83880; 85025; 99283; J1940; J3480

== ENCOUNTER 2022-11-03 15:02 | Emergency (ER) | payer MEDICAID, SELFPAY ==
[2022-11-03] VITALS (38 sets, daily range): BP systolic 82–162; BP diastolic 50–134; PULSE 66–106; RESP 7–28; TEMP 36.3; O2SAT 78–100
--- NOTE | 2022-11-03 15:00 | RT.EKG_ITS ---
APPROVED REPORT Exam: Resting ECG Reason for Exam: sob,fainting Patient Location: E HR:80 bpm ECG Measurements Heart Rate 80 AXIS WY 174 P 53 QRSd 111 QRS 39 QT 403 T 97 QTc 466 Conclusion Sinus rhythm...normal P axis, V-rate 60- 99 Inferior infarct, old...Q >35mS, II III aVF Abnrm R prog, consider ASMI or lead placement...Q >30mS, diminished R, V1-V2 Nonspecific T abnormalities, lateral leads...T <-0.10mV, I aVL V5 V6
--- NOTE | 2022-11-03 15:45 | DI.CT_ITS ---
Exam(s) CT CHEST PE CTA EXAM: CT CHEST PE CTA CLINICAL HISTORY: chest pain, sob, hypoxia. TECHNIQUE: Imaging Protocol: Axial CT angiography was performed with multi-slice acquisition and mu lti-planar reconstructions as well as axial, coronal and sagittal MIP reconstructions. CONTRAST MATERIAL: Intravenous: Omnipaque 350 Contrast volume:100 ml COMPARISON: CT CT CHEST PE ABD PELVIS W from 09/17/2022 CR XR PORTABLE CHEST AP from 09/18/2022 FINDINGS: Pulmonary Arteries: No evidence of filling defect to suggest pulmonary emboli. Tracheobronchial tree: Patent where visualized. Mediastinum and Lorraine: No dominant adenopathy or fluid collection. Pulmonary parenchyma: Not well evaluated due to respiratory motion and dependent changes. No consoli dation or dominant measurable mass. Pleura: No effusion or pneumothorax. Heart: The heart is mildly dilated. Coronary artery calcifications and/or stents are seen. Aorta: Thoracic aorta non-dilated. No aneurysm. No dissection. Upper abdomen: Atrophic pancreas. Large quantity of stool. Bones: Old left rib fractures. Degenerative changes in the spine. Tubes, Catheters, and Lines: Pacemaker IMPRESSION: No evidence of pulmonary embolism or other acute abnormality.. RADIATION DOSE DELIVERED: 719.99mGy.cm Total DLP DATA REPOSITORY: All CT scans at this facility are submitted to the National Radiology Data Registry (NRDR) Dose Index Registry (DIR) with the [employer] (ACR). RADIATION OPTIMIZATION: All CT scans at this facility use at least one of these dose optimization te chniques: automated exposure control; mA and/or kV adjustment per patient size (includes targeted exa ms where dose is matched to clinical indication); or iterative reconstruction.
[2022-11-03 15:51] LABS: Abs Immature Grans 0.02 10^3/uL (0.0-0.06); Absolute Basophil Count 0.08 10^3/uL (0.0-0.2); Absolute Lymphocyte Count 2.49 10^3/uL (1.2-3.4); Absolute Monocyte Count 0.87 10^3/uL (0.1-0.8); Basophils % 0.7; Eosinophils % 4.2; HCT 40.3 % (40.0-50.0); HGB 12.7 g/dL (13.5-17.5); Immature Grans % 0.2; Lymphocytes % 20.8; MCH 28.7 pg (27.0-33.0); MCHC 31.5 % (32.0-36.0); MCV 91 fL (80-95); MPV 8.3 fL (8.0-11.0); Monocytes % 7.3; Neutrophils % 66.8; Platelet Count 473 10^3/uL (130-400); RBC 4.42 10^6/uL (4.36-5.78); RDW 15.9 % (11.8-14.1); RDW-SD 53.4 fL; WBC 11.97 10^3/uL (4.4-10.8)
[2022-11-03] MEDS: Aspirin 81 MG CHEW 324 MG CH (15:54)
[2022-11-03 16:16] LABS: ALT 20 U/L (16-63); AST 30 U/L (15-37); Albumin 3.4 g/dL (3.4-5.0); Alkaline Phosphatase 102 U/L (46-116); Anion Gap 1.7 mmol/L (3-11); BUN 8 mg/dL (7-18); Bilirubin, Total 0.3 mg/dL (0.2-1.0); CO2 39.3 mmol/L (21.0-32.0); CREATININE 1.1 mg/dL (0.70-1.30); Calcium 8.8 mg/dL (8.5-10.1); Chloride 95 mmol/L (98-107); Estimated GFR 79.77 (mL/min/1.73m2); Glucose 183 mg/dL (74-106); Magnesium 1.6 mg/dL (1.8-2.4); Potassium 3.6 mmol/L (3.5-5.1); Sodium 136 mmol/L (136-145); TSH (W/Ref FT4) 0.79 uIU/mL (0.36-3.74); Total Protein 7.9 g/dL (6.4-8.2)
[2022-11-03 16:18] LABS: Troponin I 1942 ng/L (<or=60)
[2022-11-03 16:28] LABS: D-Dimer 900 ng/mlFEU (<500)
[2022-11-03 16:38] LABS: *AMPHETAMINES SCREEN URINE Negative (Negative); *BARBITURATES SCREEN URINE Negative (Negative); *BENZODIAZEPINES SCREEN URINE Negative (Negative); Cannabinoids THC Negative (Negative); Cocaine Screen,Urine Negative (Negative); METHADONE URINE SCREEN Negative (Negative); OPIATES URINE SCREEN Negative (Negative)
[2022-11-03 16:39] LABS: Tricyclic Antidepressants Negative (Negative)
[2022-11-03] MEDS: Omnipaque 350 MG/ML 100 ML BTL IJ (16:43)
[2022-11-03] MEDS: Normal Saline - Diluent 50 ML VIAL IJ (16:43)
[2022-11-03] MEDS: Normal Saline Flush 10 ML SYR IVP (17:02)
--- NOTE | 2022-11-03 17:16 | NUR.NOTE ---
Nursing Note: Patients SaO2 consistently dropping to low 80's. Patient placed on 1L per provider.
--- NOTE | 2022-11-03 17:17 | DI.VRAD_ITS ---
PROCEDURE INFORMATION: Exam: CTA Chest With Contrast Exam date and time: 11/03/2022 4:45 PM Age: 52 years old Clinical indication: Other: Chest pain, SOB, hypoxia; Prior surgery; Surgery date: 6+ months; Surgery type: Pacemaker TECHNIQUE: Imaging protocol: Computed tomographic angiography of the chest with contrast. Exam focused on the arteries. 3D rendering (Not supervised by radiologist): MIP and/or 3D reconstructed images were created by the technologist. Radiation optimization: All CT scans at this facility use at least one of these dose optimization techniques: automated exposure control; mA and/or kV adjustment per patient size (includes targeted exams where dose is matched to clinical indication); or iterative reconstruction. Contrast material: OMNIPAQUE 350; Contrast volume: 100 ml; Contrast route: INTRAVENOUS (IV); COMPARISON: CT CHEST PE ABD PELVIS W 09/17/2022 8:58 AM FINDINGS: Tubes, catheters and devices: Pacemaker. Pulmonary arteries: Normal. No pulmonary emboli. Aorta: Unremarkable. No aortic aneurysm. No aortic dissection. Lungs: Pneumatocele left apex. Pleural spaces: Unremarkable. No pneumothorax. No pleural effusion. Heart: Unremarkable. No cardiomegaly. No pericardial effusion. Coronary arteries: Coronary artery calcifications. Lymph nodes: Unremarkable. No enlarged lymph nodes. Bones/joints: Old left rib fractures. Soft tissues: Unremarkable. IMPRESSION: No acute findings. No pulmonary embolism identified. Dictated and Authenticated by: Radha Tirado MD. Ordering:PATRIA Hernandez MD
[2022-11-03 17:44] LABS: BE (Venous) 14 mmol/L (-2-3); HCO3 (Venous) 40 mmol/L (23-28); O2 Sat (Venous) 84 %; TCO2 (Venous) 37 mmol/L (24-29); pH (Venous) 7.34 (7.31-7.41); pO2 (Venous) 44 mmHg
[2022-11-03 17:47] LABS: pCO2 (Venous) 74 mmHg (41-51)
--- NOTE | 2022-11-03 18:00 | RT.EKG_ITS ---
APPROVED REPORT Exam: Resting ECG Reason for Exam: chest pain Patient Location: E HR:66 bpm ECG Measurements Heart Rate 66 AXIS LA 193 P 60 QRSd 108 QRS 26 QT 445 T 83 QTc 468 Conclusion Sinus rhythm...normal P axis, V-rate 60- 99 Inferior infarct, old...Q >35mS, II III aVF
[2022-11-03 18:08] LABS: Troponin I 2290 ng/L (<or=60)
[2022-11-03] MEDS: Albuterol/Ipratropium 3 ML UPD VIAL UPD (18:10)
[2022-11-03] MEDS: MAGNESIUM SULFATE 1 GM/100 ML BAG IVPB (18:20)
[2022-11-03] MEDS: Heparin in 0.45% NaCl 25,000 UNIT/250 ML BAG 10 UNIT IV (18:21)
--- NOTE | 2022-11-03 18:27 | ED.GENADUL_ITS ---
Discharge Plan Disposition Patient Disposition: Transfer-Acute Inpatient Care Specific Acute Inpt Facility: [facility] Condition: Critical Discharge Details Clinical Impression: Acute non-ST elevation myocardial infarction (NSTEMI), Hypercapnia, Morbid obesity, Hx of hyperlipidemia, Drug dependence, COPD (chronic obstructive pulmonary disease) Primary Care Provider: Gerri Silverman ED Provider: Mary Hankins Home Meds and New Rx's Prescriptions: No Action nitroglycerin 0.4 mg tablet, sublingual 0.4 mg sublingual Q5-15M PRN (Reason: chest pain) Qty: 90 3RF Rx Instructions: do not exceed 3 doses per episode folic acid 1 mg tablet 1,000 mcg PO DAILY Patient Comments: 10/07/22 per PCP prescribed as 1 mg daily RH amiodarone 100 mg tablet 100 mg PO DAILY Patient Comments: 08/05/[address] More on 07/01/22, PCP office noticed change RH buspirone 15 mg tablet 15 mg PO TID gabapentin 100 mg capsule 500 mg PO QID budesonide-formoterol 80-4.5 mcg/actuation HFA aerosol inhaler 2 puff inhalation BID acetaminophen 500 mg capsule 1,000 mg PO Q6H PRN spironolactone 25 mg tablet 25 mg PO DAILY Super Multiple Tablet 1 tab PO DAILY melatonin 10 mg capsule 10 mg PO HS PRN trazodone 50 mg tablet 50 mg PO QHS PRN (DME) Oxygen Tank See Rx Instructions .Route Rx Instructions: 2-3L as needed hydralazine 50 mg tablet 50 mg PO TID Patient Comments: 10/12/22 verified from pcp med list jwo buprenorphine-naloxone 2-0.5 mg film 2 film buccal QID Patient Comments: 11/03/22 - patient states he is on 20mg now. Goes through [facility] 10/12/22 updated from pcp list jwo Rx Instructions: place 2 strip/tab under (each) side of tongue citalopram 20 mg Tablet 20 mg PO DAILY Stiolto Respimat 2.5-2.5 mcg/actuation mist 2 puff inhalation DAILY Qty: 4 0RF albuterol sulfate 90 mcg/actuation aerosol powdr breath activated 2 inh inhalation Q4H PRNQty: 1 0RF nicotine 21 mg/24 hr Patch 24 Hour 21 mg transdermal DAILY Qty: 30 0RF ipratropium-albuterol 0.5 mg-3 mg(2.5 mg base)/3 mL Solution For Nebulization 3 ml UPD Q6H PRN PRN (Reason: wheezing) Qty: 180 0RF lorazepam 1 mg Tablet 1 mg PO TID PRN PRN (Reason: anxiety) Qty: 10 0RF potassium chloride [Klor-Con M20] 20 mEq Tablet,Er Particles/Crystals 20 meq PO DAILY Qty: 10 0RF Deep Sea Nasal 0.65 % Aerosol,[place] 2 spray NS QID PRN PRN (Reason: nasal congestion) Qty: 44 0RF torsemide 20 mg tablet 60 mg PO DAILY Qty: 90 3RF clindamycin HCl [Cleocin HCl] 150 mg capsule 150 mg PO TID 7 Days Qty: 21 0RF isosorbide mononitrate 30 mg Tablet Extended Release 24 Hr 30 mg PO DAILY aspirin 81 mg Tablet,Delayed Release (Dr/Ec) 81 mg PO DAILY ranolazine 500 mg Tablet Extended Release 12 Hr 500 mg PO BID atorvastatin 80 mg tablet 80 mg PO DAILY Qty: 30 0RF clopidogrel [Plavix] 75 mg tablet 75 mg PO DAILY Qty: 30 0RF pantoprazole [Protonix] 40 mg tablet,delayed release (DR/EC) 40 mg PO DAILY Qty: 30 0RF Discharge Data Discharge Date/Time-TO BE ENTERED AT DEPARTURE: 11/03/22 19:41 Medical Decision Making <SHERINE Marie - Last Filed: 11/04/22 08:31> This is a complex 52-year-old gentleman with history of multiple comorbidities reevaluated on several occasions for similar presentation at this facility who presents for worsening of his symptoms and need for recurrent nitroglycerin use without alleviation in symptoms today Concern for unstable anginal presentation Troponin looks like its been elevated throughout his entire visits recently, however today at 1987 progressing to 2200 on repeat assessment concern for non- STEMI ST elevation [place], case discussed with Dr. Ambriz who accepts patient to Dr. Romero cardiology service Repeat EKG was ordered and does not show acute change D-dimer was 900, CTA PE was ordered, this was negative for acute abnormality Echocardiogram from August 2022 was reviewed and patient's prior cardiology notes from our team that show significant history of ischemic cardiomyopathy with polysubstance abuse and 4 prior stents, the most recent stent sounds like it was in 2019 patient had a recent hospitalization with non-STEMI several months prior to this assessment Patient has received 324 of aspirin, 75 mg of Plavix prior to arrival, 1 nitroglycerin prior to arrival, pain-free at time of reassessment Heparin bolus and infusion for ACS was initiated Patient continues to complain of anxiety, given his respiratory complaints and other comorbidities did hold off on Ativan, however we will give 0.5 mg for transportation Maintain telemetry monitoring, blood pressure has been since on the low end of normal but has been stable throughout this encounter leg No evidence of infectious etiology of patient's complaints Low suspicion for myocarditis or endocarditis, no history of IV drug abuse Patient wishes to be full CODE STATUS at this time, his oxygen saturation sounds like its baseline for him including the hypercapnia, this is reviewed with respiratory and they think this is patient's baseline and recommend CPAP but do not feel like emergent BiPAP is necessary at this time, DuoNeb was administered, patient tolerating 1 L of oxygen well, is alert and oriented and does not appear to be encephalopathic At this time, patient will be transferred to [facility], we received acceptance Medical Records Medical records reviewed: Yes I reviewed the patient's medical records. Lab Data Lab results reviewed: Yes I reviewed the patient's lab results. <Gino Dodd MD - Last Filed: 11/04/22 13:03> Lab Data Labs: Laboratory Tests Range/Units 11/03/22 11/03/22 11/03/22 15:30 15:30 15:30 WBC (4.4-10.8) 10^3/uL 11.97 H RBC (4.36-5.78) 10^6/uL 4.42 Hgb (13.5-17.5) g/dL 12.7 L Hct (40.0-50.0) % 40.3 MCV (80-95) fL 91 MCH (27.0-33.0) pg 28.7 MCHC (32.0-36.0) % 31.5 L RDW (11.8-14.1) % 15.9 H Plt Count (130-400) 10^3/uL 473 H MPV (8.0-11.0) fL 8.3 Immature Gran % 0.2 Neutrophils % 66.8 Lymphocytes % 20.8 Monocytes % 7.3 Eosinophils % 4.2 Basophils % 0.7 Nucleated RBC % (0.0-0.3) % 0.0 Absolute Neutrophils (1.2-6.7) 10^3/uL 8.00 H Absolute Lymphocytes (1.2-3.4) 10^3/uL 2.49 Absolute Monocytes (0.1-0.8) 10^3/uL 0.87 H Absolute Eosinophils (0.0-0.7) 10^3/uL 0.50 Absolute Basophils (0.0-0.2) 10^3/uL 0.08 D-Dimer (<500) ng/mlFEU 900 H VBG pH (7.31-7.41) VBG pCO2 (41-51) mmHg VBG pO2 mmHg VBG HCO3 (23-28) mmol/L VBG Total CO2 (24-29) mmol/L VBG O2 Saturation % VBG Base Excess (-2-3) mmol/L Sodium (136-145) mmol/L 136 Potassium (3.5-5.1) mmol/L 3.6 Chloride (98-107) mmol/L 95 L Carbon Dioxide (21.0-32.0) mmol/L 39.3 H Anion Gap (3-11) mmol/L 1.7 L BUN (7-18) mg/dL 8 Creatinine (0.70-1.30) mg/dL 1.1 Est GFR (CKD-EPI 2020) (mL/min/1.73m2) 79.77 Glucose (74-106) mg/dL 183 H Calcium (8.5-10.1) mg/dL 8.8 Magnesium (1.8-2.4) mg/dL 1.6 L Total Bilirubin (0.2-1.0) mg/dL 0.3 AST (15-37) U/L 30 ALT (16-63) U/L 20 Alkaline Phosphatase (46-116) U/L 102 Troponin I (<or=60) ng/L 1942 H* Total Protein (6.4-8.2) g/dL 7.9 Albumin (3.4-5.0) g/dL 3.4 TSH (0.36-3.74) uIU/mL 0.79 Urine Opiates Screen (Negative) Urine Methadone Screen (Negative) Ur Barbiturates Screen (Negative) Ur Tricyclics Screen (Negative) Ur Amphetamines Screen (Negative) U Benzodiazepines Scrn (Negative) Urine Cocaine Screen (Negative) Ur THC Screen (Negative) Range/Units 11/03/22 11/03/22 11/03/22 15:50 17:40 17:40 WBC (4.4-10.8) 10^3/uL RBC (4.36-5.78) 10^6/uL Hgb (13.5-17.5) g/dL Hct (40.0-50.0) % MCV (80-95) fL MCH (27.0-33.0) pg MCHC (32.0-36.0) % RDW (11.8-14.1) % Plt Count (130-400) 10^3/uL MPV (8.0-11.0) fL Immature Gran % Neutrophils % Lymphocytes % Monocytes % Eosinophils % Basophils % Nucleated RBC % (0.0-0.3) % Absolute Neutrophils (1.2-6.7) 10^3/uL Absolute Lymphocytes (1.2-3.4) 10^3/uL Absolute Monocytes (0.1-0.8) 10^3/uL Absolute Eosinophils (0.0-0.7) 10^3/uL Absolute Basophils (0.0-0.2) 10^3/uL D-Dimer (<500) ng/mlFEU VBG pH (7.31-7.41) 7.34 VBG pCO2 (41-51) mmHg 74 H* VBG pO2 mmHg 44 VBG HCO3 (23-28) mmol/L 40 H VBG Total CO2 (24-29) mmol/L 37 H VBG O2 Saturation % 84 VBG Base Excess (-2-3) mmol/L 14 H Sodium (136-145) mmol/L Potassium (3.5-5.1) mmol/L Chloride (98-107) mmol/L Carbon Dioxide (21.0-32.0) mmol/L Anion Gap (3-11) mmol/L BUN (7-18) mg/dL Creatinine (0.70-1.30) mg/dL Est GFR (CKD-EPI 2020) (mL/min/1.73m2) Glucose (74-106) mg/dL Calcium (8.5-10.1) mg/dL Magnesium (1.8-2.4) mg/dL Total Bilirubin (0.2-1.0) mg/dL AST (15-37) U/L ALT (16-63) U/L Alkaline Phosphatase (46-116) U/L Troponin I (<or=60) ng/L 2290 H* Total Protein (6.4-8.2) g/dL Albumin (3.4-5.0) g/dL TSH (0.36-3.74) uIU/mL Urine Opiates Screen (Negative) Negative Urine Methadone Screen (Negative) Negative Ur Barbiturates Screen (Negative) Negative Ur Tricyclics Screen (Negative) Negative Ur Amphetamines Screen (Negative) Negative U Benzodiazepines Scrn (Negative) Negative Urine Cocaine Screen (Negative) Negative Ur THC Screen (Negative) Negative Range/Units 11/03/22 18:32 WBC (4.4-10.8) 10^3/uL RBC (4.36-5.78) 10^6/uL Hgb (13.5-17.5) g/dL Hct (40.0-50.0) % MCV (80-95) fL MCH (27.0-33.0) pg MCHC (32.0-36.0) % RDW (11.8-14.1) % Plt Count (130-400) 10^3/uL MPV (8.0-11.0) fL Immature Gran % Neutrophils % Lymphocytes % Monocytes % Eosinophils % Basophils % Nucleated RBC % (0.0-0.3) % Absolute Neutrophils (1.2-6.7) 10^3/uL Absolute Lymphocytes (1.2-3.4) 10^3/uL Absolute Monocytes (0.1-0.8) 10^3/uL Absolute Eosinophils (0.0-0.7) 10^3/uL Absolute Basophils (0.0-0.2) 10^3/uL D-Dimer (<500) ng/mlFEU VBG pH (7.31-7.41) VBG pCO2 (41-51) mmHg VBG pO2 mmHg VBG HCO3 (23-28) mmol/L VBG Total CO2 (24-29) mmol/L VBG O2 Saturation % VBG Base Excess (-2-3) mmol/L Sodium (136-145) mmol/L Potassium (3.5-5.1) mmol/L Chloride (98-107) mmol/L Carbon Dioxide (21.0-32.0) mmol/L Anion Gap (3-11) mmol/L BUN (7-18) mg/dL Creatinine (0.70-1.30) mg/dL Est GFR (CKD-EPI 2020) (mL/min/1.73m2) Glucose (74-106) mg/dL Calcium (8.5-10.1) mg/dL Magnesium (1.8-2.4) mg/dL Total Bilirubin (0.2-1.0) mg/dL AST (15-37) U/L ALT (16-63) U/L Alkaline Phosphatase (46-116) U/L Troponin I (<or=60) ng/L Cancelled Total Protein (6.4-8.2) g/dL Albumin (3.4-5.0) g/dL TSH (0.36-3.74) uIU/mL Urine Opiates Screen (Negative) Urine Methadone Screen (Negative) Ur Barbiturates Screen (Negative) Ur Tricyclics Screen (Negative) Ur Amphetamines Screen (Negative) U Benzodiazepines Scrn (Negative) Urine Cocaine Screen (Negative) Ur THC Screen (Negative) Date: 11/03/22 Time: 19:07 Note: Patient seen, examined, and discussed with SHERINE Hankins. I agree with treatment plan as discussed/documented. HPI <SHERINE Marie - Last Filed: 11/04/22 08:31> General Date/Time Provider Initiated Documentation: 11/03/22 15:06 . 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 He was evaluated last week for similar symptoms and was discharged home after diuresis He presents today secondary to persistent chest pain since that time with worsening dyspnea. Denies any fever or chills. Denies new cough. Has had some increased edema to bilateral lower extremities. Describes the pain as pressure. He states that he is taken approximately 5 nitro which have alleviated his pain until today, the pain started today in the middle of his chest when he was ambulatory, he did take a nitroglycerin which partially alleviated symptoms, however it persisted until 3:00 when he arrived in the emergency department. He took all of his meds today including his Plavix prior to arrival. Last used heroin 3 days prior to arrival, this was intranasally per patient. History of reported COPD, uses oxygen as needed at home per patient. Related Data Home Medications Medication Instructions Recorded Confirmed aspirin 81 mg tablet,delayed 81 mg PO DAILY 01/06/22 11/03/22 release atorvastatin 80 mg tablet 80 mg PO DAILY #30 tabs 01/06/22 11/03/22 clopidogrel 75 mg tablet (Plavix) 75 mg PO DAILY #30 tabs 01/06/22 11/03/22 isosorbide mononitrate 30 mg 30 mg PO DAILY 01/06/22 11/03/22 tablet,extended release 24 hr pantoprazole 40 mg tablet,delayed 40 mg PO DAILY #30 tabs 01/06/22 11/03/22 release (Protonix) ranolazine 500 mg tablet,extended 500 mg PO BID 01/06/22 11/03/22 release,12 hr citalopram 20 mg tablet 20 mg PO DAILY 06/14/22 11/03/22 albuterol sulfate 90 mcg/actuation 2 inh inhalation Q4H PRN #1 ea 06/17/22 11/03/22 breath activated powder inhaler tiotropium 2.5 mcg-olodaterol 2.5 2 puff inhalation DAILY #4 grams 06/17/22 11/03/22 mcg/actuation mist for inhalation (Stiolto Respimat) nitroglycerin 0.4 mg sublingual 0.4 mg sublingual Q5-15M PRN chest 07/03/22 11/03/22 tablet pain #90 tabs amiodarone 100 mg tablet 100 mg PO DAILY 08/05/22 11/03/22 ipratropium 0.5 mg-albuterol 3 mg 3 ml UPD Q6H PRN PRN wheezing #180 09/25/22 11/03/22 (2.5 mg base)/3 mL nebulization mL soln lorazepam 1 mg tablet 1 mg PO TID PRN PRN anxiety #10 09/25/22 11/03/22 tabs nicotine 21 mg/24 hr daily 21 mg transdermal DAILY #30 ea 09/25/22 11/03/22 transdermal patch potassium chloride 20 mEq 20 meq PO DAILY #10 tabs 09/25/22 11/03/22 tablet,extended release(part/cryst) (Klor-Con M) sodium chloride 0.65 % nasal spray 2 spray NS QID PRN PRN nasal 09/25/22 11/03/22 aerosol ([place] Nasal) congestion #44 mL torsemide 20 mg tablet 60 mg PO DAILY #90 tabs 09/25/22 11/03/22 Oxygen 10/05/22 11/03/22 acetaminophen 500 mg capsule 1,000 mg PO Q6H PRN 10/05/22 11/03/22 budesonide-formoterol HFA 80 2 puff inhalation BID 10/05/22 11/03/22 mcg-4.5 mcg/actuation aerosol inhaler buspirone 15 mg tablet 15 mg PO TID 10/05/22 11/03/22 gabapentin 100 mg capsule 500 mg PO QID 10/05/22 11/03/22 melatonin 10 mg capsule 10 mg PO HS PRN 10/05/22 11/03/22 multivitamin with iron-mineral 1 tab PO DAILY 10/05/22 11/03/22 (Super Multiple tablet) spironolactone 25 mg tablet 25 mg PO DAILY 10/05/22 11/03/22 trazodone 50 mg tablet 50 mg PO QHS PRN 10/05/22 11/03/22 folic acid 1 mg tablet 1,000 mcg PO DAILY 10/08/22 11/03/22 buprenorphine 2 mg-naloxone 0.5 mg 2 film buccal QID 10/12/22 11/03/22 sublingual film hydralazine 50 mg tablet 50 mg PO TID 10/12/22 11/03/22 clindamycin HCl 150 mg capsule 150 mg PO TID 7 days #21 caps 10/28/22 11/03/22 (Cleocin HCl) Previous Rx's Medication Instructions Recorded atorvastatin 80 mg tablet 80 mg PO DAILY #30 tabs 01/06/22 clopidogrel 75 mg tablet (Plavix) 75 mg PO DAILY #30 tabs 01/06/22 pantoprazole 40 mg tablet,delayed 40 mg PO DAILY #30 tabs 01/06/22 release (Protonix) albuterol sulfate 90 mcg/actuation 2 inh inhalation Q4H PRN #1 ea 06/17/22 breath activated powder inhaler tiotropium 2.5 mcg-olodaterol 2.5 2 puff inhalation DAILY #4 grams 06/17/22 mcg/actuation mist for inhalation (Stiolto Respimat) nitroglycerin 0.4 mg sublingual 0.4 mg sublingual Q5-15M PRN chest 07/03/22 tablet pain #90 tabs ipratropium 0.5 mg-albuterol 3 mg 3 ml UPD Q6H PRN PRN wheezing #180 09/25/22 (2.5 mg base)/3 mL nebulization mL soln lorazepam 1 mg tablet 1 mg PO TID PRN PRN anxiety #10 09/25/22 tabs nicotine 21 mg/24 hr daily 21 mg transdermal DAILY #30 ea 09/25/22 transdermal patch potassium chloride 20 mEq 20 meq PO DAILY #10 tabs 09/25/22 tablet,extended release(part/cryst) (Klor-Con M) sodium chloride 0.65 % nasal spray 2 spray NS QID PRN PRN nasal 09/25/22 aerosol ([place] Nasal) congestion #44 mL torsemide 20 mg tablet 60 mg PO DAILY #90 tabs 09/25/22 clindamycin HCl 150 mg capsule 150 mg PO TID 7 days #21 caps 10/28/22 (Cleocin HCl) Allergies Allergy/AdvReac Type Severity Reaction Status Date / Time hydromorphone [From Dilaudid] Allergy Verified 11/03/22 15:58 General Stated Complaint: SOB GLADIS: 3 PFSH <SHERINE Marie - Last Filed: 11/04/22 08:31> All Active Problems (Updated 11/04/22 @ 08:31 by SHERINE Mraie) Acute non-ST elevation myocardial infarction (NSTEMI) (Acute) Hypercapnia (Acute) Acute hypokalemia (Acute) Fluid overload (Acute) Folliculitis (Acute) Erectile dysfunction (Acute) On medical terminologist drug therapy (Acute) Acute respiratory failure with hypoxia and hypercapnia (Acute) Acute on chronic combined systolic (congestive) and diastolic (congestive) heart failure (Acute) Sepsis (Acute) History of Brittany's gangrene (Acute) Obesity, morbid, BMI 40.0-49.9 (Acute) Obesity hypoventilation syndrome (Chronic) Left thigh pain (Acute) Acute respiratory failure with hypoxia (Acute) Multifocal pneumonia (Acute) Somnolence (Acute) Hypokalemia (Acute) Lactic acidosis (Acute) Thrombocytosis (Acute) Leukocytosis (Acute) CHF exacerbation (Acute) Respiratory failure with hypoxia and hypercapnia (Acute) Diastolic heart failure (Acute) Consolidation of left lower lobe of lung (Acute) Anxiety (Acute) Cellulitis of leg, left (Acute) Angina pectoris (Chronic) GERD (gastroesophageal reflux disease) (Chronic) Depression (Chronic) Morbid obesity (Chronic) AICD (automatic cardioverter/defibrillator) present (Acute) placed at [facility] for ischemic dilated cardiomyopathy [employer] Margaret MACDONALD 01/27/21 RH HLD (hyperlipidemia) (Acute) ETOH abuse (Chronic) Drug dependence (Chronic) COPD (chronic obstructive pulmonary disease) (Chronic) Acute on chronic heart failure with reduced ejection fraction and diastolic dysfunction (Acute) Ischemic cardiomyopathy (Chronic) Afib (Chronic) Tobacco use disorder (Acute) Hx of hyperlipidemia (Acute) HTN (hypertension) (Chronic) CAD (coronary artery disease) (Chronic) Medical History Alcohol use disorder, severe, dependence [facility] 01/21 Cardiac arrest CHF (congestive heart failure) Dental infection Exertional chest pain Homelessness Medication monitoring encounter Pacemaker Pulmonary nodules Surgical History History of coronary artery stent placement History of hernia repair History of right knee joint replacement History of tonsillectomy Social History Smoking/Tobacco Use Status: Current every day Tobacco Type: cigarettes and e- cigarettes Smoking risk assessment performed?: Yes Alcohol Intake: former Year quit: 2020 Details: Former heavy alcohol use. Drug use: Current Sobriety Substance use type: former substance user and prescription drug Housing: other Do you feel safe at home: Yes Do you feel safe in your relationship?: Yes Additional Social history: going through divorce, living in hotel Exam <SHERINE Marie - Last Filed: 11/04/22 08:31> Const General: in distress Nutritional Appearance: obese Orientation: alert Eyes Pupils: PERRL Resp Effort & Inspection: able to speak in complete sentences and tachypneic Cardio Rate: regular rate Rhythm: regular rhythm GI Other: non tender Skin General skin exam: no rashes or lesions noted Neuro General: patient alert and patient oriented x3 Extrem Other: 2+ pitting edema bilaterally, distal pulses intact, nontender Course <SHERINE Marie - Last Filed: 11/04/22 08:31> Vital Signs Vital signs: Vital Signs Temperature 36.3 C L 11/03/22 15:06 Pulse 84 11/03/22 15:06 Respiratory Rate 15 11/03/22 15:06 Blood Pressure 124/61 11/03/22 15:06 Pulse Oximetry 95 11/03/22 15:06 Temperature 36.3 C L 11/03/22 15:06 Temperature Source Tympanic 11/03/22 15:06 Pulse 75 11/03/22 17:31 Pulse 73 11/03/22 17:40 Respiratory Rate 15 11/03/22 17:40 Respiratory Effort Normal 11/03/22 15:12 Respiratory Depth Normal 11/03/22 15:12 Respiratory Pattern Normal 11/03/22 15:12 Blood Pressure 103/62 11/03/22 17:31 Blood Pressure Mean 71 11/03/22 17:31 Blood Pressure Position Supine 11/03/22 15:06 Pulse Oximetry 94 11/03/22 17:40 Oxygen Delivery Method Room Air 11/03/22 15:06 Oxygen Flow Rate 0 11/03/22 15:06 Pain Level 2 11/03/22 15:12 Lab/Test Results Lab/Test Results: Laboratory Tests Range/Units 11/03/22 11/03/22 11/03/22 15:30 15:30 15:30 WBC (4.4-10.8) 10^3/uL 11.97 H RBC (4.36-5.78) 10^6/uL 4.42 Hgb (13.5-17.5) g/dL 12.7 L Hct (40.0-50.0) % 40.3 MCV (80-95) fL 91 MCH (27.0-33.0) pg 28.7 MCHC (32.0-36.0) % 31.5 L RDW (11.8-14.1) % 15.9 H Plt Count (130-400) 10^3/uL 473 H MPV (8.0-11.0) fL 8.3 Immature Gran % 0.2 Neutrophils % 66.8 Lymphocytes % 20.8 Monocytes % 7.3 Eosinophils % 4.2 Basophils % 0.7 Nucleated RBC % (0.0-0.3) % 0.0 Absolute Neutrophils (1.2-6.7) 10^3/uL 8.00 H Absolute Lymphocytes (1.2-3.4) 10^3/uL 2.49 Absolute Monocytes (0.1-0.8) 10^3/uL 0.87 H Absolute Eosinophils (0.0-0.7) 10^3/uL 0.50 Absolute Basophils (0.0-0.2) 10^3/uL 0.08 D-Dimer (<500) ng/mlFEU 900 H VBG pH (7.31-7.41) VBG pCO2 (41-51) mmHg VBG pO2 mmHg VBG HCO3 (23-28) mmol/L VBG Total CO2 (24-29) mmol/L VBG O2 Saturation % VBG Base Excess (-2-3) mmol/L Sodium (136-145) mmol/L 136 Potassium (3.5-5.1) mmol/L 3.6 Chloride (98-107) mmol/L 95 L Carbon Dioxide (21.0-32.0) mmol/L 39.3 H Anion Gap (3-11) mmol/L 1.7 L BUN (7-18) mg/dL 8 Creatinine (0.70-1.30) mg/dL 1.1 Est GFR (CKD-EPI 2020) (mL/min/1.73m2) 79.77 Glucose (74-106) mg/dL 183 H Calcium (8.5-10.1) mg/dL 8.8 Magnesium (1.8-2.4) mg/dL 1.6 L Total Bilirubin (0.2-1.0) mg/dL 0.3 AST (15-37) U/L 30 ALT (16-63) U/L 20 Alkaline Phosphatase (46-116) U/L 102 Troponin I (<or=60) ng/L 1942 H* Total Protein (6.4-8.2) g/dL 7.9 Albumin (3.4-5.0) g/dL 3.4 TSH (0.36-3.74) uIU/mL 0.79 Urine Opiates Screen (Negative) Urine Methadone Screen (Negative) Ur Barbiturates Screen (Negative) Ur Tricyclics Screen (Negative) Ur Amphetamines Screen (Negative) U Benzodiazepines Scrn (Negative) Urine Cocaine Screen (Negative) Ur THC Screen (Negative) Range/Units 11/03/22 11/03/22 11/03/22 15:50 17:40 17:40 WBC (4.4-10.8) 10^3/uL RBC (4.36-5.78) 10^6/uL Hgb (13.5-17.5) g/dL Hct (40.0-50.0) % MCV (80-95) fL MCH (27.0-33.0) pg MCHC (32.0-36.0) % RDW (11.8-14.1) % Plt Count (130-400) 10^3/uL MPV (8.0-11.0) fL Immature Gran % Neutrophils % Lymphocytes % Monocytes % Eosinophils % Basophils % Nucleated RBC % (0.0-0.3) % Absolute Neutrophils (1.2-6.7) 10^3/uL Absolute Lymphocytes (1.2-3.4) 10^3/uL Absolute Monocytes (0.1-0.8) 10^3/uL Absolute Eosinophils (0.0-0.7) 10^3/uL Absolute Basophils (0.0-0.2) 10^3/uL D-Dimer (<500) ng/mlFEU VBG pH (7.31-7.41) 7.34 VBG pCO2 (41-51) mmHg 74 H* VBG pO2 mmHg 44 VBG HCO3 (23-28) mmol/L 40 H VBG Total CO2 (24-29) mmol/L 37 H VBG O2 Saturation % 84 VBG Base Excess (-2-3) mmol/L 14 H Sodium (136-145) mmol/L Potassium (3.5-5.1) mmol/L Chloride (98-107) mmol/L Carbon Dioxide (21.0-32.0) mmol/L Anion Gap (3-11) mmol/L BUN (7-18) mg/dL Creatinine (0.70-1.30) mg/dL Est GFR (CKD-EPI 2020) (mL/min/1.73m2) Glucose (74-106) mg/dL Calcium (8.5-10.1) mg/dL Magnesium (1.8-2.4) mg/dL Total Bilirubin (0.2-1.0) mg/dL AST (15-37) U/L ALT (16-63) U/L Alkaline Phosphatase (46-116) U/L Troponin I (<or=60) ng/L 2290 H* Total Protein (6.4-8.2) g/dL Albumin (3.4-5.0) g/dL TSH (0.36-3.74) uIU/mL Urine Opiates Screen (Negative) Negative Urine Methadone Screen (Negative) Negative Ur Barbiturates Screen (Negative) Negative Ur Tricyclics Screen (Negative) Negative Ur Amphetamines Screen (Negative) Negative U Benzodiazepines Scrn (Negative) Negative Urine Cocaine Screen (Negative) Negative Ur THC Screen (Negative) Negative Range/Units 11/03/22 18:32 WBC (4.4-10.8) 10^3/uL RBC (4.36-5.78) 10^6/uL Hgb (13.5-17.5) g/dL Hct (40.0-50.0) % MCV (80-95) fL MCH (27.0-33.0) pg MCHC (32.0-36.0) % RDW (11.8-14.1) % Plt Count (130-400) 10^3/uL MPV (8.0-11.0) fL Immature Gran % Neutrophils % Lymphocytes % Monocytes % Eosinophils % Basophils % Nucleated RBC % (0.0-0.3) % Absolute Neutrophils (1.2-6.7) 10^3/uL Absolute Lymphocytes (1.2-3.4) 10^3/uL Absolute Monocytes (0.1-0.8) 10^3/uL Absolute Eosinophils (0.0-0.7) 10^3/uL Absolute Basophils (0.0-0.2) 10^3/uL D-Dimer (<500) ng/mlFEU VBG pH (7.31-7.41) VBG pCO2 (41-51) mmHg VBG pO2 mmHg VBG HCO3 (23-28) mmol/L VBG Total CO2 (24-29) mmol/L VBG O2 Saturation % VBG Base Excess (-2-3) mmol/L Sodium (136-145) mmol/L Potassium (3.5-5.1) mmol/L Chloride (98-107) mmol/L Carbon Dioxide (21.0-32.0) mmol/L Anion Gap (3-11) mmol/L BUN (7-18) mg/dL Creatinine (0.70-1.30) mg/dL Est GFR (CKD-EPI 2020) (mL/min/1.73m2) Glucose (74-106) mg/dL Calcium (8.5-10.1) mg/dL Magnesium (1.8-2.4) mg/dL Total Bilirubin (0.2-1.0) mg/dL AST (15-37) U/L ALT (16-63) U/L Alkaline Phosphatase (46-116) U/L Troponin I (<or=60) ng/L Cancelled Total Protein (6.4-8.2) g/dL Albumin (3.4-5.0) g/dL TSH (0.36-3.74) uIU/mL Urine Opiates Screen (Negative) Urine Methadone Screen (Negative) Ur Barbiturates Screen (Negative) Ur Tricyclics Screen (Negative) Ur Amphetamines Screen (Negative) U Benzodiazepines Scrn (Negative) Urine Cocaine Screen (Negative) Ur THC Screen (Negative) Critical Care Time <SHERINE Marie - Last Filed: 11/04/22 08:31> Critical Care Time Critical Care Time: Yes Attestation: I spent greater than [60] minutes addressing this patient's immediate life threats. Please see MDM section of note. This time was spent engaged in work directly related to the patient's care, exclusive of separate procedures, and failure to initiate these interventions would have likely resulted in clinically significant or life threatening deterioration in the patient's condition. <Gino Dodd MD - Last Filed: 11/04/22 13:03> Critical Care Time Attestation: I spent greater than [] minutes addressing this patient's immediate life threats. Please see MDM section of note. This time was spent engaged in work directly related to the patient's care, exclusive of separate procedures, and failure to initiate these interventions would have likely resulted in clinically significant or life threatening deterioration in the patient's condition.
[2022-11-03] MEDS: LORazepam 2 MG/ML VIAL 0.5 MG IVP (19:08)
== END 2022-11-03 19:41 | disposition short-term general hospital (02) ==
PROVIDERS: Emergency Provider Physician Assistant; PCP Nurse Practitioner Family
DX: I21.4 Non-ST elevation (NSTEMI) myocardial infarction (principal); E66.01 Morbid (severe) obesity due to excess calories; J44.9 Chronic obstructive pulmonary disease, unspecified; F19.20 Other psychoactive substance dependence, uncomplicated; Z86.39 Personal history of other endocrine, nutritional and metabolic disease
CPT/HCPCS: 71275; 80053; 80307; 82805; 87426; 93005; 96365; 96368; 96375; 99291; 83735; 84443; 84484; 85025; 85379; 93010; J2060; J3475; J3490; J7620

== ENCOUNTER 2022-12-14 12:25 | Outpatient (REF) | payer MEDICAID, SELFPAY ==
[2022-12-14 14:02] LABS: Abs Immature Grans 0.02 10^3/uL (0.0-0.06); Absolute Basophil Count 0.11 10^3/uL (0.0-0.2); Absolute Eosinophil Count 0.56 10^3/uL (0.0-0.7); Absolute Lymphocyte Count 2.96 10^3/uL (1.2-3.4); Absolute Monocyte Count 0.82 10^3/uL (0.1-0.8); Absolute Neutrophil Count 4.49 10^3/uL (1.2-6.7); Basophils % 1.2; Eosinophils % 6.3; HCT 38.7 % (40.0-50.0); HGB 12.6 g/dL (13.5-17.5); Immature Grans % 0.2; MCH 29.4 pg (27.0-33.0); MCHC 32.6 % (32.0-36.0); MCV 90 fL (80-95); MPV 8.9 fL (8.0-11.0); Monocytes % 9.2; Neutrophils % 50.1; Platelet Count 430 10^3/uL (130-400); RBC 4.28 10^6/uL (4.36-5.78); RDW 15.2 % (11.8-14.1); RDW-SD 50.4 fL; WBC 8.96 10^3/uL (4.4-10.8)
[2022-12-14 14:12] LABS: ALT 16 U/L (16-63); AST 17 U/L (15-37); Albumin 3.4 g/dL (3.4-5.0); Alkaline Phosphatase 106 U/L (46-116); Anion Gap 1.9 mmol/L (3-11); BUN 9 mg/dL (7-18); Bilirubin, Total 0.4 mg/dL (0.2-1.0); CO2 38.1 mmol/L (21.0-32.0); Calcium 9.5 mg/dL (8.5-10.1); Chloride 92 mmol/L (98-107); Estimated GFR 89.44 (mL/min/1.73m2); Glucose 102 mg/dL (74-106); Potassium 4.4 mmol/L (3.5-5.1); Sodium 132 mmol/L (136-145); Total Protein 7.5 g/dL (6.4-8.2)
== END 2022-12-14 12:26 | disposition home or self-care (01) ==
LOC: NCHCN 12:25
PROVIDERS: PCP Nurse Practitioner Family; Visit Provider Nurse Practitioner Family
DX: E83.42 Hypomagnesemia (principal); I50.9 Heart failure, unspecified; D47.3 Essential (hemorrhagic) thrombocythemia
CPT/HCPCS: 80053; 83735; 85025

== ENCOUNTER 2023-01-06 08:00 | Emergency (ER) | payer MEDICAID, SELFPAY ==
--- NOTE | 2023-01-06 08:00 | RT.EKG_ITS ---
APPROVED REPORT Exam: Resting ECG Reason for Exam: sob Patient Location: E HR:60 bpm ECG Measurements Heart Rate 60 AXIS FL 170 P 67 QRSd 116 QRS 45 QT 481 T 70 QTc 480 Conclusion Sinus rhythm...normal P axis, V-rate 60- 99 Nonspecific intraventricular conduction delay...QRSd >115mS, not LBBB/RBBB Probable inferior infarct, old...Q>35mS, II III aVF
[2023-01-06 08:03] VITALS: BP 143/73; PULSE 63; RESP 11; TEMP 36.5; O2SAT 99
[2023-01-06 08:17] VITALS: RESP 20
--- NOTE | 2023-01-06 08:18 | W.ED.GENAD ---
Discharge Plan Disposition Patient Disposition: Home Discharge Details Clinical Impression: Shortness of breath Primary Care Provider: Gerri Silverman ED Provider: Gino Dodd Home Meds and New Rx's Prescriptions: Continued nitroglycerin 0.4 mg tablet, sublingual 0.4 mg sublingual Q5-15M PRN (Reason: chest pain) Qty: 90 3RF Rx Instructions: do not exceed 3 doses per episode folic acid 1 mg tablet 1,000 mcg PO DAILY Patient Comments: 10/07/22 per PCP prescribed as 1 mg daily RH azithromycin 250 mg tablet 250 mg PO DAILY Qty: 30 12RF Eliquis 5 mg tablet 5 mg PO BID potassium chloride [Klor-Con M20] 20 mEq tablet,ER particles/crystals 20 meq PO DAILY gabapentin 100 mg capsule 400 mg PO QID buspirone 15 mg tablet 15 mg PO BID losartan 25 mg tablet 25 mg PO DAILY Trelegy Ellipta 100-62.5-25 mcg blister with device 1 inh inhalation DAILY Patient Comments: 12/22/22 this is on med list from PCP office, not sure about dosing RH amiodarone 100 mg tablet 100 mg PO DAILY Patient Comments: 08/05/[address] More on 07/01/22, PCP office noticed change RH acetaminophen 500 mg capsule 1,000 mg PO Q6H PRN spironolactone 25 mg tablet 25 mg PO DAILY Super Multiple Tablet 1 tab PO DAILY melatonin 10 mg capsule 10 mg PO HS PRN trazodone 50 mg tablet 50 mg PO QHS PRN (DME) Oxygen Tank See Rx Instructions .Route Rx Instructions: 2-3L as needed buprenorphine-naloxone 2-0.5 mg film 2 film buccal DAILY Patient Comments: 11/03/22 - patient states he is on 20mg now. Goes through [facility] 10/12/22 updated from pcp list jwo Rx Instructions: place 2 strip/tab under (each) side of tongue Stiolto Respimat 2.5-2.5 mcg/actuation mist 2 puff inhalation DAILY Qty: 4 12RF citalopram 20 mg Tablet 20 mg PO DAILY albuterol sulfate 90 mcg/actuation aerosol powdr breath activated 2 inh inhalation Q4H PRNQty: 1 0RF nicotine 21 mg/24 hr Patch 24 Hour 21 mg transdermal DAILY Qty: 30 0RF ipratropium-albuterol 0.5 mg-3 mg(2.5 mg base)/3 mL Solution For Nebulization 3 ml UPD Q6H PRN PRN (Reason: wheezing) Qty: 180 0RF Deep Sea Nasal 0.65 % Aerosol,Sartell 2 spray NS QID PRN PRN (Reason: nasal congestion) Qty: 44 0RF torsemide 20 mg tablet 60 mg PO DAILY Qty: 90 3RF isosorbide mononitrate 30 mg Tablet Extended Release 24 Hr 30 mg PO DAILY aspirin 81 mg Tablet,Delayed Release (Dr/Ec) 81 mg PO DAILY ranolazine 500 mg Tablet Extended Release 12 Hr 500 mg PO BID atorvastatin 80 mg tablet 80 mg PO DAILY Qty: 30 0RF pantoprazole [Protonix] 40 mg tablet,delayed release (DR/EC) 40 mg PO DAILY Qty: 30 0RF Discharge Instructions Instructions: Dyspnea (ED), Anxiety (ED) Additional Instructions: Please contact your primary care physician to arrange follow-up. Please be sure to ask your PCP to update medication list. Return to the ER immediately for any worsening or new concerning symptoms. Referrals: Gerri Silverman [Primary Care Provider] - Medical Decision Making 820?52-year-old male with multiple medical problems including pulmonary hypertension, COPD, obesity, diastolic heart failure, smoker, atrial fibrillation on anticoagulant, ischemic cardiomyopathy, AICD, and anxiety, here with shortness of breath this morning and anxiety. Considered ACS. EKG was reviewed and interpreted by me: Sinus rhythm 60 bpm, nonspecific intraventricular conduction delay, probable old infarct. Please see report. Patient declining further diagnostic work-up at this time. He notes symptoms dramatically improving and feels this is likely his anxiety. He is requesting Ativan. He is prescribed Ativan 1 mg orally for anxiety. I will provide this dose and plan to reassess. Patient provided informed refusal of further diagnostic work-up at this time. 900 --patient reassessed and continues to feel well. No symptoms. Requesting discharge. Continues to refuse further diagnostic work-up. Plan for outpatient follow-up with PCP. HPI General Mode of arrival: ambulatory. Date/Time Provider Initiated Documentation: 01/06/23 08:08. Limitations to Documentation: no limitations. Information obtained by: patient. HPI Narrative: 52-year-old male with multiple medical problems including history of diastolic heart failure, AICD, coronary artery disease, obesity hypoventilation syndrome, COPD, pulmonary hypertension,, tobacco use disorder, atrial fibrillation, on anticoagulation, presents today with chief complaint of shortness of breath. Patient notes this morning he woke up feeling short of breath and anxious. Symptoms persisted to about 10 minutes prior to my assessment. Patient notes symptoms now improving dramatically. He has no associated chest pain. No leg swelling or calf pain. No other symptoms. Patient is concerned that this is that his anxiety. He is requesting anxiolytic. Related Data Home Medications Medication Instructions Recorded Confirmed aspirin 81 mg tablet,delayed 81 mg PO DAILY 01/06/22 01/06/23 release atorvastatin 80 mg tablet 80 mg PO DAILY #30 tabs 01/06/22 01/06/23 isosorbide mononitrate 30 mg 30 mg PO DAILY 01/06/22 01/06/23 tablet,extended release 24 hr pantoprazole 40 mg tablet,delayed 40 mg PO DAILY #30 tabs 01/06/22 01/06/23 release (Protonix) ranolazine 500 mg tablet,extended 500 mg PO BID 01/06/22 01/06/23 release,12 hr citalopram 20 mg tablet 20 mg PO DAILY 06/14/22 01/06/23 albuterol sulfate 90 mcg/actuation 2 inh inhalation Q4H PRN #1 ea 06/17/22 01/06/23 breath activated powder inhaler nitroglycerin 0.4 mg sublingual 0.4 mg sublingual Q5-15M PRN chest 07/03/22 01/06/23 tablet pain #90 tabs amiodarone 100 mg tablet 100 mg PO DAILY 08/05/22 01/06/23 ipratropium 0.5 mg-albuterol 3 mg 3 ml UPD Q6H PRN PRN wheezing #180 09/25/22 01/06/23 (2.5 mg base)/3 mL nebulization mL soln nicotine 21 mg/24 hr daily 21 mg transdermal DAILY #30 ea 09/25/22 01/06/23 transdermal patch sodium chloride 0.65 % nasal spray 2 spray NS QID PRN PRN nasal 09/25/22 01/06/23 aerosol (Deep Sea Nasal) congestion #44 mL torsemide 20 mg tablet 60 mg PO DAILY #90 tabs 09/25/22 01/06/23 Oxygen 10/05/22 01/06/23 acetaminophen 500 mg capsule 1,000 mg PO Q6H PRN 10/05/22 01/06/23 melatonin 10 mg capsule 10 mg PO HS PRN 10/05/22 01/06/23 multivitamin with iron-mineral 1 tab PO DAILY 10/05/22 01/06/23 (Super Multiple tablet) spironolactone 25 mg tablet 25 mg PO DAILY 10/05/22 01/06/23 trazodone 50 mg tablet 50 mg PO QHS PRN 10/05/22 01/06/23 folic acid 1 mg tablet 1,000 mcg PO DAILY 10/08/22 01/06/23 buprenorphine 2 mg-naloxone 0.5 mg 2 film buccal DAILY 11/19/22 01/06/23 sublingual film tiotropium 2.5 mcg-olodaterol 2.5 2 puff inhalation DAILY #4 grams 12/17/22 01/06/23 mcg/actuation mist for inhalation (Stiolto Respimat) azithromycin 250 mg tablet 250 mg PO DAILY #30 tabs 12/18/22 01/06/23 apixaban 5 mg tablet (Eliquis) 5 mg PO BID 12/22/22 01/06/23 buspirone 15 mg tablet 15 mg PO BID 12/22/22 01/06/23 fluticasone fur. 100 mcg-umeclid 1 inh inhalation DAILY 12/22/22 01/06/23 62.5 mcg-vilant 25 mcg inhalat.powder (Trelegy Ellipta) gabapentin 100 mg capsule 400 mg PO QID 12/22/22 01/06/23 losartan 25 mg tablet 25 mg PO DAILY 12/22/22 01/06/23 potassium chloride 20 mEq 20 meq PO DAILY 12/22/22 01/06/23 tablet,extended release(part/cryst) (Klor-Con M) Previous Rx's Medication Instructions Recorded atorvastatin 80 mg tablet 80 mg PO DAILY #30 tabs 01/06/22 pantoprazole 40 mg tablet,delayed 40 mg PO DAILY #30 tabs 01/06/22 release (Protonix) albuterol sulfate 90 mcg/actuation 2 inh inhalation Q4H PRN #1 ea 06/17/22 breath activated powder inhaler nitroglycerin 0.4 mg sublingual 0.4 mg sublingual Q5-15M PRN chest 07/03/22 tablet pain #90 tabs ipratropium 0.5 mg-albuterol 3 mg 3 ml UPD Q6H PRN PRN wheezing #180 09/25/22 (2.5 mg base)/3 mL nebulization mL soln nicotine 21 mg/24 hr daily 21 mg transdermal DAILY #30 ea 09/25/22 transdermal patch sodium chloride 0.65 % nasal spray 2 spray NS QID PRN PRN nasal 09/25/22 aerosol (Deep Sea Nasal) congestion #44 mL torsemide 20 mg tablet 60 mg PO DAILY #90 tabs 09/25/22 tiotropium 2.5 mcg-olodaterol 2.5 2 puff inhalation DAILY #4 grams 12/17/22 mcg/actuation mist for inhalation (Stiolto Respimat) azithromycin 250 mg tablet 250 mg PO DAILY #30 tabs 12/18/22 Allergies Allergy/AdvReac Type Severity Reaction Status Date / Time hydromorphone [From Dilaudid] Allergy Verified 01/06/23 08:19 General Stated Complaint: SOB/SuddenOnset GLADIS: 2 Review of Systems All systems reviewed & are unremarkable except as noted in HPI and below Constitutional Constitutional: Denies fever(s) Cardiovascular Cardiovascular: Denies chest pain Respiratory Respiratory: Reports as per HPI PFSH All Active Problems (Updated 01/06/23 @ 08:59 by Gino Dodd MD) Shortness of breath (Acute) Pulmonary hypertension (Acute) Erectile dysfunction (Acute) 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 (Acute) History of Brittany's gangrene (Acute) Obesity, morbid, BMI 40.0-49.9 (Acute) Obesity hypoventilation syndrome (Chronic) Respiratory failure with hypoxia and hypercapnia (Acute) Diastolic heart failure (Acute) Anxiety (Acute) Cellulitis of leg, left (Acute) Angina pectoris (Chronic) GERD (gastroesophageal reflux disease) (Chronic) Depression (Chronic) Morbid obesity (Chronic) AICD (automatic cardioverter/defibrillator) present (Acute) placed at [facility] for ischemic dilated cardiomyopathy Sruthi Robles DR 01/27/21 HLD (hyperlipidemia) (Acute) ETOH abuse (Chronic) Drug dependence (Chronic) COPD (chronic obstructive pulmonary disease) (Chronic) Ischemic cardiomyopathy (Chronic) Afib (Chronic) Tobacco use disorder (Acute) Hx of hyperlipidemia (Acute) HTN (hypertension) (Chronic) CAD (coronary artery disease) (Chronic) Medical History Acute hypokalemia Acute non-ST elevation myocardial infarction (NSTEMI) Acute on chronic combined systolic (congestive) and diastolic (congestive) heart failure Acute on chronic heart failure with reduced ejection fraction and diastolic dysfunction Acute respiratory failure with hypoxia Acute respiratory failure with hypoxia and hypercapnia Alcohol use disorder, severe, dependence [facility] 01/21 Cardiac arrest CHF (congestive heart failure) CHF exacerbation Consolidation of left lower lobe of lung Dental infection Exertional chest pain Fluid overload Folliculitis Homelessness Hypercapnia Hypokalemia Lactic acidosis Left thigh pain Leukocytosis Medication monitoring encounter Multifocal pneumonia Pacemaker Pulmonary nodules Sepsis Somnolence Thrombocytosis Surgical History History of coronary artery stent placement History of hernia repair History of right knee joint replacement History of tonsillectomy Social History Smoking/Tobacco Use Status: Current every day Tobacco Type: cigarettes and e-cigarettes Smoking risk assessment performed?: Yes Alcohol Intake: former Year quit: 2020 Details: Former heavy alcohol use. Drug use: Current Sobriety Substance use type: former substance user and prescription drug Housing: other Do you feel safe at home: Yes Do you feel safe in your relationship?: Yes Additional Social history: going through divorce, living in hotel Exam Const General: cooperative and no acute distress HENMT Mouth: moist mucous membranes Eyes Conjunctivae: normal conjunctivae Sclera: normal sclerae Neck Neck: trachea midline and supple Resp Auscultation: clear to auscultation bilaterally, no rales, no rhonchi and no wheezes Cardio Jugular venous pressure: no JVD Rate: regular rate and not tachycardic Rhythm: regular rhythm GI Palpation: soft, not firm, no guarding, no masses, not rigid and nontender Skin General skin exam: no rashes or lesions noted Neuro General: patient alert, patient awake, patient oriented x3 and tone normal Extrem General: no calf tenderness and no edema Psych Appearance: grossly normal Mental Status: mental status grossly normal Speech and Movement: speech and movement normal Course Vital Signs Vital signs: Vital Signs Temperature 36.5 C 01/06/23 08:03 Pulse 63 01/06/23 08:03 Respiratory Rate 11 L 01/06/23 08:03 Blood Pressure 143/73 H 01/06/23 08:03 Pulse Oximetry 99 01/06/23 08:03 Temperature 36.5 C 01/06/23 08:03 Pulse 63 01/06/23 08:03 Respiratory Rate 11 L 01/06/23 08:03 Blood Pressure 143/73 H 01/06/23 08:03 Pulse Oximetry 99 01/06/23 08:03 Oxygen Delivery Method Room Air 01/06/23 08:03 Oxygen Flow Rate 0 01/06/23 08:03 Pain Level 0 01/06/23 08:03
[2023-01-06] MEDS: LORazepam 1 MG TAB PO (08:22)
[2023-01-06 09:31] VITALS: BP 130/71; PULSE 71; RESP 14; TEMP 36.4; O2SAT 93
== END 2023-01-06 09:33 | disposition home or self-care (01) ==
PROVIDERS: Emergency Provider Student in an Organized Health Care Education/Training Program; PCP Nurse Practitioner Family
DX: R06.09 Other forms of dyspnea (principal); J44.9 Chronic obstructive pulmonary disease, unspecified; F41.9 Anxiety disorder, unspecified; I27.20 Pulmonary hypertension, unspecified; R94.31 Abnormal electrocardiogram [ECG] [EKG]; I11.0 Hypertensive heart disease with heart failure; I50.32 Chronic diastolic (congestive) heart failure; I25.10 Atherosclerotic heart disease of native coronary artery without angina pectoris; I25.2 Old myocardial infarction; F17.210 Nicotine dependence, cigarettes, uncomplicated; F17.290 Nicotine dependence, other tobacco product, uncomplicated; Z79.01 Long term (current) use of anticoagulants; Z95.810 Presence of automatic (implantable) cardiac defibrillator; Z79.82 Long term (current) use of aspirin; Z79.899 Other long term (current) drug therapy
CPT/HCPCS: 93005; 99283; 93010

== ENCOUNTER 2023-01-19 06:28 | Emergency (ER) | payer MEDICAID, SELFPAY ==
--- NOTE | 2023-01-19 06:30 | RT.EKG_ITS ---
APPROVED REPORT Exam: Resting ECG Reason for Exam: anxiety, SOB Patient Location: E HR:70 bpm ECG Measurements Heart Rate 70 AXIS SD 167 P 52 QRSd 102 QRS 17 QT 420 T 76 QTc 454 Conclusion Sinus rhythm...normal P axis, V-rate 60- 99 Inferior infarct, old...Q >35mS, II III aVF no major change vs 01/06/23 except ERWP
[2023-01-19 06:31] VITALS: BP 144/87; PULSE 82; RESP 20; TEMP 36.8; O2SAT 97
--- NOTE | 2023-01-19 06:41 | W.ED.GENAD ---
Discharge Plan Disposition Patient Disposition: Psychiatric Hospital/Unit Specific Psychiatric Facility: [facility] Condition: Stable Discharge Details Clinical Impression: Anxiety, Dental infection Primary Care Provider: Gerri Silverman ED Provider: Brittany Caro Home Meds and New Rx's Prescriptions: New amoxicillin-pot clavulanate 875-125 mg tablet 1 tab PO BID Qty: 14 0RF Continued nitroglycerin 0.4 mg tablet, sublingual 0.4 mg sublingual Q5-15M PRN (Reason: chest pain) Qty: 90 3RF Rx Instructions: do not exceed 3 doses per episode folic acid 1 mg tablet 1,000 mcg PO DAILY Patient Comments: 10/07/22 per PCP prescribed as 1 mg daily RH azithromycin 250 mg tablet 250 mg PO DAILY Qty: 30 12RF Eliquis 5 mg tablet 5 mg PO BID potassium chloride [Klor-Con M20] 20 mEq tablet,ER particles/crystals 20 meq PO DAILY gabapentin 100 mg capsule 400 mg PO QID buspirone 15 mg tablet 15 mg PO BID losartan 25 mg tablet 25 mg PO DAILY Trelegy Ellipta 100-62.5-25 mcg blister with device 1 inh inhalation DAILY Patient Comments: 12/22/22 this is on med list from PCP office, not sure about dosing RH acetaminophen 500 mg capsule 1,000 mg PO Q6H PRN spironolactone 25 mg tablet 25 mg PO DAILY Super Multiple Tablet 1 tab PO DAILY melatonin 10 mg capsule 10 mg PO HS PRN trazodone 50 mg tablet 50 mg PO QHS PRN (DME) Oxygen Tank See Rx Instructions .Route Rx Instructions: 2-3L as needed Stiolto Respimat 2.5-2.5 mcg/actuation mist 2 puff inhalation DAILY Qty: 4 12RF citalopram 20 mg Tablet 20 mg PO DAILY albuterol sulfate 90 mcg/actuation aerosol powdr breath activated 2 inh inhalation Q4H PRNQty: 1 0RF nicotine 21 mg/24 hr Patch 24 Hour 21 mg transdermal DAILY Qty: 30 0RF ipratropium-albuterol 0.5 mg-3 mg(2.5 mg base)/3 mL Solution For Nebulization 3 ml UPD Q6H PRN PRN (Reason: wheezing) Qty: 180 0RF Deep Sea Nasal 0.65 % Aerosol,[place] 2 spray NS QID PRN PRN (Reason: nasal congestion) Qty: 44 0RF torsemide 20 mg tablet 60 mg PO DAILY Qty: 90 3RF isosorbide mononitrate 30 mg Tablet Extended Release 24 Hr 30 mg PO DAILY aspirin 81 mg Tablet,Delayed Release (Dr/Ec) 81 mg PO DAILY ranolazine 500 mg Tablet Extended Release 12 Hr 500 mg PO BID atorvastatin 80 mg tablet 80 mg PO DAILY Qty: 30 0RF pantoprazole [Protonix] 40 mg tablet,delayed release (DR/EC) 40 mg PO DAILY Qty: 30 0RF No Action amiodarone 100 mg tablet 100 mg PO DAILY Patient Comments: 08/05/[address] More on 07/01/22, PCP office noticed change RH buprenorphine-naloxone 8-2 mg Film 1 film BUCCAL DAILY buprenorphine-naloxone 12-3 mg Film 1 film BUCCAL DAILY Discharge Instructions Instructions: Anxiety (ED) Additional Instructions: follow up with your psychiatry provider and primary care provider if you feel more ill, have worsening thoughts of self harm return to the emergency department Discharge Data Discharge Date/Time-TO BE ENTERED AT DEPARTURE: 01/20/23 17:25 Medical Decision Making Pt. tells me that he has had thoughts of nhurting himself and would like to talk to crisis. He thinks that voluntary psych admission may be helpful. Lab Data Lab results reviewed: Yes I reviewed the patient's lab results. ECG Data Attestation: I personally reviewed and interpreted this ECG (s) as follows: (NSR 68, old IWMI, ERWP, no major change vs 01/06/23) HPI General Date/Time Provider Initiated Documentation: 01/19/23 06:30. HPI Narrative: This 52-year-old male patient presents with a chief complaint of escalating anxiety. 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 Patient also has a history of depression and anxiety. He reports to me that he takes Ativan 1 mg twice daily as needed. He only gets 22 days worth in 30 days. States that he has been out of the Ativan the past 3 days and has been taking it daily. He tells me that his anxiety has been escalating for the past month. He was seen in the 2 weeks ago for anxiety. He says he is having thoughts of hurting himself because he does not want to live like this. He says he did try to hurt himself via cutting some time ago. States that anxiety makes him feel very short of breath. Sometimes gets chest pain with it although has not had any recently. He says he has been obsessing about things and ruminating all the time. Pt. also reports a tender fractured molar lower R side. He put a temporary filling in it but has not been to the dentist. Related Data Home Medications Medication Instructions Recorded Confirmed aspirin 81 mg tablet,delayed 81 mg PO DAILY 01/06/22 01/19/23 release atorvastatin 80 mg tablet 80 mg PO DAILY #30 tabs 01/06/22 01/19/23 isosorbide mononitrate 30 mg 30 mg PO DAILY 01/06/22 01/19/23 tablet,extended release 24 hr pantoprazole 40 mg tablet,delayed 40 mg PO DAILY #30 tabs 01/06/22 01/19/23 release (Protonix) ranolazine 500 mg tablet,extended 500 mg PO BID 01/06/22 01/19/23 release,12 hr citalopram 20 mg tablet 20 mg PO DAILY 06/14/22 01/19/23 albuterol sulfate 90 mcg/actuation 2 inh inhalation Q4H PRN #1 ea 06/17/22 01/19/23 breath activated powder inhaler nitroglycerin 0.4 mg sublingual 0.4 mg sublingual Q5-15M PRN chest 07/03/22 01/19/23 tablet pain #90 tabs amiodarone 100 mg tablet 100 mg PO DAILY 08/05/22 01/19/23 ipratropium 0.5 mg-albuterol 3 mg 3 ml UPD Q6H PRN PRN wheezing #180 09/25/22 01/19/23 (2.5 mg base)/3 mL nebulization mL soln nicotine 21 mg/24 hr daily 21 mg transdermal DAILY #30 ea 09/25/22 01/19/23 transdermal patch sodium chloride 0.65 % nasal spray 2 spray NS QID PRN PRN nasal 09/25/22 01/19/23 aerosol (Deep Sea Nasal) congestion #44 mL torsemide 20 mg tablet 60 mg PO DAILY #90 tabs 09/25/22 01/19/23 Oxygen 10/05/22 01/06/23 acetaminophen 500 mg capsule 1,000 mg PO Q6H PRN 10/05/22 01/19/23 melatonin 10 mg capsule 10 mg PO HS PRN 10/05/22 01/19/23 multivitamin with iron-mineral 1 tab PO DAILY 10/05/22 01/19/23 (Super Multiple tablet) spironolactone 25 mg tablet 25 mg PO DAILY 10/05/22 01/19/23 trazodone 50 mg tablet 50 mg PO QHS PRN 10/05/22 01/06/23 folic acid 1 mg tablet 1,000 mcg PO DAILY 10/08/22 01/19/23 tiotropium 2.5 mcg-olodaterol 2.5 2 puff inhalation DAILY #4 grams 12/17/22 01/19/23 mcg/actuation mist for inhalation (Stiolto Respimat) azithromycin 250 mg tablet 250 mg PO DAILY #30 tabs 12/18/22 01/19/23 apixaban 5 mg tablet (Eliquis) 5 mg PO BID 12/22/22 01/19/23 buspirone 15 mg tablet 15 mg PO BID 12/22/22 01/19/23 fluticasone fur. 100 mcg-umeclid 1 inh inhalation DAILY 12/22/22 01/19/23 62.5 mcg-vilant 25 mcg inhalat.powder (Trelegy Ellipta) gabapentin 100 mg capsule 400 mg PO QID 12/22/22 01/19/23 losartan 25 mg tablet 25 mg PO DAILY 12/22/22 01/19/23 potassium chloride 20 mEq 20 meq PO DAILY 12/22/22 01/19/23 tablet,extended release(part/cryst) (Klor-Con M) amoxicillin 875 mg-potassium 1 tab PO BID #14 tabs 01/19/23 clavulanate 125 mg tablet buprenorphine 12 mg-naloxone 3 mg 1 film buccal DAILY 01/20/23 01/20/23 sublingual film buprenorphine 8 mg-naloxone 2 mg 1 film buccal DAILY 01/20/23 01/20/23 sublingual film Previous Rx's Medication Instructions Recorded atorvastatin 80 mg tablet 80 mg PO DAILY #30 tabs 01/06/22 pantoprazole 40 mg tablet,delayed 40 mg PO DAILY #30 tabs 01/06/22 release (Protonix) albuterol sulfate 90 mcg/actuation 2 inh inhalation Q4H PRN #1 ea 06/17/22 breath activated powder inhaler nitroglycerin 0.4 mg sublingual 0.4 mg sublingual Q5-15M PRN chest 07/03/22 tablet pain #90 tabs ipratropium 0.5 mg-albuterol 3 mg 3 ml UPD Q6H PRN PRN wheezing #180 09/25/22 (2.5 mg base)/3 mL nebulization mL soln nicotine 21 mg/24 hr daily 21 mg transdermal DAILY #30 ea 09/25/22 transdermal patch sodium chloride 0.65 % nasal spray 2 spray NS QID PRN PRN nasal 09/25/22 aerosol ([place] Nasal) congestion #44 mL torsemide 20 mg tablet 60 mg PO DAILY #90 tabs 09/25/22 tiotropium 2.5 mcg-olodaterol 2.5 2 puff inhalation DAILY #4 grams 12/17/22 mcg/actuation mist for inhalation (Stiolto Respimat) azithromycin 250 mg tablet 250 mg PO DAILY #30 tabs 12/18/22 amoxicillin 875 mg-potassium 1 tab PO BID #14 tabs 01/19/23 clavulanate 125 mg tablet Allergies Allergy/AdvReac Type Severity Reaction Status Date / Time hydromorphone [From Dilaudid] Allergy Verified 01/19/23 07:01 General Stated Complaint: Anxiety GLADIS: 2 Review of Systems Constitutional Constitutional: Reports chills (gets hot and cold chills when he is anxious; no rigors), Denies fever(s), Denies headache(s) and Denies weakness Eyes Eyes: Denies diplopia and Reports other (no redness) ENT Ears, Nose, Mouth, and Throat: Denies otalgia, Denies headache(s), Denies nasal congestion, Denies nasal discharge, Denies neck pain and Denies sore throat Cardiovascular Cardiovascular: Denies chest pain, Denies palpitations and Reports dyspnea (When he is anxious) Respiratory Respiratory: Denies cough and Reports dyspnea (When he is anxious) Gastrointestinal Gastrointestinal: Denies abdominal pain, Denies diarrhea, Denies nausea and Denies vomiting Genitourinary Genitourinary: Denies difficulty urinating and Denies dysuria Musculoskeletal Musculoskeletal: Denies myalgias, Denies muscle weakness, Denies neck pain, Denies numbness and Reports other (edema) Integumentary/Breasts Skin/Breast: Denies change in pigmentation and Denies rash Neurologic Neurologic: Denies headache(s), Denies numbness and Denies weakness Psychiatric Psychiatric: Reports anxiety and Reports suicidal ideation Endocrine Endocrine: Denies palpitations PFSH All Active Problems (Updated 01/19/23 @ 12:38 by Giovani Langley MD) Shortness of breath (Acute) Anxiety (Chronic) Dental infection (Acute) Pulmonary hypertension (Acute) Erectile dysfunction (Acute) On custodial drug therapy (Acute) History of Brittany's gangrene (Acute) Obesity, morbid, BMI 40.0-49.9 (Acute) Obesity hypoventilation syndrome (Chronic) Respiratory failure with hypoxia and hypercapnia (Acute) Diastolic heart failure (Acute) Anxiety (Acute) Cellulitis of leg, left (Acute) Angina pectoris (Chronic) GERD (gastroesophageal reflux disease) (Chronic) Depression (Chronic) Morbid obesity (Chronic) AICD (automatic cardioverter/defibrillator) present (Acute) placed at [facility] for ischemic dilated cardiomyopathy [employer] [address] DR 01/27/21 RH HLD (hyperlipidemia) (Acute) ETOH abuse (Chronic) Drug dependence (Chronic) COPD (chronic obstructive pulmonary disease) (Chronic) Ischemic cardiomyopathy (Chronic) Afib (Chronic) Tobacco use disorder (Acute) Hx of hyperlipidemia (Acute) HTN (hypertension) (Chronic) CAD (coronary artery disease) (Chronic) Medical History Acute hypokalemia Acute non-ST elevation myocardial infarction (NSTEMI) Acute on chronic combined systolic (congestive) and diastolic (congestive) heart failure Acute on chronic heart failure with reduced ejection fraction and diastolic dysfunction Acute respiratory failure with hypoxia Acute respiratory failure with hypoxia and hypercapnia Alcohol use disorder, severe, dependence [facility] 01/21 Cardiac arrest CHF (congestive heart failure) CHF exacerbation Consolidation of left lower lobe of lung Dental infection Exertional chest pain Fluid overload Folliculitis Homelessness Hypercapnia Hypokalemia Lactic acidosis Left thigh pain Leukocytosis Medication monitoring encounter Multifocal pneumonia Pacemaker Pulmonary nodules Sepsis Somnolence Thrombocytosis Surgical History History of coronary artery stent placement History of hernia repair History of right knee joint replacement History of tonsillectomy Social History Smoking/Tobacco Use Status: Current every day Tobacco Type: cigarettes and e-cigarettes Smoking risk assessment performed?: Yes Alcohol Intake: former Year quit: 2020 Details: Former heavy alcohol use. Drug use: Current Sobriety Substance use type: former substance user and prescription drug Housing: other Do you feel safe at home: Yes Do you feel safe in your relationship?: Yes Additional Social history: going through divorce, living in hotel Exam Const General: no acute distress, well developed, well groomed and not in acute distress Nutritional Appearance: obese and overweight Orientation: alert and oriented x3 HENMT Head: normocephalic and atraumatic Ears: external ears normal Mouth: oropharynx normal and moist mucous membranes Teeth and gingiva: caries ( fractured lower mid molar R side; pt. placed temporary filling) Throat: posterior oropharynx normal Eyes Conjunctivae: conjunctivae normal Neck Neck: full ROM and supple Chest Chest: normal inspection of the chest Resp Effort & Inspection: normal respiratory effort Auscultation: clear to auscultation bilaterally Cardio Rate: regular rate Rhythm: regular rhythm Heart Sounds: no murmurs and no rubs GI Inspection: normal to inspection Palpation: soft, nontender and other (non distended) Auscultation: normal bowel sounds Skin General skin exam: no rashes or lesions noted and other (pink, warm, dry) Neuro General: patient alert, patient awake and patient oriented x3 Speech: speech normal Motor: other ([place]) Sensory Exam: no sensory deficits noted Extrem General: normal to inspection, full ROM and pedal edema present Psych Mental Status: mental status grossly normal Speech and Movement: speech and movement normal Affect: normal affect Course Vital Signs Vital signs: Vital Signs Temperature 36.8 C 01/19/23 06:31 Pulse 82 01/19/23 06:31 Blood Pressure 144/87 H 01/19/23 06:31 Pulse Oximetry 97 01/19/23 06:31 Temperature 36.8 C 01/19/23 06:31 Pulse 82 01/19/23 06:31 Respiratory Effort Normal, Non-Labored 01/19/23 06:36 Respiratory Depth Normal 01/19/23 06:36 Respiratory Pattern Normal 01/19/23 06:36 Blood Pressure 144/87 H 01/19/23 06:31 Pulse Oximetry 97 01/19/23 06:31 Oxygen Delivery Method Room Air 01/19/23 06:31 Oxygen Flow Rate 0 01/19/23 06:31 End Tidal Co2 0 01/19/23 06:31 Sign Out Sign Out Data: Sign Out Comment: 52 yo w/extensive PMH including anxiety and depression. Worsening depression for a month, now w/thoughts of SI. Needs medical clearance and psych eval. s/o at 0800. Last updated by Brittany Caro MD at 01/19/23 07:17 Sign Out Comment: worsening anxiety and vague thoughts of si, originally plan for care bed but because he has oxygen as needed ordered under his med list they can't take him so is seeking voluntary placement. Also has dental pain, placed on augmentin. Last updated by Giovani Langley MD at 01/19/23 17:44 Sign Out Comment: Patient stable throughout the night, seeking voluntary placement this morning. Last updated by Israel Rosa DO at 01/20/23 07:16 Sign Out Comment: voluntary for anxiety/depression, awaiting placement, is on augmentin for possible dental infection Last updated by Giovani Langley MD at 01/20/23 11:31
--- NOTE | 2023-01-19 06:45 | DI.RAD_ITS ---
Exam(s) XR PORTABLE CHEST AP EXAM: XR PORTABLE CHEST AP CLINICAL HISTORY: SOB TECHNIQUE: 2D digital imaging was performed of the chest. One image was obtained. An AP view was ob tained. COMPARISON: CR XR PORTABLE CHEST AP from 09/18/2022 FINDINGS: MEDIASTINUM: Normal. HEART: Normal. The pacing device is in good position. PULMONARY VASCULATURE: Normal. LUNGS: Clear. PLEURAL SPACE: No pleural effusion or pneumothorax. BONE:Within normal limits for the patient's age. OTHER FINDINGS:Normal. IMPRESSION: No acute pulmonary findings. DATA REPOSITORY: RADIATION DOSE DELIVERED:
[2023-01-19] MEDS: LORazepam 1 MG TAB PO ×5 (06:54→21:51)
[2023-01-19 07:53] LABS: Troponin I < 50 ng/L (<or=60)
[2023-01-19 07:59] LABS: ALT 15 U/L (16-63); AST 14 U/L (15-37); Albumin 3.5 g/dL (3.4-5.0); Alkaline Phosphatase 95 U/L (46-116); Anion Gap 3.7 mmol/L (3-11); BUN 12 mg/dL (7-18); Bilirubin, Total 0.6 mg/dL (0.2-1.0); CO2 34.3 mmol/L (21.0-32.0); CREATININE 0.9 mg/dL (0.70-1.30); Calcium 9.9 mg/dL (8.5-10.1); Chloride 98 mmol/L (98-107); Estimated GFR 101.49 (mL/min/1.73m2); Glucose 129 mg/dL (74-106); Salicylate 4.4 mg/dL (<2.8); Sodium 136 mmol/L (136-145); Total Protein 7.7 g/dL (6.4-8.2)
[2023-01-19 08:00] LABS: ETHANOL BLOOD < 3.0 mg/dL (<10)
[2023-01-19 08:01] LABS: Acetaminophen < 2 ug/mL (10-30)
[2023-01-19 08:29] LABS: Abs Immature Grans 0.11 10^3/uL (0.0-0.06); Absolute Basophil Count 0.09 10^3/uL (0.0-0.2); Absolute Eosinophil Count 0.39 10^3/uL (0.0-0.7); Absolute Lymphocyte Count 2.03 10^3/uL (1.2-3.4); Absolute Monocyte Count 0.81 10^3/uL (0.1-0.8); Absolute Neutrophil Count 5.13 10^3/uL (1.2-6.7); Basophils % 1.1; Eosinophils % 4.6; HCT 38.1 % (40.0-50.0); HGB 12.8 g/dL (13.5-17.5); Immature Grans % 1.3; Lymphocytes % 23.7; MCH 30.3 pg (27.0-33.0); MCHC 33.6 % (32.0-36.0); MCV 90 fL (80-95); MPV 9.3 fL (8.0-11.0); Monocytes % 9.5; Neutrophils % 59.8; Platelet Count 381 10^3/uL (130-400); RBC 4.23 10^6/uL (4.36-5.78); RDW 14.5 % (11.8-14.1); RDW-SD 47.5 fL; WBC 8.56 10^3/uL (4.4-10.8)
[2023-01-19 08:44] LABS: Bilirubin Negative (Negative); Blood Trace-lysed (Negative); Clarity Clear (Clear); Glucose Negative (Negative); Ketones Negative (Negative); Leukocyte Esterase Negative (Negative); Nitrite Negative (Negative); Specific Gravity 1.015 (1.005-1.025); Urobilinogen 0.2 mg/dL (Up to 0.2)
[2023-01-19 08:53] LABS: Bacteria Negative HPF (Negative); C & S Indicated? No; Casts Negative LPF (Negative); Crystals Negative HPF (Negative); Epithelial Cells Rare HPF (Negative); Mucus Negative (Negative); RBC 0-2 HPF (0-2); WBC Negative HPF (0-5)
[2023-01-19 08:55] LABS: *AMPHETAMINES SCREEN URINE Negative (Negative); *BARBITURATES SCREEN URINE Negative (Negative); *BENZODIAZEPINES SCREEN URINE Negative (Negative); Cannabinoids THC Negative (Negative); Cocaine Screen,Urine Negative (Negative); METHADONE URINE SCREEN Negative (Negative); OPIATES URINE SCREEN Negative (Negative)
[2023-01-19 08:57] LABS: Tricyclic Antidepressants Negative (Negative)
--- NOTE | 2023-01-19 09:02 | CMSP_ITS ---
Date of service: 01/19/23 Time of Service: 09:02 Care Management Safety Plan Status Status: Voluntary Reason for Wait Reason for Wait: Assessment/Screening Safety Plan Safety Plan: Chief Complaint: Pramod presents in the ED seeking assistance for worsening anxiety, intrusive thoughts and suicidal ideation. Per MD note, he is prescribed Ativan 1 mg BID prn but he usually runs out of the medication before it is due to be refilled. CM will respond to ED to assess patient after patient has been medically cleared and assessed by screener. If screener deems patient meets criteria for psychiatric stabilization CM will facilitate interdepartmental huddle with [facility] screener for safety planning considerations and meet with patient to review [facility] policy and safety plan, establish individual wishes for treatment and maintain patient rights. In the interim; please note safety plan below to guide patient care while awaiting further assessment in the ED.? SAFETY PLAN: 1. Will remain on suicide precautions and in paper clothes.? 2. Will remain in room under direct supervision of one-on-one staff at all times provided by [employer], DAVID, [employer] assistant boiler operator. 3. May have paper cups, plates, finger foods as well as a cardboard spoon with which to eat meals. 4. Follow [facility] Management of the Admitted Behavioral Health Patient policy. 5. Personal care: Comfort bath system only at this time. 6. Bathroom privileges: with escort in ED. Available in room without limitation on Med/Surg. 6. No personal belongings at this time; per RN discretion. 7. No visitors at this time. 8. Phone contact limited to legal contact via cordless hospital phone at this time. 9. Activities: Music tablet, television per RN discretion. 10. Due to VOLUNTARY status, if patient wishes to leave [facility], staff will contact [facility] Crisis Screener ([phone]) and On-Call [place] Opener ([phone]) as soon as possible. In the event of elopement, notify [place] [employer] ([phone]). ? If deemed appropriate for inpatient psychiatric care, safety plan will be established with patient, and care team, to adhere to patient goals, identify restrictions based on behavioral status, address nutrition, and determine allowed personal belongings, tools for hygiene and personal care. As well plan will determine level of activity including ambulation, level of supervision, visitors, and determine privileges based on level of acuity, behaviors and level of engagement by patient.
--- NOTE | 2023-01-19 11:00 | ED.PROG_ITS ---
Date of service: 01/19/23 Time of Service: 11:01 Medical Decision Making pt stable, met with Shari from [facility] and is going to go to the care bed and has a 1pm psychiatry appointment as well. Pt calm and cooperative, no si during my exam so feel this is a safe plan, return precautions given per Shari from [facility] care bed not avaiable, thought they'd have a d/c but isn't happening today, will remain in the ED until care bed found. Pt also has right lower posterior molar pain for several days and has a broken tooth in this area, no visible abscess, will start on augmentin Sign Out Sign Out Data: Sign Out Comment: 52 yo w/extensive PMH including anxiety and depression. Worsening depression for a month, now w/thoughts of SI. Needs medical clearance and psych eval. s/o at 0800. Last updated by Brittany Caro MD at 01/19/23 07:17 Discharge Plan Disposition Patient Disposition: Home Condition: Stable Discharge Details Clinical Impression: Anxiety, Dental infection Primary Care Provider: Gerri Silverman ED Provider: Giovani Langley Home Meds and New Rx's Prescriptions: New amoxicillin-pot clavulanate 875-125 mg tablet 1 tab PO BID Qty: 14 0RF Continued nitroglycerin 0.4 mg tablet, sublingual 0.4 mg sublingual Q5-15M PRN (Reason: chest pain) Qty: 90 3RF Rx Instructions: do not exceed 3 doses per episode folic acid 1 mg tablet 1,000 mcg PO DAILY Patient Comments: 10/07/22 per PCP prescribed as 1 mg daily RH azithromycin 250 mg tablet 250 mg PO DAILY Qty: 30 12RF Eliquis 5 mg tablet 5 mg PO BID potassium chloride [Klor-Con M20] 20 mEq tablet,ER particles/crystals 20 meq PO DAILY gabapentin 100 mg capsule 400 mg PO QID buspirone 15 mg tablet 15 mg PO BID losartan 25 mg tablet 25 mg PO DAILY Trelegy Ellipta 100-62.5-25 mcg blister with device 1 inh inhalation DAILY Patient Comments: 12/22/22 this is on med list from PCP office, not sure about dosing RH acetaminophen 500 mg capsule 1,000 mg PO Q6H PRN spironolactone 25 mg tablet 25 mg PO DAILY Super Multiple Tablet 1 tab PO DAILY melatonin 10 mg capsule 10 mg PO HS PRN trazodone 50 mg tablet 50 mg PO QHS PRN (DME) Oxygen Tank See Rx Instructions .Route Rx Instructions: 2-3L as needed buprenorphine-naloxone 2-0.5 mg film 2 film buccal DAILY Patient Comments: 11/03/22 - patient states he is on 20mg now. Goes through [facility] 10/12/22 updated from pcp list jwo Rx Instructions: place 2 strip/tab under (each) side of tongue Stiolto Respimat 2.5-2.5 mcg/actuation mist 2 puff inhalation DAILY Qty: 4 12RF citalopram 20 mg Tablet 20 mg PO DAILY albuterol sulfate 90 mcg/actuation aerosol powdr breath activated 2 inh inhalation Q4H PRNQty: 1 0RF nicotine 21 mg/24 hr Patch 24 Hour 21 mg transdermal DAILY Qty: 30 0RF ipratropium-albuterol 0.5 mg-3 mg(2.5 mg base)/3 mL Solution For Nebulization 3 ml UPD Q6H PRN PRN (Reason: wheezing) Qty: 180 0RF Deep [place] Nasal 0.65 % Aerosol,[place] 2 spray NS QID PRN PRN (Reason: nasal congestion) Qty: 44 0RF torsemide 20 mg tablet 60 mg PO DAILY Qty: 90 3RF isosorbide mononitrate 30 mg Tablet Extended Release 24 Hr 30 mg PO DAILY aspirin 81 mg Tablet,Delayed Release (Dr/Ec) 81 mg PO DAILY ranolazine 500 mg Tablet Extended Release 12 Hr 500 mg PO BID atorvastatin 80 mg tablet 80 mg PO DAILY Qty: 30 0RF pantoprazole [Protonix] 40 mg tablet,delayed release (DR/EC) 40 mg PO DAILY Qty: 30 0RF No Action amiodarone 100 mg tablet 100 mg PO DAILY Patient Comments: 08/05/[address] More on 07/01/22, PCP office noticed change RH Discharge Instructions Instructions: Anxiety (ED) Additional Instructions: follow up with your psychiatry provider and primary care provider if you feel more ill, have worsening thoughts of self harm return to the emergency department
--- NOTE | 2023-01-19 11:53 | PDOC.MHCN_ITS ---
Date of service: 01/19/23 Time of Service: 12:12 PHQ-9 Over the last 2 weeks, how often have you been bothered by any of the following problems? 1. Little interest or pleasure in doing things: nearly every day 2. Feeling down, depressed, or hopeless: nearly every day 3. Trouble falling or staying asleep, or sleeping too much: nearly every day 4. Feeling tired or having little energy: nearly every day 5. Poor appetite or overeating: nearly every day 6. Feeling bad about yourself - or that you are a failure or have let yourself and your family down: nearly every day 7. Trouble concentrating on things, such as reading the newspaper or watching television: nearly every day 8. Moving or speaking so slowly that other people could have noticed? - Or the opposite - being so fidgety or restless that you have been moving around a lot more than usual: nearly every day 9. Thoughts that you would be better off or of hurting yourself in some way: nearly every day Total score: 27 If you checked off any problems, how difficult have these problems made it for you to do your work, take care of things at home, or get along with other people?: extremely difficult PHQ-9 Results: Positive Source: Developed by Drs. Juan José Jovel, Camryn Romero, Jose Bryant and colleagues, with an educational bertha from [employer]. Suicide Severity Rate CSSRS Have you wished you were or wished you could go to sleep and not wake up?: Yes Have you actually had any thoughts of killing yourself?: Yes CSSRS2 Have you been thinking about how you might do this?: Yes Have you had these thoughts and had some intention of acting on them?: Yes Have you started to work out or worked out the details of how to kill yourself? Do you intend to carry out this plan?: Yes CSSRS3 Have you ever done anything, started to do anything or prepared to do anything to end your life?: Yes CSSRS4 Was this within the past three months?: No Screening Score Total Score: 6 Screening: Positive Mental Health Emergency Note Release [facility] release signed:: Yes Reason for Visit The client presented to the ED due to an increase in symptoms relating to his anxiety. He is seeking support so that he does not act on his thoughts of SI. In the last 2 weeks has the pt presented for ES prior to today?: Yes, presented at [facility] ED Client Information Client is: Adult Outpatient Well Housed: Yes Non Suicidal Self Injury Current: No History: yes, cutting Safety Risk/Harm to Self or Others Current Ideation to Harm Self or Others: Yes to self. Intent: yes, has intent. Plan: yes,has a plan. History of suicide attempt: yes,history of suicide attempt reported. Details of previous suicide attempt: Did not share Risk: Does risk to harm exist?: yes. Access to means: Yes. Types of Means: Other weapons and Medication. Counseling provided: Yes Risk: Moderate Risk Duty to warn indicated: No Asssessment/Mental Status Appearance: Disheveled Attitude: Cooperative Behavior: Repetitive movements Speech: Normal Affect: Cogruent with mood Mood: Anxious Thought process: Unremarkable Hallucinations: No Delusions: No Attention: Unremarkable Perception: Not impaired Orientation: Fully orientated Memory: Intact Insight: Good Judgement: Good Neurovegetative Symptoms Sleep: Increase Appetitie: Decrease Interests: Decrease Energy: Decrease Libido: Decrease Substance Use: Do you use nicotine?: Yes Have you used substances in the last 7 days?: No Additional Issues: Assaultive/Threatening Behavior: No Medical Concerns: No Client engaged in active self harm w/weapon: No Threatening to run away: No Child reported abuse/neglect: No Voluntarily presenting for services: Yes Domestic violence is a concern: No Extreme Psychosis or extreme behavior is present: No Impression The client is a 52 year old, single, male who resides at the [facility] in [facility]. He is disabled due to a heart attack that happened a year ago. Prior to that however, he reported he was working three jobs, 7 days a week. The client presented to the ED due to ongoing complaints of anxiety that cause him panic and shortness of breath. He was seen at the ED a couple of weeks ago per his record review for similar symptoms however, he reported the symptoms subsided and he returned home. He notes he has also used pain medications and Heroin to try to manage the symptoms in osmany of Ativan. He reported he cannot return home as he will act on his thoughts of suicide. He described that he is isolating more now and has a decrease in appetite, interests and energy and an increase in his need for sleep. He reported that he has been experiencing some hallucinations of people knocking on his door day and night and when he goes to check there is no one there. The client scored a 27/27 on the PHQ-9 and answered yes to all questions on the CSSRS however, noted he did not want to act on those thoughts as he wants help. He reported a history of cutting as a form of NSSI and denied recent cutting. He noted his last NSSI was a year ago. He reports medical issues of COPD and Heart Disease. He is on a list of meds but could not identify them all by names. Last year the client was admitted to the [facility] and then the [facility] Bed at different times. He reports a family history of [place] but denied a history of substance abuse, legal issues and suicide. His symptoms are consistent with a diagnoses of a generalized anxiety disorder as well as, MDD which is what he is diagnosed with at [facility]. He is agreeable to treatment at this time. Resources Reosurces reviewed and given:: Crisis Bed Plan/Disposition Recommended Disposition: Crisis bed, (will accept him tomorrow. ) facility contacted. Status of Crisis Bed acceptance: Transfer pending/bed availability. Plan: This clinician had made an appointment for the client with his PCP, Gerri Silverman for today at 1pm however, upon returning back to the agency this clinician noticed he was receiving his medications through [facility]. This clinician spoke with his PCP as well as the clinical campus administrative assistant and the PMHNP, Pramod Brennan who will put him in her schedule for 01.20.23 @ 11am. Ms. Silverman was not willing to make any changes to his medications as he is being followed by [facility]. The client has been accepted to the [facility] Bed however there is no bed available for today. He will be admitted on 01.20.23. Until that time he will remain at [facility] and will be reassessed in the am if not accepted today. The CARE Bed had to decline him as he is on Oxygen as needed at home. Referrals have been sent to all hospitals. His appointment with Pramod has been cancelled. Person reported agreement to plan: Yes Facilities contacted if Applicable Other: Other Reports/communication Outcome discussed with: ED/Personnel
[2023-01-19] MEDS: Amoxicillin 875/Clav. 125 TAB PO ×2 (12:51→20:01)
[2023-01-19] MEDS: Acetaminophen 500 MG TAB 1000 MG PO (12:51)
[2023-01-19] MEDS: Ibuprofen 600 MG TAB PO (12:51)
[2023-01-19] MEDS: Benzocaine 20% Gel 30 GM JAR MM (12:51)
--- NOTE | 2023-01-19 13:48 | PDOC.CMSAFE ---
Date of service: 01/19/23 Time of Service: 13:49 Care Management Safety Plan Status Status: Voluntary Reason for Wait Reason for Wait: Community Placement ([facility] Care Bed) Safety Plan Safety Plan: CHIEF COMPLAINT: VOLUNTARY FOR INPATIENT PSYCHIATRIC STABILIZATION.? Patient is appropriate in all interactions since arriving at [facility]; Pt has demonstrated appropriate coping and communication skills, has articulated his or her needs and concerns and is fully engaged during staff interactions. Safety plan has been established with patient, and care team, to adhere to patient goals, identify restrictions based on behavioral status, address nutrition, and determine allowed personal belongings, tools for hygiene and personal care. Determine level of activity including ambulation, level of supervision, visitors, and determine privileges based on behaviors and level of engagement by pt. SAFETY PLAN: 1. Will remain on suicide precautions. In Paper Clothes 2. Will remain in room under direct supervision of one-on-one staff at all times provided by CPSO, CONVENIENCE STORE CLERK, CONTINUITY READER unemployment insurance director. 3. May have paper cups, plates, finger foods as well as a cardboard spoon with which to eat meals. 4. Follow [facility] Management of the Admitted Behavioral Health Patient policy. 5. Comfort bath system only, shower permitted with escort at RN discretion. 6. No personal belongings-soft items permitted at RN discretion. 7. Visitors-none at this time. 8. Activities: soft cart items, television and other activities approved per RN discretion. 9.? Bathroom privileges with escort in the ED, available in room without limitation on M/S. 10. Phone: contact limited to family at this time, via [employer] hospital phone at RN discretion. 11. Due to VOLUNTARY status, if patient wishes to leave [facility], staff will contact [facility] Crisis Screener ([phone]) and On-Call Diesel Dinkey Operator ([phone]) as soon as possible. In the event of elopement, notify [place] State Police ([phone]). Patient is currently voluntarily at [facility] and seeking inpatient admission when a bed becomes available. [facility] Frontline Traffic Circuit Engineer will continue seeking placement. Please contact the Motor Electrician Diesel Dinkey Operator ([phone]) and [facility] Traffic Circuit Engineer ([phone]) for any needed changes in the Safety Plan. Safety plan has been provided to interdepartmental care team.
[2023-01-19 14:02] VITALS: BP 110/66; PULSE 65; TEMP 36.4; O2SAT 91
[2023-01-19] MEDS: oxyCODONE 5 MG TAB PO (14:13)
--- NOTE | 2023-01-19 14:15 | CMSP_ITS ---
Date of service: 01/19/23 Time of Service: 14:15 Care Management Safety Plan Status Status: Voluntary Reason for Wait Reason for Wait: Inpatient Admission Safety Plan Safety Plan: PLAN UPDATE: Patient was assessed by [facility] and a plan was made for him to be placed at the Care Bed. This plan has since changed due to patient's use of O2 prn and the Care Bed's inability to accept patients with a need for oxygen. [facility] has now faxed referrals to [facility], [facility], [facility], and [place] for review. Patient will remain at [facility] and will be reassessed daily by [facility] until a voluntary placement is secured for him. CM will continue to follow. VOLUNTARY FOR INPATIENT PSYCHIATRIC STABILIZATION.? Patient is appropriate in all interactions since arriving at [facility]; Pt has demonstrated appropriate coping and communication skills, has articulated his or her needs and concerns and is fully engaged during staff interactions. Safety plan has been established with patient, and care team, to adhere to patient goals, identify restrictions based on behavioral status, address nutrition, and determine allowed personal belongings, tools for hygiene and personal care. Determine level of activity including ambulation, level of supervision, visitors, and determine privileges based on behaviors and level of engagement by pt. SAFETY PLAN: 1. Will remain on suicide precautions. In Paper Clothes 2. Will remain in room under direct supervision of one-on-one staff at all times provided by CPSO, SENIOR PYTHON DEVELOPER, BUSINESS TEAM LEADER economic history teacher. 3. May have paper cups, plates, finger foods as well as a cardboard spoon with which to eat meals. 4. Follow [facility] Management of the Admitted Behavioral Health Patient policy. 5. Comfort bath system only, shower permitted with escort at RN discretion. 6. No personal belongings-soft items permitted at RN discretion. 7. Visitors-none at this time. 8. Activities: soft cart items, television and other activities at RN discr etion. 9.? Bathroom privileges with escort in the ED, available in room without limitation on M/S. 10. Phone: contact limited to family at this time, via [employer] [facility] phone at RN discretion. 11. Due to VOLUNTARY status, if patient wishes to leave [facility], staff will contact [facility] Crisis Screener ([phone]) and On-Call Straightening Machine Operator ([phone]) as soon as possible. In the event of elopement, notify [facility] Police ([phone]). Patient is currently voluntarily at [facility] and seeking inpatient admission when a bed becomes available. [facility] Frontline Oil And Gas Lease Pumper will continue seeking placement. Please contact the Master Pilot Straightening Machine Operator ([phone]) and [facility] Oil And Gas Lease Pumper ([phone]) for any needed changes in the Safety Plan. Safety plan has been provided to interdepartmental care team.
--- NOTE | 2023-01-19 14:15 | PDOC.CMSAFE ---
Date of service: 01/19/23 Time of Service: 14:15 Care Management Safety Plan Status Status: Voluntary Reason for Wait Reason for Wait: Inpatient Admission Safety Plan Safety Plan: PLAN UPDATE: Patient was assessed by [facility] and a plan was made for him to be placed at the Care Bed. This plan has since changed due to patient's use of O2 prn and the Care Bed's inability to accept patients with a need for oxygen. [facility] has now faxed referrals to [facility], [facility], [facility], and [place] for review. Patient will remain at [facility] and will be reassessed daily by [facility] until a voluntary placement is secured for him. CM will continue to follow. VOLUNTARY FOR INPATIENT PSYCHIATRIC STABILIZATION.? Patient is appropriate in all interactions since arriving at [facility]; Pt has demonstrated appropriate coping and communication skills, has articulated his or her needs and concerns and is fully engaged during staff interactions. Safety plan has been established with patient, and care team, to adhere to patient goals, identify restrictions based on behavioral status, address nutrition, and determine allowed personal belongings, tools for hygiene and personal care. Determine level of activity including ambulation, level of supervision, visitors, and determine privileges based on behaviors and level of engagement by pt. SAFETY PLAN: 1. Will remain on suicide precautions. In Paper Clothes 2. Will remain in room under direct supervision of one-on-one staff at all times provided by CPSO, RESPIRATORY CARE PRACTITIONER, END FRAZER crime scene investigator. 3. May have paper cups, plates, finger foods as well as a cardboard spoon with which to eat meals. 4. Follow [facility] Management of the Admitted Behavioral Health Patient policy. 5. Comfort bath system only, shower permitted with escort at RN discretion. 6. No personal belongings-soft items permitted at RN discretion. 7. Visitors-none at this time. 8. Activities: soft cart items, television and other activities at RN discretion. 9.? Bathroom privileges with escort in the ED, available in room without limitation on M/S. 10. Phone: contact limited to family at this time, via [employer] [facility] phone at RN discretion. 11. Due to VOLUNTARY status, if patient wishes to leave [facility], staff will contact [facility] Crisis Screener ([phone]) and On-Call Administrative Services Officer ([phone]) as soon as possible. In the event of elopement, notify [facility] Police ([phone]). Patient is currently voluntarily at [facility] and seeking inpatient admission when a bed becomes available. [facility] Frontline Foreign Banknote Teller Trader will continue seeking placement. Please contact the Clinical Abstractor Administrative Services Officer ([phone]) and [facility] Foreign Banknote Teller Trader ([phone]) for any needed changes in the Safety Plan. Safety plan has been provided to interdepartmental care team.
[2023-01-19] MEDS: Gabapentin 100 MG CAP PO ×2 (17:13→20:01)
[2023-01-19] MEDS: Gabapentin 300 MG CAP PO ×2 (17:13→20:01)
--- NOTE | 2023-01-19 17:35 | NUR.NOTE ---
Freddy declinded pt due to extensive medical hx
[2023-01-19] MEDS: Apixaban 5 MG TAB PO (20:01)
[2023-01-19] MEDS: busPIRone 15 MG TAB PO (20:20)
[2023-01-19] MEDS: Ranolazine 500 MG TABCR PO (20:20)
[2023-01-19] MEDS: Melatonin 3 MG TAB 9 MG PO (21:50)
--- NOTE | 2023-01-20 07:52 | W.EDPROG ---
Date of service: 01/20/23 Time of Service: 07:52 Medical Decision Making pt had no issues overnight, currently calm and cooperative awaiting safe dispo and current plan is to seek voluntary psych placement Sign Out Sign Out Data: Sign Out Comment: 52 yo w/extensive PMH including anxiety and depression. Worsening depression for a month, now w/thoughts of SI. Needs medical clearance and psych eval. s/o at 0800. Last updated by Brittany Caro MD at 01/19/23 07:17 Sign Out Comment: worsening anxiety and vague thoughts of si, originally plan for care bed but because he has oxygen as needed ordered under his med list they can't take him so is seeking voluntary placement. Also has dental pain, placed on augmentin. Last updated by Giovani Langley MD at 01/19/23 17:44 Sign Out Comment: Patient stable throughout the night, seeking voluntary placement this morning. Last updated by Israel Rosa DO at 01/20/23 07:16 Discharge Plan Disposition Patient Disposition: Home Condition: Stable Discharge Details Clinical Impression: Anxiety, Dental infection Primary Care Provider: Gerri Silverman ED Provider: Giovani Langley Home Meds and New Rx's Prescriptions: New amoxicillin-pot clavulanate 875-125 mg tablet 1 tab PO BID Qty: 14 0RF Continued nitroglycerin 0.4 mg tablet, sublingual 0.4 mg sublingual Q5-15M PRN (Reason: chest pain) Qty: 90 3RF Rx Instructions: do not exceed 3 doses per episode folic acid 1 mg tablet 1,000 mcg PO DAILY Patient Comments: 10/07/22 per PCP prescribed as 1 mg daily RH azithromycin 250 mg tablet 250 mg PO DAILY Qty: 30 12RF Eliquis 5 mg tablet 5 mg PO BID potassium chloride [Klor-Con M20] 20 mEq tablet,ER particles/crystals 20 meq PO DAILY gabapentin 100 mg capsule 400 mg PO QID buspirone 15 mg tablet 15 mg PO BID losartan 25 mg tablet 25 mg PO DAILY Trelegy Ellipta 100-62.5-25 mcg blister with device 1 inh inhalation DAILY Patient Comments: 12/22/22 this is on med list from PCP office, not sure about dosing RH acetaminophen 500 mg capsule 1,000 mg PO Q6H PRN spironolactone 25 mg tablet 25 mg PO DAILY Super Multiple Tablet 1 tab PO DAILY melatonin 10 mg capsule 10 mg PO HS PRN trazodone 50 mg tablet 50 mg PO QHS PRN (DME) Oxygen Tank See Rx Instructions .Route Rx Instructions: 2-3L as needed buprenorphine-naloxone 2-0.5 mg film 2 film buccal DAILY Patient Comments: 11/03/22 - patient states he is on 20mg now. Goes through [facility] 10/12/22 updated from pcp list jwo Rx Instructions: place 2 strip/tab under (each) side of tongue Stiolto Respimat 2.5-2.5 mcg/actuation mist 2 puff inhalation DAILY Qty: 4 12RF citalopram 20 mg Tablet 20 mg PO DAILY albuterol sulfate 90 mcg/actuation aerosol powdr breath activated 2 inh inhalation Q4H PRNQty: 1 0RF nicotine 21 mg/24 hr Patch 24 Hour 21 mg transdermal DAILY Qty: 30 0RF ipratropium-albuterol 0.5 mg-3 mg(2.5 mg base)/3 mL Solution For Nebulization 3 ml UPD Q6H PRN PRN (Reason: wheezing) Qty: 180 0RF Deep Sea Nasal 0.65 % Aerosol,Sebastian 2 spray NS QID PRN PRN (Reason: nasal congestion) Qty: 44 0RF torsemide 20 mg tablet 60 mg PO DAILY Qty: 90 3RF isosorbide mononitrate 30 mg Tablet Extended Release 24 Hr 30 mg PO DAILY aspirin 81 mg Tablet,Delayed Release (Dr/Ec) 81 mg PO DAILY ranolazine 500 mg Tablet Extended Release 12 Hr 500 mg PO BID atorvastatin 80 mg tablet 80 mg PO DAILY Qty: 30 0RF pantoprazole [Protonix] 40 mg tablet,delayed release (DR/EC) 40 mg PO DAILY Qty: 30 0RF No Action amiodarone 100 mg tablet 100 mg PO DAILY Patient Comments: 08/05/[address] More on 07/01/22, PCP office noticed change RH Discharge Instructions Instructions: Anxiety (ED) Additional Instructions: follow up with your psychiatry provider and primary care provider if you feel more ill, have worsening thoughts of self harm return to the emergency department
[2023-01-20 08:15] VITALS: BP 131/78; PULSE 71; RESP 20; TEMP 36.1; O2SAT 95
[2023-01-20] MEDS: LORazepam 1 MG TAB PO ×2 (08:24→16:07)
[2023-01-20] MEDS: Aspirin 81 MG CHEW PO (08:25)
[2023-01-20] MEDS: Azithromycin 250 MG TAB PO (08:25)
[2023-01-20] MEDS: Amoxicillin 875/Clav. 125 TAB PO (08:25)
[2023-01-20] MEDS: Gabapentin 300 MG CAP PO ×3 (08:25→16:08)
[2023-01-20] MEDS: Pantoprazole 40 MG TABCR PO (08:25)
[2023-01-20] MEDS: Gabapentin 100 MG CAP PO ×3 (08:25→16:07)
[2023-01-20] MEDS: Atorvastatin 40 MG TAB 80 MG PO (08:26)
[2023-01-20] MEDS: Buprenorphine/Naloxone 12 mg/3 mg FILM 1 EACH SL (08:26)
[2023-01-20] MEDS: Apixaban 5 MG TAB PO (08:26)
[2023-01-20] MEDS: Buprenorphine/Naloxone 8 mg/2 mg FILM 1 EACH SL (08:26)
[2023-01-20] MEDS: Amiodarone 200 MG TAB 100 MG PO (08:27)
[2023-01-20] MEDS: Isosorbide Mononitrate 30 MG TABCR PO (09:33)
[2023-01-20] MEDS: Ranolazine 500 MG TABCR PO (09:34)
[2023-01-20] MEDS: Losartan 25 MG TAB PO (09:34)
[2023-01-20] MEDS: Spironolactone 25 MG TAB PO (09:35)
[2023-01-20] MEDS: Torsemide 20 MG TAB 60 MG PO (09:35)
[2023-01-20] MEDS: Citalopram 20 MG TAB PO (09:36)
[2023-01-20] MEDS: busPIRone 15 MG TAB PO (09:36)
[2023-01-20] MEDS: Nicotine 21 MG/24 HR PATCH TD (10:26)
[2023-01-20] MEDS: clonazePAM 1 MG TAB PO (12:32)
--- NOTE | 2023-01-20 13:04 | CMSP_ITS ---
Date of service: 01/20/23 Time of Service: 13:05 Care Management Safety Plan Status Status: Voluntary Reason for Wait Reason for Wait: Inpatient Admission Safety Plan Safety Plan: VOLUNTARY FOR INPATIENT PSYCHIATRIC STABILIZATION.? Patient is appropriate in all interactions since arriving at [facility]; Pt has demonstrated appropriate coping and communication skills, has articulated his or her needs and concerns and is fully engaged during staff interactions. Safety plan has been established with patient, and care team, to adhere to patient goals, identify restrictions based on behavioral status, address nutrition, and determine allowed personal belongings, tools for hygiene and personal care. Determine level of activity including ambulation, level of supervision, visitors, and determine privileges based on behaviors and level of engagement by pt. SAFETY PLAN: 1. Will remain on suicide precautions. In Paper Clothes. 2. Will remain under direct supervision of one-on-one staff at all times provided by CPSO, CAR REFINISHER, OXYACETYLENE WELDER planning coordinator. 3. May have paper cups, plates, finger foods as well as a cardboard spoon with which to eat meals. 4. Follow [facility] Management of the Admitted Behavioral Health Patient policy. 5. Comfort bath system only, shower permitted at RN discretion. 6. No personal belongings-soft items permitted at RN discretion. 7. Visitors-none at this time. 8. Activities: soft cart items, television and other activities at RN discretion. 9.? Bathroom privileges with escort in the ED, available without limitation on Zone B. 10. Phone: contact limited to family at this time, via [employer] hospital phone at RN discretion. 11. Due to VOLUNTARY status, if patient wishes to leave [facility], staff will contact [facility] Crisis Screener ([phone]) and On-Call Automatic Lathe Setter ([phone]) as soon as possible. In the event of elopement, notify [place] State Police ([phone]). Patient is currently voluntarily at [facility] and seeking inpatient admission when a bed becomes available. [facility] Frontline Glass Carrier will continue seeking placement. Please contact the Stage Producer Automatic Lathe Setter ([phone]) and [facility] Glass Carrier ([phone]) for any needed changes in the Safety Plan. Safety plan has been provided to interdepartmental care team.
--- NOTE | 2023-01-20 14:19 | CMPROGNOTE_ITS ---
Date of service: 01/20/23 Time of Service: 14:19 Care Management Progress Note Progress Note Text Progress Note Text: S/O: Luis is lying in bed when CM comes to meet with him. He is pleasant and easily engages in conversation. He shares he has been psychiatrically hospitalized at [facility] in the past and found it helpful. CM advises him that he has a bed offer at the [facility]. Luis is thankful to be getting help. We then discuss expectations and CM answers any questions. A: Pramod is a 52 year old male who presented in the ED on 01/19/2023 for anxiety and suicidal ideation. P: Luis is accepted by the [facility] for mood stabilization. He will follow up with his PCP, [facility] and plan of care as instructed upon discharge from the [facility]. He is transported to [place] by [facility]. Status Status: Voluntary Reason for Wait: Inpatient Admission
[2023-01-20] MEDS: Ibuprofen 600 MG TAB PO (16:07)
== END 2023-01-20 17:25 | disposition home or self-care (01) ==
PROVIDERS: Emergency Provider Emergency Medicine; PCP Nurse Practitioner Family
DX: R45.851 Suicidal ideations (principal); R41.9 Unspecified symptoms and signs involving cognitive functions and awareness; R06.02 Shortness of breath; K04.7 Periapical abscess without sinus; J44.9 Chronic obstructive pulmonary disease, unspecified; I25.10 Atherosclerotic heart disease of native coronary artery without angina pectoris; I25.2 Old myocardial infarction; I11.0 Hypertensive heart disease with heart failure; I50.42 Chronic combined systolic (congestive) and diastolic (congestive) heart failure; Z95.810 Presence of automatic (implantable) cardiac defibrillator; Z79.01 Long term (current) use of anticoagulants
CPT/HCPCS: 36415; 80053; 80307; 93005; 99285; 71045; 80320; 80329; 81003; 81015; 83735; 84484; 85025; 93010; J3490

== ENCOUNTER 2023-02-04 12:28 | Emergency (ER) | payer MEDICAID, SELFPAY ==
[2023-02-04 12:36] VITALS: BP 137/70; PULSE 83; RESP 18; TEMP 36.8; O2SAT 99
[2023-02-04 13:15] LABS: Abs Immature Grans 0.03 10^3/uL (0.0-0.06); Absolute Eosinophil Count 0.36 10^3/uL (0.0-0.7); Absolute Lymphocyte Count 3.08 10^3/uL (1.2-3.4); Absolute Monocyte Count 1.13 10^3/uL (0.1-0.8); Absolute Neutrophil Count 5.61 10^3/uL (1.2-6.7); Eosinophils % 3.5; HCT 36.1 % (40.0-50.0); Immature Grans % 0.3; Lymphocytes % 29.9; MCH 29.8 pg (27.0-33.0); MCHC 33.2 % (32.0-36.0); MCV 90 fL (80-95); MPV 8.4 fL (8.0-11.0); Neutrophils % 54.3; Platelet Count 449 10^3/uL (130-400); RBC 4.03 10^6/uL (4.36-5.78); RDW 13.9 % (11.8-14.1); RDW-SD 45.4 fL; WBC 10.31 10^3/uL (4.4-10.8)
[2023-02-04 13:41] LABS: ALT 18 U/L (16-63); AST 18 U/L (15-37); Albumin 3.1 g/dL (3.4-5.0); Alkaline Phosphatase 103 U/L (46-116); Anion Gap 3.8 mmol/L (3-11); BUN 9 mg/dL (7-18); Bilirubin, Total 0.3 mg/dL (0.2-1.0); CO2 37.2 mmol/L (21.0-32.0); CREATININE 0.9 mg/dL (0.70-1.30); Calcium 9.6 mg/dL (8.5-10.1); Chloride 94 mmol/L (98-107); ETHANOL BLOOD < 3.0 mg/dL (<10); Estimated GFR 101.49 (mL/min/1.73m2); Glucose 59 mg/dL (74-106); Potassium 3.2 mmol/L (3.5-5.1); Sodium 135 mmol/L (136-145); TSH (W/Ref FT4) 0.84 uIU/mL (0.36-3.74); Total Protein 7.5 g/dL (6.4-8.2)
[2023-02-04] MEDS: LORazepam 1 MG TAB PO ×2 (13:46→20:28)
--- NOTE | 2023-02-04 14:19 | ED.GENADUL_ITS ---
Discharge Plan Discharge Details Chief Complaint: PsychEval Primary Care Provider: Gerri Silverman ED Provider: Mary Hankins Home Meds and New Rx's Prescriptions: No Action nitroglycerin 0.4 mg tablet, sublingual 0.4 mg sublingual Q5-15M PRN (Reason: chest pain) Qty: 90 3RF Rx Instructions: do not exceed 3 doses per episode folic acid 1 mg tablet 1,000 mcg PO DAILY Patient Comments: 10/07/22 per PCP prescribed as 1 mg daily RH azithromycin 250 mg tablet 250 mg PO DAILY Qty: 30 12RF Eliquis 5 mg tablet 5 mg PO BID potassium chloride [Klor-Con M20] 20 mEq tablet,ER particles/crystals 20 meq PO DAILY gabapentin 100 mg capsule 400 mg PO QID buspirone 15 mg tablet 15 mg PO BID losartan 25 mg tablet 25 mg PO DAILY Trelegy Ellipta 100-62.5-25 mcg blister with device 1 inh inhalation DAILY Patient Comments: 12/22/22 this is on med list from PCP office, not sure about dosing RH acetaminophen 500 mg capsule 1,000 mg PO Q6H PRN spironolactone 25 mg tablet 25 mg PO DAILY Super Multiple Tablet 1 tab PO DAILY melatonin 10 mg capsule 10 mg PO HS PRN trazodone 50 mg tablet 50 mg PO QHS PRN (DME) Oxygen Tank See Rx Instructions .Route Rx Instructions: 2-3L as needed Stiolto Respimat 2.5-2.5 mcg/actuation mist 2 puff inhalation DAILY Qty: 4 12RF aspirin 81 mg tablet,delayed release (DR/EC) 81 mg PO DAILY Qty: 90 3RF amiodarone 100 mg tablet 100 mg PO DAILY Qty: 90 3RF citalopram 20 mg Tablet 20 mg PO DAILY albuterol sulfate 90 mcg/actuation aerosol powdr breath activated 2 inh inhalation Q4H PRNQty: 1 0RF nicotine 21 mg/24 hr Patch 24 Hour 21 mg transdermal DAILY Qty: 30 0RF ipratropium-albuterol 0.5 mg-3 mg(2.5 mg base)/3 mL Solution For Nebulization 3 ml UPD Q6H PRN PRN (Reason: wheezing) Qty: 180 0RF Deep Sea Nasal 0.65 % Aerosol,[place] 2 spray NS QID PRN PRN (Reason: nasal congestion) Qty: 44 0RF torsemide 20 mg tablet 60 mg PO DAILY Qty: 90 3RF amoxicillin-pot clavulanate 875-125 mg tablet 1 tab PO BID Qty: 14 0RF buprenorphine-naloxone 8-2 mg Film 1 film BUCCAL DAILY buprenorphine-naloxone 12-3 mg Film 1 film BUCCAL DAILY isosorbide mononitrate 30 mg Tablet Extended Release 24 Hr 30 mg PO DAILY ranolazine 500 mg Tablet Extended Release 12 Hr 500 mg PO BID atorvastatin 80 mg tablet 80 mg PO DAILY Qty: 30 0RF pantoprazole [Protonix] 40 mg tablet,delayed release (DR/EC) 40 mg PO DAILY Qty: 30 0RF Medical Decision Making 52-year-old male presenting on [address] [place] [address] secondary to suicidal ideation, recent admission for [facility] Polysubstance abuse, using heroin, denies alcohol history, alcohol negative Active plan to slit his wrists Patient is alert, oriented, of decisional capacity, CBC is baseline for patient, CMP with mild hypokalemia 3.2 this is supplemented with 40 mEq of p.o. potassium Cardiac rate rhythm regular, alert and oriented x4, cranial nerves II through XII intact, ambulatory steady gait, no acute distress Case discussed with Betty Cummings, [facility] health screener who will evaluate the patient, CPSO and ordered Patient has been evaluated by Betty and patient will remain on voluntary status for placement, she is also establishing DINING ROOM ATTENDANT follow-up A single dose of Ativan was given for anxiety here care will be transitioned to [facility], HORSE RACE TIMER pending placement HPI General Date/Time Provider Initiated Documentation: 02/04/23 12:30 . HPI Narrative: This medically complex 52-year-old male presents with report of suicidal ideation with a plan to slit his wrist. He reportedly has been hospitalized on 2 occasions in the past several weeks for similar presentation. States he has significant anxiety and has been self-medicating with heroin. Last use was yesterday per patient. Related Data Home Medications Medication Instructions Recorded Confirmed atorvastatin 80 mg tablet 80 mg PO DAILY #30 tabs 01/06/22 01/19/23 isosorbide mononitrate 30 mg 30 mg PO DAILY 01/06/22 01/19/23 tablet,extended release 24 hr pantoprazole 40 mg tablet,delayed 40 mg PO DAILY #30 tabs 01/06/22 01/19/23 release (Protonix) ranolazine 500 mg tablet,extended 500 mg PO BID 01/06/22 01/19/23 release,12 hr citalopram 20 mg tablet 20 mg PO DAILY 06/14/22 01/19/23 albuterol sulfate 90 mcg/actuation 2 inh inhalation Q4H PRN #1 ea 06/17/22 01/19/23 breath activated powder inhaler nitroglycerin 0.4 mg sublingual 0.4 mg sublingual Q5-15M PRN chest 07/03/22 01/19/23 tablet pain #90 tabs ipratropium 0.5 mg-albuterol 3 mg 3 ml UPD Q6H PRN PRN wheezing #180 09/25/22 01/19/23 (2.5 mg base)/3 mL nebulization mL soln nicotine 21 mg/24 hr daily 21 mg transdermal DAILY #30 ea 09/25/22 01/19/23 transdermal patch sodium chloride 0.65 % nasal spray 2 spray NS QID PRN PRN nasal 09/25/22 01/19/23 aerosol (Deep Sea Nasal) congestion #44 mL torsemide 20 mg tablet 60 mg PO DAILY #90 tabs 09/25/22 01/19/23 Oxygen 10/05/22 01/06/23 acetaminophen 500 mg capsule 1,000 mg PO Q6H PRN 10/05/22 01/19/23 melatonin 10 mg capsule 10 mg PO HS PRN 10/05/22 01/19/23 multivitamin with iron-mineral 1 tab PO DAILY 10/05/22 01/19/23 (Super Multiple tablet) spironolactone 25 mg tablet 25 mg PO DAILY 10/05/22 01/19/23 trazodone 50 mg tablet 50 mg PO QHS PRN 10/05/22 01/06/23 folic acid 1 mg tablet 1,000 mcg PO DAILY 10/08/22 01/19/23 tiotropium 2.5 mcg-olodaterol 2.5 2 puff inhalation DAILY #4 grams 12/17/22 01/19/23 mcg/actuation mist for inhalation (Stiolto Respimat) azithromycin 250 mg tablet 250 mg PO DAILY #30 tabs 12/18/22 01/19/23 apixaban 5 mg tablet (Eliquis) 5 mg PO BID 12/22/22 01/19/23 buspirone 15 mg tablet 15 mg PO BID 12/22/22 01/19/23 fluticasone fur. 100 mcg-umeclid 1 inh inhalation DAILY 12/22/22 01/19/23 62.5 mcg-vilant 25 mcg inhalat.powder (Trelegy Ellipta) gabapentin 100 mg capsule 400 mg PO QID 12/22/22 01/19/23 losartan 25 mg tablet 25 mg PO DAILY 12/22/22 01/19/23 potassium chloride 20 mEq 20 meq PO DAILY 12/22/22 01/19/23 tablet,extended release(part/cryst) (Klor-Con M) amoxicillin 875 mg-potassium 1 tab PO BID #14 tabs 01/19/23 clavulanate 125 mg tablet buprenorphine 12 mg-naloxone 3 mg 1 film buccal DAILY 01/20/23 01/20/23 sublingual film buprenorphine 8 mg-naloxone 2 mg 1 film buccal DAILY 01/20/23 01/20/23 sublingual film amiodarone 100 mg tablet 100 mg PO DAILY #90 tabs 02/02/23 aspirin 81 mg tablet,delayed 81 mg PO DAILY #90 tabs 02/02/23 release Previous Rx's Medication Instructions Recorded atorvastatin 80 mg tablet 80 mg PO DAILY #30 tabs 01/06/22 pantoprazole 40 mg tablet,delayed 40 mg PO DAILY #30 tabs 01/06/22 release (Protonix) albuterol sulfate 90 mcg/actuation 2 inh inhalation Q4H PRN #1 ea 06/17/22 breath activated powder inhaler nitroglycerin 0.4 mg sublingual 0.4 mg sublingual Q5-15M PRN chest 07/03/22 tablet pain #90 tabs ipratropium 0.5 mg-albuterol 3 mg 3 ml UPD Q6H PRN PRN wheezing #180 09/25/22 (2.5 mg base)/3 mL nebulization mL soln nicotine 21 mg/24 hr daily 21 mg transdermal DAILY #30 ea 09/25/22 transdermal patch sodium chloride 0.65 % nasal spray 2 spray NS QID PRN PRN nasal 09/25/22 aerosol (Deep Sea Nasal) congestion #44 mL torsemide 20 mg tablet 60 mg PO DAILY #90 tabs 09/25/22 tiotropium 2.5 mcg-olodaterol 2.5 2 puff inhalation DAILY #4 grams 12/17/22 mcg/actuation mist for inhalation (Stiolto Respimat) azithromycin 250 mg tablet 250 mg PO DAILY #30 tabs 12/18/22 amoxicillin 875 mg-potassium 1 tab PO BID #14 tabs 01/19/23 clavulanate 125 mg tablet amiodarone 100 mg tablet 100 mg PO DAILY #90 tabs 02/02/23 aspirin 81 mg tablet,delayed 81 mg PO DAILY #90 tabs 02/02/23 release Allergies Allergy/AdvReac Type Severity Reaction Status Date / Time hydromorphone [From Dilaudid] Allergy Verified 01/19/23 07:01 General Stated Complaint: PsychEval GLADIS: 2 PFSH All Active Problems (Updated 01/19/23 @ 12:38 by Giovani Langley MD) Shortness of breath (Acute) Anxiety (Chronic) Dental infection (Acute) Pulmonary hypertension (Acute) Erectile dysfunction (Acute) On keno terminal operator drug therapy (Acute) History of Brittany's gangrene (Acute) Obesity, morbid, BMI 40.0-49.9 (Acute) Obesity hypoventilation syndrome (Chronic) Respiratory failure with hypoxia and hypercapnia (Acute) Diastolic heart failure (Acute) Anxiety (Acute) Cellulitis of leg, left (Acute) Angina pectoris (Chronic) GERD (gastroesophageal reflux disease) (Chronic) Depression (Chronic) Morbid obesity (Chronic) AICD (automatic cardioverter/defibrillator) present (Acute) placed at [facility] for ischemic dilated cardiomyopathy [employer] 01/27/21 RH HLD (hyperlipidemia) (Acute) ETOH abuse (Chronic) Drug dependence (Chronic) COPD (chronic obstructive pulmonary disease) (Chronic) Ischemic cardiomyopathy (Chronic) Afib (Chronic) Tobacco use disorder (Acute) Hx of hyperlipidemia (Acute) HTN (hypertension) (Chronic) CAD (coronary artery disease) (Chronic) Medical History Acute hypokalemia Acute non-ST elevation myocardial infarction (NSTEMI) Acute on chronic combined systolic (congestive) and diastolic (congestive) heart failure Acute on chronic heart failure with reduced ejection fraction and diastolic dysfunction Acute respiratory failure with hypoxia Acute respiratory failure with hypoxia and hypercapnia Alcohol use disorder, severe, dependence [facility] 01/21 Cardiac arrest CHF (congestive heart failure) CHF exacerbation Consolidation of left lower lobe of lung Dental infection Exertional chest pain Fluid overload Folliculitis Homelessness Hypercapnia Hypokalemia Lactic acidosis Left thigh pain Leukocytosis Medication monitoring encounter Multifocal pneumonia Pacemaker Pulmonary nodules Sepsis Somnolence Thrombocytosis Surgical History History of coronary artery stent placement History of hernia repair History of right knee joint replacement History of tonsillectomy Social History Smoking/Tobacco Use Status: Current every day Tobacco Type: cigarettes and e- cigarettes Smoking risk assessment performed?: Yes Alcohol Intake: former Year quit: 2020 Details: Former heavy alcohol use. Drug use: Occasionally Substance use type: heroin Housing: other Do you feel safe at home: Yes Do you feel safe in your relationship?: Yes Additional Social history: going through divorce, living in hotel Course Vital Signs Vital signs: Vital Signs Temperature 36.8 C 02/04/23 12:36 Pulse 83 02/04/23 12:36 Respiratory Rate 18 02/04/23 12:36 Blood Pressure 137/70 02/04/23 12:36 Pulse Oximetry 99 02/04/23 12:36 Temperature 36.8 C 02/04/23 12:36 Pulse 83 02/04/23 12:36 Respiratory Rate 18 02/04/23 12:36 Respiratory Effort Normal, Non-Labored 02/04/23 12:52 Blood Pressure 137/70 02/04/23 12:36 Blood Pressure Position Sitting 02/04/23 12:36 Pulse Oximetry 99 02/04/23 12:36 Oxygen Delivery Method Room Air 02/04/23 12:36 Oxygen Flow Rate 0 02/04/23 12:36 Lab/Test Results Lab/Test Results: Laboratory Tests Range/Units 02/04/23 02/04/23 13:10 13:10 WBC (4.4-10.8) 10^3/uL 10.31 RBC (4.36-5.78) 10^6/uL 4.03 L Hgb (13.5-17.5) g/dL 12.0 L Hct (40.0-50.0) % 36.1 L MCV (80-95) fL 90 MCH (27.0-33.0) pg 29.8 MCHC (32.0-36.0) % 33.2 RDW (11.8-14.1) % 13.9 Plt Count (130-400) 10^3/uL 449 H MPV (8.0-11.0) fL 8.4 Immature Gran % 0.3 Neutrophils % 54.3 Lymphocytes % 29.9 Monocytes % 11.0 Eosinophils % 3.5 Basophils % 1.0 Nucleated RBC % (0.0-0.3) % 0.0 Absolute Neutrophils (1.2-6.7) 10^3/uL 5.61 Absolute Lymphocytes (1.2-3.4) 10^3/uL 3.08 Absolute Monocytes (0.1-0.8) 10^3/uL 1.13 H Absolute Eosinophils (0.0-0.7) 10^3/uL 0.36 Absolute Basophils (0.0-0.2) 10^3/uL 0.10 Sodium (136-145) mmol/L 135 L Potassium (3.5-5.1) mmol/L 3.2 L Chloride (98-107) mmol/L 94 L Carbon Dioxide (21.0-32.0) mmol/L 37.2 H Anion Gap (3-11) mmol/L 3.8 BUN (7-18) mg/dL 9 Creatinine (0.70-1.30) mg/dL 0.9 Est GFR (CKD-EPI 2020) (mL/min/1.73m2) 101.49 Glucose (74-106) mg/dL 59 L Calcium (8.5-10.1) mg/dL 9.6 Total Bilirubin (0.2-1.0) mg/dL 0.3 AST (15-37) U/L 18 ALT (16-63) U/L 18 Alkaline Phosphatase (46-116) U/L 103 Total Protein (6.4-8.2) g/dL 7.5 Albumin (3.4-5.0) g/dL 3.1 L TSH (0.36-3.74) uIU/mL 0.84 Ethyl Alcohol (<10) mg/dL < 3.0
[2023-02-04] MEDS: Potassium Chloride 20 MEQ TABCR 40 MEQ PO (14:25)
[2023-02-04 14:56] LABS: *AMPHETAMINES SCREEN URINE Negative (Negative); *BARBITURATES SCREEN URINE Negative (Negative); *BENZODIAZEPINES SCREEN URINE Negative (Negative); Cannabinoids THC Negative (Negative); Cocaine Screen,Urine Negative (Negative); METHADONE URINE SCREEN Negative (Negative); OPIATES URINE SCREEN Negative (Negative); Tricyclic Antidepressants Negative (Negative)
--- NOTE | 2023-02-04 15:22 | CMSP_ITS ---
Date of service: 02/04/23 Time of Service: 15:22 Care Management Safety Plan Status Status: Voluntary Reason for Wait Reason for Wait: Inpatient Admission Safety Plan Safety Plan: CHIEF COMPLAINT: Pramod presents in the ED for heroin use and suicidal ideation with plan to slit his wrist. Pramod was recently psychiatrically hospitalized at [facility] for a similar complaint. He has a history of depression, anxiety, and suicidal thoughts. Pramod is evaluated by Betty, [facility] Crisis Screener, and found to meet criteria for a voluntary psychiatric hospitalization. Referrals are faxed to [facility], [facility], [facility]. Pramod will remain at [facility] and will be reassessed daily by [facility] until a bed is secured for him. CM will continue to follow. VOLUNTARY FOR INPATIENT PSYCHIATRIC STABILIZATION.? Patient is appropriate in all interactions since arriving at [facility]; Pt has demonstrated appropriate coping and communication skills, has articulated his or her needs and concerns and is fully engaged during staff interactions. Safety plan has been established with patient, and care team, to adhere to patient goals, identify restrictions based on behavioral status, address nutrition, and determine allowed personal belongings, tools for hygiene and personal care. Determine level of activity including ambulation, level of supervision, visitors, and determine privileges based on behaviors and level of engagement by pt. SAFETY PLAN: 1. Will remain on suicide precautions. In Paper Clothes. 2. Will remain under direct supervision of one-on-one staff at all times provided by CPSO, EXPERIMENTAL WELDER, RED HAT LINUX ENGINEER roller printing supervisor. 3. May have paper cups, plates, finger foods as well as a cardboard spoon with which to eat meals. 4. Follow [facility] Management of the Admitted Behavioral Health Patient policy. 5. Comfort bath system only, shower permitted at RN discretion. 6. No personal belongings-soft items permitted at RN discretion. 7. Visitors-none at this time. 8. Activities: soft cart items, television and other activities at RN discretion. 9.? Bathroom privileges with escort in the ED, available without limitation on Zone B. 10. Phone: contact limited to family at this time, via [employer] hospital phone at RN discretion. 11. Due to VOLUNTARY status, if patient wishes to leave [facility], staff will contact [facility] Crisis Screener ([phone]) and On-Call Healthcare Representative ([phone]) as soon as possible. In the event of elopement, notify [facility] Police ([phone]). Patient is currently voluntarily at [facility] and seeking inpatient admission when a bed becomes available. [facility] Frontline Motion Study Engineer will continue seeking placement. Please contact the Resources Representative Healthcare Representative ([phone]) and [facility] Angie is Worker ([phone]) for any needed changes in the Safety Plan. Safety plan has been provided to interdepartmental care team.
--- NOTE | 2023-02-04 15:22 | PDOC.CMSAFE ---
Date of service: 02/04/23 Time of Service: 15:22 Care Management Safety Plan Status Status: Voluntary Reason for Wait Reason for Wait: Inpatient Admission Safety Plan Safety Plan: CHIEF COMPLAINT: Pramod presents in the ED for heroin use and suicidal ideation with plan to slit his wrist. Pramod was recently psychiatrically hospitalized at [facility] for a similar complaint. He has a history of depression, anxiety, and suicidal thoughts. Pramod is evaluated by Betty, [facility] Crisis Screener, and found to meet criteria for a voluntary psychiatric hospitalization. Referrals are faxed to [facility], [facility], [facility] and [facility]. Pramod will remain at [facility] and will be reassessed daily by [facility] until a bed is secured for him. CM will continue to follow. VOLUNTARY FOR INPATIENT PSYCHIATRIC STABILIZATION.? Patient is appropriate in all interactions since arriving at [facility]; Pt has demonstrated appropriate coping and communication skills, has articulated his or her needs and concerns and is fully engaged during staff interactions. Safety plan has been established with patient, and care team, to adhere to patient goals, identify restrictions based on behavioral status, address nutrition, and determine allowed personal belongings, tools for hygiene and personal care. Determine level of activity including ambulation, level of supervision, visitors, and determine privileges based on behaviors and level of engagement by pt. SAFETY PLAN: 1. Will remain on suicide precautions. In Paper Clothes. 2. Will remain under direct supervision of one-on-one staff at all times provided by CPSO, RADIO STATION AUDIO ENGINEER, BASKET ASSEMBLER cosmetic account coordinator. 3. May have paper cups, plates, finger foods as well as a cardboard spoon with which to eat meals. 4. Follow [facility] Management of the Admitted Behavioral Health Patient policy. 5. Comfort bath system only, shower permitted at RN discretion. 6. No personal belongings-soft items permitted at RN discretion. 7. Visitors-none at this time. 8. Activities: soft cart items, television and other activities at RN discretion. 9.? Bathroom privileges with escort in the ED, available without limitation on Zone B. 10. Phone: contact limited to family at this time, via [employer] hospital phone at RN discretion. 11. Due to VOLUNTARY status, if patient wishes to leave [facility], staff will contact [facility] Crisis Screener ([phone]) and On-Call Conductor Freight ([phone]) as soon as possible. In the event of elopement, notify [facility] Police ([phone]). Patient is currently voluntarily at [facility] and seeking inpatient admission when a bed becomes available. [facility] Frontline Child Welfare Caseworker will continue seeking placement. Please contact the Head Porter Baggage Conductor Freight ([phone]) and [facility] Child Welfare Caseworker ([phone]) for any needed changes in the Safety Plan. Safety plan has been provided to interdepartmental care team.
--- NOTE | 2023-02-04 15:59 | W.EDPROG ---
Date of service: 02/04/23 Time of Service: 16:00 Medical Decision Making Care assumed from provider (SHERINE Marie) Please see their initial HPI, PE, and documentation. Discussed patient details and case and pending workup and disposition. Patient is hemodynamically stable, and alert and oriented. At the time of signout awaiting voluntary mental health placement. 1852: Spoke with Gerald Fuentes, they are requesting a EKG. Order placed. 2021: Informed by filter tender jelly that patient states Hydroxyzine does not work for me. Lorazepam 1 mg PO ordered. Patient remains calm and cooperative, sleeping, in line of sight of nurses station, sitter at . Care to be handed off to oncoming provider Dr. Baez pending MH placement. Medical Records Medical records reviewed: Yes I reviewed the patient's medical records. Lab Data Lab results reviewed: Yes I reviewed the patient's lab results. Labs: Laboratory Tests Range/Units 02/04/23 02/04/23 02/04/23 13:10 13:10 14:30 WBC (4.4-10.8) 10^3/uL 10.31 RBC (4.36-5.78) 10^6/uL 4.03 L Hgb (13.5-17.5) g/dL 12.0 L Hct (40.0-50.0) % 36.1 L MCV (80-95) fL 90 MCH (27.0-33.0) pg 29.8 MCHC (32.0-36.0) % 33.2 RDW (11.8-14.1) % 13.9 Plt Count (130-400) 10^3/uL 449 H MPV (8.0-11.0) fL 8.4 Immature Gran % 0.3 Neutrophils % 54.3 Lymphocytes % 29.9 Monocytes % 11.0 Eosinophils % 3.5 Basophils % 1.0 Nucleated RBC % (0.0-0.3) % 0.0 Absolute Neutrophils (1.2-6.7) 10^3/uL 5.61 Absolute Lymphocytes (1.2-3.4) 10^3/uL 3.08 Absolute Monocytes (0.1-0.8) 10^3/uL 1.13 H Absolute Eosinophils (0.0-0.7) 10^3/uL 0.36 Absolute Basophils (0.0-0.2) 10^3/uL 0.10 Sodium (136-145) mmol/L 135 L Potassium (3.5-5.1) mmol/L 3.2 L Chloride (98-107) mmol/L 94 L Carbon Dioxide (21.0-32.0) mmol/L 37.2 H Anion Gap (3-11) mmol/L 3.8 BUN (7-18) mg/dL 9 Creatinine (0.70-1.30) mg/dL 0.9 Est GFR (CKD-EPI 2020) (mL/min/1.73m2) 101.49 Glucose (74-106) mg/dL 59 L Calcium (8.5-10.1) mg/dL 9.6 Total Bilirubin (0.2-1.0) mg/dL 0.3 AST (15-37) U/L 18 ALT (16-63) U/L 18 Alkaline Phosphatase (46-116) U/L 103 Total Protein (6.4-8.2) g/dL 7.5 Albumin (3.4-5.0) g/dL 3.1 L TSH (0.36-3.74) uIU/mL 0.84 Urine Opiates Screen (Negative) Negative Urine Methadone Screen (Negative) Negative Ur Barbiturates Screen (Negative) Negative Ur Tricyclics Screen (Negative) Negative Ur Amphetamines Screen (Negative) Negative U Benzodiazepines Scrn (Negative) Negative Urine Cocaine Screen (Negative) Negative Ur THC Screen (Negative) Negative Ethyl Alcohol (<10) mg/dL < 3.0 Exam Narrative Exam Narrative: Constitutional: Alert and oriented x3. Appears stated age. Normal body habitus. Head: Normocephalic, no trauma. Eyes: Pupils PERRL, EOM's intact. Eyelids symmetrical without lesions, discharge, or swelling. Chest: RRR, Normal S1, S2, distal pulses intact. Resp: Lungs clear to auscultation bilaterally, no wheezes, rales, or rhonchi. Musculoskeletal: Normal gait, 5/5 strength to all four extremities. Skin: No suspicious rashes or lesions. Capillary refill less than 2 sec. Neurologic: Cranial nerves II-XII intact. Alert and oriented x 3. Motor: No deficits noted. Sensory: Intact bilaterally all 4 extremities. Psych Thought Content: suicidality Sign Out Sign Out Data: Sign Out Comment: pending voluntary placement Last updated by Mary Hankins PA at 02/04/23 15:45 Sign Out Comment: Pending Voluntary Mental Health placement. Here with SI, wants to slit wrists. Last updated by Jennifer Waldron NP at 02/04/23 22:19 Discharge Plan Discharge Details Chief Complaint: PsychEval Primary Care Provider: Gerri Silverman ED Provider: Jennifer Waldron Home Meds and New Rx's Prescriptions: No Action nitroglycerin 0.4 mg tablet, sublingual 0.4 mg sublingual Q5-15M PRN (Reason: chest pain) Qty: 90 3RF Rx Instructions: do not exceed 3 doses per episode folic acid 1 mg tablet 1,000 mcg PO DAILY Patient Comments: 10/07/22 per PCP prescribed as 1 mg daily RH azithromycin 250 mg tablet 250 mg PO DAILY Qty: 30 12RF Eliquis 5 mg tablet 5 mg PO BID potassium chloride [Klor-Con M20] 20 mEq tablet,ER particles/crystals 20 meq PO DAILY gabapentin 100 mg capsule 400 mg PO QID buspirone 15 mg tablet 15 mg PO BID losartan 25 mg tablet 25 mg PO DAILY Trelegy Ellipta 100-62.5-25 mcg blister with device 1 inh inhalation DAILY Patient Comments: 12/22/22 this is on med list from PCP office, not sure about dosing RH acetaminophen 500 mg capsule 1,000 mg PO Q6H PRN spironolactone 25 mg tablet 25 mg PO DAILY Super Multiple Tablet 1 tab PO DAILY melatonin 10 mg capsule 10 mg PO HS PRN trazodone 50 mg tablet 50 mg PO QHS PRN (DME) Oxygen Tank See Rx Instructions .Route Rx Instructions: 2-3L as needed Stiolto Respimat 2.5-2.5 mcg/actuation mist 2 puff inhalation DAILY Qty: 4 12RF aspirin 81 mg tablet,delayed release (DR/EC) 81 mg PO DAILY Qty: 90 3RF amiodarone 100 mg tablet 100 mg PO DAILY Qty: 90 3RF citalopram 20 mg Tablet 20 mg PO DAILY albuterol sulfate 90 mcg/actuation aerosol powdr breath activated 2 inh inhalation Q4H PRNQty: 1 0RF nicotine 21 mg/24 hr Patch 24 Hour 21 mg transdermal DAILY Qty: 30 0RF ipratropium-albuterol 0.5 mg-3 mg(2.5 mg base)/3 mL Solution For Nebulization 3 ml UPD Q6H PRN PRN (Reason: wheezing) Qty: 180 0RF Deep Sea Nasal 0.65 % Aerosol,[place] 2 spray NS QID PRN PRN (Reason: nasal congestion) Qty: 44 0RF torsemide 20 mg tablet 60 mg PO DAILY Qty: 90 3RF amoxicillin-pot clavulanate 875-125 mg tablet 1 tab PO BID Qty: 14 0RF buprenorphine-naloxone 8-2 mg Film 1 film BUCCAL DAILY buprenorphine-naloxone 12-3 mg Film 1 film BUCCAL DAILY isosorbide mononitrate 30 mg Tablet Extended Release 24 Hr 30 mg PO DAILY ranolazine 500 mg Tablet Extended Release 12 Hr 500 mg PO BID atorvastatin 80 mg tablet 80 mg PO DAILY Qty: 30 0RF pantoprazole [Protonix] 40 mg tablet,delayed release (DR/EC) 40 mg PO DAILY Qty: 30 0RF
--- NOTE | 2023-02-04 16:10 | PDOC.MHCN_ITS ---
Date of service: 02/04/23 Time of Service: 14:33 PHQ-9 Over the last 2 weeks, how often have you been bothered by any of the following problems? 1. Little interest or pleasure in doing things: nearly every day 2. Feeling down, depressed, or hopeless: nearly every day 3. Trouble falling or staying asleep, or sleeping too much: nearly every day 4. Feeling tired or having little energy: nearly every day 5. Poor appetite or overeating: nearly every day 6. Feeling bad about yourself - or that you are a failure or have let yourself and your family down: nearly every day 7. Trouble concentrating on things, such as reading the newspaper or watching television: nearly every day 8. Moving or speaking so slowly that other people could have noticed? - Or the opposite - being so fidgety or restless that you have been moving around a lot more than usual: nearly every day 9. Thoughts that you would be better off or of hurting yourself in some way: nearly every day Total score: 27 If you checked off any problems, how difficult have these problems made it for you to do your work, take care of things at home, or get along with other people?: extremely difficult Source: Developed by Drs. Juan José Jovel, Camryn Romero, Jose Bryant and colleagues, with an educational bertha from [employer]. Suicide Severity Rate CSSRS Have you wished you were or wished you could go to sleep and not wake up?: Yes Have you actually had any thoughts of killing yourself?: Yes CSSRS2 Have you been thinking about how you might do this?: Yes Have you had these thoughts and had some intention of acting on them?: Yes Have you started to work out or worked out the details of how to kill yourself? Do you intend to carry out this plan?: No CSSRS3 Have you ever done anything, started to do anything or prepared to do anything to end your life?: Yes CSSRS4 Was this within the past three months?: No Screening Score Total Score: 6 Screening: Positive Mental Health Emergency Note Release [facility] release signed:: Yes Reason for Visit The client is a well-established member of the adult outpatient program at [facility]. The client was assessed by ANDREA Arambula on 01/19 and was hospitalized at [facility]. The client presents to [facility] ED for increased suicidal ideations with intent to slit wrists. The client is seen via telehealth at [facility] ED. In the last 2 weeks has the pt presented for ES prior to today?: No Client Information Client is: Adult Outpatient Current Treatment Team if applicable First care merchandising team lead: Name: Pramod Brennan Role: Medication provider Contact Info: [phone] Non Suicidal Self Injury Current: No History: yes, Hx of overdosing on medications and NSSI on wrists via cutting. Safety Risk/Harm to Self or Others Current Ideation to Harm Self or Others: Yes to self. (Slit wrists with intent 02/09 if he were to leave the hospital) Intent: yes, has intent. Plan: yes,has a plan. History of suicide attempt: No history of suicide attempt reported Risk: Does risk to harm exist?: yes. Risk: High Risk Duty to warn indicated: No Asssessment/Mental Status Appearance: Disheveled Attitude: Cooperative Behavior: Unremarkable Speech: Normal Affect: Flat and Cogruent with mood Mood: Stressed, Depressed and Anxious Thought process: Unremarkable Hallucinations: No Delusions: No Attention: Unremarkable Perception: Not impaired Orientation: Fully orientated Memory: Intact Insight: Fair Judgement: Fair Neurovegetative Symptoms Sleep: Decrease (The client reports decrease in sleep stating that he has been getting only 2 hours at a time. ) Appetitie: Decrease (Client reports poor appetite) Interests: Decrease Energy: Decrease Libido: Not applicable Substance Use: Drug Issues: Other (The client report 2-3 bags of heroin daily. ) Do you use nicotine?: Yes Have you used substances in the last 7 days?: yes, Heroin daily to self-medicate per the client's report. Additional Issues: Assaultive/Threatening Behavior: No Medical Concerns: No Client engaged in active self harm w/weapon: No Threatening to run away: No Child reported abuse/neglect: No Voluntarily presenting for services: Yes Domestic violence is a concern: No Extreme Psychosis or extreme behavior is present: No Impression The client is a 52 year old, single, male who resides at the [facility] in [facility]. He is disabled due to a heart attack that happened a year ago. Prior to that however, he reported he was working three jobs, 7 days a week. The client presented to the ED due to ongoing complaints of anxiety that cause him panic and shortness of breath. He was seen at the ED a couple of weeks ago and was subsequently hospitalized at [facility]. He notes he has also used pain medications and Heroin to try to manage the symptoms in lieu of Ativan. He reported he cannot return home as he will act on his thoughts of suicide. He described that he is isolating more now and has a decrease in appetite, interests and energy and an increase in his need for sleep. The client is endorsing persistent suicidal ideations and self-reports risk of 10/10 if he is to be released from the hospital with plan to slit his wrists. The client scores a 27/27 on the PHQ-9 and answers yes to all of the CSSRS questions. The client is willing to stay at [facility] ED voluntary for treatment. Plan/Disposition Recommended Disposition: Hospitalization (Referrals will be faxed to All hospitals. ) facilities contacted. Plan: The client will remain at [facility] ED on voluntary status pending admission to either an inpatient facility or crisis bed. Client will be re-assessed by [facility] daily until placement is secured or he is able to be safety planned back to the community. This brief writer will also complete [employer] referral. Person reported agreement to plan: Yes Facilities contacted if Applicable [facility] Not accepted, (Send referral) No bed available [facility] Not accepted, Only accepting in house referrals [facility] Not accepted, Only accepting in house referrals, [facility] Not accepted, (Send referral) No bed available Reports/communication Outcome discussed with: ED/Personnel (Verbal passover given to ED provider Mary Guptachdemi. )
[2023-02-04] MEDS: hydrOXYzine HCL 25 MG TAB PO (17:53)
--- NOTE | 2023-02-04 18:45 | RT.EKG_ITS ---
APPROVED REPORT Exam: Resting ECG Reason for Exam: Cardiac History Patient Location: E HR:61 bpm ECG Measurements Heart Rate 61 AXIS UT 179 P 57 QRSd 113 QRS 51 QT 455 T 97 QTc 461 Conclusion Sinus rhythm...normal P axis, V-rate 60- 99 sinus rhtyhm normal axis, normal intervals, nonischemic
--- NOTE | 2023-02-04 23:35 | ED.PROG_ITS ---
Date of service: 02/04/23 Time of Service: 23:35 Medical Decision Making I received signout on this 52-year-old male in the emergency department voluntarily in the setting of thoughts of self-harm. He reportedly had a plan to slit his wrists. He is not a diabetic but his fingerstick blood glucose was slightly low at 59. We will repeat this along with a complete set of vital signs. Patient reportedly has not been adherent with his home medications and as result no medications have been ordered. No active behavioral issues last shift the patient did reportedly receive oral lorazepam at approximately 8 PM in the setting of anxiety. We will update documentation as clinically warranted and signed patient out to the oncoming daytime provider. 2:15 AM Patient had a reassuring repeat blood glucose. His repeat vitals are reassuring. He is feeling anxious for which he will received an additional 1 lo razepam. 3:43 AM Repeat vitals reassuring and all within normal limits. Fingerstick blood glucose mildly elevated 136. 6:08 AM No active behavioral issues last shift. I signed patient out to Dr. Suazo. Sign Out Sign Out Data: Sign Out Comment: pending voluntary placement Last updated by Mary Hankins PA at 02/04/23 15:45 Sign Out Comment: Pending Voluntary Mental Health placement. Here with SI, wants to slit wrists. Last updated by Jennifer Waldron NP at 02/04/23 22:19 Discharge Plan Discharge Details Chief Complaint: PsychEval Primary Care Provider: Gerri Silverman ED Provider: Oxana Suazo Home Meds and New Rx's Prescriptions: No Action nitroglycerin 0.4 mg tablet, sublingual 0.4 mg sublingual Q5-15M PRN (Reason: chest pain) Qty: 90 3RF Rx Instructions: do not exceed 3 doses per episode folic acid 1 mg tablet 1,000 mcg PO DAILY Patient Comments: 10/07/22 per PCP prescribed as 1 mg daily RH azithromycin 250 mg tablet 250 mg PO DAILY Qty: 30 12RF Eliquis 5 mg tablet 5 mg PO BID potassium chloride [Klor-Con M20] 20 mEq tablet,ER particles/crystals 20 meq PO DAILY gabapentin 100 mg capsule 400 mg PO QID buspirone 15 mg tablet 15 mg PO BID losartan 25 mg tablet 25 mg PO DAILY Trelegy Ellipta 100-62.5-25 mcg blister with device 1 inh inhalation DAILY Patient Comments: 12/22/22 this is on med list from PCP office, not sure about dosing RH acetaminophen 500 mg capsule 1,000 mg PO Q6H PRN spironolactone 25 mg tablet 25 mg PO DAILY Super Multiple Tablet 1 tab PO DAILY melatonin 10 mg capsule 10 mg PO HS PRN trazodone 50 mg tablet 50 mg PO QHS PRN (DME) Oxygen Tank See Rx Instructions .Route Rx Instructions: 2-3L as needed Stiolto Respimat 2.5-2.5 mcg/actuation mist 2 puff inhalation DAILY Qty: 4 12RF aspirin 81 mg tablet,delayed release (DR/EC) 81 mg PO DAILY Qty: 90 3RF amiodarone 100 mg tablet 100 mg PO DAILY Qty: 90 3RF citalopram 20 mg Tablet 20 mg PO DAILY albuterol sulfate 90 mcg/actuation aerosol powdr breath activated 2 inh inhalation Q4H PRNQty: 1 0RF nicotine 21 mg/24 hr Patch 24 Hour 21 mg transdermal DAILY Qty: 30 0RF ipratropium-albuterol 0.5 mg-3 mg(2.5 mg base)/3 mL Solution For Nebulization 3 ml UPD Q6H PRN PRN (Reason: wheezing) Qty: 180 0RF Deep Sea Nasal 0.65 % Aerosol,[place] 2 spray NS QID PRN PRN (Reason: nasal congestion) Qty: 44 0RF torsemide 20 mg tablet 60 mg PO DAILY Qty: 90 3RF amoxicillin-pot clavulanate 875-125 mg tablet 1 tab PO BID Qty: 14 0RF buprenorphine-naloxone 8-2 mg Film 1 film BUCCAL DAILY buprenorphine-naloxone 12-3 mg Film 1 film BUCCAL DAILY isosorbide mononitrate 30 mg Tablet Extended Release 24 Hr 30 mg PO DAILY ranolazine 500 mg Tablet Extended Release 12 Hr 500 mg PO BID atorvastatin 80 mg tablet 80 mg PO DAILY Qty: 30 0RF pantoprazole [Protonix] 40 mg tablet,delayed release (DR/EC) 40 mg PO DAILY Qty: 30 0RF
[2023-02-05 02:18] VITALS: BP 121/87; PULSE 67; RESP 16; O2SAT 95
[2023-02-05] MEDS: LORazepam 1 MG TAB PO ×3 (02:22→12:25)
--- NOTE | 2023-02-05 06:05 | W.EDPROG ---
Date of service: 02/05/23 Time of Service: 06:00 Medical Decision Making This patient was signed out to me. Please see previous notes for H&P and initial eval. In brief, 52yo male presenting voluntarily with SI, plan to cut his wrists. Multiple medical comorbititeis for which he is not currently taking medications, no active concerns at this time. Medically cleared, pending voluntary psychiatric placement. Patient confirms he does not use oxygen at home. Suboxone dose verified with SAMUEL and ordered here. [facility] with bed available; doc-to-doc completed with Dr. Dasha Garcia. Transferred via EMS. Sign Out Sign Out Data: Sign Out Comment: pending voluntary placement Last updated by Mary Hankins PA at 02/04/23 15:45 Sign Out Comment: Pending Voluntary Mental Health placement. Here with SI, wants to slit wrists. Last updated by Jennifer Waldron NP at 02/04/23 22:19 Discharge Plan Disposition Patient Disposition: Psychiatric Hospital/Unit Specific Psychiatric Facility: [facility] Condition: Stable Discharge Details Chief Complaint: PsychEval Clinical Impression: Suicidal ideation Primary Care Provider: Gerri Silverman ED Provider: Oxana Suazo Home Meds and New Rx's Prescriptions: Discontinued (DME) Oxygen Tank See Rx Instructions .Route Rx Instructions: 2-3L as needed No Action nitroglycerin 0.4 mg tablet, sublingual 0.4 mg sublingual Q5-15M PRN (Reason: chest pain) Qty: 90 3RF Rx Instructions: do not exceed 3 doses per episode folic acid 1 mg tablet 1,000 mcg PO DAILY Patient Comments: 10/07/22 per PCP prescribed as 1 mg daily RH azithromycin 250 mg tablet 250 mg PO DAILY Qty: 30 12RF Eliquis 5 mg tablet 5 mg PO BID potassium chloride [Klor-Con M20] 20 mEq tablet,ER particles/crystals 20 meq PO DAILY gabapentin 100 mg capsule 400 mg PO QID buspirone 15 mg tablet 15 mg PO BID losartan 25 mg tablet 25 mg PO DAILY Patient Comments: not taking Trelegy Ellipta 100-62.5-25 mcg blister with device 1 inh inhalation DAILY Patient Comments: 12/22/22 this is on med list from PCP office, not sure about dosing RH acetaminophen 500 mg capsule 1,000 mg PO Q6H PRN spironolactone 25 mg tablet 25 mg PO DAILY Super Multiple Tablet 1 tab PO DAILY melatonin 10 mg capsule 10 mg PO HS PRN trazodone 50 mg tablet 50 mg PO QHS PRN Stiolto Respimat 2.5-2.5 mcg/actuation mist 2 puff inhalation DAILY Qty: 4 12RF aspirin 81 mg tablet,delayed release (DR/EC) 81 mg PO DAILY Qty: 90 3RF amiodarone 100 mg tablet 100 mg PO DAILY Qty: 90 3RF citalopram 20 mg Tablet 20 mg PO DAILY Patient Comments: not taking albuterol sulfate 90 mcg/actuation aerosol powdr breath activated 2 inh inhalation Q4H PRNQty: 1 0RF nicotine 21 mg/24 hr Patch 24 Hour 21 mg transdermal DAILY Qty: 30 0RF Patient Comments: not taking ipratropium-albuterol 0.5 mg-3 mg(2.5 mg base)/3 mL Solution For Nebulization 3 ml UPD Q6H PRN PRN (Reason: wheezing) Qty: 180 0RF Deep Sea Nasal 0.65 % Aerosol,[place] 2 spray NS QID PRN PRN (Reason: nasal congestion) Qty: 44 0RF torsemide 20 mg tablet 60 mg PO DAILY Qty: 90 3RF Rx Instructions: 40 mg in am, 20 mg around 2p amoxicillin-pot clavulanate 875-125 mg tablet 1 tab PO BID Qty: 14 0RF Patient Comments: not taking buprenorphine-naloxone 8-2 mg Film 1 film BUCCAL DAILY buprenorphine-naloxone 12-3 mg Film 1 film BUCCAL DAILY polyethylene glycol 3350 17 gram Powder In Packet 17 g PO PRN PRN hydroxyzine HCl 10 mg Tablet 10 mg PO TID escitalopram oxalate 10 mg Tablet 10 mg PO DAILY isosorbide mononitrate 30 mg Tablet Extended Release 24 Hr 30 mg PO DAILY ranolazine 500 mg Tablet Extended Release 12 Hr 500 mg PO BID atorvastatin 80 mg tablet 80 mg PO DAILY Qty: 30 0RF pantoprazole [Protonix] 40 mg tablet,delayed release (DR/EC) 40 mg PO DAILY Qty: 30 0RF
--- NOTE | 2023-02-05 09:57 | PDOC.CMSAFE ---
Date of service: 02/05/23 Time of Service: 09:57 Care Management Safety Plan Status Status: Voluntary Reason for Wait Reason for Wait: Inpatient Admission Safety Plan Safety Plan: CHIEF COMPLAINT:? Pramod presents in the ED for heroin use and suicidal ideation with plan to slit his wrist.? Pramod was recently psychiatrically hospitalized at [facility] for a similar complaint.? He has a history of depression, anxiety, and suicidal thoughts.? Pramod is evaluated by Betty, [facility] Crisis Screener, and found to meet criteria for a voluntary psychiatric hospitalization.? Referrals are faxed to [facility], [facility], [facility] Pramod will remain at [facility] and will be reassessed daily by [facility] until a bed is secured for him.? CM will continue to follow. ? VOLUNTARY FOR INPATIENT PSYCHIATRIC STABILIZATION.? Patient is appropriate in all interactions since arriving at [facility]; Pt has demonstrated appropriate coping and communication skills, has articulated his or her needs and concerns and is fully engaged during staff interactions. Safety plan has been established with patient, and care team, to adhere to patient goals, identify restrictions based on behavioral status, address nutrition, and determine allowed personal belongings, tools for hygiene and personal care. Determine level of activity including ambulation, level of supervision, visitors, and determine privileges based on behaviors and level of engagement by pt. SAFETY PLAN: 1. Will remain on suicide precautions. In Paper Clothes. 2. Will remain under direct supervision of one-on-one staff at all times provided by [employer], EVENT SPECIALIST PRODUCT DEMONSTRATOR, ACID CONCENTRATOR cigar sorter. 3. May have paper cups, plates, finger foods as well as a cardboard spoon with which to eat meals. 4. Follow [facility] Management of the Admitted Behavioral Health Patient policy. 5. Comfort bath system only, shower permitted at RN discretion. 6. No personal belongings-soft items permitted at RN discretion. 7. Visitors-none at this time. 8. Activities: soft cart items, television and other activities at RN discretion. 9.? Bathroom privileges with escort in the ED, available without limitation on Zone B. 10. Phone: contact limited to family at this time, via [employer] hospital phone at RN discretion. 11. Due to VOLUNTARY status, if patient wishes to leave [facility], staff will contact [facility] Crisis Screener ([phone]) and On-Call Vertical Mill Operator ([phone]) as soon as possible. In the event of elopement, notify [facility] Police ([phone]). Patient is currently voluntarily at [facility] and seeking inpatient admission when a bed becomes available. [facility] Frontline Supervisor Stitching Department will continue seeking placement. Please contact the Biophysics Teacher Vertical Mill Operator ([phone]) and [facility] Supervisor Stitching Department ([phone]) for any needed changes in the Safety Plan. Safety plan has been provided to interdepartmental care team.
[2023-02-05] MEDS: Buprenorphine/Naloxone 8 mg/2 mg FILM 1 EACH SL (11:40)
[2023-02-05] MEDS: Buprenorphine/Naloxone 12 mg/3 mg FILM 1 EACH SL (11:40)
[2023-02-05] MEDS: Nicotine 21 MG/24 HR PATCH TD (11:52)
[2023-02-05 13:00] VITALS: BP 128/80; PULSE 78; RESP 20; TEMP 36.8; O2SAT 98
== END 2023-02-05 12:53 ==
PROVIDERS: Physician Assistant; Emergency Provider Student in an Organized Health Care Education/Training Program; PCP Nurse Practitioner Family
DX: R45.851 Suicidal ideations (principal)
CPT/HCPCS: 80053; 80307; 93005; 99285; 80320; 84443; 85025; 93010

== ENCOUNTER 2023-02-15 07:33 | Emergency (ER) | payer MEDICAID, SELFPAY ==
[2023-02-15] VITALS (71 sets, daily range): BP systolic 65–129; BP diastolic 21–67; PULSE 52–88; RESP 9–20; TEMP 36.5; O2SAT 90–98
--- NOTE | 2023-02-15 07:30 | DI.RAD_ITS ---
Exam(s) XR PORTABLE CHEST AP EXAM: XR PORTABLE CHEST AP CLINICAL HISTORY: shortness of breath TECHNIQUE: 2D digital imaging was performed of the chest. One image was obtained. An AP view was ob tained. COMPARISON: CR XR PORTABLE CHEST AP from 09/18/2022 CR XR PORTABLE CHEST AP from 01/19/2023 FINDINGS: MEDIASTINUM: Normal. HEART: Normal. The pacing device leads are in stable position. PULMONARY VASCULATURE: Normal. LUNGS: Clear. PLEURAL SPACE: No pleural effusion or pneumothorax. BONE:Within normal limits for the patient's age. OTHER FINDINGS:Normal. IMPRESSION: No acute pulmonary findings. DATA REPOSITORY: RADIATION DOSE DELIVERED:
--- NOTE | 2023-02-15 07:30 | RT.EKG_ITS ---
APPROVED REPORT Exam: Resting ECG Reason for Exam: Chest Pain Patient Location: E HR:84 bpm ECG Measurements Heart Rate 84 AXIS MI 186 P 50 QRSd 98 QRS 40 QT 397 T 107 QTc [address]ressions V3- V6
[2023-02-15] MEDS: LORazepam 1 MG TAB PO (07:44)
[2023-02-15] MEDS: Aspirin 81 MG CHEW 324 MG CH (07:45)
[2023-02-15] MEDS: nitroGLYcerin 0.4 MG TAB SL ×2 (07:46→08:03)
[2023-02-15 08:00] LABS: Abs Immature Grans 0.02 10^3/uL (0.0-0.06); Absolute Basophil Count 0.08 10^3/uL (0.0-0.2); Absolute Eosinophil Count 0.48 10^3/uL (0.0-0.7); Absolute Lymphocyte Count 1.63 10^3/uL (1.2-3.4); Absolute Monocyte Count 0.56 10^3/uL (0.1-0.8); Absolute Neutrophil Count 5.68 10^3/uL (1.2-6.7); Basophils % 0.9; Eosinophils % 5.7; HCT 37.5 % (40.0-50.0); HGB 12.5 g/dL (13.5-17.5); Immature Grans % 0.2; Lymphocytes % 19.3; MCH 30.3 pg (27.0-33.0); MCHC 33.3 % (32.0-36.0); MCV 91 fL (80-95); MPV 9.2 fL (8.0-11.0); Monocytes % 6.6; Neutrophils % 67.3; Platelet Count 438 10^3/uL (130-400); RBC 4.12 10^6/uL (4.36-5.78); RDW-SD 46.8 fL; WBC 8.45 10^3/uL (4.4-10.8)
--- NOTE | 2023-02-15 08:00 | RT.EKG_ITS ---
APPROVED REPORT Exam: Resting ECG Reason for Exam: chest pain Patient Location: E HR:67 bpm ECG Measurements Heart Rate 67 AXIS SC 180 P 51 QRSd 106 QRS 22 QT 459 T 67 QTc 485 Conclusion Sinus rhythm...normal P axis, V-rate 60- 99 Inferior infarct, old...Q >35mS, II III aVF I have reviewed and interpreted ECG and agree with software generated interpretation.
[2023-02-15 08:08] LABS: INR 1.1 (0.9-1.1); Prothrombin Time 11.4 sec (9.1-11.1)
[2023-02-15 08:18] LABS: ALT 17 U/L (16-63); AST 17 U/L (15-37); Albumin 3.4 g/dL (3.4-5.0); Alkaline Phosphatase 103 U/L (46-116); Anion Gap 2.6 mmol/L (3-11); BUN 18 mg/dL (7-18); Bilirubin, Total 0.4 mg/dL (0.2-1.0); CO2 36.4 mmol/L (21.0-32.0); Calcium 9.5 mg/dL (8.5-10.1); Chloride 97 mmol/L (98-107); Estimated GFR 89.44 (mL/min/1.73m2); Glucose 130 mg/dL (74-106); NT-proBNP 862 pg/mL (<300); Potassium 3.8 mmol/L (3.5-5.1); Sodium 136 mmol/L (136-145); Total Protein 7.8 g/dL (6.4-8.2); Troponin I < 50 ng/L (<or=60)
--- NOTE | 2023-02-15 08:42 | ED.GENADUL_ITS ---
Discharge Plan Disposition Patient Disposition: Home Discharge Details Clinical Impression: Shortness of breath, Anxiety, Drug dependence, CAD (coronary artery disease) Primary Care Provider: Gerri Silverman ED Provider: David Frederick Home Meds and New Rx's Prescriptions: No Action nitroglycerin 0.4 mg tablet, sublingual 0.4 mg sublingual Q5-15M PRN (Reason: chest pain) Qty: 90 3RF Rx Instructions: do not exceed 3 doses per episode folic acid 1 mg tablet 1,000 mcg PO DAILY Patient Comments: 10/07/22 per PCP prescribed as 1 mg daily RH azithromycin 250 mg tablet 250 mg PO DAILY Qty: 30 12RF Eliquis 5 mg tablet 5 mg PO BID gabapentin 100 mg capsule 400 mg PO QID buspirone 15 mg tablet 15 mg PO TID acetaminophen 500 mg capsule 1,000 mg PO Q6H PRN spironolactone 25 mg tablet 25 mg PO DAILY Super Multiple Tablet 1 tab PO DAILY melatonin 10 mg capsule 10 mg PO HS PRN Stiolto Respimat 2.5-2.5 mcg/actuation mist 2 puff inhalation DAILY Qty: 4 12RF aspirin 81 mg tablet,delayed release (DR/EC) 81 mg PO DAILY Qty: 90 3RF amiodarone 100 mg tablet 100 mg PO DAILY Qty: 90 3RF albuterol sulfate 90 mcg/actuation aerosol powdr breath activated 2 inh inhalation Q4H PRNQty: 1 0RF ipratropium-albuterol 0.5 mg-3 mg(2.5 mg base)/3 mL Solution For Nebulization 3 ml UPD Q6H PRN PRN (Reason: wheezing) Qty: 180 0RF torsemide 20 mg tablet 60 mg PO DAILY Qty: 90 3RF Rx Instructions: 40 mg in am, 20 mg around 2p buprenorphine-naloxone 8-2 mg Film 1 film BUCCAL DAILY polyethylene glycol 3350 17 gram Powder In Packet 17 g PO PRN PRN hydroxyzine HCl 10 mg Tablet 10 mg PO TID escitalopram oxalate 10 mg Tablet 10 mg PO DAILY isosorbide mononitrate 30 mg Tablet Extended Release 24 Hr 30 mg PO DAILY ranolazine 500 mg Tablet Extended Release 12 Hr 500 mg PO BID atorvastatin 80 mg tablet 80 mg PO DAILY Qty: 30 0RF pantoprazole [Protonix] 40 mg tablet,delayed release (DR/EC) 40 mg PO DAILY Qty: 30 0RF Discharge Instructions Additional Instructions: Please refrain from using heroin. Take your medications as prescribed. If you continue to have chest pain or shortness of breath, return to the emergency department. Otherwise follow-up with your primary care provider Medical Decision Making Emergent evaluation of difficulty breathing. Initial differential includes ACS, electrolyte derangement, cardiac dysrhythmia, anxiety. Initial EKG without acute ischemic ST segment changes. It is an abnormal EKG. He has multiple risk factors. Plan for serial cardiac biomarkers, telemetry monitoring, repeat EKG. Will give medications including aspirin, nitro and Ativan. 830: Patient received nitroglycerin and Ativan, his blood pressure has dropped slightly. He does report that he is feeling slightly better. His repeat EKG does not demonstrate concerning dynamic changes. We will continue to monitor closely. 0840: BNP is slightly elevated compared to prior and this is not a significant elevation for this patient. 0930: Patient blood pressure is still low. He is mentating appropriately and denying any symptoms. Reviewed his chest x-ray, I have independently interpreted: He has cardiomegaly, AICD. No pleural effusion or significant pulmonary edema 1125: The repeat troponin is negative. I went to evaluate the patient and he is asymptomatic. His blood pressure is still slightly low. I believe that his blood pressure is low due to the medications given and the drugs taken prior to arrival. I do not suspect shock or sepsis. He endorsed to me that he has been staying at a hotel in [facility] and is concerned about the substance use in that hotel. He states that he has an addictive personality and that he is concerned he is going to get pulled back into this. He does admit now that he was snorting heroin. He states that he is symptoms started when he took Suboxone this morning and that he was scared. At this time I feel his symptoms are more likely due to anxiety and substance use. Although the patient has multiple risk factors, I have a lower suspicion for an acute coronary issue at this time. I asked the patient if he would like case management resources but he declined. He would like to be discharged. I feel he is stable for discharge. All questions answered. Medical Records Medical records reviewed: Yes I reviewed the patient's medical records. Imaging Data Radiologic Study: Attestation: I personally reviewed and interpreted this imaging study as follows: Imaging: X-Ray My impression: No focal consolidation, enlarged heart size, no pulmonary edema or pleural effusion, AICD present Lab Data Lab results reviewed: Yes I reviewed the patient's lab results. ECG Data Attestation: I personally reviewed and interpreted this ECG (s) as follows: Prior ECG tracings: available for review Interpretation: Sinus, 84, ST segment depressions noted, compared to prior, no significant change HPI General Date/Time Provider Initiated Documentation: 02/15/23 07:37 . Limitations to Documentation: no limitations . Information obtained by: patient . HPI Narrative: 52-year-old gentleman with past medical history of obesity, cardiomyopathy, hy pertension, CAD (stents), AICD presents for evaluation of difficulty breathing. He reports acute onset of symptoms this morning. Onset occurred at rest. Reports that he just feels like he cannot take a deep breath. He reports discomfort, but no significant chest pain. He reports that the symptoms are similar to panic attacks as well as to prior heart attacks. He states that he did not have access to his Ativan so he did not try to take this this morning. He did not take a baby aspirin. He denies any sick symptoms, febrile illness, fever. No abdominal pain. No lower extremity swelling. Patient has been otherwise compliant with his medications. Related Data Home Medications Medication Instructions Recorded Confirmed atorvastatin 80 mg tablet 80 mg PO DAILY #30 tabs 01/06/22 02/15/23 isosorbide mononitrate 30 mg 30 mg PO DAILY 01/06/22 02/15/23 tablet,extended release 24 hr pantoprazole 40 mg tablet,delayed 40 mg PO DAILY #30 tabs 01/06/22 02/15/23 release (Protonix) ranolazine 500 mg tablet,extended 500 mg PO BID 01/06/22 02/15/23 release,12 hr albuterol sulfate 90 mcg/actuation 2 inh inhalation Q4H PRN #1 ea 06/17/22 02/15/23 breath activated powder inhaler nitroglycerin 0.4 mg sublingual 0.4 mg sublingual Q5-15M PRN chest 07/03/22 02/15/23 tablet pain #90 tabs ipratropium 0.5 mg-albuterol 3 mg 3 ml UPD Q6H PRN PRN wheezing #180 09/25/22 02/15/23 (2.5 mg base)/3 mL nebulization mL soln torsemide 20 mg tablet 60 mg (3 x 20 mg) PO DAILY #90 tabs 09/25/22 02/15/23 acetaminophen 500 mg capsule 1,000 mg PO Q6H PRN 10/05/22 02/15/23 melatonin 10 mg capsule 10 mg PO HS PRN 10/05/22 02/15/23 multivitamin with iron-mineral 1 tab PO DAILY 10/05/22 02/15/23 (Super Multiple tablet) spironolactone 25 mg tablet 25 mg PO DAILY 10/05/22 02/15/23 folic acid 1 mg tablet 1,000 mcg PO DAILY 10/08/22 02/15/23 tiotropium 2.5 mcg-olodaterol 2.5 2 puff inhalation DAILY #4 grams 12/17/22 02/15/23 mcg/actuation mist for inhalation (Stiolto Respimat) azithromycin 250 mg tablet 250 mg PO DAILY #30 tabs 12/18/22 02/15/23 apixaban 5 mg tablet (Eliquis) 5 mg PO BID 12/22/22 02/15/23 buspirone 15 mg tablet 15 mg PO TID 12/22/22 02/15/23 gabapentin 100 mg capsule 400 mg PO QID 12/22/22 02/15/23 buprenorphine 8 mg-naloxone 2 mg 1 film buccal DAILY 01/20/23 02/15/23 sublingual film amiodarone 100 mg tablet 100 mg PO DAILY #90 tabs 02/02/23 02/15/23 aspirin 81 mg tablet,delayed 81 mg PO DAILY #90 tabs 02/02/23 02/15/23 release escitalopram oxalate 10 mg tablet 10 mg PO DAILY 02/05/23 02/15/23 hydroxyzine HCl 10 mg tablet 10 mg PO TID 02/05/23 02/15/23 polyethylene glycol 3350 17 gram 17 g PO PRN PRN 02/05/23 02/15/23 oral powder packet Previous Rx's Medication Instructions Recorded atorvastatin 80 mg tablet 80 mg PO DAILY #30 tabs 01/06/22 pantoprazole 40 mg tablet,delayed 40 mg PO DAILY #30 tabs 01/06/22 release (Protonix) albuterol sulfate 90 mcg/actuation 2 inh inhalation Q4H PRN #1 ea 06/17/22 breath activated powder inhaler nitroglycerin 0.4 mg sublingual 0.4 mg sublingual Q5-15M PRN chest 07/03/22 tablet pain #90 tabs ipratropium 0.5 mg-albuterol 3 mg 3 ml UPD Q6H PRN PRN wheezing #180 09/25/22 (2.5 mg base)/3 mL nebulization mL soln torsemide 20 mg tablet 60 mg (3 x 20 mg) PO DAILY #90 tabs 09/25/22 tiotropium 2.5 mcg-olodaterol 2.5 2 puff inhalation DAILY #4 grams 12/17/22 mcg/actuation mist for inhalation (Stiolto Respimat) azithromycin 250 mg tablet 250 mg PO DAILY #30 tabs 12/18/22 amiodarone 100 mg tablet 100 mg PO DAILY #90 tabs 02/02/23 aspirin 81 mg tablet,delayed 81 mg PO DAILY #90 tabs 02/02/23 release Allergies Allergy/AdvReac Type Severity Reaction Status Date / Time hydromorphone [From Dilaudid] Allergy Verified 02/15/23 08:01 General Stated Complaint: Chest Pain GLADIS: 2 PFSH All Active Problems (Updated 02/15/23 @ 11:29 by David Frederick MD) Shortness of breath (Acute) Suicidal ideation (Acute) Dental infection (Acute) Anxiety (Chronic) Pulmonary hypertension (Acute) Erectile dysfunction (Acute) On [facility] drug therapy (Acute) History of Brittany's gangrene (Acute) Obesity, morbid, BMI 40.0-49.9 (Acute) Obesity hypoventilation syndrome (Chronic) Respiratory failure with hypoxia and hypercapnia (Acute) Diastolic heart failure (Acute) Anxiety (Acute) Cellulitis of leg, left (Acute) Angina pectoris (Chronic) GERD (gastroesophageal reflux disease) (Chronic) Depression (Chronic) Morbid obesity (Chronic) AICD (automatic cardioverter/defibrillator) present (Acute) placed at [facility] for ischemic dilated cardiomyopathy Sruthi Robles DR 01/27/21 HLD (hyperlipidemia) (Acute) ETOH abuse (Chronic) Drug dependence (Chronic) COPD (chronic obstructive pulmonary disease) (Chronic) Ischemic cardiomyopathy (Chronic) Afib (Chronic) Tobacco use disorder (Acute) Hx of hyperlipidemia (Acute) HTN (hypertension) (Chronic) CAD (coronary artery disease) (Chronic) Medical History Hypercapnia Acute non-ST elevation myocardial infarction (NSTEMI) Folliculitis Fluid overload Acute hypokalemia Acute respiratory failure with hypoxia and hypercapnia Acute on chronic combined systolic (congestive) and diastolic (congestive) heart failure Sepsis Left thigh pain Multifocal pneumonia Acute respiratory failure with hypoxia Hypokalemia Lactic acidosis Thrombocytosis Leukocytosis CHF exacerbation Consolidation of left lower lobe of lung Medication monitoring encounter Pulmonary nodules Acute on chronic heart failure with reduced ejection fraction and diastolic dysfunction Somnolence Alcohol use disorder, severe, dependence [facility] 01/21 Dental infection Exertional chest pain Homelessness CHF (congestive heart failure) Pacemaker Cardiac arrest Surgical History History of coronary artery stent placement History of tonsillectomy History of hernia repair History of right knee joint replacement Social History Smoking/Tobacco Use Status: Current every day Tobacco Type: cigarettes and e- cigarettes Smoking risk assessment performed?: Yes Alcohol Intake: former Year quit: 2020 Details: Former heavy alcohol use. Drug use: Occasionally Substance use type: heroin Housing: other Do you feel safe at home: Yes Do you feel safe in your relationship?: Yes Additional Social history: going through divorce, living in hotel Exam Narrative Exam Narrative: Review of Systems: All systems reviewed & are unremarkable except as noted in HPI and below Exam: Const: Mild distress, anxious, obese HEENT: NACT / Eyes: PERRL, no conjunctival injection, and symmetrical lids / EA RS Atraumatic external nose and ears / MOUTH Moist MM / NECK: Symmetric, trachea midline, No thyromegaly / THROAT oropharynx clear CVS: AICD scar noted, RRR, No murmurs or gallops. Peripheral pulses 2+ and equal in all extremities. Brisk capillary refill in all extremities. RESP: Unlabored respiratory effort, Clear to auscultation bilaterally. No wheezes rales or rhonchi GI: Soft, Nontender/Nondistended, No hepatosplenomegaly. No guarding or rebound. MSK: Extremities w/o deformity or TTP, No cyanosis or clubbing, full range of motion Skin: Warm, Dry. No rashes or lesions. Neuro: extruder II-XII grossly intact. Sensation grossly intact, no focal neurologic deficits. Psych: (AAO) x3. Course Vital Signs Vital signs: Vital Signs Temperature 36.5 C 02/15/23 07:34 Pulse 76 02/15/23 07:34 Respiratory Rate 20 02/15/23 07:34 Blood Pressure 112/43 L 02/15/23 07:34 Pulse Oximetry 97 02/15/23 07:34 Temperature 36.5 C 02/15/23 07:34 Temperature Source Skin 02/15/23 07:34 Pulse 78 02/15/23 07:43 Respiratory Rate 18 02/15/23 08:09 Respiratory Effort Normal, Non-Labored 02/15/23 08:09 Respiratory Depth Normal 02/15/23 08:09 Respiratory Pattern Normal 02/15/23 08:09 Blood Pressure 113/57 L 02/15/23 07:43 Blood Pressure Position Sitting 02/15/23 07:34 Pulse Oximetry 96 02/15/23 07:43 Oxygen Delivery Method Room Air 02/15/23 07:43 Oxygen Flow Rate 0 02/15/23 07:43 Pain Level 5 02/15/23 08:03 Lab/Test Results Lab/Test Results: Laboratory Tests Range/Units 02/15/23 07:54 WBC (4.4-10.8) 10^3/uL 8.45 RBC (4.36-5.78) 10^6/uL 4.12 L Hgb (13.5-17.5) g/dL 12.5 L Hct (40.0-50.0) % 37.5 L MCV (80-95) fL 91 MCH (27.0-33.0) pg 30.3 MCHC (32.0-36.0) % 33.3 RDW (11.8-14.1) % 14.0 Plt Count (130-400) 10^3/uL 438 H MPV (8.0-11.0) fL 9.2 Immature Gran % 0.2 Neutrophils % 67.3 Lymphocytes % 19.3 Monocytes % 6.6 Eosinophils % 5.7 Basophils % 0.9 Nucleated RBC % (0.0-0.3) % 0.0 Absolute Neutrophils (1.2-6.7) 10^3/uL 5.68 Absolute Lymphocytes (1.2-3.4) 10^3/uL 1.63 Absolute Monocytes (0.1-0.8) 10^3/uL 0.56 Absolute Eosinophils (0.0-0.7) 10^3/uL 0.48 Absolute Basophils (0.0-0.2) 10^3/uL 0.08 PT (9.1-11.1) sec 11.4 H INR (0.9-1.1) 1.1 Sodium (136-145) mmol/L 136 Potassium (3.5-5.1) mmol/L 3.8 Chloride (98-107) mmol/L 97 L Carbon Dioxide (21.0-32.0) mmol/L 36.4 H Anion Gap (3-11) mmol/L 2.6 L BUN (7-18) mg/dL 18 Creatinine (0.70-1.30) mg/dL 1.0 Est GFR (CKD-EPI 2020) (mL/min/1.73m2) 89.44 Glucose (74-106) mg/dL 130 H Calcium (8.5-10.1) mg/dL 9.5 Magnesium (1.8-2.4) mg/dL 2.0 Total Bilirubin (0.2-1.0) mg/dL 0.4 AST (15-37) U/L 17 ALT (16-63) U/L 17 Alkaline Phosphatase (46-116) U/L 103 Troponin I (<or=60) ng/L < 50 NT-Pro-B Natriuret Pep (<300) pg/mL 862 H Total Protein (6.4-8.2) g/dL 7.8 Albumin (3.4-5.0) g/dL 3.4
[2023-02-15 11:21] LABS: Troponin I < 50 ng/L (<or=60)
== END 2023-02-15 11:40 | disposition home or self-care (01) ==
PROVIDERS: Emergency Provider Emergency Medicine; PCP Nurse Practitioner Family
DX: R06.02 Shortness of breath (principal); F41.9 Anxiety disorder, unspecified; I25.10 Atherosclerotic heart disease of native coronary artery without angina pectoris; F19.90 Other psychoactive substance use, unspecified, uncomplicated
CPT/HCPCS: 36415; 80053; 93005; 99283; 71045; 83735; 83880; 84484; 85025; 85610; 93010

== ENCOUNTER 2023-02-26 13:51 | Emergency (ER) | payer MEDICAID, SELFPAY ==
[2023-02-26 13:58] VITALS: BP 150/72; PULSE 75; RESP 20; TEMP 36.8; O2SAT 97
--- NOTE | 2023-02-26 14:00 | RT.EKG_ITS ---
APPROVED REPORT Exam: Resting ECG Reason for Exam: SOB Patient Location: E HR:67 bpm ECG Measurements Heart Rate 67 AXIS MO 177 P 45 QRSd 104 QRS 21 QT 419 T 88 QTc 444 Conclusion Sinus rhythm...normal P axis, V-rate 60- 99 Inferior infarct, old...Q >35mS, II III aVF Probable anterolateral infarct, old...Q>35mS, abnrm ST-T, V2-V6,I,aVL No change vs 02/15/23
--- NOTE | 2023-02-26 14:15 | DI.RAD_ITS ---
Exam(s) XR PORTABLE CHEST AP EXAM: XR PORTABLE CHEST AP CLINICAL HISTORY: SOB, anxiety TECHNIQUE: 2D digital imaging was performed. COMPARISON: CR XR PORTABLE CHEST AP from 01/19/2023 CR XR PORTABLE CHEST AP from 02/15/2023 FINDINGS: Under penetration at the lung bases. LUNGS: Clear. No pleural abnormality seen. HEART: Mildly enlarged. Pacemaker. Coronary artery stent AORTA: Normal diameter. BONES: Unremarkable for age. Soft tissues: Unremarkable. IMPRESSION: No acute findings. DATA REPOSITORY: RADIATION DOSE DELIVERED:
--- NOTE | 2023-02-26 14:16 | ED.GENADUL_ITS ---
Discharge Plan Disposition Patient Disposition: Home Discharge Details Clinical Impression: Anxiety Primary Care Provider: Gerri Silverman ED Provider: Brittany Caro Home Meds and New Rx's Prescriptions: New hydroxyzine HCl 50 mg tablet 50 mg PO TID PRN (Reason: anxiety) Qty: 30 0RF Continued nitroglycerin 0.4 mg tablet, sublingual 0.4 mg sublingual Q5-15M PRN (Reason: chest pain) Qty: 90 3RF Rx Instructions: do not exceed 3 doses per episode folic acid 1 mg tablet 1,000 mcg PO DAILY Patient Comments: 10/07/22 per PCP prescribed as 1 mg daily RH azithromycin 250 mg tablet 250 mg PO DAILY Qty: 30 12RF Eliquis 5 mg tablet 5 mg PO BID gabapentin 100 mg capsule 400 mg PO QID buspirone 15 mg tablet 15 mg PO TID acetaminophen 500 mg capsule 1,000 mg PO Q6H PRN spironolactone 25 mg tablet 25 mg PO DAILY Super Multiple Tablet 1 tab PO DAILY melatonin 10 mg capsule 10 mg PO HS PRN Stiolto Respimat 2.5-2.5 mcg/actuation mist 2 puff inhalation DAILY Qty: 4 12RF aspirin 81 mg tablet,delayed release (DR/EC) 81 mg PO DAILY Qty: 90 3RF amiodarone 100 mg tablet 100 mg PO DAILY Qty: 90 3RF albuterol sulfate 90 mcg/actuation aerosol powdr breath activated 2 inh inhalation Q4H PRNQty: 1 0RF ipratropium-albuterol 0.5 mg-3 mg(2.5 mg base)/3 mL Solution For Nebulization 3 ml UPD Q6H PRN PRN (Reason: wheezing) Qty: 180 0RF torsemide 20 mg tablet 60 mg PO DAILY Qty: 90 3RF Rx Instructions: 40 mg in am, 20 mg around 2p buprenorphine-naloxone 8-2 mg Film 1 film BUCCAL DAILY polyethylene glycol 3350 17 gram Powder In Packet 17 g PO PRN PRN hydroxyzine HCl 10 mg Tablet 10 mg PO TID escitalopram oxalate 10 mg Tablet 10 mg PO DAILY isosorbide mononitrate 30 mg Tablet Extended Release 24 Hr 30 mg PO DAILY ranolazine 500 mg Tablet Extended Release 12 Hr 500 mg PO BID atorvastatin 80 mg tablet 80 mg PO DAILY Qty: 30 0RF pantoprazole [Protonix] 40 mg tablet,delayed release (DR/EC) 40 mg PO DAILY Qty: 30 0RF Discharge Instructions Instructions: Anxiety (ED) Additional Instructions: Take the hydroxyzine as needed for anxiety. Recheck with your PCP Wednesday; there should be someone covering for her. Return to ED for crushing chest pain, inability to breathe, any other concerns. Medical Decision Making I suspect the patient is having panic attacks which are made worse with him being out of his Ativan. He does have an extensive medical history so we will check an EKG, chest x-ray, and some labs. He seems comfortable with this plan. 1550. Patient was reassured that all of his test results look fine. He looks and feels improved. As it turns out he has not been on Ativan for several months. I will give him a prescription for hydroxyzine and have asked him to follow-up with his PCP who he says is out with COVID. I did tell him that someone should be covering for her. Medical Records Medical records reviewed: Yes I reviewed the patient's medical records. Imaging Data Radiologic Study: My impression: CXR: NAD Lab Data Lab results reviewed: Yes I reviewed the patient's lab results. Lab results narrative: Patient's white cell count is 10.8 thousand with 68 polys, 22 lymphs, and 8 monos. Platelets are 427. Glucose is 122. The remainder of the patient's labs including H&H, lytes, renal function, LFTs, and troponin are all unremarkable. ECG Data Attestation: I personally reviewed and interpreted this ECG (s) as follows: (NSR 65, old IMI, Q waves V1,3, no interum change vs 02/15/23) Prior ECG tracings: available for review HPI General Date/Time Provider Initiated Documentation: 02/26/23 14:00 . HPI Narrative: This 52-year-old male patient with a history of congestive heart failure, myocardial infarction, cardiac arrest, anxiety, and panic attacks presents with a chief complaint of anxious feeling in his chest and shortness of breath. Patient states this has been on and off since yesterday. He says it was worse yesterday and somebody tried to talk to him on the bus when he put his hand up and said he could not talk. As it turns out the patient is out of his twice daily Ativan. He states that he usually takes this on a daily basis in spite of it being a as needed medication. He did call the pharmacy but they are waiting for the prescription to be called in or something along these lines. The patient does tell me he has had a little bit of a runny nose and mild cough. He also has a little bit of a sore throat and headache. He says that he gets dry heaves when he is having a panic attack and he has been dry heaving. He thinks this is the cause of the sore throat and headache. The patient denies chest pain. He has had no fever or chills. He has no pedal edema or calf pain. He is morbidly obese. He does have a history of atrial fibrillation and takes twice daily Eliquis at 5 mg. Related Data Home Medications Medication Instructions Recorded Confirmed atorvastatin 80 mg tablet 80 mg PO DAILY #30 tabs 01/06/22 02/22/23 isosorbide mononitrate 30 mg 30 mg PO DAILY 01/06/22 02/22/23 tablet,extended release 24 hr pantoprazole 40 mg tablet,delayed 40 mg PO DAILY #30 tabs 01/06/22 02/22/23 release (Protonix) ranolazine 500 mg tablet,extended 500 mg PO BID 01/06/22 02/22/23 release,12 hr albuterol sulfate 90 mcg/actuation 2 inh inhalation Q4H PRN #1 ea 06/17/22 02/22/23 breath activated powder inhaler nitroglycerin 0.4 mg sublingual 0.4 mg sublingual Q5-15M PRN chest 07/03/22 02/22/23 tablet pain #90 tabs ipratropium 0.5 mg-albuterol 3 mg 3 ml UPD Q6H PRN PRN wheezing #180 09/25/22 02/22/23 (2.5 mg base)/3 mL nebulization mL soln torsemide 20 mg tablet 60 mg (3 x 20 mg) PO DAILY #90 tabs 09/25/22 02/22/23 acetaminophen 500 mg capsule 1,000 mg PO Q6H PRN 10/05/22 02/22/23 melatonin 10 mg capsule 10 mg PO HS PRN 10/05/22 02/22/23 multivitamin with iron-mineral 1 tab PO DAILY 10/05/22 02/22/23 (Super Multiple tablet) spironolactone 25 mg tablet 25 mg PO DAILY 10/05/22 02/22/23 folic acid 1 mg tablet 1,000 mcg PO DAILY 10/08/22 02/22/23 tiotropium 2.5 mcg-olodaterol 2.5 2 puff inhalation DAILY #4 grams 12/17/22 02/22/23 mcg/actuation mist for inhalation (Stiolto Respimat) azithromycin 250 mg tablet 250 mg PO DAILY #30 tabs 12/18/22 02/22/23 apixaban 5 mg tablet (Eliquis) 5 mg PO BID 12/22/22 02/22/23 buspirone 15 mg tablet 15 mg PO TID 12/22/22 02/22/23 gabapentin 100 mg capsule 400 mg PO QID 12/22/22 02/22/23 buprenorphine 8 mg-naloxone 2 mg 1 film buccal DAILY 01/20/23 02/22/23 sublingual film amiodarone 100 mg tablet 100 mg PO DAILY #90 tabs 02/02/23 02/22/23 aspirin 81 mg tablet,delayed 81 mg PO DAILY #90 tabs 02/02/23 02/22/23 release escitalopram oxalate 10 mg tablet 10 mg PO DAILY 02/05/23 02/22/23 hydroxyzine HCl 10 mg tablet 10 mg PO TID 02/05/23 02/22/23 polyethylene glycol 3350 17 gram 17 g PO PRN PRN 02/05/23 02/22/23 oral powder packet hydroxyzine HCl 50 mg tablet 50 mg PO TID PRN anxiety #30 tabs 02/26/23 Previous Rx's Medication Instructions Recorded atorvastatin 80 mg tablet 80 mg PO DAILY #30 tabs 01/06/22 pantoprazole 40 mg tablet,delayed 40 mg PO DAILY #30 tabs 01/06/22 release (Protonix) albuterol sulfate 90 mcg/actuation 2 inh inhalation Q4H PRN #1 ea 06/17/22 breath activated powder inhaler nitroglycerin 0.4 mg sublingual 0.4 mg sublingual Q5-15M PRN chest 07/03/22 tablet pain #90 tabs ipratropium 0.5 mg-albuterol 3 mg 3 ml UPD Q6H PRN PRN wheezing #180 09/25/22 (2.5 mg base)/3 mL nebulization mL soln torsemide 20 mg tablet 60 mg (3 x 20 mg) PO DAILY #90 tabs 09/25/22 tiotropium 2.5 mcg-olodaterol 2.5 2 puff inhalation DAILY #4 grams 12/17/22 mcg/actuation mist for inhalation (Stiolto Respimat) azithromycin 250 mg tablet 250 mg PO DAILY #30 tabs 12/18/22 amiodarone 100 mg tablet 100 mg PO DAILY #90 tabs 02/02/23 aspirin 81 mg tablet,delayed 81 mg PO DAILY #90 tabs 02/02/23 release hydroxyzine HCl 50 mg tablet 50 mg PO TID PRN anxiety #30 tabs 02/26/23 Allergies Allergy/AdvReac Type Severity Reaction Status Date / Time hydromorphone [From Dilaudid] Allergy Verified 02/22/23 09:23 General Stated Complaint: Anxiety GLADIS: 3 Review of Systems All systems reviewed & are unremarkable except as noted in HPI and below Constitutional Constitutional: Denies chills, Denies fever(s), Denies headache(s) and Denies weakness Eyes Eyes: Denies diplopia and Reports other (no redness) ENT Ears, Nose, Mouth, and Throat: Denies otalgia, Denies headache(s), Denies nasal congestion, Denies nasal discharge, Denies neck pain and Denies sore throat Cardiovascular Cardiovascular: Denies chest pain, Denies palpitations and Denies dyspnea Respiratory Respiratory: Denies cough and Denies dyspnea Gastrointestinal Gastrointestinal: Denies abdominal pain, Denies diarrhea, Denies nausea and Denies vomiting Genitourinary Genitourinary: Denies difficulty urinating and Denies dysuria Musculoskeletal Musculoskeletal: Denies myalgias, Denies muscle weakness, Denies neck pain, D enies numbness and Reports other (edema) Integumentary/Breasts Skin/Breast: Denies change in pigmentation and Denies rash Neurologic Neurologic: Denies headache(s), Denies numbness and Denies weakness Endocrine Endocrine: Denies palpitations PFSH All Active Problems (Updated 02/26/23 @ 15:51 by Brittany Caro MD) Shortness of breath (Acute) Suicidal ideation (Acute) Pulmonary hypertension (Acute) Erectile dysfunction (Acute) 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 (Acute) History of Brittany's gangrene (Acute) Obesity, morbid, BMI 40.0-49.9 (Acute) Obesity hypoventilation syndrome (Chronic) Respiratory failure with hypoxia and hypercapnia (Acute) Diastolic heart failure (Acute) Anxiety (Acute) Cellulitis of leg, left (Acute) Angina pectoris (Chronic) GERD (gastroesophageal reflux disease) (Chronic) Depression (Chronic) Morbid obesity (Chronic) AICD (automatic cardioverter/defibrillator) present (Acute) placed at [facility] for ischemic dilated cardiomyopathy [employer] Margaret MACDONALD 01/27/21 RH HLD (hyperlipidemia) (Acute) ETOH abuse (Chronic) Drug dependence (Chronic) COPD (chronic obstructive pulmonary disease) (Chronic) Ischemic cardiomyopathy (Chronic) Afib (Chronic) Tobacco use disorder (Acute) Hx of hyperlipidemia (Acute) HTN (hypertension) (Chronic) CAD (coronary artery disease) (Chronic) Medical History Hypercapnia Acute non-ST elevation myocardial infarction (NSTEMI) Folliculitis Fluid overload Acute hypokalemia Acute respiratory failure with hypoxia and hypercapnia Acute on chronic combined systolic (congestive) and diastolic (congestive) heart failure Sepsis Left thigh pain Multifocal pneumonia Acute respiratory failure with hypoxia Hypokalemia Lactic acidosis Thrombocytosis Leukocytosis CHF exacerbation Consolidation of left lower lobe of lung Medication monitoring encounter Pulmonary nodules Acute on chronic heart failure with reduced ejection fraction and diastolic dysfunction Somnolence Alcohol use disorder, severe, dependence [facility] 01/21 Dental infection Exertional chest pain Homelessness CHF (congestive heart failure) Pacemaker Cardiac arrest Surgical History History of coronary artery stent placement History of tonsillectomy History of hernia repair History of right knee joint replacement Social History Smoking/Tobacco Use Status: Current every day Tobacco Type: cigarettes and e- cigarettes Smoking risk assessment performed?: Yes Alcohol Intake: former Year quit: 2020 Details: Former heavy alcohol use. Drug use: Occasionally Substance use type: heroin Housing: other Do you feel safe at home: Yes Do you feel safe in your relationship?: Yes Additional Social history: going through divorce, living in hotel Exam Const General: no acute distress, well developed, well groomed and not in acute distress Nutritional Appearance: well nourished Orientation: alert and oriented x3 [facility] Head: normocephalic and atraumatic Ears: external ears normal Mouth: oropharynx normal and moist mucous membranes Throat: posterior oropharynx normal Eyes Conjunctivae: conjunctivae normal Neck Neck: full ROM and supple Chest Chest: normal inspection of the chest Resp Effort & Inspection: normal respiratory effort Auscultation: clear to auscultation bilaterally Cardio Rate: regular rate Rhythm: regular rhythm Heart Sounds: no murmurs and no rubs GI Inspection: normal to inspection and obesity (morbid) Palpation: soft, nontender and other (non distended) Auscultation: normal bowel sounds Skin General skin exam: no rashes or lesions noted and other (pink, warm, dry) Neuro General: patient alert, patient awake and patient oriented x3 Speech: speech normal Motor: other ([place]) Sensory Exam: no sensory deficits noted Extrem General: normal to inspection (no calf TTP), full ROM and pedal edema present Psych Mental Status: mental status grossly normal Speech and Movement: speech and movement normal Affect: normal affect Course Vital Signs Vital signs: Vital Signs Temperature 36.8 C 02/26/23 13:58 Pulse 75 02/26/23 13:58 Respiratory Rate 20 02/26/23 13:58 Blood Pressure 150/72 H 02/26/23 13:58 Pulse Oximetry 97 02/26/23 13:58 Temperature 36.8 C 02/26/23 13:58 Pulse 75 02/26/23 13:58 Respiratory Rate 20 02/26/23 13:58 Blood Pressure 150/72 H 02/26/23 13:58 Blood Pressure Position Sitting 02/26/23 13:58 Pulse Oximetry 97 02/26/23 13:58 Oxygen Delivery Method Room Air 02/26/23 13:58 Oxygen Flow Rate 0 02/26/23 13:58
[2023-02-26] MEDS: LORazepam 1 MG TAB 2 MG PO (14:23)
[2023-02-26 14:45] LABS: Abs Immature Grans 0.03 10^3/uL (0.0-0.06); Absolute Basophil Count 0.09 10^3/uL (0.0-0.2); Absolute Eosinophil Count 0.22 10^3/uL (0.0-0.7); Absolute Lymphocyte Count 2.41 10^3/uL (1.2-3.4); Absolute Monocyte Count 0.85 10^3/uL (0.1-0.8); Absolute Neutrophil Count 7.21 10^3/uL (1.2-6.7); Basophils % 0.8; HCT 42.5 % (40.0-50.0); Immature Grans % 0.3; Lymphocytes % 22.3; MCH 29.9 pg (27.0-33.0); MCHC 32.9 % (32.0-36.0); MCV 91 fL (80-95); MPV 8.8 fL (8.0-11.0); Monocytes % 7.9; Neutrophils % 66.7; Platelet Count 427 10^3/uL (130-400); RBC 4.69 10^6/uL (4.36-5.78); RDW 14.6 % (11.8-14.1); RDW-SD 47.8 fL; WBC 10.81 10^3/uL (4.4-10.8)
[2023-02-26 15:00] LABS: ALT 16 U/L (16-63); AST 10 U/L (15-37); Albumin 4.2 g/dL (3.4-5.0); Alkaline Phosphatase 99 U/L (46-116); BUN 15 mg/dL (7-18); Bilirubin, Total 0.7 mg/dL (0.2-1.0); CREATININE 1.2 mg/dL (0.70-1.30); Chloride 98 mmol/L (98-107); Estimated GFR 71.86 (mL/min/1.73m2); Glucose 122 mg/dL (74-106); Potassium 4.1 mmol/L (3.5-5.1); Sodium 137 mmol/L (136-145); Total Protein 8.7 g/dL (6.4-8.2); Troponin I < 50 ng/L (<or=60)
[2023-02-26 15:29] LABS: COVID-19 PCR Negative (Negative); Influenza A PCR Negative (Negative); Influenza B PCR Negative (Negative); RSV PCR Negative (Negative)
[2023-02-26 15:49] LABS: Source Nasopharynx
[2023-02-26 16:24] VITALS: BP 132/78; PULSE 82; RESP 20; TEMP 36.8; O2SAT 99
--- NOTE | 2023-02-27 07:30 | NUR.NOTE ---
Accessed pt chart to determine number of EKG orders. Duplicate order cancelled. Nursing Note:
== END 2023-02-26 16:25 | disposition home or self-care (01) ==
PROVIDERS: Emergency Provider Emergency Medicine; PCP Nurse Practitioner Family
DX: F41.9 Anxiety disorder, unspecified (principal); I25.10 Atherosclerotic heart disease of native coronary artery without angina pectoris; I25.2 Old myocardial infarction; I48.91 Unspecified atrial fibrillation; I11.0 Hypertensive heart disease with heart failure; I50.43 Acute on chronic combined systolic (congestive) and diastolic (congestive) heart failure; Z95.810 Presence of automatic (implantable) cardiac defibrillator; Z20.822 Contact with and (suspected) exposure to COVID-19; Z79.01 Long term (current) use of anticoagulants; Z79.82 Long term (current) use of aspirin
CPT/HCPCS: 80053; 87637; 93005; 99284; 71045; 83735; 84484; 85025; 93010

== ENCOUNTER 2023-03-08 06:01 | Emergency (ER) | payer MEDICAID, SELFPAY ==
[2023-03-08 06:04] VITALS: BP 117/67; PULSE 73; RESP 18; TEMP 36.5; O2SAT 97
--- NOTE | 2023-03-08 07:23 | ED.GENADUL_ITS ---
Discharge Plan Discharge Details Chief Complaint: PsychEval Primary Care Provider: Gerri Silverman ED Provider: Gino Dodd Home Meds and New Rx's Prescriptions: No Action nitroglycerin 0.4 mg tablet, sublingual 0.4 mg sublingual Q5-15M PRN (Reason: chest pain) Qty: 90 3RF Rx Instructions: do not exceed 3 doses per episode folic acid 1 mg tablet 1,000 mcg PO DAILY Patient Comments: 10/07/22 per PCP prescribed as 1 mg daily RH azithromycin 250 mg tablet 250 mg PO DAILY Qty: 30 12RF gabapentin 100 mg capsule 400 mg PO QID buspirone 15 mg tablet 15 mg PO TID acetaminophen 500 mg capsule 1,000 mg PO Q6H PRN spironolactone 25 mg tablet 25 mg PO DAILY Super Multiple Tablet 1 tab PO DAILY melatonin 10 mg capsule 10 mg PO HS PRN Stiolto Respimat 2.5-2.5 mcg/actuation mist 2 puff inhalation DAILY Qty: 4 12RF aspirin 81 mg tablet,delayed release (DR/EC) 81 mg PO DAILY Qty: 90 3RF amiodarone 100 mg tablet 100 mg PO DAILY Qty: 90 3RF Eliquis 5 mg tablet 5 mg PO BID Qty: 60 12RF albuterol sulfate 90 mcg/actuation aerosol powdr breath activated 2 inh inhalation Q4H PRNQty: 1 0RF ipratropium-albuterol 0.5 mg-3 mg(2.5 mg base)/3 mL Solution For Nebulization 3 ml UPD Q6H PRN PRN (Reason: wheezing) Qty: 180 0RF torsemide 20 mg tablet 60 mg PO DAILY Qty: 90 3RF Rx Instructions: 40 mg in am, 20 mg around 2p buprenorphine-naloxone 8-2 mg Film 1 film BUCCAL DAILY polyethylene glycol 3350 17 gram Powder In Packet 17 g PO PRN PRN hydroxyzine HCl 10 mg Tablet 10 mg PO TID Patient Comments: unsure total dose escitalopram oxalate 10 mg Tablet 10 mg PO DAILY isosorbide mononitrate 30 mg Tablet Extended Release 24 Hr 30 mg PO DAILY ranolazine 500 mg Tablet Extended Release 12 Hr 500 mg PO BID atorvastatin 80 mg tablet 80 mg PO DAILY Qty: 30 0RF pantoprazole [Protonix] 40 mg tablet,delayed release (DR/EC) 40 mg PO DAILY Qty: 30 0RF Patient Comments: probably but unsure hydroxyzine HCl 50 mg tablet 50 mg PO TID PRN (Reason: anxiety) Qty: 30 0RF Patient Comments: unsure total dose Medical Decision Making 726??52-year-old male with multiple medical problems including history of depression, anxiety, prior attempts at self-harm and suicidality, cardiomyopathy, hypertension, CAD (stents), AICD, opioid use disorder, here with severe depression and suicidality. Patient is here voluntarily. He is cooperative and feels safe here in the emergency department. Clinical patient observer ordered. Will consult crisis screener at designated agency. Screening labs given medical history to be drawn. --ED reviewed and nondiagnostic. Normal QTc. -- Patient is medically screened and no acute medical condition identified. Home medications ordered as prescribed. Patient was evaluated by crisis screener and there is plan for voluntary psychiatric inpatient treatment for suicidality. Lab Data Lab results reviewed: Yes I reviewed the patient's lab results. Labs: Laboratory Tests Range/Units 03/08/23 03/08/23 07:39 14:50 WBC (4.4-10.8) 10^3/uL 9.86 RBC (4.36-5.78) 10^6/uL 3.93 L Hgb (13.5-17.5) g/dL 11.6 L Hct (40.0-50.0) % 36.2 L MCV (80-95) fL 92 MCH (27.0-33.0) pg 29.5 MCHC (32.0-36.0) % 32.0 RDW (11.8-14.1) % 14.4 H Plt Count (130-400) 10^3/uL 350 MPV (8.0-11.0) fL 8.7 Immature Gran % 0.4 Neutrophils % 61.8 Lymphocytes % 23.3 Monocytes % 8.6 Eosinophils % 5.2 Basophils % 0.7 Nucleated RBC % (0.0-0.3) % 0.0 Absolute Neutrophils (1.2-6.7) 10^3/uL 6.09 Absolute Lymphocytes (1.2-3.4) 10^3/uL 2.30 Absolute Monocytes (0.1-0.8) 10^3/uL 0.85 H Absolute Eosinophils (0.0-0.7) 10^3/uL 0.51 Absolute Basophils (0.0-0.2) 10^3/uL 0.07 Sodium (136-145) mmol/L 136 Potassium (3.5-5.1) mmol/L 3.9 Chloride (98-107) mmol/L 95 L Carbon Dioxide (21.0-32.0) mmol/L 37.3 H Anion Gap (3-11) mmol/L 3.7 BUN (7-18) mg/dL 11 Creatinine (0.70-1.30) mg/dL 1.1 Est GFR (CKD-EPI 2020) (mL/min/1.73m2) 79.77 Glucose (74-106) mg/dL 107 H Calcium (8.5-10.1) mg/dL 9.5 Total Bilirubin (0.2-1.0) mg/dL 0.3 AST (15-37) U/L 25 ALT (16-63) U/L 31 Alkaline Phosphatase (46-116) U/L 83 Total Protein (6.4-8.2) g/dL 7.0 Albumin (3.4-5.0) g/dL 3.1 L TSH (0.36-3.74) uIU/mL 0.95 Salicylates (<2.8) mg/dL 6.1 Urine Opiates Screen (Negative) Negative Urine Methadone Screen (Negative) Negative Acetaminophen (10-30) ug/mL < 2 Ur Barbiturates Screen (Negative) Negative Ur Tricyclics Screen (Negative) Negative Ur Amphetamines Screen (Negative) Negative U Benzodiazepines Scrn (Negative) Negative Urine Cocaine Screen (Negative) Negative Ur THC Screen (Negative) Negative Ethyl Alcohol (<10) mg/dL < 3.0 HPI General Mode of arrival: ambulatory . Date/Time Provider Initiated Documentation: 03/08/23 06:09 . Limitations to Documentation: no limitations . Information obtained by: patient . HPI Narrative: 52-year-old male with medical history significant for cardiomyopathy, hypertension, CAD (stents), AICD, depression, anxiety, polysubstance abuse including opioids, here with chief complaint of suicidality. Patient notes ongoing depression and intermittent suicidality for the past few weeks. Patient notes he relapsed on opioids in October and has been using intermittent since. He is motivated to stop using. He is here voluntarily today requesting help with his depression and suicidality. Patient denies hallucinations. Related Data Home Medications Medication Instructions Recorded Confirmed atorvastatin 80 mg tablet 80 mg PO DAILY #30 tabs 01/06/22 03/08/23 isosorbide mononitrate 30 mg 30 mg PO DAILY 01/06/22 03/08/23 tablet,extended release 24 hr pantoprazole 40 mg tablet,delayed 40 mg PO DAILY #30 tabs 01/06/22 03/08/23 release (Protonix) ranolazine 500 mg tablet,extended 500 mg PO BID 01/06/22 03/08/23 release,12 hr albuterol sulfate 90 mcg/actuation 2 inh inhalation Q4H PRN #1 ea 06/17/22 03/08/23 breath activated powder inhaler nitroglycerin 0.4 mg sublingual 0.4 mg sublingual Q5-15M PRN chest 07/03/22 03/08/23 tablet pain #90 tabs ipratropium 0.5 mg-albuterol 3 mg 3 ml UPD Q6H PRN PRN wheezing #180 09/25/22 03/08/23 (2.5 mg base)/3 mL nebulization mL soln torsemide 20 mg tablet 60 mg (3 x 20 mg) PO DAILY #90 tabs 09/25/22 03/08/23 acetaminophen 500 mg capsule 1,000 mg PO Q6H PRN 10/05/22 03/08/23 melatonin 10 mg capsule 10 mg PO HS PRN 10/05/22 03/08/23 multivitamin with iron-mineral 1 tab PO DAILY 10/05/22 03/08/23 (Super Multiple tablet) spironolactone 25 mg tablet 25 mg PO DAILY 10/05/22 03/08/23 folic acid 1 mg tablet 1,000 mcg PO DAILY 10/08/22 03/08/23 tiotropium 2.5 mcg-olodaterol 2.5 2 puff inhalation DAILY #4 grams 12/17/22 03/08/23 mcg/actuation mist for inhalation (Stiolto Respimat) azithromycin 250 mg tablet 250 mg PO DAILY #30 tabs 12/18/22 03/08/23 buspirone 15 mg tablet 15 mg PO TID 12/22/22 03/08/23 gabapentin 100 mg capsule 400 mg PO QID 12/22/22 03/08/23 buprenorphine 8 mg-naloxone 2 mg 1 film buccal DAILY 01/20/23 03/08/23 sublingual film amiodarone 100 mg tablet 100 mg PO DAILY #90 tabs 02/02/23 03/08/23 aspirin 81 mg tablet,delayed 81 mg PO DAILY #90 tabs 02/02/23 03/08/23 release escitalopram oxalate 10 mg tablet 10 mg PO DAILY 02/05/23 03/08/23 hydroxyzine HCl 10 mg tablet 10 mg PO TID 02/05/23 03/08/23 polyethylene glycol 3350 17 gram 17 g PO PRN PRN 02/05/23 03/08/23 oral powder packet hydroxyzine HCl 50 mg tablet 50 mg PO TID PRN anxiety #30 tabs 02/26/23 03/08/23 apixaban 5 mg tablet (Eliquis) 5 mg PO BID #60 tabs 03/01/23 03/08/23 Previous Rx's Medication Instructions Recorded atorvastatin 80 mg tablet 80 mg PO DAILY #30 tabs 01/06/22 pantoprazole 40 mg tablet,delayed 40 mg PO DAILY #30 tabs 01/06/22 release (Protonix) albuterol sulfate 90 mcg/actuation 2 inh inhalation Q4H PRN #1 ea 06/17/22 breath activated powder inhaler nitroglycerin 0.4 mg sublingual 0.4 mg sublingual Q5-15M PRN chest 07/03/22 tablet pain #90 tabs ipratropium 0.5 mg-albuterol 3 mg 3 ml UPD Q6H PRN PRN wheezing #180 09/25/22 (2.5 mg base)/3 mL nebulization mL soln torsemide 20 mg tablet 60 mg (3 x 20 mg) PO DAILY #90 tabs 09/25/22 tiotropium 2.5 mcg-olodaterol 2.5 2 puff inhalation DAILY #4 grams 12/17/22 mcg/actuation mist for inhalation (Stiolto Respimat) azithromycin 250 mg tablet 250 mg PO DAILY #30 tabs 12/18/22 amiodarone 100 mg tablet 100 mg PO DAILY #90 tabs 02/02/23 aspirin 81 mg tablet,delayed 81 mg PO DAILY #90 tabs 02/02/23 release hydroxyzine HCl 50 mg tablet 50 mg PO TID PRN anxiety #30 tabs 02/26/23 apixaban 5 mg tablet (Eliquis) 5 mg PO BID #60 tabs 03/01/23 Allergies Allergy/AdvReac Type Severity Reaction Status Date / Time hydromorphone [From Dilaudid] Allergy Verified 02/22/23 09:23 General Stated Complaint: PsychEval GLADIS: 2 Review of Systems All systems reviewed & are unremarkable except as noted in HPI and below Psychiatric Psychiatric: Reports as per HPI PFSH All Active Problems Shortness of breath (Acute) Pulmonary hypertension (Acute) Erectile dysfunction (Acute) On fci drug therapy (Acute) History of Brittany's gangrene (Acute) Obesity, morbid, BMI 40.0-49.9 (Acute) Obesity hypoventilation syndrome (Chronic) Respiratory failure with hypoxia and hypercapnia (Acute) Diastolic heart failure (Acute) Anxiety (Acute) Cellulitis of leg, left (Acute) Angina pectoris (Chronic) GERD (gastroesophageal reflux disease) (Chronic) Depression (Chronic) Morbid obesity (Chronic) AICD (automatic cardioverter/defibrillator) present (Acute) placed at [facility] for ischemic dilated cardiomyopathy [employer] Margaret MACDONALD 01/27/21 RH HLD (hyperlipidemia) (Acute) ETOH abuse (Chronic) Drug dependence (Chronic) COPD (chronic obstructive pulmonary disease) (Chronic) Ischemic cardiomyopathy (Chronic) Afib (Chronic) Tobacco use disorder (Acute) Hx of hyperlipidemia (Acute) HTN (hypertension) (Chronic) CAD (coronary artery disease) (Chronic) Medical History Hypercapnia Acute non-ST elevation myocardial infarction (NSTEMI) Folliculitis Fluid overload Acute hypokalemia Acute respiratory failure with hypoxia and hypercapnia Acute on chronic combined systolic (congestive) and diastolic (congestive) heart failure Sepsis Left thigh pain Multifocal pneumonia Acute respiratory failure with hypoxia Hypokalemia Lactic acidosis Thrombocytosis Leukocytosis CHF exacerbation Consolidation of left lower lobe of lung Medication monitoring encounter Pulmonary nodules Acute on chronic heart failure with reduced ejection fraction and diastolic dysfunction Somnolence Alcohol use disorder, severe, dependence [facility] 01/21 Dental infection Exertional chest pain Homelessness CHF (congestive heart failure) Pacemaker Cardiac arrest Surgical History History of coronary artery stent placement History of tonsillectomy History of hernia repair History of right knee joint replacement Social History Smoking/Tobacco Use Status: Current every day Tobacco Type: cigarettes and e- cigarettes Smoking risk assessment performed?: Yes Alcohol Intake: never Details: Former heavy alcohol use. Drug use: Occasionally Substance use type: heroin Housing: other Do you feel safe at home: Yes Do you feel safe in your relationship?: Yes Additional Social history: going through divorce, living in hotel Exam Const General: cooperative and no acute distress HENMT Head: normocephalic and atraumatic Mouth: moist mucous membranes Eyes Conjunctivae: normal conjunctivae Sclera: normal sclerae Neck Neck: trachea midline and supple Resp Auscultation: clear to auscultation bilaterally, no rales, no rhonchi and no wheezes Cardio Rate: regular rate and not tachycardic Rhythm: regular rhythm GI Palpation: soft, not firm, no guarding, no masses, not rigid and nontender Skin Trauma: abrasion (Superficial abrasion left wrist) Neuro General: patient alert, patient awake, patient oriented x3 and tone normal Extrem General: no edema Psych Appearance: grossly normal Mental Status: mental status grossly normal Speech and Movement: speech and movement normal Attitude: cooperative Thought Content: suicidality Insight: insight good Course Vital Signs Vital signs: Vital Signs Temperature 36.5 C 03/08/23 06:04 Pulse 73 03/08/23 06:04 Respiratory Rate 18 03/08/23 06:04 Blood Pressure 117/67 03/08/23 06:04 Pulse Oximetry 97 03/08/23 06:04 Temperature 36.5 C 03/08/23 06:04 Temperature Source Temporal Artery Scan 03/08/23 06:04 Pulse 73 03/08/23 06:04 Respiratory Rate 18 03/08/23 06:04 Respiratory Effort Normal, Non-Labored 03/08/23 06:08 Blood Pressure 117/67 03/08/23 06:04 Pulse Oximetry 97 03/08/23 06:04 Oxygen Delivery Method Room Air 03/08/23 06:04 Oxygen Flow Rate 0 03/08/23 06:04 Pain Level 0 03/08/23 06:04
[2023-03-08] MEDS: LORazepam 1 MG TAB PO ×3 (07:44→20:27)
[2023-03-08 07:45] LABS: Abs Immature Grans 0.04 10^3/uL (0.0-0.06); Absolute Basophil Count 0.07 10^3/uL (0.0-0.2); Absolute Eosinophil Count 0.51 10^3/uL (0.0-0.7); Absolute Monocyte Count 0.85 10^3/uL (0.1-0.8); Absolute Neutrophil Count 6.09 10^3/uL (1.2-6.7); Basophils % 0.7; Eosinophils % 5.2; HCT 36.2 % (40.0-50.0); HGB 11.6 g/dL (13.5-17.5); Immature Grans % 0.4; Lymphocytes % 23.3; MCH 29.5 pg (27.0-33.0); MCV 92 fL (80-95); MPV 8.7 fL (8.0-11.0); Monocytes % 8.6; Neutrophils % 61.8; Platelet Count 350 10^3/uL (130-400); RBC 3.93 10^6/uL (4.36-5.78); RDW 14.4 % (11.8-14.1); WBC 9.86 10^3/uL (4.4-10.8)
[2023-03-08 08:10] LABS: ALT 31 U/L (16-63); AST 25 U/L (15-37); Albumin 3.1 g/dL (3.4-5.0); Alkaline Phosphatase 83 U/L (46-116); Anion Gap 3.7 mmol/L (3-11); BUN 11 mg/dL (7-18); Bilirubin, Total 0.3 mg/dL (0.2-1.0); CO2 37.3 mmol/L (21.0-32.0); CREATININE 1.1 mg/dL (0.70-1.30); Calcium 9.5 mg/dL (8.5-10.1); Chloride 95 mmol/L (98-107); Estimated GFR 79.77 (mL/min/1.73m2); Glucose 107 mg/dL (74-106); Potassium 3.9 mmol/L (3.5-5.1); Sodium 136 mmol/L (136-145); TSH (W/Ref FT4) 0.95 uIU/mL (0.36-3.74)
[2023-03-08 08:12] LABS: Salicylate 6.1 mg/dL (<2.8)
[2023-03-08 08:13] LABS: ETHANOL BLOOD < 3.0 mg/dL (<10)
[2023-03-08 08:14] LABS: Acetaminophen < 2 ug/mL (10-30)
[2023-03-08] MEDS: Buprenorphine/Naloxone 8 mg/2 mg FILM 1 EACH SL (13:32)
[2023-03-08] MEDS: Buprenorphine/Naloxone 12 mg/3 mg FILM 1 EACH SL (13:32)
--- NOTE | 2023-03-08 15:00 | RT.EKG_ITS ---
APPROVED REPORT Exam: Resting ECG Reason for Exam: cardiac history, asses QT Patient Location: E HR:52 bpm ECG Measurements Heart Rate 52 AXIS MN 191 P 66 QRSd 108 QRS 44 QT 480 T 83 QTc 448 Conclusion Sinus bradycardia...rate< 60 Probable inferior infarct, old...Q>35mS, II III aVF Nonspecific T abnormalities, lateral leads...T <-0.10mV, I aVL V5 V6 no significant change from prior
[2023-03-08 15:20] LABS: *AMPHETAMINES SCREEN URINE Negative (Negative); *BARBITURATES SCREEN URINE Negative (Negative); *BENZODIAZEPINES SCREEN URINE Negative (Negative); Cannabinoids THC Negative (Negative); Cocaine Screen,Urine Negative (Negative); METHADONE URINE SCREEN Negative (Negative); OPIATES URINE SCREEN Negative (Negative)
[2023-03-08 15:21] LABS: Tricyclic Antidepressants Negative (Negative)
[2023-03-08] MEDS: Gabapentin 400 MG CAP PO ×2 (15:32→20:05)
--- NOTE | 2023-03-08 16:59 | CMSP_ITS ---
Date of service: 03/08/23 Time of Service: 16:59 Care Management Safety Plan Status Status: Voluntary Reason for Wait Reason for Wait: Inpatient Admission Safety Plan Safety Plan: VOLUNTARY FOR INPATIENT PSYCHIATRIC STABILIZATION.? Patient is appropriate in all interactions since arriving at [facility]; Pt has demonstrated appropriate coping and communication skills, has articulated his needs and concerns and is fully engaged during staff interactions. Safety plan has been established with patient, and care team, to adhere to patient goals, identify restrictions based on behavioral status, address nutrition, and determine allowed personal belongings, tools for hygiene and personal care. Determine level of activity including ambulation, level of supervision, visitors, and determine privileges based on behaviors and level of engagement by pt. SAFETY PLAN: 1. Will remain on suicide precautions, in paper clothes 2. Will remain in room under direct supervision of one-on-one staff at all times provided by [employer]; DAVID, [employer] independent living instructor. 3. May have paper cups, plates, finger foods as well as a cardboard spoon with which to eat meals. 4. Follow [facility] Management of the Admitted Behavioral Health Patient policy. 5. Comfort bath system, shower permitted in Zone B. 6. Personal belongings-soft items permitted at RN discretion. 7. Visitors-none at this time. 8. Activities: television, soft cart items approved per RN discretion. 9.? Bathroom privileges available in Zone B. 10. Phone: none at this time. Due to VOLUNTARY status, if patient wishes to leave [facility], staff will contact [facility] Crisis Screener ([phone]) and On-Call Can Operator ([phone]) as soon as possible. Patient is currently voluntarily at [facility] and seeking inpatient admission when a bed becomes available. [facility] Frontline Work And Family Life Consultant will continue seeking placement. Please contact the Telephone Sterilizer Can Operator ([phone]) and [facility] Work And Family Life Consultant ([phone]) for any needed changes in the Safety Plan. Safety plan has been provided to interdepartmental care team.
[2023-03-08] MEDS: hydrOXYzine HCL 10 MG TAB PO (17:28)
[2023-03-08] MEDS: Ranolazine 500 MG TABCR PO (20:04)
[2023-03-08] MEDS: busPIRone 15 MG TAB PO (20:05)
[2023-03-08] MEDS: Apixaban 5 MG TAB PO (20:05)
--- NOTE | 2023-03-08 22:07 | ED.GENADUL_ITS ---
Discharge Plan Discharge Details Chief Complaint: PsychEval Primary Care Provider: Gerri Silverman ED Provider: Andriy Negro Home Meds and New Rx's Prescriptions: No Action nitroglycerin 0.4 mg tablet, sublingual 0.4 mg sublingual Q5-15M PRN (Reason: chest pain) Qty: 90 3RF Rx Instructions: do not exceed 3 doses per episode folic acid 1 mg tablet 1,000 mcg PO DAILY Patient Comments: 10/07/22 per PCP prescribed as 1 mg daily RH azithromycin 250 mg tablet 250 mg PO DAILY Qty: 30 12RF gabapentin 100 mg capsule 400 mg PO QID buspirone 15 mg tablet 15 mg PO TID acetaminophen 500 mg capsule 1,000 mg PO Q6H PRN spironolactone 25 mg tablet 25 mg PO DAILY Super Multiple Tablet 1 tab PO DAILY melatonin 10 mg capsule 10 mg PO HS PRN Stiolto Respimat 2.5-2.5 mcg/actuation mist 2 puff inhalation DAILY Qty: 4 12RF aspirin 81 mg tablet,delayed release (DR/EC) 81 mg PO DAILY Qty: 90 3RF amiodarone 100 mg tablet 100 mg PO DAILY Qty: 90 3RF Eliquis 5 mg tablet 5 mg PO BID Qty: 60 12RF albuterol sulfate 90 mcg/actuation aerosol powdr breath activated 2 inh inhalation Q4H PRNQty: 1 0RF ipratropium-albuterol 0.5 mg-3 mg(2.5 mg base)/3 mL Solution For Nebulization 3 ml UPD Q6H PRN PRN (Reason: wheezing) Qty: 180 0RF torsemide 20 mg tablet 60 mg PO DAILY Qty: 90 3RF Rx Instructions: 40 mg in am, 20 mg around 2p buprenorphine-naloxone 8-2 mg Film 1 film BUCCAL DAILY polyethylene glycol 3350 17 gram Powder In Packet 17 g PO PRN PRN hydroxyzine HCl 10 mg Tablet 10 mg PO TID Patient Comments: unsure total dose escitalopram oxalate 10 mg Tablet 10 mg PO DAILY isosorbide mononitrate 30 mg Tablet Extended Release 24 Hr 30 mg PO DAILY ranolazine 500 mg Tablet Extended Release 12 Hr 500 mg PO BID atorvastatin 80 mg tablet 80 mg PO DAILY Qty: 30 0RF pantoprazole [Protonix] 40 mg tablet,delayed release (DR/EC) 40 mg PO DAILY Qty: 30 0RF Patient Comments: probably but unsure hydroxyzine HCl 50 mg tablet 50 mg PO TID PRN (Reason: anxiety) Qty: 30 0RF Patient Comments: unsure total dose HPI General Mode of arrival: ambulatory . Date/Time Provider Initiated Documentation: 03/08/23 06:09 . Limitations to Documentation: no limitations . Information obtained by: patient . HPI Narrative: 52-year-old gentleman with past medical history of hypertension, CAD, COPD, cardiomyopathy, A-fib presents for evaluation of feeling cold. He reports that he has felt very cold and having the shivers for the last 3 hours. He reports that he lives at home with family. The heat is working and the temperature at the house was set to 72, but he still feels cold. He checked his temperature at home and it was normal. He has not had any other sick symptoms like runny nose, sore throat, chest pain, cough or shortness of breath. He states other than feeling very cold, he has no other complaints. Related Data Home Medications Medication Instructions Recorded Confirmed atorvastatin 80 mg tablet 80 mg PO DAILY #30 tabs 01/06/22 03/08/23 isosorbide mononitrate 30 mg 30 mg PO DAILY 01/06/22 03/08/23 tablet,extended release 24 hr pantoprazole 40 mg tablet,delayed 40 mg PO DAILY #30 tabs 01/06/22 03/08/23 release (Protonix) ranolazine 500 mg tablet,extended 500 mg PO BID 01/06/22 03/08/23 release,12 hr albuterol sulfate 90 mcg/actuation 2 inh inhalation Q4H PRN #1 ea 06/17/22 03/08/23 breath activated powder inhaler nitroglycerin 0.4 mg sublingual 0.4 mg sublingual Q5-15M PRN chest 07/03/22 03/08/23 tablet pain #90 tabs ipratropium 0.5 mg-albuterol 3 mg 3 ml UPD Q6H PRN PRN wheezing #180 09/25/22 03/08/23 (2.5 mg base)/3 mL nebulization mL soln torsemide 20 mg tablet 60 mg (3 x 20 mg) PO DAILY #90 tabs 09/25/22 03/08/23 acetaminophen 500 mg capsule 1,000 mg PO Q6H PRN 10/05/22 03/08/23 melatonin 10 mg capsule 10 mg PO HS PRN 10/05/22 03/08/23 multivitamin with iron-mineral 1 tab PO DAILY 10/05/22 03/08/23 (Super Multiple tablet) spironolactone 25 mg tablet 25 mg PO DAILY 10/05/22 03/08/23 folic acid 1 mg tablet 1,000 mcg PO DAILY 10/08/22 03/08/23 tiotropium 2.5 mcg-olodaterol 2.5 2 puff inhalation DAILY #4 grams 12/17/22 03/08/23 mcg/actuation mist for inhalation (Stiolto Respimat) azithromycin 250 mg tablet 250 mg PO DAILY #30 tabs 12/18/22 03/08/23 buspirone 15 mg tablet 15 mg PO TID 12/22/22 03/08/23 gabapentin 100 mg capsule 400 mg PO QID 12/22/22 03/08/23 buprenorphine 8 mg-naloxone 2 mg 1 film buccal DAILY 01/20/23 03/08/23 sublingual film amiodarone 100 mg tablet 100 mg PO DAILY #90 tabs 02/02/23 03/08/23 aspirin 81 mg tablet,delayed 81 mg PO DAILY #90 tabs 02/02/23 03/08/23 release escitalopram oxalate 10 mg tablet 10 mg PO DAILY 02/05/23 03/08/23 hydroxyzine HCl 10 mg tablet 10 mg PO TID 02/05/23 03/08/23 polyethylene glycol 3350 17 gram 17 g PO PRN PRN 02/05/23 03/08/23 oral powder packet hydroxyzine HCl 50 mg tablet 50 mg PO TID PRN anxiety #30 tabs 02/26/23 03/08/23 apixaban 5 mg tablet (Eliquis) 5 mg PO BID #60 tabs 03/01/23 03/08/23 Previous Rx's Medication Instructions Recorded atorvastatin 80 mg tablet 80 mg PO DAILY #30 tabs 01/06/22 pantoprazole 40 mg tablet,delayed 40 mg PO DAILY #30 tabs 01/06/22 release (Protonix) albuterol sulfate 90 mcg/actuation 2 inh inhalation Q4H PRN #1 ea 06/17/22 breath activated powder inhaler nitroglycerin 0.4 mg sublingual 0.4 mg sublingual Q5-15M PRN chest 07/03/22 tablet pain #90 tabs ipratropium 0.5 mg-albuterol 3 mg 3 ml UPD Q6H PRN PRN wheezing #180 09/25/22 (2.5 mg base)/3 mL nebulization mL soln torsemide 20 mg tablet 60 mg (3 x 20 mg) PO DAILY #90 tabs 09/25/22 tiotropium 2.5 mcg-olodaterol 2.5 2 puff inhalation DAILY #4 grams 12/17/22 mcg/actuation mist for inhalation (Stiolto Respimat) azithromycin 250 mg tablet 250 mg PO DAILY #30 tabs 12/18/22 amiodarone 100 mg tablet 100 mg PO DAILY #90 tabs 02/02/23 aspirin 81 mg tablet,delayed 81 mg PO DAILY #90 tabs 02/02/23 release hydroxyzine HCl 50 mg tablet 50 mg PO TID PRN anxiety #30 tabs 02/26/23 apixaban 5 mg tablet (Eliquis) 5 mg PO BID #60 tabs 03/01/23 Allergies Allergy/AdvReac Type Severity Reaction Status Date / Time hydromorphone [From Dilaudid] Allergy Verified 02/22/23 09:23 General Stated Complaint: PsychEval GLADIS: 2 PFSH All Active Problems Shortness of breath (Acute) Pulmonary hypertension (Acute) Erectile dysfunction (Acute) 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 therapy (Acute) History of Brittany's gangrene (Acute) Obesity, morbid, BMI 40.0-49.9 (Acute) Obesity hypoventilation syndrome (Chronic) Respiratory failure with hypoxia and hypercapnia (Acute) Diastolic heart failure (Acute) Anxiety (Acute) Cellulitis of leg, left (Acute) Angina pectoris (Chronic) GERD (gastroesophageal reflux disease) (Chronic) Depression (Chronic) Morbid obesity (Chronic) AICD (automatic cardioverter/defibrillator) present (Acute) placed at [facility] for ischemic dilated cardiomyopathy Sruthi Robles DR 01/27/21 RH HLD (hyperlipidemia) (Acute) ETOH abuse (Chronic) Drug dependence (Chronic) COPD (chronic obstructive pulmonary disease) (Chronic) Ischemic cardiomyopathy (Chronic) Afib (Chronic) Tobacco use disorder (Acute) Hx of hyperlipidemia (Acute) HTN (hypertension) (Chronic) CAD (coronary artery disease) (Chronic) Medical History Hypercapnia Acute non-ST elevation myocardial infarction (NSTEMI) Folliculitis Fluid overload Acute hypokalemia Acute respiratory failure with hypoxia and hypercapnia Acute on chronic combined systolic (congestive) and diastolic (congestive) heart failure Sepsis Left thigh pain Multifocal pneumonia Acute respiratory failure with hypoxia Hypokalemia Lactic acidosis Thrombocytosis Leukocytosis CHF exacerbation Consolidation of left lower lobe of lung Medication monitoring encounter Pulmonary nodules Acute on chronic heart failure with reduced ejection fraction and diastolic dysfunction Somnolence Alcohol use disorder, severe, dependence [facility] 01/21 Dental infection Exertional chest pain Homelessness CHF (congestive heart failure) Pacemaker Cardiac arrest Surgical History History of coronary artery stent placement History of tonsillectomy History of hernia repair History of right knee joint replacement Social History Smoking/Tobacco Use Status: Current every day Tobacco Type: cigarettes and e- cigarettes Smoking risk assessment performed?: Yes Alcohol Intake: never Details: Former heavy alcohol use. Drug use: Occasionally Substance use type: heroin Housing: other Do you feel safe at home: Yes Do you feel safe in your relationship?: Yes Additional Social history: going through divorce, living in hotel Exam Narrative Exam Narrative: Review of Systems: All systems reviewed & are unremarkable except as noted in HPI and below: CONSTITUTIONAL: Alert and oriented Shivering HEENT: NACT EYES: PERRL, no conjunctival injection EARS: no external abnormality NOSE nares patent MOUTH Moist MM NECK: Symmetric, trachea midline, No thyromegaly THROAT oropharynx clear CVS: Tachycardic, No murmurs or gallops. Peripheral pulses 2+ and equal in all extremities Brisk capillary refill in all extremities. No peripheral edema RESP: Unlabored respiratory effort, Clear to auscultation bilaterally No wheezes rales or rhonchi GI: Soft, Nontender, Nondistended, No organomegaly MSK: Extremities with full range of motion, no deformity or TTP SKIN: Warm, Dry. No rashes or lesions. NEURO: No focal neurologic deficits. 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 Sensation grossly intact Normal strength throughout PSYCH: Appropriate mood and affect Course Vital Signs Vital signs: Vital Signs Temperature 36.5 C 03/08/23 06:04 Pulse 73 03/08/23 06:04 Respiratory Rate 18 03/08/23 06:04 Blood Pressure 117/67 03/08/23 06:04 Pulse Oximetry 97 03/08/23 06:04 Temperature 36.5 C 03/08/23 06:04 Temperature Source Temporal Artery Scan 03/08/23 06:04 Pulse 73 03/08/23 06:04 Respiratory Rate 18 03/08/23 06:04 Respiratory Effort Normal, Non-Labored 03/08/23 06:08 Blood Pressure 117/67 03/08/23 06:04 Pulse Oximetry 97 03/08/23 06:04 Oxygen Delivery Method Room Air 03/08/23 06:04 Oxygen Flow Rate 0 03/08/23 06:04 Pain Level 0 03/08/23 06:04 Lab/Test Results Lab/Test Results: Laboratory Tests Range/Units 03/08/23 03/08/23 07:39 14:50 WBC (4.4-10.8) 10^3/uL 9.86 RBC (4.36-5.78) 10^6/uL 3.93 L Hgb (13.5-17.5) g/dL 11.6 L Hct (40.0-50.0) % 36.2 L MCV (80-95) fL 92 MCH (27.0-33.0) pg 29.5 MCHC (32.0-36.0) % 32.0 RDW (11.8-14.1) % 14.4 H Plt Count (130-400) 10^3/uL 350 MPV (8.0-11.0) fL 8.7 Immature Gran % 0.4 Neutrophils % 61.8 Lymphocytes % 23.3 Monocytes % 8.6 Eosinophils % 5.2 Basophils % 0.7 Nucleated RBC % (0.0-0.3) % 0.0 Absolute Neutrophils (1.2-6.7) 10^3/uL 6.09 Absolute Lymphocytes (1.2-3.4) 10^3/uL 2.30 Absolute Monocytes (0.1-0.8) 10^3/uL 0.85 H Absolute Eosinophils (0.0-0.7) 10^3/uL 0.51 Absolute Basophils (0.0-0.2) 10^3/uL 0.07 Sodium (136-145) mmol/L 136 Potassium (3.5-5.1) mmol/L 3.9 Chloride (98-107) mmol/L 95 L Carbon Dioxide (21.0-32.0) mmol/L 37.3 H Anion Gap (3-11) mmol/L 3.7 BUN (7-18) mg/dL 11 Creatinine (0.70-1.30) mg/dL 1.1 Est GFR (CKD-EPI 2020) (mL/min/1.73m2) 79.77 Glucose (74-106) mg/dL 107 H Calcium (8.5-10.1) mg/dL 9.5 Total Bilirubin (0.2-1.0) mg/dL 0.3 AST (15-37) U/L 25 ALT (16-63) U/L 31 Alkaline Phosphatase (46-116) U/L 83 Total Protein (6.4-8.2) g/dL 7.0 Albumin (3.4-5.0) g/dL 3.1 L TSH (0.36-3.74) uIU/mL 0.95 Salicylates (<2.8) mg/dL 6.1 Urine Opiates Screen (Negative) Negative Urine Methadone Screen (Negative) Negative Acetaminophen (10-30) ug/mL < 2 Ur Barbiturates Screen (Negative) Negative Ur Tricyclics Screen (Negative) Negative Ur Amphetamines Screen (Negative) Negative U Benzodiazepines Scrn (Negative) Negative Urine Cocaine Screen (Negative) Negative Ur THC Screen (Negative) Negative Ethyl Alcohol (<10) mg/dL < 3.0 Sign Out Sign Out Data: Sign Out Comment: Patient here voluntarily with suicidality awaiting inpatient treatment. Medically screened in no acute medical condition identified. Home medications ordered as prescribed. Patient does require intermittent Ativan for anxiety. Note patient is on Suboxone. Last updated by Gino Dodd MD at 03/08/23 16:55
[2023-03-09] MEDS: hydrOXYzine HCL 10 MG TAB PO ×2 (01:13→08:45)
--- NOTE | 2023-03-09 06:17 | NUR.NOTE ---
[facility]
[2023-03-09] MEDS: Gabapentin 400 MG CAP PO ×2 (08:45→12:48)
[2023-03-09] MEDS: Azithromycin 250 MG TAB PO (08:45)
[2023-03-09] MEDS: Escitalopram 10 MG TAB PO (08:45)
[2023-03-09] MEDS: Buprenorphine/Naloxone 12 mg/3 mg FILM 1 EACH SL (08:45)
[2023-03-09] MEDS: Folic Acid 1 MG TAB PO (08:45)
[2023-03-09] MEDS: busPIRone 15 MG TAB PO (08:45)
[2023-03-09] MEDS: Aspirin 81 MG CHEW PO (08:45)
[2023-03-09] MEDS: Apixaban 5 MG TAB PO (08:45)
[2023-03-09] MEDS: Amiodarone 200 MG TAB 100 MG PO (08:45)
[2023-03-09] MEDS: Buprenorphine/Naloxone 8 mg/2 mg FILM 1 EACH SL (08:45)
[2023-03-09] MEDS: Pantoprazole 40 MG TABCR PO (08:46)
[2023-03-09] MEDS: Multivitamin TAB 1 TAB PO (08:46)
[2023-03-09] MEDS: Spironolactone 25 MG TAB PO (08:46)
[2023-03-09] MEDS: Tiotropium Bromide-Respimat 10 PUFF INH 2 PUFF IH (08:46)
[2023-03-09] MEDS: Isosorbide Mononitrate 30 MG TABCR PO (08:46)
[2023-03-09] MEDS: Ranolazine 500 MG TABCR PO (08:46)
[2023-03-09] MEDS: Torsemide 20 MG TAB 60 MG PO (08:47)
[2023-03-09] MEDS: LORazepam 1 MG TAB PO ×2 (08:54→14:40)
--- NOTE | 2023-03-09 11:44 | MHPN_ITS ---
Date of service: 03/09/23 Time of Service: 11:44 Mental Health Emergency Note Release [facility] release signed:: Yes Reason for Visit Client presented to [facility] on 03.08.23 due to passive suicidal ideation. Client presented to [facility] on 01/19/2023 for anxiety and SI. Client continues to wait voluntarily while placement is sought. In the last 2 weeks has the pt presented for ES prior to today?: Unknown Impression Client is a single 52 year old male who lives by himself in the [facility]. He is on disability due to a heart attack that happened a year ago. Client reports using heroin daily when he can get it and uses up his money and does not have enough for necessities throughout the day month due to spending it on heroin. Client reports wanting to get sober and find somewhere in which he is not exposed to other people using substances. The client presented today with complaints for being tired as he had not slept for 5-6 days prior to arriving to the ED. He reported he did sleep last night. He had told nursing staff just before arrival that he was feeling anxious and so ED staff wonder if he had not been taking his Suboxone prior to arriving to the ED and they r estarted him on it resulting in him being jittery and anxious. The client presented lying in bed complaining of being cold. He has the TV on for noise. He reported that he ate breakfast however, does not have an appetite. He reported that the coping skills he is using is sleep and does not want anything else. The client is still seeking inpatient voluntarily. Plan/Disposition Recommended Disposition: Hospitalization facilities contacted. Plan: The client will remain at [facility] pending acceptance to a psychiatric acceptance. He declined an interest in the LGBTQ unit at which is respected. He will be re-assessed daily by [facility]. Reports/communication Outcome discussed with: ED/Personnel
--- NOTE | 2023-03-09 11:51 | ED.PROG_ITS ---
Date of service: 03/09/23 Time of Service: 11:51 Medical Decision Making Care signed out by Dr. Menard with plan to follow-up on inpatient psychiatric placement. I received a call from Dasha Garcia, provider at [facility], discussed ED presentation and course, she will accept the patient in transfer. Sign Out Sign Out Data: Sign Out Comment: Patient here voluntarily with suicidality awaiting inpatient treatment. Medically screened in no acute medical condition identified. Home medications ordered as prescribed. Patient does require intermittent Ativan for anxiety. Note patient is on Suboxone. Last updated by Gino Dodd MD at 03/08/23 16:55 Sign Out Comment: awaiting voluntary placement for SI Last updated by Andriy Negro MD at 03/08/23 22:44 Sign Out Comment: Voluntary MH, awaiting placement. Has been sleeping during my shift , no meds needed. Last updated by David Frederick MD at 03/09/23 07:12 Discharge Plan Disposition Patient Disposition: Psychiatric Hospital/Unit Specific Psychiatric Facility: [facility] Condition: Serious Discharge Details Chief Complaint: PsychEval Clinical Impression: Intentional self-harm by knife, Suicidal ideation Primary Care Provider: Gerri Silverman ED Provider: Gion Dodd Home Meds and New Rx's Prescriptions: No Action nitroglycerin 0.4 mg tablet, sublingual 0.4 mg sublingual Q5-15M PRN (Reason: chest pain) Qty: 90 3RF Rx Instructions: do not exceed 3 doses per episode folic acid 1 mg tablet 1,000 mcg PO DAILY Patient Comments: 10/07/22 per PCP prescribed as 1 mg daily RH azithromycin 250 mg tablet 250 mg PO DAILY Qty: 30 12RF gabapentin 100 mg capsule 400 mg PO QID buspirone 15 mg tablet 15 mg PO TID acetaminophen 500 mg capsule 1,000 mg PO Q6H PRN spironolactone 25 mg tablet 25 mg PO DAILY Super Multiple Tablet 1 tab PO DAILY melatonin 10 mg capsule 10 mg PO HS PRN Stiolto Respimat 2.5-2.5 mcg/actuation mist 2 puff inhalation DAILY Qty: 4 12RF aspirin 81 mg tablet,delayed release (DR/EC) 81 mg PO DAILY Qty: 90 3RF amiodarone 100 mg tablet 100 mg PO DAILY Qty: 90 3RF Eliquis 5 mg tablet 5 mg PO BID Qty: 60 12RF albuterol sulfate 90 mcg/actuation aerosol powdr breath activated 2 inh inhalation Q4H PRNQty: 1 0RF ipratropium-albuterol 0.5 mg-3 mg(2.5 mg base)/3 mL Solution For Nebulization 3 ml UPD Q6H PRN PRN (Reason: wheezing) Qty: 180 0RF torsemide 20 mg tablet 60 mg PO DAILY Qty: 90 3RF Rx Instructions: 40 mg in am, 20 mg around 2p buprenorphine-naloxone 8-2 mg Film 1 film BUCCAL DAILY polyethylene glycol 3350 17 gram Powder In Packet 17 g PO PRN PRN hydroxyzine HCl 10 mg Tablet 10 mg PO TID Patient Comments: unsure total dose escitalopram oxalate 10 mg Tablet 10 mg PO DAILY isosorbide mononitrate 30 mg Tablet Extended Release 24 Hr 30 mg PO DAILY ranolazine 500 mg Tablet Extended Release 12 Hr 500 mg PO BID atorvastatin 80 mg tablet 80 mg PO DAILY Qty: 30 0RF pantoprazole [Protonix] 40 mg tablet,delayed release (DR/EC) 40 mg PO DAILY Qty: 30 0RF Patient Comments: probably but unsure hydroxyzine HCl 50 mg tablet 50 mg PO TID PRN (Reason: anxiety) Qty: 30 0RF Patient Comments: unsure total dose
[2023-03-09] MEDS: Nicotine 14 MG/24 HR PATCH TD (12:52)
--- NOTE | 2023-03-09 16:27 | PDOC.CMDIS ---
Date of service: 03/09/23 Time of Service: 16:27 Care Management Discharge Plan Reason for Hospitalization: depression, SI Discharge Plan: Ray will be transferred to [place] for voluntary inpatient psychiatric treatment. He will be transported by [facility]. Disposition Disposition: [place]
== END 2023-03-09 14:46 ==
PROVIDERS: Emergency Provider Student in an Organized Health Care Education/Training Program; PCP Nurse Practitioner Family
DX: R45.851 Suicidal ideations (principal); F32.4 Major depressive disorder, single episode, in partial remission; I25.10 Atherosclerotic heart disease of native coronary artery without angina pectoris; I25.2 Old myocardial infarction; I11.0 Hypertensive heart disease with heart failure; I50.43 Acute on chronic combined systolic (congestive) and diastolic (congestive) heart failure; Z95.5 Presence of coronary angioplasty implant and graft; Z95.810 Presence of automatic (implantable) cardiac defibrillator; F17.210 Nicotine dependence, cigarettes, uncomplicated
CPT/HCPCS: 00123; 80053; 80307; 84145; 87637; 93005; 99285; 80320; 80329; 83880; 84443; 84484; 85025; 93010; J3490

== ENCOUNTER 2023-05-28 17:29 | Inpatient (IN) | payer MEDICAID, SELFPAY ==
[2023-05-28] VITALS (46 sets, daily range): BP systolic 65–104; BP diastolic 36–63; PULSE 67–81; RESP 5–18; TEMP 35.6; O2SAT 93–97
--- NOTE | 2023-05-28 17:15 | RT.EKG_ITS ---
APPROVED REPORT Exam: Resting ECG Reason for Exam: Fall Patient Location: E HR:77 bpm ECG Measurements Heart Rate 77 AXIS MI 167 P 52 QRSd 107 QRS 37 QT 425 T 94 QTc 481 Conclusion Sinus rhythm...normal P axis, V-rate 60- 99 Inferior infarct, old...Q >35mS, II III aVF Nonspecific T abnormalities, lateral leads...T <-0.10mV, I aVL V5 V6
--- NOTE | 2023-05-28 17:47 | ED.GENADUL_ITS ---
HPI General Mode of arrival: EMS . Date/Time Provider Initiated Documentation: 05/28/23 17:31 . Limitations to Documentation: no limitations . Information obtained by: patient . History of Present Illness 52 year old M presents to the emergency department with the chief complaint of fall, head lac, described as moderate, Quality is described as aching, and is localized to the head. Patient started experiencing this hour(s) (1) No relieving factors improve symptom(s), No exacerbating factors reported . Patient notes denies chest pain and shortness of breath. Related Data Home Medications Medication Instructions Recorded Confirmed atorvastatin 80 mg tablet 80 mg PO DAILY #30 tabs 01/06/22 03/08/23 isosorbide mononitrate 30 mg 30 mg PO DAILY 01/06/22 03/08/23 tablet,extended release 24 hr pantoprazole 40 mg tablet,delayed 40 mg PO DAILY #30 tabs 01/06/22 03/08/23 release (Protonix) ranolazine 500 mg tablet,extended 500 mg PO BID 01/06/22 03/08/23 release,12 hr albuterol sulfate 90 mcg/actuation 2 inh inhalation Q4H PRN #1 ea 06/17/22 03/08/23 breath activated powder inhaler nitroglycerin 0.4 mg sublingual 0.4 mg sublingual Q5-15M PRN chest 07/03/22 03/08/23 tablet pain #90 tabs ipratropium 0.5 mg-albuterol 3 mg 3 ml UPD Q6H PRN PRN wheezing #180 09/25/22 03/08/23 (2.5 mg base)/3 mL nebulization mL soln torsemide 20 mg tablet 60 mg (3 x 20 mg) PO DAILY #90 tabs 09/25/22 03/08/23 acetaminophen 500 mg capsule 1,000 mg PO Q6H PRN 10/05/22 03/08/23 melatonin 10 mg capsule 10 mg PO HS PRN 10/05/22 03/08/23 multivitamin with iron-mineral 1 tab PO DAILY 10/05/22 03/08/23 (Super Multiple tablet) spironolactone 25 mg tablet 25 mg PO DAILY 10/05/22 03/08/23 folic acid 1 mg tablet 1,000 mcg PO DAILY 10/08/22 03/08/23 tiotropium 2.5 mcg-olodaterol 2.5 2 puff inhalation DAILY #4 grams 12/17/22 03/08/23 mcg/actuation mist for inhalation (Stiolto Respimat) azithromycin 250 mg tablet 250 mg PO DAILY #30 tabs 12/18/22 03/08/23 buspirone 15 mg tablet 15 mg PO TID 12/22/22 03/08/23 gabapentin 100 mg capsule 400 mg PO QID 12/22/22 03/08/23 buprenorphine 8 mg-naloxone 2 mg 1 film buccal DAILY 01/20/23 03/08/23 sublingual film amiodarone 100 mg tablet 100 mg PO DAILY #90 tabs 02/02/23 03/08/23 aspirin 81 mg tablet,delayed 81 mg PO DAILY #90 tabs 02/02/23 03/08/23 release escitalopram oxalate 10 mg tablet 10 mg PO DAILY 02/05/23 03/08/23 hydroxyzine HCl 10 mg tablet 10 mg PO TID 02/05/23 03/08/23 polyethylene glycol 3350 17 gram 17 g PO PRN PRN 02/05/23 03/08/23 oral powder packet hydroxyzine HCl 50 mg tablet 50 mg PO TID PRN anxiety #30 tabs 02/26/23 03/08/23 apixaban 5 mg tablet (Eliquis) 5 mg PO BID #60 tabs 03/01/23 03/08/23 Previous Rx's Medication Instructions Recorded atorvastatin 80 mg tablet 80 mg PO DAILY #30 tabs 01/06/22 pantoprazole 40 mg tablet,delayed 40 mg PO DAILY #30 tabs 01/06/22 release (Protonix) albuterol sulfate 90 mcg/actuation 2 inh inhalation Q4H PRN #1 ea 06/17/22 breath activated powder inhaler nitroglycerin 0.4 mg sublingual 0.4 mg sublingual Q5-15M PRN chest 07/03/22 tablet pain #90 tabs ipratropium 0.5 mg-albuterol 3 mg 3 ml UPD Q6H PRN PRN wheezing #180 09/25/22 (2.5 mg base)/3 mL nebulization mL soln torsemide 20 mg tablet 60 mg (3 x 20 mg) PO DAILY #90 tabs 09/25/22 tiotropium 2.5 mcg-olodaterol 2.5 2 puff inhalation DAILY #4 grams 12/17/22 mcg/actuation mist for inhalation (Stiolto Respimat) azithromycin 250 mg tablet 250 mg PO DAILY #30 tabs 12/18/22 amiodarone 100 mg tablet 100 mg PO DAILY #90 tabs 02/02/23 aspirin 81 mg tablet,delayed 81 mg PO DAILY #90 tabs 02/02/23 release hydroxyzine HCl 50 mg tablet 50 mg PO TID PRN anxiety #30 tabs 02/26/23 apixaban 5 mg tablet (Eliquis) 5 mg PO BID #60 tabs 03/01/23 Allergies Allergy/AdvReac Type Severity Reaction Status Date / Time hydromorphone [From Dilaudid] Allergy Verified 02/22/23 09:23 General Stated Complaint: Fall/Non TraumaCriteria GLADIS: 3 Review of Systems All systems reviewed & are unremarkable except as noted in HPI and below Constitutional Constitutional: Denies chills, Denies fever(s) and Denies weakness Cardiovascular Cardiovascular: Denies chest pain and Denies dyspnea Respiratory Respiratory: Denies cough and Denies dyspnea Gastrointestinal Gastrointestinal: Denies abdominal pain, Denies nausea and Denies vomiting Musculoskeletal Musculoskeletal: Denies joint swelling Neurologic Neurologic: Denies weakness Exam Const General: no acute distress Orientation: alert [facility] Head: no palpable skull fracture Ears: external ears normal General nose exam: external nose normal Mouth: moist mucous membranes Eyes General: appearance normal, both eyes and all related structures Neck Neck: normal visual inspection Chest Chest: no tenderness Resp Effort & Inspection: normal respiratory effort and able to speak in complete sentences Auscultation: clear to auscultation bilaterally Cardio Rate: regular rate GI Palpation: soft and nontender Skin General skin exam: no rashes or lesions noted Neuro General: patient alert and patient oriented x3 Extrem General: normal to inspection Psych Mental Status: mental status grossly normal Course Vital Signs Vital signs: Vital Signs Pulse 77 05/28/23 17:32 Respiratory Rate 16 05/28/23 17:32 Pulse Oximetry 94 05/28/23 17:32 Pulse 77 05/28/23 17:32 Respiratory Rate 16 05/28/23 17:32 Pulse Oximetry 94 05/28/23 17:32 Oxygen Delivery Method Nasal Cannula 05/28/23 17:32 Oxygen Flow Rate 4 05/28/23 17:32 Procedures Laceration Laceration 1: Site: scalp Size (cm): 10 Description: linear and flap Depth: simple, single layer Local Anesthetic: Lidocaine 1% and with Epi Amount of anesthesia used (mL): 10 Pre-repair: wound explored Skin layer closed with: other (georgina) Number of sutures: 11 (georgina) Medical Decision Making 52 yo male with multiple medical problems including CAD s/p [place] and in-hospital cardiac arrest ([facility]) s/p AICD, as well as h/o chronic diastolic CHF, Afib on amiodarone and on anticoagulation, HTN, hyperlipidemia, prior substance abuse, who comes in with cc of fall. HE states yesterday he fell backwards after slipping in the shower and struck the back of his head. Did not have bleeding and felt fine so did not seek eval. Today at the [facility] he was walking and states he tripped over the carpet causing him to fall and hit the top of his head on the concrete. Denies loc, denies any chest pain, dyspnea, fevers, chills. He has a 10cm linear scalp lac with bleeding controlled on the superior portion of his head. PErrl, eomi. HE denies chest tenderness, abdominal tenderness or back tenderness. HE is caox4 and states he feels fine other then feeling anxious due to being in the ambulance which makes him anxious. He is noted to have a bp in the 70's sytolic with no tachycardia, no note of any beta blockers on his medication list. HE does admit to using opiates but not intravenously per patient. Will check ekg/troponin, cbc, cmp, procalcitonin and obtain ct head/c spine and given the hypotension obtain cta of the chest and ct abdomen pelvis to evaluate for sources of infection, PE, ptx and surgical intraabdominal pathology that could be causing his hypotension. HE will need georgina for closure of his head wound labs show wbc of 16, has neftali and felt contrast would be of benefit despite his neftali and cta shows bilateral ground glass disease, zosyn ordered to provide broad spectrum pneumonia coverage and will send fluvid. CT head and c spine negative though limited at c1/c2, has no pain at all on midline c spine with full rom. bp was in the 80's syltolic now 104/77 on repeat exam. Given his comorbiditis, leukocytosis and bilateral pneumonia will discuss with hospitalist about admission Differential Diagnosis Differential Diagnosis: mechanical fall, hypotension, anemia, tbi Medical Records Medical records reviewed: Yes I reviewed the patient's medical records. Imaging Data Radiologic Study: Attestation: I personally reviewed and interpreted this imaging study as follows: Imaging: CT Scan Radiologist's impression: IMPRESSION: 1. No acute intracranial findings. 2. Left frontoparietal scalp laceration. IMPRESSION: 1. Motion artifact particularly limits assessment of C1-C2 levels. No gross displaced fracture. 2. Lung apices poorly assessed due to motion. Please see follow-up CTA chest. Lab Data Lab results reviewed: Yes I reviewed the patient's lab results. ECG Data Attestation: I personally reviewed and interpreted this ECG (s) as follows: Prior ECG tracings: available for review Interpretation: sinus rate of 77, pr 167, no stemi Quality:SDOH Health Related Social Needs: Health related social needs risk of homeless PFSH All Active Problems (Updated 05/28/23 @ 19:50 by Giovani Langley MD) Fall (Acute) Laceration of head (Acute) Blunt head trauma (Acute) Blunt trauma of multiple sites of trunk (Acute) Pulmonary hypertension (Acute) Erectile dysfunction (Acute) On jail drug therapy (Acute) History of Brittany's gangrene (Acute) Obesity, morbid, BMI 40.0-49.9 (Acute) Obesity hypoventilation syndrome (Chronic) Respiratory failure with hypoxia and hypercapnia (Acute) Diastolic heart failure (Acute) Anxiety (Acute) Cellulitis of leg, left (Acute) Angina pectoris (Chronic) GERD (gastroesophageal reflux disease) (Chronic) Depression (Chronic) Morbid obesity (Chronic) AICD (automatic cardioverter/defibrillator) present (Acute) placed at [facility] for ischemic dilated cardiomyopathy Medrosangela Robles DR 01/27/21 RH HLD (hyperlipidemia) (Acute) ETOH abuse (Chronic) Drug dependence (Chronic) COPD (chronic obstructive pulmonary disease) (Chronic) Ischemic cardiomyopathy (Chronic) Afib (Chronic) Tobacco use disorder (Acute) Hx of hyperlipidemia (Acute) HTN (hypertension) (Chronic) CAD (coronary artery disease) (Chronic) Medical History Hypercapnia Acute non-ST elevation myocardial infarction (NSTEMI) Folliculitis Fluid overload Acute hypokalemia Acute respiratory failure with hypoxia and hypercapnia Acute on chronic combined systolic (congestive) and diastolic (congestive) heart failure Sepsis Left thigh pain Multifocal pneumonia Acute respiratory failure with hypoxia Hypokalemia Lactic acidosis Thrombocytosis Leukocytosis CHF exacerbation Consolidation of left lower lobe of lung Medication monitoring encounter Pulmonary nodules Acute on chronic heart failure with reduced ejection fraction and diastolic dysfunction Somnolence Alcohol use disorder, severe, dependence [facility] 01/21 Dental infection Exertional chest pain Homelessness CHF (congestive heart failure) Pacemaker Cardiac arrest Surgical History History of coronary artery stent placement History of tonsillectomy History of hernia repair History of right knee joint replacement Social History Smoking/Tobacco Use Status: Current every day Tobacco Type: cigarettes and e- cigarettes Smoking risk assessment performed?: Yes Alcohol Intake: never Details: Former heavy alcohol use. Drug use: Occasionally Substance use type: heroin Housing: other Do you feel safe at home: Yes Do you feel safe in your relationship?: Yes Additional Social history: going through divorce, living in hotel Discharge Plan Disposition Patient Disposition: Admit to [facility] Condition: Stable Discharge Details Chief Complaint: Fall/Non TraumaCriteria Clinical Impression: Blunt trauma of multiple sites of trunk, Blunt head trauma, Laceration of head, Fall Primary Care Provider: Gerri Silverman ED Provider: Giovani Langley [place] Meds and New Rx's Prescriptions: No Action nitroglycerin 0.4 mg tablet, sublingual 0.4 mg sublingual Q5-15M PRN (Reason: chest pain) Qty: 90 3RF Rx Instructions: do not exceed 3 doses per episode folic acid 1 mg tablet 1,000 mcg PO DAILY Patient Comments: 10/07/22 per PCP prescribed as 1 mg daily RH azithromycin 250 mg tablet 250 mg PO DAILY Qty: 30 12RF gabapentin 100 mg capsule 400 mg PO QID buspirone 15 mg tablet 15 mg PO TID acetaminophen 500 mg capsule 1,000 mg PO Q6H PRN spironolactone 25 mg tablet 25 mg PO DAILY Super Multiple Tablet 1 tab PO DAILY melatonin 10 mg capsule 10 mg PO HS PRN Stiolto Respimat 2.5-2.5 mcg/actuation mist 2 puff inhalation DAILY Qty: 4 12RF aspirin 81 mg tablet,delayed release (DR/EC) 81 mg PO DAILY Qty: 90 3RF amiodarone 100 mg tablet 100 mg PO DAILY Qty: 90 3RF Eliquis 5 mg tablet 5 mg PO BID Qty: 60 12RF albuterol sulfate 90 mcg/actuation aerosol powdr breath activated 2 inh inhalation Q4H PRNQty: 1 0RF ipratropium-albuterol 0.5 mg-3 mg(2.5 mg base)/3 mL Solution For Nebulization 3 ml UPD Q6H PRN PRN (Reason: wheezing) Qty: 180 0RF torsemide 20 mg tablet 60 mg PO DAILY Qty: 90 3RF Rx Instructions: 40 mg in am, 20 mg around 2p buprenorphine-naloxone 8-2 mg Film 1 film BUCCAL DAILY polyethylene glycol 3350 17 gram Powder In Packet 17 g PO PRN PRN hydroxyzine HCl 10 mg Tablet 10 mg PO TID Patient Comments: unsure total dose escitalopram oxalate 10 mg Tablet 10 mg PO DAILY isosorbide mononitrate 30 mg Tablet Extended Release 24 Hr 30 mg PO DAILY ranolazine 500 mg Tablet Extended Release 12 Hr 500 mg PO BID atorvastatin 80 mg tablet 80 mg PO DAILY Qty: 30 0RF pantoprazole [Protonix] 40 mg tablet,delayed release (DR/EC) 40 mg PO DAILY Qty: 30 0RF Patient Comments: probably but unsure hydroxyzine HCl 50 mg tablet 50 mg PO TID PRN (Reason: anxiety) Qty: 30 0RF Patient Comments: unsure total dose
[2023-05-28] MEDS: LORazepam 2 MG/ML VIAL 1 MG IVP (17:53)
[2023-05-28 18:00] LABS: Abs Immature Grans 0.09 10^3/uL (0.0-0.06); Basophils % 0.5; Eosinophils % 0.4; Immature Grans % 0.5; Lymphocytes % 7.5; MCH 30.3 pg (27.0-33.0); MCHC 34.1 % (32.0-36.0); MCV 89 fL (80-95); MPV 9.3 fL (8.0-11.0); Monocytes % 4.2; Neutrophils % 86.9; Platelet Count 379 10^3/uL (130-400); RBC 4.62 10^6/uL (4.36-5.78); RDW 13.8 % (11.8-14.1); RDW-SD 44.8 fL; WBC 16.58 10^3/uL (4.4-10.8)
[2023-05-28 18:01] LABS: Absolute Basophil Count 0.08 10^3/uL (0.0-0.2); Absolute Eosinophil Count 0.07 10^3/uL (0.0-0.7); Absolute Lymphocyte Count 1.24 10^3/uL (1.2-3.4); Absolute Neutrophil Count 14.41 10^3/uL (1.2-6.7)
[2023-05-28 18:13] LABS: INR 1.4 (0.9-1.1); PTT Activated 31.4 sec (23.6-32.8); Prothrombin Time 13.7 sec (9.1-11.1)
[2023-05-28 18:21] LABS: ALT 23 U/L (16-63); AST 48 U/L (15-37); Albumin 3.5 g/dL (3.4-5.0); Alkaline Phosphatase 96 U/L (46-116); BUN 27 mg/dL (7-18); Bilirubin, Total 0.9 mg/dL (0.2-1.0); CREATININE 2.8 mg/dL (0.70-1.30); Calcium 9.8 mg/dL (8.5-10.1); Chloride 96 mmol/L (98-107); Glucose 89 mg/dL (74-106); Magnesium 1.9 mg/dL (1.8-2.4); Potassium 4.1 mmol/L (3.5-5.1); Sodium 134 mmol/L (136-145); Total Protein 7.5 g/dL (6.4-8.2); Troponin I < 50 ng/L (< or =60)
[2023-05-28 18:31] LABS: Procalcitonin 0.2 ng/mL
--- NOTE | 2023-05-28 18:49 | DI.CT_ITS ---
Exam(s) CT HEAD CERVICAL SPINE WO EXAM: CT HEAD CERVICAL SPINE WO CLINICAL HISTORY: fall, scalp lac, neck pain. TECHNIQUE: Imaging Protocol: Axial computed tomography images with coronal and sagittal reformatted images were created and reviewed COMPARISON: CT CT HEAD WO from 04/20/2022 FINDINGS: The examination is limited due to patient motion artifact. CT Head: Ventricles and Extra axial spaces: Normal in size and morphology for the patient's age. Hemorrhage: None. Cerebral parenchyma: Normal. No mass effect. Midline shift: None. Brainstem/Cerebellum: Normal. Calvarium: Normal. Visualized Paranasal sinuses/Mastoids: Clear. Soft Tissues: There is a laceration overlying the left frontal and parietal bone. No radiopaque fore ign bodies are seen in the soft tissues. CT Cervical Spine: Bones: No acute fracture or subluxation. Age-appropriate degenerative changes are present. There is straightening of the normal cervical lordosis which can be seen with patient positioning and muscle s pasm. Soft Tissues: Unremarkable. Lung Apices: Paraseptal emphysematous changes are seen in the left lung apex. IMPRESSION: 1. The examination is limited due to patient motion artifact. 2. No acute intracranial process. 3. There is a large laceration overlying the left frontal and parietal bones. 4. No acute fracture or subluxation in the cervical spine. RADIATION DOSE DELIVERED: 1,727.77mGy.cm Total DLP DATA REPOSITORY: All CT scans at this facility are submitted to the National Radiology Data Registry (NRDR) Dose Index Registry (DIR) with the [employer] ([employer]). RADIATION OPTIMIZATION: All CT scans at this facility use at least one of these dose optimization te chniques: automated exposure control; mA and/or kV adjustment per patient size (includes targeted exa ms where dose is matched to clinical indication); or iterative reconstruction.
--- NOTE | 2023-05-28 18:49 | DI.CT_ITS ---
Exam(s) CT CHEST PE ABD PELVIS W EXAM: CT CHEST PE ABD PELVIS W CLINICAL HISTORY: hypotension, hypoxia. TECHNIQUE: Imaging Protocol: Axial CT angiography was performed with multi-slice acquisition and mu lti-planar and/or 3D reconstructions. CONTRAST MATERIAL: Intravenous: Omnipaque 350contrast volume:100 mL COMPARISON: CT CT CHEST PE CTA from 06/14/[address] CHEST PE CTA from 06/26/[address] CHEST PE ABD PELVIS W from 08/19/[address] CHEST PE ABD PELVIS W from 09/17/[address] CHEST PE CTA from 11/03/2022 FINDINGS: The examination is limited due to patient motion artifact. Evaluation for rib fractures is suboptim al secondary to patient motion artifact. No displaced rib fractures are seen. CHEST: Tracheobronchial tree: Patent where visualized. Pulmonary parenchyma: There is a bulla in the left upper lobe. Diffuse bilateral ground-glass opacit ies are present in the lungs. No architectural distortion. Pulmonary Arteries: Evaluation of the peripheral pulmonary arteries is limited secondary to patient m otion artifact. No pulmonary embolism is identified. Mediastinum and Lorraine: No dominant adenopathy or fluid collection. The esophagus is unremarkable. Visualized thyroid gland: Unremarkable. Pleura: No effusion or pneumothorax. Heart: Mild cardiomegaly. Coronary artery calcification and/or stents are present. No pericardial e ffusion. Aorta: Thoracic aorta non-dilated. No evidence of dissection. Bones: Within normal limits for the patient's age. Soft tissues: Bilateral gynecomastia. Tubes, Catheters, and Lines: There is a cardiac device in place. ABDOMEN: Liver: Normal density. No measurable mass. Portal, Superior Mesenteric, and Splenic Veins: Unremarkable. Gallbladder and Biliary Tract: No radiodense calculus or dilation. Pancreas: There is prominent fatty atrophy of the head and body of the pancreas. Spleen: Normal. Adrenals: No masses seen. Kidneys: Normal size, contour and axis. 2 mm stone in the superior pole of the right kidney. No obst ructive uropathy. No masses seen. Abdominal Aorta: Abdominal portion non-dilated. Atherosclerosis. Bowel: No obstruction or bowel wall thickening. There are fluid-filled loops of small bowel present. There is no transition to suggest obstruction. There is no bowel wall thickening. Peritoneal Cavity: No ascites, collection or mesenteric inflammatory response. No free air. Lymph Nodes: Within normal limits. Bones: Within normal limits for the patient's age. Soft Tissues: There are small bilateral fat containing inguinal hernias. PELVIS: Bladder: Symmetric distention, no gross wall thickening. Reproductive Organs: Unremarkable as visualized. Lymph Nodes: Within normal limits. Bones: Within normal limits. IMPRESSION: 1. Multifocal ground-glass opacities are present consistent with pneumonia. 2. No evidence of a pulmonary embolism, thoracic aortic dissection or aneurysm. 3. Fluid-filled loops of small bowel are seen in the abdomen. This can be seen with a ileus, diarrhe al illness or enteritis. Please correlate clinically. 4. Right nephrolithiasis. No obstructive uropathy. RADIATION DOSE DELIVERED: 2,289.31mGy.cm Total DLP DATA REPOSITORY: All CT scans at this facility are submitted to the National Radiology Data Registry (NRDR) Dose Index Registry (DIR) with the [employer] (ACR). RADIATION OPTIMIZATION: All CT scans at this facility use at least one of these dose optimization te chniques: automated exposure control; mA and/or kV adjustment per patient size (includes targeted exa ms where dose is matched to clinical indication); or iterative reconstruction.
[2023-05-28 18:59] LABS: ETHANOL BLOOD < 3.0 mg/dL (<10)
[2023-05-28] MEDS: Omnipaque 350 MG/ML 100 ML BTL IJ (19:10)
[2023-05-28] MEDS: Normal Saline - Diluent 50 ML VIAL IJ (19:12)
--- NOTE | 2023-05-28 19:18 | DI.VRAD_ITS ---
PROCEDURE INFORMATION: Exam: CT Head Without Contrast Exam date and time: 05/28/2023 6:35 PM Age: 52 years old Clinical indication: Injury or trauma; Blunt trauma (contusions or hematomas); Consciousness not specified; Blunt trauma and laceration; Injury date: 05/28/23; Patient HX: Fall, scalp lac, neck pain TECHNIQUE: Imaging protocol: Computed tomography of the head without contrast. Radiation optimization: All CT scans at this facility use at least one of these dose optimization techniques: automated exposure control; mA and/or kV adjustment per patient size (includes targeted exams where dose is matched to clinical indication); or iterative reconstruction. COMPARISON: CT HEAD WO 04/20/2022 10:26 AM FINDINGS: Brain: No edema or hemorrhage. Cerebral ventricles: No ventriculomegaly. Paranasal sinuses: No acute sinusitis. Mastoid air cells: No mastoid effusion. Orbital cavities: Bilateral exophthalmos. Bones/joints: Tiny chronic appearing right lamina papyracea deformity. The calvarium is intact. Soft tissues: Left frontoparietal scalp laceration. IMPRESSION: 1. No acute intracranial findings. 2. Left frontoparietal scalp laceration. PROCEDURE INFORMATION: Exam: CT Cervical Spine Without Contrast Exam date and time: 05/28/2023 6:35 PM Age: 52 years old Clinical indication: Injury or trauma; Blunt trauma (contusions or hematomas); Consciousness not specified; Blunt trauma and laceration; Injury date: 05/28/23; Patient HX: Fall, scalp lac, neck pain TECHNIQUE: Imaging protocol: Computed tomography of the cervical spine without contrast. Radiation optimization: All CT scans at this facility use at least one of these dose optimization techniques: automated exposure control; mA and/or kV adjustment per patient size (includes targeted exams where dose is matched to clinical indication); or iterative reconstruction. COMPARISON: CT CHEST PE CTA 11/03/2022 4:45 PM FINDINGS: Tubes, catheters and devices: Cardiac pacemaker leads are partially seen. Bones/joints: Motion artifact particularly limits assessment of C1-C2 levels. No gross displaced fracture. Mild multilevel degenerative changes. Straightening of the normal cervical lordosis. Lungs: Lung apices poorly assessed due to motion. Bandlike ground-glass opacity right lung apex, tiny focus of favored paraseptal emphysema left lung apex. Soft tissues: No suspicious lesions. IMPRESSION: 1. Motion artifact particularly limits assessment of C1-C2 levels. No gross displaced fracture. 2. Lung apices poorly assessed due to motion. Please see follow-up CTA chest. Dictated and Authenticated by: Keyana Christie MD. Ordering:ALONSO Matute MD
--- NOTE | 2023-05-28 19:27 | DI.VRAD_ITS ---
PROCEDURE INFORMATION: Exam: CTA Chest With Contrast CTA Abdomen With Contrast Exam date and time: 05/28/2023 6:40 PM Age: 52 years old Clinical indication: Other: Hypotension, hypoxia TECHNIQUE: Imaging protocol: Computed tomographic angiography of the chest with contrast. Exam focused on the arteries. Computed tomographic angiography of the abdomen with contrast. Exam focused on the arteries. 3D rendering (Not supervised by radiologist): MIP and/or 3D reconstructed images were created by the technologist. Radiation optimization: All CT scans at this facility use at least one of these dose optimization techniques: automated exposure control; mA and/or kV adjustment per patient size (includes targeted exams where dose is matched to clinical indication); or iterative reconstruction. Contrast material: OMNIPAQUE 350; Contrast volume: 100 ml; Contrast route: INTRAVENOUS (IV); COMPARISON: CT CHEST PE CTA 11/03/2022 4:45 PM FINDINGS: Tubes, catheters and devices: Left chest wall pacemaker, satisfactory appearance. VASCULATURE: Pulmonary arteries: Allowing for motion no pulmonary artery emboli are seen, motion artifact distally. Aorta: No aortic aneurysm. No aortic dissection. Celiac trunk and mesenteric arteries: No occlusion or significant stenosis. Renal arteries: No occlusion or significant stenosis. CHEST: Lungs: New moderate in severity multilobar pulmonary ground-glass opacities slightly central and upper lobe predominant. Tiny focus of paraseptal emphysema left upper lobe. Pleural spaces: Unremarkable. No pneumothorax. No pleural effusion. Heart: Moderate cardiomegaly is similar to slightly more pronounced. ABDOMEN AND PELVIS: Liver: No mass. Gallbladder and bile ducts: Unremarkable. No calcified stones. No ductal dilation. Pancreas: Unremarkable. No mass. No ductal dilation. Spleen: Unremarkable. No splenomegaly. Adrenal glands: Unremarkable. No mass. Kidneys and ureters: No renal masses or hydronephrosis bilaterally. Stomach and bowel: Mild fluid-filled distention of mid small bowel without a focal transition point. Intraperitoneal space: Unremarkable. No free air. No significant fluid collection. Lymph nodes: Unremarkable. No enlarged lymph nodes. Bones/joints: Chronic bony changes with no acute fracture. Soft tissues: Gynecomastia. Prominent subcutaneous fat. Mild dependent subcutaneous edema. Small fat-containing right inguinal hernia. Small fat-containing left inguinal hernia. Other findings: Motion artifact. IMPRESSION: 1. New moderate in severity pulmonary ground-glass disease may reflect atypical infection, pneumonitis, asymmetric edema among other entities. 2. A minor ileus of mid small bowel without mechanical obstruction. 3. Incidental findings as described. Dictated and Authenticated by: Keyana Christie MD. Ordering:ALONSO Matute MD
[2023-05-28] MEDS: PIPERACILLIN/TAZO 4.5 GM in Normal Saline 100 ML IVPB (19:28)
[2023-05-28] MEDS: Normal Saline 250 ML IV (19:28)
[2023-05-28] MEDS: methylPREDNISolone SUCC 125 MG VIAL IVP (19:51)
[2023-05-28 20:09] LABS: COVID-19 PCR Negative (Negative); Influenza A PCR Negative (Negative); Influenza B PCR Negative (Negative); RSV PCR Negative (Negative)
[2023-05-28 20:11] LABS: Source Nasopharynx
[2023-05-28 20:43] LABS: NT-proBNP 1124 pg/mL (<300)
[2023-05-28 21:26] LABS: Troponin I < 50 ng/L (< or =60)
--- NOTE | 2023-05-28 21:59 | W.PM.HP.N ---
Date of service: 05/28/23 Time of Service: 21:59 Assessment and Plan Assessment and plan (1) Fall: Status: Acute Assessment and plan: Case is reported as a mechanical slip an fall. He relates second fall to stiffness from the first. I do not appreciate a focal neurologic deficit. Walk with nursing, get PT if concern for sately at home. Qualifiers: Encounter type: initial encounter Qualified Code(s): W19.XXXA - Unspecified fall, initial encounter (2) Blunt head trauma: Status: Acute Assessment and plan: Suture in ED, looks good. CT head/neck negative for intracranial pathology. (3) COPD (chronic obstructive pulmonary disease): Status: Chronic Assessment and plan: He does have some symptoms of COPD exacerbation. CT chest concerning for multifocal pneumonia. Given this as well as hypoxia will treat for pneumonia with ceftriaxone and doxy (he is on azithro chronically) (4) CAD (coronary artery disease): Status: Chronic Assessment and plan: EKG not c/w acute ischemia. Continue ASA/statin (5) HTN (hypertension): Status: Chronic Assessment and plan: Holding diuretics due to LORI and soft BP. Monitor. (6) Tobacco use disorder: Status: Acute Assessment and plan: Encouraged cessatoin. (7) Afib: Status: Chronic Assessment and plan: Rythm control with amiodarone, on apixaban chronically. (8) Ischemic cardiomyopathy: Status: Chronic Assessment and plan: Per cardiology notes his LVEF recovered to normal, but some diastolic dysfuntion. EKG not c/w acute ischemia. Continue outpatient medication (9) Acute kidney failure: Status: Acute Assessment and plan: Ordered bladder scan to assess for outlet obsruction, though bladder was okay on CT. Will give additional bolus, monitor for fluid overload, but I think he can handle additional fluid Holding diuretics. Avoid NSAIDs, which may have been a major cause of his LORI. (10) Multifocal pneumonia: Assessment and plan: Will treat given cough/sputum and elevate WBC. see above re ceftriaxone/doxy. Sputum culture He does not have signs to suggest MRSA or risk factors for pseudomonas. (11) Elevated AST (SGOT): Status: Acute Assessment and plan: He denies recent EtOH. Other labs not all c/w cirrhosis. Has been up/down in the past. Monitor. (12) Drug dependence: Status: Chronic Assessment and plan: On suboxone at [facility]. He reports recent taper of his dose, and I am concerned this may have been a trigger for his recent use. 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 Confirm and continue current Suboxone dose. 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 History of Present Illness History of Present Illness Chief Complaint: fall Narrative: 52 yo with polysubstance use disorder with recent opioid and amphetamine use on buprenorphine, tobacco smoking, CAD with HFpEF s/p AICD, pAfib, COPD/OHS on intermittent home O2 who presented to the ED after a fall with head trauma. He states he was in his normal state of health until the day prior to admission when he slipped on the wet floor of the bathroom and hit his back an back of his neck against the toilet. Today he woke up with feeling more sore and stiff in his neck and back of legs and stiff to the point where he had some difficulty walking. He was coming in from outside his apartment and tripped on the threshhold and fell forward and hit his head. He did not have focal weakness, chest pain, or dizziness. No LOC. He does feel like since the fall the day prior he has been moving stiffly and didn't have his normal reations to catch himself. He did take ibuprofen and tylenol this morning for pain. Review of Systems Constitutional Constitutional: Denies anorexia, Denies chills, Denies fever(s), Reports headache(s), Reports lethargy, Denies weakness and Denies weight gain Eyes Eyes: Denies change in vision, Denies diplopia, Denies irritation, Denies loss of vision and Reports photophobia ENT Ears, Nose, Mouth, and Throat: Denies vertigo, Denies dizziness, Reports headache(s), Denies nasal congestion, Denies nasal discharge, Reports neck pain, Reports disequilibrium and Denies sore throat Cardiovascular Cardiovascular: Denies chest pain, Denies syncope, Denies lightheadedness, Reports palpitations (has episodes of palpitations but not prior to fall or now) and Reports dyspnea Respiratory Respiratory: Reports cough, Denies hemoptysis, Reports excessive phlegm production (for over a week) and Reports dyspnea Gastrointestinal Gastrointestinal: Denies abdominal pain, Reports constipation (some chronic), Denies heartburn, Denies diarrhea and Denies vomiting Genitourinary Genitourinary: Denies hematuria, Denies dysuria and Denies urinary incontinence Musculoskeletal Musculoskeletal: Denies deformity, Denies joint swelling and Reports neck pain Integumentary/Breasts Skin/Breast: Denies rash and Denies skin ulcer Neurologic Neurologic: Denies confusion, Denies vertigo, Denies dizziness, Denies syncope, Reports headache(s), Denies localized weakness, Denies loss of vision, Denies convulsions, Denies sensory deficit, Reports tremor(s), Reports disequilibrium and Denies weakness Psychiatric Psychiatric: Reports anxiety (worse at hospital), Denies confusion, Denies mood swings and Reports paranoia (he makes comment about world war 3 coming) Endocrine Endocrine: Reports palpitations (has episodes of palpitations but not prior to fall or now) Hematologic/Lymphatic Hematologic/Lymphatic: Denies easy bleeding PFSH All Active Problems (Updated 05/28/23 @ 22:39 by Farhat Valdez) Elevated AST (SGOT) (Acute) Acute kidney failure (Acute) Fall (Acute) Laceration of head (Acute) Blunt head trauma (Acute) Blunt trauma of multiple sites of trunk (Acute) Pulmonary hypertension (Acute) Erectile dysfunction (Acute) 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 (Acute) History of Brittany's gangrene (Acute) Obesity, morbid, BMI 40.0-49.9 (Acute) Obesity hypoventilation syndrome (Chronic) Respiratory failure with hypoxia and hypercapnia (Acute) Diastolic heart failure (Acute) Anxiety (Acute) Cellulitis of leg, left (Acute) Angina pectoris (Chronic) GERD (gastroesophageal reflux disease) (Chronic) Depression (Chronic) Morbid obesity (Chronic) AICD (automatic cardioverter/defibrillator) present (Acute) placed at [facility] for ischemic dilated cardiomyopathy Sruthi Robles DR 01/27/21 HLD (hyperlipidemia) (Acute) ETOH abuse (Chronic) Drug dependence (Chronic) COPD (chronic obstructive pulmonary disease) (Chronic) Ischemic cardiomyopathy (Chronic) Afib (Chronic) Tobacco use disorder (Acute) Hx of hyperlipidemia (Acute) HTN (hypertension) (Chronic) CAD (coronary artery disease) (Chronic) Medical History (Updated 05/28/23 @ 22:39 by Farhat Valdez) Hypercapnia Acute non-ST elevation myocardial infarction (NSTEMI) Folliculitis Fluid overload Acute hypokalemia Acute respiratory failure with hypoxia and hypercapnia Acute on chronic combined systolic (congestive) and diastolic (congestive) heart failure Sepsis Left thigh pain Multifocal pneumonia Acute respiratory failure with hypoxia Hypokalemia Lactic acidosis Leukocytosis CHF exacerbation Consolidation of left lower lobe of lung Medication monitoring encounter Pulmonary nodules Acute on chronic heart failure with reduced ejection fraction and diastolic dysfunction Somnolence Alcohol use disorder, severe, dependence [facility] Dental infection Exertional chest pain Homelessness CHF (congestive heart failure) Pacemaker Cardiac arrest Surgical History (Updated 05/28/23 @ 22:18 by Farhat Valdez) H/O hand surgery History of coronary artery stent placement History of tonsillectomy History of hernia repair History of right knee joint replacement Social History (Updated 05/28/23 @ 22:20 by Farhat Valdez) Smoking/Tobacco Use Status: Current every day Tobacco Type: cigarettes and e-cigarettes Smoking risk assessment performed?: Yes Alcohol Intake: never Details: Former heavy alcohol use. Drug use: Occasionally Substance use type: heroin and amphetamines Housing: other Do you feel safe at home: Yes Do you feel safe in your relationship?: Yes Additional Social history: going through divorce, living in [facility] through homeless program Meds Allergies and Home Medications Allergies Allergy/AdvReac Type Severity Reaction Status Date / Time hydromorphone [From Dilaudid] Allergy Verified 05/28/23 20:26 Home Medications Medication Instructions Recorded Confirmed Type atorvastatin 80 mg tablet 80 mg PO DAILY #30 tabs 01/06/22 05/28/23 Rx isosorbide mononitrate 30 mg 30 mg PO DAILY 01/06/22 05/28/23 History tablet,extended release 24 hr pantoprazole 40 mg tablet,delayed 40 mg PO DAILY #30 tabs 01/06/22 05/28/23 Rx release (Protonix) ranolazine 500 mg tablet,extended 500 mg PO BID 01/06/22 05/28/23 History release,12 hr albuterol sulfate 90 mcg/actuation 2 inh inhalation Q4H PRN #1 ea 06/17/22 05/28/23 Rx breath activated powder inhaler nitroglycerin 0.4 mg sublingual 0.4 mg sublingual Q5-15M PRN chest 07/03/22 05/28/23 Rx tablet pain #90 tabs ipratropium 0.5 mg-albuterol 3 mg 3 ml UPD Q6H PRN PRN wheezing #180 09/25/22 05/28/23 Rx (2.5 mg base)/3 mL nebulization mL soln torsemide 20 mg tablet 60 mg (3 x 20 mg) PO DAILY #90 tabs 09/25/22 05/28/23 Rx acetaminophen 500 mg capsule 1,000 mg PO Q6H PRN 10/05/22 05/28/23 History melatonin 10 mg capsule 10 mg PO HS PRN 10/05/22 05/28/23 History multivitamin with iron-mineral 1 tab PO DAILY 10/05/22 05/28/23 History (Super Multiple tablet) spironolactone 25 mg tablet 25 mg PO DAILY 10/05/22 05/28/23 History folic acid 1 mg tablet 1,000 mcg PO DAILY 10/08/22 05/28/23 History tiotropium 2.5 mcg-olodaterol 2.5 2 puff inhalation DAILY #4 grams 12/17/22 05/28/23 Rx mcg/actuation mist for inhalation (Stiolto Respimat) azithromycin 250 mg tablet 250 mg PO DAILY #30 tabs 12/18/22 05/28/23 Rx buspirone 15 mg tablet 15 mg PO TID 12/22/22 05/28/23 History gabapentin 100 mg capsule 400 mg PO QID 12/22/22 05/28/23 History buprenorphine 8 mg-naloxone 2 mg 1 film buccal DAILY 01/20/23 05/28/23 History sublingual film amiodarone 100 mg tablet 100 mg PO DAILY #90 tabs 02/02/23 05/28/23 Rx aspirin 81 mg tablet,delayed 81 mg PO DAILY #90 tabs 02/02/23 05/28/23 Rx release escitalopram oxalate 10 mg tablet 10 mg PO DAILY 02/05/23 05/28/23 History hydroxyzine HCl 10 mg tablet 10 mg PO TID 02/05/23 05/28/23 History polyethylene glycol 3350 17 gram 17 g PO PRN PRN 02/05/23 05/28/23 History oral powder packet hydroxyzine HCl 50 mg tablet 50 mg PO TID PRN anxiety #30 tabs 02/26/23 05/28/23 Rx apixaban 5 mg tablet (Eliquis) 5 mg PO BID #60 tabs 03/01/23 05/28/23 Rx Exam Narrative Exam Narrative: GEN: Alert and oriented, pleasant and cooperative, gives linear history. No acute distress at rest. HEENT: Head with ~15cm stapled laceration left parietal. Conjunctiva clear, no icterus. PEERL, EOMI. no rhinorrhea. MMM, OP benign. Neck is supple with no masses or lymphadenopathy, trachea midline LUNGS: Diffusely diminished with poor air movement. I do not appreciate rales. Prolonged expriation. Normal effort in bed wearing O2 via NC. CV: RRR with no murmurs, gallops, or rubs. ABD: +BS, soft, NT/ND EXT: no cyanosis, clubbing. trace chela ankle edema MSK: No joint redness or swelling NEURO: CN 2-12 grossly intact. Normal movement of 4 extremities. Normal speech and coordination SKIN: No rashes or open wounds. Venous stasis changes in LE. PSYCH: mildly anxious mood and affect, normal thought process. Results Imaging Chest x-ray: report reviewed (No acute findings. ) and image reviewed CT scan - chest: report reviewed (1. New moderate in severity pulmonary ground-glass disease may reflect atypical infection, pneumonitis, asymmetric edema among other entities. 2. A minor ileus of mid small bowel without mechanical obstruction. 3. Incidental findings as described. ) CT scan - pelvis: report reviewed (see above re: CT C/A/P) Additional studies: CT head/cervical spine: 1. No acute intracranial findings. 2. Left frontoparietal scalp laceration. Labs 05/28/23 17:45 05/28/23 17:45 Labs: Laboratory Results - last 24 hr 05/28/23 05/28/23 05/28/23 17:45 18:23 19:20 WBC 16.58 H RBC 4.62 Hgb 14.0 Hct 41.0 MCV 89 MCH 30.3 MCHC 34.1 RDW 13.8 Plt Count 379 MPV 9.3 Immature Gran % 0.5 Neutrophils % 86.9 Lymphocytes % 7.5 Monocytes % 4.2 Eosinophils % 0.4 Basophils % 0.5 Nucleated RBC % 0.0 Absolute Neutrophils 14.41 H Absolute Lymphocytes 1.24 Absolute Monocytes 0.70 Absolute Eosinophils 0.07 Absolute Basophils 0.08 PT 13.7 H INR 1.4 H APTT 31.4 Sodium 134 L Potassium 4.1 Chloride 96 L Carbon Dioxide 28.0 Anion Gap 10.0 BUN 27 H Creatinine 2.8 H Est GFR (CKD-EPI 2020) 26.00 Glucose 89 Calcium 9.8 Magnesium 1.9 Total Bilirubin 0.9 AST 48 H ALT 23 Alkaline Phosphatase 96 Troponin I < 50 NT-Pro-B Natriuret Pep Total Protein 7.5 Albumin 3.5 Procalcitonin 0.2 Ethyl Alcohol < 3.0 COVID-19 Source Nasopharynx SARS-CoV-2 (PCR) Negative Influenza Type A (PCR) Negative Influenza Type B (PCR) Negative RSV (PCR) Negative 05/28/23 05/28/23 20:05 21:02 WBC RBC Hgb Hct MCV MCH MCHC RDW Plt Count MPV Immature Gran % Neutrophils % Lymphocytes % Monocytes % Eosinophils % Basophils % Nucleated RBC % Absolute Neutrophils Absolute Lymphocytes Absolute Monocytes Absolute Eosinophils Absolute Basophils PT INR APTT Sodium Potassium Chloride Carbon Dioxide Anion Gap BUN Creatinine Est GFR (CKD-EPI 2020) Glucose Calcium Magnesium Total Bilirubin AST ALT Alkaline Phosphatase Troponin I < 50 NT-Pro-B Natriuret Pep 1124 H Total Protein Albumin Procalcitonin Ethyl Alcohol COVID-19 Source SARS-CoV-2 (PCR) Influenza Type A (PCR) Influenza Type B (PCR) RSV (PCR) Last Vital Signs Pulse 68 05/28/23 20:21 Resp 10 L 05/28/23 20:21 BP 99/53 L 05/28/23 20:21 Pulse Ox 94 05/28/23 17:32 Time Spent Time spent with Patient: 55-74 minutes Time was spent: preparing to see the patient(eg.review tests), obtaining and/or reviewing separately otained hiistory, ordering medications,tests, procedures, referring, communicating with other health dog daycare provider, indepentently interpreting results and counseling the patient
[2023-05-28] MEDS: Normal Saline Flush 10 ML SYR IVP ×2 (22:50→23:27)
--- NOTE | 2023-05-28 22:56 | RESPIRATORY ---
Pt. states he has O2 baseliine 4L/min. DME: [facility]. Pt. aslo states uses CPAP machine at night but did not bring it here with him. RT asked pt. to use the one hopsital provides pt. refused it at this time due to feeling anxious and states he will be fine without it. RT avised pt. to let us know if he changes his mind later.
[2023-05-28] MEDS: DOXYCYCLINE 100 MG in Normal Saline 100 ML IVPB (23:27)
[2023-05-28] MEDS: hydrOXYzine HCL 10 MG TAB PO (23:32)
[2023-05-28] MEDS: LORazepam 1 MG TAB PO (23:32)
[2023-05-28] MEDS: Acetaminophen 325 MG TAB PO (23:32)
[2023-05-28] MEDS: Normal Saline 500 ML IV (23:44)
[2023-05-29] VITALS (8 sets, daily range): BP systolic 97–138; BP diastolic 59–77; PULSE 56–78; RESP 12–18; TEMP 35.5–36.4; O2SAT 78–97
[2023-05-29 00:19] LABS: Bilirubin Negative (Negative); Blood Moderate (Negative); Clarity Clear (Clear); Glucose Negative (Negative); Ketones Negative (Negative); Leukocyte Esterase Negative (Negative); Nitrite Negative (Negative); Specific Gravity 1.015 (1.005-1.025); Urobilinogen 0.2 mg/dL (Up to 0.2)
[2023-05-29 00:25] LABS: Bacteria Rare HPF (Negative); C & S Indicated? No; Casts Negative LPF (Negative); Crystals Negative HPF (Negative); Epithelial Cells Negative HPF (Negative); Mucus Negative (Negative); WBC Negative HPF (0-5)
[2023-05-29 00:31] LABS: *AMPHETAMINES SCREEN URINE Positive (Negative); *BARBITURATES SCREEN URINE Negative (Negative); *BENZODIAZEPINES SCREEN URINE Negative (Negative); Cannabinoids THC Negative (Negative); Cocaine Screen,Urine Negative (Negative); METHADONE URINE SCREEN Negative (Negative); OPIATES URINE SCREEN Positive (Negative); Tricyclic Antidepressants Negative (Negative)
[2023-05-29] MEDS: methylPREDNISolone SUCC 125 MG VIAL 60 MG IVP ×2 (04:26→12:52)
[2023-05-29 06:57] LABS: Abs Immature Grans 0.13 10^3/uL (0.0-0.06); Absolute Lymphocyte Count 0.89 10^3/uL (1.2-3.4); Basophils % 0.1; HCT 37.5 % (40.0-50.0); HGB 12.9 g/dL (13.5-17.5); Immature Grans % 0.9; Lymphocytes % 6.3; MCH 30.5 pg (27.0-33.0); MCHC 34.4 % (32.0-36.0); MCV 89 fL (80-95); MPV 10.2 fL (8.0-11.0); Monocytes % 1.4; Neutrophils % 91.3; Platelet Count 333 10^3/uL (130-400); RBC 4.23 10^6/uL (4.36-5.78); WBC 14.08 10^3/uL (4.4-10.8)
[2023-05-29 06:58] LABS: Absolute Basophil Count 0.01 10^3/uL (0.0-0.2); Absolute Neutrophil Count 12.86 10^3/uL (1.2-6.7)
[2023-05-29 07:14] LABS: Anion Gap 9.5 mmol/L (3-11); BUN 26 mg/dL (7-18); CO2 23.5 mmol/L (21.0-32.0); CREATININE 1.6 mg/dL (0.70-1.30); Calcium 9.1 mg/dL (8.5-10.1); Chloride 100 mmol/L (98-107); Estimated GFR 50.88 (mL/min/1.73m2); Glucose 157 mg/dL (74-106); Potassium 4.4 mmol/L (3.5-5.1); Sodium 133 mmol/L (136-145)
[2023-05-29 07:25] LABS: Lab Add On Test DONE
[2023-05-29 07:37] LABS: Creatine Kinase 933 U/L (39-308)
--- NOTE | 2023-05-29 08:24 | INITIAL_ITS ---
Date of service: 05/29/23 Time of Service: 08:24 Care Management Initial Assmt Initial Assessment REASON FOR HOSPITALIZATION:: pneumonia PREVIOUS FUNCTIONAL STATUS/SOCIAL/FAMILY SUPPORTS:: Luis lives alone at the [facility] in [place] which he obtained through [employer]. He has a guaranteed room until the end of August. Luis has two adult children who live out of state in [place]. He is not currently employed, and was recently granted disability. He is independent at baseline with ADLs but uses a walker and a cane as needed and has home oxygen. CURRENT FUNCTIONAL STATUS:: Luis was sitting up in bed when CM met with him. He was pleasant and engaged easily with CM. Luis shared that he is in the top ten of the list for housing through [facility]. He hopes to secure an apartment by the time he is scheduled to leave the [facility] at the end of August. Luis informed CM that he has home oxygen at 4L/min but does not use it most of the time. He estimated that actual usage is probably about 2 hours/week. He shared that he is not convinced that he actually has COPD as his oxygen needs have actually decreased. He continues to receive suboxone through [facility] and uses [facility] for transportation. ADVANCE DIRECTIVES:: none Has patient been provided with info about the portal/API?: Yes Did the patient sign up for the portal?: No CODE STATUS:: Full Code INSURANCE COVERAGE / FINANCIAL ISSUES:: Medicaid CURRENT HOME/COMMUNITY SERVICES/EQUIPMENT:: walker and cane [facility] for [facility] maintenance treatment PRIMARY CARE PHYSICIAN:: Gerri Silverman POTENTIAL DISCHARGE NEEDS:: follow up with community providers PATIENT/FAMILY EDUCATION NEEDS:: Review of dsicharge instructions, limitations, follow up plan, discuss [employer] TRANSPORTATION:: via [facility] coordinated by CM PLAN:: Anticipate Luis will be discharged back to his hotel, possibly with new home health services. He will follow up with his PCP and plan of care and transport via [facility]. CM will continue to follow and support discharge needs. PFSH All Active Problems (Updated 05/28/23 @ 22:39 by Farhat Valdez) Elevated AST (SGOT) (Acute) Acute kidney failure (Acute) Fall (Acute) Laceration of head (Acute) Blunt head trauma (Acute) Blunt trauma of multiple sites of trunk (Acute) Pulmonary hypertension (Acute) Erectile dysfunction (Acute) On fpc drug therapy (Acute) History of Brittany's gangrene (Acute) Obesity, morbid, BMI 40.0-49.9 (Acute) Obesity hypoventilation syndrome (Chronic) Respiratory failure with hypoxia and hypercapnia (Acute) Diastolic heart failure (Acute) Anxiety (Acute) Cellulitis of leg, left (Acute) Angina pectoris (Chronic) GERD (gastroesophageal reflux disease) (Chronic) Depression (Chronic) Morbid obesity (Chronic) AICD (automatic cardioverter/defibrillator) present (Acute) placed at [facility] for ischemic dilated cardiomyopathy [employer] Margaret MACDONALD 01/27/21 RH HLD (hyperlipidemia) (Acute) ETOH abuse (Chronic) Drug dependence (Chronic) COPD (chronic obstructive pulmonary disease) (Chronic) Ischemic cardiomyopathy (Chronic) Afib (Chronic) Tobacco use disorder (Acute) Hx of hyperlipidemia (Acute) HTN (hypertension) (Chronic) CAD (coronary artery disease) (Chronic) Medical History (Updated 05/28/23 @ 22:39 by Farhat Valdez) Hypercapnia Acute non-ST elevation myocardial infarction (NSTEMI) Folliculitis Fluid overload Acute hypokalemia Acute respiratory failure with hypoxia and hypercapnia Acute on chronic combined systolic (congestive) and diastolic (congestive) heart failure Sepsis Left thigh pain Multifocal pneumonia Acute respiratory failure with hypoxia Hypokalemia Lactic acidosis Leukocytosis CHF exacerbation Consolidation of left lower lobe of lung Medication monitoring encounter Pulmonary nodules Acute on chronic heart failure with reduced ejection fraction and diastolic dysfunction Somnolence Alcohol use disorder, severe, dependence [facility] 01/21 Dental infection Exertional chest pain Homelessness CHF (congestive heart failure) Pacemaker Cardiac arrest Surgical History (Updated 05/28/23 @ 22:18 by Farhat Valdez) H/O hand surgery History of coronary artery stent placement History of tonsillectomy History of hernia repair History of right knee joint replacement Social History (Updated 05/28/23 @ 22:20 by Farhat Valdez) Smoking/Tobacco Use Status: Current every day Tobacco Type: cigarettes and e- cigarettes Smoking risk assessment performed?: Yes Alcohol Intake: never Details: Former heavy alcohol use. Drug use: Occasionally Substance use type: heroin and amphetamines Housing: other Do you feel safe at home: Yes Do you feel safe in your relationship?: Yes Additional Social history: going through divorce, living in [facility] through homeless program SDOH(Care Management) Screening Will the Patient Participate in the Screening?: Yes Do you worry about having a steady place to live?: yes Problems where you live: other In the past 12 months, have you had to go without electric, gas, oil or water in your home?: no Have you or anyone in your house had to go without enough food to eat?: no Has lack of transportation kept you from medical appointments or from doing things needed for daily living?: yes Has anyone in your support network made you feel unsafe for any reason?: no Health Related Social Needs Health related social needs: housing instability, housed, with risk of homelessness(Z59.811) and transportation insecurity(Z59.82)
[2023-05-29] MEDS: Tiotropium/Olodaterol 10 PUFF INHALER 2 PUFF IH (08:47)
[2023-05-29] MEDS: Gabapentin 100 MG CAP 400 MG PO ×4 (08:50→20:52)
[2023-05-29] MEDS: Normal Saline Flush 10 ML SYR IVP ×2 (08:50→21:04)
[2023-05-29] MEDS: Buprenorphine/Naloxone 8 mg/2 mg FILM 1 EACH SL (08:50)
[2023-05-29] MEDS: Buprenorphine/Naloxone 2 mg/0.5 mg FILM 1 EACH SL (08:50)
[2023-05-29] MEDS: Ranolazine 500 MG TABCR PO ×2 (08:51→20:52)
[2023-05-29] MEDS: Apixaban 5 MG TAB PO ×2 (08:52→20:52)
[2023-05-29] MEDS: Pantoprazole 40 MG TABCR PO (08:52)
[2023-05-29] MEDS: Escitalopram 10 MG TAB PO (08:52)
[2023-05-29] MEDS: Multivitamin w/Minerals TAB 1 TAB PO (08:52)
[2023-05-29] MEDS: Aspirin E.C. 81 MG TABEC PO (08:52)
[2023-05-29] MEDS: Folic Acid 1 MG TAB PO (08:52)
[2023-05-29] MEDS: busPIRone 15 MG TAB PO ×2 (08:53→20:52)
[2023-05-29] MEDS: Isosorbide Mononitrate 30 MG TABCR PO (08:53)
[2023-05-29] MEDS: Lactated Ringers 1,000 ML 85 ML IV (08:53)
[2023-05-29] MEDS: LORazepam 1 MG TAB PO ×3 (09:03→21:13)
[2023-05-29] MEDS: DOXYCYCLINE 100 MG in Normal Saline 100 ML IVPB ×2 (10:07→20:52)
[2023-05-29 14:42] LABS: Creatine Kinase 925 U/L (39-308)
[2023-05-29] MEDS: Acetaminophen 325 MG TAB PO (16:05)
[2023-05-29] MEDS: hydrOXYzine HCL 10 MG TAB PO ×2 (16:05→21:13)
--- NOTE | 2023-05-29 16:16 | W.PM.PROGNOT ---
Date of Service Date of service: 05/29/23 Time of Service: 16:16 Assessment and Plan Assessment and plan (1) Multifocal pneumonia: Assessment and plan: cont. Rocephin and doxycycline along w/ aerosolized bronchodilators, add IS and Acapella, attempt sputum cultures, blood cultures were sent (2) COPD (chronic obstructive pulmonary disease): Status: Chronic Assessment and plan: continue Ceftriaxone and doxycycline for his pneumonia along w/ DuoNeb aerosols. Patient has home oxygen but does not use regularly. He also has LARA but has not been compliant w/ his CPAP as he says that is does not work for him. I advised him to follow up w/ the sleep clinic to look at his settings. Patient is on Stiolto at home, continue the same. Qualifiers: COPD type: chronic bronchitis Chronic bronchitis type: simple Qualified Code(s): J41.0 - Simple chronic bronchitis (3) Acute kidney failure: Status: Acute Assessment and plan: avoid NSAID for his back pain and head injury in light of his LORI. continue iv fluids overnight. BUN and creatinine have improved from BUN 27 >26, creatinine 2.8 > 1.6, CT abdomen and pelvis no hydronephrosis, but small non-obstructive stone 2 mm in right renal superior pole Qualifiers: Acute renal failure type: unspecified Qualified Code(s): N17.9 - Acute kidney failure, unspecified (4) Elevated CK: Status: Acute Assessment and plan: not true rhabdomyolysis but probably d/t his falls. will monitor levels and continue iv fluid hydration (5) Fall: Status: Acute Assessment and plan: Case is reported as a mechanical slip an fall. He relates second fall to stiffness from the first. I do not appreciate a focal neurologic deficit. Walk with nursing, get PT if concern for sately at home. Qualifiers: Encounter type: initial encounter Qualified Code(s): W19.XXXA - Unspecified fall, initial encounter (6) Blunt head trauma: Status: Acute Assessment and plan: Suture in ED, looks good. CT head/neck negative for intracranial pathology. Qualifiers: Encounter type: initial encounter Qualified Code(s): S09.8XXA - Other specified injuries of head, initial encounter (7) Drug dependence: Status: Chronic Assessment and plan: On suboxone at [facility]. He reports recent taper of his dose, and I am concerned this may have been a trigger for his recent use. 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 Confirm and continue current Suboxone dose. 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 (8) Ischemic cardiomyopathy: Status: Chronic Assessment and plan: no chest pain or palpitations, negative troponin I x two last night. continue home meds of Ranexa, Imdur, ASA and atorvastatin but holding his diuretics in light of his dehydration; judicious iv fluids for next 24 hours, will dc when replete, and LORI has resolved. (9) Afib: Status: Chronic Assessment and plan: stable, heart tones sound to be in regular rhythm, chronically on amiodarone. EKG demonstrated sinus rhythm w/ no ischemic changes. Qualifiers: Atrial fibrillation type: paroxysmal Qualified Code(s): I48.0 - Paroxysmal atrial fibrillation (10) DVT prophylaxis: Status: Acute Assessment and plan: chronically on apixaban (11) Discharge planning issues: Status: Acute Assessment and plan: Full CODE patient plans to return to [facility] upon discharge. In light of his falls, which sound mechanical (tripped on threshold in doorway), I will ask for P.T. evaluation in the morning to assess discharge safety plan Subjective Subjective Interval history since last seen: Patient states that he feeling better today. Not short of breath, cough is minimally productive. Back pain is improved. Patient was admitted w/ multifocal pneumonia after presenting w/ a fall in which he sustained left frontal scalp laceration and hit his back but did not sustain any francie injury to his spine. (CT head and c spine and chest/abomen and pelvis negative except for his pneumonia). Exam Narrative Exam Narrative: Obese white male, alert and oriented x 3, no distress, wearing oxygen at 4 lpm Heent: large laceration over left frontal area that has been closed w/ georgina, no drainage Lungs: diffusely diminished breath sounds, no rhonchi or rales or wheezing Heart: RRR, no murmur Abdomen: obese, soft, nontender Extremities: no edema Objective Last Vital Signs Temp 36.0 C L 05/29/23 15:06 Pulse 63 05/29/23 15:06 Resp 18 05/29/23 15:06 BP 97/59 L 05/29/23 15:06 Pulse Ox 88 L 05/29/23 15:06 Laboratory Results - last 24 hr 05/28/23 05/28/23 05/28/23 17:45 18:23 19:20 WBC 16.58 H RBC 4.62 Hgb 14.0 Hct 41.0 MCV 89 MCH 30.3 MCHC 34.1 RDW 13.8 Plt Count 379 MPV 9.3 Immature Gran % 0.5 Neutrophils % 86.9 Lymphocytes % 7.5 Monocytes % 4.2 Eosinophils % 0.4 Basophils % 0.5 Nucleated RBC % 0.0 Absolute Neutrophils 14.41 H Absolute Lymphocytes 1.24 Absolute Monocytes 0.70 Absolute Eosinophils 0.07 Absolute Basophils 0.08 PT 13.7 H INR 1.4 H APTT 31.4 Sodium 134 L Potassium 4.1 Chloride 96 L Carbon Dioxide 28.0 Anion Gap 10.0 BUN 27 H Creatinine 2.8 H Est GFR (CKD-EPI 2020) 26.00 Glucose 89 Calcium 9.8 Magnesium 1.9 Total Bilirubin 0.9 AST 48 H ALT 23 Alkaline Phosphatase 96 Creatine Kinase Troponin I < 50 NT-Pro-B Natriuret Pep Total Protein 7.5 Albumin 3.5 Procalcitonin 0.2 Urine Color Urine Clarity Urine pH Ur Specific [place] Urine Protein Urine Ketones Urine Blood Urine Nitrite Urine Bilirubin Urine Urobilinogen Ur Leukocyte Esterase Urine RBC Urine WBC Ur Epithelial Cells Urine Crystals Urine Bacteria Urine Casts Urine Mucus Ur Culture Indicated? Urine Glucose Urine Opiates Screen Urine Methadone Screen Ur Barbiturates Screen Ur Tricyclics Screen Ur Amphetamines Screen U Benzodiazepines Scrn Urine Cocaine Screen Ur THC Screen Ethyl Alcohol < 3.0 COVID-19 Source Nasopharynx SARS-CoV-2 (PCR) Negative Influenza Type A (PCR) Negative Influenza Type B (PCR) Negative RSV (PCR) Negative Add-On Test Request 05/28/23 05/28/23 05/29/23 20:05 21:02 00:00 WBC RBC Hgb Hct MCV MCH MCHC RDW Plt Count MPV Immature Gran % Neutrophils % Lymphocytes % Monocytes % Eosinophils % Basophils % Nucleated RBC % Absolute Neutrophils Absolute Lymphocytes Absolute Monocytes Absolute Eosinophils Absolute Basophils PT INR APTT Sodium Potassium Chloride Carbon Dioxide Anion Gap BUN Creatinine Est GFR (CKD-EPI 2020) Glucose Calcium Magnesium Total Bilirubin AST ALT Alkaline Phosphatase Creatine Kinase Troponin I < 50 NT-Pro-B Natriuret Pep 1124 H Total Protein Albumin Procalcitonin Urine Color Yellow Urine Clarity Clear Urine pH 5.0 Ur Specific [place] 1.015 Urine Protein Trace H Urine Ketones Negative Urine Blood Moderate H Urine Nitrite Negative Urine Bilirubin Negative Urine Urobilinogen 0.2 Ur Leukocyte Esterase Negative Urine RBC 5-10 H Urine WBC Negative Ur Epithelial Cells Negative Urine Crystals Negative Urine Bacteria Rare Urine Casts Negative Urine Mucus Negative Ur Culture Indicated? No Urine Glucose Negative Urine Opiates Screen Positive A Urine Methadone Screen Negative Ur Barbiturates Screen Negative Ur Tricyclics Screen Negative Ur Amphetamines Screen Positive A U Benzodiazepines Scrn Negative Urine Cocaine Screen Negative Ur THC Screen Negative Ethyl Alcohol COVID-19 Source SARS-CoV-2 (PCR) Influenza Type A (PCR) Influenza Type B (PCR) RSV (PCR) Add-On Test Request 05/29/23 05/29/23 06:11 14:12 WBC 14.08 H RBC 4.23 L Hgb 12.9 L Hct 37.5 L MCV 89 MCH 30.5 MCHC 34.4 RDW 14.0 Plt Count 333 MPV 10.2 Immature Gran % 0.9 Neutrophils % 91.3 Lymphocytes % 6.3 Monocytes % 1.4 Eosinophils % 0.0 Basophils % 0.1 Nucleated RBC % 0.0 Absolute Neutrophils 12.86 H Absolute Lymphocytes 0.89 L Absolute Monocytes 0.20 Absolute Eosinophils 0.00 Absolute Basophils 0.01 PT INR APTT Sodium 133 L Potassium 4.4 Chloride 100 Carbon Dioxide 23.5 Anion Gap 9.5 BUN 26 H Creatinine 1.6 H D Est GFR (CKD-EPI 2020) 50.88 Glucose 157 H Calcium 9.1 Magnesium Total Bilirubin AST ALT Alkaline Phosphatase Creatine Kinase 933 H 925 H Troponin I NT-Pro-B Natriuret Pep Total Protein Albumin Procalcitonin Urine Color Urine Clarity Urine pH Ur Specific [place] Urine Protein Urine Ketones Urine Blood Urine Nitrite Urine Bilirubin Urine Urobilinogen Ur Leukocyte Esterase Urine RBC Urine WBC Ur Epithelial Cells Urine Crystals Urine Bacteria Urine Casts Urine Mucus Ur Culture Indicated? Urine Glucose Urine Opiates Screen Urine Methadone Screen Ur Barbiturates Screen Ur Tricyclics Screen Ur Amphetamines Screen U Benzodiazepines Scrn Urine Cocaine Screen Ur THC Screen Ethyl Alcohol COVID-19 Source SARS-CoV-2 (PCR) Influenza Type A (PCR) Influenza Type B (PCR) RSV (PCR) Add-On Test Request DONE Time Spent with Patient Time Spent with Patient: 35-49 minutes Time was spent: preparing to see the patient(eg.review tests), obtaining and/or reviewing separately otained hiistory, ordering medications,tests, procedures, referring, communicating with other health manager critical care unit, indepentently interpreting results, counseling the patient and care coordination
[2023-05-29] MEDS: Atorvastatin 40 MG TAB 80 MG PO (20:53)
[2023-05-29] MEDS: Lactated Ringers 1,000 ML 100 ML IV (20:56)
[2023-05-29] MEDS: cefTRIAXone 2 GM/50 ML BAG IV (22:25)
[2023-05-30] VITALS (9 sets, daily range): BP systolic 91–129; BP diastolic 46–73; PULSE 66–98; RESP 16–24; TEMP 34–36.7; O2SAT 75–94
[2023-05-30] MEDS: LORazepam 1 MG TAB PO ×5 (01:37→23:55)
--- NOTE | 2023-05-30 07:18 | IN_ITS ---
PT Notes Visit Reasons: pneumonia Inpatient Physical Therapy Evaluation Date: Referring Doctor: Dr. Bola Coombs PT Orders: PT CONSULT: Fall safety assessment fall, standard Precautions: Fall, standard Patient Profile/Admitting Diagnosis: 52 yo with polysubstance use disorder with recent opioid and amphetamine use on buprenorphine, tobacco smoking, CAD with HFpEF s/p AICD, pAfib, COPD/OHS on intermittent home O2 who presented to the ED after a fall with head trauma. He states he was in his normal state of health until the day prior to admission when he slipped on the wet floor of the bathroom and hit his back an back of his neck against the toilet. Today he woke up with feeling more sore and stiff in his neck and back of legs and stiff to the point where he had some difficulty walking. He was coming in from outside his apartment and tripped on the threshhold and fell forward and hit his head. He did not have focal weakness, chest pain, or dizziness. No LOC. He does feel like since the fall the day prior he has been moving stiffly and didn't have his normal reations to catch himself. He did take ibuprofen and tylenol this morning for pain. 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 (Acute) History of Brittany's gangrene (Acute) Obesity, morbid, BMI 40.0-49.9 (Acute) Obesity hypoventilation syndrome (Chronic) Respiratory failure with hypoxia and hypercapnia (Acute) Diastolic heart failure (Acute) Anxiety (Acute) Cellulitis of leg, left (Acute) Angina pectoris (Chronic) GERD (gastroesophageal reflux disease) (Chronic) Depression (Chronic) Morbid obesity (Chronic) AICD (automatic cardioverter/defibrillator) present (Acute) placed at [facility] for ischemic dilated cardiomyopathy Sruthi Robles DR 01/27/21 RHHLD (hyperlipidemia) (Acute) ETOH abuse (Chronic) Drug dependence (Chronic) COPD (chronic obstructive pulmonary disease) (Chronic) Ischemic cardiomyopathy (Chronic) Afib (Chronic) Tobacco use disorder (Acute) Hx of hyperlipidemia (Acute) HTN (hypertension) (Chronic) CAD (coronary artery disease) (Chronic) Medical History (Updated 05/28/23 @ 22:39 by Farhat Valdez) Hypercapnia Acute non-ST elevation myocardial infarction (NSTEMI) Folliculitis Fluid overload Acute hypokalemia Acute respiratory failure with hypoxia and hypercapnia Acute on chronic combined systolic (congestive) and diastolic (congestive) heart failure Sepsis Left thigh pain Multifocal pneumonia Acute respiratory failure with hypoxia Hypokalemia Lactic acidosis Leukocytosis CHF exacerbation Consolidation of left lower lobe of lung Medication monitoring encounter Pulmonary nodules Acute on chronic heart failure with reduced ejection fraction and diastolic dysfunction Somnolence Alcohol use disorder, severe, dependence [facility] 01/21Dental infection Exertional chest pain Homelessness CHF (congestive heart failure) Pacemaker Cardiac arrest Surgical History (Updated 05/28/23 @ 22:18 by Farhat Valdez) H/O hand surgery History of coronary artery stent placement History of tonsillectomy History of hernia repair History of right knee joint replacement Social History/Home Situation: Lives alone at [facility]. Not employed, . Independent with all aspects of ADLs prior to admission Equipment Owned/DME: Supplemental O2 for nighttime use Subjective: Luis states that he is hoping to go home today. Has some headache type symptoms behind his eyes. Denies shortness of breath however nursing is concerned with his O2 as they administer 4 L via nasal cannula. Social History/Home Situation: Lives alone in a private home with one-step to enter. Recently . Independent with all aspects of ADLs prior to admission Equipment Owned/DME: None Objective: General Observation: Sitting edge of bed with. IV left upper extremity, supplemental O2 4 L. [place] on laceration left superior aspect of the scalp no drainage. Mental Status: Alert and oriented as to person, place, time, and purpose. Able to pay attention, focus, and respond appropriately. Pain: Headache behind eyes Vital Signs: Monitored by nursing staff ROM: Right Upper Extremity: Shoulder Flexion WFL. Shoulder abduction WFL. Elbow flexion WFL. Wrist flexion WFL. Functional opening and closing of hand WFL. Left Upper Extremity: Shoulder Flexion WFL. Shoulder abduction WFL. Elbow flexion WFL. Wrist flexion WFL. Functional opening and closing of hand WFL. Right Lower Extremity: Hip flexion WFL. Hip abduction WFL. Knee flexion WFL. Ankle dorsiflexion WFL. Ankle plantarflexion WFL. Left Lower Extremity: Hip flexion WFL. Hip abduction WFL. Knee flexion WFL. Ankle dorsiflexion WFL. Ankle plantarflexion WFL. Strength: Right Upper Extremity: Shoulder flexors 4/5. Shoulder abductors 4/5. Elbow flexors 4/5. Elbow extensors 5/5. Licensing Coordinator strong. Left Upper Extremity: Shoulder flexors 4/5. Shoulder abductors 4/5. Elbow flexors 4/5. Elbow extensors 5/5. Licensing Coordinator strong. Right Lower Extremity: Hip flexors 4/5. Hip abductors 4/5. Knee flexors 5/5. Knee extensors 5/5. Ankle dorsiflexors 5/5. Ankle plantarflexors 5/5. Left Lower Extremity: Hip flexors 4/5. Hip abductors 4/5. Knee flexors 5/5. Knee extensors 5/5. Ankle dorsiflexors 5/5. Ankle plantarflexors 5/5. Bed Mobility/Transfers: Rolling independent Supine to sit independent Sit to supine independent Sit to stand independent Stand to sit independent Reclining chair to bed independent Gait: Instructed patient with level surface ambulation of 25 feet X2 requiring standby assist. No assistive device needed however gait speed minimally reduced. 4 L of oxygen via [place] needed. Patient did not report shortness of breath and fatigue after activity. No loss of balance. No report of chest pain. Balance: Static Sitting: Normal Dynamic Sitting: Normal Static Standing: Good Dynamic Standing: Good Special Tests: Mobility Limitations Standardized Measure [facility] 6 clicks Basic Mobility Inpatient Short Form: Raw Score: 23 CMS Score: 11% deficit Negative Romberg Informed Consent/Education: Patient was instructed in purpose of PT consult and plan of care. Agreeable to proceed with established PT POC to achieve personal goals. Assessment: Will plan on seeing patient for progression of ambulation distance and streng thening exercises for bilateral lower extremities. No significant balance deficits. Patient presents with clinical signs and symptoms consistent with current/admitting diagnoses that have resulted to mobility limitations, gait instability, generalized weakness, and overall ADL decline as demonstrated by the following impairment level findings: 1. Decreased strength to B LE major muscle groups 2. Impaired activity tolerance Impairments are contributing to the following functional limitations: 1. Difficulty with ambulation 2. Increased completion time for mobility ADL performance 3. Increased risk for falls 60 Patient is assessed as a [id number] moderate complexity based on the following: History: 52-year-old male with past medical history as indicated above Examination: Demonstrable impairment in strength, balance, and mobility level with underlying impairments and functional limitations as exhibited above as well as deficit score of 11% utilizing the [facility] Mobility Inpatient Short Form Presentation: Evolving Decision Makin moderate complexity Goals: Goals X1 week 1. Independent gait on level surface with use of no AD for at least 300 feet without report of pain nor dyspnea 2. Independent stair negotiation while holding onto 1 rails for at least 3 steps without report of pain nor dyspnea 3. Independent with home exercise program 4. Good static and dynamic standing balance/tolerance Plan of Care/Treatment Plan: 1-2x/day, 7 days/week x 1 week. Plan of care has been reviewed with the BAR ASSISTANT providing the service under Physical Therapy direction. Initiate Physical Therapy intervention for pain management as needed, strengthening, bed mobility, transfers, gait, stairs, balance training, and use of assistive device. DISCHARGE RECOMMENDATIONS: [X] Home with no services. [] Home with services [specify] [] Home with outpatient PT [] [] SNF for continued rehabilitation [] [] Snf Care [] [] SNF versus LTC based on ability to participate and progress [] TREATMENT CODE/TIME: 87442 x 20 minutes, 7:15-7:30 Thank you for the opportunity to participate in the care of this patient. Please sign an return this page within 30 days if you agree with the above POC. Thank you! Physician Signature Date [facility] Giovani Maria PT, DPT Disclaimer: This note was created using iovation voice recognition software. It was reviewed for major content. However, there may be multiple small discrepancies and errors due to the voice recognition aspects of the software.
[2023-05-30 07:28] LABS: Abs Immature Grans 0.19 10^3/uL (0.0-0.06); Absolute Basophil Count 0.04 10^3/uL (0.0-0.2); Absolute Lymphocyte Count 0.76 10^3/uL (1.2-3.4); Basophils % 0.2; Eosinophils % 0.5; HCT 38.2 % (40.0-50.0); Lymphocytes % 4.1; MCH 30.4 pg (27.0-33.0); MCV 90 fL (80-95); MPV 10.2 fL (8.0-11.0); Monocytes % 3.3; Neutrophils % 90.9; Platelet Count 376 10^3/uL (130-400); RBC 4.27 10^6/uL (4.36-5.78); RDW 14.5 % (11.8-14.1); WBC 18.46 10^3/uL (4.4-10.8)
[2023-05-30 07:39] LABS: Anion Gap 6.4 mmol/L (3-11); BUN 22 mg/dL (7-18); CO2 30.6 mmol/L (21.0-32.0); CREATININE 1.2 mg/dL (0.70-1.30); Calcium 9.9 mg/dL (8.5-10.1); Chloride 101 mmol/L (98-107); Creatine Kinase 415 U/L (39-308); Estimated GFR 71.86 (mL/min/1.73m2); Glucose 136 mg/dL (74-106); Potassium 4.1 mmol/L (3.5-5.1); Sodium 138 mmol/L (136-145)
[2023-05-30 07:43] LABS: Absolute Eosinophil Count 0.09 10^3/uL (0.0-0.7); Absolute Monocyte Count 0.61 10^3/uL (0.1-0.8); Absolute Neutrophil Count 16.78 10^3/uL (1.2-6.7)
[2023-05-30] MEDS: Tiotropium/Olodaterol 10 PUFF INHALER 2 PUFF IH (08:24)
[2023-05-30] MEDS: hydrOXYzine HCL 10 MG TAB PO ×3 (08:33→19:37)
[2023-05-30] MEDS: Normal Saline Flush 10 ML SYR IVP ×4 (08:33→19:37)
[2023-05-30] MEDS: Buprenorphine/Naloxone 2 mg/0.5 mg FILM 1 EACH SL (08:33)
[2023-05-30] MEDS: Escitalopram 10 MG TAB PO (08:33)
[2023-05-30] MEDS: Buprenorphine/Naloxone 8 mg/2 mg FILM 1 EACH SL (08:33)
[2023-05-30] MEDS: Multivitamin w/Minerals TAB 1 TAB PO (08:34)
[2023-05-30] MEDS: predniSONE 20 MG TAB 40 MG PO (08:34)
[2023-05-30] MEDS: Pantoprazole 40 MG TABCR PO (08:34)
[2023-05-30] MEDS: busPIRone 15 MG TAB PO ×3 (08:34→19:38)
[2023-05-30] MEDS: Gabapentin 100 MG CAP 400 MG PO ×4 (08:34→19:37)
[2023-05-30] MEDS: Ranolazine 500 MG TABCR PO ×2 (08:34→19:37)
[2023-05-30] MEDS: Folic Acid 1 MG TAB PO (08:34)
[2023-05-30] MEDS: Isosorbide Mononitrate 30 MG TABCR PO (08:34)
[2023-05-30] MEDS: Aspirin E.C. 81 MG TABEC PO (08:34)
[2023-05-30] MEDS: Apixaban 5 MG TAB PO ×2 (08:34→19:38)
[2023-05-30] MEDS: Amiodarone 200 MG TAB 100 MG PO (08:35)
[2023-05-30] MEDS: Lactated Ringers 1,000 ML 100 ML IV (08:37)
[2023-05-30] MEDS: DOXYCYCLINE 100 MG in Normal Saline 100 ML IVPB ×2 (09:50→22:36)
--- NOTE | 2023-05-30 12:02 | DSE_ITS ---
Date of service: 05/30/23 Time of Service: 12:02 DS: Diagnosis Discharge Diagnosis (1) Multifocal pneumonia: Asessment and Plan: Treated with doxycycline and Rocephin he was kept on his azithromycin and will be discharged home on azithromycin along with Augmentin. He will receive Augmentin 500 mg p.o. 3 times daily for 7 days. He also be placed on prednisone 40 mg daily for 5 days. He was treated with IV steroids on admission and then s witch to oral prednisone. He will go home on home oxygen which he already has. Exercise pulse oximetry demonstrated his needs to be as follows. Repeat chest x-ray in 3 weeks. Patient should follow-up with his primary care provider next week and he should see his web editor within a month. (2) COPD (chronic obstructive pulmonary disease): Status: Chronic Asessment and Plan: Continue same home inhalers continue azithromycin as part of his current clinical trial. Augmentin and prednisone as noted above. Follow-up chest x-ray in 2 to 3 weeks. (3) Acute kidney failure: Status: Acute Asessment and Plan: Patient presented with severe dehydration and azotemia BUN of 27 creatinine 2.8 which resolved and came down to a BUN of 22 creatinine 1.2 after IV hydration and holding his diuretics. This is probably exacerbated by recent episode of diarrhea which was antecedent to his pneumonia and his fall. He should have a follow-up BMP in the next week this can be ordered by his primary care provider. Otherwise resumption of all of his home medications. (4) Elevated CK: Status: Acute Asessment and Plan: CK was elevated at 933 on admission probably secondary to his recent falls however at the time of discharge his CK level gone down to 415. No further monitoring necessary. (5) Fall: Status: Acute (6) Blunt head trauma: Status: Acute Asessment and Plan: Patient sustained a scalp laceration on the left frontal area that required primary closure in the emergency department with skin georgina. These should be removed in the next week to 10 days. (7) Drug dependence: Status: Chronic (8) Ischemic cardiomyopathy: Status: Chronic (9) Afib: Status: Chronic Discharge Plan Disposition Patient Disposition: Home Condition: Improving Discharge Details Reason For Visit: pneumonia Admit Date/Time: 05/28/23 19:43 Admit Provider: Farhat Valdez Attending Provider: Farhat Valdez Primary Care Provider: Gerri Silverman Hospital Course Hospital Course: 52-year-old male with a history of multiple medical problems including coronary artery disease with previous myocardial infarction and in-hospital cardiac arrest at [facility], status post AICD placement, history of diastolic heart failure, atrial fibrillation controlled on amiodarone and anticoagulation, hypertension, hyperlipidemia, previous substance abuse disorder came in to the emergency department with a fall striking his head and his lower back. He did sustain a scalp laceration on the left frontal area about 10 cm in size that was controlled with primary closure with georgina. Imaging included chest abdomen pelvic CT as well as the head and cervical CT. Head and cervical CT was limited due to motion artifact but there is no acute intracranial process large laceration was noted over the left frontal and parietal bones but no fracture was seen and no subluxation of the cervical spine. Chest abdomen pelvic CT demonstrated multifocal groundglass opacities bilaterally consistent with pneumonia but no evidence of PE and no evidence of thoracic aortic aneurysm or dissection. He has some fluid-filled loops in the small bowel area consistent with an enteritis. He also was found to have a right nephrolithiasis but no obstructive uropathy. Patient gave additional history that antecedent to his fall he did have a few days of diarrhea. Further evaluation included laboratory studies that showed he had prerenal azotemia with a BUN of 27 creatinine 2.8. He was given IV fluids and hydrated over the next couple of days bringing his BUN and creatinine down to 22 and 1.2. Blood cultures were obtained came back no growth sputum culture was obtained Gram stain showed few white cells rare epithelial cells rare mixed gram-positive bentley none predominant and rare yeast. He was empirically treated for his pneumonia with Rocephin and doxycycline. Patient still required oxygen at the time of discharge however he has home oxygen which she only uses intermittently. Exercise pulse oximetry test was performed on the day of discharge to assess his oxygen needs. See respiratory therapist note for details. Patient will be discharged home on a 7-day course of Augmentin 500 mg p.o. 3 times daily along with prednisone 40 mg daily for 5 d ays. He was treated in the hospital with IV corticosteroids and then switched to prednisone. He will be maintained on his azithromycin which she is taking through a pulmonary drug study through Dr. Sharif's office. Follow-up with his primary care provider as recommended within 1 week follow-up chest x-ray is recommended in 2 weeks. Also recommend his primary care provider recheck his electrolytes and BUN and creatinine in a week. Home Meds and New Rx's Prescriptions: New amoxicillin-pot clavulanate [Augmentin] 500-125 mg tablet 1 tab PO TID 7 Days Qty: 21 0RF prednisone 20 mg tablet 40 mg PO DAILY 5 Days Qty: 10 0RF Continued nitroglycerin 0.4 mg tablet, sublingual 0.4 mg sublingual Q5-15M PRN (Reason: chest pain) Qty: 90 3RF Rx Instructions: do not exceed 3 doses per episode folic acid 1 mg tablet 1,000 mcg PO DAILY Patient Comments: 10/07/22 per PCP prescribed as 1 mg daily RH azithromycin 250 mg tablet 250 mg PO DAILY Qty: 30 12RF gabapentin 100 mg capsule 400 mg PO QID buspirone 15 mg tablet 15 mg PO TID acetaminophen 500 mg capsule 1,000 mg PO Q6H PRN spironolactone 25 mg tablet 25 mg PO DAILY Super Multiple Tablet 1 tab PO DAILY melatonin 10 mg capsule 10 mg PO HS PRN Stiolto Respimat 2.5-2.5 mcg/actuation mist 2 puff inhalation DAILY Qty: 4 12RF aspirin 81 mg tablet,delayed release (DR/EC) 81 mg PO DAILY Qty: 90 3RF amiodarone 100 mg tablet 100 mg PO DAILY Qty: 90 3RF Eliquis 5 mg tablet 5 mg PO BID Qty: 60 12RF albuterol sulfate 90 mcg/actuation aerosol powdr breath activated 2 inh inhalation Q4H PRNQty: 1 0RF ipratropium-albuterol 0.5 mg-3 mg(2.5 mg base)/3 mL Solution For Nebulization 3 ml UPD Q6H PRN PRN (Reason: wheezing) Qty: 180 0RF torsemide 20 mg tablet 60 mg PO DAILY Qty: 90 3RF Rx Instructions: 40 mg in am, 20 mg around 2p buprenorphine-naloxone 8-2 mg Film 1 film BUCCAL DAILY Rx Instructions: in addition to 2/0.5 mg for total = 10/2.5 polyethylene glycol 3350 17 gram Powder In Packet 17 g PO PRN PRN hydroxyzine HCl 10 mg Tablet 10 mg PO TID Patient Comments: unsure total dose escitalopram oxalate 10 mg Tablet 10 mg PO DAILY buprenorphine-naloxone [Suboxone] 2-0.5 mg film 1 film sublingual DAILY Rx Instructions: in addition to 8/2 film for total 10/2.5 (confirmed w/KADEN 05/29/23) isosorbide mononitrate 30 mg Tablet Extended Release 24 Hr 30 mg PO DAILY ranolazine 500 mg Tablet Extended Release 12 Hr 500 mg PO BID atorvastatin 80 mg tablet 80 mg PO DAILY Qty: 30 0RF pantoprazole [Protonix] 40 mg tablet,delayed release (DR/EC) 40 mg PO DAILY Qty: 30 0RF Patient Comments: probably but unsure hydroxyzine HCl 50 mg tablet 50 mg PO TID PRN (Reason: anxiety) Qty: 30 0RF Patient Comments: unsure total dose Discharge Instructions Instructions: Bacterial Pneumonia (DC) Referrals: Gerri Silverman [Primary Care Provider] - (needs follow up in the next week) Activity:: Activity as Tolerated Equipment/Supplies:: No Equipment Needed Diet:: Normal Diet Discharge Orders Discharge Orders: Discharge Order (Routine); Ordered 05/30/23 Ordered By: Bola Coombs Other Ambulatory Orders: XR chest 2V PA & lateral (Routine) Timeframe: 2 Weeks Location: None Selected Ordered By: Bola Coombs DS: Summary Time Spent with Patient providing and/or coordinating discharge services: Greater than 30 minutes Specific discharge activities: Interview/exam of patient; review of discharge instructions, completion of prescriptions/discharge instructions; discussion w/ nursing and CM; documentation of hospital visit Status at Discharge Functional status at discharge: independent ambulation Overall status at discharge: patient is progressing back to baseline Mental Status: mental status grossly normal Speech and Movement: speech and movement normal Mood: congruent mood Affect: normal affect Quality:SDOH Health Related Social Needs: Health related social needs risk of homeless, transpo insecurity Exam Narrative Exam Narrative: Pramod states he is feeling markedly better today he does have a cough and bringing up some whitish mucus he has had no fevers no rigors. Chest is barrel chested lungs are clear but diffusely diminished no rhonchi or wheezing Heart is regular Extremities without edema HEENT frontal laceration of the left side of his head is closed with georgina there is no purulent drainage. Psych Mental Status: mental status grossly normal Speech and Movement: speech and movement normal Mood: congruent mood Affect: normal affect DS: Data Vitals/I&O Vitals and I&O: Vital Signs Temperature 36.0 C L 05/30/23 11:04 Temperature Source Tympanic 05/30/23 11:04 Pulse 76 05/30/23 11:04 Pulse Rhythm Regular 05/30/23 08:39 Pulse 68 05/28/23 20:21 Respiratory Rate 16 05/30/23 11:04 Respiratory Effort Normal, Labored 05/30/23 08:39 Respiratory Depth Deep 05/30/23 08:39 Respiratory Pattern Irregular 05/30/23 08:39 Blood Pressure 107/69 05/30/23 11:04 Blood Pressure Mean 68 05/28/23 20:21 Pulse Oximetry 85 L 05/30/23 11:04 Oxygen Delivery Method Nasal Cannula 05/30/23 11:04 Oxygen Flow Rate 4 05/30/23 11:04 Pain Level 0 05/30/23 11:04 Comment pT has 7/10 pain behind his eyes. 05/30/23 08:04 Intake & Output 05/29/23 05/30/23 05/30/23 23:59 11:59 23:59 Intake Total 1200 / 1900 2243.333 / 2243.333 Output Total 540 / 1100 850 / 850 Balance 660 / 800 1393.333 / 1393.333 Intake: IV 1200 / 1900 2243.333 / 2243.333 Output: Urine 540 / 1100 850 / 850 Other: Urine Color Light Lashay Yellow Urine Appearance Clear Clear Urine Odor None None Comment pT independent in the bathroom pt voiding independently in the bathroom Voiding Methods Urinal Toilet Data Completed and Pending Labs on day of discharge: Labs from last 24 hours 05/30/23 05/30/23 05/29/23 06:25 01:46 14:12 WBC 18.46 H RBC 4.27 L Hgb 13.0 L Hct 38.2 L MCV 90 MCH 30.4 MCHC 34.0 RDW 14.5 H Plt Count 376 MPV 10.2 Immature Gran % 1.0 Neutrophils % 90.9 Lymphocytes % 4.1 Monocytes % 3.3 Eosinophils % 0.5 Basophils % 0.2 Nucleated RBC % 0.0 Absolute Neutrophils 16.78 H Absolute Lymphocytes 0.76 L Absolute Monocytes 0.61 Absolute Eosinophils 0.09 Absolute Basophils 0.04 Sodium 138 Potassium 4.1 Chloride 101 Carbon Dioxide 30.6 Anion Gap 6.4 BUN 22 H Creatinine 1.2 Est GFR (CKD-EPI 2020) 71.86 Glucose 136 H Calcium 9.9 Creatine Kinase 415 H 925 H Urine Myoglobin Pending 05/30/23 01:43 Sputum Sputum Culture - Pending Preliminary micro results at discharge 05/30/23 01:43 Sputum Culture - Pending Sputum 05/28/23 19:20 Blood Culture - Preliminary Blood NO GROWTH 24 HOURS 05/28/23 19:20 Blood Culture - Preliminary Blood NO GROWTH 24 HOURS PFSH All Active Problems Community acquired pneumonia (Acute) Discharge planning issues (Acute) DVT prophylaxis (Acute) Elevated CK (Acute) Elevated AST (SGOT) (Acute) Acute kidney failure (Acute) Fall (Acute) Laceration of head (Acute) Blunt head trauma (Acute) Blunt trauma of multiple sites of trunk (Acute) Pulmonary hypertension (Acute) Erectile dysfunction (Acute) On detention drug therapy (Acute) History of Brittany's gangrene (Acute) Obesity, morbid, BMI 40.0-49.9 (Acute) Obesity hypoventilation syndrome (Chronic) Respiratory failure with hypoxia and hypercapnia (Acute) Diastolic heart failure (Acute) Anxiety (Acute) Cellulitis of leg, left (Acute) Angina pectoris (Chronic) GERD (gastroesophageal reflux disease) (Chronic) Depression (Chronic) Morbid obesity (Chronic) AICD (automatic cardioverter/defibrillator) present (Acute) placed at [facility] for ischemic dilated cardiomyopathy [employer] 01/27/21 RH HLD (hyperlipidemia) (Acute) ETOH abuse (Chronic) Drug dependence (Chronic) COPD (chronic obstructive pulmonary disease) (Chronic) Ischemic cardiomyopathy (Chronic) Afib (Chronic) Tobacco use disorder (Acute) Hx of hyperlipidemia (Acute) HTN (hypertension) (Chronic) CAD (coronary artery disease) (Chronic) Medical History Hypercapnia Acute non-ST elevation myocardial infarction (NSTEMI) Folliculitis Fluid overload Acute hypokalemia Acute respiratory failure with hypoxia and hypercapnia Acute on chronic combined systolic (congestive) and diastolic (congestive) heart failure Sepsis Left thigh pain Multifocal pneumonia Acute respiratory failure with hypoxia Hypokalemia Lactic acidosis Leukocytosis CHF exacerbation Consolidation of left lower lobe of lung Medication monitoring encounter Pulmonary nodules Acute on chronic heart failure with reduced ejection fraction and diastolic dysfunction Somnolence Alcohol use disorder, severe, dependence [facility] 01/21 Dental infection Exertional chest pain Homelessness CHF (congestive heart failure) Pacemaker Cardiac arrest Surgical History H/O hand surgery History of coronary artery stent placement History of tonsillectomy History of hernia repair History of right knee joint replacement Social History Smoking/Tobacco Use Status: Current every day Tobacco Type: cigarettes and e- cigarettes Smoking risk assessment performed?: Yes Alcohol Intake: never Details: Former heavy alcohol use. Drug use: Occasionally Substance use type: heroin and amphetamines Housing: other Do you feel safe at home: Yes Do you feel safe in your relationship?: Yes Additional Social history: going through divorce, living in [facility] through homeless program Time Spent with Patient Time Spent with Patient: <45 minutes Time was spent: preparing to see the patient(eg.review tests), ordering medications,tests, procedures, referring, communicating with other health ambulatory care coordinator, indepentently interpreting results, counseling the patient and care coordination
--- NOTE | 2023-05-30 12:41 | PDOC.CMDIS ---
Date of service: 05/30/23 Time of Service: 12:41 LACE Index Scoring Tool Questions: Length of Stay (in days): 2 Was the patient admitted via the E.D.?: Yes Comorbidities: Previous M.I., Congestive Heart Failure and Chronic Pulmonary Disease E.D. Visits: 7 Answers: Total Score: 14 Risk of Readmission: High Risk Care Management Discharge Plan Reason for Hospitalization: pneumonia Discharge Plan: Ray will be discharged back to the [facility] where he is currently staying. He will follow up with his community providers and plan of care and will transport via [facility] coordinated by CM. Patient/Family Education Needs: Review of discharge instructions, limitations, follow up plan, discuss Ask Me Three SDOH Health Related Social Needs: Health related social needs risk of homeless, transpo insecurity Health related social needs: housing instability, housed, with risk of homelessness(Z59.811) and transportation insecurity(Z59.82)
--- NOTE | 2023-05-30 13:41 | PDOC.CMPRO ---
Date of service: 05/30/23 Time of Service: 13:41 Care Management Progress Note Progress Note Text Progress Note Text: S/O:Luis was sitting up in a chair when CM met with him. He appeared to be in good spirits and expected to be discharged home today. Luis had an ambulatory pulse oximetry test done prior to leaving to help determine his home oxygen needs. Unfortunately he required 8L/min of oxygen to maintain his oxygen saturation levels with activity, so he will remain hospitalized at least until tomorrow. Luis shared that he is disappointed but understands the need. A: Luis is a 52 year old man admitted on 05/28/23 with pneumonia P:Anticipate Luis will be discharged back to his hotel, possibly with new home health services. He will follow up with his PCP and plan of care and transport via [facility]. CM will continue to follow and support discharge needs. SDOH(Care Management) Screening Will the Patient Participate in the Screening?: Yes Do you worry about having a steady place to live?: yes Problems where you live: other In the past 12 months, have you had to go without electric, gas, oil or water in your home?: no Have you or anyone in your house had to go without enough food to eat?: no Has lack of transportation kept you from medical appointments or from doing things needed for daily living?: yes Has anyone in your support network made you feel unsafe for any reason?: no Health Related Social Needs Health related social needs: housing instability, housed, with risk of homelessness(Z59.811) and transportation insecurity(Z59.82)
--- NOTE | 2023-05-30 14:03 | W.PM.PROGNOT ---
Date of Service Date of service: 05/30/23 Time of Service: 14:03 Assessment and Plan Assessment and plan (1) Multifocal pneumonia: Assessment and plan: I have cancelled his discharge and will continue high dose Rocephin and continue doxycycline. I have also added Bactrim while I have increased him to high dose prednisone (I gave him one time dose of dexamethasone this afternoon). He is already on a LAMA/LABA/ICS. checking Fungitell, Legionella, mycoplasma and PJP as well as expanded respiratory viral panel, all dependent on getting an adequate specimen (except for urine Strep and urine Legionella antigens). I have asked RT to place on HFNC and changed his DuoNeb to scheduled although he does not sound bronchospastic. I will ask Dr. Hoffman to evaluate him tomorrow. CTA was negative for P.E. but he has bilateral diffuse alveolar densities. I have not added an antifungal yet. I will add Vancomycin pending MRSA screen but if negative then will dc Vanco. Professional time spent interviewing and examining patient, discussion of goals of care with hospital team (care management, nursing and consulting professionals) was 60 minutes. (2) COPD (chronic obstructive pulmonary disease): Status: Chronic Assessment and plan: as above. Qualifiers: COPD type: chronic bronchitis Chronic bronchitis type: simple Qualified Code(s): J41.0 - Simple chronic bronchitis (3) Acute kidney failure: Status: Acute Assessment and plan: now resolved. BUN 22, creatinine 1.2, iv fluids stopped. , CT abdomen and pelvis no hydronephrosis, but small non-obstructive stone 2 mm in right renal superior pole Qualifiers: Acute renal failure type: unspecified Qualified Code(s): N17.9 - Acute kidney failure, unspecified (4) Elevated CK: Status: Acute Assessment and plan: not true rhabdomyolysis but probably d/t his falls. CK 933 > 925 > 415 today. iv fluids stopped. (5) Fall: Status: Acute Assessment and plan: Case is reported as a mechanical slip an fall. He relates second fall to stiffness from the first. I do not appreciate a focal neurologic deficit. Walk with nursing, get PT if concern for sately at home. Qualifiers: Encounter type: initial encounter Qualified Code(s): W19.XXXA - Unspecified fall, initial encounter (6) Blunt head trauma: Status: Acute Assessment and plan: Suture in ED, looks good. CT head/neck negative for intracranial pathology. Qualifiers: Encounter type: initial encounter Qualified Code(s): S09.8XXA - Other specified injuries of head, initial encounter (7) Drug dependence: Status: Chronic Assessment and plan: On suboxone at [facility]. Dose was confirmed and he is now on his oupatient dose. he has issues w/ homelessness which complicates his drug abuse problems. (8) Ischemic cardiomyopathy: Status: Chronic Assessment and plan: no chest pain or palpitations, negative troponin I x two. continue home meds of Ranexa, Imdur, ASA and atorvastatin but holding his diuretics in light of his dehydration; keep off diuretics for now as he appears to be euvolemic and I have stopped his iv fluids. he will eventually need to go back on some maintenance diuretics but his renal function has just recovered. (9) Afib: Status: Chronic Assessment and plan: stable, heart tones sound to be in regular rhythm, chronically on amiodarone. EKG demonstrated sinus rhythm w/ no ischemic changes. Qualifiers: Atrial fibrillation type: paroxysmal Qualified Code(s): I48.0 - Paroxysmal atrial fibrillation (10) DVT prophylaxis: Status: Acute Assessment and plan: chronically on apixaban (11) Discharge planning issues: Status: Acute Assessment and plan: Full CODE patient plans to return to [facility] upon discharge. In light of his falls, which sound mechanical (tripped on threshold in doorway), P.T. now following and treating him Subjective Subjective Interval history since last seen: Patient was going to be discharged home this morning as he was feeling better and wanted to go home. His resting SPO2 was He has home oxygen so we were not concerned about him meeting qualifications for oxygen but when he underwent exercise oximetry to assess his oxgyen needs (at home he has been using oxygen infrequently), he was 90% on 4 lpm and desaturated to 77% after walking across the [place] and back. He required 8 lpm to get his oxygen saturation back up. He is not really coughing any purulent sputum. In fact he does not have much of cough at all. Exam Narrative Exam Narrative: Morbidly obese, pleasant gentleman, who is cooperative despite being disappointed in not being released today. Neck: no overt JVD Lungs: diffusely diminished breath sounds but no rhonchi, rales or wheezes Heart: regular rate and rhythm, no murmur Extremities: obese but no pitting leg/or pedal edema Objective Last Vital Signs Temp 36.0 C L 05/30/23 11:04 Pulse 76 05/30/23 11:04 Resp 16 05/30/23 11:04 BP 107/69 05/30/23 11:04 Pulse Ox 85 L 05/30/23 11:04 Laboratory Results - last 24 hr 05/29/23 05/30/23 14:12 06:25 WBC 18.46 H RBC 4.27 L Hgb 13.0 L Hct 38.2 L MCV 90 MCH 30.4 MCHC 34.0 RDW 14.5 H Plt Count 376 MPV 10.2 Immature Gran % 1.0 Neutrophils % 90.9 Lymphocytes % 4.1 Monocytes % 3.3 Eosinophils % 0.5 Basophils % 0.2 Nucleated RBC % 0.0 Absolute Neutrophils 16.78 H Absolute Lymphocytes 0.76 L Absolute Monocytes 0.61 Absolute Eosinophils 0.09 Absolute Basophils 0.04 Sodium 138 Potassium 4.1 Chloride 101 Carbon Dioxide 30.6 Anion Gap 6.4 BUN 22 H Creatinine 1.2 Est GFR (CKD-EPI 2020) 71.86 Glucose 136 H Calcium 9.9 Creatine Kinase 925 H 415 H Time Spent with Patient Time Spent with Patient: >50 minutes Time was spent: preparing to see the patient(eg.review tests), obtaining and/or reviewing separately otained hiistory, ordering medications,tests, procedures, referring, communicating with other health customer care assistant (leasing property manager, RT, nursing), indepentently interpreting results, counseling the patient and care coordination
[2023-05-30] MEDS: Dexamethasone 10 MG/ML VIAL IVP (14:08)
[2023-05-30 14:38] LABS: Lab Add On Test DONE
[2023-05-30 14:57] LABS: C-Reactive Protein 10.18 mg/dL (0.0-0.3)
[2023-05-30] MEDS: Azithromycin 250 MG TAB PO (15:14)
[2023-05-30] MEDS: VANCOMYCIN/WATER (PEG) 2 GM/400 ML BAG IVPB (15:17)
[2023-05-30 15:21] LABS: Procalcitonin 0.4 ng/mL
[2023-05-30] MEDS: Albuterol/Ipratropium 3 ML UPD VIAL UPD (15:28)
[2023-05-30 19:21] LABS: MRSA PCR Negative (Negative)
[2023-05-30] MEDS: Sulfameth/Trimeth DS TAB 1 TAB PO (19:37)
[2023-05-30] MEDS: Atorvastatin 40 MG TAB 80 MG PO (19:38)
[2023-05-30] MEDS: cefTRIAXone 2 GM/50 ML BAG IV (21:02)
[2023-05-30] MEDS: Melatonin 3 MG TAB 9 MG PO (21:58)
[2023-05-30] MEDS: VANCOMYCIN/WATER (PEG) 750 MG/150 ML BAG 150 MG IVPB (23:55)
[2023-05-31] VITALS (125 sets, daily range): BP systolic 100–121; BP diastolic 60–82; PULSE 50–89; RESP 2–31; TEMP 33–37; O2SAT 85–97
[2023-05-31] MEDS: LORazepam 1 MG TAB PO ×4 (03:31→19:29)
[2023-05-31] MEDS: hydrOXYzine HCL 10 MG TAB PO ×2 (03:31→16:45)
[2023-05-31 06:53] LABS: Abs Immature Grans 0.07 10^3/uL (0.0-0.06); Absolute Lymphocyte Count 0.82 10^3/uL (1.2-3.4); Absolute Monocyte Count 0.55 10^3/uL (0.1-0.8); Basophils % 0.1; HCT 34.7 % (40.0-50.0); HGB 11.6 g/dL (13.5-17.5); Immature Grans % 0.5; Lymphocytes % 5.5; MCHC 33.4 % (32.0-36.0); MCV 90 fL (80-95); MPV 9.8 fL (8.0-11.0); Monocytes % 3.7; Neutrophils % 90.2; Platelet Count 356 10^3/uL (130-400); RBC 3.87 10^6/uL (4.36-5.78); RDW 14.7 % (11.8-14.1); RDW-SD 48.3 fL; WBC 14.86 10^3/uL (4.4-10.8)
[2023-05-31 07:02] LABS: Absolute Basophil Count 0.01 10^3/uL (0.0-0.2)
[2023-05-31 07:23] LABS: Anion Gap 7.1 mmol/L (3-11); BUN 14 mg/dL (7-18); C-Reactive Protein 3.61 mg/dL (0.0-0.3); CO2 28.9 mmol/L (21.0-32.0); CREATININE 1.1 mg/dL (0.70-1.30); Calcium 9.6 mg/dL (8.5-10.1); Chloride 103 mmol/L (98-107); Estimated GFR 79.77 (mL/min/1.73m2); Glucose 154 mg/dL (74-106); Potassium 4.2 mmol/L (3.5-5.1); Sodium 139 mmol/L (136-145)
--- NOTE | 2023-05-31 07:40 | PUCC_ITS ---
General Date of Service Date of service: 05/31/23 Time of Service: 07:40 Reason for Admission to ICU: Hypoxic respiratory failure Assessment and Plan Assessment and plan (1) Community acquired pneumonia: Status: Acute (2) Diastolic heart failure: Status: Acute (3) Obesity hypoventilation syndrome: Status: Chronic (4) Pulmonary hypertension: Status: Acute (5) COPD (chronic obstructive pulmonary disease): Status: Chronic Qualifiers: COPD type: chronic bronchitis Chronic bronchitis type: simple Qualified Code(s): J41.0 - Simple chronic bronchitis (6) Laceration of head: Status: Acute (7) Fall: Status: Acute Qualifiers: Encounter type: initial encounter Qualified Code(s): W19.XXXA - Unspecified fall, initial encounter (8) Leukocytosis: Status: Acute (9) Anemia: Status: Chronic (10) Respiratory failure with hypoxia and hypercapnia: Status: Acute Qualifiers: Chronicity: acute on chronic Qualified Code(s): J96.21 - Acute and chronic respiratory failure with hypoxia; J96.22 - Acute and chronic respiratory failure with hypercapnia; J96.22 - Acute and chronic respiratory failure with hypercapnia (11) Acute on chronic hypoxic respiratory failure: Status: Acute Assessment and plan: This is a 52 yo admitted to the ICU for acute on chronic hypoxic respiratory failure. He has pneumonia that has been ineffectively treated thus far. I have held him home azithromycin as he is on doxycycline. I have stopped the vancomycin and ceftriaxone and placed his on Zosyn to cover for pseudomonas. Ideally, to work up the pneumonia he would have a bronchoscopy, but he currently has too high oxygen needs to do this safely. Given his high flow settings, the floor is an inappropriate care location for him and so we will move him to the ICU. He has had a more extensive pneumonia work up ordered yesterday so will await for these results. I think we should aim for negative fluid balances as well in him given the history of diastolic heart failure and pulmonary hypertension. If his respiratory status were to worsen, I would recommend adding Micafungin for empiric therapy - although he is not immunosuppressed- no chronic steroids- so unlikely he contracted an opportunistic infection. (12) Somnolence: Recommendations Pulmonary: Acute on Chronic Hypoxic respiratory failure - HFNC during day for sats 88-92% - Acapella and IS Chronic hypercapnic respiratory failure with OHS - Trilogy ventilator at night - if he does not have his home unit, we will use our AVAPS tonight COPD - continue Stiolto - will make Duonebs standing QID - prn nebs - prednisone 40mg daily for now Pulmonary Hypertension - 40mg IV Lasix now Cardiac: Diastolic heart failure - strict I/O's - daily weights - Lasix as above Renal: No acute concerns I&O: Intake & Output 05/28/23 05/29/23 05/30/23 05/31/23 23:59 23:59 23:59 23:59 Intake Total 400 / 400 1950 / 1950 2873.333 / 2873.333 160 / 160 Output Total 1100 / 1100 1345 / 1345 675 / 675 Balance 400 / 400 850 / 850 1528.333 / 1528.333 -515 / -515 Weight 127.459 kg 129.5 kg Daily Fluid Goal:: Negative 500-1L GI Nutrition: Nutrition - Ok for diet Date of Last Bowel Movement: 05/26/23 Infectious Disease: CAP - stop azithromycin - stop vancomycin - stop ceftriaxone - continue Bactrim DS bid - continue doxycycline - start Zosyn - fu serologies pending Hematologic: Leukocytosis - due to PNA - continue to monitor Anemia - normocytic, likely iatrogenic Neurologic: Mental health issues - continue home meds Somnolence - continue to keep O2 elevated - VBG Endocrine: No acute concerns Lines: PIV Prophylaxis: Eliquis Protonix - on PPI as outpatient Code Status: Resuscitation Status Full Code Subjective Critical and life-threatening events over the past 24 hours: Pramod is well known to me and has COPD. He was admitted on 05/28/23 for multifocal pneumonia. Yesterday there was a plan to discharge, despite still being hypoxic, however on ambulatory walk testing his O2 dropped significantly and he was placed on HFNC. This morning when he did not have his HFNC in his nose his SpO2 was 68%. With the HFNC on at 50%/60L his O2 sat is 90%. He states he was coughing up green to brown sputum earlier, but is no longer bring anything up. He has not had repeat imaging since admission. He asked if he could go home today, so I did spend time discussing why he needed to be here longer. Outpatient pulm history: Pulmonary History COPD, GOLD III, category E - Stiolto, albuterol, nebs, chronic azithromycin Hypoxic and hypercapnic respiratory failure - 2-3lpm prn daytime and HS- Trilogy josé tilator Pulmonary Hypertension - PAP 42mmHg Immunizations and Labs: Last Influenza: 03/03/22 Last COVID: [] Last PPSV23: [] Last PCV13: [] AAT: []? Exam Narrative Exam Narrative: Gen: NAD, normal respiratory effort, obese HENT: PERRL, moist mucosa Chest: No respiratory distress, normal appearance of chest, clear to auscultation bilaterally, no crackles or wheezes, normal inspiratory effort Heart: regular rate and rhythym, no murmurs, rubs or gallops Abdomen: Non-distended, soft, non tender Extremities: No clubbing, cyanosis Neuro: AAOx3 , non focal Psych: cooperative, appropriate mental affect Most Recent VS/Results Last Vital Signs Temp 36.5 C 05/31/23 07:24 Pulse 81 05/31/23 07:24 Resp 17 05/31/23 07:24 BP 117/76 05/31/23 07:24 Pulse Ox 92 05/31/23 07:24 Laboratory Results - last 24 hr 05/30/23 05/30/23 05/31/23 06:25 18:00 06:10 WBC 18.46 H 14.86 H RBC 4.27 L 3.87 L Hgb 13.0 L 11.6 L Hct 38.2 L 34.7 L MCV 90 90 MCH 30.4 30.0 MCHC 34.0 33.4 RDW 14.5 H 14.7 H Plt Count 376 356 MPV 10.2 9.8 Immature Gran % 1.0 0.5 Neutrophils % 90.9 90.2 Lymphocytes % 4.1 5.5 Monocytes % 3.3 3.7 Eosinophils % 0.5 0.0 Basophils % 0.2 0.1 Nucleated RBC % 0.0 0.0 Absolute Neutrophils 16.78 H 13.40 H Absolute Lymphocytes 0.76 L 0.82 L Absolute Monocytes 0.61 0.55 Absolute Eosinophils 0.09 0.00 Absolute Basophils 0.04 0.01 Sodium 138 139 Potassium 4.1 4.2 Chloride 101 103 Carbon Dioxide 30.6 28.9 Anion Gap 6.4 7.1 BUN 22 H 14 Creatinine 1.2 1.1 Est GFR (CKD-EPI 2020) 71.86 79.77 Glucose 136 H 154 H Calcium 9.9 9.6 Creatine Kinase 415 H C-Reactive Protein 10.18 H 3.61 H Procalcitonin 0.4 MRSA (TEM-PCR) Negative Add-On Test Request DONE Review of Systems All systems reviewed & are unremarkable except as noted in HPI and below Time spent with patient Time spent in Critical Care: 60 Time spent in Critical care included: Coordination of care, Chart review, Documenting critically ill care, Time at immediate bedside and Discussing critically ill care with other medical staff
--- NOTE | 2023-05-31 07:52 | DI.RAD_ITS ---
Exam(s) XR PORTABLE CHEST AP EXAM: XR PORTABLE CHEST AP CLINICAL HISTORY: worsening hypoxia TECHNIQUE: 2D digital imaging was performed of the chest. One image was obtained. An AP view was ob tained. COMPARISON: CR XR PORTABLE CHEST AP from 02/26/[address] CHEST PE ABD PELVIS W from 05/28/2023 FINDINGS: MEDIASTINUM: Normal. HEART: Upper limits of normal in size. Cardiac pacing wires are stable in position. PULMONARY VASCULATURE: Normal. LUNGS: There again seen bilateral pulmonary opacities which appear slightly worsened particularly in the left lung compared to the examination from 05/28/2023. PLEURAL SPACE: No pleural effusion or pneumothorax. BONE:Within normal limits for the patient's age. OTHER FINDINGS:Normal. IMPRESSION: Slight progression of the pulmonary opacities when compared to 05/28/2023. This may represent worseni ng pulmonary edema or pneumonia. Please correlate clinically. DATA REPOSITORY: RADIATION DOSE DELIVERED:
[2023-05-31] MEDS: Normal Saline Flush 10 ML SYR IVP ×4 (08:01→19:33)
[2023-05-31] MEDS: Apixaban 5 MG TAB PO ×2 (08:02→19:30)
[2023-05-31] MEDS: Escitalopram 10 MG TAB PO (08:02)
[2023-05-31] MEDS: Amiodarone 200 MG TAB 100 MG PO (08:02)
[2023-05-31] MEDS: Sulfameth/Trimeth DS TAB 1 TAB PO ×2 (08:02→19:47)
[2023-05-31] MEDS: Pantoprazole 40 MG TABCR PO (08:02)
[2023-05-31] MEDS: predniSONE 20 MG TAB 40 MG PO (08:03)
[2023-05-31] MEDS: Multivitamin w/Minerals TAB 1 TAB PO (08:03)
[2023-05-31] MEDS: Isosorbide Mononitrate 30 MG TABCR PO (08:03)
[2023-05-31] MEDS: busPIRone 15 MG TAB PO ×3 (08:03→19:29)
[2023-05-31] MEDS: Aspirin E.C. 81 MG TABEC PO (08:03)
[2023-05-31] MEDS: Ranolazine 500 MG TABCR PO ×2 (08:03→19:29)
[2023-05-31] MEDS: Folic Acid 1 MG TAB PO (08:03)
--- NOTE | 2023-05-31 08:39 | PDOC.CMPRO ---
Date of service: 05/31/23 Time of Service: 08:39 Care Management Progress Note Progress Note Text Progress Note Text: S/O:Luis was sitting up in bed in the ICU when CM met with him. He was transferred to the unit this morning when his oxygen needs increased. A repeat chest Xray showed worsening pulmonary infiltrates and Luis is now requiring high flow nasal oxygen 50%/60L. Luis was very sleepy when CM tried to converse with him. He kept nodding off and admitted that he was tired. Luis asked CM several time if he could go home. CM explained that his current oxygen needs are so high that he would not be able to receive adequate treatment at home. Luis was seen by both Dr. Hoffman and the hospitalist this morning and changes were made to his antibiotic regimen. Efforts are underway to get the results of the tests sent out for some of the less common pulmonary pathogens such as mycoplasma, legionella and PJP. A: Luis is a 52 year old man admitted on 05/28/23 with pneumonia P:Anticipate Luis will be discharged back to his hotel, possibly with new home health services when medically stable. He will follow up with his PCP, Pulmonology and plan of care and transport via [facility]. CM will continue to follow and support discharge needs. SDOH(Care Management) Screening Will the Patient Participate in the Screening?: Yes Do you worry about having a steady place to live?: yes Problems where you live: other In the past 12 months, have you had to go without electric, gas, oil or water in your home?: no Have you or anyone in your house had to go without enough food to eat?: no Has lack of transportation kept you from medical appointments or from doing things needed for daily living?: yes Has anyone in your support network made you feel unsafe for any reason?: no Health Related Social Needs Health related social needs: housing instability, housed, with risk of homelessness(Z59.811) and transportation insecurity(Z59.82)
[2023-05-31] MEDS: Tiotropium/Olodaterol 10 PUFF INHALER 2 PUFF IH (08:43)
[2023-05-31 09:36] LABS: BE (Venous) 5 mmol/L (-2-3); HCO3 (Venous) 29 mmol/L (23-28); O2 Sat (Venous) 99 %; TCO2 (Venous) 27 mmol/L (24-29); pCO2 (Venous) 44 mmHg (41-51); pH (Venous) 7.43 (7.31-7.41); pO2 (Venous) 100 mmHg
--- NOTE | 2023-05-31 09:54 | PGE_ITS ---
Date of Service Date of service: 05/31/23 Time of Service: 09:54 Assessment and Plan Assessment and plan (1) Multifocal pneumonia: Assessment and plan: -patient had been on rocephin, doxy and azithro -apprecaite Dr. Vidales and res: -antibiotics changed to IV doxy and zosyn (rocephin and azithro DCed) -continue prednisone and scheduled/PRN inhalers and nebulizers -f/u fungitell, legionella, mycoplasma, PJP, resp viral panel -if respiratory status worsens would emperically treat with Micafungin (2) COPD (chronic obstructive pulmonary disease): Status: Chronic Assessment and plan: -contributing factor in patients acute on chronic hypoxic respiratory failure -continue treatment as above Qualifiers: COPD type: chronic bronchitis Chronic bronchitis type: simple Qualified Code(s): J41.0 - Simple chronic bronchitis (3) Acute on chronic hypoxic respiratory failure: Status: Acute Assessment and plan: -likely due to multifocal PNA and COPD exaerbation at noted above -currently on HFNC 50%/60L, wean as tolerated to maintain O2 sat 88-92% (4) Acute kidney failure: Status: Acute Assessment and plan: -now resolved. -BUN 22, creatinine 1.2, iv fluids stopped -CT abdomen and pelvis no hydronephrosis, but small non-obstructive stone 2 mm in right renal superior pole Qualifiers: Acute renal failure type: unspecified Qualified Code(s): N17.9 - Acute kidney failure, unspecified (5) Elevated CK: Status: Acute Assessment and plan: -not true rhabdomyolysis but probably d/t his falls. CK 933 > 925 > 415 today. iv fluids stopped. (6) Fall: Status: Acute Assessment and plan: -Case is reported as a mechanical slip an fall. -He relates second fall to stiffness from the first. -I do not appreciate a focal neurologic deficit. -Walk with nursing, get PT if concern for sately at home. Qualifiers: Encounter type: initial encounter Qualified Code(s): W19.XXXA - Unspecified fall, initial encounter (7) Blunt head trauma: Status: Acute Assessment and plan: -Suture in ED, looks good. -CT head/neck negative for intracranial pathology. Qualifiers: Encounter type: initial encounter Qualified Code(s): S09.8XXA - Other specified injuries of head, initial encounter (8) Drug dependence: Status: Chronic Assessment and plan: -On suboxone at [facility]. -Dose was confirmed and he is now on his oupatient dose. -he has issues w/ homelessness which complicates his drug abuse problems. (9) Ischemic cardiomyopathy: Status: Chronic Assessment and plan: -no chest pain or palpitations, negative troponin I x two. -continue home meds of Ranexa, Imdur, ASA and atorvastatin but holding his diuretics in light of his dehydration -keep off diuretics for now as he appears to be euvolemic and I have stopped his iv fluids. -he will eventually need to go back on some maintenance diuretics but his renal function has just recovered. (10) Afib: Status: Chronic Assessment and plan: -stable, heart tones sound to be in regular rhythm, chronically on amiodarone. EKG demonstrated sinus rhythm w/ no ischemic changes. Qualifiers: Atrial fibrillation type: paroxysmal Qualified Code(s): I48.0 - Paroxysmal atrial fibrillation (11) DVT prophylaxis: Status: Acute Assessment and plan: -chronically on apixaban Subjective Subjective Interval history since last seen: Patient states that he is feeling a little tired this morning, but otherwise he states he has no other complaints or concerns at this time. Exam Narrative Exam Narrative: Obese gentleman, fatigued appearing, laying in bed mild respiratory distress, somnolent but very easily awake able to verbal stimuli and able to hold conversation, oriented x 3, high flow nasal cannula in place at 50% / 60 L, lungs diffusely diminished but without rhonchi rales or wheezing, heart regular rate rhythm, abdomen obese, soft, nontender, nondistended Objective Last Vital Signs Temp 97.2 F L 05/31/23 09:06 Pulse 65 05/31/23 09:06 Resp 24 05/31/23 09:06 BP 104/75 05/31/23 09:06 Pulse Ox 92 05/31/23 09:06 Laboratory Results - last 24 hr 05/30/23 05/30/23 05/31/23 06:25 18:00 06:10 WBC 14.86 H RBC 3.87 L Hgb 11.6 L Hct 34.7 L MCV 90 MCH 30.0 MCHC 33.4 RDW 14.7 H Plt Count 356 MPV 9.8 Immature Gran % 0.5 Neutrophils % 90.2 Lymphocytes % 5.5 Monocytes % 3.7 Eosinophils % 0.0 Basophils % 0.1 Nucleated RBC % 0.0 Absolute Neutrophils 13.40 H Absolute Lymphocytes 0.82 L Absolute Monocytes 0.55 Absolute Eosinophils 0.00 Absolute Basophils 0.01 VBG pH VBG pCO2 VBG pO2 VBG HCO3 VBG Total CO2 VBG O2 Saturation VBG Base Excess Sodium 139 Potassium 4.2 Chloride 103 Carbon Dioxide 28.9 Anion Gap 7.1 BUN 14 Creatinine 1.1 Est GFR (CKD-EPI 2020) 79.77 Glucose 154 H Calcium 9.6 C-Reactive Protein 10.18 H 3.61 H Procalcitonin 0.4 MRSA (TEM-PCR) Negative Add-On Test Request DONE 05/31/23 09:30 WBC RBC Hgb Hct MCV MCH MCHC RDW Plt Count MPV Immature Gran % Neutrophils % Lymphocytes % Monocytes % Eosinophils % Basophils % Nucleated RBC % Absolute Neutrophils Absolute Lymphocytes Absolute Monocytes Absolute Eosinophils Absolute Basophils VBG pH 7.43 H VBG pCO2 44 VBG pO2 100 VBG HCO3 29 H VBG Total CO2 27 VBG O2 Saturation 99 VBG Base Excess 5 H Sodium Potassium Chloride Carbon Dioxide Anion Gap BUN Creatinine Est GFR (CKD-EPI 2020) Glucose Calcium C-Reactive Protein Procalcitonin MRSA (TEM-PCR) Add-On Test Request Time Spent with Patient Time Spent with Patient: >50 minutes (60 minutes spent with critically ill patient requiring significant supplemental oxygen on high flow nasal cannula) Time was spent: preparing to see the patient(eg.review tests), obtaining and/or reviewing separately otained hiistory, ordering medications,tests, procedures, referring, communicating with other health caretaker resort, indepentently interpreting results, counseling the patient and care coordination
[2023-05-31] MEDS: Furosemide 40 MG/4 ML VIAL IVP ×3 (10:05→21:44)
[2023-05-31] MEDS: DOXYCYCLINE 100 MG in Normal Saline 100 ML IVPB ×2 (10:30→21:43)
[2023-05-31] MEDS: Buprenorphine/Naloxone 8 mg/2 mg FILM 1 EACH SL (10:38)
[2023-05-31] MEDS: Buprenorphine/Naloxone 2 mg/0.5 mg FILM 1 EACH SL (10:38)
[2023-05-31] MEDS: PIPERACILLIN/TAZO 3.375 GM in Normal Saline 50 ML IVPB ×3 (10:41→23:51)
--- NOTE | 2023-05-31 12:16 | PHA.REVIEW2 ---
Pharmacy Admission Review Admission Clinical Review Admission Pharmacy Review: (Updated 05/31/23 @ 08:56 by May Hoffman MD) Acute on chronic hypoxic respiratory failure (Acute) Leukocytosis (Acute) Community acquired pneumonia (Acute) Discharge planning issues (Acute) DVT prophylaxis (Acute) Elevated CK (Acute) Elevated AST (SGOT) (Acute) Acute kidney failure (Acute) Fall (Acute) Laceration of head (Acute) Blunt head trauma (Acute) Blunt trauma of multiple sites of trunk (Acute) Pulmonary hypertension (Acute) Respiratory failure with hypoxia and hypercapnia (Acute) Diastolic heart failure (Acute) Tobacco use disorder (Acute) hydromorphone [From Dilaudid] Allergy (Verified 05/28/23 20:26) Resuscitation Status Full Code Height 5 ft 9 in Weight 131.3 kg Pharmacy Admission Review Renal Dosing Renal Dosing: BUN 14 mg/dL (7-18) 05/31/23 06:10 Creatinine 1.1 mg/dL (0.70-1.30) 05/31/23 06:10 Medications needing adjustments: Reviewed (CrCl 103 mL/min) Anticoagulation Anticoagulation: Hgb 11.6 g/dL (13.5-17.5) L 05/31/23 06:10 Hct 34.7 % (40.0-50.0) L 05/31/23 06:10 Plt Count 356 10^3/uL (130-400) 05/31/23 06:10 INR 1.4 (0.9-1.1) H 05/28/23 17:45 Creatinine 1.1 mg/dL (0.70-1.30) 05/31/23 06:10 DVT Prophylaxis: Reviewed Medications: Apixaban (5mg BID) Relevant Labs Relevant Labs: Sodium 139 mmol/L (136-145) 05/31/23 06:10 Potassium 4.2 mmol/L (3.5-5.1) 05/31/23 06:10 Chloride 103 mmol/L (98-107) 05/31/23 06:10 Magnesium 1.9 mg/dL (1.8-2.4) 05/28/23 17:45 C-Reactive Protein 3.61 mg/dL (0.0-0.3) H 05/31/23 06:10 Electrolytes, C-Reactive P, ESR: Reviewed (Glucose 154, BUN decreased to 14 from 22 and SCr decreased to 1.1 from 1.2) Cardiac Review Cardiac Review: Troponin I < 50 ng/L (< or =60) 05/28/23 21:02 NT-Pro-B Natriuret Pep 1124 pg/mL (<300) H 05/28/23 20:05 BP, HR, EF%: Reviewed (BP WNL, HR 59. Ox 95 on high flow system 45+) QTc Review QTc: Reviewed (481 from 05/28/23) IV to PO Switch IV Medications: Reviewed Home Meds Home Med List reviewed: Intervened Relevent Home Meds Not ordered & why?: On home med list but not ordered: spironolactone (on hold per progress note) and torsemide (on hold per progress note) Recently filled but not on home med list: quetiapine and losartan. Reached out to provider who stated BP is borderline and patient has been lethargic so he does not want these meds continued at this time. Current Meds Current Medication Order Review: Reviewed Pharmacy Antibiotic Review Relevant Labs: Relevant Labs 05/31/23 05/30/23 06:10 06:25 C-Reactive Protein 3.61 H 10.18 H Procalcitonin 0.4 Pharmacy Antibiotic Activity: Abx regimen adjustment and C/S review Comments: Vancomcyin, azithromycin and ceftriaxone were discontinued this morning. Current regimen is doxycycline 100mg q12h, Zosyn 3.375mg q8h and PO Bactrim. Sputum culture positive for Bernice albicans. WBC decreased to 14.86 and C reactive protein decreased to 3.61 from 10.18.
[2023-05-31] MEDS: Gabapentin 100 MG CAP 400 MG PO ×3 (12:40→19:29)
[2023-05-31] MEDS: Albuterol/Ipratropium 3 ML UPD VIAL UPD ×2 (15:15→19:25)
[2023-05-31] MEDS: Melatonin 3 MG TAB 9 MG PO (19:28)
[2023-05-31] MEDS: Atorvastatin 40 MG TAB 80 MG PO (19:29)
[2023-05-31 21:43] LABS: Adenovirus DNA Result Negative (Negative); Metapneumovirus RNA Result Negative (Negative); Parainfluenza Type1 RNA Result Negative (Negative); Parainfluenza Type2 RNA Result Negative (Negative); Parainfluenza Type3 RNA Result Negative (Negative); Parainfluenza Type4 RNA Result Negative (Negative); Rhinovirus RNA Result Negative (Negative)
[2023-05-31 23:09] LABS: Legionella Ag Detection Urine Negative (Negative)
[2023-06-01] VITALS (118 sets, daily range): BP systolic 96–135; BP diastolic 47–87; PULSE 50–96; RESP 2–30; TEMP 36.5–36.8; O2SAT 4–99
[2023-06-01 06:53] LABS: HCT 33.5 % (40.0-50.0); HGB 11.1 g/dL (13.5-17.5); MCH 29.9 pg (27.0-33.0); MCHC 33.1 % (32.0-36.0); MCV 90 fL (80-95); MPV 9.7 fL (8.0-11.0); Platelet Count 342 10^3/uL (130-400); RBC 3.71 10^6/uL (4.36-5.78); RDW 14.8 % (11.8-14.1); RDW-SD 49.5 fL; WBC 12.61 10^3/uL (4.4-10.8)
[2023-06-01 06:58] LABS: Anion Gap 4.6 mmol/L (3-11); BUN 19 mg/dL (7-18); CO2 33.4 mmol/L (21.0-32.0); CREATININE 1.1 mg/dL (0.70-1.30); Calcium 9.3 mg/dL (8.5-10.1); Chloride 103 mmol/L (98-107); Estimated GFR 79.77 (mL/min/1.73m2); Glucose 122 mg/dL (74-106); Potassium 3.8 mmol/L (3.5-5.1); Sodium 141 mmol/L (136-145)
--- NOTE | 2023-06-01 07:29 | W.PULMCC ---
General Date of Service Date of service: 06/01/23 Time of Service: 07:30 Reason for Admission to ICU: Hypoxic respiratory failure Assessment and Plan Assessment and plan (1) Community acquired pneumonia: Status: Acute (2) Diastolic heart failure: Status: Acute (3) Obesity hypoventilation syndrome: Status: Chronic (4) Pulmonary hypertension: Status: Acute (5) COPD (chronic obstructive pulmonary disease): Status: Chronic Qualifiers: COPD type: chronic bronchitis Chronic bronchitis type: simple Qualified Code(s): J41.0 - Simple chronic bronchitis (6) Somnolence: (7) Laceration of head: Status: Acute (8) Fall: Status: Acute Qualifiers: Encounter type: initial encounter Qualified Code(s): W19.XXXA - Unspecified fall, initial encounter (9) Leukocytosis: Status: Acute (10) Anemia: Status: Chronic (11) Respiratory failure with hypoxia and hypercapnia: Status: Acute Qualifiers: Chronicity: acute on chronic Qualified Code(s): J96.21 - Acute and chronic respiratory failure with hypoxia; J96.22 - Acute and chronic respiratory failure with hypercapnia; J96.22 - Acute and chronic respiratory failure with hypercapnia (12) Acute on chronic hypoxic respiratory failure: Status: Acute Assessment and plan: This is a 52 yo admitted to the ICU for acute on chronic hypoxic respiratory failure. He has pneumonia that has been ineffectively treated thus far. He is on broad spectrum antibiotics and I began aggressive diuresis yesterday, which has been effective as he is - 3L today. He was able to come off HFNC this morning and is currently on 4LPM. His O2 concentrator at home only goes to 5LPM and he will need an ambulatory pulse ox prior to safely leaving. If he requires more than 5LPM, he may need a larger concentrator or to wait a bit longer for his O2 needs to improve. I will give him another dose of Lasix this morning has his labs are stable and he is very anxious to leave. Recommendations Pulmonary: Acute on Chronic Hypoxic respiratory failure - supplemental O2 sats 88-92% - ambulatory pulse ox prior to D/C - Acapella and IS Chronic hypercapnic respiratory failure with OHS - Trilogy ventilator at night - if he does not have his home unit, we will use our AVAPS while admitted COPD - continue Stiolto - will make Duonebs standing QID - prn nebs - prednisone 40mg daily with taper on D/C: 40mg for 7 days, 30mg for 3 days, 20mg for 3 days, 10mg for 3 days, 20mg for 3 days, 10mg for 3 days, 5mg for 3 days Pulmonary Hypertension - 40mg IV Lasix now Cardiac: Diastolic heart failure - strict I/O's - daily weights - Lasix as above Renal: No acute concerns I&O: Intake & Output 05/29/23 05/30/23 05/31/23 06/01/23 23:59 23:59 23:59 23:59 Intake Total 1950 / 1950 2873.333 / 2873.333 1080 / 1080 Output Total 1100 / 1100 1345 / 1345 4925 / 4925 Balance 850 / 850 1528.333 / 1528.333 -3845 / -3845 Weight 131.3 kg 131.5 kg Daily Fluid Goal:: Negative GI Nutrition: Nutrition - Ok for diet Date of Last Bowel Movement: 05/26/23 Infectious Disease: CAP - stop Bactrim DS bid - continue doxycycline - start Zosyn - fu serologies pending - on discharge can be sent home with 7 days of Augmentin Hematologic: Leukocytosis - due to PNA - improving Anemia - normocytic, likely iatrogenic Neurologic: Mental health issues - continue home meds Somnolence - improved Endocrine: No acute concerns Lines: PIV Prophylaxis: Eliquis Protonix - on PPI as outpatient Code Status: Resuscitation Status Full Code Subjective Critical and life-threatening events over the past 24 hours: Today he is doing well. I was able to take him off HFNC and place him on NC at 4LPM this morning with stable sats. He is very anxious about going home and asking if he can leave today. Exam Narrative Exam Narrative: Gen: NAD, normal respiratory effort, obese HENT: PERRL, moist mucosa Chest: No respiratory distress, normal appearance of chest, clear to auscultation bilaterally, no crackles or wheezes, normal inspiratory effort Heart: regular rate and rhythym, no murmurs, rubs or gallops Abdomen: Non-distended, soft, non tender Extremities: No clubbing, cyanosis Neuro: AAOx3 , non focal Psych: cooperative, appropriate mental affect Most Recent VS/Results Last Vital Signs Temp 36.8 C 06/01/23 04:00 Pulse 55 L 06/01/23 05:16 Resp 20 06/01/23 05:36 BP 99/58 L 06/01/23 05:16 Pulse Ox 94 06/01/23 05:36 Laboratory Results - last 24 hr 05/31/23 06/01/23 09:30 05:52 WBC 12.61 H RBC 3.71 L Hgb 11.1 L Hct 33.5 L MCV 90 MCH 29.9 MCHC 33.1 RDW 14.8 H Plt Count 342 MPV 9.7 VBG pH 7.43 H VBG pCO2 44 VBG pO2 100 VBG HCO3 29 H VBG Total CO2 27 VBG O2 Saturation 99 VBG Base Excess 5 H Sodium 141 Potassium 3.8 Chloride 103 Carbon Dioxide 33.4 H Anion Gap 4.6 BUN 19 H Creatinine 1.1 Est GFR (CKD-EPI 2020) 79.77 Glucose 122 H Calcium 9.3 Review of Systems All systems reviewed & are unremarkable except as noted in HPI and below Time spent with patient Time spent in Critical Care: 45 Time spent in Critical care included: Chart review, Documenting critically ill care, Time at immediate bedside and Discussing critically ill care with other medical staff
[2023-06-01] MEDS: busPIRone 15 MG TAB PO ×3 (07:43→20:12)
[2023-06-01] MEDS: Ranolazine 500 MG TABCR PO ×2 (07:44→20:12)
[2023-06-01] MEDS: Amiodarone 200 MG TAB 100 MG PO (07:44)
[2023-06-01] MEDS: Isosorbide Mononitrate 30 MG TABCR PO (07:44)
[2023-06-01] MEDS: Multivitamin w/Minerals TAB 1 TAB PO (07:44)
[2023-06-01] MEDS: Folic Acid 1 MG TAB PO (07:44)
[2023-06-01] MEDS: predniSONE 20 MG TAB 40 MG PO (07:44)
[2023-06-01] MEDS: Escitalopram 10 MG TAB PO (07:44)
[2023-06-01] MEDS: Sulfameth/Trimeth DS TAB 1 TAB PO (07:44)
[2023-06-01] MEDS: Buprenorphine/Naloxone 8 mg/2 mg FILM 1 EACH SL (07:45)
[2023-06-01] MEDS: Buprenorphine/Naloxone 2 mg/0.5 mg FILM 1 EACH SL (07:45)
[2023-06-01] MEDS: Apixaban 5 MG TAB PO ×2 (07:45→20:12)
[2023-06-01] MEDS: Pantoprazole 40 MG TABCR PO (07:45)
[2023-06-01] MEDS: Aspirin E.C. 81 MG TABEC PO (07:45)
[2023-06-01] MEDS: Albuterol/Ipratropium 3 ML UPD VIAL UPD ×4 (08:18→19:43)
[2023-06-01] MEDS: Tiotropium/Olodaterol 10 PUFF INHALER 2 PUFF IH (08:22)
--- NOTE | 2023-06-01 08:35 | PDOC.CMPRO ---
Date of service: 06/01/23 Time of Service: 08:35 Care Management Progress Note Progress Note Text Progress Note Text: S/O: Luis remains in the ICU. A discharge was planned for today, but cancelled due to respiratory status. Per report, [facility] is not permitting Luis to return. Number for housing support were provided. CM following. Pulmonology RN Kirsten reports: per [facility] [place] patient has these supplies at home: [employer] 5L max Received 7 tanks and 1 Refill on 05/14/2023 A: Luis is a 52 year old man admitted on 05/28/23 with pneumonia P: Luis is now unsheltered and will need to seek housing through [facility] or local nursing home, he will transport via [facility]. CM will continue to follow and support discharge needs. SDOH(Care Management) Screening Will the Patient Participate in the Screening?: Yes Do you worry about having a steady place to live?: yes Problems where you live: other In the past 12 months, have you had to go without electric, gas, oil or water in your home?: no Have you or anyone in your house had to go without enough food to eat?: no Has lack of transportation kept you from medical appointments or from doing things needed for daily living?: yes Has anyone in your support network made you feel unsafe for any reason?: no Health Related Social Needs Health related social needs: housing instability, housed, with risk of homelessness(Z59.811) and transportation insecurity(Z59.82)
[2023-06-01] MEDS: Furosemide 40 MG/4 ML VIAL IVP ×3 (08:36→21:05)
[2023-06-01] MEDS: PIPERACILLIN/TAZO 3.375 GM in Normal Saline 50 ML IVPB ×2 (08:37→16:40)
[2023-06-01] MEDS: Normal Saline Flush 10 ML SYR IVP ×6 (08:37→20:13)
[2023-06-01] MEDS: Gabapentin 400 MG CAP PO ×4 (08:46→20:12)
--- NOTE | 2023-06-01 10:44 | DSE_ITS ---
Date of service: 06/01/23 Time of Service: 11:24 DS: Diagnosis Discharge Diagnosis (1) Community acquired pneumonia: Status: Acute Asessment and Plan: -patient had been on rocephin, doxy and azithro -apprecaite Dr. Vidales and res: -antibiotics changed to IV doxy and zosyn (rocephin and azithro DCed) -will DC with prednisone taper and antibiotics Prolonged discussion had with patient regarding his discharge for which he stated he is not willing to stay another night despite having borderline hypoxia with movement down to the mid 80's. He understands the risks of going home in this condition which include re-hospitalization or even . The decision to discharge this patient as opposed to allowing his to leave AMA comes down to being able to provide the appropriate outpatient services that can be provided as a full discharge, which I believe to be highly beneficial to the patient. (2) Diastolic heart failure: Status: Acute Asessment and Plan: -contributing factor in patients acute on chronic hypoxic respiratory failure -had significant diuresis during hosptialization resulting in improvement in respiratory status (3) Obesity hypoventilation syndrome: Status: Chronic Asessment and Plan: -continue home trilogy (4) Pulmonary hypertension: Status: Acute (5) COPD (chronic obstructive pulmonary disease): Status: Chronic (6) Somnolence: (7) Laceration of head: Status: Acute (8) Fall: Status: Acute Asessment and Plan: -Case is reported as a mechanical slip an fall. -He relates second fall to stiffness from the first. -I do not appreciate a focal neurologic deficit. (9) Leukocytosis: Status: Acute (10) Anemia: Status: Chronic (11) Respiratory failure with hypoxia and hypercapnia: Status: Acute (12) Acute on chronic hypoxic respiratory failure: Status: Acute Discharge Plan Disposition Patient Disposition: Home Condition: Improving Discharge Details Reason For Visit: Pneumonia Admit Date/Time: 05/28/23 19:43 Admit Provider: [employer] Attending Provider: Farhat Valdez Primary Care Provider: Gerri Silverman Hospital Course Hospital Course: 52-year-old male with a history of multiple medical problems including coronary artery disease with previous myocardial infarction and in-hospital cardiac arrest at [facility], status post AICD placement, history of diastolic heart failure, atrial fibrillation controlled on amiodarone and anticoagulation, hypertension, hyperlipidemia, previous substance abuse disorder came in to the emergency department with a fall striking his head and his lower back. He did sustain a scalp laceration on the left frontal area a bout 10 cm in size that was controlled with primary closure with georgina. Imaging included chest abdomen pelvic CT as well as the head and cervical CT. Head and cervical CT was limited due to motion artifact but there is no acute intracranial process large laceration was noted over the left frontal and parietal bones but no fracture was seen and no subluxation of the cervical spine. Chest abdomen pelvic CT demonstrated multifocal groundglass opacities bilaterally consistent with pneumonia but no evidence of PE and no evidence of thoracic aortic aneurysm or dissection. He has some fluid-filled loops in the small bowel area consistent with an enteritis. He also was found to have a right nephrolithiasis but no obstructive uropathy. Patient gave additional history that antecedent to his fall he did have a few days of diarrhea. Further evaluation included laboratory studies that showed he had prerenal azotemia with a BUN of 27 creatinine 2.8. He was given IV fluids and hydrated over the next couple of days bringing his BUN and creatinine down to 22 and 1.2. Blood cultures were obtained came back no growth sputum culture was obtained Gram stain showed few white cells rare epithelial cells rare mixed gram-positive bentley none predominant and rare yeast. He was empirically treated for his pneumonia with Rocephin and doxycycline. He did acutely worsen on 05/30 requiring HFNC and change in antibiotics to zosyn and doxy, but was weaned to RA on the morning of 06/01. He was able to ambulate without symptoms, but O2 did decrease to high 80's but quickly improved with rest. Patient still required oxygen at the time of discharge however he has home oxygen which she only uses intermittently. Patient will be discharged home on a 7-day course of Augmentin 500 mg p.o. 3 times daily along with prednisone 40 mg daily for 5 days. He was treated in the hospital with IV corticosteroids and then switched to prednisone. He will be maintained on his azithromycin which she is taking through a pulmonary drug study through Dr. Sharif's office. Follow-up with his primary care provider as recommended within 1 week follow-up chest x-ray is recommended in 2 weeks. Also recommend his primary care provider recheck his electrolytes and BUN and creatinine in a week. Home Meds and New Rx's Prescriptions: New amoxicillin-pot clavulanate [Augmentin] 500-125 mg tablet 1 tab PO TID 7 Days Qty: 21 0RF prednisone 20 mg tablet 40 mg PO DAILY 5 Days Qty: 10 0RF Continued nitroglycerin 0.4 mg tablet, sublingual 0.4 mg sublingual Q5-15M PRN (Reason: chest pain) Qty: 90 3RF Rx Instructions: do not exceed 3 doses per episode folic acid 1 mg tablet 1,000 mcg PO DAILY Patient Comments: 10/07/22 per PCP prescribed as 1 mg daily RH azithromycin 250 mg tablet 250 mg PO DAILY Qty: 30 12RF gabapentin 100 mg capsule 400 mg PO QID buspirone 15 mg tablet 15 mg PO TID acetaminophen 500 mg capsule 1,000 mg PO Q6H PRN spironolactone 25 mg tablet 25 mg PO DAILY Super Multiple Tablet 1 tab PO DAILY melatonin 10 mg capsule 10 mg PO HS PRN Stiolto Respimat 2.5-2.5 mcg/actuation mist 2 puff inhalation DAILY Qty: 4 12RF aspirin 81 mg tablet,delayed release (DR/EC) 81 mg PO DAILY Qty: 90 3RF amiodarone 100 mg tablet 100 mg PO DAILY Qty: 90 3RF Eliquis 5 mg tablet 5 mg PO BID Qty: 60 12RF albuterol sulfate 90 mcg/actuation aerosol powdr breath activated 2 inh inhalation Q4H PRNQty: 1 0RF ipratropium-albuterol 0.5 mg-3 mg(2.5 mg base)/3 mL Solution For Nebulization 3 ml UPD Q6H PRN PRN (Reason: wheezing) Qty: 180 0RF torsemide 20 mg tablet 60 mg PO DAILY Qty: 90 3RF Rx Instructions: 40 mg in am, 20 mg around 2p buprenorphine-naloxone 8-2 mg Film 1 film BUCCAL DAILY Rx Instructions: in addition to 2/0.5 mg for total = 10/2.5 polyethylene glycol 3350 17 gram Powder In Packet 17 g PO PRN PRN hydroxyzine HCl 10 mg Tablet 10 mg PO TID Patient Comments: unsure total dose escitalopram oxalate 10 mg Tablet 10 mg PO DAILY buprenorphine-naloxone [Suboxone] 2-0.5 mg film 1 film sublingual DAILY Rx Instructions: in addition to 8/ film for total 10/2.5 (confirmed w/[facility] 05/29/23) isosorbide mononitrate 30 mg Tablet Extended Release 24 Hr 30 mg PO DAILY ranolazine 500 mg Tablet Extended Release 12 Hr 500 mg PO BID atorvastatin 80 mg tablet 80 mg PO DAILY Qty: 30 0RF pantoprazole [Protonix] 40 mg tablet,delayed release (DR/EC) 40 mg PO DAILY Qty: 30 0RF Patient Comments: probably but unsure hydroxyzine HCl 50 mg tablet 50 mg PO TID PRN (Reason: anxiety) Qty: 30 0RF Patient Comments: unsure total dose Discharge Instructions Instructions: Bacterial Pneumonia (DC) Stand Alone Forms: Nursing Discharge Form Referrals: Gerri Silverman [Primary Care Provider] - (Please call on Wednesday for a follow up. Needs follow up in the next week) Activity:: Activity as Tolerated Equipment/Supplies:: No Equipment Needed Diet:: Normal Diet Discharge Orders Discharge Orders: Discharge Order (Routine); Ordered 06/01/23 Ordered By: Bola Coombs Other Ambulatory Orders: XR chest 2V PA & lateral (Routine) Timeframe: 2 Weeks Location: None Selected Ordered By: Bola Coombs DS: Summary Time Spent with Patient providing and/or coordinating discharge services: Greater than 30 minutes Status at Discharge Functional status at discharge: independent ambulation Overall status at discharge: patient is back to baseline Mental Status: mental status grossly normal Speech and Movement: speech and movement normal Mood: congruent mood Affect: normal affect Quality:SDOH Health Related Social Needs: Health related social needs risk of homeless, transpo insecurity Exam Narrative Exam Narrative: Obese gentleman, laying in bed in no acute distress, 4L NC in place, lungs diffusely diminished but improved as compared to yesterday and still without rhonchi rales or wheezing, heart regular rate rhythm, abdomen obese, soft, nontender, nondistended Psych Mental Status: mental status grossly normal Speech and Movement: speech and movement normal Mood: congruent mood Affect: normal affect DS: Data Vitals/I&O Vitals and I&O: Vital Signs Temperature 97.9 F 06/01/23 09:01 Temperature Source Temporal Artery Scan 06/01/23 09:01 Pulse 60 06/01/23 08:25 Pulse Rhythm Regular 05/31/23 01:30 Pulse 71 06/01/23 07:00 Respiratory Rate 13 06/01/23 08:18 Respiratory Effort Non-Labored 06/01/23 09:01 Respiratory Depth Normal 06/01/23 09:01 Respiratory Pattern Normal 06/01/23 09:01 Blood Pressure 99/58 L 06/01/23 05:16 Blood Pressure Mean 72 06/01/23 05:16 Blood Pressure Position Sitting 06/01/23 09:01 Pulse Oximetry 4 L 06/01/23 09:01 Oxygen Delivery Method Nasal Cannula 06/01/23 09:01 Oxygen Flow Rate 4 06/01/23 08:18 Fraction of Inspired Oxygen (FIO2) 50 06/01/23 04:00 Pain Level 0 06/01/23 09:01 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 05/31/23 03:39 Intake & Output 05/31/23 06/01/23 06/01/23 17:59 05:59 17:59 Intake Total 370 / 370 600 / 970 300 / 300 Output Total 1875 / 1875 2375 / 4250 975 / 975 Balance -1505 / -1505 -1775 / -3280 -675 / -675 Weight 289 lb 7.471 oz 289 lb 14.526 oz Intake: IV 150 / 150 200 / 350 Oral 220 / 220 400 / 620 300 / 300 Output: Urine 1875 / 1875 2375 / 4250 975 / 975 Other: Urine Color Pale Yellow Yellow Urine Appearance Clear Clear Clear Urine Odor None None Normal Comment uses urinal indep uses urinal indep Voiding Methods Urinal Urinal Urinal Data Completed and Pending Labs on day of discharge: Labs from last 24 hours 06/01/23 05/31/23 05/31/23 05:52 11:10 11:08 WBC 12.61 H RBC 3.71 L Hgb 11.1 L Hct 33.5 L MCV 90 MCH 29.9 MCHC 33.1 RDW 14.8 H Plt Count 342 MPV 9.7 Sodium 141 Potassium 3.8 Chloride 103 Carbon Dioxide 33.4 H Anion Gap 4.6 BUN 19 H Creatinine 1.1 Est GFR (CKD-EPI 2020) 79.77 Glucose 122 H Calcium 9.3 Adenovirus DNA Negative Human Metapneumovir RNA Negative Urine Legionella Ag Negative Parainfluenza 1 (PCR) Negative Parainfluenza 2 (PCR) Negative Parainfluenza 3 (PCR) Negative Parainfluenza 4 (PCR) Negative Resp Viral Spec Desc Not Applicable Rhinovirus (PCR) Negative Preliminary micro results at discharge 05/30/23 01:43 Sputum Culture - Preliminary Sputum Normal Bentley Bernice Albicans 05/28/23 19:20 Blood Culture - Preliminary Blood NO GROWTH 72 HOURS 05/28/23 19:20 Blood Culture - Preliminary Blood NO GROWTH 72 HOURS PFSH All Active Problems (Updated 06/01/23 @ 00:06 by BANDAR MORROW) Acute on chronic hypoxic respiratory failure (Acute) Anemia (Chronic) Leukocytosis (Acute) Community acquired pneumonia (Acute) Discharge planning issues (Acute) DVT prophylaxis (Acute) Elevated CK (Acute) Elevated AST (SGOT) (Acute) Acute kidney failure (Acute) Fall (Acute) Laceration of head (Acute) Blunt head trauma (Acute) Blunt trauma of multiple sites of trunk (Acute) Pulmonary hypertension (Acute) Erectile dysfunction (Acute) 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 (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) History of Brittany's gangrene (Acute) Obesity, morbid, BMI 40.0-49.9 (Acute) Obesity hypoventilation syndrome (Chronic) Respiratory failure with hypoxia and hypercapnia (Acute) Diastolic heart failure (Acute) Anxiety (Acute) Cellulitis of leg, left (Acute) Angina pectoris (Chronic) GERD (gastroesophageal reflux disease) (Chronic) Depression (Chronic) Morbid obesity (Chronic) AICD (automatic cardioverter/defibrillator) present (Acute) placed at [facility] for ischemic dilated cardiomyopathy [employer] [address] DR 01/27/21 RH HLD (hyperlipidemia) (Acute) ETOH abuse (Chronic) Drug dependence (Chronic) COPD (chronic obstructive pulmonary disease) (Chronic) Ischemic cardiomyopathy (Chronic) Afib (Chronic) Tobacco use disorder (Acute) Hx of hyperlipidemia (Acute) HTN (hypertension) (Chronic) CAD (coronary artery disease) (Chronic) Medical History Hypercapnia Acute non-ST elevation myocardial infarction (NSTEMI) Folliculitis Fluid overload Acute hypokalemia Acute respiratory failure with hypoxia and hypercapnia Acute on chronic combined systolic (congestive) and diastolic (congestive) heart failure Sepsis Left thigh pain Multifocal pneumonia Acute respiratory failure with hypoxia Hypokalemia Lactic acidosis Leukocytosis CHF exacerbation Consolidation of left lower lobe of lung Medication monitoring encounter Pulmonary nodules Acute on chronic heart failure with reduced ejection fraction and diastolic dysfunction Somnolence Alcohol use disorder, severe, dependence [facility] 01/21 Dental infection Exertional chest pain Homelessness CHF (congestive heart failure) Pacemaker Cardiac arrest Surgical History H/O hand surgery History of coronary artery stent placement History of tonsillectomy History of hernia repair History of right knee joint replacement Social History Smoking/Tobacco Use Status: Current every day Tobacco Type: cigarettes and e- cigarettes Smoking risk assessment performed?: Yes Alcohol Intake: never Details: Former heavy alcohol use. Drug use: Occasionally Substance use type: heroin and amphetamines Housing: other Do you feel safe at home: Yes Do you feel safe in your relationship?: Yes Additional Social history: going through divorce, living in [facility] through homeless program Time Spent with Patient Time Spent with Patient: <45 minutes Time was spent: preparing to see the patient(eg.review tests), obtaining and/or reviewing separately otained hiistory, ordering medications,tests, procedures, referring, communicating with other health human services care specialist, indepentently interpreting results, counseling the patient and care coordination
[2023-06-01] MEDS: DOXYCYCLINE 100 MG in Normal Saline 100 ML IVPB ×2 (11:13→21:04)
--- NOTE | 2023-06-01 12:31 | W.PM.PROGNOT ---
Date of Service Date of service: 06/01/23 Time of Service: 12:31 Assessment and Plan Assessment and plan (1) Multifocal pneumonia: Assessment and plan: -patient had been on rocephin, doxy and azithro -apprecaite Dr. Vidales and res: -antibiotics changed to IV doxy and zosyn (rocephin and azithro DCed) -continue prednisone and scheduled/PRN inhalers and nebulizers -f/u fungitell, legionella, mycoplasma, PJP, resp viral panel -if respiratory status worsens would emperically treat with Micafungin -continue aggressive diuresis with 40mg IV lasix Q6hrs (2) COPD (chronic obstructive pulmonary disease): Status: Chronic Assessment and plan: -contributing factor in patients acute on chronic hypoxic respiratory failure -continue treatment as above Qualifiers: COPD type: chronic bronchitis Chronic bronchitis type: simple Qualified Code(s): J41.0 - Simple chronic bronchitis (3) Acute on chronic hypoxic respiratory failure: Status: Acute Assessment and plan: -likely due to multifocal PNA and COPD exaerbation at noted above -currently on 4L NC at rest but significantly desats with ambulation down to low 80's (4) Acute kidney failure: Status: Acute Assessment and plan: -now resolved. -BUN 22, creatinine 1.2, iv fluids stopped -CT abdomen and pelvis no hydronephrosis, but small non-obstructive stone 2 mm in right renal superior pole Qualifiers: Acute renal failure type: unspecified Qualified Code(s): N17.9 - Acute kidney failure, unspecified (5) Elevated CK: Status: Acute Assessment and plan: -not true rhabdomyolysis but probably d/t his falls. CK 933 > 925 > 415 today. iv fluids stopped. (6) Fall: Status: Acute Assessment and plan: -Case is reported as a mechanical slip an fall. -He relates second fall to stiffness from the first. -I do not appreciate a focal neurologic deficit. -Walk with nursing, get PT if concern for sately at home. Qualifiers: Encounter type: initial encounter Qualified Code(s): W19.XXXA - Unspecified fall, initial encounter (7) Blunt head trauma: Status: Acute Assessment and plan: -Suture in ED, looks good. -CT head/neck negative for intracranial pathology. Qualifiers: Encounter type: initial encounter Qualified Code(s): S09.8XXA - Other specified injuries of head, initial encounter (8) Drug dependence: Status: Chronic Assessment and plan: -On suboxone at [facility]. -Dose was confirmed and he is now on his oupatient dose. -he has issues w/ homelessness which complicates his drug abuse problems. (9) Ischemic cardiomyopathy: Status: Chronic Assessment and plan: -no chest pain or palpitations, negative troponin I x two. -continue home meds of Ranexa, Imdur, ASA and atorvastatin but holding his diuretics in light of his dehydration -keep off diuretics for now as he appears to be euvolemic and I have stopped his iv fluids. -he will eventually need to go back on some maintenance diuretics but his renal function has just recovered. (10) Afib: Status: Chronic Assessment and plan: -stable, heart tones sound to be in regular rhythm, chronically on amiodarone. EKG demonstrated sinus rhythm w/ no ischemic changes. Qualifiers: Atrial fibrillation type: paroxysmal Qualified Code(s): I48.0 - Paroxysmal atrial fibrillation (11) DVT prophylaxis: Status: Acute Assessment and plan: -chronically on apixaban Subjective Subjective Interval history since last seen: Patient stated that he was feeling better and would like to go home. However, after doing a home O2 evaluation with Respiratory Therapy, the patient required significant O2, desaturated down to 81% and required time before his O2 sat recovered. At which time the patient agreed to remain hospitalized for ongoing care. Exam Narrative Exam Narrative: Obese gentleman, laying in bed in no acute distress, 4L NC in place, lungs diffusely diminished but improved as compared to yesterday and still without rhonchi rales or wheezing, heart regular rate rhythm, abdomen obese, soft, nontender, nondistended Psych Mental Status: mental status grossly normal Speech and Movement: speech and movement normal Mood: congruent mood Affect: normal affect Objective Last Vital Signs Temp 97.9 F 06/01/23 09:01 Pulse 60 06/01/23 08:25 Resp 13 06/01/23 08:18 BP 99/58 L 06/01/23 05:16 Pulse Ox 4 L 06/01/23 09:01 Laboratory Results - last 24 hr 05/31/23 05/31/23 06/01/23 11:08 11:10 05:52 WBC 12.61 H RBC 3.71 L Hgb 11.1 L Hct 33.5 L MCV 90 MCH 29.9 MCHC 33.1 RDW 14.8 H Plt Count 342 MPV 9.7 Sodium 141 Potassium 3.8 Chloride 103 Carbon Dioxide 33.4 H Anion Gap 4.6 BUN 19 H Creatinine 1.1 Est GFR (CKD-EPI 2020) 79.77 Glucose 122 H Calcium 9.3 Adenovirus DNA Negative Human Metapneumovir RNA Negative Urine Legionella Ag Negative Parainfluenza 1 (PCR) Negative Parainfluenza 2 (PCR) Negative Parainfluenza 3 (PCR) Negative Parainfluenza 4 (PCR) Negative Resp Viral Spec Desc Not Applicable Rhinovirus (PCR) Negative Time Spent with Patient Time Spent with Patient: >50 minutes Time was spent: preparing to see the patient(eg.review tests), obtaining and/or reviewing separately otained hiistory, ordering medications,tests, procedures, referring, communicating with other health patient care director, indepentently interpreting results, counseling the patient and care coordination
[2023-06-01] MEDS: LORazepam 1 MG TAB PO ×4 (12:54→20:12)
[2023-06-01] MEDS: hydrOXYzine HCL 10 MG TAB PO (20:12)
[2023-06-01] MEDS: Atorvastatin 40 MG TAB 80 MG PO (20:12)
[2023-06-01] MEDS: Melatonin 3 MG TAB 9 MG PO (20:12)
[2023-06-01 23:32] LABS: Streptococcus Pneumoniae Ag, U Negative (Negative)
[2023-06-02] VITALS (14 sets, daily range): BP systolic 101–114; BP diastolic 57–73; PULSE 60–90; RESP 2–20; TEMP 36–36.7; O2SAT 90–97
[2023-06-02] MEDS: PIPERACILLIN/TAZO 3.375 GM in Normal Saline 50 ML IVPB ×4 (00:08→23:44)
[2023-06-02] MEDS: LORazepam 1 MG TAB PO ×4 (01:53→19:51)
[2023-06-02 07:05] LABS: HCT 35.8 % (40.0-50.0); MCH 30.4 pg (27.0-33.0); MCHC 33.5 % (32.0-36.0); MCV 91 fL (80-95); MPV 9.7 fL (8.0-11.0); Platelet Count 334 10^3/uL (130-400); RBC 3.95 10^6/uL (4.36-5.78); RDW 14.6 % (11.8-14.1); RDW-SD 48.8 fL; WBC 12.38 10^3/uL (4.4-10.8)
[2023-06-02 07:42] LABS: Anion Gap 3.6 mmol/L (3-11); BUN 18 mg/dL (7-18); CO2 38.4 mmol/L (21.0-32.0); Calcium 9.1 mg/dL (8.5-10.1); Chloride 101 mmol/L (98-107); Estimated GFR 89.44 (mL/min/1.73m2); Glucose 93 mg/dL (74-106); Potassium 3.2 mmol/L (3.5-5.1); Sodium 143 mmol/L (136-145)
[2023-06-02] MEDS: Tiotropium/Olodaterol 10 PUFF INHALER 2 PUFF IH (07:57)
[2023-06-02] MEDS: Albuterol/Ipratropium 3 ML UPD VIAL UPD ×4 (07:57→20:17)
--- NOTE | 2023-06-02 08:10 | RESPIRATORY ---
RT Assessment Start: 06/01/23 11:29 Freq: .q shift and prn Status: Active Protocol: Document 06/02/23 07:59 (Rec: 06/02/23 08:08 [id number]) RT Assessment Pulmonary History Pulmonary History COPD,Other Smoking History Smoking/Tobacco Use Status Current-Occasional Tobacco: How many years used 30 Tobacco Type cigarettes,e-cigarettes Cigarettes per Day 6 Years smoked 30 OXYGEN HISTORY: Supplemental O2 At Rest 4 With Exertion 4 CPAP Settings N/A Can use home machine N/A BIPAP Settings N/A Can you home machine N/A Trilogy/AVAPS Can use home machine Yes: Patient does not have Trilogy here. Currently using NKV-330 PRVC DME/Compliance DME [employer] Compliance Low Current Respiratory Symptoms Current Respiratory Symptoms Cough Activity Activity Level Goes for short walks, able to do daily living cleaning. Respiratory Breath Sounds Breath Sounds Clear Response Mild response,subjective improvement Pulse Rate <100 Respiratory Rate <18 Shortness of Breath On exertion Respiratory Therapy Score Total 2 Assessment and Plan RT Treatment Protocol Bronchodilator Aerosol Therapy Protocol,Lung Expansion Therapy Protocol,Bronchial Hygiene Therapy Protocol Note Patient is currently using Vibra-PEP acapella device, incentive spirometer, receiving Duonebs QID as well as his Stiolto inhaler. Currently on 6L large-bored nasal cannula. Patient uses home Trilogy device, currently not here in hospital. Patient using NKV-330 machine on PRVC settings VT 500 EPAP 7 RR 10 FiO2 50% iTime .9 Iron 3 Max pressure 15 Min pressure 8 Compliance with NIV while in hospital is low.
[2023-06-02] MEDS: Gabapentin 400 MG CAP PO ×4 (08:34→19:51)
[2023-06-02] MEDS: Aspirin E.C. 81 MG TABEC PO (08:34)
[2023-06-02] MEDS: Pantoprazole 40 MG TABCR PO (08:34)
[2023-06-02] MEDS: busPIRone 15 MG TAB PO ×3 (08:34→19:51)
[2023-06-02] MEDS: predniSONE 20 MG TAB 40 MG PO (08:34)
[2023-06-02] MEDS: Folic Acid 1 MG TAB PO (08:34)
[2023-06-02] MEDS: Isosorbide Mononitrate 30 MG TABCR PO (08:34)
[2023-06-02] MEDS: Amiodarone 200 MG TAB 100 MG PO (08:35)
[2023-06-02] MEDS: Escitalopram 10 MG TAB PO (08:35)
[2023-06-02] MEDS: Ranolazine 500 MG TABCR PO ×2 (08:35→19:51)
[2023-06-02] MEDS: Apixaban 5 MG TAB PO ×2 (08:35→19:51)
[2023-06-02] MEDS: Buprenorphine/Naloxone 8 mg/2 mg FILM 1 EACH SL (08:35)
[2023-06-02] MEDS: Multivitamin w/Minerals TAB 1 TAB PO (08:35)
[2023-06-02] MEDS: Buprenorphine/Naloxone 2 mg/0.5 mg FILM 1 EACH SL (08:36)
[2023-06-02] MEDS: Normal Saline Flush 10 ML SYR IVP ×2 (08:40→19:52)
--- NOTE | 2023-06-02 10:22 | PDOC.CMPRO ---
Date of service: 06/02/23 Time of Service: 10:22 Care Management Progress Note Progress Note Text Progress Note Text: S/O:Luis was lying in bed when CM met with him. He was sleepy and when asked how he is doing, stated not too good. I am sick and not getting better. He then stated that he probably is better than before, but does not feel well. Luis is now on nasal oxygen but continues to require 6-7L/min to maintain oxygen saturation levels above 90%. Luis also expressed concern about housing. He has had a room at [facility] through [place] for almost a year and was supposed to keep the room until the end of August. Unfortunately he has been notified that he lost the room because he broke the rules. When his room was checked after he went to the hospital evidence of his having smoked in the room was found and Luis admitted to the fact. When he is ready for discharge he can reach out to [facility] and/or the [facility] for assistance with housing. A: Luis is a 52 year old man admitted on 05/28/23 with pneumonia P:Luis is now unsheltered and will need to seek housing through [facility] or local long-term. He will transport via [facility] coordinated by CM and will follow up with community providers and plan of care. CM will continue to follow and support discharge needs. SDOH(Care Management) Screening Will the Patient Participate in the Screening?: Yes Do you worry about having a steady place to live?: yes Problems where you live: other In the past 12 months, have you had to go without electric, gas, oil or water in your home?: no Have you or anyone in your house had to go without enough food to eat?: no Has lack of transportation kept you from medical appointments or from doing things needed for daily living?: yes Has anyone in your support network made you feel unsafe for any reason?: no Health Related Social Needs Health related social needs: housing instability, housed, with risk of homelessness(Z59.811) and transportation insecurity(Z59.82)
--- NOTE | 2023-06-02 10:23 | W.PM.PROGNOT ---
Date of Service Date of service: 06/02/23 Time of Service: 10:24 Assessment and Plan Assessment and plan (1) Multifocal pneumonia: Assessment and plan: -patient had been on rocephin, doxy and azithro -apprecaite Dr. Vidales and res: -antibiotics changed to IV doxy and zosyn (rocephin and azithro DCed) -continue prednisone and scheduled/PRN inhalers and nebulizers -f/u fungitell, legionella, mycoplasma, PJP, resp viral panel -if respiratory status worsens would emperically treat with Micafungin -continue aggressive diuresis with 40mg IV lasix Q6hrs (2) COPD (chronic obstructive pulmonary disease): Status: Chronic Assessment and plan: -contributing factor in patients acute on chronic hypoxic respiratory failure -continue treatment as above Qualifiers: COPD type: chronic bronchitis Chronic bronchitis type: simple Qualified Code(s): J41.0 - Simple chronic bronchitis (3) Acute on chronic hypoxic respiratory failure: Status: Acute Assessment and plan: -likely due to multifocal PNA and COPD exaerbation at noted above -currently on 4L NC at rest but significantly desats with ambulation down to low 80's (4) Acute kidney failure: Status: Acute Assessment and plan: -now resolved. -BUN 22, creatinine 1.2, iv fluids stopped -CT abdomen and pelvis no hydronephrosis, but small non-obstructive stone 2 mm in right renal superior pole Qualifiers: Acute renal failure type: unspecified Qualified Code(s): N17.9 - Acute kidney failure, unspecified (5) Elevated CK: Status: Acute Assessment and plan: -not true rhabdomyolysis but probably d/t his falls. CK 933 > 925 > 415 today. iv fluids stopped. (6) Fall: Status: Acute Assessment and plan: -Case is reported as a mechanical slip an fall. -He relates second fall to stiffness from the first. -I do not appreciate a focal neurologic deficit. -Walk with nursing, get PT if concern for sately at home. Qualifiers: Encounter type: initial encounter Qualified Code(s): W19.XXXA - Unspecified fall, initial encounter (7) Blunt head trauma: Status: Acute Assessment and plan: -Suture in ED, looks good. -CT head/neck negative for intracranial pathology. Qualifiers: Encounter type: initial encounter Qualified Code(s): S09.8XXA - Other specified injuries of head, initial encounter (8) Drug dependence: Status: Chronic Assessment and plan: -On suboxone at [facility]. -Dose was confirmed and he is now on his oupatient dose. -he has issues w/ homelessness which complicates his drug abuse problems. (9) Ischemic cardiomyopathy: Status: Chronic Assessment and plan: -no chest pain or palpitations, negative troponin I x two. -continue home meds of Ranexa, Imdur, ASA and atorvastatin but holding his diuretics in light of his dehydration -keep off diuretics for now as he appears to be euvolemic and I have stopped his iv fluids. -he will eventually need to go back on some maintenance diuretics but his renal function has just recovered. (10) Afib: Status: Chronic Assessment and plan: -stable, heart tones sound to be in regular rhythm, chronically on amiodarone. EKG demonstrated sinus rhythm w/ no ischemic changes. Qualifiers: Atrial fibrillation type: paroxysmal Qualified Code(s): I48.0 - Paroxysmal atrial fibrillation (11) DVT prophylaxis: Status: Acute Assessment and plan: -chronically on apixaban Subjective Subjective Interval history since last seen: Patient states that while he is feeling better than yesterday, he understands that he should remain hospitalized. He is stated some ongoing shortness of breath with ambulation around his room to the bathroom. Otherwise he has no other complaints or concerns at this time. Exam Narrative Exam Narrative: Obese gentleman, laying in bed in no acute distress, 4L NC in place, lungs diffusely diminished but improved as compared to yesterday and still without rhonchi rales or wheezing, heart regular rate rhythm, abdomen obese, soft, nontender, nondistended Psych Mental Status: mental status grossly normal Speech and Movement: speech and movement normal Mood: congruent mood Affect: normal affect Objective Last Vital Signs Temp 96.8 F L 06/02/23 07:27 Pulse 90 06/02/23 07:57 Resp 19 06/02/23 07:57 BP 109/57 L 06/02/23 07:27 Pulse Ox 92 06/02/23 07:59 Laboratory Results - last 24 hr 06/02/23 05:55 WBC 12.38 H RBC 3.95 L Hgb 12.0 L Hct 35.8 L MCV 91 MCH 30.4 MCHC 33.5 RDW 14.6 H Plt Count 334 MPV 9.7 Sodium 143 Potassium 3.2 L Chloride 101 Carbon Dioxide 38.4 H Anion Gap 3.6 BUN 18 Creatinine 1.0 Est GFR (CKD-EPI 2020) 89.44 Glucose 93 Calcium 9.1 Time Spent with Patient Time Spent with Patient: >50 minutes Time was spent: preparing to see the patient(eg.review tests), obtaining and/or reviewing separately otained hiistory, ordering medications,tests, procedures, referring, communicating with other health progressive care unit registered nurse, indepentently interpreting results, counseling the patient and care coordination
[2023-06-02] MEDS: DOXYCYCLINE 100 MG in Normal Saline 100 ML IVPB ×2 (10:30→21:08)
[2023-06-02] MEDS: Nicotine 14 MG/24 HR PATCH TD (11:59)
[2023-06-02 12:31] LABS: Fungitell Qualitative Positive (Negative); Fungitell Quantitative Value 94 pg/mL (<60 pg/mL)
[2023-06-02] MEDS: Furosemide 40 MG/4 ML VIAL IVP ×2 (13:29→21:08)
[2023-06-02] MEDS: Atorvastatin 40 MG TAB 80 MG PO (19:51)
[2023-06-02] MEDS: Acetaminophen 325 MG TAB PO (19:51)
[2023-06-02] MEDS: Melatonin 3 MG TAB 9 MG PO (23:45)
[2023-06-02] MEDS: hydrOXYzine HCL 10 MG TAB PO (23:45)
[2023-06-03 03:09] VITALS: BP 125/71; PULSE 50; RESP 19; TEMP 36.2; O2SAT 96
[2023-06-03] MEDS: LORazepam 1 MG TAB PO ×3 (04:34→14:17)
[2023-06-03 07:23] VITALS: BP 104/65; PULSE 51; RESP 12; TEMP 36.4; O2SAT 93
[2023-06-03] MEDS: PIPERACILLIN/TAZO 3.375 GM in Normal Saline 50 ML IVPB (07:49)
[2023-06-03] MEDS: Acetaminophen 325 MG TAB PO (07:49)
[2023-06-03] MEDS: Pantoprazole 40 MG TABCR PO (07:49)
[2023-06-03] MEDS: Normal Saline Flush 10 ML SYR IVP (07:50)
[2023-06-03 07:58] VITALS: PULSE 86; PULSE 90; RESP 18; O2SAT 92; O2SAT 93
[2023-06-03] MEDS: Tiotropium/Olodaterol 10 PUFF INHALER 2 PUFF IH (07:58)
[2023-06-03] MEDS: Albuterol/Ipratropium 3 ML UPD VIAL UPD ×2 (07:58→12:50)
[2023-06-03 07:59] VITALS: O2SAT 92
[2023-06-03 08:09] VITALS: BP 107/63; PULSE 53; RESP 19; TEMP 36.4; O2SAT 91
--- NOTE | 2023-06-03 08:43 | PDOC.CMPRO ---
Date of service: 06/03/23 Time of Service: 08:43 Care Management Progress Note Progress Note Text Progress Note Text: S/O:Luis was lying in bed when CM met with him. A: Luis is a 52 year old man admitted on 05/28/23 with pneumonia P:Luis is now unsheltered and will need to seek housing through [facility] or local chcf. He will transport via [facility] coordinated by CM and will follow up with community providers and plan of care. CM will continue to follow and support discharge needs. SDOH(Care Management) Screening Will the Patient Participate in the Screening?: Yes Do you worry about having a steady place to live?: yes Problems where you live: other In the past 12 months, have you had to go without electric, gas, oil or water in your home?: no Have you or anyone in your house had to go without enough food to eat?: no Has lack of transportation kept you from medical appointments or from doing things needed for daily living?: yes Has anyone in your support network made you feel unsafe for any reason?: no Health Related Social Needs Health related social needs: housing instability, housed, with risk of homelessness(Z59.811) and transportation insecurity(Z59.82)
[2023-06-03] MEDS: Buprenorphine/Naloxone 2 mg/0.5 mg FILM 1 EACH SL (08:56)
[2023-06-03] MEDS: Amiodarone 200 MG TAB 100 MG PO (08:56)
[2023-06-03] MEDS: Buprenorphine/Naloxone 8 mg/2 mg FILM 1 EACH SL (08:56)
[2023-06-03] MEDS: Escitalopram 10 MG TAB PO (08:57)
[2023-06-03] MEDS: Ranolazine 500 MG TABCR PO (08:58)
[2023-06-03] MEDS: predniSONE 20 MG TAB 40 MG PO (08:58)
[2023-06-03] MEDS: Isosorbide Mononitrate 30 MG TABCR PO (08:58)
[2023-06-03] MEDS: Apixaban 5 MG TAB PO (08:58)
[2023-06-03] MEDS: Multivitamin w/Minerals TAB 1 TAB PO (08:58)
[2023-06-03 08:59] LABS: Pneumocystis PCR, Result Negative; Specimen Source sputum
[2023-06-03] MEDS: busPIRone 15 MG TAB PO ×2 (08:59→14:17)
[2023-06-03] MEDS: Gabapentin 400 MG CAP PO ×3 (08:59→16:03)
[2023-06-03] MEDS: Folic Acid 1 MG TAB PO (08:59)
[2023-06-03] MEDS: Aspirin E.C. 81 MG TABEC PO (09:00)
--- NOTE | 2023-06-03 10:01 | IN_ITS ---
PT Notes Visit Reasons: Pneumonia Inpatient Physical Therapy Evaluation Date: 06/03/2023 Referring Doctor: Chad Fonseca MD PT Orders: PT CONSULT: Fall safety assessment fall Precautions: Standard. Fall. Activity as tolerated. Patient Profile/Admitting Diagnosis: Patient is a 52-year-old with polysubstance use disorder with recent opioid and amphetamine use and on buprenorphine who presented to the ED after a fall with head trauma. He states he was in his normal state of health until the day prior to admission when he slipped on the wet floor of the bathroom and hit his back an back of his neck against the toilet. Patient is admitted for management of multifocal pneumonia, acute on chronic hypoxic respiratory failure for which he went to the ICU on 05/31/2023, COPD, acute kidney failure, elevated CK, blunt head trauma from a fall, drug dependence, ischemic cardiomyopathy and atrial fibrillation. Head and neck CT on 05/28/2023 showed: 1. The examination is limited due to patient motion artifact. 2. No acute intracranial process. 3. There is a large laceration overlying the left frontal and parietal bones. 4. No acute fracture or subluxation in the cervical spine. PMHX: All Active Problems (Updated 05/28/23 @ 22:39 by Farhat Valdez) Elevated AST (SGOT) (Acute) Acute kidney failure (Acute) Fall (Acute) Laceration of head (Acute) Blunt head trauma (Acute) Blunt trauma of multiple sites of trunk (Acute) Pulmonary hypertension (Acute) Erectile dysfunction (Acute) On long term care social worker drug therapy (Acute) History of Brittany's gangrene (Acute) Obesity, morbid, BMI 40.0-49.9 (Acute) Obesity hypoventilation syndrome (Chronic) Respiratory failure with hypoxia and hypercapnia (Acute) Diastolic heart failure (Acute) Anxiety (Acute) Cellulitis of leg, left (Acute) Angina pectoris (Chronic) GERD (gastroesophageal reflux disease) (Chronic) Depression (Chronic) Morbid obesity (Chronic) AICD (automatic cardioverter/defibrillator) present (Acute) placed at [facility] for ischemic dilated cardiomyopathy Sruthi Robles DR 01/27/21 HLD (hyperlipidemia) (Acute) ETOH abuse (Chronic) Drug dependence (Chronic) COPD (chronic obstructive pulmonary disease) (Chronic) Ischemic cardiomyopathy (Chronic) Afib (Chronic) Tobacco use disorder (Acute) Hx of hyperlipidemia (Acute) HTN (hypertension) (Chronic) CAD (coronary artery disease) (Chronic) Medical History (Updated 05/28/23 @ 22:39 by Farhat Valdez) Hypercapnia Acute non-ST elevation myocardial infarction (NSTEMI) Folliculitis Fluid overload Acute hypokalemia Acute respiratory failure with hypoxia and hypercapnia Acute on chronic combined systolic (congestive) and diastolic (congestive) heart failure Sepsis Left thigh pain Multifocal pneumonia Acute respiratory failure with hypoxia Hypokalemia Lactic acidosis Leukocytosis CHF exacerbation Consolidation of left lower lobe of lung Medication monitoring encounter Pulmonary nodules Acute on chronic heart failure with reduced ejection fraction and diastolic dysfunction Somnolence Alcohol use disorder, severe, dependence [facility] 01/21Dental infection Exertional chest pain Homelessness CHF (congestive heart failure) Pacemaker Cardiac arrest Surgical History (Updated 05/28/23 @ 22:18 by Farhat Valdez) H/O hand surgery History of coronary artery stent placement History of tonsillectomy History of hernia repair History of right knee joint replacement Social History/Home Situation: Lives alone at the [facility]. Unemployed. Recently . Independent with all aspects of ADLs prior to admission. Equipment Owned/DME: Supplemental O2 for use as needed Subjective: Verbalized having an anxiety attack, worried about where he will go once discharged. Wanted anxiety pills from nurse before working with PT. Nurse student Zenon aware and administered ordered medication to relieve anxiety. Patient denied headache, chest pain, and lightheadedness throughout the walk. Social History/Home Situation: Lives alone in a private home with one-step to enter. Recently . Independent with all aspects of ADLs prior to admission Equipment Owned/DME: None Objective: General Observation: Sitting at edge of bed. IV left upper extremity, supplemen yesenia O2 4 L. Fernie on laceration on skin overlying the left frontoparietal area, no drainage. Mental Status: Alert and oriented as to person, place, time, and purpose. Able to pay attention, focus, and respond appropriately. Pain: None reported Vital Signs: oxygen saturation low of 88% on 3 L and high of 94%, HR ranged from 78-98 bpm ROM: Right Upper Extremity: Shoulder Flexion WFL. Shoulder abduction WFL. Elbow flexion WFL. Wrist flexion WFL. Functional opening and closing of hand WFL. Left Upper Extremity: Shoulder Flexion WFL. Shoulder abduction WFL. Elbow flexion WFL. Wrist flexion WFL. Functional opening and closing of hand WFL. Right Lower Extremity: Hip flexion WFL. Hip abduction WFL. Knee flexion WFL. Ankle dorsiflexion WFL. Ankle plantarflexion WFL. Left Lower Extremity: Hip flexion WFL. Hip abduction WFL. Knee flexion WFL. Ankle dorsiflexion WFL. Ankle plantarflexion WFL. Strength: Right Upper Extremity: Shoulder flexors 4/5. Shoulder abductors 4/5. Elbow flexors 4/5. Elbow extensors 5/5. International Account Representative strong. Left Upper Extremity: Shoulder flexors 4/5. Shoulder abductors 4/5. Elbow flexors 4/5. Elbow extensors 5/5. International Account Representative strong. Right Lower Extremity: Hip flexors 4/5. Hip abductors 4/5. Knee flexors 5/5. Knee extensors 5/5. Ankle dorsiflexors 5/5. Ankle plantarflexors 5/5. Left Lower Extremity: Hip flexors 4/5. Hip abductors 4/5. Knee flexors 5/5. Knee extensors 5/5. Ankle dorsiflexors 5/5. Ankle plantarflexors 5/5. Bed Mobility/Transfers: Rolling independent Supine to sit independent Sit to supine independent Sit to stand independent Stand to sit independent Reclining chair to bed independent Gait: Instructed patient with level surface ambulation of 250 feet requiring standby assist. No assistive device needed however gait speed minimally reduced. 3 L of oxygen via NC needed. Patient did not report shortness of breath and fatigue after activity. No loss of balance. No report of chest pain nor headache. Balance: Static Sitting: Normal Dynamic Sitting: Normal Static Standing: Good Dynamic Standing: Good Special Tests: Mobility Limitations Standardized Measure [facility] AM-PAC 6 clicks Basic Mobility Inpatient Short Form: Raw Score: 23 CMS Score: 11% deficit 4-Stage balance Test: Able to maintain feet together, semi-tandem, and full tandem with L leg leading for 10 seconds; unable to with full tandem with R leg leading and one- legged stance. Informed Consent/Education: Patient was instructed in purpose of PT consult and plan of care. Agreeable to proceed with established PT POC to achieve personal goals. Assessment: Patient presents with clinical signs and symptoms consistent with current/admitting diagnoses that have resulted to mobility limitations, gait instability, generalized weakness, and overall ADL decline as demonstrated by the following impairment level findings: 1. Decreased strength to B LE major muscle groups 2. Impaired activity tolerance 3. Desaturation to 88% even on 3 L with ambulation activity Impairments are contributing to the following functional limitations: 1. Difficulty with ambulation 2. Increased completion time for mobility ADL performance 3. Increased risk for falls 60 Patient [place] 88503 moderate complexity based on the following: History: 52-year-old male with past medical history as indicated above Examination: Demonstrable impairment in strength, balance, and mobility level with underlying impairments and functional limitations as exhibited above as well as deficit score of 11% utilizing the [facility] Mobility Inpatient Short Form Presentation: Evolving Decision Makin moderate complexity Goals: Goals X1 week 1. Independent gait on level surface with use of no AD for at least 300 feet without report of pain nor dyspnea 2. Independent stair negotiation while holding onto 1 rails for at least 3 steps without report of pain nor dyspnea 3. Independent with home exercise program 4. Good static and dynamic standing balance/tolerance Plan of Care/Treatment Plan: 1-2x/day, 7 days/week x 1 week. Plan of care has been reviewed with the SCOURING TRAIN OPERATOR CHIEF providing the service under Physical Therapy direction. Initiate Physical Therapy intervention for pain management as needed, strengthening, bed mobility, transfers, gait, stairs, balance training, and use of assistive device. --Training with HEP on standing exercises while holding onto sturdy surface, energy conservation, and fall reduction to be done in the succeeding sessions. DISCHARGE RECOMMENDATIONS: [X] Home with no services. Home when medically cleared by hospitalist. [] Home with services [specify] [] Home with outpatient PT [] [] SNF for continued rehabilitation [] [] Clinical Research Nurse Care [] [] SNF versus LTC based on ability to participate and progress [] TREATMENT CODE/TIME: 9716 2 x 28 minutes for 1 unit beginning at 10:01 AM. Thank you for the opportunity to participate in the care of this patient. Rosangela Bansal PT, DPT, CLT [facility] [place], [place]
[2023-06-03 11:04] VITALS: BP 124/53; PULSE 65; RESP 14; TEMP 36.5; O2SAT 95
--- NOTE | 2023-06-03 11:22 | RESPIRATORY ---
Luis is being discharged today to the [facility] in [facility]. [address] The [facility] is willing to accommodate Luis's O2 needs and equipment. RT called [facility] and spoke to Antonia - they do not have any issues with Luis having his equipment at the [facility] with him. Luis's new baseline O2 requirement is 6L /. [facility] will excelsior picker his old O2 equipment from the [facility] (his old concentrator only goes up to 5L) and then will set him up with new equipment (new concentrator that goes up to 10L) at the [facility] this afternoon.
--- NOTE | 2023-06-03 13:57 | PT.INTREAT ---
Date of service: 06/03/23 Time of Service: 14:04 PT Notes Visit Reasons: Pneumonia Inpatient Physical Therapy Treatment Note [facility] Date: 06/03/23 PRECAUTIONS: Fall, standard, activity as tolerated. SUBJECTIVE: Patient is pleasant and agreeable, excited and reportedly anxious about discharging this afternoon. Smiles easily and makes several jokes. OBJECTIVE: Standing unsupported speaking with nursing staff when this clinician enters. Agreeable to brief treatment session, as his ride will be arriving in ~ 50 minutes. ? PAIN: none reported VITALS: monitored by nursing staff. ? ? ? BED MOBILITY/TRANSFERS? Rolling L/R: not assessed Supine-sit: not assessed ? Sit-supine: not assessed ? Sit-stand: not assessed ? Stand-sit: not assessed ? Bed-Chair: not assessed ? Chair-bed: not assessed ? Therapeutic Exercises ([id number]): Direct one-on-one instruction in therapeutic exercises to develop strength, endurance, range of motion and flexibility. ? Exercises: Created HEP as follows and reviewed with patient, who demonstrates ability to perform each exercise appropriately Access Code: [email or web address] URL: [email or web address] Date: 06/03/2023 Prepared by: Lily Briscoe Exercises - Standing Hip Abduction with Counter Support - 1 x daily - 7 x weekly - 3 sets - 10 reps - Standing Knee Flexion with Counter Support - 1 x daily - 7 x weekly - 3 sets - 10 reps - Standing Hip Adduction with Counter Support - 1 x daily - 7 x weekly - 3 sets - 10 reps - Standing Hip Extension with Counter Support - 1 x daily - 7 x weekly - 3 sets - 10 reps - Heel Toe Raises with Counter Support - 1 x daily - 7 x weekly - 3 sets - 10 reps - Standing Tandem Balance with Counter Support - 1 x daily - 7 x weekly - 3 sets - 10 reps - Sit to Stand with Counter Support - 1 x daily - 7 x weekly - 3 sets - 10 reps ASSESSMENT:? Patient tolerates therapy well, no complain of pain nor dyspnea. PLAN: Patient to discharge within the hour. No additional physical therapy services recommended at this time. TREATMENT CODE/TIME: 8 minutes beginning at 14:04
[2023-06-03] MEDS: hydrOXYzine HCL 10 MG TAB PO (16:15)
--- NOTE | 2023-06-03 16:58 | CHAPLAIN ---
Pramod was sitting up in bed when I visited. His niece, Mariana, was just leaving. Pramod said he is living at the [facility] currently but a processing lead in a neighboring town is helping him secure an apartment he hopes to move into. He thanked me for visiting and ended the conversation..
--- NOTE | 2023-06-03 18:09 | PDOC.CMDIS ---
Date of service: 06/03/23 Time of Service: 18:09 LACE Index Scoring Tool Questions: Length of Stay (in days): 4 - 6 Was the patient admitted via the E.D.?: Yes Comorbidities: Previous M.I., Congestive Heart Failure and Chronic Pulmonary Disease E.D. Visits: 7 Answers: Total Score: 16 Risk of Readmission: High Risk Care Management Discharge Plan Reason for Hospitalization: pneumonia Discharge Plan: Luis will be discharged to the [facility] in [facility] on [address]. He will be set up with a new high flow oxygen concentrator that can accommodate the 6L/min that he requires. Luis will follow up with his community providers and plan of care and transport via [employer] . Patient/Family Education Needs: Review of discharge instructions, limitations, follow up plan, discuss Ask Me Three Services Needed at Discharge: Oxygen Therapy and Transportation SDOH Health Related Social Needs: Health related social needs risk of homeless, transpo insecurity Health related social needs: housing instability, housed, with risk of homelessness(Z59.811) and transportation insecurity(Z59.82)
== END 2023-06-03 17:35 | disposition home or self-care (01) | DRG 193 ==
LOC: ER 20:05 → MS 20:40 → ICU 05-31 08:59 → MS 06-01 17:01
PROVIDERS: Internal Medicine; Student in an Organized Health Care Education/Training Program; Admitting Provider Family Medicine; Emergency Provider Emergency Medicine; PCP Nurse Practitioner Family; Referring Provider Family Medicine; Visit Provider Family Medicine
DX: J18.9 Pneumonia, unspecified organism (principal); I50.31 Acute diastolic (congestive) heart failure; J96.21 Acute and chronic respiratory failure with hypoxia; J96.22 Acute and chronic respiratory failure with hypercapnia; J44.1 Chronic obstructive pulmonary disease with (acute) exacerbation; N17.9 Acute kidney failure, unspecified; F11.20 Opioid dependence, uncomplicated; E66.2 Morbid (severe) obesity with alveolar hypoventilation; Z68.41 Body mass index [BMI] 40.0-44.9, adult; J44.0 Chronic obstructive pulmonary disease with (acute) lower respiratory infection; W01.198A Fall on same level from slipping, tripping and stumbling with subsequent striking against other object, initial encounter; I25.10 Atherosclerotic heart disease of native coronary artery without angina pectoris; I11.0 Hypertensive heart disease with heart failure; F17.210 Nicotine dependence, cigarettes, uncomplicated; F17.290 Nicotine dependence, other tobacco product, uncomplicated; I48.0 Paroxysmal atrial fibrillation; I25.5 Ischemic cardiomyopathy; F19.90 Other psychoactive substance use, unspecified, uncomplicated; R94.5 Abnormal results of liver function studies; S01.01XA Laceration without foreign body of scalp, initial encounter; I27.20 Pulmonary hypertension, unspecified; F41.9 Anxiety disorder, unspecified; K21.9 Gastro-esophageal reflux disease without esophagitis; F32.A Depression, unspecified; E78.5 Hyperlipidemia, unspecified; F10.10 Alcohol abuse, uncomplicated; I25.2 Old myocardial infarction; Z95.5 Presence of coronary angioplasty implant and graft; Z96.651 Presence of right artificial knee joint; Z79.01 Long term (current) use of anticoagulants; Z95.810 Presence of automatic (implantable) cardiac defibrillator; Z79.899 Other long term (current) drug therapy
CPT/HCPCS: 00123; 12015; 36415; 71275; 74177; 80048; 80053; 80307; 82550; 82805; 84145; 85027; 87040; 87449; 87632; 87637; 87641; 87798; 93005; 94618; 94640; 96365; 96375; 97161; 97162; 97530; 99285; 70450; 71045; 72125; 80320; 81003; 81015; 83735; 83874; 83880; 84484; 85025; 85610; 85730; 86140; 87070; 87205; 87581; 87899; 93010; 94660; 94664; 94667; 94668; 94760; 99232; 99233; 99239; 99291; J0696; J1100; J1940; J2060; J2543; J2930; J3372; J3490; J7512; J7620

== ENCOUNTER 2023-06-08 15:07 | Outpatient (REF) | payer MEDICAID, SELFPAY ==
[2023-06-08 21:18] LABS: Anion Gap 5.6 mmol/L (3-11); BUN 21 mg/dL (7-18); CO2 31.4 mmol/L (21.0-32.0); CREATININE 0.9 mg/dL (0.70-1.30); Chloride 99 mmol/L (98-107); Estimated GFR 101.49 (mL/min/1.73m2); Glucose 157 mg/dL (74-106); Magnesium 2.2 mg/dL (1.8-2.4); Sodium 136 mmol/L (136-145)
== END 2023-06-08 15:08 | disposition home or self-care (01) ==
LOC: NCHCN 15:07
PROVIDERS: PCP Nurse Practitioner Family; Visit Provider Nurse Practitioner Family
DX: I10 Essential (primary) hypertension (principal)
CPT/HCPCS: 80048; 83735

== ENCOUNTER 2023-09-13 08:35 | Outpatient (CLI) | payer SELFPAY | END 2023-09-13 08:36 | disposition home or self-care (01) | LOC: DI.CARD 08:36 | PROVIDERS: PCP Nurse Practitioner Family; Visit Provider Internal Medicine Cardiovascular Disease | DX: I25.10 Atherosclerotic heart disease of native coronary artery without angina pectoris (principal); I48.0 Paroxysmal atrial fibrillation | CPT/HCPCS: 93010 ==